=== PATIENT | female | born 1940 | race Caucasian/White ===

== ENCOUNTER 2020-01-24 12:26 | Outpatient (CLI) | payer MEDICARE, MEDICAID, SELFPAY ==
--- NOTE | 2020-01-24 12:45 | USCV_ITS ---
Janet Calvillo Age: 79 Gender: F : 1940 Exam Date: 01/24/2020 13:06 Ordering Phys: Ryann Boo MD ([email or web address]) Technologist: Harrison Castro Exam Location: [facility] [place] Indication: SOB BP: 112 / 65 HR: 71 Rhythm: Sinus Technical Quality: Fair MEASUREMENTS (Male / Female) Normal Values 2D ECHO LV Diastolic Diameter PLAX 4.6 cm 4.2 - 5.9 / 3.9 - 5.3 cm LV Systolic Diameter PLAX 3.4 cm IVS Diastolic Thickness 1.3 cm 0.6 - 1.0 / 0.6 - 0.9 cm IVS Systolic Thickness 1.0 cm LVPW Diastolic Thickness 1.1 cm 0.6 - 1.0 / 0.6 - 0.9 cm LVPW Systolic Thickness 1.2 cm LVOT Diameter 2.0 cm LV Ejection Fraction 2D Teich 51.1 % LV Ejection Fraction MOD 2C 68.7 % LV Ejection Fraction 2C AL 68.2 % LA Diameter 3.3 cm LA Width 2.7 cm LA Height 4.5 cm RA Width 3.5 cm RA Height 4.2 cm Aorta at Sinotubular Diameter 1.3 cm M-MODE LV Diastolic Diameter MM 5.7 cm 4.2 - 5.9 / 3.9 - 5.3 cm LV Systolic Diameter MM 4.0 cm LV Ejection Fraction MM Teich 55.7 % IVS Diastolic Thickness MM 1.0 cm 0.6 - 1.0 / 0.6 - 0.9 cm IVS Systolic Thickness MM 1.3 cm LVPW Diastolic Thickness MM 1.0 cm 0.6 - 1.0 / 0.6 - 0.9 cm LVPW Systolic Thickness MM 1.8 cm RV Diastolic Diameter MM 1.7 cm Aortic Annulus Diameter 3.4 cm LA Ao Ratio MM 1.1 MV E Point Septal Separation 1.1 cm DOPPLER AV Peak Velocity 314.0 cm/s LVOT Peak Velocity 115.0 cm/s AV Area Cont Eq vti 1.1 cm squared AV Area Cont Eq pk 1.2 cm squared MV Area PHT 3.1 cm squared Mitral E to A Ratio 0.8 MV E' Velocity 44.0 cm/s Mitral E to MV E' Ratio 9.5 Mitral E to LV E' Lateral Ratio 9.7 Mitral E to LV E' Septal Ratio 9.3 TR Peak Velocity 228.7 cm/s TR Peak Gradient 20.9 mmHg TV Peak E Velocity 69.0 cm/s Right Atrial Pressure 3.0 mmHg Pulmonary Artery Systolic Pressu 23.9 mmHg PV Peak Velocity 83.0 cm/s FINDINGS Left Ventricle Normal left ventricular size and systolic function, EF 64 %. Mild left ventricular hypertrophy. No regional wall motion abnormalities. Grade I/IV diastolic dysfunction (abnormal relaxation filling pattern), normal to mildly elevated filling pressures. Right Ventricle The right ventricle is normal in size and function. Right Atrium The right atrium is normal in size. Left Atrium The left atrium is normal in size. Mitral Valve No gross abnormalities noted Aortic Valve Thickened aortic valve. Trace to mild aortic valve regurgitation. Moderate aortic valve stenosis, mean gradient 18.5 mmHg, DORCAS 1.1 cm squared. Tricuspid Valve No gross abnormalities noted Pulmonic Valve Pulmonic valve not well visualized. Pericardium Normal pericardium without effusion. Aorta Normal ascending aorta dimension. CONCLUSIONS Normal left ventricular size and systolic function, EF 64 %. Mild left ventricular hypertrophy. No regional wall motion abnormalities. Grade I/IV diastolic dysfunction (abnormal relaxation filling pattern), normal to mildly elevated filling pressures. Moderate aortic valve stenosis, mean gradient 18.5 mmHg, DORCAS 1.1 cm squared. There is no pericardial effusion. There are no intracardiac masses. Compared to the study from 09/15/2018, there is no significant change in the gradient across the aortic valve Dr Ryann Boo MD [facility] (Electronically Signed) Final Date: 24 January 2020 17:28 S
== END 2020-01-24 12:27 | disposition home or self-care (01) ==
LOC: US 12:30
PROVIDERS: PCP Physician Assistant Medical; Visit Provider Internal Medicine Cardiovascular Disease
DX: I35.0 Nonrheumatic aortic (valve) stenosis (principal); R06.02 Shortness of breath
CPT/HCPCS: 93306

== ENCOUNTER 2020-10-06 15:25 | Outpatient (CLI) | payer MEDICARE, MEDICAID, SELFPAY ==
--- NOTE | 2020-10-06 | USCV_ITS ---
Janet Cavlillo Age: 80 Gender: F : 1940 Exam Date: 10/06/2020 15:53 Ordering Phys: Jorgito Meza PA-C XX Technologist: Harrison Castro Exam Location: [facility] [place] Indication: COUGH SOB BP: 110 / 70 HR: 82 Rhythm: Sinus Technical Quality: Poor because of body habitus MEASUREMENTS (Male / Female) Normal Values 2D ECHO LV Diastolic Diameter PLAX 5.2 cm 4.2 - 5.9 / 3.9 - 5.3 cm LV Systolic Diameter PLAX 3.9 cm IVS Diastolic Thickness 1.0 cm 0.6 - 1.0 / 0.6 - 0.9 cm IVS Systolic Thickness 1.6 cm LVPW Diastolic Thickness 1.0 cm 0.6 - 1.0 / 0.6 - 0.9 cm LVPW Systolic Thickness 1.9 cm LVOT Diameter 2.0 cm LV Ejection Fraction 2D Teich 49.7 % LV Ejection Fraction MOD 2C 67.1 % LV Ejection Fraction 2C AL 67.8 % LA Diameter 2.9 cm LA Width 2.4 cm LA Height 4.6 cm RA Width 2.6 cm RA Height 4.2 cm Aorta at Sinotubular Diameter 2.7 cm M-MODE Aortic Annulus Diameter 3.3 cm LA Ao Ratio MM 0.9 DOPPLER AV Peak Velocity 379.8 cm/s LVOT Peak Velocity 123.0 cm/s AV Area Cont Eq vti 1.1 cm squared AV Area Cont Eq pk 1.0 cm squared MV Area PHT 5.0 cm squared Mitral E to A Ratio 0.7 MV E' Velocity 41.0 cm/s Mitral E to MV E' Ratio 7.3 Mitral E to LV E' Lateral Ratio 8.6 Mitral E to LV E' Septal Ratio 6.4 TR Peak Velocity 325.3 cm/s TR Peak Gradient 42.3 mmHg TV Peak E Velocity 106.0 cm/s Right Atrial Pressure 3.0 mmHg Pulmonary Artery Systolic Pressu 45.3 mmHg PV Peak Velocity 77.0 cm/s FINDINGS Left Ventricle Normal left ventricular size and systolic function, EF 70 %. No regional wall motion abnormalities. Grade I/IV diastolic dysfunction (abnormal relaxation filling pattern), normal to mildly elevated filling pressures. Right Ventricle The right ventricle is normal in size and function. Right Atrium Normal right atrial size. Left Atrium Normal left atrial size. Mitral Valve Thickened mitral valve. Aortic Valve Trace aortic valve regurgitation. Moderate aortic valve stenosis, mean gradient 26.8 mmHg, DORCAS 1.1 cm squared. Tricuspid Valve No gross abnormalities noted Pulmonic Valve Pulmonic valve not well visualized. Pericardium No pericardial effusion. Aorta Normal ascending aorta dimension. CONCLUSIONS Normal left ventricular size and systolic function, EF 70 %. No regional wall motion abnormalities. Grade I/IV diastolic dysfunction (abnormal relaxation filling pattern), normal to mildly elevated filling pressures. Moderate aortic valve stenosis, mean gradient 26.8 mmHg, DORCAS 1.1 cm squared. Thickened mitral valve. There is no pericardial effusion. There are no intracardiac masses. Compared to the study from 01/24/2020, there may not be a significant change Dr Ryann Boo MD [facility] (Electronically Signed) Final Date: 06 October 2020 18:15 S
== END 2020-10-06 15:26 | disposition home or self-care (01) ==
LOC: RAD 15:27
PROVIDERS: PCP Physician Assistant Medical; Visit Provider Physician Assistant Medical
DX: R05 Cough (principal); I35.0 Nonrheumatic aortic (valve) stenosis; R06.02 Shortness of breath; I05.9 Rheumatic mitral valve disease, unspecified
CPT/HCPCS: 93306

== ENCOUNTER 2021-02-15 14:16 | Emergency (ER) | payer MEDICARE, MEDICAID, SELFPAY ==
--- NOTE | 2021-02-15 14:18 | XR_ITS ---
WS: [id number] Exam: XR ankle RT min 3V* [id number] Date/Time of Exam: 02/15/2021 2:20 PM Reason For Exam: injury/pain No acute fracture or dislocation. The ankle mortise is well-maintained. Soft tissues are unremarkable . XR/XR ankle RT min 3V* [id number] IMPRESSION: 1. No acute fracture or dislocation.
[2021-02-15 15:01] VITALS: BP 141/69; PULSE 84; RESP 18; TEMP 36.7; O2SAT 94; BMI 39.0
--- NOTE | 2021-02-15 15:03 | XR_ITS ---
WS: [id number] Exam: XR foot RT min 3V* [id number] Date/Time of Exam: 02/15/2021 3:05 PM Reason For Exam: injury/pain No acute fracture or dislocation. Osteopenia. Mild degenerative changes in the IP and midfoot joints . Plantar heel spur. 1 cm metallic fragment in the plantar soft tissues of the hindfoot may represent a wire fragment or needle fragment. XR/XR foot RT min 3V* 13855 IMPRESSION: 1. Metallic soft tissue foreign body about 1 cm in length resembling a needle f ragment or wire fragment within the plantar soft tissues of the hindfoot. 2. No bony injury. Osteopenia, minimal DJD.
--- NOTE | 2021-02-15 15:04 | ED_ITS ---
HPI - Extremity Injury (Lower) General: Chief Complaint: Extremity Injury, Lower Stated Complaint: FALL, R ANKLE INJURY Time Seen by Provider: 02/15/21 14:58 Source: patient Mode of arrival: ambulatory Limitations: no limitations History of Present Illness: HPI Narrative: Patient is a nice 80-year-old female who presents to ED today for evaluation of a right foot and ankle injury that she sustained after she slipped in dog poop and rolled it. She states she then fell onto her buttocks but has no pain here. No back or neck pain. Does not complain of hip/knee pain. Did not strike her head or lose consciousness. complaint: ankle injury and foot injury Onset (ago): hour(s) Place: home Severity: moderate Relieving factors: immobilization Exacerbating factors: weight bearing, movement and palpation Associated symptoms: Reports no associated symptoms Other symptoms: none Review of Systems Eyes: Denies: change in vision Card: Denies: chest pain, palpitations, syncope or pre-syncope Resp: Denies: dyspnea GI: Denies: abdominal pain, nausea or vomiting Musc: Reports: extremity pain (R foot), extremity swelling, joint pain (R ankle) and joint swelling; Denies: neck pain or back pain Neuro: Denies: numbness in extremities or sensory changes PFSH ED PFSH: Medical History Aortic stenosis Arthritis DVT (deep venous thrombosis) Hypertension Obesity Osteoporosis Pulmonary embolism Surgical History H/O: hysterectomy Hx of cataract surgery Hx of cholecystectomy S/P tonsillectomy Family History Other CAD (coronary artery disease) Cancer Diabetes Hyperlipidemia Hypertension Stroke Denies family history of Psychiatric illness Chronic kidney disease (CKD) Suicide Family history of premature coronary artery disease Lung disease Social History Smoking and tobacco status: never smoked Alcohol intake: current Physical Exam Const: COMMON NORMALS: no acute distress, patient oriented x3, no limitations and alert GENERAL APPEARANCE: cooperative NUTRITIONAL APPEARANCE: obese ORIENTATION/CONSCIOUSNESS: Yes awake, Yes oriented to person, Yes oriented to place and Yes oriented to time HENMT: COMMON NORMALS: normocephalic and atraumatic HEAD & SCALP: normocephalic and atraumatic Neck/C-Spine: COMMON NORMALS: full ROM CERVICAL SPINE: No pain with cervical ROM and No Cervical spine tenderness Back/Pelvis: COMMON NORMALS: thoracic and lumbar spine normal to inspection, no thoracic nor lumbar tenderness and thoraco-lumbar ROM normal Extremity: GENERAL: Yes normal exam except as noted RIGHT LOWER EXTREMITY: Yes foot & digits (TTP and swelling lateral ankle) Right ankle: Yes neurovascular exam (normal) and Yes foot & digits (TTP and mild swelling to dorsal R foot) Right foot and digits: Yes neurovascular exam (normal) Neuro: MARLENA COMA SCALE: document GCS findings Chrisman coma scale eye opening: Spontaneous Marlena coma scale verbal response: Orientated Chrisman coma scale motor response: Obey commands Marlena coma scale total score: 15 COMMON NORMALS: patient oriented x3, moves all extremities, no focal motor deficits and no sensory deficits noted SENSORIUM/ORIENTATION: Yes alert, Yes oriented to person, Yes oriented to place and Yes oriented to time Skin: COMMON NORMALS: no rashes or lesions noted GENERAL SKIN EXAM: no rashes or lesions noted TRAUMA: no lacerations or abrasions Course Vital Signs: Vital signs: Vital Signs Temperature 98.1 F 02/15/21 15:01 Pulse Rate 84 02/15/21 15:01 Respiratory Rate 18 02/15/21 15:01 Blood Pressure 141/69 02/15/21 15:01 Pulse Oximetry 94 02/15/21 15:01 MDM - Extremity Injury (Lower) MDM Narrative: Medical decision making narrative: Patient here for evaluation of a right ankle/foot injury. She has no acute fractures on XRs. On her foot XR she does have a foreign body to the plantar aspect. On clinical evaluation she has no recent puncture majano/injury or infection. This is most likely chronic/incidental. There is no need for intervention at this time. Imaging Data^: XR R ankle: Radiologist's impression: [address] [address] XRay Report Signed Patient: Janet Calvillo Unit #: [id number] : 1940 9 Age/Sex: 80 / F ADM Date: 02/15/21 Loc: ER Room/Bed: Attending Dr: Ordering Provider/Ordering MD: Imani Manzo Date of Service: 02/15/21 Procedure(s): XR ankle RT min 3V* 64443 Accession Number(s): [id number] Report Number: [id number] WS: [id number] Exam: XR ankle RT min 3V* [id number] Date/Time of Exam: 02/15/2021 2:20 PM Reason For Exam: injury/pain No acute fracture or dislocation. The ankle mortise is well-maintained. Soft tissues are unremarkable. XR/XR ankle RT min 3V* 12547 IMPRESSION: 1. No acute fracture or dislocation. Dictated By: Rajeev Whitten DO Signed By: Rajeev Whitten DO Signed Date/Time: 02/15/211431 DD/ 31 XR R foot: Radiologist's impression: [place] [address] [address]NMxt ReportSigned Patient: Floyd Calvillo #: [id number]: 1940cct#:[id number]/Sex: 80 / FADM Date: 02/15/21Loc: ERRoom/Bed:Attending Dr: Ordering Provider/Ordering MD: Imani Manzo Date of Service: 02/15/21 Procedure(s): XR foot RT min 3V* 03183 Accession Number(s): [id number] Report Number: [id number] WS: [id number] Exam: XR foot RT min 3V* [id number] Date/Time of Exam: 02/15/2021 3:05 PM Reason For Exam: injury/pain No acute fracture or dislocation. Osteopenia. Mild degenerative changes in the IP and midfoot joints. Plantar heel spur. 1 cm metallic fragment in the plantar soft tissues of the hindfoot may represent a wire fragment or needle fragment. XR/XR foot RT min 3V* 26452 IMPRESSION: 1. Metallic soft tissue foreign body about 1 cm in length resembling a needle fragment or wire fragment within the plantar soft tissues of the hindfoot. 2. No bony injury. Osteopenia, minimal DJD. Dictated By:Carlee Ordonez By:Carlee Ordonez Date/Time:02/15/21 1528DD/ 24 Discharge Plan Discharge Patient Disposition: Home Clinical Impression: Strain of ankle and foot Qualifiers: Encounter type: initial encounter Laterality: right Qualified Code(s): S96.911A - Strain of unspecified muscle and tendon at ankle and foot level, right foot, initial encounter Condition: Stable Prescriptions: No Action diphenhydramine HCl [Benadryl] 25 mg capsule 25 mg PO TID PRNRF: 0 vitamin B complex [B Complex-Vitamin B12] Tablet 1 tab PO DAILY RF: 0 calcium carb,lactat-vitamin D3 200 mg calcium -250 unit tablet 2 tab PO QAM RF: 0 meclizine 25 mg tablet 25 mg PO TID RF: 0 multivitamin Tablet 1 tab PO DAILY RF: 0 tolterodine 4 mg capsule,extended release 24hr 4 mg PO DAILY RF: 0 albuterol sulfate [Ventolin HFA] 90 mcg/actuation HFA aerosol inhaler 2 puff INHALATION Q6H PRNRF: 0 fluoxetine [Prozac] 20 mg capsule 20 mg PO DAILY RF: 0 levothyroxine 100 mcg capsule 100 mcg PO DAILY RF: 0 red yeast rice 600 mg capsule 600 mg PO BID RF: 0 furosemide [Lasix] 20 mg tablet 20 mg PO DAILY RF: 0 potassium chloride 10 mEq capsule, extended release 10 meq PO DAILY RF: 0 Prolia 60 mg/mL syringe 60 mg SUBCUT Q6M RF: 0 warfarin 5 mg tablet 5 mg PO DIRECTED RF: 0 Discharge Orders: Discharge ED (Routine); Ordered 02/15/21 Ordered By: Imani Manzo Referrals: Jorgito Meza [Primary Care Provider] - Patient Instructions: Ankle Sprain (ED) Coding Level of Care Code ED Agricultural Education Instructor for Chg Fwd Exam Detailed
== END 2021-02-15 16:17 | disposition home or self-care (01) ==
PROVIDERS: Emergency Provider Physician Assistant; PCP Physician Assistant Medical
DX: S96.911A Strain of unspecified muscle and tendon at ankle and foot level, right foot, initial encounter (principal); W18.31XA Fall on same level due to stepping on an object, initial encounter; Z79.01 Long term (current) use of anticoagulants
CPT/HCPCS: 73610; 73630; 99282

== ENCOUNTER → 2021-07-05 15:33 | Outpatient (BNVA) | payer MEDICARE, MEDICAID, SELFPAY | PROVIDERS: PCP Physician Assistant Medical; Visit Provider Internal Medicine Cardiovascular Disease | DX: I35.0 Nonrheumatic aortic (valve) stenosis (principal); R06.02 Shortness of breath; I11.0 Hypertensive heart disease with heart failure; I50.33 Acute on chronic diastolic (congestive) heart failure; I82.5Y3 Chronic embolism and thrombosis of unspecified deep veins of proximal lower extremity, bilateral; I27.82 Chronic pulmonary embolism; E66.01 Morbid (severe) obesity due to excess calories; Z68.41 Body mass index [BMI] 40.0-44.9, adult | CPT/HCPCS: 80048; 83880; 99215 ==

== ENCOUNTER → 2021-07-19 10:40 | Outpatient (BNVA) | payer MEDICARE, MEDICAID, SELFPAY | PROVIDERS: PCP Physician Assistant Medical; Visit Provider Internal Medicine Pulmonary Disease | DX: I27.82 Chronic pulmonary embolism (principal); J84.9 Interstitial pulmonary disease, unspecified; I26.99 Other pulmonary embolism without acute cor pulmonale; I35.0 Nonrheumatic aortic (valve) stenosis; R91.8 Other nonspecific abnormal finding of lung field; I82.5Y3 Chronic embolism and thrombosis of unspecified deep veins of proximal lower extremity, bilateral; I10 Essential (primary) hypertension; E66.9 Obesity, unspecified | CPT/HCPCS: 80053; 85025; 85651; 86140; 86160; 86162; 86200; 86225; 86235; 86255; 86376; 86431; 99204 ==

== ENCOUNTER → 2021-08-01 16:27 | Outpatient (BNVA) | payer MEDICARE, MEDICAID, SELFPAY | PROVIDERS: PCP Physician Assistant Medical; Visit Provider Nurse Practitioner Family | DX: N39.0 Urinary tract infection, site not specified (principal); R31.0 Gross hematuria | CPT/HCPCS: 81003; 87086; 88112 ==

== ENCOUNTER 2021-09-04 07:34 | Outpatient (CLI) | payer MEDICARE, MEDICAID, SELFPAY ==
--- NOTE | 2021-09-04 07:30 | CT_ITS ---
WS: [id number] CT ABDOMEN PELVIS TECHNIQUE: Noncontrast CT of the abdomen and contrast-enhanced CT of the abdomen and pelvis with gabe nal and sagittal reformatted images. CLINICAL INFORMATION: GROSS HEMATURIA COMPARISON: Outside examinations Ultrasound July 03, [address] June 04, 2021. DLP: 3628.[address] scans at [facility] use at least one of these dose optimization techniques: automated e xposure control; mA and/or kV adjustment per patient size (includes targeted exams where dose is matc hed to clinical indication); or iterative reconstruction. FINDINGS: Prior hysterectomy. Previously described RIGHT hydronephrosis has resolved. Mild bilateral renal remedios ical atrophy. Normal renal parenchymal enhancement. Normal adrenal glands. Prominent RIGHT extrarenal pelvis with layering contrast on the delayed images. Contrast not seen bey ond the RIGHT renal pelvis RIGHT kidney. Normal LEFT ureteral excretion without evidence of obstructi on. Contrast visualized in the bladder. The prior outside examination demonstrates masslike filling defect in the proximal ureter with strict uring. Persistent similar appearance of the proximal and mid ureter today. Recommend ureteroscopy. Fi ndings suspicious for TCC. Abnormal enhancement involving the mid and distal RIGHT ureter distal to t he area of stricture. Mild diffuse fatty infiltration of the liver. Prior cholecystectomy. Normal portal vein and splenic v ein. Normal pancreatic parenchymal enhancement. Small esophageal hiatal hernia. Adrenal glands are no rmal. Normal caliber abdominal aorta. Aortic calcification. No evidence of high-grade small or large bowel obstruction. Tiny fat-containing umbilical hernia. Lumbar curve. Disc space narrowing throughou t the lumbar spine. CT/CT abdomen pelvis wo/w [id number] IMPRESSION: 1. Previously described hydronephrosis RIGHT kidney on the outside examination has resolved. 2. Prominent RIGHT extrarenal pelvis with stricture near the UPJ with soft tis jacob filling defect better seen on the outside examination. This is similar in a ppearance today with abnormal enhancement in the RIGHT proximal and mid ureter suspicious for TCC. Contrast does not traverse distal to the stricture. Recomme nd ureteroscopy in further evaluation. 3. Normal renal parenchymal enhancement bilaterally. 4. Normal emptying of the LEFT ureter. 5. Prior hysterectomy. 6. Prior cholecystectomy.
[2021-09-04] MEDS: iohexol 300 mg/mL 100 mL Btl IV (08:47)
== END 2021-09-04 07:35 | disposition home or self-care (01) ==
LOC: RAD 07:36
PROVIDERS: PCP Physician Assistant Medical; Visit Provider Urology
DX: R31.0 Gross hematuria (principal); Z90.49 Acquired absence of other specified parts of digestive tract; Z90.710 Acquired absence of both cervix and uterus; N13.30 Unspecified hydronephrosis; N28.9 Disorder of kidney and ureter, unspecified; Z87.440 Personal history of urinary (tract) infections
CPT/HCPCS: 74178; 81003; 99214

== ENCOUNTER 2021-09-19 06:37 | Day surgery (SDC) | payer MEDICARE, MEDICAID, SELFPAY ==
[2021-09-18 13:34] VITALS: BMI 37.4
[2021-09-19] VITALS (7 sets, daily range): BP systolic 111–143; BP diastolic 54–85; PULSE 18–70; RESP 18–20; TEMP 36.1–36.8; O2SAT 92–96
--- NOTE | 2021-09-19 | SCC_ITS ---
Procedure done: 1. Cystoscopy, left retrograde ureteropyelogram 2. Left flexible ureterorenoscopy 56.4 seconds of fluoroscopic guidance, for a cumulative dose of 22.98 mGy, was provided to Dr. Borjas by the radiology department. C-arm images of the abdomen were saved for the patient's permanent record. [facility]
--- NOTE | 2021-09-19 06:10 | P.HPUD_ITS ---
Surgery/Procedure H&P Update DATE OF PROCEDURE: September 19, 2021 DATE H&P PERFORMED: 09/04/21 H&P UPDATE INFORMATION: I have reviewed H&P completed within last 30 days, I have examined patient prior to procedure, No changes to prior documentation and H&P is in [facility] [place] EMR on date indicated CHANGES TO PREVIOUS DOCUMENTATION: Confirmed prior information. Films reviewed preoperatively. Questions answered. Proceed as scheduled. Reviewed with daughter as well PLANNED PROCEDURE: Operation Date: 09/19/21 08:05 Proposed Procedures p CYSTOSCOPY RIGHT RETROGRADE URETEROSCOPY POSSIBLE BIOPSY STENT [address] [id number]/N13.30/N28.9(Not Applicable) - Hesham Borjas MD s Retrograde Pyelogram(Right) - Hesham Borjas MD s URETEROSCOPY POSSIBLE BIOPSY(Right) - Hesham Borjas MD s Ureteral Stent Placement(Right) - Hesham Borjas MD
--- NOTE | 2021-09-19 06:50 | SC_ITS ---
WS: [id number] C-arm fluoroscopy for right ureteral stent placement, 09/19/2021 Clinical Data: Preop right ureteroscopy, filling defect on CT scan Comparison: None. Findings: Dr. Borjas placed a right ureteral stent ending in the right renal pelvis. SC/C-arm [place] for Urology Impression: Right ureteral stent placement
[2021-09-19] MEDS: sodium chloride 0.9% 1,000 ML 30 ML IV (07:24)
[2021-09-19 07:37] LABS: Basophils # 0.1 10^3/uL (0.0-0.1); Basophils % 1.8 %; Eosinophils # 0.4 10^3/uL (0.0-0.8); Eosinophils % 7.3 %; Hematocrit 41.9 % (37.0-47.0); Hemoglobin 13.1 g/dL (11.5-15.3); Lymphocytes % 17.4 %; Mean Corpuscular HGB Conc 31.3 g/dL (30.0-36.0); Mean Corpuscular Volume 92.9 fl (81-99); Mean Platelet Volume 10.8 fL (7.4-10.4); Monocytes # 0.5 10^3/uL (0.2-0.9); Monocytes % 8.7 %; Neutrophils # 3.65 10^3/uL (1.8-7.7); Neutrophils % 64.6 %; Nucleated Red Blood Cells % 0 %; Platelet Count 267 10^3/cmm (130-400); Red Blood Count 4.51 10^6/uL (4.1-5.3); Red Cell Distribution Width 13.7 % (12.1-15.1); White Blood Count 5.6 10^3/uL (4.0-10.0)
--- NOTE | 2021-09-19 08:01 | PM.OP ---
Operative Report Date of procedure: September 19, 2021 Pre-op diagnosis: Filling defect right kidney Post-op diagnosis: Normal retrograde ureteropyelogram and flexible ureterorenoscopy. No evidence of mass Procedure done: 1. Cystoscopy, left retrograde ureteropyelogram 2. Left flexible ureterorenoscopy Pathology: None Surgeon: [place] Anesthesia: General Urine output: Not measured Complications: None Findings: Normal retrograde ureteropyelogram and flexible ureterorenoscopy. Area of filling defect on CT scan with contrast probably represented layering of the contrast rather than an actual mass Brief History: Ms. Calvillo is a very pleasant 81-year-old white female originally evaluated for gross hematuria, moderate right hydronephrosis, renal colic, and right hydroureter of unclear etiology. Previous work-up was performed at [facility] in [place] where a cystoscopy and right retrograde ureteropyelogram showed an extrarenal pelvis with no obvious filling defects. 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 It was recommended to perform a follow-up CT scan with contrast to reevaluate after her symptoms had resolved. That CT scan was performed on 09/04/2021 and demonstrated a filling defect in the right proximal ureter/UPJ area on the anterior aspect. There was no clear soft tissue density though on the noncontrasted portion of the CT scan. Based on the uncertainty it was recommended to perform a cystoscopy retrograde right flexible ureteral renoscopy for further evaluation possible biopsy possible stent. Procedure: After routine preoperative evaluation examination and obtaining of informed consent, confirmation of being off of warfarin for 4 to 5 days, she was taken to the operating suite on 09/19/2021 where general anesthesia was administered without difficulty after appropriate timeout was performed, SCDs confirmed to be functioning, preoperative antibiotics administered, beta-polina protocol confirmed. Prepped and draped in usual sterile fashion in dorsolithotomy position paying careful attention to avoiding pressure points. 21 Nigerian cystoscope with 30 degree lens was introduced into the urethra meatus and advanced into the bladder to videoscopy. Bladder was systematically examined and found to be within normal limits. An 8 Nigerian cone-tip catheter was intubated into the right ureteral orifice for RIGHT RETROGRADE URETEROPYELOGRAM: The ureter appeared normal throughout its course. There was evidence of extrarenal pelvis but no evidence of hydronephrosis or calyceal dilation and no clear evidence of a filling defect. A flexible tip guidewire was then advanced up the right ureter without difficulty and a 7 Nigerian flexible ureteroscope was then advanced over the guidewire up the right ureter easily. The area of the proximal ureter and UPJ portion of the renal pelvis was carefully inspected and no filling defect was seen. The entire renal pelvis and calyceal system were visually inspected and no abnormality was identified. This was a normal ureterorenoscopy The scope was then removed under direct vision and the ureter was confirmed on removal to be normal. There is no significant dilation or evidence of inflammatory changes. The bladder was drained and the procedure was completed. She tolerated procedure well without complications and was awakened in the operating room and returned to the recovery room in stable condition. PLANS: 1. Anticipate discharge from outpatient surgery 2. We will follow-up on a as needed basis. Reviewed symptoms of concern for which we should hear back from her. This was discussed with the patient's daughter who is attentive in the patient's care.
--- NOTE | 2021-09-19 08:07 | ANES.PREANE2 ---
Pre-Anesthetic Assessment Height/Weight: Height 1.68 m Weight 105.233 kg Temp Pulse Resp BP Pulse Ox 97.0 F L 18 L 18 127/70 96 09/19/21 07:09 09/19/21 07:09 09/19/21 07:09 09/19/21 07:09 09/19/21 07:09 Preop Diagnosis: Filling defect right kidney Operation Date: 09/19/21 08:05 Proposed Procedures p CYSTOSCOPY RIGHT RETROGRADE URETEROSCOPY POSSIBLE BIOPSY STENT [id number] [facility] 26 [id number]/N13.30/N28.9(Not Applicable) - Hesham Borjas MD s Retrograde Pyelogram(Right) - Hesham Borjas MD s URETEROSCOPY POSSIBLE BIOPSY(Right) - Hesham Borjas MD s Ureteral Stent Placement(Right) - Hesham Borjas MD Familial anesthetic complications: none Was Beta Sixto taken within 24 hours: N/A Was Clonidine taken within 24 hours: N/A Last intake: Intake Last Liquid Date 09/18/21 Last Liquid Time 18:00 Last Solid Date 09/18/21 Last Solid Time 18:00 Social No alcohol and No tobacco Exam alert, oriented x 3, clear to auscultation bilaterally and regular rate & rhythm Airway Submandibular: within normal limits Cervical ROM: within normal limits Mallampati: Class II Dentition: chipped Pulmonary Exertional Dyspnea and Shortness of Breath Hx of PE CV/HEM Deep Vein Thrombosis and Murmur TTE 10/06/2020 CONCLUSIONS ?Normal left ventricular size and systolic function, EF 70 %. No ?regional wall motion abnormalities. Grade I/IV diastolic ?dysfunction (abnormal relaxation filling pattern), normal to ?mildly elevated filling pressures. ?Moderate aortic valve stenosis, mean gradient 26.8 mmHg, DORCAS 1.1 ?cm squared. ?Thickened mitral valve. ?There is no pericardial effusion. ?There are no intracardiac masses. ?Compared to the study from 01/24/2020, there may not be a ?significant change ?Dr Ryann Boo MD [facility] ?(Electronically Signed) ?Final Date:? ? ? 06 October 2020 Hematuria Hydronephrosis Hepatic None reported GI Gastroesophageal Reflux Disease Metabolic None reported Musc/skel Osteoarthritis/DJD Neuropsych Anxiety Anesthetic Plan ASA status: 3 (81 year old female with hydronephrosis, hematuria, moderate , HTN, GERD, SOB) Anesthesia: Anesthesia Evaluation and General Other: We discussed risk and benefits of general anesthesia including PONV, sore throat (sometimes severe), corneal abrasion, positioning and peripheral nerve injuries, life threatening allergic reaction, post operative ICU admission requiring prolonged intubation, stroke, heart attack, , and rare incidences of recall. Patient consents to proceed with general anesthesia. Risk of > 500 ml blood loss (7ml/kg in children): No Medications/Allergies Home Medications Medication Instructions Recorded Confirmed Last Taken Type calcium carb and lactate 200 1 tab PO QAM 12/28/19 09/19/21 09/18/21 History mg-vitamin D3 6.25 mcg (250 unit) tablet diphenhydramine HCl 25 mg capsule 25 mg PO TID PRN 12/28/19 09/19/21 Unknown History (Benadryl) fluoxetine 20 mg capsule (Prozac) 20 mg PO DAILY 12/28/19 09/19/21 09/18/21 History furosemide 20 mg tablet (Lasix) 20 mg PO DAILY 12/28/19 09/19/21 09/18/21 History levothyroxine 100 mcg capsule 100 mcg PO DAILY 12/28/19 09/19/21 09/19/21 History meclizine 25 mg tablet 25 mg PO TID 12/28/19 09/19/21 09/18/21 History multivitamin 1 tab PO DAILY 12/28/19 09/19/21 09/18/21 History potassium chloride 10 mEq 10 meq PO DAILY 12/28/19 09/19/21 09/18/21 History capsule,extended release red yeast rice 600 mg capsule 600 mg PO BID 12/28/19 09/19/21 09/18/21 History tolterodine 4 mg capsule,extended 4 mg PO DAILY 12/28/19 09/19/21 09/18/21 History release 24 hr vitamin B complex (B 1 tab PO DAILY 12/28/19 09/19/21 09/18/21 History Complex-Vitamin B12) denosumab 60 mg/mL subcutaneous 60 mg SUBCUT Q6M ml 06/26/20 09/19/21 Unknown History syringe (Prolia) warfarin 5 mg tablet 5 mg PO DIRECTED tab 06/26/20 09/19/21 09/15/21 History cyanocobalamin (vitamin B-12) 2,500 mcg PO DAILY 07/19/21 09/19/21 09/18/21 History 2,500 mcg tablet vitamin E mixed 1,000 unit capsule 4,000 unit PO DAILY cap 07/19/21 09/19/21 09/18/21 History Allergies Allergy/AdvReac Type Severity Reaction Status Date / Time adhesive Allergy Unknown unknown Verified 09/19/21 07:03 ciprofloxacin [From Cipro] Allergy Unknown unknown Verified 09/19/21 07:03 erythromycin base Allergy Unknown unknown Verified 09/19/21 07:03 gabapentin [From Neurontin] Allergy Unknown unknown Verified 09/19/21 07:03 hydrocodone [From Vicodin] Allergy Unknown unknown Verified 09/19/21 07:03 Influenza Virus Vaccines Allergy Unknown unknown Verified 09/19/21 07:03 tetanus toxoid, adsorbed Allergy Unknown unknown Verified 09/19/21 07:03 tramadol [From Ultram] Allergy Unknown unknown Verified 09/19/21 07:03 aspirin Allergy stomach Verified 09/19/21 07:03 pain, unbearable egg Allergy unknown Verified 09/19/21 07:03 NSAIDS (Non-Steroidal Allergy heartburn, Verified 09/19/21 07:03 Anti-Inflamma stomach pain Tetanus Vaccines and Toxoid Allergy unknown Verified 09/19/21 07:03 Current Medications Generic Name Dose Route Start Last Admin Trade Name Freq PRN Reason Stop Dose Admin Sodium Chloride 1,000 mls @ 30 mls/hr 09/19/21 07:00 09/19/21 07:24 Sodium Chloride 0.9% IV 09/20/21 06:59 30 mls/hr .Q24H GREGORIO Administration PFSH Anesthesia Medical History Aortic stenosis Arthritis DVT (deep venous thrombosis) Gross hematuria Hydronephrosis of right kidney Hypertension Obesity Osteoporosis Pulmonary embolism Surgical History H/O: hysterectomy Hx of cataract surgery Hx of cholecystectomy S/P tonsillectomy Family History Father , AT 92 CHF (congestive heart failure) Mother , AT 100 of unknown cause Other CAD (coronary artery disease) Cancer Diabetes Hyperlipidemia Hypertension Stroke Denies family history of Psychiatric illness Chronic kidney disease (CKD) Suicide Family history of premature coronary artery disease Lung disease Social History Smoking and tobacco status: never smoked Alcohol intake: never Marital status: / Current occupational status: retired and disabled History of recent travel: No Data Anesthesia : 09/19/21 07:20 09/19/21 07:20 Short CBC 09/19/21 Range/Units 07:20 WBC 5.6 (4.0-10.0) 10^3/uL Hgb 13.1 (11.5-15.3) g/dL Hct 41.9 (37.0-47.0) % MCV 92.9 (81-99) fl Plt Count 267 (130-400) 10^3/cmm Neut % (Auto) 64.6 % Neut # (Auto) 3.65 (1.8-7.7) 10^3/uL Cardiac Studies: Echocardiogram Ultrasound 10/06/20
[2021-09-19 08:10] LABS: Alanine Aminotransferase 11 U/L (0-33); Albumin Level 4.1 g/dL (3.5-5.2); Alkaline Phosphatase 100 IU/L (35-105); Anion Gap 12.4 (5-19); Aspartate Amino Transferase 17 U/L (0-32); Blood Urea Nitrogen 18 mg/dL (8-23); Calcium 9.7 mg/dL (8.5-10.5); Carbon Dioxide 26 mmol/L (22-29); Chloride 107 mmol/L (98-107); Globulin 2.8 g/dL (1.3-4.6); Glucose 99 mg/dL (65-115); Osmolality Calculated 294 mOsm/kg (285-295); Potassium 4.4 mmol/L (3.5-5.1); Sodium 141 mmol/L (136-145); Total Bilirubin 0.2 mg/dL (0.15-1.2); Total Protein 6.9 g/dL (6.6-8.7)
--- NOTE | 2021-09-19 10:35 | ANE.PACU2 ---
Inpatient post-anesthesia follow up: Airway intact: Yes Vital signs: Temperature 98.3 F Pulse Rate 69 Respiratory Rate 18 Blood Pressure 120/64 Pulse Oximetry 94 Oxygen Delivery Me thod Room Air Oxygen Flow Rate Fraction of Inspir ed Oxygen Hydration adequate: Yes Nausea and vomiting: No Pain level: 1 Mental status: Baseline
== END 2021-09-19 09:37 | disposition home or self-care (01) ==
PROVIDERS: PCP Family Medicine; Visit Provider Urology
PROC: 0TJB8ZZ Inspection of Bladder, Via Natural or Artificial Opening Endoscopic (ICD-10-PCS; CPT 52000; principal; 2021-09-19 07:55)
PROC: (CPT 74420; 2021-09-19 07:55)
PROC: 0TJ98ZZ Inspection of Ureter, Via Natural or Artificial Opening Endoscopic (ICD-10-PCS; CPT 52351; 2021-09-19 07:55)
DX: R93.41 Abnormal radiologic findings on diagnostic imaging of renal pelvis, ureter, or bladder (principal); Z79.01 Long term (current) use of anticoagulants; M19.90 Unspecified osteoarthritis, unspecified site; Z86.718 Personal history of other venous thrombosis and embolism; E66.9 Obesity, unspecified; Z68.37 Body mass index [BMI] 37.0-37.9, adult; M81.0 Age-related osteoporosis without current pathological fracture; F41.9 Anxiety disorder, unspecified
CPT/HCPCS: 52351; 36415; 76000; 80053; 85025; J1100; J2405; J2704; J3010; J7030

== ENCOUNTER → 2021-10-12 11:30 | Outpatient (BNVA) | payer MEDICARE, MEDICAID, SELFPAY | PROVIDERS: PCP Family Medicine; Visit Provider Nurse Practitioner Family | DX: I35.0 Nonrheumatic aortic (valve) stenosis (principal) | CPT/HCPCS: 99213 ==

== ENCOUNTER 2021-10-18 11:31 | Outpatient (CLI) | payer MEDICARE, MEDICAID, SELFPAY ==
--- NOTE | 2021-10-18 12:00 | CT_ITS ---
WS: [id number] CT CHEST CT-HIGH RESOLUTION, NONCONTRAST. HISTORY: 06/13/2021 Technique: High-resolution chest CT is performed in inspiration, expiration, supine and prone positio caridad. All CT scans at [facility] use at least one of these dose optimization techniques: automated exposure control; mA and/or kV adjustment per patient size (includes targeted exams where dose is mat ched to clinical indication); or iterative reconstruction. DLP: 2113.80 mGy.cm COMPARISON: 05/31/2016 and 06/13/2021 Findings: Lungs are well-aerated. No lobar collapse or atelectasis. Stable 3 mm noncalcified nodule L EFT upper lobe adjacent to the heart. Additional stable 7 mm nodule RIGHT lower lobe. Both of these n odules were present on the examination from 05/31/2016. No new nodule. No air trapping. No honeycombin g or bronchiectasis. No endobronchial lesions. No pericardial or pleural effusions. No mediastinal or hilar lymph nodes. Mild atherosclerosis aorta. Normal size pulmonary artery. Small hiatal hernia. Prior cholecystectomy. CT/CT chest wo con [id number] Impression: 1. No pneumonia. 2. No honeycombing or bronchiectasis. 3. Long-term stability 7 mm RIGHT lower lobe and 3 mm LEFT upper lobe nodules.
== END 2021-10-18 11:32 | disposition home or self-care (01) ==
LOC: RAD 11:38
PROVIDERS: PCP Family Medicine; Visit Provider Internal Medicine Pulmonary Disease
DX: R91.8 Other nonspecific abnormal finding of lung field (principal); I26.99 Other pulmonary embolism without acute cor pulmonale
CPT/HCPCS: 71250

== ENCOUNTER 2021-11-29 08:52 | Outpatient (CLI) | payer MEDICARE, MEDICAID, SELFPAY ==
--- NOTE | 2021-11-29 09:02 | USCV_ITS ---
Janet Calvillo Age: 81 Gender: F : 1940 Exam Date: 11/29/2021 09:37 Ordering Phys: Ryann Boo MD ([email or web address]) Technologist: DEMETRIA Exam Location: [facility] [place] Indication: AORTIC VALVE STENOSIS BP: 126 / 68 HR: 70 Rhythm: Sinus Technical Quality: Adequate MEASUREMENTS (Male / Female) Normal Values 2D ECHO LVOT Diameter 2.0 cm LV Ejection Fraction MOD 2C 59.2 % LV Ejection Fraction 2C AL 61.4 % LA Diameter 3.5 cm LA Width 2.6 cm LA Height 4.0 cm RA Width 3.0 cm RA Height 3.9 cm Aorta at Sinotubular Diameter 2.7 cm IVC Diameter 1.4 cm M-MODE Aortic Annulus Diameter 2.1 cm LA Ao Ratio MM 1.6 MV E Point Septal Separation 0.7 cm DOPPLER AV Peak Velocity 339.3 cm/s LVOT Peak Velocity 121.0 cm/s AV Area Cont Eq vti 1.2 cm squared AV Area Cont Eq pk 1.1 cm squared MV Peak Velocity 116.0 cm/s MV Area PHT 2.3 cm squared Mitral E to A Ratio 0.9 MV E' Velocity 48.5 cm/s Mitral E to MV E' Ratio 8.9 Mitral E to LV E' Lateral Ratio 10.4 Mitral E to LV E' Septal Ratio 7.9 TR Peak Velocity 313.3 cm/s TR Peak Gradient 39.3 mmHg TR Mean Velocity 206.4 cm/s TR Mean Gradient 20.8 mmHg TR Velocity Time Integral 71.4 cm TV Peak E Velocity 62.0 cm/s Right Atrial Pressure 3.0 mmHg Pulmonary Artery Systolic Pressu 42.3 mmHg PV Peak Velocity 142.0 cm/s RV Acceleration Time 0.1 s RV Ejection Time 0.3 s RV AcT/ET 0.3 FINDINGS Left Ventricle Normal left ventricular size and systolic function, EF 60 %. . No regional wall motion abnormalities. Right Ventricle The right ventricle is normal in size and function. Right Atrium The right atrium is normal in size. Left Atrium The left atrium is normal in size. Mitral Valve Thickened mitral valve. Mild mitral annular calcification. Mild mitral valve regurgitation. Aortic Valve Moderate aortic valve regurgitation. Moderate aortic valve calcification. Moderate aortic valve stenosis, mean gradient 25.9 mmHg, DORCAS 1.2 cm squared. Tricuspid Valve Mild tricuspid valve regurgitation. Pulmonic Valve Pulmonic valve not well visualized. Pericardium Normal pericardium without effusion. Aorta Normal ascending aorta dimension. IVC Normal inferior vena cava. CONCLUSIONS Normal left ventricular size and systolic function, EF 60 %. . No regional wall motion abnormalities. Thickened mitral valve. Mild mitral annular calcification. Mild mitral valve regurgitation. Moderate aortic valve regurgitation. Moderate aortic valve calcification. Moderate aortic valve stenosis, mean gradient 25.9 mmHg, DORCAS 1.2 cm squared. Mild mitral annular calcification. Mild mitral valve regurgitation. Mild tricuspid valve regurgitation. There is no pericardial effusion. There are no intracardiac masses. Dr Ryann Boo MD [facility] (Electronically Signed) Final Date: 29 November 2021 13:58 S
--- NOTE | 2021-11-29 14:16 | PFTS_ITS ---
Date of Study:11/29/21 Date of Dictation: 12/03/2021 MECHANICS: Postbronchodilator forced vital capacity (FVC) is normal. Postbronchodilator forced expiratory volume in one second (FEV1) is normal. FEV1/FVC is normal. There is significant response to bronchodilator.. FLOW VOLUME LOOP: Sloping of end expiratory limb suggestive of airflow obstruction LUNG VOLUMES: Not measured DIFFUSING CAPACITY FOR CARBON MONOXIDE: Mildly reduced . INTERPRETATION: The postbronchodilator spirometry is normal.? There is significant postbronchodilator response.? Lung volumes are not measured.? There is mild gas transfer defect.? Constellation of findings suggestive of reversible airway obstructive ventilatory diseases like asthma or early COPD. Clinical correlation recommended. MTDD
== END 2021-11-29 08:53 | disposition home or self-care (01) ==
LOC: RAD 08:52
PROVIDERS: PCP Family Medicine; Visit Provider Internal Medicine Pulmonary Disease
DX: I35.0 Nonrheumatic aortic (valve) stenosis (principal); I05.9 Rheumatic mitral valve disease, unspecified; I07.1 Rheumatic tricuspid insufficiency
CPT/HCPCS: 93306; 94060; 94618; 94729; J7611

== ENCOUNTER → 2021-12-04 10:50 | Outpatient (BNVA) | payer MEDICARE, MEDICAID, SELFPAY | PROVIDERS: PCP Family Medicine; Visit Provider Internal Medicine Cardiovascular Disease | DX: R06.02 Shortness of breath (principal); I10 Essential (primary) hypertension; E78.5 Hyperlipidemia, unspecified; I82.409 Acute embolism and thrombosis of unspecified deep veins of unspecified lower extremity; I26.99 Other pulmonary embolism without acute cor pulmonale | CPT/HCPCS: 36415; 80048; 83880; 99214 ==

== ENCOUNTER → 2022-06-04 10:02 | Outpatient (BNVA) | payer MEDICARE, MEDICAID, SELFPAY | PROVIDERS: PCP Family Medicine; Visit Provider Internal Medicine Cardiovascular Disease | DX: I35.0 Nonrheumatic aortic (valve) stenosis (principal); J98.8 Other specified respiratory disorders; I27.82 Chronic pulmonary embolism; I82.5Y3 Chronic embolism and thrombosis of unspecified deep veins of proximal lower extremity, bilateral; I10 Essential (primary) hypertension; E78.5 Hyperlipidemia, unspecified; Z79.01 Long term (current) use of anticoagulants | CPT/HCPCS: 99214 ==

== ENCOUNTER 2022-10-28 12:09 | Outpatient (CLI) | payer MEDICARE, MEDICAID, SELFPAY ==
--- NOTE | 2022-10-28 12:13 | MM_ITS ---
WS: [id number] BILATERAL 3D TOMOSYNTHESIS DIGITAL DIAGNOSTIC MAMMOGRAPHY WITH CAD CLINICAL INFORMATION: LT BREAST LUMP HISTORY: LEFT breast lump COMPARISON: January 13, 2020 TECHNIQUE: Bilateral CC, MLO, and ML views. FINDINGS: The breasts are composed of heterogeneous fibroglandular density, which can limit the detection of sm all underlying mass lesions. Palpable marker upper outer LEFT breast. Deep to the palpable marker is a lobulated suspicious parenchymal mass measuring 2.5 x 3.5 CM. Adjacent surrounding architectural di stortion extends deep to the palpable marker. Lobulated mass in combination with surrounding architec tural distortion measures 5.9 CM suspicious for surrounding parenchymal invasion. Associated trabecul ar thickening extending into the anterior breast. Ultrasound described below. No suspicious lesions RIGHT breast. Vascular calcification. Punctate and secretory calcifications. ULTRASOUND BREAST LEFT TECHNIQUE: Ultrasound left breast focused area of concern. CLINICAL INFORMATION: LT BREAST LUMP COMPARISON: January 13, 2020 FINDINGS: Ultrasound LEFT breast in the area of concern 3:00 position 5 cm from the nipple. Hypoechoic solid lo bulated mass compatible with neoplasm measuring 5.1 x 2.4 x 2.8 cm. Recommend further evaluation with ultrasound-guided biopsy. Ultrasound LEFT axilla demonstrates no lymphadenopathy. MM/[place] [id number] IMPRESSION: BI-RADS: 5-Highly Suggestive of Malignancy FOLLOW UP: US Guided Biopsy Recommended RECOMMEND ULTRASOUND-GUIDED BIOPSY OF THE SUSPICIOUS LEFT BREAST MASS.
== END 2022-10-28 12:10 | disposition home or self-care (01) ==
PROVIDERS: PCP Family Medicine; Visit Provider Family Medicine
DX: N63.25 Unspecified lump in the left breast, overlapping quadrants (principal)
CPT/HCPCS: 76642; 77062; G0279

== ENCOUNTER 2022-11-13 12:09 | Outpatient (CLI) | payer MEDICARE, MEDICAID, SELFPAY ==
--- NOTE | 2022-11-13 12:21 | US_ITS ---
WS: [id number] ULTRASOUND-GUIDED LEFT BREAST BIOPSY HISTORY: MASS OF LEFT BREAST/ABNORMAL MAMMO OF L BREAST COMPARISON: 10/28/2022 Procedure, risks and complications are explained to the patient. Medications are reviewed. Consent is obtained. The mass in the LEFT breast is localized with ultrasound. Mass localizes to 3:00. Skin is cleansed wi th ChloraPrep and anesthetized with 1% buffered lidocaine. Small dermatome is made. Under sterile con ditions mass is biopsied with a 14-gauge Achieve needle. Multiple core biopsies are performed. Materi al placed in formalin and sent to pathology for review. No complications encountered. Breast tissue marker (Bard ultrasound enhanced ribbon): Single. Patient left the radiology suite with no complications. Patient is instructed to return to [facility] or [facility] with any concerns. US/[place] [id number] IMPRESSION: 1. Uncomplicated core needle biopsy LEFT breast mass at 3:00. PATHOLOGY: Invasive ductal carcinoma. Breast prognostic profile will be reporte d separately. RECOMMENDATION: Follow-up with oncology and breast surgeon.
[2022-11-19 08:14] LABS: Breast Profile ER,PR,HER2,Ki-6 See Report
== END 2022-11-13 12:10 | disposition home or self-care (01) ==
PROVIDERS: PCP Family Medicine; Visit Provider Nurse Practitioner Family
DX: C50.412 Malignant neoplasm of upper-outer quadrant of left female breast (principal); R92.8 Other abnormal and inconclusive findings on diagnostic imaging of breast
CPT/HCPCS: 19083; 88305; 88361; 88374

== ENCOUNTER → 2022-11-22 13:30 | Outpatient (BNVA) | payer MEDICARE, MEDICAID, SELFPAY | PROVIDERS: PCP Family Medicine; Visit Provider Surgery | DX: N64.59 Other signs and symptoms in breast (principal); Z85.3 Personal history of malignant neoplasm of breast; C50.919 Malignant neoplasm of unspecified site of unspecified female breast | CPT/HCPCS: 99205 ==

== ENCOUNTER → 2022-12-10 12:35 | Outpatient (BNVA) | payer MEDICARE, MEDICAID, SELFPAY | PROVIDERS: PCP Family Medicine; Visit Provider Internal Medicine Cardiovascular Disease | DX: R06.02 Shortness of breath (principal); I10 Essential (primary) hypertension | CPT/HCPCS: 36415; 80048; 83880; 99214 ==

== ENCOUNTER → 2022-12-13 14:58 | Outpatient (BNVA) | payer MEDICARE, MEDICAID, SELFPAY | PROVIDERS: PCP Family Medicine; Visit Provider Surgery | DX: Z09 Encounter for follow-up examination after completed treatment for conditions other than malignant neoplasm (principal) | CPT/HCPCS: 99213 ==

== ENCOUNTER 2022-12-18 10:51 | Oncology outpatient (recurring) (ONCR) | payer MEDICARE, MEDICAID, SELFPAY | END 2022-12-19 23:59 | disposition home or self-care (01) | PROVIDERS: PCP Family Medicine; Visit Provider Internal Medicine Medical Oncology | DX: C50.812 Malignant neoplasm of overlapping sites of left female breast (principal); Z80.3 Family history of malignant neoplasm of breast; Z79.899 Other long term (current) drug therapy | CPT/HCPCS: 99204; 99214 ==

== ENCOUNTER 2022-12-25 11:59 | Outpatient (CLI) | payer MEDICARE, MEDICAID, SELFPAY ==
--- NOTE | 2022-12-25 12:30 | USCV_ITS ---
Janet Calvillo Age: 82 Gender: F : 1940 Exam Date: 12/25/2022 12:34 Ordering Phys: Ryann Boo MD ([email or web address]) Technologist: DEMETRIA Exam Location: [facility] [place] Indication: AORTIC STENOSIS AND SHORTNESS OF BREATH BP: 124 / 62 HR: 72 Rhythm: Sinus Technical Quality: Adequate MEASUREMENTS (Male / Female) Normal Values 2D ECHO LVOT Diameter 2.0 cm LV Ejection Fraction MOD 2C 63.7 % LV Ejection Fraction 2C AL 67.6 % LA Diameter 3.0 cm LA Width 2.6 cm LA Height 4.4 cm RA Width 2.7 cm RA Height 3.6 cm Aorta at Sinotubular Diameter 2.8 cm IVC Diameter 1.3 cm M-MODE Aortic Annulus Diameter 2.7 cm LA Ao Ratio MM 1.0 MV E Point Septal Separation 0.5 cm DOPPLER AV Peak Velocity 386.5 cm/s LVOT Peak Velocity 122.0 cm/s AV Area Cont Eq vti 1.0 cm squared AV Area Cont Eq pk 1.0 cm squared MV Peak Velocity 123.0 cm/s MV Area PHT 2.2 cm squared Mitral E to A Ratio 0.8 MV E' Velocity 49.5 cm/s Mitral E to MV E' Ratio 9.6 Mitral E to LV E' Lateral Ratio 9.7 Mitral E to LV E' Septal Ratio 9.5 TR Peak Velocity 168.1 cm/s TR Peak Gradient 11.3 mmHg TR Mean Velocity 233.2 cm/s TR Mean Gradient 22.6 mmHg TR Velocity Time Integral 90.4 cm Right Atrial Pressure 3.0 mmHg Pulmonary Artery Systolic Pressu 14.3 mmHg PV Peak Velocity 113.0 cm/s RV Acceleration Time 0.1 s RV Ejection Time 0.3 s RV AcT/ET 0.3 FINDINGS Left Ventricle Normal left ventricular size and systolic function, EF 66 %. No regional wall motion abnormalities. Grade I/IV diastolic dysfunction (abnormal relaxation filling pattern), normal to mildly elevated filling pressures. Mild left ventricular hypertrophy. Right Ventricle The right ventricle is normal in size and function. Right Atrium The right atrium is normal in size. Left Atrium The left atrium is normal in size. Mitral Valve Trace mitral valve regurgitation. Aortic Valve Moderate aortic valve calcification. Mild aortic valve regurgitation. Moderately severe aortic valve stenosis with a peak velocity of 3.86 m/s, peak gradient of 61 mmHg and a mean gradient of 35 mmHg. Calculated aortic valve area 1.02 cm squared. Tricuspid Valve Trace tricuspid valve regurgitation. Pulmonic Valve Structurally normal pulmonic valve without significant stenosis. There is no pulmonic regurgitation. Pericardium Normal pericardium without effusion. Aorta Mild to moderate diffuse plaque in descending aorta IVC The inferior vena cava appears normal. CONCLUSIONS Moderately severe aortic valve stenosis with a peak velocity of 3.86 m/s, peak gradient of 61 mmHg and a mean gradient of 35 mmHg. Calculated aortic valve area 1.02 cm squared. Normal left ventricular size and systolic function, EF 66 %. No regional wall motion abnormalities. Grade I/IV diastolic dysfunction (abnormal relaxation filling pattern), normal to mildly elevated filling pressures. Mild left ventricular hypertrophy. Trace mitral valve regurgitation. Moderate aortic valve calcification. Trace tricuspid valve regurgitation. Estimated pulmonary artery peak systolic pressure within normal limits There is no pericardial effusion. Compared to the study from 11/29/2021, there is some worsening of the aortic valve stenosis Dr Ryann Boo MD [facility] (Electronically Signed) Final Date: 26 December 2022 09:41 S
== END 2022-12-25 12:00 | disposition home or self-care (01) ==
PROVIDERS: PCP Family Medicine; Visit Provider Internal Medicine Cardiovascular Disease
DX: I35.0 Nonrheumatic aortic (valve) stenosis (principal); R06.09 Other forms of dyspnea
CPT/HCPCS: 93306

== ENCOUNTER → 2022-12-27 10:54 | Outpatient (BNVA) | payer MEDICARE, MEDICAID, SELFPAY | PROVIDERS: PCP Family Medicine; Visit Provider Surgery | DX: Z95.828 Presence of other vascular implants and grafts (principal) | CPT/HCPCS: 99213 ==

== ENCOUNTER 2023-01-01 09:58 | Day surgery (SDC) | payer MEDICARE, MEDICAID, SELFPAY ==
[2022-12-31 13:33] VITALS: BMI 40.3
[2023-01-01] VITALS (7 sets, daily range): BP systolic 129–161; BP diastolic 63–83; PULSE 73–80; RESP 16–20; TEMP 36.1–36.7; O2SAT 94–98
--- NOTE | 2023-01-01 09:34 | W.PM.OPSUD ---
Surgery/Procedure H&P Update DATE OF PROCEDURE: January 01, 2023 DATE H&P PERFORMED: 12/27/22 H&P UPDATE INFORMATION: I have reviewed H&P completed within last 30 days, I have examined patient prior to procedure, No changes to prior documentation and H&P is in [facility] EMR on date indicated PLANNED PROCEDURE: Operation Date: 01/01/23 12:35 Proposed Procedures p [id number] port placement C50.919(Not Applicable) - Michi Mayes MD
--- NOTE | 2023-01-01 11:44 | SC_ITS ---
WS: [id number] C-ARM RADIOGRAPHS CHEST; 3 IMAGES HISTORY: Port-A-Cath placement COMPARISON: None available. Intraoperative imaging during Port-A-Cath placement. Port-A-Cath overlies the RIGHT upper chest. IMPRESSION: Intraoperative imaging during Port-A-Cath placement.
[2023-01-01] MEDS: sodium chloride 0.9% 1,000 ML 30 ML IV (12:35)
--- NOTE | 2023-01-01 13:38 | ANES.PREANE2 ---
Pre-Anesthetic Assessment Height/Weight: Height 1.68 m Weight 113.398 kg Temp Pulse Resp BP Pulse Ox O2 Del Method 97.1 F L 75 16 161/83 95 Room Air 01/01/23 11:59 01/01/23 11:59 01/01/23 11:59 01/01/23 11:59 01/01/23 11:59 01/01/23 12:09 Operation Date: 01/01/23 12:35 Proposed Procedures p [id number] port placement C50.919(Not Applicable) - Michi Mayes MD Familial anesthetic complications: none Was Beta Sixto taken within 24 hours: N/A Was Clonidine taken within 24 hours: N/A Last intake: Intake Last Liquid Date 12/31/22 Last Liquid Time 18:00 Last Solid Date 12/31/22 Last Solid Time 18:00 Social No alcohol and No tobacco Exam alert, oriented x 3, clear to auscultation bilaterally and regular rate & rhythm Airway Submandibular: within normal limits Cervical ROM: within normal limits Mallampati: Class II Dentition: chipped CV/HEM Deep Vein Thrombosis (PE), Hypertension and Murmur ( mod/sev) CONCLUSIONS ?Moderately severe aortic valve stenosis with a peak velocity of ?3.86 m/s, peak gradient of 61 mmHg and a mean gradient of 35 ?mmHg.? Calculated aortic valve area 1.02 cm squared. ?Normal left ventricular size and systolic function, EF 66 %. No ?regional wall motion abnormalities. Grade I/IV diastolic ?dysfunction (abnormal relaxation filling pattern), normal to ?mildly elevated filling pressures. Mild left ventricular ?hypertrophy. ?Trace mitral valve regurgitation. ?Moderate aortic valve calcification. ?Trace tricuspid valve regurgitation. ?Estimated pulmonary artery peak systolic pressure within normal ?limits ?There is no pericardial effusion. ?Compared to the study from 11/29/2021, there is some worsening of ?the aortic valve stenosis ?Dr Ryann Boo MD [facility] ?(Electronically Signed) ?Final Date:? ? ? 26 December 2022 Metabolic Morbid Obesity and Thyroid Disease Anesthetic Plan ASA status: 3 Anesthesia: MAC Medications/Allergies Home Medications Medication Instructions Recorded Confirmed Last Taken Type calcium carb and lactate 200 1 tab PO QAM 12/28/19 12/31/22 12/31/22 History mg-vitamin D3 6.25 mcg (250 unit) tablet diphenhydramine HCl 25 mg capsule 25 mg PO TID PRN Itching 12/28/19 12/31/22 12/24/22 History (Benadryl) fluoxetine 20 mg capsule (Prozac) 20 mg PO DAILY 12/28/19 12/31/22 12/31/22 History furosemide 20 mg tablet (Lasix) 20 mg PO DAILY 12/28/19 12/31/22 12/31/22 History levothyroxine 100 mcg capsule 100 mcg PO DAILY 12/28/19 12/31/22 12/31/22 History meclizine 25 mg tablet 25 mg PO TID 12/28/19 12/31/22 12/31/22 History multivitamin 1 tab PO DAILY 12/28/19 12/31/22 12/31/22 History potassium chloride 10 mEq 10 meq PO DAILY 12/28/19 12/31/22 12/31/22 History capsule,extended release red yeast rice 600 mg capsule 600 mg PO BID 12/28/19 12/31/22 12/31/22 History tolterodine 4 mg capsule,extended 4 mg PO DAILY 12/28/19 12/31/22 12/31/22 History release 24 hr vitamin B complex (B 1 tab PO DAILY 12/28/19 12/31/22 12/31/22 History Complex-Vitamin B12 tablet) denosumab 60 mg/mL subcutaneous 60 mg SUBCUT Q6M 06/26/20 12/31/22 12/04/22 History syringe (Prolia) cyanocobalamin (vitamin B-12) 2,500 mcg PO DAILY 07/19/21 12/31/22 12/31/22 History 2,500 mcg tablet vitamin E mixed 1,000 unit capsule 4,000 unit PO DAILY 07/19/21 12/31/22 12/31/22 History albuterol sulfate 90 mcg/actuation 1 inh inhalation QID PRN shortness 12/05/21 12/31/22 12/31/22 Rx aerosol inhaler (Ventolin HFA) of breath or wheezing #8.5 grams budesonide-formoterol HFA 80 2 puff inhalation BID #10.2 grams 08/07/22 12/31/22 12/31/22 Rx mcg-4.5 mcg/actuation aerosol inhaler (Symbicort) warfarin 5 mg tablet 10 mg PO DAILY 11/20/22 12/31/22 12/24/22 History lorazepam 1 mg tablet 0.5 - 1 mg PO Q6H PRN Severe 12/31/22 Unknown Rx Nausea #30 tabs lorazepam 1 mg tablet 0.5 - 1 mg PO Q6H PRN Severe 12/31/22 12/31/22 12/31/22 Rx Nausea #30 tabs ondansetron HCl 4 mg tablet 4 mg PO QID PRN Nausea/vomiting 12/31/22 12/31/22 Unknown Rx #30 tabs prochlorperazine maleate 10 mg 10 mg PO Q4H PRN Mild Nausea #30 12/31/22 Unknown Rx tablet (Compazine) tabs Allergies Allergy/AdvReac Type Severity Reaction Status Date / Time adhesive Allergy Unknown unknown Verified 12/30/22 10:08 ciprofloxacin [From Cipro] Allergy Unknown unknown Verified 12/30/22 10:08 erythromycin base Allergy Unknown unknown Verified 12/30/22 10:08 gabapentin [From Neurontin] Allergy Unknown unknown Verified 12/30/22 10:08 hydrocodone [From Vicodin] Allergy Unknown unknown Verified 12/30/22 10:08 Influenza Virus Vaccines Allergy Unknown unknown Verified 12/30/22 10:08 tetanus toxoid, adsorbed Allergy Unknown unknown Verified 12/30/22 10:08 tramadol [From Ultram] Allergy Unknown unknown Verified 12/30/22 10:08 aspirin Allergy stomach Verified 12/30/22 10:08 pain, unbearable egg Allergy unknown Verified 12/30/22 10:08 NSAIDS (Non-Steroidal Allergy heartburn, Verified 12/30/22 10:08 Anti-Inflamma stomach pain Tetanus Vaccines and Toxoid Allergy unknown Verified 12/30/22 10:08 Current Medications Generic Name Dose Route Start Last Admin Trade Name Freq PRN Reason Stop Dose Admin Sodium Chloride 1,000 mls @ 30 mls/hr 01/01/23 11:45 01/01/23 12:35 Sodium Chloride 0.9% IV 01/02/23 11:44 30 mls/hr .Q24H GREGORIO Administration PFSH Anesthesia Medical History (Updated 12/30/22 @ 16:28 by Piotr Oro MD) Aortic stenosis Arthritis Asthma Breast cancer DVT (deep venous thrombosis) Gross hematuria Hydronephrosis of right kidney Hypertension Obesity Osteoporosis Pulmonary embolism Surgical History (Updated 12/30/22 @ 16:23 by Piotr Oro MD) H/O: hysterectomy Hx of cataract surgery Hx of cholecystectomy Hx of colonoscopy Age 65 Hx of cystoscopy Hx of tubal ligation S/P tonsillectomy Family History Father , AT 92 CHF (congestive heart failure) Mother , AT 100 of unknown cause Other CAD (coronary artery disease) Cancer Diabetes Hyperlipidemia Hypertension Stroke Denies family history of Psychiatric illness Chronic kidney disease (CKD) Suicide Family history of premature coronary artery disease Lung disease Social History Smoking and tobacco status: never smoked Alcohol intake: never Substance/Drug Use: never Marital status: / Current occupational status: retired and disabled Data Anesthesia Cardiac Studies: Echocardiogram 12/25/22 Echocardiogram Ultrasound 10/06/20
[2023-01-01] MEDS: ceFAZolin 2,000 MG in sodium chloride 0.9% (plus) 50 ML 100 MG IV (14:35)
[2023-01-01] MEDS: heparin, porcine 1,000 unit/mL INJ 10 mL 10000 UNIT INJECTION (15:20)
[2023-01-01] MEDS: lidocaine-epi 1% 20 mL INJ INJECTION (15:20)
[2023-01-01] MEDS: BUPivacaine 0.25% INJ 10 mL 20 ML INJECTION (15:22)
--- NOTE | 2023-01-01 15:38 | P.OP_ITS ---
Operative Report Date of procedure: January 01, 2023 Pre-op diagnosis: Breast cancer Post-op diagnosis: same Procedure done: Inserion of Port-a-cath Implants: Bard Port a cath Surgeon: Michi Mayes MD Estimated blood loss: 5cc Complications: none Findings: normal vascular anatomy Brief History: 82-year-old female with breast cancer who presented for placement of Port-A-Cath to initiate chemotherapy. All the risk and benefits were discussed and accepted by the patient as documented in my clinic note Procedure: Patient was brought into the OR. The patient was placed in the supine position, moderate analgesia and sedation was given. The right neck was prepped and draped in the usual sterile fashion as well as the right upper chest. A timeout was conducted. The right IJ was identified with ultrasound lidocaine was admini stered around the area of catheter insertion. I then cannulated the right IJ under direct ultrasound guidance, visualizing the needle tip entering the vein wall. I wire was advanced over the needle, needle was removed and position of the wire was confirmed with ultrasound and with fluoroscopy. Additional local anesthesia was placed in the right upper chest and in the area where the toenail will be created. A 2.5 cm incision was made in the right upper chest to accommodate the Port-A-Cath, 0.5 cm incision was made in the neck at the area of the wire insertion. The chest wound was deepened to subcutaneous tissue and a pocket was created, hemostasis was achieved. Hemostat was used to create a tunnel from the area of the Port-A-Cath placement to the neck. I then placed a Port-A-Cath in the pocket fixated with #3-0 Vicryl and tunneled the catheter to the neck using the tunneler kit. The catheter was measure under fluoroscopy guidance and then cut. Introducer with a pillow sheath was advanced over the wire under direct fluoroscopic guidance, after insertion the wire and the inner introducer was removed. The catheter was then advanced through the peel-off sheath. The peel-off sheath was then removed leaving the catheter in place. Fluoroscopy showed good position of the catheter and adequate place of the catheter tip. The port was then verified for flushing and aspirating blood. The port was then hep-locked. The wounds were closed in layers using 3-0 Vicryl for the subcutaneous and 4-0 Monocryl for the skin. Dermabond was applied. At the end of the procedure all counts were correct, patient tolerated well the procedure and was transferred to the PACU in stable condition.
--- NOTE | 2023-01-01 16:42 | ANE.PACU2 ---
Inpatient post-anesthesia follow up: Airway intact: Yes Vital signs: Temperature 97.8 F Pulse Rate 75 Respiratory Rate 16 Blood Pressure 137/64 Pulse Oximetry 94 Oxygen Delivery Me thod Room Air Oxygen Flow Rate Fraction of Inspir ed Oxygen Hydration adequate: Yes Nausea and vomiting: No Pain level: 1 Mental status: Baseline
== END 2023-01-01 17:10 | disposition home or self-care (01) ==
PROVIDERS: PCP Family Medicine; Visit Provider Surgery
PROC: (CPT 36561; principal; 2023-01-01 12:25)
DX: C50.919 Malignant neoplasm of unspecified site of unspecified female breast (principal); Z86.718 Personal history of other venous thrombosis and embolism; I10 Essential (primary) hypertension; Z79.01 Long term (current) use of anticoagulants
CPT/HCPCS: 36561; 76000; 77001; C1788; J0690; J1644; J2250; J2704; J3490; J7030

== ENCOUNTER 2023-01-04 05:44 | Outpatient (CLI) | payer MEDICARE, MEDICAID, SELFPAY ==
--- NOTE | 2023-01-04 12:30 | PETR_ITS ---
PROCEDURE INFORMATION: Exam: PET/CT Skull Base to Mid-thigh Exam date and time: 01/04/2023 12:57 PM Age: 82 years old Clinical indication: Condition or disease; Primary cancer: Breast cancer, lung cancer; Follow-up oncological assessment; Additional info: Staging. History of ultrasound guided left breast biopsy 11/13/2022. LABS AND CLINICAL REPORTS: Glucose: 100 mg/dl Treatment strategy for malignancy (PET staging): Restaging (PS) TECHNIQUE: Imaging protocol: Following at least four-hour fasting and following the injection of radiopharmaceutical, low dose CT images were obtained. Then, PET images were obtained. Attenuation corrected images were constructed using the CT scan. Fused images of PET and CT were reviewed. The standardized uptake values (SUV) reported below are maximum values within a region of interest, expressed in gm/ml. Exam includes orbital meatal line to mid-thigh. Radiopharmaceutical: 12.91 mCi F-18 FDG (Fluorodeoxyglucose), IV. Time of imaging post radiopharmaceutical administration: 1 hour Injection site: Left antecubital COMPARISON: CT chest con [id number] 10/18/2021 12:03 PM, CT abdomen and pelvis 09/04/2021 FINDINGS: Tubes, catheters and devices: A right internal jugular central venous port catheter terminates in the right atrium. Brain: Visualized brain has normal physiologic uptake. Pharynx: No abnormal uptake. Larynx: No abnormal uptake. Lungs, pleura and trachea: No abnormal uptake. Heart: Normal physiologic uptake. Mediastinal space: No abnormal uptake. Diaphragm: No abnormal uptake. Small hiatal hernia. Liver: No abnormal uptake. Gallbladder and bile ducts: No abnormal uptake. Cholecystectomy clips are present. Pancreas: No abnormal uptake. Spleen: No abnormal uptake. Adrenal glands: No abnormal uptake. Kidneys and ureters: Physiologic appearing uptake. There is similar mild prominence of the right renal pelvis. No discrete mass in the region of the right pelvis appears to be present although assessment is limited without intravenous contrast. Stomach and bowel: No abnormal uptake. Vasculature: No abnormal uptake. There are atherosclerotic calcifications throughout the abdomen and pelvis with no evidence of aneurysm. Lymph nodes: No abnormal uptake. No lymphadenopathy in the head, neck, chest, abdomen, pelvis, and extremities. Bones/joints: No abnormal uptake in the visualized axial and appendicular skeleton. [id number] diffuse degenerative vertebral body spondylosis is present. Mild curvature of the lumbar spine convex to the right is present. Soft tissues: In the superolateral left breast a spiculated soft tissue density mass measures 3.7 x [address] series 3, image 68 and contains a biopsy clip. Uptake within this lesion demonstrates an SUV max 11.2 on PET series 4, image 68. METRICS: Mediastinal blood pool: SUV max 2.5 PET[facility] INITIAL [id number] IMPRESSION: 1. A left breast mass is radiotracer avid (SUV max 11.2) compatible with known malignancy. 2. Similar mild prominence of the right renal pelvis. A previously described possible filling defect in the right renal pelvis/right ureteral pelvic junction is not well delineated on this noncontrast study. No definite neoplastic involvement in this location. 3. Additional nonurgent findings as detailed above.
== END 2023-01-04 05:45 | disposition home or self-care (01) ==
LOC: RAD 01-06 05:44
PROVIDERS: PCP Family Medicine; Visit Provider Internal Medicine Medical Oncology
DX: C50.412 Malignant neoplasm of upper-outer quadrant of left female breast (principal); R91.8 Other nonspecific abnormal finding of lung field
CPT/HCPCS: 78815; A9552

== ENCOUNTER 2023-01-08 10:00 | Oncology outpatient (recurring) (ONCR) | payer MEDICARE, MEDICAID, SELFPAY ==
[2023-01-08 10:11] VITALS: BP 125/77; PULSE 76; RESP 16; TEMP 36.4; O2SAT 95
[2023-01-08 10:37] LABS: Basophils # 0.1 10^3/uL (0.0-0.1); Basophils % 1.4 %; Eosinophils # 0.4 10^3/uL (0.0-0.8); Eosinophils % 6.5 %; Hematocrit 40.5 % (36-47); Lymphocytes # 0.9 10^3/uL (0.8-4.8); Mean Corpuscular HGB Conc 32.3 g/dL (30-55); Mean Corpuscular Hemoglobin 30.3 pg (27-33); Mean Corpuscular Volume 93.8 fl (85-98); Mean Platelet Volume 11.2 fL (7.4-10.4); Monocytes # 0.5 10^3/uL (0.2-0.9); Monocytes % 8.7 %; Neutrophils # 3.66 10^3/uL (1.8-7.7); Nucleated Red Blood Cells % 0 %; Platelet Count 195 10^3/cmm (157-399); Red Blood Count 4.32 10^6/uL (3.85-5.65); Red Cell Distribution Width 13.7 % (12.1-15.1); White Blood Count 5.54 10^3/uL (3.29-11.43)
[2023-01-08 11:09] LABS: Alanine Aminotransferase 11 U/L (0-33); Albumin Level 3.6 g/dL (3.5-5.2); Alkaline Phosphatase 74 U/L (35-105); Anion Gap 12.4 (5-19); Aspartate Amino Transferase 18 U/L (0-32); Blood Urea Nitrogen 18 mg/dL (8-23); CA 15-3 30.8 U/mL (0-25); Calcium 9.2 mg/dL (8.5-10.5); Carbon Dioxide 25 mmol/L (22-29); Chloride 106 mmol/L (98-107); Globulin 2.9 g/dL (1.3-4.6); Glucose 111 mg/dL (65-115); Osmolality Calculated 291 mOsm/kg (285-295); Potassium 4.4 mmol/L (3.5-5.1); Sodium 139 mmol/L (136-145); Thyroid Stimulating Hormone 5.01 uIU/mL (0.27-4.20); Total Bilirubin 0.3 mg/dL (0.15-1.2); Total Protein 6.5 g/dL (6.6-8.7)
[2023-01-08 11:29] LABS: Hepatitis A Antibody IgM Non-Reactive (Nonreactive); Hepatitis B Core AB, Total Non-Reactive (Nonreactive); Hepatitis B Surface Antigen Non-Reactive (Nonreactive); Hepatitis C Virus Antibody Non-Reactive (Nonreactive)
[2023-01-08 11:30] LABS: Hepatitis B Surface AB < 3.5 (11.5-1000)
[2023-01-08 11:31] LABS: Cortisol Random 8.36 ug/dL (2.47-19.5); Immunoglobulin IGG 893 mg/dL (700-1600)
[2023-01-08 11:53] LABS: Miscellaneous Test See Scanned Lab Rpt
[2023-01-08] MEDS: acetaminophen 325 mg Tablet 650 MG PO (13:02)
[2023-01-08] MEDS: sodium chloride 0.9% 250 ML 75 ML IV (13:02)
[2023-01-08] MEDS: diphenhydrAMINE 50 mg/mL SDV 1mL 25 MG IVP (13:03)
[2023-01-08] MEDS: famotidine 20 mg/2 mL INJ IVP (13:05)
[2023-01-08] MEDS: dexamethasone 20 MG in sodium chloride 0.9% 50 ML 188 MG IV (13:07)
[2023-01-08] MEDS: palonosetron 0.25 mg/5 mL SDV IVP (13:07)
[2023-01-08] MEDS: pembrolizumab 200 MG in sodium chloride 0.9% 250 ML 516 MG IV (13:38)
[2023-01-08] MEDS: CARBOplatin 170 MG in sodium chloride 0.9% 500 ML 517 MG IV (15:35)
[2023-01-08 17:04] VITALS: BP 120/59; PULSE 75; RESP 17; TEMP 36.8; O2SAT 93
== END 2023-01-08 23:59 | disposition home or self-care (01) ==
PROVIDERS: Internal Medicine Medical Oncology; PCP Family Medicine; Visit Provider Internal Medicine Medical Oncology
DX: Z51.11 Encounter for antineoplastic chemotherapy (principal); C50.412 Malignant neoplasm of upper-outer quadrant of left female breast; Z17.1 Estrogen receptor negative status [ER-]; R53.0 Neoplastic (malignant) related fatigue; R60.0 Localized edema
CPT/HCPCS: 80053; 82533; 82784; 84443; 85025; 86300; 86705; 86706; 86709; 86803; 87340; 96367; 96375; 96413; 96417; 99215; J1100; J1200; J1642; J2469; J3490; J7040; J7050; J9045; J9267; J9271

== ENCOUNTER → 2023-01-13 14:27 | Outpatient (BNVA) | payer MEDICARE, MEDICAID, SELFPAY | PROVIDERS: PCP Family Medicine; Visit Provider Surgery | DX: C50.412 Malignant neoplasm of upper-outer quadrant of left female breast (principal); Z71.89 Other specified counseling | CPT/HCPCS: 99213 ==

== ENCOUNTER 2023-01-15 08:30 | Oncology outpatient (recurring) (ONCR) | payer MEDICARE, MEDICAID, SELFPAY ==
[2023-01-15 09:14] VITALS: BP 107/66; PULSE 81; RESP 19; TEMP 37; O2SAT 98; BMI 40.2
[2023-01-15 09:36] LABS: Basophils # 0.1 10^3/uL (0.0-0.1); Basophils % 2.4 %; Eosinophils # 0.2 10^3/uL (0.0-0.8); Eosinophils % 6.2 %; Hematocrit 37.6 % (36-47); Lymphocytes # 0.7 10^3/uL (0.8-4.8); Lymphocytes % 19.6 %; Mean Corpuscular HGB Conc 32.4 g/dL (30-55); Mean Corpuscular Volume 92.6 fl (85-98); Mean Platelet Volume 11.2 fL (7.4-10.4); Monocytes # 0.2 10^3/uL (0.2-0.9); Monocytes % 4.8 %; Neutrophils # 2.47 10^3/uL (1.8-7.7); Neutrophils % 66.5 %; Nucleated Red Blood Cells % 0 %; Platelet Count 204 10^3/cmm (157-399); Red Blood Count 4.06 10^6/uL (3.85-5.65); Red Cell Distribution Width 13.5 % (12.1-15.1); White Blood Count 3.72 10^3/uL (3.29-11.43)
[2023-01-15 09:57] LABS: Alanine Aminotransferase 16 U/L (0-33); Albumin Level 3.7 g/dL (3.5-5.2); Alkaline Phosphatase 73 U/L (35-105); Anion Gap 12.5 (5-19); Aspartate Amino Transferase 17 U/L (0-32); Blood Urea Nitrogen 22 mg/dL (8-23); Calcium 9.7 mg/dL (8.5-10.5); Carbon Dioxide 27 mmol/L (22-29); Chloride 104 mmol/L (98-107); Globulin 2.6 g/dL (1.3-4.6); Glucose 112 mg/dL (65-115); Osmolality Calculated 292 mOsm/kg (285-295); Potassium 4.5 mmol/L (3.5-5.1); Sodium 139 mmol/L (136-145); Total Bilirubin 0.3 mg/dL (0.15-1.2); Total Protein 6.3 g/dL (6.6-8.7)
[2023-01-15] MEDS: sodium chloride 0.9% 250 ML 75 ML IV (10:44)
[2023-01-15] MEDS: palonosetron 0.25 mg/5 mL SDV IVP (10:47)
[2023-01-15] MEDS: diphenhydrAMINE 50 mg/mL SDV 1mL 25 MG IVP (10:49)
[2023-01-15] MEDS: acetaminophen 325 mg Tablet 650 MG PO (10:50)
[2023-01-15] MEDS: famotidine 20 mg/2 mL INJ IVP (10:53)
[2023-01-15] MEDS: dexamethasone 20 MG in sodium chloride 0.9% 50 ML 188 MG IV (10:57)
[2023-01-15] MEDS: levalbuterol 0.63 mg/3 mL Neb INHALATION (11:32)
[2023-01-15] MEDS: CARBOplatin 170 MG in sodium chloride 0.9% 500 ML 517 MG IV (13:24)
[2023-01-15 16:22] VITALS: BP 110/75; PULSE 74; RESP 18; TEMP 36.9; O2SAT 94
== END 2023-01-18 23:59 | disposition home or self-care (01) ==
PROVIDERS: PCP Family Medicine; Visit Provider Internal Medicine Medical Oncology
DX: C50.812 Malignant neoplasm of overlapping sites of left female breast (principal); Z17.0 Estrogen receptor positive status [ER+]; Z79.899 Other long term (current) drug therapy; Z51.11 Encounter for antineoplastic chemotherapy
CPT/HCPCS: 80053; 85025; 96367; 96375; 96413; 96417; 99214; J1100; J1200; J1642; J2469; J3490; J7040; J7050; J7614; J9045; J9267

== ENCOUNTER 2023-01-29 09:14 | Oncology outpatient (recurring) (ONCR) | payer MEDICARE, MEDICAID, SELFPAY ==
[2023-01-22 07:36] VITALS: BP 120/78; PULSE 75; RESP 16; TEMP 35.9; O2SAT 97
[2023-01-22 07:55] LABS: Basophils # 0.1 10^3/uL (0.0-0.1); Basophils % 2.7 %; Eosinophils # 0.1 10^3/uL (0.0-0.8); Eosinophils % 3.2 %; Hematocrit 36.3 % (36-47); Lymphocytes # 0.6 10^3/uL (0.8-4.8); Lymphocytes % 28.4 %; Mean Corpuscular Hemoglobin 30.2 pg (27-33); Mean Corpuscular Volume 94.5 fl (85-98); Mean Platelet Volume 10.9 fL (7.4-10.4); Monocytes # 0.2 10^3/uL (0.2-0.9); Monocytes % 6.8 %; Neutrophils % 58.4 %; Nucleated Red Blood Cells % 0 %; Platelet Count 230 10^3/cmm (157-399); Red Blood Count 3.84 10^6/uL (3.85-5.65); Red Cell Distribution Width 13.5 % (12.1-15.1); White Blood Count 2.22 10^3/uL (3.29-11.43)
[2023-01-22 08:15] LABS: Alanine Aminotransferase 23 U/L (0-33); Albumin Level 3.5 g/dL (3.5-5.2); Alkaline Phosphatase 62 U/L (35-105); Anion Gap 11.5 (5-19); Aspartate Amino Transferase 23 U/L (0-32); Blood Urea Nitrogen 19 mg/dL (8-23); Calcium 8.9 mg/dL (8.5-10.5); Carbon Dioxide 25 mmol/L (22-29); Chloride 110 mmol/L (98-107); Globulin 2.5 g/dL (1.3-4.6); Glucose 96 mg/dL (65-115); Osmolality Calculated 296 mOsm/kg (285-295); Potassium 4.5 mmol/L (3.5-5.1); Sodium 142 mmol/L (136-145); Total Bilirubin 0.2 mg/dL (0.15-1.2)
[2023-01-29 09:34] VITALS: BP 121/72; PULSE 77; RESP 16; TEMP 36.2; O2SAT 97
[2023-01-29 10:04] LABS: Basophils # 0.1 10^3/uL (0.0-0.1); Basophils % 2.2 %; Hematocrit 38.7 % (36-47); Lymphocytes # 0.8 10^3/uL (0.8-4.8); Lymphocytes % 18.5 %; Mean Corpuscular HGB Conc 32.3 g/dL (30-55); Mean Corpuscular Hemoglobin 30.7 pg (27-33); Mean Corpuscular Volume 95.1 fl (85-98); Mean Platelet Volume 10.3 fL (7.4-10.4); Monocytes # 0.5 10^3/uL (0.2-0.9); Monocytes % 12.3 %; Neutrophils # 2.66 10^3/uL (1.8-7.7); Neutrophils % 65.5 %; Nucleated Red Blood Cells % 0 %; Platelet Count 247 10^3/cmm (157-399); Red Blood Count 4.07 10^6/uL (3.85-5.65); White Blood Count 4.06 10^3/uL (3.29-11.43)
[2023-01-29 10:37] LABS: Alanine Aminotransferase 14 U/L (0-33); Albumin Level 3.8 g/dL (3.5-5.2); Alkaline Phosphatase 75 U/L (35-105); Anion Gap 12.5 (5-19); Aspartate Amino Transferase 16 U/L (0-32); Blood Urea Nitrogen 18 mg/dL (8-23); Calcium 9.3 mg/dL (8.5-10.5); Carbon Dioxide 25 mmol/L (22-29); Chloride 107 mmol/L (98-107); Globulin 2.7 g/dL (1.3-4.6); Glucose 111 mg/dL (65-115); Osmolality Calculated 293 mOsm/kg (285-295); Potassium 4.5 mmol/L (3.5-5.1); Sodium 140 mmol/L (136-145); Thyroid Stimulating Hormone 2.88 uIU/mL (0.27-4.20); Total Bilirubin 0.2 mg/dL (0.15-1.2); Total Protein 6.5 g/dL (6.6-8.7)
[2023-01-29] MEDS: sodium chloride 0.9% 250 ML 75 ML IV (11:10)
[2023-01-29] MEDS: acetaminophen 325 mg Tablet 650 MG PO (11:10)
[2023-01-29] MEDS: palonosetron 0.25 mg/5 mL SDV IVP (11:16)
[2023-01-29] MEDS: famotidine 20 mg/2 mL INJ IVP (11:20)
[2023-01-29] MEDS: diphenhydrAMINE 50 mg/mL SDV 1mL 25 MG IVP (11:22)
[2023-01-29] MEDS: dexamethasone 20 MG in sodium chloride 0.9% 50 ML 188 MG IV (11:27)
[2023-01-29 11:45] LABS: INR 2.52 (0.8-1.2)
[2023-01-29] MEDS: pembrolizumab 200 MG in sodium chloride 0.9% 250 ML 516 MG IV (11:52)
[2023-01-29] MEDS: CARBOplatin 170 MG in sodium chloride 0.9% 500 ML 517 MG IV (13:50)
[2023-01-29 15:30] VITALS: BP 122/73; PULSE 79; RESP 17; TEMP 35.6; O2SAT 96
== END 2023-01-29 23:59 | disposition home or self-care (01) ==
PROVIDERS: PCP Family Medicine; Visit Provider Internal Medicine Medical Oncology
DX: C50.812 Malignant neoplasm of overlapping sites of left female breast (principal); Z51.11 Encounter for antineoplastic chemotherapy; R06.02 Shortness of breath; Z17.1 Estrogen receptor negative status [ER-]
CPT/HCPCS: 80053; 84443; 85025; 85610; 96367; 96374; 96375; 96413; 96417; 99214; 99215; J1100; J1200; J1642; J2469; J3490; J7040; J7050; J9045; J9267; J9271

== ENCOUNTER 2023-02-12 08:00 | Oncology outpatient (recurring) (ONCR) | payer MEDICARE, MEDICAID, SELFPAY ==
[2023-02-05 09:30] VITALS: BP 113/67; PULSE 81; RESP 17; TEMP 36.4; O2SAT 97; BMI 40.8
[2023-02-05 09:53] LABS: Basophils # 0.1 10^3/uL (0.0-0.1); Basophils % 1.7 %; Eosinophils % 0.5 %; Hematocrit 37.9 % (36-47); Lymphocytes # 0.6 10^3/uL (0.8-4.8); Mean Corpuscular HGB Conc 32.2 g/dL (30-55); Mean Corpuscular Hemoglobin 30.7 pg (27-33); Mean Corpuscular Volume 95.5 fl (85-98); Mean Platelet Volume 10.3 fL (7.4-10.4); Monocytes # 0.2 10^3/uL (0.2-0.9); Monocytes % 3.3 %; Neutrophils # 5.39 10^3/uL (1.8-7.7); Neutrophils % 83.9 %; Nucleated Red Blood Cells % 0 %; Platelet Count 157 10^3/cmm (157-399); Red Blood Count 3.97 10^6/uL (3.85-5.65); Red Cell Distribution Width 13.9 % (12.1-15.1); White Blood Count 6.42 10^3/uL (3.29-11.43)
[2023-02-05 10:06] LABS: Alanine Aminotransferase 17 U/L (0-33); Albumin Level 3.9 g/dL (3.5-5.2); Alkaline Phosphatase 66 U/L (35-105); Anion Gap 11.7 (5-19); Aspartate Amino Transferase 19 U/L (0-32); Blood Urea Nitrogen 29 mg/dL (8-23); Calcium 9.4 mg/dL (8.5-10.5); Carbon Dioxide 25 mmol/L (22-29); Chloride 106 mmol/L (98-107); Globulin 2.8 g/dL (1.3-4.6); Glucose 119 mg/dL (65-115); Osmolality Calculated 293 mOsm/kg (285-295); Potassium 4.7 mmol/L (3.5-5.1); Sodium 138 mmol/L (136-145); Total Bilirubin 0.3 mg/dL (0.15-1.2); Total Protein 6.7 g/dL (6.6-8.7)
[2023-02-05 10:10] LABS: INR 1.88 (0.8-1.2)
[2023-02-05] MEDS: sodium chloride 0.9% 250 ML 75 ML IV (10:58)
[2023-02-05] MEDS: diphenhydrAMINE 50 mg/mL SDV 1mL 25 MG IVP (11:00)
[2023-02-05] MEDS: famotidine 20 mg/2 mL INJ IVP (11:04)
[2023-02-05] MEDS: palonosetron 0.25 mg/5 mL SDV IVP (11:06)
[2023-02-05] MEDS: dexamethasone 20 MG in sodium chloride 0.9% 50 ML 188 MG IV (11:09)
[2023-02-05] MEDS: acetaminophen 325 mg Tablet 650 MG PO (11:10)
[2023-02-05] MEDS: CARBOplatin 170 MG in sodium chloride 0.9% 500 ML 517 MG IV (12:47)
[2023-02-05 13:59] VITALS: BP 126/81; PULSE 87; TEMP 36.7; O2SAT 94
[2023-02-12 07:59] VITALS: BP 118/60; PULSE 78; RESP 16; TEMP 37.1; O2SAT 99
[2023-02-12 08:12] LABS: Basophils % 1.5 %; Eosinophils % 1.5 %; Hematocrit 32.7 % (36-47); Lymphocytes # 0.8 10^3/uL (0.8-4.8); Lymphocytes % 28.6 %; Mean Corpuscular HGB Conc 32.4 g/dL (30-55); Mean Corpuscular Hemoglobin 30.8 pg (27-33); Mean Corpuscular Volume 95.1 fl (85-98); Mean Platelet Volume 9.8 fL (7.4-10.4); Monocytes # 0.2 10^3/uL (0.2-0.9); Monocytes % 5.9 %; Neutrophils # 1.71 10^3/uL (1.8-7.7); Neutrophils % 62.5 %; Nucleated Red Blood Cells % 0 %; Platelet Count 133 10^3/cmm (157-399); Red Blood Count 3.44 10^6/uL (3.85-5.65); White Blood Count 2.73 10^3/uL (3.29-11.43)
[2023-02-12 08:30] LABS: INR 1.83 (0.8-1.2)
[2023-02-12 08:37] LABS: Alanine Aminotransferase 16 U/L (0-33); Albumin Level 3.6 g/dL (3.5-5.2); Alkaline Phosphatase 55 U/L (35-105); Anion Gap 10.5 (5-19); Aspartate Amino Transferase 16 U/L (0-32); Blood Urea Nitrogen 25 mg/dL (8-23); Calcium 9.2 mg/dL (8.5-10.5); Carbon Dioxide 27 mmol/L (22-29); Chloride 106 mmol/L (98-107); Globulin 2.6 g/dL (1.3-4.6); Glucose 98 mg/dL (65-115); Osmolality Calculated 292 mOsm/kg (285-295); Potassium 4.5 mmol/L (3.5-5.1); Sodium 139 mmol/L (136-145); Total Bilirubin 0.3 mg/dL (0.15-1.2); Total Protein 6.2 g/dL (6.6-8.7)
[2023-02-12] MEDS: acetaminophen 325 mg Tablet 650 MG PO (10:11)
[2023-02-12] MEDS: famotidine 20 mg/2 mL INJ IVP (10:11)
[2023-02-12] MEDS: sodium chloride 0.9% 250 ML 75 ML IV (10:11)
[2023-02-12] MEDS: palonosetron 0.25 mg/5 mL SDV IVP (10:16)
[2023-02-12] MEDS: diphenhydrAMINE 50 mg/mL SDV 1mL 25 MG IVP (10:18)
[2023-02-12] MEDS: dexamethasone 20 MG in sodium chloride 0.9% 50 ML 188 MG IV (10:20)
[2023-02-12] MEDS: CARBOplatin 170 MG in sodium chloride 0.9% 500 ML 517 MG IV (12:03)
[2023-02-12 13:21] VITALS: BP 108/63; PULSE 86; RESP 17; TEMP 37.5; O2SAT 95
== END 2023-02-18 23:59 | disposition home or self-care (01) ==
PROVIDERS: PCP Family Medicine; Visit Provider Internal Medicine Medical Oncology
DX: C50.812 Malignant neoplasm of overlapping sites of left female breast (principal); Z79.899 Other long term (current) drug therapy; Z17.1 Estrogen receptor negative status [ER-]; R06.02 Shortness of breath; Z51.11 Encounter for antineoplastic chemotherapy
CPT/HCPCS: 80053; 85025; 85610; 96367; 96375; 96413; 96417; 99214; J1100; J1200; J1642; J2469; J3490; J7040; J7050; J9045; J9267

== ENCOUNTER 2023-02-19 09:16 | Oncology outpatient (recurring) (ONCR) | payer MEDICARE, MEDICAID, SELFPAY ==
[2023-02-19 09:30] VITALS: BP 134/65; PULSE 75; RESP 16; TEMP 36.1; O2SAT 95
[2023-02-19 09:54] LABS: Red Blood Count 3.38 10^6/uL (3.85-5.65); White Blood Count 1.89 10^3/uL (3.29-11.43)
[2023-02-19 09:55] LABS: Basophils % 1.6 %; Eosinophils % 1.1 %; Hematocrit 32.6 % (36-47); Lymphocytes # 0.6 10^3/uL (0.8-4.8); Lymphocytes % 33.9 %; Mean Corpuscular HGB Conc 31.9 g/dL (30-55); Mean Corpuscular Hemoglobin 30.8 pg (27-33); Mean Corpuscular Volume 96.4 fl (85-98); Mean Platelet Volume 9.5 fL (7.4-10.4); Monocytes # 0.1 10^3/uL (0.2-0.9); Monocytes % 5.3 %; Neutrophils # 1.09 10^3/uL (1.8-7.7); Neutrophils % 57.6 %; Nucleated Red Blood Cells % 0 %; Platelet Count 212 10^3/cmm (157-399)
[2023-02-19 10:07] LABS: INR 2.38 (0.8-1.2)
[2023-02-19 10:30] LABS: Alanine Aminotransferase 17 U/L (0-33); Albumin Level 3.7 g/dL (3.5-5.2); Alkaline Phosphatase 60 U/L (35-105); Anion Gap 13.1 (5-19); Aspartate Amino Transferase 17 U/L (0-32); Blood Urea Nitrogen 17 mg/dL (8-23); Calcium 9.1 mg/dL (8.5-10.5); Carbon Dioxide 24 mmol/L (22-29); Chloride 108 mmol/L (98-107); Globulin 2.5 g/dL (1.3-4.6); Glucose 98 mg/dL (65-115); Osmolality Calculated 294 mOsm/kg (285-295); Potassium 4.1 mmol/L (3.5-5.1); Sodium 141 mmol/L (136-145); Thyroid Stimulating Hormone 5.37 uIU/mL (0.27-4.20); Total Bilirubin 0.3 mg/dL (0.15-1.2); Total Protein 6.2 g/dL (6.6-8.7)
[2023-02-19] MEDS: sodium chloride 0.9% 250 ML 75 ML IV (12:03)
[2023-02-19] MEDS: acetaminophen 325 mg Tablet 650 MG PO (12:05)
[2023-02-19] MEDS: diphenhydrAMINE 50 mg/mL SDV 1mL 25 MG IVP (12:06)
[2023-02-19] MEDS: famotidine 20 mg/2 mL INJ IVP (12:09)
[2023-02-19] MEDS: palonosetron 0.25 mg/5 mL SDV IVP (12:11)
[2023-02-19] MEDS: dexamethasone 20 MG in sodium chloride 0.9% 50 ML 188 MG IV (12:14)
[2023-02-19] MEDS: pembrolizumab 200 MG in sodium chloride 0.9% 250 ML 516 MG IV (12:40)
[2023-02-19 12:47] LABS: Folate Level > 20.0 ng/mL (4.8-37.3)
[2023-02-19] MEDS: CARBOplatin 180 MG in sodium chloride 0.9% 500 ML 518 MG IV (14:55)
[2023-02-19 16:02] VITALS: BP 132/73; PULSE 84; TEMP 35.9; O2SAT 96
--- NOTE | 2023-02-19 16:19 | XRR_ITS ---
PROCEDURE INFORMATION: Exam: XR Left Knee Exam date and time: 02/19/2023 4:27 PM Age: 82 years old Clinical indication: Pain; Knee; Left; Additional info: Left knee pain TECHNIQUE: Imaging protocol: Radiologic exam of the left knee. Views: 3 views. COMPARISON: US soft tissue/extremity [id number] 06/06/2021 3:25 PM FINDINGS: Bones/joints: Normal. Soft tissues: Normal. XR/XR knee LT 3V* [id number] IMPRESSION: No acute findings.
[2023-02-21 09:47] LABS: C Reactive Protein 3.7 mg/L (0.0-4.9); Ferritin 216 ng/mL (15-150)
[2023-02-21 10:14] LABS: Free T4 Free Thyroxine 1.84 ng/dL (0.82-1.77)
[2023-02-21 10:24] LABS: Vitamin B12 > 2000 pg/mL (232-1245)
[2023-02-24 15:28] LABS: Cyclic Citrullinated Peptide <16 UNITS
== END 2023-02-19 23:59 | disposition home or self-care (01) ==
PROVIDERS: Internal Medicine; PCP Family Medicine; Visit Provider Internal Medicine Medical Oncology
DX: C50.812 Malignant neoplasm of overlapping sites of left female breast (principal); Z79.899 Other long term (current) drug therapy; Z51.11 Encounter for antineoplastic chemotherapy; Z17.1 Estrogen receptor negative status [ER-]; R06.02 Shortness of breath; Z53.9 Procedure and treatment not carried out, unspecified reason
CPT/HCPCS: 73562; 80053; 82607; 82728; 82746; 84439; 84443; 85025; 85610; 86140; 86200; 86431; 96367; 96375; 96413; 96417; 99215; J1100; J1200; J1642; J2469; J3490; J7040; J7050; J9045; J9267; J9271

== ENCOUNTER → 2023-03-11 12:53 | Outpatient (BNVA) | payer MEDICARE, MEDICAID, SELFPAY | PROVIDERS: PCP Family Medicine; Visit Provider Internal Medicine Pulmonary Disease | DX: R91.8 Other nonspecific abnormal finding of lung field (principal); I35.0 Nonrheumatic aortic (valve) stenosis; I82.5Y3 Chronic embolism and thrombosis of unspecified deep veins of proximal lower extremity, bilateral; I27.82 Chronic pulmonary embolism; J98.8 Other specified respiratory disorders; I27.20 Pulmonary hypertension, unspecified; Z86.16 Personal history of COVID-19; J30.9 Allergic rhinitis, unspecified | CPT/HCPCS: 99214 ==

== ENCOUNTER 2023-03-19 09:45 | Oncology outpatient (recurring) (ONCR) | payer MEDICARE, MEDICAID, SELFPAY ==
[2023-02-26 09:14] VITALS: BP 124/70; PULSE 81; RESP 16; TEMP 35.6; O2SAT 97
[2023-02-26 09:36] LABS: Eosinophils % 0.7 %; Hematocrit 32.6 % (36-47); Lymphocytes # 0.6 10^3/uL (0.8-4.8); Lymphocytes % 40.8 %; Mean Corpuscular HGB Conc 31.9 g/dL (30-55); Mean Corpuscular Hemoglobin 30.7 pg (27-33); Mean Corpuscular Volume 96.2 fl (85-98); Mean Platelet Volume 9.6 fL (7.4-10.4); Monocytes # 0.1 10^3/uL (0.2-0.9); Monocytes % 8.8 %; Neutrophils % 46.3 %; Nucleated Red Blood Cells % 1.4 %; Platelet Count 240 10^3/cmm (157-399); Red Blood Count 3.39 10^6/uL (3.85-5.65); Red Cell Distribution Width 14.8 % (12.1-15.1); White Blood Count 1.47 10^3/uL (3.29-11.43)
[2023-02-26 09:53] LABS: INR 1.93 (0.8-1.2)
[2023-02-26 10:02] LABS: Alanine Aminotransferase 21 U/L (0-33); Albumin Level 3.7 g/dL (3.5-5.2); Alkaline Phosphatase 56 U/L (35-105); Anion Gap 14.5 (5-19); Aspartate Amino Transferase 19 U/L (0-32); Blood Urea Nitrogen 26 mg/dL (8-23); Calcium 9.2 mg/dL (8.5-10.5); Carbon Dioxide 24 mmol/L (22-29); Chloride 103 mmol/L (98-107); Globulin 2.6 g/dL (1.3-4.6); Glucose 114 mg/dL (65-115); Osmolality Calculated 290 mOsm/kg (285-295); Potassium 4.5 mmol/L (3.5-5.1); Sodium 137 mmol/L (136-145); Total Bilirubin 0.3 mg/dL (0.15-1.2); Total Protein 6.3 g/dL (6.6-8.7)
[2023-02-26 10:08] LABS: Free T4 Free Thyroxine 1.88 ng/dL (0.82-1.77)
[2023-02-26 10:13] LABS: Neutrophils # 0.68 10^3/uL (1.8-7.7)
[2023-03-05 09:30] VITALS: BP 148/70; PULSE 93; RESP 16; TEMP 36.3; O2SAT 95
[2023-03-05 09:39] LABS: Basophils # 0.1 10^3/uL (0.0-0.1); Basophils % 2.2 %; Eosinophils % 0.8 %; Hematocrit 34.2 % (36-47); Lymphocytes # 1.3 10^3/uL (0.8-4.8); Lymphocytes % 36.8 %; Mean Corpuscular HGB Conc 31.9 g/dL (30-55); Mean Corpuscular Hemoglobin 31.4 pg (27-33); Mean Corpuscular Volume 98.6 fl (85-98); Mean Platelet Volume 9.5 fL (7.4-10.4); Monocytes # 0.7 10^3/uL (0.2-0.9); Monocytes % 19.8 %; Nucleated Red Blood Cells % 0 %; Platelet Count 261 10^3/cmm (157-399); Red Blood Count 3.47 10^6/uL (3.85-5.65); Red Cell Distribution Width 16.4 % (12.1-15.1); White Blood Count 3.59 10^3/uL (3.29-11.43)
[2023-03-05 10:02] LABS: Alanine Aminotransferase 16 U/L (0-33); Albumin Level 3.6 g/dL (3.5-5.2); Alkaline Phosphatase 64 U/L (35-105); Anion Gap 12.2 (5-19); Aspartate Amino Transferase 20 U/L (0-32); Blood Urea Nitrogen 25 mg/dL (8-23); Calcium 9.3 mg/dL (8.5-10.5); Carbon Dioxide 25 mmol/L (22-29); Chloride 105 mmol/L (98-107); Globulin 2.7 g/dL (1.3-4.6); Glucose 112 mg/dL (65-115); Osmolality Calculated 291 mOsm/kg (285-295); Potassium 4.2 mmol/L (3.5-5.1); Sodium 138 mmol/L (136-145); Total Bilirubin 0.2 mg/dL (0.15-1.2); Total Protein 6.3 g/dL (6.6-8.7)
[2023-03-05] MEDS: sodium chloride 0.9% 250 ML 75 ML IV (11:22)
[2023-03-05] MEDS: acetaminophen 325 mg Tablet 650 MG PO (11:26)
[2023-03-05] MEDS: diphenhydrAMINE 50 mg/mL SDV 1mL 25 MG IVP (11:27)
[2023-03-05] MEDS: famotidine 20 mg/2 mL INJ IVP (11:30)
[2023-03-05] MEDS: palonosetron 0.25 mg/5 mL SDV IVP (11:32)
[2023-03-05] MEDS: dexamethasone 20 MG in sodium chloride 0.9% 50 ML 188 MG IV (11:36)
[2023-03-05] MEDS: CARBOplatin 180 MG in sodium chloride 0.9% 500 ML 518 MG IV (13:09)
[2023-03-05 14:20] VITALS: BP 110/65; PULSE 87; RESP 16; TEMP 36.5; O2SAT 95
[2023-03-19 09:50] VITALS: BP 115/64; PULSE 81; RESP 16; TEMP 36.4; O2SAT 95
[2023-03-19 10:13] LABS: Basophils # 0.1 10^3/uL (0.0-0.1); Basophils % 1.4 %; Eosinophils # 0.1 10^3/uL (0.0-0.8); Eosinophils % 2.5 %; Hematocrit 32.9 % (36-47); Lymphocytes # 1.1 10^3/uL (0.8-4.8); Lymphocytes % 25.6 %; Mean Corpuscular HGB Conc 31.6 g/dL (30-55); Mean Corpuscular Hemoglobin 31.2 pg (27-33); Mean Corpuscular Volume 98.8 fl (85-98); Mean Platelet Volume 9.6 fL (7.4-10.4); Monocytes # 0.7 10^3/uL (0.2-0.9); Monocytes % 15.8 %; Neutrophils # 2.35 10^3/uL (1.8-7.7); Neutrophils % 53.8 %; Nucleated Red Blood Cells % 0 %; Platelet Count 203 10^3/cmm (157-399); Red Blood Count 3.33 10^6/uL (3.85-5.65); Red Cell Distribution Width 16.9 % (12.1-15.1); White Blood Count 4.37 10^3/uL (3.29-11.43)
[2023-03-19 10:49] LABS: Alanine Aminotransferase 11 U/L (0-33); Albumin Level 3.6 g/dL (3.5-5.2); Alkaline Phosphatase 72 U/L (35-105); Anion Gap 14.3 (5-19); Aspartate Amino Transferase 18 U/L (0-32); Blood Urea Nitrogen 19 mg/dL (8-23); Calcium 9.6 mg/dL (8.5-10.5); Carbon Dioxide 24 mmol/L (22-29); Chloride 102 mmol/L (98-107); Free T4 Free Thyroxine 1.75 ng/dL (0.82-1.77); Globulin 2.9 g/dL (1.3-4.6); Glucose 172 mg/dL (65-115); Osmolality Calculated 288 mOsm/kg (285-295); Potassium 4.3 mmol/L (3.5-5.1); Sodium 136 mmol/L (136-145); Thyroid Stimulating Hormone 4.33 uIU/mL (0.27-4.20); Total Bilirubin 0.3 mg/dL (0.15-1.2); Total Protein 6.5 g/dL (6.6-8.7)
[2023-03-19] MEDS: sodium chloride 0.9% 250 ML 75 ML IV (11:34)
[2023-03-19] MEDS: palonosetron 0.25 mg/5 mL SDV IVP (11:41)
[2023-03-19] MEDS: diphenhydrAMINE 50 mg/mL SDV 1mL 25 MG IVP (11:42)
[2023-03-19] MEDS: famotidine 20 mg/2 mL INJ IVP (11:46)
[2023-03-19] MEDS: acetaminophen 325 mg Tablet 650 MG PO (11:46)
[2023-03-19] MEDS: dexamethasone 20 MG in sodium chloride 0.9% 50 ML 188 MG IV (11:52)
[2023-03-19] MEDS: pembrolizumab 200 MG in sodium chloride 0.9% 250 ML 516 MG IV (12:17)
[2023-03-19] MEDS: CARBOplatin 140 MG in sodium chloride 0.9% 500 ML 514 MG IV (14:03)
[2023-03-19 15:30] VITALS: BP 113/71; PULSE 86; RESP 16; TEMP 36.4; O2SAT 96
== END 2023-03-19 23:59 | disposition home or self-care (01) ==
PROVIDERS: Internal Medicine; PCP Family Medicine; Visit Provider Internal Medicine Medical Oncology
DX: Z51.11 Encounter for antineoplastic chemotherapy (principal); C50.412 Malignant neoplasm of upper-outer quadrant of left female breast; Z79.899 Other long term (current) drug therapy
CPT/HCPCS: 80053; 84439; 84443; 85025; 85610; 96367; 96375; 96413; 96417; 99214; J1100; J1200; J1642; J2469; J3490; J7040; J7050; J9045; J9267; J9271

== ENCOUNTER 2023-04-09 09:00 | Oncology outpatient (recurring) (ONCR) | payer MEDICARE, MEDICAID, SELFPAY ==
[2023-03-26 09:49] LABS: Basophils # 0.1 10^3/uL (0.0-0.1); Basophils % 1.2 %; Eosinophils # 0.2 10^3/uL (0.0-0.8); Hematocrit 31.7 % (36-47); Lymphocytes # 1.1 10^3/uL (0.8-4.8); Lymphocytes % 21.7 %; Mean Corpuscular HGB Conc 32.2 g/dL (30-55); Mean Corpuscular Hemoglobin 31.8 pg (27-33); Mean Corpuscular Volume 98.8 fl (85-98); Mean Platelet Volume 9.3 fL (7.4-10.4); Monocytes # 0.3 10^3/uL (0.2-0.9); Monocytes % 6.9 %; Neutrophils # 3.23 10^3/uL (1.8-7.7); Neutrophils % 65.4 %; Nucleated Red Blood Cells % 0 %; Platelet Count 194 10^3/cmm (157-399); Red Blood Count 3.21 10^6/uL (3.85-5.65); Red Cell Distribution Width 16.2 % (12.1-15.1); White Blood Count 4.94 10^3/uL (3.29-11.43)
[2023-03-26 10:06] LABS: Alanine Aminotransferase 15 U/L (0-33); Albumin Level 3.6 g/dL (3.5-5.2); Alkaline Phosphatase 72 U/L (35-105); Anion Gap 13.5 (5-19); Aspartate Amino Transferase 19 U/L (0-32); Blood Urea Nitrogen 25 mg/dL (8-23); Calcium 9.5 mg/dL (8.5-10.5); Carbon Dioxide 24 mmol/L (22-29); Chloride 104 mmol/L (98-107); Globulin 2.9 g/dL (1.3-4.6); Glucose 132 mg/dL (65-115); Osmolality Calculated 290 mOsm/kg (285-295); Potassium 4.5 mmol/L (3.5-5.1); Sodium 137 mmol/L (136-145); Total Bilirubin 0.3 mg/dL (0.15-1.2); Total Protein 6.5 g/dL (6.6-8.7)
[2023-03-26] MEDS: dexamethasone 20 MG in sodium chloride 0.9% 50 ML 188 MG IV (12:58)
[2023-03-26] MEDS: sodium chloride 0.9% 1,000 ML 999 ML IV (12:58)
[2023-03-26] MEDS: acetaminophen 325 mg Tablet 650 MG PO (13:00)
[2023-03-26] MEDS: palonosetron 0.25 mg/5 mL SDV IVP (13:00)
[2023-03-26] MEDS: diphenhydrAMINE 50 mg/mL SDV 1mL 25 MG IVP (13:02)
[2023-03-26] MEDS: famotidine 20 mg/2 mL INJ IVP (13:04)
[2023-03-26] MEDS: CARBOplatin 140 MG in sodium chloride 0.9% 500 ML 514 MG IV (14:43)
[2023-03-26 16:05] VITALS: BP 130/74; PULSE 85; RESP 16; TEMP 36.7; O2SAT 97
[2023-04-02 08:58] VITALS: BP 128/70; PULSE 85; RESP 16; TEMP 37.1; O2SAT 96
[2023-04-02 09:32] LABS: Basophils # 0.1 10^3/uL (0.0-0.1); Basophils % 1.3 %; Eosinophils # 0.2 10^3/uL (0.0-0.8); Hematocrit 30.8 % (36-47); Lymphocytes # 0.7 10^3/uL (0.8-4.8); Lymphocytes % 19.4 %; Mean Corpuscular HGB Conc 31.8 g/dL (30-55); Mean Corpuscular Hemoglobin 31.7 pg (27-33); Mean Corpuscular Volume 99.7 fl (85-98); Mean Platelet Volume 10.5 fL (7.4-10.4); Monocytes # 0.4 10^3/uL (0.2-0.9); Monocytes % 10.8 %; Neutrophils # 2.38 10^3/uL (1.8-7.7); Nucleated Red Blood Cells % 0 %; Platelet Count 178 10^3/cmm (157-399); Red Blood Count 3.09 10^6/uL (3.85-5.65); Red Cell Distribution Width 17.2 % (12.1-15.1); White Blood Count 3.72 10^3/uL (3.29-11.43)
[2023-04-02 09:52] LABS: Alanine Aminotransferase 15 U/L (0-33); Albumin Level 3.8 g/dL (3.5-5.2); Alkaline Phosphatase 75 U/L (35-105); Anion Gap 14.3 (5-19); Aspartate Amino Transferase 18 U/L (0-32); Blood Urea Nitrogen 18 mg/dL (8-23); Calcium 9.6 mg/dL (8.5-10.5); Carbon Dioxide 24 mmol/L (22-29); Chloride 103 mmol/L (98-107); Glucose 110 mg/dL (65-115); Osmolality Calculated 287 mOsm/kg (285-295); Potassium 4.3 mmol/L (3.5-5.1); Sodium 137 mmol/L (136-145); Total Bilirubin 0.3 mg/dL (0.15-1.2); Total Protein 6.8 g/dL (6.6-8.7)
[2023-04-02] MEDS: sodium chloride 0.9% 250 ML 75 ML IV (11:33)
[2023-04-02] MEDS: diphenhydrAMINE 50 mg/mL SDV 1mL 25 MG IVP (11:34)
[2023-04-02] MEDS: acetaminophen 325 mg Tablet 650 MG PO (11:34)
[2023-04-02] MEDS: famotidine 20 mg/2 mL INJ IVP (11:35)
[2023-04-02] MEDS: dexamethasone 20 MG in sodium chloride 0.9% 50 ML 188 MG IV (11:36)
[2023-04-02] MEDS: palonosetron 0.25 mg/5 mL SDV IVP (11:37)
[2023-04-02] MEDS: CARBOplatin 140 MG in sodium chloride 0.9% 500 ML 514 MG IV (13:16)
[2023-04-02 14:25] VITALS: BP 108/61; PULSE 95; RESP 16; TEMP 36.3; O2SAT 93
[2023-04-09 09:27] VITALS: BP 137/71; PULSE 82; RESP 16; TEMP 36.3; O2SAT 97
[2023-04-09 09:48] LABS: Basophils % 1.1 %; Eosinophils # 0.1 10^3/uL (0.0-0.8); Eosinophils % 2.1 %; Hematocrit 28.9 % (36-47); Lymphocytes # 0.8 10^3/uL (0.8-4.8); Lymphocytes % 27.5 %; Mean Corpuscular HGB Conc 32.5 g/dL (30-55); Mean Corpuscular Hemoglobin 32.6 pg (27-33); Mean Corpuscular Volume 100.3 fl (85-98); Mean Platelet Volume 9.9 fL (7.4-10.4); Monocytes # 0.3 10^3/uL (0.2-0.9); Monocytes % 10.4 %; Neutrophils # 1.62 10^3/uL (1.8-7.7); Neutrophils % 57.8 %; Nucleated Red Blood Cells % 0.7 %; Platelet Count 161 10^3/cmm (157-399); Red Blood Count 2.88 10^6/uL (3.85-5.65); Red Cell Distribution Width 17.6 % (12.1-15.1)
[2023-04-09 10:12] LABS: Alanine Aminotransferase 15 U/L (0-33); Albumin Level 3.6 g/dL (3.5-5.2); Alkaline Phosphatase 67 U/L (35-105); Anion Gap 12.4 (5-19); Aspartate Amino Transferase 16 U/L (0-32); Blood Urea Nitrogen 20 mg/dL (8-23); Calcium 8.9 mg/dL (8.5-10.5); Carbon Dioxide 22 mmol/L (22-29); Chloride 104 mmol/L (98-107); Globulin 2.8 g/dL (1.3-4.6); Glucose 110 mg/dL (65-115); Osmolality Calculated 281 mOsm/kg (285-295); Potassium 4.4 mmol/L (3.5-5.1); Sodium 134 mmol/L (136-145); Thyroid Stimulating Hormone 4.78 uIU/mL (0.27-4.20); Total Bilirubin 0.4 mg/dL (0.15-1.2); Total Protein 6.4 g/dL (6.6-8.7)
[2023-04-09] MEDS: pembrolizumab 200 MG in sodium chloride 0.9% 250 ML 516 MG IV (11:21)
[2023-04-09] MEDS: sodium chloride 0.9% 250 ML 75 ML IV (11:21)
[2023-04-09 12:05] VITALS: BP 132/73; PULSE 89; RESP 16; TEMP 36.3; O2SAT 98
== END 2023-04-09 23:59 | disposition home or self-care (01) ==
PROVIDERS: PCP Family Medicine; Visit Provider Internal Medicine Medical Oncology
DX: Z51.11 Encounter for antineoplastic chemotherapy (principal); C50.412 Malignant neoplasm of upper-outer quadrant of left female breast; Z79.01 Long term (current) use of anticoagulants; Z53.9 Procedure and treatment not carried out, unspecified reason
CPT/HCPCS: 80053; 84443; 85025; 96367; 96375; 96413; 96417; 99214; 99215; A4222; J1100; J1200; J1642; J2469; J3490; J7030; J7040; J7050; J9045; J9267; J9271

== ENCOUNTER → 2023-04-28 10:17 | Outpatient (BNVA) | payer MEDICARE, MEDICAID, SELFPAY | PROVIDERS: PCP Family Medicine; Visit Provider Specialist | DX: M17.12 Unilateral primary osteoarthritis, left knee; M70.52 Other bursitis of knee, left knee | CPT/HCPCS: 73560; 73565; 99204 ==

== ENCOUNTER 2023-04-30 07:57 | Oncology outpatient (recurring) (ONCR) | payer MEDICARE, MEDICAID, SELFPAY ==
[2023-04-30 08:08] VITALS: BP 119/72; PULSE 80; RESP 16; TEMP 36.6; O2SAT 96
[2023-04-30 08:24] LABS: Basophils # 0.1 10^3/uL (0.0-0.1); Basophils % 0.8 %; Eosinophils # 0.2 10^3/uL (0.0-0.8); Eosinophils % 2.6 %; Lymphocytes # 1.1 10^3/uL (0.8-4.8); Lymphocytes % 17.6 %; Mean Corpuscular HGB Conc 31.8 g/dL (30-55); Mean Corpuscular Hemoglobin 33.7 pg (27-33); Mean Corpuscular Volume 105.8 fl (85-98); Mean Platelet Volume 9.2 fL (7.4-10.4); Monocytes # 0.7 10^3/uL (0.2-0.9); Neutrophils # 4.06 10^3/uL (1.8-7.7); Neutrophils % 66.7 %; Nucleated Red Blood Cells % 0 %; Platelet Count 144 10^3/cmm (157-399); Red Blood Count 3.12 10^6/uL (3.85-5.65); Red Cell Distribution Width 17.3 % (12.1-15.1); White Blood Count 6.09 10^3/uL (3.29-11.43)
[2023-04-30 08:44] LABS: INR 1.59 (0.8-1.2)
[2023-04-30 08:45] LABS: Partial Thromboplastin Time 39.1 SECONDS (23.9-36.7)
[2023-04-30 08:52] LABS: Alanine Aminotransferase 10 U/L (0-33); Albumin Level 3.4 g/dL (3.5-5.2); Alkaline Phosphatase 79 U/L (35-105); Anion Gap 14.2 (5-19); Aspartate Amino Transferase 17 U/L (0-32); Blood Urea Nitrogen 20 mg/dL (8-23); Calcium 9.5 mg/dL (8.5-10.5); Carbon Dioxide 23 mmol/L (22-29); Chloride 106 mmol/L (98-107); Globulin 3.3 g/dL (1.3-4.6); Glucose 116 mg/dL (65-115); Osmolality Calculated 292 mOsm/kg (285-295); Potassium 4.2 mmol/L (3.5-5.1); Sodium 139 mmol/L (136-145); Thyroid Stimulating Hormone 3.63 uIU/mL (0.27-4.20); Total Bilirubin 0.3 mg/dL (0.15-1.2); Total Protein 6.7 g/dL (6.6-8.7)
[2023-04-30] MEDS: pembrolizumab 200 MG in sodium chloride 0.9% 250 ML 516 MG IV (11:02)
[2023-04-30 11:45] VITALS: BP 131/76; PULSE 85; RESP 16; TEMP 36.7; O2SAT 96
== END 2023-04-30 23:59 | disposition home or self-care (01) ==
PROVIDERS: PCP Family Medicine; Visit Provider Internal Medicine Medical Oncology
DX: Z51.11 Encounter for antineoplastic chemotherapy (principal); C50.412 Malignant neoplasm of upper-outer quadrant of left female breast; Z79.01 Long term (current) use of anticoagulants; Z53.9 Procedure and treatment not carried out, unspecified reason; Z79.899 Other long term (current) drug therapy
CPT/HCPCS: 80053; 84443; 85025; 85610; 85730; 96413; 99214; A4222; J1642; J7050; J9271

== ENCOUNTER 2023-05-21 08:39 | Oncology outpatient (recurring) (ONCR) | payer MEDICARE, MEDICAID, SELFPAY ==
[2023-05-21 09:13] LABS: Basophils # 0.1 10^3/uL (0.0-0.1); Basophils % 1.1 %; Eosinophils # 0.4 10^3/uL (0.0-0.8); Eosinophils % 8.9 %; Lymphocytes % 21.3 %; Mean Corpuscular HGB Conc 32.6 g/dL (30-55); Mean Corpuscular Hemoglobin 34.1 pg (27-33); Mean Corpuscular Volume 104.8 fl (85-98); Mean Platelet Volume 9.5 fL (7.4-10.4); Monocytes # 0.6 10^3/uL (0.2-0.9); Monocytes % 12.2 %; Neutrophils # 2.52 10^3/uL (1.8-7.7); Neutrophils % 56.1 %; Nucleated Red Blood Cells % 0 %; Platelet Count 199 10^3/cmm (157-399); Red Blood Count 3.34 10^6/uL (3.85-5.65); Red Cell Distribution Width 15.6 % (12.1-15.1)
[2023-05-21 09:40] LABS: Alanine Aminotransferase 11 U/L (0-33); Albumin Level 3.6 g/dL (3.5-5.2); Alkaline Phosphatase 74 U/L (35-105); Anion Gap 12.3 (5-19); Aspartate Amino Transferase 19 U/L (0-32); Blood Urea Nitrogen 24 mg/dL (8-23); Calcium 9.8 mg/dL (8.5-10.5); Carbon Dioxide 26 mmol/L (22-29); Chloride 105 mmol/L (98-107); Globulin 3.1 g/dL (1.3-4.6); Glucose 115 mg/dL (65-115); Osmolality Calculated 293 mOsm/kg (285-295); Potassium 4.3 mmol/L (3.5-5.1); Sodium 139 mmol/L (136-145); Thyroid Stimulating Hormone 1.78 uIU/mL (0.27-4.20); Total Bilirubin 0.2 mg/dL (0.15-1.2); Total Protein 6.7 g/dL (6.6-8.7)
[2023-05-21 09:48] LABS: INR 2.27 (0.8-1.2)
[2023-05-21] MEDS: sodium chloride 0.9% 250 ML 50 ML IV (11:26)
[2023-05-21] MEDS: acetaminophen 325 mg Tablet 650 MG PO (11:30)
[2023-05-21] MEDS: diphenhydrAMINE 50 mg/mL SDV 1mL 25 MG IVP (11:32)
[2023-05-21] MEDS: palonosetron 0.25 mg/5 mL SDV IVP (11:33)
[2023-05-21] MEDS: OLANZapine 5 mg TABLET PO (11:33)
[2023-05-21] MEDS: famotidine 20 mg/2 mL INJ IVP (11:35)
[2023-05-21] MEDS: fosaprepitant 150 MG in sodium chloride 0.9% 150 ML 300 MG IV (11:42)
[2023-05-21 11:46] VITALS: BP 133/76; PULSE 81; RESP 18; TEMP 37.1; O2SAT 96
[2023-05-21] MEDS: pembrolizumab 200 MG in sodium chloride 0.9% 250 ML 516 MG IV (13:06)
[2023-05-21] MEDS: DOXOrubicin 2 mg/ml MDV 100 MG IVP (13:59)
[2023-05-21] MEDS: cyclophosphamide 1,000 MG in sodium chloride 0.9% 500 ML 500 MG IV (14:20)
[2023-05-21 15:30] VITALS: BP 102/51; PULSE 75; TEMP 36.4; O2SAT 92
== END 2023-05-21 23:59 | disposition home or self-care (01) ==
PROVIDERS: PCP Family Medicine; Visit Provider Internal Medicine Medical Oncology
DX: Z51.11 Encounter for antineoplastic chemotherapy (principal); C50.412 Malignant neoplasm of upper-outer quadrant of left female breast; Z79.01 Long term (current) use of anticoagulants; Z79.899 Other long term (current) drug therapy; Z51.12 Encounter for antineoplastic immunotherapy; Z17.1 Estrogen receptor negative status [ER-]; R53.83 Other fatigue
CPT/HCPCS: 80053; 84443; 85025; 85610; 96367; 96375; 96411; 96413; 96417; 99214; J1100; J1200; J1453; J1642; J2469; J3490; J7040; J7050; J9000; J9070; J9271

== ENCOUNTER → 2023-05-28 11:06 | Outpatient (BNVA) | payer MEDICARE, MEDICAID, SELFPAY | PROVIDERS: PCP Family Medicine; Visit Provider Internal Medicine Medical Oncology | DX: C50.412 Malignant neoplasm of upper-outer quadrant of left female breast (principal); R53.83 Other fatigue; Z79.899 Other long term (current) drug therapy | CPT/HCPCS: 85025 ==

== ENCOUNTER → 2023-06-04 11:21 | Outpatient (BNVA) | payer MEDICARE, MEDICAID, SELFPAY | PROVIDERS: PCP Family Medicine; Visit Provider Internal Medicine Medical Oncology | DX: C50.412 Malignant neoplasm of upper-outer quadrant of left female breast (principal); Z79.899 Other long term (current) drug therapy | CPT/HCPCS: 85025 ==

== ENCOUNTER 2023-06-11 09:27 | Oncology outpatient (recurring) (ONCR) | payer MEDICARE, MEDICAID, SELFPAY ==
[2023-06-11 09:53] LABS: Basophils # 0.1 10^3/uL (0.0-0.1); Basophils % 1.2 %; Eosinophils % 0.6 %; Hematocrit 33.9 % (36-47); Lymphocytes # 0.7 10^3/uL (0.8-4.8); Lymphocytes % 14.8 %; Mean Corpuscular HGB Conc 32.4 g/dL (30-55); Mean Corpuscular Hemoglobin 33.5 pg (27-33); Mean Corpuscular Volume 103.4 fl (85-98); Mean Platelet Volume 9.5 fL (7.4-10.4); Monocytes # 0.8 10^3/uL (0.2-0.9); Monocytes % 15.9 %; Neutrophils # 3.23 10^3/uL (1.8-7.7); Neutrophils % 66.7 %; Nucleated Red Blood Cells % 0 %; Platelet Count 232 10^3/cmm (157-399); Red Blood Count 3.28 10^6/uL (3.85-5.65); Red Cell Distribution Width 14.6 % (12.1-15.1); White Blood Count 4.85 10^3/uL (3.29-11.43)
[2023-06-11 10:24] LABS: Alanine Aminotransferase 10 U/L (0-33); Albumin Level 3.5 g/dL (3.5-5.2); Alkaline Phosphatase 76 U/L (35-105); Anion Gap 13.3 (5-19); Aspartate Amino Transferase 15 U/L (0-32); Blood Urea Nitrogen 20 mg/dL (8-23); Calcium 9.4 mg/dL (8.5-10.5); Carbon Dioxide 25 mmol/L (22-29); Chloride 104 mmol/L (98-107); Glucose 106 mg/dL (65-115); Osmolality Calculated 289 mOsm/kg (285-295); Potassium 4.3 mmol/L (3.5-5.1); Sodium 138 mmol/L (136-145); Thyroid Stimulating Hormone 1.43 uIU/mL (0.27-4.20); Total Bilirubin 0.2 mg/dL (0.15-1.2); Total Protein 6.5 g/dL (6.6-8.7)
[2023-06-11] MEDS: sodium chloride 0.9% 250 ML 75 ML IV (12:12)
[2023-06-11] MEDS: diphenhydrAMINE 50 mg/mL SDV 1mL 25 MG IVP (12:14)
[2023-06-11] MEDS: famotidine 20 mg/2 mL INJ IVP (12:18)
[2023-06-11] MEDS: palonosetron 0.25 mg/5 mL SDV IVP (12:20)
[2023-06-11] MEDS: OLANZapine 5 mg TABLET PO (12:21)
[2023-06-11] MEDS: acetaminophen 325 mg Tablet 650 MG PO (12:21)
[2023-06-11] MEDS: fosaprepitant 150 MG in sodium chloride 0.9% 150 ML 300 MG IV (12:56)
[2023-06-11] MEDS: pembrolizumab 200 MG in sodium chloride 0.9% 250 ML 516 MG IV (13:31)
[2023-06-11] MEDS: DOXOrubicin 2 mg/ml MDV 100 MG IVP (14:11)
[2023-06-11] MEDS: cyclophosphamide 1,000 MG in sodium chloride 0.9% 500 ML 500 MG IV (14:23)
[2023-06-11 16:28] VITALS: BP 113/77; PULSE 86; RESP 16; TEMP 36.5; O2SAT 97
== END 2023-06-11 23:59 | disposition home or self-care (01) ==
PROVIDERS: PCP Family Medicine; Visit Provider Internal Medicine Medical Oncology
DX: Z51.11 Encounter for antineoplastic chemotherapy (principal); C50.412 Malignant neoplasm of upper-outer quadrant of left female breast; R53.83 Other fatigue; Z51.12 Encounter for antineoplastic immunotherapy; D64.9 Anemia, unspecified; Z79.899 Other long term (current) drug therapy
CPT/HCPCS: 80053; 84443; 85025; 96367; 96375; 96413; 96415; 99213; A4222; J1100; J1200; J1453; J1642; J2469; J3490; J7040; J7050; J9000; J9070; J9271

== ENCOUNTER 2023-06-18 10:06 | Oncology outpatient (recurring) (ONCR) | payer MEDICARE, MEDICAID, SELFPAY ==
[2023-06-18 10:32] LABS: Basophils % 2.6 %; Eosinophils # 0.1 10^3/uL (0.0-0.8); Eosinophils % 3.3 %; Hematocrit 31.3 % (36-47); Lymphocytes # 0.4 10^3/uL (0.8-4.8); Lymphocytes % 23.7 %; Mean Corpuscular HGB Conc 32.3 g/dL (30-55); Mean Corpuscular Hemoglobin 33.8 pg (27-33); Mean Corpuscular Volume 104.7 fl (85-98); Mean Platelet Volume 9.6 fL (7.4-10.4); Monocytes % 0.7 %; Neutrophils # 1.03 10^3/uL (1.8-7.7); Neutrophils % 67.7 %; Nucleated Red Blood Cells % 0 %; Platelet Count 108 10^3/cmm (157-399); Red Blood Count 2.99 10^6/uL (3.85-5.65); Red Cell Distribution Width 14.1 % (12.1-15.1); White Blood Count 1.52 10^3/uL (3.29-11.43)
[2023-06-18 11:03] LABS: Slide Review Slide Review Perform
[2023-06-18 11:17] LABS: Alanine Aminotransferase 9 U/L (0-33); Albumin Level 3.5 g/dL (3.5-5.2); Alkaline Phosphatase 65 U/L (35-105); Anion Gap 13.3 (5-19); Aspartate Amino Transferase 14 U/L (0-32); Blood Urea Nitrogen 19 mg/dL (8-23); CA 15-3 29.6 U/mL (0-25); Calcium 9.3 mg/dL (8.5-10.5); Carbon Dioxide 24 mmol/L (22-29); Chloride 107 mmol/L (98-107); Globulin 2.5 g/dL (1.3-4.6); Glucose 111 mg/dL (65-115); Osmolality Calculated 293 mOsm/kg (285-295); Potassium 4.3 mmol/L (3.5-5.1); Sodium 140 mmol/L (136-145); Thyroid Stimulating Hormone 2.09 uIU/mL (0.27-4.20); Total Bilirubin 0.2 mg/dL (0.15-1.2)
== END 2023-06-19 23:59 | disposition home or self-care (01) ==
LOC: ONCMED 10:07
PROVIDERS: Nurse Practitioner Family; PCP Family Medicine; Visit Provider Internal Medicine Medical Oncology
DX: C50.412 Malignant neoplasm of upper-outer quadrant of left female breast (principal); Z79.01 Long term (current) use of anticoagulants; Z79.899 Other long term (current) drug therapy; I27.82 Chronic pulmonary embolism; I35.0 Nonrheumatic aortic (valve) stenosis; I82.5Y3 Chronic embolism and thrombosis of unspecified deep veins of proximal lower extremity, bilateral; I10 Essential (primary) hypertension; E78.5 Hyperlipidemia, unspecified
CPT/HCPCS: 80053; 84443; 85025; 86300; 99214

== ENCOUNTER 2023-06-20 11:46 | Outpatient (CLI) | payer MEDICARE, MEDICAID, SELFPAY ==
--- NOTE | 2023-06-20 12:45 | USCV_ITS ---
Janet Calvillo Age: 82 Gender: F : 1940 Exam Date: 06/20/2023 11:26 Ordering Phys: Ryann Boo MD ([email or web address]) Technologist: DEMETRIA Exam Location: [place] Indication: AORTIC STENOSIS BP: 102 / 64 HR: 0 Rhythm: Sinus Technical Quality: Adequate MEASUREMENTS (Male / Female) Normal Values 2D ECHO LV Diastolic Diameter PLAX 4.8 cm 4.2 - 5.9 / 3.9 - 5.3 cm IVS Diastolic Thickness 1.4 cm 0.6 - 1.0 / 0.6 - 0.9 cm IVS Systolic Thickness 1.7 cm LVPW Diastolic Thickness 2.5 cm 0.6 - 1.0 / 0.6 - 0.9 cm LVPW Systolic Thickness 3.1 cm LVOT Diameter 2.0 cm LV Ejection Fraction 2D Teich 81.8 % LV Ejection Fraction MOD 2C 57.1 % LV Ejection Fraction 2C AL 0.0 % LA Diameter 3.4 cm RA Systolic Volume 4C AL 25.4 ml RA Systolic Volume 4C MOD 23.9 ml Aorta at Sinotubular Diameter 2.3 cm IVC Diameter 1.1 cm M-MODE LA Ao Ratio MM 0.8 AV Cusp Separation MM 1.3 cm DOPPLER AV Peak Velocity 418.5 cm/s LVOT Peak Velocity 139.0 cm/s AV Area Cont Eq vti 1.0 cm squared AV Area Cont Eq pk 1.0 cm squared MV Peak Velocity 126.0 cm/s MV Area PHT 3.0 cm squared Mitral E to A Ratio 0.8 TR Peak Velocity 256.0 cm/s TR Peak Gradient 26.2 mmHg TR Mean Velocity 186.0 cm/s TR Mean Gradient 15.5 mmHg TR Velocity Time Integral 62.5 cm TV Peak E Velocity 59.0 cm/s Right Atrial Pressure 3.0 mmHg Pulmonary Artery Systolic Pressu 29.2 mmHg PV Peak Velocity 150.0 cm/s RV Ejection Time 0.4 s FINDINGS Left Ventricle Normal left ventricular size and systolic function, EF 60%.no regional wall motion abnormalities. Grade I/IV diastolic dysfunction (abnormal relaxation filling pattern), normal to mildly elevated filling pressures. Moderate left ventricular hypertrophy. Right Ventricle Normal right ventricular size and systolic function. Right Atrium Normal right atrial size. Left Atrium The left atrium is normal in size. Mitral Valve Mild mitral annular calcification. Aortic Valve [id number]-[id number] aortic valve regurgitation. Severe aortic valve stenosis, mean gradient 40.2 mmHg, DORCAS 0.99 cm squared. Peak velocity of 4.19 m/s. The valve index was 0.454 cm squared/m squared Tricuspid Valve Trace tricuspid valve regurgitation. Estimated pulmonary artery peak systolic pressure 29 mmHg Pulmonic Valve No gross abnormalities noted Pericardium Normal pericardium without effusion. Aorta Normal ascending aorta dimension. IVC The inferior vena cava appears normal. CONCLUSIONS Normal left ventricular size and systolic function, EF 60%.no regional wall motion abnormalities. Grade I/IV diastolic dysfunction (abnormal relaxation filling pattern), normal to mildly elevated filling pressures. Moderate left ventricular hypertrophy. Severe aortic valve stenosis, mean gradient 40.2 mmHg, DORCAS 0.99 cm squared. Peak velocity of 4.19m/s. The valve index was 0.454 cm squared/m squared. Cruv-bk-[id number] aortic valve regurgitation. Mild mitral annular calcification. There is no pericardial effusion. There are no intracardiac masses. Compared to the study from 12/25/2022, there is some worsening of the aortic valve stenosis Corrected copy of the study from 06/20/2023 Dr Ryann Boo MD [facility] (Electronically Signed) Final Date: 22 June 2023 19:03 Amended: 08 August 2023 08:59 C
== END 2023-06-20 11:47 | disposition home or self-care (01) ==
LOC: RAD 11:47
PROVIDERS: PCP Family Medicine; Visit Provider Internal Medicine Cardiovascular Disease
DX: R06.02 Shortness of breath (principal); I35.0 Nonrheumatic aortic (valve) stenosis; I35.1 Nonrheumatic aortic (valve) insufficiency
CPT/HCPCS: 93306

== ENCOUNTER → 2023-06-30 16:00 | Outpatient (BNVA) | payer MEDICARE, MEDICAID, SELFPAY | PROVIDERS: PCP Family Medicine; Visit Provider Internal Medicine Cardiovascular Disease | DX: I35.0 Nonrheumatic aortic (valve) stenosis (principal); I27.82 Chronic pulmonary embolism; I82.5Y3 Chronic embolism and thrombosis of unspecified deep veins of proximal lower extremity, bilateral; I10 Essential (primary) hypertension; E78.5 Hyperlipidemia, unspecified; Z79.01 Long term (current) use of anticoagulants | CPT/HCPCS: 99214 ==

== ENCOUNTER 2023-07-02 09:45 | Oncology outpatient (recurring) (ONCR) | payer MEDICARE, MEDICAID, SELFPAY ==
[2023-06-25] MEDS: filgrastim-sndz 480 mcg/0.8 mL Syringe SUBCUT (17:26)
[2023-06-25 17:28] VITALS: BP 123/72; PULSE 81; TEMP 36.3; O2SAT 99
[2023-06-26] MEDS: filgrastim-sndz 480 mcg/0.8 mL Syringe SUBCUT (15:18)
[2023-06-26 15:23] VITALS: BP 129/75; PULSE 93; O2SAT 97
[2023-06-27 10:25] LABS: Mean Corpuscular HGB Conc 31.9 g/dL (30-55); Mean Corpuscular Hemoglobin 33.3 pg (27-33); Mean Corpuscular Volume 104.4 fl (85-98); Mean Platelet Volume 9.7 fL (7.4-10.4); Platelet Count 165 10^3/cmm (157-399); Red Blood Count 2.97 10^6/uL (3.85-5.65); Red Cell Distribution Width 14.6 % (12.1-15.1); White Blood Count 11.32 10^3/uL (3.29-11.43)
[2023-06-27 11:09] LABS: Slide Review Slide Review Perform; Total Cells Counted 100 (0-100)
[2023-06-27 11:10] LABS: Absolute Eosinophils 0.2 10^3/cmm (0.0-0.7); Absolute Segmented Neutrophil 4.2 10/cmm (1.6-7.1); Eosinophils 2 %; Lymphocytes 10 %; Lymphocytes Absolute 1.1 10^3/cmm (1.2-3.4); Monocytes Absolute 0.5 10^3/cmm (0.1-0.6); Segmented Neutrophils 37 %
[2023-06-27 11:11] LABS: Absolute Neutrophil 9.2 10^3/cmm (1.4-6.5); Anisocytosis Trace; Macrocytosis 1+; Platelet Estimate Normal (Normal)
[2023-07-02 10:06] LABS: Basophils # 0.1 10^3/uL (0.0-0.1); Eosinophils % 0.4 %; Hematocrit 31.8 % (36-47); Lymphocytes # 0.8 10^3/uL (0.8-4.8); Mean Corpuscular HGB Conc 32.7 g/dL (30-55); Mean Corpuscular Hemoglobin 33.8 pg (27-33); Mean Corpuscular Volume 103.2 fl (85-98); Mean Platelet Volume 10.3 fL (7.4-10.4); Monocytes # 1.2 10^3/uL (0.2-0.9); Monocytes % 23.6 %; Neutrophils # 2.88 10^3/uL (1.8-7.7); Neutrophils % 56.1 %; Nucleated Red Blood Cells % 0.4 %; Platelet Count 178 10^3/cmm (157-399); Red Blood Count 3.08 10^6/uL (3.85-5.65); Red Cell Distribution Width 15.2 % (12.1-15.1); White Blood Count 5.13 10^3/uL (3.29-11.43)
[2023-07-02 10:16] LABS: INR 1.64 (0.8-1.2)
[2023-07-02 10:35] LABS: Alanine Aminotransferase 12 U/L (0-33); Albumin Level 3.6 g/dL (3.5-5.2); Alkaline Phosphatase 84 U/L (35-105); Anion Gap 12.5 (5-19); Aspartate Amino Transferase 17 U/L (0-32); Blood Urea Nitrogen 22 mg/dL (8-23); Calcium 9.5 mg/dL (8.5-10.5); Carbon Dioxide 25 mmol/L (22-29); Chloride 103 mmol/L (98-107); Globulin 2.5 g/dL (1.3-4.6); Glucose 96 mg/dL (65-115); Osmolality Calculated 285 mOsm/kg (285-295); Potassium 4.5 mmol/L (3.5-5.1); Sodium 136 mmol/L (136-145); Total Bilirubin 0.2 mg/dL (0.15-1.2); Total Protein 6.1 g/dL (6.6-8.7)
[2023-07-02] MEDS: OLANZapine 5 mg TABLET PO (12:11)
[2023-07-02] MEDS: sodium chloride 0.9% 250 ML 75 ML IV (12:11)
[2023-07-02] MEDS: diphenhydrAMINE 50 mg/mL SDV 1mL 25 MG IVP (12:14)
[2023-07-02] MEDS: famotidine 20 mg/2 mL INJ IVP (12:16)
[2023-07-02] MEDS: palonosetron 0.25 mg/5 mL SDV IVP (12:17)
[2023-07-02] MEDS: fosaprepitant 150 MG in sodium chloride 0.9% 150 ML 300 MG IV (12:38)
[2023-07-02] MEDS: pembrolizumab 200 MG in sodium chloride 0.9% 250 ML 516 MG IV (13:13)
[2023-07-02] MEDS: DOXOrubicin 2 mg/ml MDV 98 MG IVP (14:02)
[2023-07-02] MEDS: cyclophosphamide 1,000 MG in sodium chloride 0.9% 500 ML 500 MG IV (14:20)
[2023-07-02] MEDS: pegfilgrastim 6 mg/0.6 mL Kit (onpro) SUBCUT (15:36)
== END 2023-07-02 23:59 | disposition home or self-care (01) ==
PROVIDERS: PCP Family Medicine; Visit Provider Internal Medicine Medical Oncology
DX: Z51.11 Encounter for antineoplastic chemotherapy (principal); C50.412 Malignant neoplasm of upper-outer quadrant of left female breast; Z79.01 Long term (current) use of anticoagulants; Z79.899 Other long term (current) drug therapy; Z53.9 Procedure and treatment not carried out, unspecified reason; Z51.12 Encounter for antineoplastic immunotherapy; Z79.52 Long term (current) use of systemic steroids; Z17.0 Estrogen receptor positive status [ER+]
CPT/HCPCS: 36415; 80053; 84443; 85007; 85025; 85610; 96367; 96372; 96375; 96377; 96411; 96413; 96417; 99214; A4222; J1100; J1200; J1453; J1642; J2469; J2506; J3490; J7040; J7050; J9000; J9070; J9271; Q5101

== ENCOUNTER → 2023-07-09 10:58 | Outpatient (BNVA) | payer MEDICARE, MEDICAID, SELFPAY | PROVIDERS: PCP Family Medicine; Visit Provider Internal Medicine Medical Oncology | DX: C50.412 Malignant neoplasm of upper-outer quadrant of left female breast (principal) | CPT/HCPCS: 80053; 85025 ==

== ENCOUNTER → 2023-07-14 10:45 | Outpatient (BNVA) | payer MEDICARE, MEDICAID, SELFPAY | PROVIDERS: PCP Family Medicine; Visit Provider Internal Medicine Medical Oncology | DX: C50.412 Malignant neoplasm of upper-outer quadrant of left female breast (principal) | CPT/HCPCS: 80053; 85007; 85025 ==

== ENCOUNTER 2023-07-23 09:57 | Oncology outpatient (recurring) (ONCR) | payer MEDICARE, MEDICAID, SELFPAY ==
[2023-07-23 10:19] LABS: Basophils # 0.1 10^3/uL (0.0-0.1); Basophils % 1.5 %; Eosinophils # 0.1 10^3/uL (0.0-0.8); Eosinophils % 1.1 %; Hematocrit 33.8 % (36-47); Lymphocytes # 0.7 10^3/uL (0.8-4.8); Lymphocytes % 11.3 %; Mean Corpuscular HGB Conc 31.7 g/dL (30-55); Mean Corpuscular Hemoglobin 33.5 pg (27-33); Mean Platelet Volume 9.5 fL (7.4-10.4); Monocytes # 1.1 10^3/uL (0.2-0.9); Monocytes % 18.3 %; Neutrophils # 4.15 10^3/uL (1.8-7.7); Nucleated Red Blood Cells % 0 %; Platelet Count 292 10^3/cmm (157-399); Red Blood Count 3.19 10^6/uL (3.85-5.65); Red Cell Distribution Width 17.2 % (12.1-15.1); White Blood Count 6.19 10^3/uL (3.29-11.43)
[2023-07-23 10:51] LABS: Alanine Aminotransferase 13 U/L (0-33); Albumin Level 3.8 g/dL (3.5-5.2); Alkaline Phosphatase 73 U/L (35-105); Anion Gap 14.5 (5-19); Aspartate Amino Transferase 14 U/L (0-32); Blood Urea Nitrogen 27 mg/dL (8-23); Calcium 9.8 mg/dL (8.5-10.5); Carbon Dioxide 25 mmol/L (22-29); Chloride 104 mmol/L (98-107); Globulin 2.7 g/dL (1.3-4.6); Glucose 101 mg/dL (65-115); Osmolality Calculated 293 mOsm/kg (285-295); Potassium 4.5 mmol/L (3.5-5.1); Sodium 139 mmol/L (136-145); Thyroid Stimulating Hormone 0.28 uIU/mL (0.27-4.20); Total Bilirubin 0.2 mg/dL (0.15-1.2); Total Protein 6.5 g/dL (6.6-8.7)
[2023-07-23 11:23] LABS: CA 15-3 50.6 U/mL (0-25)
[2023-07-23] MEDS: OLANZapine 5 mg TABLET PO (12:52)
[2023-07-23] MEDS: sodium chloride 0.9% 250 ML 75 ML IV (12:52)
[2023-07-23] MEDS: diphenhydrAMINE 50 mg/mL SDV 1mL 25 MG IVP (12:53)
[2023-07-23] MEDS: famotidine 20 mg/2 mL INJ IVP (12:56)
[2023-07-23] MEDS: palonosetron 0.25 mg/5 mL SDV IVP (12:59)
[2023-07-23] MEDS: fosaprepitant 150 MG in sodium chloride 0.9% 150 ML 300 MG IV (13:15)
[2023-07-23] MEDS: pembrolizumab 200 MG in sodium chloride 0.9% 250 ML 516 MG IV (14:32)
[2023-07-23] MEDS: DOXOrubicin 2 mg/ml MDV 100 MG IVP (15:08)
[2023-07-23] MEDS: cyclophosphamide 1,000 MG in sodium chloride 0.9% 500 ML 500 MG IV (15:21)
[2023-07-23 16:31] VITALS: BP 104/57; PULSE 73; O2SAT 95
[2023-07-23] MEDS: pegfilgrastim 6 mg/0.6 mL Kit (onpro) SUBCUT (16:34)
== END 2023-07-23 23:59 | disposition home or self-care (01) ==
PROVIDERS: Nurse Practitioner Family; PCP Family Medicine; Visit Provider Internal Medicine Medical Oncology
DX: Z51.11 Encounter for antineoplastic chemotherapy (principal); C50.412 Malignant neoplasm of upper-outer quadrant of left female breast; Z79.01 Long term (current) use of anticoagulants; Z79.899 Other long term (current) drug therapy
CPT/HCPCS: 80053; 84443; 85025; 86300; 96367; 96375; 96377; 96409; 96413; 96417; A4222; J1100; J1200; J1453; J2469; J2506; J3490; J7040; J7050; J9000; J9075; J9271

== ENCOUNTER → 2023-08-05 11:01 | Outpatient (BNVA) | payer MEDICARE, MEDICAID, SELFPAY | PROVIDERS: PCP Family Medicine; Visit Provider Internal Medicine Cardiovascular Disease | DX: I35.0 Nonrheumatic aortic (valve) stenosis (principal); R06.02 Shortness of breath; Z79.899 Other long term (current) drug therapy | CPT/HCPCS: 80048; 85025; 85610 ==

== ENCOUNTER 2023-08-06 16:52 | Emergency (ER) | payer MEDICARE, MEDICAID, SELFPAY ==
[2023-08-06 16:56] VITALS: BP 131/83; PULSE 98; TEMP 36.7; O2SAT 99; BMI 40.3
--- NOTE | 2023-08-06 16:57 | XRR_ITS ---
PROCEDURE INFORMATION: Exam: XR Chest Exam date and time: 08/06/2023 5:06 PM Age: 83 years old Clinical indication: Shortness of breath; Prior surgery; Surgery date: 6+ months; Surgery type: Port; Additional info: SOB TECHNIQUE: Imaging protocol: Radiologic exam of the chest. Views: 1 view. COMPARISON: CT chest con [id number] 10/18/2021 12:03 PM FINDINGS: Tubes, catheters and devices: Right internal jugular Port-A-Cath with the tip at the cavoatrial junction. Lungs: Lungs are clear bilaterally. Pleural spaces: No pleural effusion. No pneumothorax. Heart/Mediastinum: Stable moderate enlargement of the cardiac silhouette. Mediastinal contours are unremarkable. Vasculature: Stable vascular calcifications in the aorta. Bones/joints: Unremarkable for age. XR/XR chest 1V portable [id number] IMPRESSION: 1. No acute cardiopulmonary process. 2. Incidental/nonacute findings are listed in the report.
--- NOTE | 2023-08-06 16:58 | ECG_ITS ---
[facility] [place] Date: 2023-08-06 Pat Name: Janet Calvillo Department: Room: Gender: Female Emt B: : 1940 Requested By: Everette Renee Order Number: [id number] Lexa MD: Shabbir Momin M.D. Measurements Intervals [place] Rate: 90 P: 58 OK: 148 QRS: 5 QRSD: 90 T: 42 QT: 369 QTc: 454 Interpretive Statements SINUS RHYTHM Compared to ECG 05/31/2016 16:20:18 No significant changes Electronically Signed On 08-07-2023 6:36:22 CDT by Shabbir Momin M.D. [email or web address]
--- NOTE | 2023-08-06 17:00 | ED_ITS ---
HPI - SOB/Dyspnea 2 General: Chief Complaint: Shortness of Breath/Dyspnea Stated Complaint: SOB Time Seen by Provider: 08/06/23 16:53 Source: patient and EMS Mode of arrival: EMS Limitations: no limitations History of Present Illness: HPI Narrative: 83-year-old female states that she has b reast cancer seen on chemo since January she states she has been having fatigue and dyspnea since she started her chemo. States its worsened over the last few weeks. States that she has had heart issues and history of aortic stenosis she has an angiogram scheduled tomorrow she denies any cough or fever she able to speak in full senses here no distress Associated symptoms: Deny abdominal pain, chest pain, fever(s), nausea or vomiting Review of Systems 2 Const: Denies: fever(s), chills, body aches or change in appetite ENMT: Denies: throat pain or dental pain Card: Denies: chest pain Resp: Reports: dyspnea GI: Denies: abdominal pain, nausea, vomiting or diarrhea : Denies: dysuria Musc: Denies: neck pain or back pain Skin/Breast: Denies: rash Neuro: Denies: headache(s) PFSH ED 2 PFSH: Medical History Asthma Breast cancer Hydronephrosis of right kidney Gross hematuria Osteoporosis Arthritis Aortic stenosis Hypertension DVT (deep venous thrombosis) Pulmonary embolism Obesity Surgical History Hx of tubal ligation Hx of cystoscopy Hx of colonoscopy Age 65 Hx of cholecystectomy H/O: hysterectomy Hx of cataract surgery S/P tonsillectomy Family History Father , AT 92 Congestive heart failure (CHF) Mother , AT 100 of unknown cause Other CAD (coronary artery disease) Cancer Diabetes Hyperlipidemia Hypertension Stroke Denies family history of Psychiatric illness Chronic kidney disease (CKD) Suicide Family history of premature coronary artery disease Lung disease Social History Smoking and tobacco/nicotine status: never used tobacco/nicotine Alcohol intake: never Substance/Drug Use: never Marital status: / Current occupational status: retired and disabled Physical Exam 2 Const: COMMON NORMALS: no acute distress, patient oriented x3 and healthy appearing HENMT: COMMON NORMALS: normocephalic and atraumatic HEAD & SCALP: n ormocephalic and atraumatic Neck/C-Spine: COMMON NORMALS: full ROM and supple Chest: COMMONS NORMALS: normal inspection of the chest and normal palpation of entire chest wall Resp: COMMON NORMALS: normal respiratory effort, No retractions, No use of accessory muscles and clear to auscultation bilaterally AUSCULTATION: clear to auscultation bilaterally Cardio: COMMON NORMALS: regular rate, regular rhythm and No murmurs present (Cardio) RATE: regular rate RHYTHM: regular rhythm GI: COMMON NORMALS: Normal to inspection, nondistended, normoactive bowel sounds present, Soft to palpation, non-tender and no masses PALPATION: Yes Soft to palpation Extremity: COMMON NORMALS: normal to inspection and full ROM Neuro: COMMON NORMALS: patient oriented x3, moves all extremities and no focal motor deficits Psych: COMMON NORMALS: mental status grossly normal, Normal thought process present and cooperative THOUGHT PROCESS: Normal thought process present Skin: COMMON NORMALS: no rashes or lesions noted and no wounds GENERAL SKIN EXAM: no rashes or lesions noted Course 2 Vital Signs: Vital signs: Vital Signs Temperature 98.1 F 08/06/23 16:56 Pulse Rate 91 08/06/23 19:40 Respiratory Rate 18 08/06/23 19:40 Blood Pressure 106/60 08/06/23 19:40 Pulse Oximetry 98 08/06/23 19:40 Oxygen Delivery Me thod Room Air 08/06/23 19:00 MDM - SOB/Dyspnea Medical Decision Making Patient presents here with dyspnea's been chronic in nature imaging blood work here is all normal she is stable for discharge she is return tomorrow for her angiogram she understands agrees to plan Medical Records I reviewed the patient's medical records. Lab Data I reviewed the patient's lab results. 08/06/23 17:20 08/06/23 17:20 Labs/Radiology: Radiology Impressions Chest X-Ray 08/06/23 16:57 IMPRESSION: 1. No acute cardiopulmonary process. 2. Incidental/nonacute findings are listed in the report. Chest CTA 08/06/23 17:08 IMPRESSION: 1. No evidence of PE or acute aortic abnormality. 2. 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 3. Right IJ MediPort in place. Laboratory Results WBC 7.05 10^3/uL (3.29-11.43) 08/06/23 17:20 RBC 2.65 10^6/uL (3.85-5.65) L 08/06/23 17:20 Hgb 9.00 g/dL (11.27-16.99) L 08/06/23 17:20 Hct 28.2 % (36-47) L 08/06/23 17:20 MCV 106.4 fl (85-98) H 08/06/23 17:20 MCH 34.0 pg (27-33) H 08/06/23 17:20 MCHC 31.9 g/dL (30-55) 08/06/23 17:20 RDW 17.0 % (12.1-15.1) H 08/06/23 17:20 Plt Count 182 10^3/cmm (157-399) 08/06/23 17:20 MPV 11.0 fL (7.4-10.4) H 08/06/23 17:20 Neut % (Auto) 62.2 % 08/06/23 17:20 Lymph % (Auto) 12.2 % 08/06/23 17:20 [place] % (Auto) 18.2 % 08/06/23 17:20 Eos % (Auto) 4.1 % 08/06/23 17:20 Baso % (Auto) 0.7 % 08/06/23 17:20 Neut # (Auto) 4.39 10^3/uL (1.8-7.7) 08/06/23 17:20 Lymph # (Auto) 0.9 10^3/uL (0.8-4.8) 08/06/23 17:20 [place] # (Auto) 1.3 10^3/uL (0.2-0.9) H 08/06/23 17:20 Eos # (Auto) 0.3 10^3/uL (0.0-0.8) 08/06/23 17:20 Baso # (Auto) 0.1 10^3/uL (0.0-0.1) 08/06/23 17:20 Nucleated RBC % (auto) 0.3 % 08/06/23 17:20 Nucleated RBCs # 0.0 /100WBC 08/06/23 17:20 Sodium 136 mmol/L (136-145) 08/06/23 17:20 Potassium 3.7 mmol/L (3.5-5.1) 08/06/23 17:20 Chloride 103 mmol/L (98-107) 08/06/23 17:20 Carbon Dioxide 22 mmol/L (22-29) 08/06/23 17:20 Anion Gap 14.7 (5-19) 08/06/23 17:20 BUN 15 mg/dL (8-23) 08/06/23 17:20 Creatinine 0.8 mg/dL (0.5-0.9) 08/06/23 17:20 GFR Calculation Not Reportable 08/06/23 17:20 Glucose 119 mg/dL (65-115) H 08/06/23 17:20 Calculated Osmolality 284 mOsm/kg (285-295) L 08/06/23 17:20 Calcium 9.3 mg/dL (8.5-10.5) 08/06/23 17:20 Total Bilirubin 0.3 mg/dL (0.15-1.2) 08/06/23 17:20 AST 24 U/L (0-32) 08/06/23 17:20 ALT 21 U/L (0-33) 08/06/23 17:20 Alkaline Phosphatase 91 U/L (35-105) 08/06/23 17:20 NT-Pro-B Natriuret Pep 224 pg/mL (0-450) 08/06/23 17:20 Total Protein 6.2 g/dL (6.6-8.7) L 08/06/23 17:20 Albumin 3.5 g/dL (3.5-5.2) 08/06/23 17:20 Globulin 2.7 g/dL (1.3-4.6) 08/06/23 17:20 All radiology interpretation(s) finalized by discharge EKG Data EKG 1: I personally reviewed and interpreted this EKG as follows: EKG Interpretation Date: 08/06/23 EKG interpretation time: 17:04 Interpretation: nsr hr [address] or t wave abnormalities qrs 90 qtc 417 Discharge Plan Discharge Patient Disposition: Home Clinical Impression: Shortness of breath Condition: Stable Prescriptions: No Action diphenhydramine HCl [Benadryl] 25 mg capsule 25 mg PO TID PRN (Reason: Itching) vitamin B complex [B Complex-Vitamin B12] Tablet 1 tab PO DAILY calcium carb,lactat-vitamin D3 200 mg calcium -250 unit tablet 1 tab PO QAM meclizine 25 mg tablet 25 mg PO TID multivitamin Tablet 1 tab PO DAILY tolterodine 4 mg capsule,extended release 24hr 4 mg PO DAILY fluoxetine [Prozac] 20 mg capsule 20 mg PO DAILY levothyroxine 100 mcg capsule 100 mcg PO DAILY red yeast rice 600 mg capsule 600 mg PO BID Rx Instructions: give with meal/snack furosemide [Lasix] 20 mg tablet 20 mg PO DAILY potassium chloride 10 mEq capsule, extended release 10 meq PO DAILY Prolia 60 mg/mL syringe 60 mg SUBCUT Q6M warfarin 5 mg tablet 10 mg PO DAILY Rx Instructions: per INR results cyanocobalamin (vitamin B-12) 2,500 mcg tablet 2,500 mcg PO DAILY vitamin E mixed 1,000 unit capsule 4,000 unit PO DAILY albuterol sulfate [Ventolin HFA] 90 mcg/actuation HFA aerosol inhaler 1 inh inhalation QID PRN (Reason: shortness of breath or wheezing) Qty: 8.5 3RF selenium 50 mcg tablet 50 mcg PO DAILY (DME) Nebulizer and accessory kit See Rx Instructions .Route .MEDSUPPLY Qty: 1 0RF Rx Instructions: As directed fluconazole 100 mg tablet 100 mg PO DAILY 5 Days Qty: 5 0RF (DME) custom inserts See Rx Instructions .Route .MEDSUPPLY Qty: 1 0RF Rx Instructions: As directed lidocaine-prilocaine 2.5-2.5 % cream 1 applic topical ONCE levalbuterol HCl 0.63 mg/3 mL solution for nebulization 0.63 mg inhalation TID PRN (Reason: shortness of breath or wheezing) Qty: 75 2RF Rx Instructions: DNExceed 3 doses/24h levofloxacin 500 mg tablet 500 mg PO DAILY 7 Days Qty: 7 0RF enoxaparin [Lovenox] 100 mg/mL syringe 100 mg SUBCUT DAILY Qty: 10 0RF Rx Instructions: 100 mg today acetaminophen [Tylenol] 325 mg capsule 325 mg PO Q6H Qty: 14 0RF lorazepam 1 mg tablet 0.5 - 1 mg PO Q6H PRN (Reason: Severe Nausea) Qty: 30 3RF lorazepam 1 mg tablet 0.5 - 1 mg PO Q6H PRN (Reason: Severe Nausea) Qty: 30 3RF Discharge Orders: Discharge ED (Routine); Ordered 08/06/23 Ordered By: Everette Renee Referrals: Sánchez Macario [Primary Care Provider] - 1-3 days Discharge Diet: Advance as tolerated Discharge Activity: Resume usual activity Patient Instructions: Shortness of Breath (ED) Coding Level of Care Code ED [employer] Associate Justice for Malu Cooper
--- NOTE | 2023-08-06 17:08 | CTR_ITS ---
PROCEDURE INFORMATION: Exam: CTA Chest With Contrast Exam date and time: 08/06/2023 6:22 PM Age: 83 years old Clinical indication: Shortness of breath; Prior surgery; Surgery date: 6+ months; Surgery type: Port; Additional info: SOB TECHNIQUE: Imaging protocol: Computed tomographic angiography of the chest with contrast. Exam focused on the arteries. 3D rendering (Not supervised by radiologist): MIP and/or 3D reconstructed images were created by the technologist. Radiation optimization: All CT scans at this facility use at least one of these dose optimization techniques: automated exposure control; mA and/or kV adjustment per patient size (includes targeted exams where dose is matched to clinical indication); or iterative reconstruction. Contrast material: OMNI 350; Contrast volume: 35 ml; Contrast route: INTRAVENOUS (IV); COMPARISON: CT chest [facility] [id number] 10/18/2021 12:03 PM RADIATION DOSE METRICS: Total DLP (mGy-cm): 416.51 FINDINGS: Pulmonary arteries: No evidence of pulmonary thromboembolism. Aorta: No evidence of dissection of the thoracic aorta. 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 Thyroid: Grossly unremarkable. Lungs: No focal consolidation. No evidence of pneumonia. 7 mm right lower lobe pulmonary nodule, unchanged since September 2021. There is subsegmental atelectasis and mosaic attenuation in both lungs secondary to the expiratory phase of respiration. Pleural spaces: No evidence of pleural effusion. No pneumothorax. Heart: No cardiomegaly. No pericardial effusion. Mediastinal space: Right IJ MediPort with tip terminating in the right atrium. Lymph nodes: No mediastinal or hilar adenopathy. Bones/joints: No evidence of acute fracture or aggressive osseous lesion. Soft tissues: No evidence of fluid collection or hematoma in the superficial soft tissues. Other findings: No evidence of acute abnormality in the upper abdomen. CT/CT angio chest PE protcl [id number] IMPRESSION: 1. No evidence of PE or acute aortic abnormality. 2. 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 3. Right IJ MediPort in place.
[2023-08-06 17:40] LABS: Basophils # 0.1 10^3/uL (0.0-0.1); Basophils % 0.7 %; Eosinophils # 0.3 10^3/uL (0.0-0.8); Eosinophils % 4.1 %; Hematocrit 28.2 % (36-47); Lymphocytes # 0.9 10^3/uL (0.8-4.8); Lymphocytes % 12.2 %; Mean Corpuscular HGB Conc 31.9 g/dL (30-55); Mean Corpuscular Volume 106.4 fl (85-98); Monocytes # 1.3 10^3/uL (0.2-0.9); Monocytes % 18.2 %; Neutrophils # 4.39 10^3/uL (1.8-7.7); Neutrophils % 62.2 %; Nucleated Red Blood Cells % 0.3 %; Platelet Count 182 10^3/cmm (157-399); Red Blood Count 2.65 10^6/uL (3.85-5.65); White Blood Count 7.05 10^3/uL (3.29-11.43)
[2023-08-06 18:14] LABS: Alanine Aminotransferase 21 U/L (0-33); Albumin Level 3.5 g/dL (3.5-5.2); Alkaline Phosphatase 91 U/L (35-105); Anion Gap 14.7 (5-19); Aspartate Amino Transferase 24 U/L (0-32); Blood Urea Nitrogen 15 mg/dL (8-23); Calcium 9.3 mg/dL (8.5-10.5); Carbon Dioxide 22 mmol/L (22-29); Chloride 103 mmol/L (98-107); Creatinine Clr Calc Pharmacy 68.0817; Globulin 2.7 g/dL (1.3-4.6); Glucose 119 mg/dL (65-115); NT Pro B Type Natriuretic Pept 224 pg/mL (0-450); Osmolality Calculated 284 mOsm/kg (285-295); Potassium 3.7 mmol/L (3.5-5.1); Sodium 136 mmol/L (136-145); Total Bilirubin 0.3 mg/dL (0.15-1.2); Total Protein 6.2 g/dL (6.6-8.7)
[2023-08-06] MEDS: iohexol 350 mg/mL 500 mL Btl (per mL) IV (18:30)
[2023-08-06 18:33] VITALS: BP 131/83; PULSE 97; RESP 18; O2SAT 96
[2023-08-06 19:00] VITALS: BP 94/59; PULSE 92; RESP 15; O2SAT 98
[2023-08-06 19:40] VITALS: BP 106/60; PULSE 91; RESP 18; O2SAT 98
== END 2023-08-06 19:51 | disposition home or self-care (01) ==
PROVIDERS: Emergency Provider Emergency Medicine; PCP Family Medicine
DX: M76.821 Posterior tibial tendinitis, right leg (principal); M76.822 Posterior tibial tendinitis, left leg; R06.02 Shortness of breath; Z79.01 Long term (current) use of anticoagulants; Z85.3 Personal history of malignant neoplasm of breast; I10 Essential (primary) hypertension
CPT/HCPCS: 71045; 71275; 80053; 83880; 85025; 93005; 96374; 99203; 99285; J1642; Q9967

== ENCOUNTER 2023-08-07 07:29 | Outpatient (CLI) | payer MEDICARE, MEDICAID, SELFPAY ==
[2023-08-07] VITALS (81 sets, daily range): BP systolic 77–117; BP diastolic 43–83; PULSE 89–107; RESP 6–31; TEMP 36.7–36.9; O2SAT 92–100; BMI 39.0
--- NOTE | 2023-08-07 05:31 | XACV_ITS ---
Exam Room: 2 Ht: 168 cm Wt: 110 kg BSA: 2.31 m2 Gender: Female : 1940 Any Known Allergies: Other Exam Priority: Routine Procedure(s): Procedure Description: Diagnostic procedure Procedure Description: Right Heart Catheterization Procedure Description: O2 saturation Procedure Description: Miscellaneous Procedure Description: ACT Procedure Description: Coronary Angiography Rajeev JESUS; Diagnostic Cath Status: Elective Diagnostic Findings * Left main is a medium caliber vessel with no significant stenotic lesions. * Left anterior descending artery is a medium caliber vessel which appears to wraparound the LV apex. Minimal intimal irregularities are noted in the midsegment. Minimal calcification was noted in the proximal segment. The first diagonal branch also was found to have minimal intimal irregularities proximally.. * The circumflex artery is a medium caliber nondominant vessel with no significant stenotic lesions. * The right coronary artery was found to have a high and posterior take off. It is a dominant vessel with no significant obstructive lesions. Conclusions 1. 83-year-old female with history of severe aortic valve stenosis presenting with shortness of breath, anemia and generalized weakness. Cardiac catheterization revealed the following. 2. 1. No significant obstructive coronary artery disease. 2. PA pressure of 34/13 with a mean of 20 mmHg. Pulmonary capillary wedge pressure of 9. Cardiac output of 5 with an index of 2 L/m2. Diagnostic RX Recommendation: other cardiac therapy w/o CABG/PCI Pressures Phase:Rest AO : 119 / 54 ( 82 ) @ 10:21:00 AM 102 / 68 ( 85 ) @ 10:29:00 AM RV : 33 / 0 / 6 @ 10:17:00 AM PA : 34 / 11 ( 19 ) @ 10:14:00 AM 34 / 13 ( 20 ) @ 10:14:00 AM RA : a wave = 10 v wave = 8 mean = 6 @ 10:17:00 AM PCW : a wave = 12 v wave = 10 mean = 9 @ 10:16:00 AM Hemodynamic Findings The right atrial pressure was 6 mm Hg. RV presure 33/6 mm Hg. PA pressure 34/13 mmHg. Cardic Output 5 L/min CI of 2L/m2. O2 Content Phase:Rest PA : O2 Content O2: 56.7 @ 10:14:00 AM Saturations Phase:Rest AO : 94 @ 10:14:00 AM RA : 61 @ 10:29:00 AM RV : 63 @ 10:21:00 AM PA : 57 @ 10:14:00 AM Cardiac Output Phase:Rest Shanda : 5 @ 9:59:16 AM Shanda Cardiac Index: 2 @ 9:59:16 AM Flow Phase:Rest Qp : 5 @ 9:59:16 AM Qs : 5 @ 9:59:16 AM Clinical Evaluation EBL: 5mL-10mL Procedural Details Procedure Consent Obtained. Pre-Procedure Time Out. Identified patient by full name and date of as verbalized by the patient/guarantor. Does the consent match the physician's order: Yes. Accurate & Complete Informed Consent: Yes. Inpatient/Outpatient History & Physical on Chart: Yes. If H&P is completed, is and addenduem needed: No; If yes, is the addendum complete: N/A. Visualize and Verify Site with Patient/Guarantor: N/A. Relevant Radiology Images available: Yes. Pre-op teaching completed and patient verbalized understanding. The risks, benefits, and alternatives of sedation and/or procedure were discussed by physician. The patient agrees to continue. Procedure started. [facility] Clinical Fraility Score: 6: Moderately Frail. Switch Engineer Indications: Other. Chest Pain Symptom Assessment: Atypical Angina. Physician arrived. Correct patient, site and procedure confirmed by cath team. PERRLA. Strong, equal hand mangle tender cloth bilaterally. Lungs clear x 5 lobes. IV Site on Arrival: 20 gauge in the right anticubital and right upper chest portacath. IV Fluids: 0.9% NaCl at KVO. 0 mL infused prior to receiver/laborer. bilateral groins was prepped with chloroprep then draped in the usual sterile fashion. Baseline sample Acquired. HR: 102 BPM. Physician scrubbed in. Correct Patient: Yes; Correct Procedure: Yes; Correct Site: Yes; Correct Patient Position: Yes; Correct Supplies: Yes; Dried Flammable Prep: Yes; Blood Products Available: N/A;. Lidocaine 1% infiltrated to the right groin. Arterial access obtained with micropuncture set. Lidocaine 1% infiltrated to the right groin. Venous access obtained with a micropuncture set. [place] MON catheter inserted. Oximetry samples were obtained. Normal venous range: 60-85%. Normal arterial range: 95-100%. Pressure measurements obtained. [place] out. A 5 khmer JL4 catheter in over wire. Catheter removed over the standard wire. A 5 khmer JL5 catheter in over wire. Multiple views taken of left coronary artery. Catheter removed over the standard wire. A 5 khmer JR4 catheter in over wire. Catheter removed over the standard wire. A 5 khmer 3DRC catheter in over wire. Multiple views taken of right coronary artery. Catheter removed over the exchange wire. ACT drawn. Results 205 seconds. Therapeutic limits - pre-heparin administration 90-150 seconds and monitoring heparin during a vascular procedure >250 seconds. A Suture was successful obtaining hemostatsis at the Right Femoral vein insertion site. A Suture was successful obtaining hemostatsis at the Right Femoral artery insertion site. Arterial sheath flushed and connected to tranducer and pressure bag with heparinized saline. Post Procedure: Pulses reassessed and unchanged. PERRLA. Strong, equal hand mangle tender cloth bilaterally. No VTE prophylaxis required. Medication's Wasted: Lidocaine 1% = 20 mL. Medication's Wasted: Other = Fentanyl 50 mcg. Total IV fluids: 285 mL. Post-op diagnosis: Normal Coronaries. Complications: None. Estimated blood loss: 5mL-10mL. Responsiveness - Normal response to verbal stimuli; alert and oriented, PERRLA. Airway - Unaffected, no intervention required; spontaneous ventilation. Circulation: W/N/L, pulses unchanged. Nausea/Vomiting: No. Procedure completed. Vital chart was stopped. Access Site Site: Right Femoral artery Sheath Size: 6 Fr Hemostasis Method: Suture Hemostasis Success: Successful Site: Right Femoral vein Sheath Size: 6 Fr Hemostasis Method: Suture Hemostasis Success: Successful Procedure Medications Start: 8:53 AM Stop: 8:53 AM Medication: Versed Amount: 1 mg Route: I.V. Start: 9:02 AM Stop: 9:02 AM Medication: Fentanyl Amount: 25 mcg Route: I.V. Start: 9:06 AM Stop: 9:06 AM Medication: Versed Amount: 0.5 mg Route: I.V. Start: 9:16 AM Stop: 9:16 AM Medication: 0.9% Saline Amount: ml Route: I.V. bolus Start: 9:26 AM Stop: 9:26 AM Medication: Heparin Amount: 1500 units Route: I.V. Start: 9:34 AM Stop: 9:34 AM Medication: Fentanyl Amount: 25 mcg Route: I.V. I, the attending physician, have reviewed and verified all procedure medications. Yes, all medications given per verbal order History/Risk Factors Hypertension: Yes Dyslipidemia: Yes Peripheral Arterial Disease (PAD): No Myocardial Infarction ([place]): No Obesity: Yes Renal Disease: No Tobacco Use: Never Prior Interventions PCI: No CABG: No Valve Surgery: No Report Signatures Finalized by Dr Ryann Boo MD [facility] on 08/07/2023 09:49 PM
[2023-08-07] MEDS: diphenhydrAMINE 50 mg Capsule PO (08:35)
--- NOTE | 2023-08-07 08:51 | PM.HP ---
Providers/Chief Complaint Admitting Physician: Dr OSITO Boo Primary Care Provider: Sánchez Macario Chief Complaint: I35.0 History of Present Illness Janet Calvillo is a 83 year old female with a history of severe aortic valve stenosis, high blood pressure, anemia, recurrent DVT and pulmonary embolism, is presenting with increasing shortness of breath. She also has features of intravascular hemolysis. She requires aortic valve replacement. A right and left heart catheterization with coronary angiogram was recommended to further evaluate her coronary status and decide on further management. Patient denies any fever or chills. No cough. She has a baseline shortness of breath with activities. No orthopnea PND. Review of Systems Narrative: CONSTITUTIONAL: No fever or chills. EYES: No blurring of vision or other visual disturbances lately. ENT: No hoarseness of voice, auditory disturbances or sore throat. CARDIOVASCULAR: As mentioned above. RESPIRATORY: Shortness of breath with exertion. Recurrent PE, on long-term oral anticoagulation GASTROINTESTINAL: No hematemesis or melena. GENITOURINARY: No dysuria or hematuria. INTEGUMENTARY: No skin rashes or history of skin cancer. NEURO: No transient ischemic attacks or amaurosis. PSYCHIATRIC: No history of psychosis or major depression. HEMATOLOGIC: No bleeding disorders or significant anemia. ENDOCRINE: No history of polyuria or polydipsia. MUSCULOSKELETAL: No recent joint pain or swelling. ALLERGY/IMMUNOLOGY: As mentioned above. Medications/Allergies Home Medications Medication Instructions Recorded Confirmed Last Taken Type calcium carb and lactate 200 1 tab PO QAM 12/28/19 08/06/23 08/06/23 06:00 History mg-vitamin D3 6.25 mcg (250 unit) tablet diphenhydramine HCl 25 mg capsule 25 mg PO TID PRN Itching 12/28/19 08/06/23 12/24/22 History (Benadryl) fluoxetine 20 mg capsule (Prozac) 20 mg PO DAILY 12/28/19 08/06/23 08/06/23 06:00 History furosemide 20 mg tablet (Lasix) 20 mg PO DAILY 12/28/19 08/06/23 08/06/23 06:00 History levothyroxine 100 mcg capsule 100 mcg PO DAILY 12/28/19 08/06/23 08/06/23 06:00 History meclizine 25 mg tablet 25 mg PO TID 0908/06/23 12/31/22 History multivitamin 1 tab PO DAILY 12/28/19 08/06/23 08/06/23 06:00 History potassium chloride 10 mEq 10 meq PO DAILY 12/28/19 08/06/23 08/06/23 06:00 History capsule,extended release red yeast rice 600 mg capsule 600 mg PO BID 12/28/19 08/06/23 12/31/22 History tolterodine 4 mg capsule,extended 4 mg PO DAILY 12/28/19 08/06/23 08/06/23 06:00 History release 24 hr vitamin B complex (B 1 tab PO DAILY 12/28/19 08/06/23 08/06/23 06:00 History Complex-Vitamin B12 tablet) denosumab 60 mg/mL subcutaneous 60 mg SUBCUT Q6M 06/26/20 08/06/23 08/06/23 06:00 History syringe (Prolia) cyanocobalamin (vitamin B-12) 2,500 mcg PO DAILY 07/19/21 08/06/23 08/06/23 06:00 History 2,500 mcg tablet vitamin E mixed 1,000 unit capsule 4,000 unit PO DAILY 07/19/21 08/06/23 08/06/23 06:00 History albuterol sulfate 90 mcg/actuation 1 inh inhalation QID PRN shortness 12/05/21 08/06/23 08/06/23 06:00 Rx aerosol inhaler (Ventolin HFA) of breath or wheezing #8.5 grams warfarin 5 mg tablet 10 mg PO DAILY 11/20/22 08/06/23 08/03/23 History lorazepam 1 mg tablet 0.5 - 1 mg (0.5 - 1 x 1 mg) PO Q6H 12/31/22 08/06/23 Unknown Rx PRN Severe Nausea #30 tabs lorazepam 1 mg tablet 0.5 - 1 mg (0.5 - 1 x 1 mg) PO Q6H 12/31/22 08/06/23 08/06/23 06:00 Rx PRN Severe Nausea #30 tabs acetaminophen 325 mg capsule 325 mg PO Q6H #14 caps 01/01/23 08/06/23 08/07/23 01:30 Rx (Tylenol) levalbuterol HCl 0.63 mg/3 mL 0.63 mg (3 mL) inhalation TID PRN 01/16/23 08/06/23 08/06/23 06:00 Rx solution for nebulization shortness of breath or wheezing #75 mL Nebulizer and accessory kit #1 ea 02/05/23 08/06/23 Unknown Rx selenium 50 mcg tablet 50 mcg PO DAILY 02/05/23 08/06/23 08/06/23 06:00 History fluconazole 100 mg tablet 100 mg PO DAILY 5 days #5 tabs 04/09/23 08/06/23 08/06/23 06:00 Rx levofloxacin 500 mg tablet 500 mg PO DAILY 7 days #7 tabs 07/10/23 08/06/23 08/06/23 06:00 Rx lidocaine-prilocaine 2.5 %-2.5 % 1 applic topical ONCE 07/23/23 08/06/23 Unknown History topical cream custom inserts #1 ea 08/06/23 08/06/23 Unknown Rx enoxaparin 100 mg/mL subcutaneous 100 mg SUBCUT DAILY #10 mL 08/06/23 08/06/23 08/06/23 10:30 Rx syringe (Lovenox) Allergies Allergy/AdvReac Type Severity Reaction Status Date / Time adhesive Allergy Unknown unknown Verified 08/06/23 17:04 ciprofloxacin [From Cipro] Allergy Unknown unknown Verified 08/06/23 17:04 erythromycin base Allergy Unknown unknown Verified 08/06/23 17:04 gabapentin [From Neurontin] Allergy Unknown unknown Verified 08/06/23 17:04 hydrocodone [From Vicodin] Allergy Unknown unknown Verified 08/06/23 17:04 Influenza Virus Vaccines Allergy Unknown unknown Verified 08/06/23 17:04 tetanus toxoid, adsorbed Allergy Unknown unknown Verified 08/06/23 17:04 tramadol [From Ultram] Allergy Unknown unknown Verified 08/06/23 17:04 aspirin Allergy stomach Verified 08/06/23 17:04 pain, unbearable egg Allergy unknown Verified 08/06/23 17:04 NSAIDS (Non-Steroidal Allergy heartburn, Verified 08/06/23 17:04 Anti-Inflamma stomach pain Tetanus Vaccines and Toxoid Allergy unknown Verified 08/06/23 17:04 PFSH Acute PFSH: Medical History Asthma Breast cancer Hydronephrosis of right kidney Gross hematuria Osteoporosis Arthritis Aortic stenosis Hypertension DVT (deep venous thrombosis) Pulmonary embolism Obesity Surgical History Hx of tubal ligation Hx of cystoscopy Hx of colonoscopy Age 65 Hx of cholecystectomy H/O: hysterectomy Hx of cataract surgery S/P tonsillectomy Family History Father , AT 92 Congestive heart failure (CHF) Mother , AT 100 of unknown cause Other CAD (coronary artery disease) Cancer Diabetes Hyperlipidemia Hypertension Stroke Denies family history of Psychiatric illness Chronic kidney disease (CKD) Suicide Family history of premature coronary artery disease Lung disease Social History Smoking and tobacco/nicotine status: never used tobacco/nicotine Alcohol intake: never Substance/Drug Use: never Marital status: / Current occupational status: retired and disabled Physical Exam Narrative: GENERAL: The patient is alert and oriented times three. Not in any acute distress. Obese HEENT: No significant pallor, icterus or lymphadenopathy.Oral cavity: There are no mucous membrane lesions. NECK: Trachea appears to be central. No masses noted. No JVD or thyromegaly appreciated. RESPIRATORY: Chest is symmetrical. No intercostals muscle retraction or any accessory muscle activation. There is no chest wall tenderness. Breath sounds are heard bilaterally. No rales or rhonchi heard. No evidence of any consolidation. BREASTS: Deferred. HEART: The heart sounds are normal. No S3 or S4. Ejection stock murmur grade 4 or 6 in the aortic area. No diastolic murmurs. No pericardial rub ABDOMEN: No vessel pulsations or distention. No tenderness. No organomegaly appreciated. Bowel sounds are normally heard. : Deferred. RECTAL: Deferred. LYMPHATIC: No lymphadenopathy noted in the neck. EXTREMITIES: No edema or cyanosis. No clubbing. MUSCULOSKELETAL: No acute joint deformities or swelling SKIN: There are no significant rashes or ecchymosis NEUROPSYCHIATRIC: The patient is alert and oriented x3. Appears to be in a good mood. No tremors or rigidity noted. A&P Assessment and plan (1) Severe aortic valve stenosis: This patient requires aortic valve replacement. To evaluate her coronaries and the right heart pressure, we will go ahead and do a right and left heart catheterization and the coronary angiogram. The intravascular hemolysis could be partly because of the aortic valve stenosis as well. (2) Pulmonary embolism: Patient is on long-term oral anticoagulation. She was bridged with Lovenox. Qualifiers: Acute cor pulmonale presence: without acute cor pulmonale Chronicity: chronic Pulmonary embolism type: unspecified Qualified Code(s): I27.82 - Chronic pulmonary embolism (3) DVT (deep venous thrombosis): As mentioned above Qualifiers: Affected thrombotic vein of extremity: unspecified lower extremity proximal vein Chronicity: chronic DVT location: lower extremity Laterality: bilateral Qualified Code(s): I82.5Y3 - Chronic embolism and thrombosis of unspecified deep veins of proximal lower extremity, bilateral (4) Hypertension: Currently normotensive. Qualifiers: Hypertension type: essential hypertension Qualified Code(s): I10 - Essential (primary) hypertension (5) Dyslipidemia: Continue on the current medications. 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 She is on chemo and immunotherapy. Being followed by the oncology. Qualifiers: Breast location: nipple Estrogen receptor status: negative Patient sex: female Laterality: left Qualified Code(s): C50.012 - Malignant neoplasm of nipple and areola, left female breast; Z17.1 - Estrogen receptor negative status [ER-] (7) Iron deficiency anemia: Part of it could be due to intravascular hemolysis. Etiology, possible aortic valve stenosis Qualifiers: Iron deficiency anemia type: other iron deficiency Qualified Code(s): D50.8 - Other iron deficiency anemias Plan For further evaluation of the patient's her cardiovascular status, she requires a right and left heart catheterization with a coronary angiogram. The risk of bleeding, hematoma, vascular injury, myocardial infarction, myocardial perforation, malignant cardiac arrhythmias ,CVA, renal failure and other concomitant complications were explained in detail. Patient understood this well and consented to proceed. Based on the angiogram findings, further recommendations will be made. Attestations Medical Necessity Statement*: Patient may require overnight stay. Coding Level of Care Code 31356 Diagnoses Severe aortic valve stenosis I35.0 Chronic pulmonary embolism without acute cor pulmonale, unspecified pulmonary embolism type I27.82 Acute cor pulmonale presence: without acute cor pulmonale Chronicity: chronic Pulmonary embolism type: unspecified Chronic deep vein thrombosis (DVT) of proximal vein of both lower extremities I82.5Y3 Affected thrombotic vein of extremity: unspecified lower extremity proximal vein Chronicity: chronic DVT location: lower extremity Laterality: bilateral Essential hypertension I10 Hypertension type: essential hypertension Dyslipidemia E78.5 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
--- NOTE | 2023-08-07 08:56 | W.PM.OPSUD ---
Surgery/Procedure H&P Update DATE OF PROCEDURE: August 07, 2023 DATE H&P PERFORMED: 08/07/23 H&P UPDATE INFORMATION: I have reviewed H&P completed within last 30 days, I have examined patient prior to procedure and No changes to prior documentation PREOP DIAGNOSIS: Severe aortic valve stenosis/anemia PRIMARY INDICATION FOR PROCEDURE: Severe aortic valve stenosis/recurrent PE/DVT PLANNED PROCEDURE: Operation Date: 08/07/23 07:50 Proposed Procedures p Cardiac Catheterization(Bilateral) - Ryann Boo MD PATIENT REASSESSED PRIOR TO SEDATION, WITH NO CHANGE NOTED: Yes PHYSICAL EXAM: alert, oriented x 3, clear to auscultation bilaterally and regular rate & rhythm AIRWAY EVAL/ANESTHESIA PLAN: normal airway, see other exam findings, ASA III, Monitored Anesthesia, Local Anesthesia, Risks, benefits & alternatives of sedation and/or procedure discussed and Patient agrees to continue as planned
[2023-08-07 10:06] LABS: Blood Gas Operator Identificat BROMA
[2023-08-07 10:07] LABS: Arterial Blood Gas Hematocrit 11.2 % (37-47); Blood Gas Sample Site RV; Carboxyhemoglobin 1.7 %THgb (0.4-20.1); Total Hemoglobin 3.6 g/dL (12-16)
[2023-08-07 10:08] LABS: Methemoglobin 1.8 % (0.4-1.5)
[2023-08-07 12:59] LABS: Partial Thromboplastin Time 41.2 SECONDS (23.9-36.7)
[2023-08-07 14:35] LABS: Arterial Blood Gas Hematocrit 17.7 % (37-47); Blood Gas Sample Site RA; Total Hemoglobin 5.8 g/dL (12-16)
[2023-08-07 14:36] LABS: Blood Gas Operator Identificat BROMA; Carboxyhemoglobin 1.5 %THgb (0.4-20.1); HGB O2 Sat 59.2 % (95-100); Methemoglobin 1.4 % (0.4-1.5)
[2023-08-07 14:37] LABS: Blood Gas Sample Site AO; Carboxyhemoglobin 0.7 %THgb (0.4-20.1); HGB O2 Sat 92.6 % (95-100); Methemoglobin 0.6 % (0.4-1.5); Total Hemoglobin 13.4 g/dL (12-16)
[2023-08-07 14:38] LABS: Arterial Blood Gas Hematocrit 42.2 % (37-47); Blood Gas Operator Identificat BROMA; Blood Gas Sample Site PA
[2023-08-07 14:39] LABS: Carboxyhemoglobin 1.3 %THgb (0.4-20.1); HGB O2 Sat 55.6 % (95-100); Methemoglobin 0.7 % (0.4-1.5); Total Hemoglobin 13.8 g/dL (12-16)
[2023-08-07] MEDS: acetaminophen 325 mg Tablet 650 MG PO (15:42)
[2023-08-07] MEDS: meclizine 25 mg tablet PO ×2 (15:42→21:32)
[2023-08-07] MEDS: acetaminophen 325 mg Tablet PO (15:43)
--- NOTE | 2023-08-07 18:05 | PC.NURSE ---
Notified Dr. Boo about pt's pressures being soft throughout the afternoon. Informed him that the pt and her sister acknowledge her BP being soft often and they didn't seem too concerned with most of the pressures that we have been getting. Dr. Boo determined that we would keep the pt overnight and increase her IVF's to 125ml/hr. Also, notified Dr. Boo that the pt had a diarrhea stool during this shift and was concerned it may be C-Diff and that the pt stated that she has been having watery stools since Friday of this week.
[2023-08-07 19:09] LABS: C.Diff PCR (Lab) NEGATIVE (Negative)
--- NOTE | 2023-08-07 19:20 | PC.NURSE ---
Report given to Maegan Duarte RN
--- NOTE | 2023-08-07 22:00 | PC.NURSE ---
Bedrest completed at 8pm. Patient was assisted OOB to the commode, is still complaining of having watery loose stools. After bedchange assisted patient back into bed. The patient did have some weakness while standing being cleaned after using the commode but after sitting back down for a minute was able to stand to pivot to get back in bed. Right groin site dressing is dry and intact, no hematoma present. Pedal pulses are palpable bilaterally. The patient denies any pain.
[2023-08-07] MEDS: sodium chloride 0.9% 1,000 ML 125 ML IV (22:59)
[2023-08-08] MEDS: acetaminophen 325 mg Tablet 650 MG PO (03:44)
[2023-08-08 04:00] VITALS: BP 110/63; PULSE 96; RESP 22; TEMP 36.6; O2SAT 97
[2023-08-08 04:50] VITALS: PULSE 95
[2023-08-08] MEDS: sodium chloride 0.9% 1,000 ML 125 ML IV (06:32)
[2023-08-08] MEDS: calcium carb-vit d 600mg/400unit 1 Tablet 1 EACH PO (06:38)
[2023-08-08 07:43] LABS: Alveolar-Arterial Oxygen Gradi 4.7 mmHg (5-10); Alveolar-Arterial Oxygen Gradi 8.8 mmHg (5-10); Alveolar-Arterial Oxygen Gradi 9.2 mmHg (5-10); Alveolar-Arterial Oxygen Gradi 9.3 mmHg (5-10); Blood Gas Operator Identificat BROMA; Blood Gas Sample Type Arterial; HGB O2 Sat 60.9 % (95-100)
[2023-08-08 07:49] LABS: Blood Gas Drawn By GEOAC
[2023-08-08 07:50] LABS: Blood Gas Drawn By GEOAC
[2023-08-08 08:00] VITALS: BP 103/56; PULSE 92; RESP 27; TEMP 36.6; O2SAT 94
--- NOTE | 2023-08-08 08:55 | P.PN_ITS ---
Subjective Subjective: Final progress note Patient had the cardiac catheterization yesterday. She was found to have no significant obstructive coronary artery disease. Her PA pressures were within normal limits. She remained stable throughout the hospital course. Her blood pressure was soft immediately after the procedure. Then it slightly improved. She did not have any chest pain or any specific symptoms. No hematoma bleeding from the arterial puncture site. Medications: Medication Review Details: Current Medications Acetaminophen (Acetaminophen 325 Mg Tablet) 325 mg PO Q6H [facility] Last Admin: 08/08/23 03:50 Dose: Not Given Acetaminophen (Acetaminophen 325 Mg Tablet) 650 mg PO Q6H PRN PRN Reason: MILD PAIN Last Admin: 08/08/23 03:44 Dose: 650 mg Al Hydrox/Mg Hydrox/Simethicone (Nynw-Fid-Ucanrvcje-Jacob 30 Ml Udc) 30 ml PO Q15M PRN PRN Reason: INDIGESTION Atropine Sulfate (Atropine 1 Mg/Ml Sdv 1 Ml) 0.5 mg IVP PRN PRN PRN Reason: Symptomatic bradycardia Calcium Carbonate (Calcium Carb-Vit D 600mg/400unit 1 Tablet) 1 each PO QAM [facility] Last Admin: 08/08/23 06:38 Dose: 1 each Cyanocobalamin (Cyanocobalamin 1,000 Mcg Tablet) 2,500 mcg PO DAILY [facility] Diphenhydramine HCl (Diphenhydramine 25 Mg Capsule) 25 mg PO TID PRN PRN Reason: Itching Fluoxetine HCl (Fluoxetine 20 Mg Capsule) 20 mg PO DAILY [facility] Sodium Chloride (Sodium Chloride 0.9%) 1,000 mls @ 125 mls/hr IV .Q8H [facility] Last Admin: 08/08/23 06:32 Dose: 125 mls/hr Levalbuterol HCl (Levalbuterol 0.63 Mg/3 Ml Neb) 0.63 mg INHALATION TID PRN PRN Reason: shortness of breath or wheezing Levothyroxine Sodium (Levothyroxine 112 Mcg Tablet) 112 mcg PO DAILY [facility] Lorazepam (Lorazepam 1 Mg Tablet) 0.5 - 1 mg PO Q6H PRN PRN Reason: Severe Nausea Magnesium Hydroxide (Magnesium Hydroxide 30 Ml Udc) 30 ml PO DAILY PRN PRN Reason: CONSTIPATION Meclizine HCl (Meclizine 25 Mg Tablet) 25 mg PO TID [facility] Last Admin: 08/07/23 21:32 Dose: 25 mg Multivitamins Therapeutic (Multivitamin Therapeutic Tablet) 1 tab PO DAILY [facility] Naloxone HCl (Naloxone 0.4 Mg/Ml Sdv) 0.1 mg IVP Q2M PRN PRN Reason: RESPIRATORY RATE < 8/MIN Nitroglycerin (Nitroglycerin 0.4 Mg Sublingual Tablet) 0.4 mg SUBLINGUAL Q5M PRN PRN Reason: CHEST PAIN Non-Formulary Medication (Red Yeast Rice) 600 mg PO BID [facility] Non-Formulary Medication (Selenium) 50 mcg PO DAILY [facility] Non-Formulary Medication (Tolterodine) 4 mg PO DAILY [facility] Non-Formulary Medication (Vitamin B Complex [B Complex-Vitamin B12]) 1 tab PO DAILY [facility] Non-Formulary Medication (Vitamin E Mixed) 4,000 unit PO DAILY [facility] Potassium Chloride (Potassium Chloride Er 10 Meq Tablet) 10 meq PO DAILY [facility] Temazepam (Temazepam 15 Mg Capsule) 15 mg PO BEDTIME PRN PRN Reason: INSOMNIA Vitals/I&O/Wt Last Vital Signs Temp 97.8 F 08/08/23 08:00 Pulse 92 08/08/23 08:00 Resp 27 H 08/08/23 08:00 BP 103/56 08/08/23 08:00 Pulse Ox 94 08/08/23 08:00 O2 Del Method Nasal Cannula 08/08/23 04:00 O2 Flow Rate 2 08/08/23 04:00 08/07/23 08/08/23 08/08/23 22:59 06:59 14:59 Intake Total 240 / 240 943.75 / 1183.75 Output Total 150 / 150 Balance 240 / 240 943.75 / 1183.75 -150 / -150 Weight last 48 hrs Weight 242 lb Physical Exam Narrative: GENERAL: The patient is alert and oriented times three. Not in any acute distress. Obese HEENT: No significant pallor, icterus or lymphadenopathy.Oral cavity: There are no mucous membrane lesions. NECK: Trachea appears to be central. No masses noted. No JVD or thyromegaly appreciated. RESPIRATORY: Chest is symmetrical. No intercostals muscle retraction or any accessory muscle activation. There is no chest wall tenderness. Breath sounds are heard bilaterally. No rales or rhonchi heard. No evidence of any consolidation. BREASTS: Deferred. HEART: The heart sounds are normal. No S3 or S4. Ejection stock murmur grade 4 or 6 in the aortic area. No diastolic murmurs. No pericardial rub ABDOMEN: No vessel pulsations or distention. No tenderness. No organomegaly appreciated. Bowel sounds are normally heard. : Deferred. RECTAL: Deferred. LYMPHATIC: No lymphadenopathy noted in the neck. EXTREMITIES: No hematoma bleeding from the arterial/venous puncture sites. MUSCULOSKELETAL: No acute joint deformities or swelling SKIN: There are no significant rashes or ecchymosis NEUROPSYCHIATRIC: The patient is alert and oriented x3. Appears to be in a good mood. No tremors or rigidity noted. A&P Assessment and plan (1) Severe aortic valve stenosis: This patient requires aortic valve replacement. To evaluate her coronaries and the right heart pressure, we will go ahead and do a right and left heart catheterization and the coronary angiogram. The intravascular hemolysis could be partly because of the aortic valve stenosis as well. Cardiac catheterization was performed yesterday. No significant obstructive coronary artery disease. Normal PA pressures. Patient requires aortic valve replacement (2) Pulmonary embolism: Patient is on long-term oral anticoagulation. She may go back on the Coumadin. Continue the bridging anticoagulation this evening Qualifiers: Pulmonary embolism type: unspecified Chronicity: chronic Acute cor pulmonale presence: without acute cor pulmonale Qualified Code(s): I27.82 - Chronic pulmonary embolism (3) DVT (deep venous thrombosis): As mentioned above Qualifiers: DVT location: lower extremity Affected thrombotic vein of extremity: unspecified lower extremity proximal vein Chronicity: chronic Laterality: bilateral Qualified Code(s): I82.5Y3 - Chronic embolism and thrombosis of unspecified deep veins of proximal lower extremity, bilateral (4) Hypertension: Currently normotensive. Qualifiers: Hypertension type: essential hypertension Qualified Code(s): I10 - Essential (primary) hypertension (5) Dyslipidemia: Continue on the current medications. 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 She is on chemo and immunotherapy. Being followed by the oncology. Follow-up management as per oncology Qualifiers: Breast location: nipple Estrogen receptor status: negative Patient sex: female Laterality: left Qualified Code(s): C50.012 - Malignant neoplasm of nipple and areola, left female breast; Z17.1 - Estrogen receptor negative status [ER-] (7) Iron deficiency anemia: Part of it could be due to intravascular hemolysis. Etiology, possible aortic valve stenosis Qualifiers: Iron deficiency anemia type: other iron deficiency Qualified Code(s): D50.8 - Other iron deficiency anemias Plan Discharge home today. Discussed with Dr. [facility] at the [facility] to [facility] TAVR Patient will be seen by Dr. Lance next Friday to discuss about the valve intervention. Restart the warfarin today May start on Lovenox injection tonight-100 mg every 12 hours till Friday Management of the diarrhea as per the oncology service Attestations Medical Necessity Statement*: Discharge home today Coding Level of Care Code 17766 Diagnoses Severe aortic valve stenosis I35.0 Chronic pulmonary embolism without acute cor pulmonale, unspecified pulmonary embolism type I27.82 Pulmonary embolism type: unspecified Chronicity: chronic Acute cor pulmonale presence: without acute cor pulmonale Chronic deep vein thrombosis (DVT) of proximal vein of both lower extremities I82.5Y3 DVT location: lower extremity Affected thrombotic vein of extremity: unspecified lower extremity proximal vein Chronicity: chronic Laterality: bilateral Essential hypertension I10 Hypertension type: essential hypertension Dyslipidemia E78.5 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
[2023-08-08 11:06] VITALS: PULSE 95; RESP 18; O2SAT 92
[2023-08-08] MEDS: acetaminophen 325 mg Tablet PO (11:11)
[2023-08-08] MEDS: levothyroxine 112 mcg Tablet PO (11:11)
[2023-08-08] MEDS: potassium chloride ER 10 mEq Tablet PO (11:12)
[2023-08-08] MEDS: meclizine 25 mg tablet PO ×2 (11:12→14:22)
[2023-08-08] MEDS: cyanocobalamin 1,000 mcg Tablet 2500 MCG PO (11:13)
[2023-08-08] MEDS: fluoxetine 20 mg Capsule PO (11:13)
[2023-08-08] MEDS: multivitamin therapeutic Tablet 1 TAB PO (11:13)
[2023-08-08 12:00] VITALS: BP 92/46; PULSE 94; TEMP 36.7; O2SAT 96
--- NOTE | 2023-08-08 15:01 | PC.NURSE ---
Discharge Note Patient discharged to [home] via [w/c to POV] accompanied by [friend]. Discharge instructions reviewed with patient and/or patient care representative. Mobile pharmacy medications and/or prescriptions provided. Belongings/home medications returned.
== END 2023-08-08 15:02 | disposition home or self-care (01) ==
LOC: CCL 07:33 → CSU 11:21
PROVIDERS: PCP Family Medicine; Visit Provider Internal Medicine Cardiovascular Disease
DX: I35.0 Nonrheumatic aortic (valve) stenosis (principal); I27.82 Chronic pulmonary embolism; I10 Essential (primary) hypertension; E78.5 Hyperlipidemia, unspecified; C50.012 Malignant neoplasm of nipple and areola, left female breast; Z17.1 Estrogen receptor negative status [ER-]; D50.8 Other iron deficiency anemias; Z79.01 Long term (current) use of anticoagulants; Z86.718 Personal history of other venous thrombosis and embolism; E66.9 Obesity, unspecified; Z68.39 Body mass index [BMI] 39.0-39.9, adult
CPT/HCPCS: 36415; 82810; 85347; 85730; 87493; 93456; 96374; 96375; 99152; 99153; C1751; C1769; C1887; C1894; J1642; J1644; J2250; J3010; J7030; J8597; Q9967

== ENCOUNTER 2023-08-11 15:35 | Oncology outpatient (recurring) (ONCR) | payer MEDICARE, MEDICAID, SELFPAY | END 2023-08-19 23:59 | disposition home or self-care (01) | PROVIDERS: PCP Family Medicine; Visit Provider Internal Medicine Medical Oncology | DX: Z51.11 Encounter for antineoplastic chemotherapy (principal); C50.412 Malignant neoplasm of upper-outer quadrant of left female breast; Z79.01 Long term (current) use of anticoagulants; Z53.9 Procedure and treatment not carried out, unspecified reason; Z79.899 Other long term (current) drug therapy | CPT/HCPCS: 99213 ==

== ENCOUNTER → 2023-08-13 15:04 | Outpatient (BNVA) | payer MEDICARE, MEDICAID, SELFPAY | PROVIDERS: PCP Family Medicine; Visit Provider Internal Medicine Cardiovascular Disease | DX: R06.02 Shortness of breath (principal); I48.91 Unspecified atrial fibrillation | CPT/HCPCS: 36415; 80048; 83880; 85610; 99214 ==

== ENCOUNTER 2023-08-30 19:09 | Emergency (ER) | payer MEDICARE, MEDICAID, SELFPAY ==
[2023-08-30 19:13] VITALS: BP 100/71; PULSE 100; RESP 18; TEMP 37.1; O2SAT 97; BMI 40.8
[2023-08-30 19:25] VITALS: BP 100/71; PULSE 100; RESP 18; O2SAT 93
--- NOTE | 2023-08-30 19:26 | W.ED.NAVMDI ---
HPI - Nausea/Vomiting/Diarrhea General: Chief complaint: Nausea/Vomiting/Diarrhea Stated complaint: N/V Time Seen by Provider: 08/30/23 19:26 Source: patient and EMS Limitations: no limitations History of Present Illness: 83-year-old female comes in for nausea vomiting diarrhea going on for 3 to 4 days and trying to treat at home without success. She last had chemotherapy about 2 to 3 weeks ago. Currently on a pulse to hold for heart valve replacement for her aortic stenosis. Patient reports no known fever but just getting weak from the inability to keep things down. She reports if she eats or drinks that either comes right back up or she instantly has diarrhea. No new medication changes. Review of Systems General: Reports: 10 or more systems reviewed and unremarkable except in HPI and below PFSH ED PFSH: Medical History Asthma Breast cancer Hydronephrosis of right kidney Gross hematuria Osteoporosis Arthritis Aortic stenosis Hypertension DVT (deep venous thrombosis) Pulmonary embolism Obesity Surgical History Hx of tubal ligation Hx of cystoscopy Hx of colonoscopy Age 65 Hx of cholecystectomy H/O: hysterectomy Hx of cataract surgery S/P tonsillectomy Family History Father , AT 92 Congestive heart failure (CHF) Mother , AT 100 of unknown cause Other CAD (coronary artery disease) Cancer Diabetes Hyperlipidemia Hypertension Stroke Denies family history of Psychiatric illness Chronic kidney disease (CKD) Suicide Family history of premature coronary artery disease Lung disease Social History Smoking and tobacco/nicotine status: never used tobacco/nicotine Alcohol intake: never Substance/Drug Use: never Marital status: / Current occupational status: retired and disabled Physical Exam Const: COMMON NORMALS: no acute distress, average body habitus, patient oriented x3, healthy appearing, alert and well nourished GENERAL APPEARANCE: well kempt and well developed HENMT: COMMON NORMALS: normocephalic, atraumatic, external ears normal and moist oral mucous membranes HEAD & SCALP: normocephalic and atraumatic EXTERNAL EAR: Yes external ears normal Eye: COMMON NORMALS: Equal, round and reactive pupils present, EOMs intact bilaterally and conjunctivae normal CONJUNCTIVA: Yes conjunctivae normal PUPIL: Yes Equal, round and reactive pupils present Neck/C-Spine: COMMON NORMALS: full ROM, no lymphadenopathy and supple Chest: CHEST: Yes Symmetrical chest wall rise and No Surgical scars present (Chest) Resp: COMMON NORMALS: normal respiratory effort, No retractions, No use of accessory muscles and clear to auscultation bilaterally AUSCULTATION: clear to auscultation bilaterally Cardio: COMMON NORMALS: regular rhythm, S1 normal heart sound present, S2 normal heart sound present, No gallops present (Cardio), No clicks present (Cardio), No murmurs present (Cardio) and No rub (Cardio) RATE: tachycardic RHYTHM: regular rhythm HEART SOUNDS: S1 normal heart sound present and S2 normal heart sound present PERIPHERAL PULSES: other (Radial pulses 2+ and symmetric) GI: COMMON NORMALS: Soft to palpation and no masses INSPECTION: No abdominal distension PALPATION: Yes Soft to palpation, Yes Tenderness to palpation present (GI) Details: LLQ, No Guarding due to palpation present (GI), No Rigid due to palpation and No Rebound tenderness present : COMMON NORMALS: Yes no CVA tenderness BLADDER/KIDNEY EXAM: Yes no CVA tenderness Back/Pelvis: COMMON NORMALS: no CVA tenderness Extremity: COMMON NORMALS: normal to inspection, full ROM, capillary refill normal and no clubbing, cyanosis or edema Neuro: COMMON NORMALS: patient oriented x3 SENSORIUM/ORIENTATION: Yes alert Psych: APPEARANCE: Yes well kempt Skin: COMMON NORMALS: no rashes or lesions noted, no wounds, turgor normal and no jaundice GENERAL SKIN EXAM: no rashes or lesions noted and turgor normal Course Vital Signs: Vital signs: Vital Signs Temperature 98.7 F 08/30/23 19:13 Pulse Rate 101 H 08/30/23 22:19 Respiratory Rate 18 08/30/23 22:19 Blood Pressure 100/71 08/30/23 19:25 Pulse Oximetry 89 L 08/30/23 22:19 Oxygen Delivery Me thod Room Air 08/30/23 22:19 MDM - Nausea/Vomiting/Diarrhea Medical Decision Making Patient seen for nausea vomiting diarrhea, immunocompromise. Patient takes warfarin so INR was checked as well INR was found to be elevated at 5. Lactic thankfully was negative. White count normal at 8.3. H&H stable. Electrolytes had some mild abnormalities but no signs of PADMINI thankfully at this time. Patient was having bouts of hypoxia probably related to some sleep apnea but out of precaution with her risk factors a ABG was done thankfully pO2 was appropriate for patient's baseline status and safe for discharge. Patient expresses understanding of the care plan. Will prescribe Zofran ODT and Lomotil. On a personal review of the CT scan I had no acute abnormality, radiology read reports the same. Chest x-ray is also personally reviewed and I saw nothing acute other than left hyperinflation. See radiology read for further details. Urine has some sediment and consistency with dehydration but otherwise unremarkable no infection. Lab Data 08/30/23 19:32 08/30/23 19:32 Radiology Impressions Abdomen/Pelvis CT 08/30/23 19:37 IMPRESSION: 1. Negative for acute inflammatory process in the abdomen or pelvis. 2. Small hiatal hernia. 3. Hepatic steatosis. 4. Cholecystectomy. Chest X-Ray 08/30/23 22:52 IMPRESSION: 1. Negative for infiltrate 2. Emphysematous changes. 3. Cardiomegaly. Laboratory Results WBC 8.31 10^3/uL (3.29-11.43) 08/30/23 19:32 RBC 3.04 10^6/uL (3.85-5.65) L 08/30/23 19:32 Hgb 10.50 g/dL (11.27-16.99) L 08/30/23 19:32 Hct 33.5 % (36-47) L 08/30/23 19:32 MCV 110.2 fl (85-98) H 08/30/23 19:32 MCH 34.5 pg (27-33) H 08/30/23 19:32 MCHC 31.3 g/dL (30-55) 08/30/23 19:32 RDW 15.6 % (12.1-15.1) H 08/30/23 19:32 Plt Count 210 10^3/cmm (157-399) 08/30/23 19:32 MPV 9.6 fL (7.4-10.4) 08/30/23 19:32 Neut % (Auto) 70.0 % 08/30/23 19:32 Lymph % (Auto) 7.5 % 08/30/23 19:32 [place] % (Auto) 12.9 % 08/30/23 19:32 Eos % (Auto) 8.9 % 08/30/23 19:32 Baso % (Auto) 0.6 % 08/30/23 19:32 Neut # (Auto) 5.82 10^3/uL (1.8-7.7) 08/30/23 19:32 Lymph # (Auto) 0.6 10^3/uL (0.8-4.8) L 08/30/23 19:32 [place] # (Auto) 1.1 10^3/uL (0.2-0.9) H 08/30/23 19:32 Eos # (Auto) 0.7 10^3/uL (0.0-0.8) 08/30/23 19: Baso # (Auto) 0.1 10^3/uL (0.0-0.1) 08/30/23 19: Nucleated RBC % (auto) 0 % 08/30/23: Nucleated RBCs # 0.0 /100WBC 08/30/23 19:32 PT 50.20 SECONDS (12.1-14.9) H 08/30/23 19:32 INR 5.24 (0.8-1.2) H* 08/30/23 19:32 APTT 92.2 SECONDS (23.9-36.7) H 08/30/23 19:32 Specimen Type Arterial 08/30/23 23:08 Sample Site Radial, right 08/30/23 23:08 ABG pH 7.43 (7.35-7.45) 08/30/23 23:08 ABG pCO2 32.2 mmHg (35-45) L 08/30/23 23:08 ABG pO2 72.6 mmHg (80.0-100.0) L 08/30/23 23:08 ABG PO2/FiO2 Ratio 0 08/30/23 23:08 ABG HCO3 21.5 mmol/L (22-26) L 08/30/23 23:08 ABG Base Excess -2.2 mmol/L (-2.0-2.0) L 08/30/23 23:08 Maurice Test Pos 08/30/23 23:08 Hematocrit 30.0 % (37-47) L 08/30/23 23:08 O2 Delivery Device None 08/30/23 23:08 FiO2 21.0 % 08/30/23 23:08 Inventory Specialist Manager ID Earnestinewe 08/30/23 23:08 Sodium 134 mmol/L (136-145) L 08/30/23 19:32 Potassium 3.3 mmol/L (3.5-5.1) L 08/30/23 19:32 Chloride 101 mmol/L (98-107) 08/30/23 19:32 Carbon Dioxide 24 mmol/L (22-29) 08/30/23 19:32 Anion Gap 12.3 (5-19) 08/30/23 19:32 BUN 7 mg/dL (8-23) L 08/30/23 19:32 Creatinine 0.8 mg/dL (0.5-0.9) 08/30/23 19:32 GFR Calculation Not Reportable 08/30/23 19:32 Glucose 123 mg/dL (65-115) H 08/30/23 19:32 Calculated Osmolality 277 mOsm/kg (285-295) L 08/30/23 19:32 Lactic Acid 1.1 mmol/L (0.5-2.2) 08/30/23 19:32 Calcium 7.9 mg/dL (8.5-10.5) L 08/30/23 19:32 Total Bilirubin 0.3 mg/dL (0.15-1.2) 08/30/23 19:32 AST 61 U/L (0-32) H 08/30/23 19:32 ALT 62 U/L (0-33) H 08/30/23 19:32 Alkaline Phosphatase 72 U/L (35-105) 08/30/23 19:32 Total Protein 6.1 g/dL (6.6-8.7) L 08/30/23 19:32 Albumin 3.2 g/dL (3.5-5.2) L 08/30/23 19:32 Globulin 2.9 g/dL (1.3-4.6) 08/30/23 19:32 Urine Color Yellow (Yellow) 08/30/23 22:18 Urine Appearance Hazy (CLEAR) A 08/30/23 22:18 Urine pH 5 (5-7) 08/30/23 22:18 Ur Specific [place] 1.005 (1.005-1.030) 08/30/23 22:18 Urine Protein 1+ (Negative) H 08/30/23 22:18 Urine Glucose (UA) Norm (Normal) 08/30/23 22:18 Urine Ketones 1+ (Negative) H 08/30/23 22:18 Urine Blood Neg (Negative) 08/30/23 22:18 Urine Nitrate Negative (Negative) 08/30/23 22:18 Urine Bilirubin 1+ (Negative) H 08/30/23 22:18 Urine Urobilinogen Neg mg/dL (Negative) 08/30/23 22:18 Ur Leukocyte Esterase Negative (Negative) 08/30/23 22:18 Urine RBC 0-4 /hpf (0-2) H 08/30/23 22:18 Urine WBC 5-10 /hpf (0-5) H 08/30/23 22:18 Ur Squamous Epith Cells 5-10 /hpf (0-5) H 08/30/23 22:18 Amorphous Sediment Not Reportable 08/30/23 22:18 Urine Bacteria Trace /hpf (NONE) 08/30/23 22:18 All radiology interpretation(s) finalized by discharge Discharge Plan Discharge Patient Disposition: Home Clinical Impression: Gastroenteritis and colitis, viral, Dehydration Condition: Stable Prescriptions: New ondansetron 4 mg tablet,disintegrating 4 mg PO Q6H PRN (Reason: nausea and vomiting) Qty: 20 0RF Lomotil 2.5-0.025 mg tablet 1 tab PO BID PRN (Reason: diarrhea) Qty: 10 0RF No Action diphenhydramine HCl [Benadryl] 25 mg capsule 25 mg PO TID PRN (Reason: Itching) vitamin B complex [B Complex-Vitamin B12] Tablet 1 tab PO DAILY calcium carb,lactat-vitamin D3 200 mg calcium -250 unit tablet 1 tab PO QAM meclizine 25 mg tablet 25 mg PO TID multivitamin Tablet 1 tab PO DAILY tolterodine 4 mg capsule,extended release 24hr 4 mg PO DAILY fluoxetine [Prozac] 20 mg capsule 20 mg PO DAILY levothyroxine 100 mcg capsule 100 mcg PO DAILY red yeast rice 600 mg capsule 600 mg PO BID Rx Instructions: give with meal/snack furosemide [Lasix] 20 mg tablet 20 mg PO DAILY potassium chloride 10 mEq capsule, extended release 10 meq PO DAILY Prolia 60 mg/mL syringe 60 mg SUBCUT Q6M warfarin 5 mg tablet 10 mg PO DAILY Rx Instructions: per INR results cyanocobalamin (vitamin B-12) 2,500 mcg tablet 2,500 mcg PO DAILY vitamin E mixed 1,000 unit capsule 4,000 unit PO DAILY albuterol sulfate [Ventolin HFA] 90 mcg/actuation HFA aerosol inhaler 1 inh inhalation QID PRN (Reason: shortness of breath or wheezing) Qty: 8.5 3RF selenium 50 mcg tablet 50 mcg PO DAILY (DME) Nebulizer and accessory kit See Rx Instructions .Route .MEDSUPPLY Qty: 1 0RF Rx Instructions: As directed fluconazole 100 mg tablet 100 mg PO DAILY 5 Days Qty: 5 0RF (DME) custom inserts See Rx Instructions .Route .MEDSUPPLY Qty: 1 0RF Rx Instructions: As directed lidocaine-prilocaine 2.5-2.5 % cream 1 applic topical ONCE levalbuterol HCl 0.63 mg/3 mL solution for nebulization 0.63 mg inhalation TID PRN (Reason: shortness of breath or wheezing) Qty: 75 2RF Rx Instructions: DNExceed 3 doses/24h levofloxacin 500 mg tablet 500 mg PO DAILY 7 Days Qty: 7 0RF enoxaparin [Lovenox] 100 mg/mL syringe 100 mg SUBCUT DAILY Qty: 10 0RF Rx Instructions: 100 mg today prednisone 10 mg tablet 20 mg PO BID Qty: 30 0RF acetaminophen [Tylenol] 325 mg capsule 325 mg PO Q6H Qty: 14 0RF lorazepam 1 mg tablet 0.5 - 1 mg PO Q6H PRN (Reason: Severe Nausea) Qty: 30 3RF lorazepam 1 mg tablet 0.5 - 1 mg PO Q6H PRN (Reason: Severe Nausea) Qty: 30 3RF Discharge Orders: Discharge ED (Routine); Ordered 08/30/23 Ordered By: Elbert Khan Referrals: Sánchez Macario [Primary Care Provider] - Discharge Diet: Advance as tolerated and Full LIquid Discharge Activity: Resume usual activity Activity Restrictions/Additional Instructions: Do not resume your warfarin until Friday. Have your INR checked Friday or Friday. Preferably have it checked before restarting the warfarin. The INR level was 5.24 today. Continue follow-up with your primary care and other members of your care team. Return to the ER if not improving. Coding Level of Care Code ED Shop Clerk for Malu Cooper
--- NOTE | 2023-08-30 19:37 | CTR_ITS ---
PROCEDURE INFORMATION: Exam: CT Abdomen And Pelvis With Contrast Exam date and time: 08/30/2023 7:50 PM Age: 83 years old Clinical indication: Nausea and vomiting; Abdominal pain; Localized; Left lower quadrant (llq); Prior surgery; Surgery date: 6+ months; Surgery type: Chest port. Gb. Hysterectomy. Tubal. Patient HX: C/O n/v with llq pain. History of breast cancer. ; Additional info: Tachycardia, llq tenderness TECHNIQUE: Imaging protocol: Computed tomography of the abdomen and pelvis with contrast. Radiation optimization: All CT scans at this facility use at least one of these dose optimization techniques: automated exposure control; mA and/or kV adjustment per patient size (includes targeted exams where dose is matched to clinical indication); or iterative reconstruction. Contrast material: OMNI 350; Contrast volume: 100 ml; Contrast route: INTRAVENOUS (IV); COMPARISON: CT abdomen pelvis wo/w [id number] 09/04/2021 8:26 AM RADIATION DOSE METRICS: Total DLP (mGy-cm): 1063.62 FINDINGS: Diaphragm: Small hiatal hernia. Liver: Hepatic steatosis. Gallbladder and bile ducts: Cholecystectomy. Pancreas: Normal. No ductal dilation. Spleen: Normal. No splenomegaly. Adrenal glands: Normal. No mass. Kidneys and ureters: Normal. No hydronephrosis. Stomach and bowel: Unremarkable. No obstruction. No mucosal thickening. Appendix: No evidence of appendicitis. Intraperitoneal space: Unremarkable. No free air. No significant fluid collection. Vasculature: Unremarkable. No abdominal aortic aneurysm. Lymph nodes: Unremarkable. No enlarged lymph nodes. Urinary bladder: Unremarkable as visualized. Reproductive: Unremarkable as visualized. Bones/joints: Unremarkable. No acute fracture. Soft tissues: Unremarkable. CT/CT abdomen pelvis w con* [id number] IMPRESSION: 1. Negative for acute inflammatory process in the abdomen or pelvis. 2. Small hiatal hernia. 3. Hepatic steatosis. 4. Cholecystectomy.
[2023-08-30 19:46] LABS: Basophils # 0.1 10^3/uL (0.0-0.1); Basophils % 0.6 %; Eosinophils # 0.7 10^3/uL (0.0-0.8); Eosinophils % 8.9 %; Hematocrit 33.5 % (36-47); Lymphocytes # 0.6 10^3/uL (0.8-4.8); Lymphocytes % 7.5 %; Mean Corpuscular HGB Conc 31.3 g/dL (30-55); Mean Corpuscular Hemoglobin 34.5 pg (27-33); Mean Corpuscular Volume 110.2 fl (85-98); Mean Platelet Volume 9.6 fL (7.4-10.4); Monocytes # 1.1 10^3/uL (0.2-0.9); Monocytes % 12.9 %; Neutrophils # 5.82 10^3/uL (1.8-7.7); Nucleated Red Blood Cells % 0 %; Platelet Count 210 10^3/cmm (157-399); Red Blood Count 3.04 10^6/uL (3.85-5.65); Red Cell Distribution Width 15.6 % (12.1-15.1); White Blood Count 8.31 10^3/uL (3.29-11.43)
[2023-08-30] MEDS: iohexol 350 mg/mL 500 mL Btl (per mL) IV (19:51)
[2023-08-30 19:58] LABS: Alanine Aminotransferase 62 U/L (0-33); Albumin Level 3.2 g/dL (3.5-5.2); Alkaline Phosphatase 72 U/L (35-105); Anion Gap 12.3 (5-19); Aspartate Amino Transferase 61 U/L (0-32); Blood Urea Nitrogen 7 mg/dL (8-23); Calcium 7.9 mg/dL (8.5-10.5); Carbon Dioxide 24 mmol/L (22-29); Chloride 101 mmol/L (98-107); Creatinine Clr Calc Pharmacy 68.5396; Globulin 2.9 g/dL (1.3-4.6); Glucose 123 mg/dL (65-115); Osmolality Calculated 277 mOsm/kg (285-295); Potassium 3.3 mmol/L (3.5-5.1); Sodium 134 mmol/L (136-145); Total Bilirubin 0.3 mg/dL (0.15-1.2); Total Protein 6.1 g/dL (6.6-8.7)
[2023-08-30 20:04] LABS: Partial Thromboplastin Time 92.2 SECONDS (23.9-36.7)
[2023-08-30 20:06] LABS: INR 5.24 (0.8-1.2)
[2023-08-30] MEDS: ondansetron 2 mg/ML SDV 2 mL 4 MG IVP (20:08)
[2023-08-30] MEDS: sodium chloride 0.9% 1,000 ML 500 ML IV (20:08)
[2023-08-30 20:09] VITALS: PULSE 96; RESP 16; O2SAT 92
[2023-08-30 22:19] VITALS: PULSE 101; RESP 18; O2SAT 89
[2023-08-30 22:40] LABS: Add Urine Microscopic? YES; Bacteria Urine TRACE /hpf; Bilirubin Urine 1+ (Negative); Blood Urine Neg (Negative); Glucose Urine UA Norm (Normal); Ketones Urine 1+ (Negative); Leukocyte Esterase Urine Negative (Negative); Nitrate Urine Negative (Negative); Protein Urine 1+ (Negative); RBC Urine 0-4 /hpf (0-2); Specific Gravity, Urine 1.005 (1.005-1.030); Urine Appearance Hazy (CLEAR); Urine Color Yellow (Yellow); Urobilinogen Urine Neg (Negative); pH Urine 5 (5-7)
--- NOTE | 2023-08-30 22:52 | XRR_ITS ---
PROCEDURE INFORMATION: Exam: XR Chest Exam date and time: 08/30/2023 11:01 PM Age: 83 years old Clinical indication: Other: N/v; Additional info: Hypoxia TECHNIQUE: Imaging protocol: Radiologic exam of the chest. Views: 1 view. COMPARISON: CT angio chest PE protcl [id number] 08/06/2023 6:22 PM FINDINGS: Tubes, catheters and devices: Right-sided Port-A-Cath. Lungs: Emphysematous changes. Pleural spaces: Unremarkable. No pleural effusion. No pneumothorax. Heart/Mediastinum: Cardiomegaly. Bones/joints: Unremarkable. XR/XR chest 1V portable [id number] IMPRESSION: 1. Negative for infiltrate 2. Emphysematous changes. 3. Cardiomegaly.
[2023-08-30 23:20] LABS: ABG PCO2 32.2 mmHg (35-45); ABG PH Result 7.43 (7.35-7.45); Base Excess ABG -2.2 mmol/L (-2.0-2.0); Blood Gas Allen Test Pos; Blood Gas Sample Site Radial, right; Blood Gas Sample Type Arterial; HCO3 ABG 21.5 mmol/L (22-26); PO2 ABG 72.6 mmHg (80.0-100.0); PO2 FiO2 Ratio Arterial Blood 0
[2023-08-31 00:23] VITALS: BP 100/52; PULSE 101; RESP 18; O2SAT 92
== END 2023-08-31 01:20 | disposition home or self-care (01) ==
PROVIDERS: Emergency Provider Emergency Medicine; PCP Family Medicine
DX: A08.4 Viral intestinal infection, unspecified (principal); E86.0 Dehydration; Z79.01 Long term (current) use of anticoagulants; Z85.3 Personal history of malignant neoplasm of breast; I10 Essential (primary) hypertension
CPT/HCPCS: 36600; 71045; 74177; 80053; 81001; 82803; 85025; 85610; 85730; 96361; 96374; 99285; J2405; J7030; Q9967

== ENCOUNTER 2023-09-05 02:02 | Inpatient (IN) | payer MEDICARE, MEDICAID, SELFPAY ==
[2023-09-05] VITALS (47 sets, daily range): BP systolic 75–120; BP diastolic 44–73; PULSE 83–99; RESP 13–36; TEMP 37.1–37.3; O2SAT 85–96; BMI 39.9
--- NOTE | 2023-09-05 03:02 | P.HP_ITS ---
Providers/Chief Complaint Admitting Physician: Warren Coyle MD Primary Care Provider: Sánchez Macario Chief Complaint: N/V/D Hypotension Shock History of Present Illness Janet Calvillo is a 83 year old female history of breast cancer, currently on chemotherapy last dose roughly 3 weeks ago, history of aortic valve stenosis, hypertension, history of DVT/PE on Coumadin however currently on hold due to supratherapeutic INR, who presents to [facility] from a transfer from [facility] due to diarrhea, shock, currently she is alert oriented x 3, following all commands on 4 of Levophed, her major complaint is her mouth being dry, continues to have diarrhea, feeling nauseous, and having abdominal pain. Patient tells me that since getting chemotherapy roughly 3 weeks ago she has had profuse diarrhea, she tells me that she has been on prednisone without improvement of her diarrhea, no recent antibiotic use, does report subjective fevers, chills, fatigue, malaise, she was here in our emergency room a few days ago was discharged home with Zheng, she presented to [facility] due to persistent diarrhea feeling unwell, fatigue, malaise, poor appetite, diffuse abdominal pain, no sick contacts, recent travel, she drinks well water workup at [facility] white blood cell count 7.5, hemoglobin 10.5, sodium 130, potassium 3.1, creatinine 1.03, glucose 112, bicarb 21, AST 41, CRP 69.5, INR 4.5, UA relatively within normal limits, C. difficile toxin was not detected, lactic acid 10.3, CT scan abdomen pelvis no acute findings she was given fluid 2 L, given 20 mill equivalents of potassium started on Levophed, was also given doses of vancomycin, Zosyn due to concerns for immunocompromise state, blood pressures were as low as 82/50, heart rates as high as 106, Review of Systems Const: Reports: fever(s), chills, fatigue and malaise Card: Denies: chest pain GI: Reports: abdominal pain, nausea, diarrhea and bloating : Denies: flank pain Neuro: Denies: headache(s) Medications/Allergies Home Medications Medication Instructions Recorded Confirmed Last Taken Type calcium carb and lactate 200 1 tab PO QAM 12/28/19 08/11/23 08/06/23 06:00 History mg-vitamin D3 6.25 mcg (250 unit) tablet diphenhydramine HCl 25 mg capsule 25 mg PO TID PRN Itching 12/28/19 08/11/23 12/24/22 History (Benadryl) fluoxetine 20 mg capsule (Prozac) 20 mg PO DAILY 12/28/19 08/11/23 08/06/23 06:00 History furosemide 20 mg tablet (Lasix) 20 mg PO DAILY 12/28/19 08/11/23 08/06/23 06:00 History levothyroxine 100 mcg capsule 100 mcg PO DAILY 12/28/19 08/11/23 08/06/23 06:00 History meclizine 25 mg tablet 25 mg PO TID 12/28/19 08/11/23 12/31/22 History multivitamin 1 tab PO DAILY 12/28/19 08/11/23 08/06/23 06:00 History potassium chloride 10 mEq 10 meq PO DAILY 12/28/19 08/11/23 08/06/23 06:00 History capsule,extended release red yeast rice 600 mg capsule 600 mg PO BID 12/28/19 08/11/23 12/31/22 History tolterodine 4 mg capsule,extended 4 mg PO DAILY 12/28/19 08/11/23 08/06/23 06:00 History release 24 hr vitamin B complex (B 1 tab PO DAILY 12/28/19 08/11/23 08/06/23 06:00 History Complex-Vitamin B12 tablet) denosumab 60 mg/mL subcutaneous 60 mg SUBCUT Q6M 06/26/20 08/11/23 08/06/23 06:00 History syringe (Prolia) cyanocobalamin (vitamin B-12) 2,500 mcg PO DAILY 07/19/21 08/11/23 08/06/23 06:00 History 2,500 mcg tablet vitamin E mixed 1,000 unit capsule 4,000 unit PO DAILY 07/19/21 08/11/23 08/06/23 06:00 History albuterol sulfate 90 mcg/actuation 1 inh inhalation QID PRN shortness 12/05/21 08/11/23 08/06/23 06:00 Rx aerosol inhaler (Ventolin HFA) of breath or wheezing #8.5 grams warfarin 5 mg tablet 10 mg PO DAILY 11/20/22 08/11/23 08/03/23 History lorazepam 1 mg tablet 0.5 - 1 mg (0.5 - 1 x 1 mg) PO Q6H 12/31/22 08/11/23 Unknown Rx PRN Severe Nausea #30 tabs lorazepam 1 mg tablet 0.5 - 1 mg (0.5 - 1 x 1 mg) PO Q6H 12/31/22 08/11/23 08/06/23 06:00 Rx PRN Severe Nausea #30 tabs acetaminophen 325 mg capsule 325 mg PO Q6H #14 caps 01/01/23 08/11/23 08/07/23 01:30 Rx (Tylenol) levalbuterol HCl 0.63 mg/3 mL 0.63 mg (3 mL) inhalation TID PRN 01/16/23 08/11/23 08/06/23 06:00 Rx solution for nebulization shortness of breath or wheezing #75 mL Nebulizer and accessory kit #1 ea 02/05/23 08/11/23 Unknown Rx selenium 50 mcg tablet 50 mcg PO DAILY 02/05/23 08/11/23 08/06/23 06:00 History fluconazole 100 mg tablet 100 mg PO DAILY 5 days #5 tabs 04/09/23 08/11/23 08/06/23 06:00 Rx levofloxacin 500 mg tablet 500 mg PO DAILY 7 days #7 tabs 07/10/23 08/11/23 08/06/23 06:00 Rx lidocaine-prilocaine 2.5 %-2.5 % 1 applic topical ONCE 07/23/23 08/11/23 Unknown History topical cream custom inserts #1 ea 08/06/23 08/11/23 Unknown Rx enoxaparin 100 mg/mL subcutaneous 100 mg SUBCUT DAILY #10 mL 08/06/23 08/11/23 08/06/23 10:30 Rx syringe (Lovenox) prednisone 10 mg tablet 20 mg (2 x 10 mg) PO BID #30 tabs 08/08/23 08/11/23 Unknown Rx diphenoxylate-atropine 2.5 1 tab PO BID PRN diarrhea #10 tabs 08/30/23 Unknown Rx mg-0.025 mg tablet (Lomotil) ondansetron 4 mg disintegrating 4 mg PO Q6H PRN nausea and 08/30/23 Unknown Rx tablet vomiting #20 tabs Allergies Allergy/AdvReac Type Severity Reaction Status Date / Time adhesive Allergy Unknown unknown Verified 08/13/23 14:24 ciprofloxacin [From Cipro] Allergy Unknown unknown Verified 08/13/23 14:24 erythromycin base Allergy Unknown unknown Verified 08/13/23 14:24 gabapentin [From Neurontin] Allergy Unknown unknown Verified 08/13/23 14:24 hydrocodone [From Vicodin] Allergy Unknown unknown Verified 08/13/23 14:24 Influenza Virus Vaccines Allergy Unknown unknown Verified 08/13/23 14:24 tetanus toxoid, adsorbed Allergy Unknown unknown Verified 08/13/23 14:24 tramadol [From Ultram] Allergy Unknown unknown Verified 08/13/23 14:24 aspirin Allergy stomach Verified 08/13/23 14:24 pain, unbearable egg Allergy unknown Verified 08/13/23 14:24 NSAIDS (Non-Steroidal Allergy heartburn, Verified 08/13/23 14:24 Anti-Inflamma stomach pain Tetanus Vaccines and Toxoid Allergy unknown Verified 08/13/23 14:24 PFSH Acute PFSH: Medical History Asthma Breast cancer Hydronephrosis of right kidney Gross hematuria Osteoporosis Arthritis Aortic stenosis Hypertension DVT (deep venous thrombosis) Pulmonary embolism Obesity Surgical History Hx of tubal ligation Hx of cystoscopy Hx of colonoscopy Age 65 Hx of cholecystectomy H/O: hysterectomy Hx of cataract surgery S/P tonsillectomy Family History Father , AT 92 Congestive heart failure (CHF) Mother , AT 100 of unknown cause Other CAD (coronary artery disease) Cancer Diabetes Hyperlipidemia Hypertension Stroke Denies family history of Psychiatric illness Chronic kidney disease (CKD) Suicide Family history of premature coronary artery disease Lung disease Social History Smoking and tobacco/nicotine status: never used tobacco/nicotine Alcohol intake: never Substance/Drug Use: never Marital status: / Current occupational status: retired and disabled Vitals/I&O/Wt Weight last 48 hrs Weight 112.037 kg Physical Exam Const: COMMON NORMALS: no acute distress and patient oriented x3 HENMT: COMMON NORMALS: normocephalic HEAD & SCALP: normocephalic Eye: COMMON NORMALS: Equal, round and reactive pupils present and EOMs intact bilaterally Lymph: LYMPHATIC: no lymphadenopathy noted Resp: COMMON NORMALS: normal respiratory effort, No retractions, No use of accessory muscles and clear to auscultation bilaterally AUSCULTATION: clear to auscultation bilaterally Cardio: COMMON NORMALS: regular rate, regular rhythm, S1 normal heart sound present and S2 normal heart sound present RATE: regular rate RHYTHM: regular rhythm HEART SOUNDS: S1 normal heart sound present and S2 normal heart sound present GI: COMMON NORMALS: Normal to inspection, nondistended, normoactive bowel sounds present, Soft to palpation and non-tender Extremity: COMMON NORMALS: no pedal edema Neuro: COMMON NORMALS: patient oriented x3, CN's II-XII intact bilaterally and moves all extremities Psych: COMMON NORMALS: mental status grossly normal Sepsis: Is patient septic: No Focused sepsis exam performed: Yes Focused sepsis exam: DP PT pulses palpable, cap refill less than 2 seconds, no mottling, Date exam was performed: 09/05/23 Time exam was performed: 03:10 A&P Assessment and plan (1) Shock: (2) Diarrhea: (3) Severe aortic valve stenosis: (4) Hypertension: Qualifiers: Hypertension type: essential hypertension Qualified Code(s): I10 - Essential (primary) hypertension (5) DVT (deep venous thrombosis): Qualifiers: DVT location: lower extremity Affected thrombotic vein of extremity: unspecified lower extremity proximal vein Chronicity: chronic Laterality: bilateral Qualified Code(s): I82.5Y3 - Chronic embolism and thrombosis of unspecified deep veins of proximal lower extremity, bilateral (6) Pulmonary embolism: Qualifiers: Pulmonary embolism type: unspecified Chronicity: chronic Acute cor pulmonale presence: without acute cor pulmonale Qualified Code(s): I27.82 - Chronic pulmonary embolism (7) Immunocompromised state: (8) Supratherapeutic INR: Plan Shock -Lactic acid within normal limits -Currently on 4 Levophed -Could be secondary to dehydration, severe diarrhea -Continue IV fluids at 75 cc an hour ? Wean off Levophed -Monitor vitals closely -She has received antibiotics at outside facility, will hold off on further antibiotic dosing Diarrhea, nausea, vomiting, abdominal pain ? Stool studies ? CRP, Pro-Ugido, sed rate ? CMV studies ? Blood cultures ? Isolation precautions History of breast cancer, currently on chemotherapy Severe aortic stenosis Supratherapeutic INR, hold Coumadin History of DVT and PE, currently anticoagulated due to supratherapeutic INR, recheck INR today Full code ? SCDs for DVT prophylaxis, supratherapeutic INR Attestations Medical Necessity Statement*: Patient requires hospitalization, inpatient, greater than 2 midnights, due to shock, diarrhea, nausea, vomiting, abdominal pain, currently on Levophed, requiring ICU admission Coding Level of Care Code Critical Care >/= 30 minutes Critical care time (in minutes): 50 The high probability of a clinically significant, sudden or life threatening deterioration, as referenced in this documentation, required my full and direct attention, intervention and personal management. The critical care time shown is in addition to time spent performing any reported separately billable procedures and includes the following: [x] Data and vital sign review and interpretation [x ] Patient assessment, examination and intervention [x] Medication orders and management [x] Patient/Family updates as able [x] Care Coordination and Documentation. 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
--- NOTE | 2023-09-05 03:29 | ECG_ITS ---
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 Measurements Intervals [place] Rate: 92 P: 54 NV: 162 QRS: -9 QRSD: 98 T: 4 QT: 375 QTc: 465 Interpretive Statements SINUS RHYTHM LOW QRS VOLTAGE IN PRECORDIAL LEADS [QRS DEFLECTION < 1.0 mV IN CHEST LEADS] Poor R wave progression in the anterior leads Nonspecific ST changes Abnormal EKG Electronically Signed On 09-05-2023 8:15:25 CDT by Albert Torres M.D. [email or web address] ([id number]
[2023-09-05] MEDS: norepinephrine 4 MG/250 ML BAG 7.5 MG IV (03:45)
[2023-09-05] MEDS: pantoprazole 40 mg SDV IVP ×2 (03:47→13:06)
[2023-09-05] MEDS: sodium chloride 0.9% 1,000 ML 75 ML IV ×2 (03:48→17:45)
[2023-09-05 04:06] LABS: Erythrocyte Sedimentation Rate 41 mm/hr (0-15)
[2023-09-05 04:08] LABS: Basophils % 0.7 %; Eosinophils # 1.1 10^3/uL (0.0-0.8); Eosinophils % 17.9 %; Hematocrit 30.9 % (36-47); Lymphocytes # 0.7 10^3/uL (0.8-4.8); Mean Corpuscular HGB Conc 31.4 g/dL (30-55); Mean Corpuscular Hemoglobin 34.2 pg (27-33); Mean Corpuscular Volume 108.8 fl (85-98); Mean Platelet Volume 10.2 fL (7.4-10.4); Monocytes % 16.5 %; Neutrophils # 3.12 10^3/uL (1.8-7.7); Neutrophils % 52.6 %; Nucleated Red Blood Cells % 0 %; Platelet Count 203 10^3/cmm (157-399); Red Blood Count 2.84 10^6/uL (3.85-5.65); Red Cell Distribution Width 15.4 % (12.1-15.1); White Blood Count 5.93 10^3/uL (3.29-11.43)
[2023-09-05 04:21] LABS: INR 4.39 (0.8-1.2)
[2023-09-05 04:23] LABS: Estmated Average Glucose 85; Hemoglobin A1C 4.6 % (4.0-6.0)
[2023-09-05 04:25] LABS: Lactic Sepsis W/Reflex 0.8 mmol/L (0.5-2.2)
[2023-09-05 04:26] LABS: Troponin(5th) Baseline 47 ng/L (0-10)
[2023-09-05 04:38] LABS: Creatine Phosphokinase 224 U/L (26-192); Free T4 Free Thyroxine 1.16 ng/dL (0.82-1.77); T3 Free 1.7 PG/ML (2.0-4.4)
[2023-09-05 04:43] LABS: Procalcitonin 0.47 ng/mL (0-0.5); Thyroid Stimulating Hormone 5.96 uIU/mL (0.27-4.20)
[2023-09-05 04:54] LABS: Ferritin 564 ng/mL (15-150)
[2023-09-05 04:55] LABS: Alanine Aminotransferase 21 U/L (0-33); Albumin Level 2.6 g/dL (3.5-5.2); Alkaline Phosphatase 72 U/L (35-105); Anion Gap 17.7 (5-19); Aspartate Amino Transferase 34 U/L (0-32); Blood Urea Nitrogen 9 mg/dL (8-23); C Reactive Protein 65.4 mg/L (0.0-4.9); Carbon Dioxide 18 mmol/L (22-29); Chloride 98 mmol/L (98-107); Chol HDL Ratio 12.14 mg/dL (0.0-4.40); Cholesterol 170 mg/dL (0-200); Globulin 2.3 g/dL (1.3-4.6); Glucose 113 mg/dL (65-115); HDL Cholesterol 14 mg/dL (60-100); LDL Cholesterol Calculated 99 mg/dL (50-129); LDL HDL Ratio 7.07 RATIO (0.00-3.22); Magnesium 1.5 mg/dL (1.7-2.3); Osmolality Calculated 269 mOsm/kg (285-295); Potassium 3.7 mmol/L (3.5-5.1); Sodium 130 mmol/L (136-145); Total Bilirubin 0.5 mg/dL (0.15-1.2); Total Protein 4.9 g/dL (6.6-8.7); Triglycerides 284 mg/dL (0-150)
--- NOTE | 2023-09-05 05:04 | ECG_ITS ---
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 Measurements Intervals [place] Rate: 93 P: 37 WA: 140 QRS: -5 QRSD: 96 T: 9 QT: 394 QTc: 492 Interpretive Statements SINUS RHYTHM LOW QRS VOLTAGE IN PRECORDIAL LEADS [QRS DEFLECTION < 1.0 mV IN CHEST LEADS] NONSPECIFIC T-WAVE ABNORMALITY Compared to ECG 09/05/2023 03:29:58 No significant change Electronically Signed On 09-05-2023 8:16:21 CDT by Albert Torres M.D. [id number]
[2023-09-05 06:09] LABS: Troponin 5 2HR 45.23 ng/L (0-10)
[2023-09-05 06:10] LABS: Troponin 5 2HR Delta -1.77 ABS# (0-10)
--- NOTE | 2023-09-05 09:01 | ECG_ITS ---
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 Measurements Intervals [place] Rate: 88 P: 25 OR: 140 QRS: -4 QRSD: 98 T: -6 QT: 386 QTc: 467 Interpretive Statements SINUS RHYTHM LOW QRS VOLTAGE IN PRECORDIAL LEADS [QRS DEFLECTION < 1.0 mV IN CHEST LEADS] NONSPECIFIC T-WAVE ABNORMALITY Compared to ECG 09/05/2023 05:04:17 No significant changes Electronically Signed On 09-05-2023 10:09:08 CDT by Albert Torres M.D. [id number]
[2023-09-05] MEDS: cyanocobalamin 1,000 mcg Tablet 2500 MCG PO (10:13)
[2023-09-05] MEDS: multivitamin therapeutic Tablet 1 TAB PO (10:13)
[2023-09-05] MEDS: levothyroxine 100 mcg Tablet PO (10:14)
[2023-09-05] MEDS: fluoxetine 20 mg Capsule PO (10:14)
[2023-09-05 10:55] LABS: Troponin 5 6HR 40.88 ng/L (0-10)
[2023-09-05 10:57] LABS: Troponin 5 6HR Delta -6.12 ng/L (0-12)
--- NOTE | 2023-09-05 11:57 | CTR_ITS ---
PROCEDURE INFORMATION: Exam: CT Chest With Contrast; Diagnostic Exam date and time: 09/05/2023 4:16 PM Age: 83 years old Clinical indication: Other: Diarrhea TECHNIQUE: Imaging protocol: Diagnostic computed tomography of the chest with contrast. COMPARISON: CT angio chest PE protcl [id number] 08/06/2023 6:22 PM FINDINGS: Tubes, catheters and devices: Right IJ port infusion catheter is present with tip in SVC. Thyroid: No significant thyroid pathology. Lungs: Unchanged 7 mm right lower lobe nodule in the anterior basilar segment on series 6, image 35 also unchanged compared with 06/13/2021 consistent with benign pathology. A 6 x 5 mm right lower lobe nodule on series 6 image 39 is also unchanged. 5 mm left upper lobe paramediastinal nodule on series 6, image 33 is also unchanged. Other tiny nodules also noted without change. No new or enlarging nodule. Mild areas of scar versus atelectasis noted in the lungs. Pleural spaces: No pleural effusion. Heart: Unremarkable. No cardiomegaly. No pericardial effusion. Coronary arteries: Coronary artery calcifications. Lymph nodes: No evidence of lymphadenopathy. Vasculature: Mild dilatation ascending thoracic aorta measuring 4 cm without change. Diaphragm: Small hiatal hernia. Bones/joints: Mild degenerative change present in the spine. Soft tissues: Unremarkable. Other findings: Evaluation limited by respiratory degradation. PROCEDURE INFORMATION: Exam: CT Abdomen And Pelvis With Contrast Exam date and time: 09/05/2023 4:16 PM Age: 83 years old Clinical indication: Other: Diarrhea TECHNIQUE: Imaging protocol: Computed tomography of the abdomen and pelvis with contrast. Radiation optimization: All CT scans at this facility use at least one of these dose optimization techniques: automated exposure control; mA and/or kV adjustment per patient size (includes targeted exams where dose is matched to clinical indication); or iterative reconstruction. Contrast material: OMNI 350; Contrast volume: 100 ml; Contrast route: INTRAVENOUS (IV); COMPARISON: CT abdomen pelvis w con* [id number] 08/30/2023 7:50 PM RADIATION DOSE METRICS: Total DLP (mGy-cm): 1546.78 FINDINGS: Lungs: Visualized lung bases are free of significant pathology. Liver: No significant liver pathology. Gallbladder and bile ducts: Prior cholecystectomy. No biliary dilatation. Pancreas: No significant pancreatic pathology. Spleen: No significant splenic pathology. Adrenal glands: No significant adrenal pathology. Kidneys and ureters: No significant renal pathology. Stomach and bowel: Limited assessment of colonic wall secondary to nondistention. Submucosal fat deposition seen in portions of the colon, a finding which has been reported in both chronic inflammatory bowel disease and normal variants. Appearance of the colon is unchanged compared with the prior study. Appendix: No appendiceal pathology evident. Intraperitoneal space: No ascites. Vasculature: No abdominal aortic aneurysm. Lymph nodes: No evidence of lymphadenopathy. Urinary bladder: See Soft tissues finding. Reproductive: Prior hysterectomy. No significant adnexal pathology. Bones/joints: Dextrocurvature of the lumbar spine with degenerative change. Soft tissues: Small fat containing periumbilical hernia. Urinary bladder is decompressed by Jones catheter limiting assessment of the wall. CT/CT abdomen pelvis w con* [id number] IMPRESSION: 1. No acute chest disease. 2. Stable pulmonary nodules dating back to 2021 consistent with benign pathology; no further follow-up required per Fleischner criteria. 3. Minor findings described above. IMPRESSION: No acute pathology. Multiple minor findings as noted above unchanged compared with the prior study.
[2023-09-05 12:30] LABS: Iron 34 ug/dL (37-145); Percent Saturation 26.1 % (20-50); Total Iron Binding Capacity 130 mcg/dl; Unsaturated Iron Binding 96 ug/dL (112-347)
[2023-09-05] MEDS: hydrocortisone 100 mg/2 mL SDV IVP (13:06)
[2023-09-05] MEDS: calcium chloride 10% Syr 10 mL 1 GM IVP (13:07)
[2023-09-05] MEDS: lactated ringers 1,000 ML 999 ML IV (13:07)
[2023-09-05] MEDS: piperacillin-tazobactam 3.375 GM in sodium chloride 0.9% (plus) 50 ML IV ×2 (13:07→19:55)
[2023-09-05] MEDS: magnesium sulfate premix 2 GM/50 ML PIGGYBACK IV (13:07)
[2023-09-05 13:35] LABS: Vitamin B12 > 2000 pg/mL (232-1245)
--- NOTE | 2023-09-05 13:50 | P.PN_ITS ---
Subjective 2 Subjective: Admitted overnight. On examination patient laying comfortably in bed, saturating in high 80s on room air. Currently on 4 of Levophed. No urine output documented. Patient is awake and alert but looks tired and dehydrated. Denies any abdominal pain or diarrhea since admission. Vitals/I&O/Wt Last Vital Signs Temp 98.7 F 09/05/23 10:00 Pulse 90 09/05/23 12:00 Resp 14 09/05/23 12:00 BP 96/56 09/05/23 12:00 Pulse Ox 88 L 09/05/23 12:00 O2 Del Method Room Air 09/05/23 10:04 09/04/23 09/05/23 09/05/23 22:59 06:59 14:59 Intake Total 23.875 / 23.875 Balance 23.875 / 23.875 Weight last 48 hrs Weight 112.037 kg Weight 112.037 kg Physical Exam 2 Narrative: General: No acute distress, AO x3, sick appearing, dehydrated HEENT: PERRLA, pupils bilaterally equal and reactive Chest: Bilateral bronchial breath sounds all over lung lay with occasional rhonchi CVS: S1-S2 regular, ejection systolic murmur at aortic region radiating to carotids 2/6, no tachycardia, no gallops, no rubs Abdomen: Soft, nontender, no organomegaly, bowel sounds present Neuro: No focal deficits, no facial deformity, AO x3, power 5/5 in all limbs Const: GENERAL APPEARANCE: not diaphoretic Cardio: COMMON NORMALS: regular rate, S1 normal heart sound present and S2 normal heart sound present RATE: regular rate HEART SOUNDS: S1 normal heart sound present, S2 normal heart sound present and Murmur heart sound present (Ejection systolic murmur at aortic region radiating to carotids 2/6) Skin: COMMON NORMALS: no rashes or lesions noted; negative for turgor normal GENERAL SKIN EXAM: no rashes or lesions noted and decreased turgor Quick SOFA Score: Respiratory Rate: 14 Blood Pressure: 96/56 Marlena Coma Scale: 15 qSOFA Score: 1 If qSOFA score 2 or greater, continue: Blood Pressure Mean: 69 N orepinephrine Current Rate (?g/kg/min): 4 Bilirubin (mg/dl): 0.5 Platelets (x10?/ml): 203 Creatinine (mg/dl): 1.0 Evaluation: Current stage of sepsis: septic shock Sepsis stage criteria used: [facility] Sep-1 and Sepsis-3 Focused Exam: Vital signs: Temp Pulse Resp BP Pulse Ox O2 Del Method O2 Del Method 09/05/23 12:00 90 14 96/56 88 L 09/05/23 11:30 88 17 99/52 90 09/05/23 11:00 88 26 H 97/50 09/05/23 10:30 90 25 H 97/45 93 09/05/23 10:04 89 92 Room Air 09/05/23 10:00 98.7 F 88 23 H 117/65 93 09/05/23 09:30 91 20 H 120/50 92 09/05/23 09:00 89 33 H 106/59 93 09/05/23 08:30 90 21 H 97/54 92 09/05/23 08:00 88 29 H 97/54 95 09/05/23 07:30 88 31 H 98/56 92 09/05/23 07:00 91 36 H 117/62 90 09/05/23 06:30 96 20 H 107/48 94 09/05/23 06:00 91 28 H 90/48 89 L 09/05/23 05:50 93 09/05/23 05:30 93 22 H 111/56 85 L 09/05/23 05:00 94 36 H 94/50 85 L 09/05/23 04:30 94 34 H 89/45 89 L 09/05/23 04:00 99 25 H 103/58 93 Room Air 09/05/23 03:40 96 20 H 109/63 95 09/05/23 03:37 94 Room Air 09/05/23 03:20 93 32 H 98/58 95 09/05/23 03:00 94 24 H 89/60 87 L 09/05/23 02:55 99 09/05/23 02:40 96 21 H 93/67 94 09/05/23 02:21 99.2 F 95 30 H 97/53 96 Room Air 09/05/23 02:19 Room Air Cardiovascular exam: Yes regular rate, Yes S1 normal heart sound present, Yes S2 normal heart sound present and Yes Murmur heart sound present (Ejection systolic murmur at aortic region radiating to carotids 2/6) Capillary refill: > 3 Seconds Peripheral pulse strength: 2+ Slightly Diminished Peripheral pulse location: Radial Skin exam: No turgor normal, Yes no rashes or lesions noted and No diaphoretic Date exam was performed: 09/05/23 Time exam was performed: 14:10 Bedside Monitoring: Bedside ultrasound performed: No Fluid responsiveness: Fluid Responsive Date bedside monitoring was performed: 09/05/23 Time bedside monitoring was performed: 14:10 2 Sepsis Screen No Definite Risk 09/05/23 02:19 Respiratory Rate 14 breaths/min (12 - 18) 09/05/23 12:00 Blood Pressure 96/56 mmHg 09/05/23 12:00 [place] Coma Scale Score 15 09/05/23 12:00 SOFA Score: 2 Marlena Coma Scale Score 15 09/05/23 12:00 Blood Pressure Mean 69 mmHg 09/05/23 12:00 Total Bilirubin 0.5 mg/dL (0.15-1.2) 09/05/23 03:52 Platelet Count 203 10^3/cmm (157-399) 09/05/23 03:52 Creatinine 1.0 mg/dL (0.5-0.9) H 09/05/23 03:52 Data 09/05/23 03:52 09/05/23 03:52 Micro: Microbiology 09/05/23 03:55 Blood Culture - Preliminary Blood SPECIMEN COLLECTED 09/05/23 03:52 Blood Culture - Preliminary Blood SPECIMEN COLLECTED A&P Assessment and plan (1) Shock: Most likely septic versus hypovolemic shock. Plan for Cheetah examination. Ringer lactate 1 L fluid bolus followed by normal saline at 75 cc/h. Keep mean artery pressure 65, saturation over 90%. Start on empiric Zosyn for now. Stool studies awaited. Jones catheterization for strict input output charting. (2) Diarrhea: Check stool studies. CT abdomen pelvis with contrast. Patient has history of hematuria with renal stones. Monitor for colitis. Check stool studies. Empirically start on Zosyn for now as patient is in septic shock. IV fluid as above. Given immunocompromise status CMV panel was sent overnight. Will continue to follow. (3) Adrenal insufficiency: Appreciate random cortisol level. Start on hydrocortisone 100 mg IV one-time followed by 50 mg every 6 hourly. Will plan to rapidly wean down. (4) Supratherapeutic INR: On 10 mg of Coumadin as an outpatient 7 days a week. Target INR around 2.5. Currently more than 4. No active bleeding. Hemoglobin stable. Continue to hold off on Coumadin. Monitor INR daily. (5) Interstitial lung disease: Maintain saturation over 90%. Pulmicort twice daily, DuoNeb every 6 hours. On exacerbation for now. (6) Severe aortic valve stenosis: Last echocardiogram from June 2023 showed a normal EF with grade 1 diastolic dysfunction, moderate LVH, severe with mean gradient of 40, aortic valve area of 0.99, mild to moderate aortic regurgitation. Continue to monitor for fluid overload. (7) Hypertension: Qualifiers: Hypertension type: essential hypertension Qualified Code(s): I10 - Essential (primary) hypertension (8) DVT (deep venous thrombosis): Qualifiers: DVT location: lower extremity Affected thrombotic vein of extremity: u nspecified lower extremity proximal vein Chronicity: chronic Laterality: b ilateral Qualified Code(s): I82.5Y3 - Chronic embolism and thrombosis of unspecified deep veins of proximal lower extremity, bilateral (9) Pulmonary embolism: Qualifiers: Pulmonary embolism type: unspecified Chronicity: chronic Acute cor pulmonale presence: without acute cor pulmonale Qualified Code(s): I27.82 - Chronic pulmonary embolism (10) Immunocompromised state: (11) 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 Received second chemotherapy cycle 3 weeks ago. (12) Iron deficiency anemia: Recheck iron panel. Monitor hemoglobin daily. Can plan to start on IV iron supplementation. Qualifiers: Iron deficiency anemia type: other iron deficiency Qualified Code(s): D 50.8 - Other iron deficiency anemias (13) Hypomagnesemia: (14) Hypophosphatemia: Plan Replete electrolytes including magnesium and phosphorus. Monitor daily. Potassium: Stable. Jones catheterization as above for monitor urine output. Full code Clear liquid diet Daughter is the DPOA. Protonix for PUD prophylaxis Supratherapeutic INR will be sufficient for medical prophylaxis. SCDs. Attestations 2 Medical Necessity Statement*: Requires further hospitalization for management of septic shock in setting of diarrhea in a patient who is immunocompromise secondary to chemotherapy for breast cancer, multiple electrolyte abnormalities, supratherapeutic INR, and renal insufficiency Critical Care Time: The high probability of a clinically significant, sudden or life threatening deterioration of the patient's [cardiac, renal, GI] system(s) required my full and direct attention, intervention and personal management. The critical care time is as shown. This time is in addition to time spent performing any reported procedures but includes the following: [x] Data and vital sign review and interpretation [x] Patient assessment, examination and intervention [x] Documentation [x] Medication orders and management Critical Care Time (min): 80 Coding Level of Care Code Critical Care >/= 30 minutes Critical care time (in minutes): 80 The high probability of a clinically significant, sudden or life threatening deterioration, as referenced in this documentation, required my full and direct attention, intervention and personal management. The critical care time shown is in addition to time spent performing any reported separately billable procedures and includes the following: [x] Data and vital sign review and interpretation [x ] Patient assessment, examination and intervention [x] Medication orders and management [x] Patient/Family updates as able [x] Care Coordination and Documentation. 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 I82.5Y3 DVT location: lower extremity Affected thrombotic vein of extremity: unspecified lower extremity proximal vein Chronicity: chronic Laterality: bilateral Chronic pulmonary embolism without acute cor pulmonale, unspecified pulmonary embolism type I27.82 Pulmonary embolism type: unspecified Chronicity: chronic Acute cor pulmonale presence: without acute cor pulmonale Immunocompromised state D84.9 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
--- NOTE | 2023-09-05 15:16 | PC.SOCIAL ---
IMM Update pg 2 of IMM updated and reviewed w/ patient. Copy provided and copy dated, initialed and placed in chart.
[2023-09-05 15:19] LABS: Potassium, Radom Urine 33 mmol/L; Urine Random Chloride 49 mmol/L
[2023-09-05 15:23] LABS: Urine Random Sodium 19 mmol/L
[2023-09-05 16:12] LABS: Adenovirus Not Detected (NOT DETECT); Chlamydia Pneumoniae Not Detected (NOT DETECT); Coronavirus 229E,HKU1,NL63,OC4 Not Detected (NOT DETECT); Human Metapneumovirus Not Detected (NOT DETECT); Human Rhinovirus/Enterovirus Not Detected (NOT DETECT); Influenza A Not Detected (NOT DETECT); Influenza A H1 Not Detected (NOT DETECT); Influenza A H1-2009 Not Detected (NOT DETECT); Influenza A H3 Not Detected (NOT DETECT); Influenza B Not Detected (NOT DETECT); Mycoplasma Pneumoniae Not Detected (NOT DETECT); Parainfluenza Virus Type 1 Not Detected (NOT DETECT); Parainfluenza Virus Type 2 Not Detected (NOT DETECT); Parainfluenza Virus Type 3 Not Detected (NOT DETECT); Parainfluenza Virus Type 4 Not Detected (NOT DETECT); Respiratory Syncytial Virus A Not Detected (NOT DETECT); Respiratory Syncytial Virus B Not Detected (NOT DETECT); SARS-COV-2 Not Detected (NOT DETECT)
[2023-09-05] MEDS: iohexol 350 mg/mL 500 mL Btl (per mL) IV (16:17)
[2023-09-05] MEDS: phosphorus 250 mg Tablet PO (17:46)
[2023-09-05] MEDS: hydrocortisone 100 mg/2 mL SDV 50 MG IVP (17:46)
[2023-09-05] MEDS: magnesium oxide 400 mg tablet PO (17:46)
[2023-09-05 21:57] LABS: Anion Gap 16.8 (5-19); Blood Urea Nitrogen 6 mg/dL (8-23); Carbon Dioxide 17 mmol/L (22-29); Chloride 100 mmol/L (98-107); Creatinine Clr Calc Pharmacy 67.6238; Glucose 135 mg/dL (65-115); Osmolality Calculated 270 mOsm/kg (285-295); Potassium 3.8 mmol/L (3.5-5.1); Sodium 130 mmol/L (136-145)
[2023-09-06] VITALS (28 sets, daily range): BP systolic 87–126; BP diastolic 48–71; PULSE 88–117; RESP 13–39; TEMP 36.4–37.3; O2SAT 90–96; BMI 41.8
[2023-09-06] MEDS: pantoprazole 40 mg SDV IVP ×2 (00:59→13:04)
[2023-09-06] MEDS: hydrocortisone 100 mg/2 mL SDV 50 MG IVP ×4 (01:00→21:15)
[2023-09-06] MEDS: piperacillin-tazobactam 3.375 GM in sodium chloride 0.9% (plus) 50 ML IV ×3 (05:29→21:14)
[2023-09-06 06:40] LABS: Hematocrit 28.7 % (36-47); Lymphocytes # 0.2 10^3/uL (0.8-4.8); Lymphocytes % 6.8 %; Mean Corpuscular HGB Conc 31.4 g/dL (30-55); Mean Corpuscular Volume 108.3 fl (85-98); Mean Platelet Volume 10.8 fL (7.4-10.4); Monocytes # 0.1 10^3/uL (0.2-0.9); Monocytes % 3.7 %; Neutrophils # 2.61 10^3/uL (1.8-7.7); Neutrophils % 88.8 %; Nucleated Red Blood Cells % 0 %; Platelet Count 175 10^3/cmm (157-399); Red Blood Count 2.65 10^6/uL (3.85-5.65); Red Cell Distribution Width 15.3 % (12.1-15.1); White Blood Count 2.94 10^3/uL (3.29-11.43)
[2023-09-06 06:53] LABS: INR 4.58 (0.8-1.2)
[2023-09-06 07:07] LABS: Alanine Aminotransferase 17 U/L (0-33); Albumin Level 2.5 g/dL (3.5-5.2); Alkaline Phosphatase 69 U/L (35-105); Anion Gap 16.7 (5-19); Aspartate Amino Transferase 27 U/L (0-32); Blood Urea Nitrogen 6 mg/dL (8-23); Calcium 7.3 mg/dL (8.5-10.5); Carbon Dioxide 17 mmol/L (22-29); Chloride 103 mmol/L (98-107); Creatinine Clr Calc Pharmacy 69.5126; Globulin 2.7 g/dL (1.3-4.6); Glucose 121 mg/dL (65-115); Osmolality Calculated 275 mOsm/kg (285-295); Potassium 3.7 mmol/L (3.5-5.1); Sodium 133 mmol/L (136-145); Total Bilirubin 0.2 mg/dL (0.15-1.2); Total Protein 5.2 g/dL (6.6-8.7)
[2023-09-06 07:20] LABS: C.Diff PCR (Lab) NEGATIVE (Negative)
[2023-09-06 07:21] LABS: Folate Level 14.9 ng/mL (4.8-37.3)
[2023-09-06] MEDS: sodium chloride 0.9% 1,000 ML 75 ML IV ×2 (08:58→21:14)
[2023-09-06] MEDS: cyanocobalamin 1,000 mcg Tablet 2500 MCG PO (09:05)
[2023-09-06] MEDS: phosphorus 250 mg Tablet PO ×2 (09:05→17:55)
[2023-09-06] MEDS: fluoxetine 20 mg Capsule PO (09:05)
[2023-09-06] MEDS: multivitamin therapeutic Tablet 1 TAB PO (09:05)
[2023-09-06] MEDS: magnesium oxide 400 mg tablet PO ×2 (09:05→17:55)
[2023-09-06] MEDS: levothyroxine 100 mcg Tablet PO (11:09)
--- NOTE | 2023-09-06 13:28 | PC.NURSE ---
Pt has been sitting up in chair. PT assisted, orthostatic VS completed. She has been in chair for 30 minutes and has requested to go back to bed at least 3 times thus far.
--- NOTE | 2023-09-06 13:34 | P.PN_ITS ---
Subjective 2 Subjective: No acute events overnight. Patient is a lot more awake and alert today morning. Able to have complete conversation. States he is feeling better. Has remained hemodynamically stable. Off Levophed. Has remained afebrile. 2 episodes of soft bowel movements overnight. Vitals/I&O/Wt Last Vital Signs Temp 98.4 F 09/06/23 07:00 Pulse 100 09/06/23 12:17 Resp 22 H 09/06/23 11:00 BP 98/60 09/06/23 12:17 Pulse Ox 93 09/06/23 11:00 O2 Del Method Room Air 09/06/23 05:30 09/05/23 09/06/23 09/06/23 22:59 06:59 14:59 Intake Total 2140 / 3257.75 290 / 3547.75 1800 / 1800 Output Total 1800 / 1800 250 / 2050 Balance 340 / 1457.75 40 / 1497.75 1800 / 1800 Weight last 48 hrs Weight 117.651 kg Weight 112.037 kg Weight 112.037 kg Physical Exam 2 Narrative: General: No acute distress, AO x3, sick appearing, dehydrated HEENT: PERRLA, pupils bilaterally equal and reactive Chest: Bilateral bronchial breath sounds all over lung lay with occasional rhonchi CVS: S1-S2 regular, ejection systolic murmur at aortic region radiating to carotids 2/6, no tachycardia, no gallops, no rubs Abdomen: Soft, nontender, no organomegaly, bowel sounds present Neuro: No focal deficits, no facial deformity, AO x3, power 5/5 in all limbs Urinary Catheter Management: Jones: Cath Placed During This Visit: yes Reason for Continuing Indwelling Catheter: Accurate Measurement of Urinary Output in Critically Ill Patients Urinary Catheter Date of Insertion: 09/05/23 Urinary Catheter Time of Insertion: 15:00 Data 09/06/23 05:24 09/06/23 05:24 Micro: Microbiology 09/05/23 05:17 Stool Lactoferrin - Final Stool Occult Blood (FIT) - Final 09/05/23 03:55 Blood Culture - Preliminary Blood NEGATIVE TO DATE 09/05/23 03:52 Blood Culture - Preliminary Blood NEGATIVE TO DATE 09/05/23 15:00 Bacterial Antigens - Final Urine Kidney A&P Assessment and plan (1) Shock: Most likely septic versus hypovolemic shock. Plan for Cheetah examination. Ringer lactate 1 L fluid bolus followed by normal saline at 75 cc/h. Keep mean artery pressure 65, saturation over 90%. Start on empiric Zosyn for now. Stool studies awaited. Jones catheterization for strict input output charting. (2) Diarrhea: Check stool studies. CT abdomen pelvis with contrast. Patient has history of hematuria with renal stones. Monitor for colitis. Check stool studies. Empirically start on Zosyn for now as patient is in septic shock. IV fluid as above. Given immunocompromise status CMV panel was sent overnight. Will continue to follow. (3) Adrenal insufficiency: Appreciate random cortisol level. Start on hydrocortisone 100 mg IV one-time followed by 50 mg every 6 hourly. Will plan to rapidly wean down. (4) Supratherapeutic INR: On 10 mg of Coumadin as an outpatient 7 days a week. Target INR around 2.5. Currently more than 4. No active bleeding. Hemoglobin stable. Continue to hold off on Coumadin. Monitor INR daily. (5) Interstitial lung disease: Maintain saturation over 90%. Pulmicort twice daily, DuoNeb every 6 hours. On exacerbation for now. (6) Severe aortic valve stenosis: Last echocardiogram from June 2023 showed a normal EF with grade 1 diastolic dysfunction, moderate LVH, severe with mean gradient of 40, aortic valve area of 0.99, mild to moderate aortic regurgitation. Continue to monitor for fluid overload. (7) Hypertension: Qualifiers: Hypertension type: essential hypertension Qualified Code(s): I10 - Essential (primary) hypertension (8) DVT (deep venous thrombosis): Qualifiers: DVT location: lower extremity Affected thrombotic vein of extremity: u nspecified lower extremity proximal vein Chronicity: chronic Laterality: b ilateral Qualified Code(s): I82.5Y3 - Chronic embolism and thrombosis of unspecified deep veins of proximal lower extremity, bilateral (9) Pulmonary embolism: Qualifiers: Pulmonary embolism type: unspecified Chronicity: chronic Acute cor pulmonale presence: without acute cor pulmonale Qualified Code(s): I27.82 - Chronic pulmonary embolism (10) Immunocompromised state: (11) 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 Received second chemotherapy cycle 3 weeks ago. (12) Iron deficiency anemia: Appreciate iron panel. Monitor hemoglobin daily. Start on oral iron supplementation. Qualifiers: Iron deficiency anemia type: other iron deficiency Qualified Code(s): D 50.8 - Other iron deficiency anemias (13) Hypomagnesemia: (14) Hypophosphatemia: (15) Orthostatic hypotension: Plan Replete electrolytes including magnesium and phosphorus. Monitor daily. Potassium: Stable. Jones catheterization as above for monitor urine output. Plan for the day: Advance diet to mechanical soft. C. difficile negative. Salmonella, Shigella study awaited. Blood culture negative so far, bacterial antigen negative. Patient complaining of cough. Check sputum culture. Continue with IV Zosyn. Patient developing leukopenia today. No neutropenia. Monitor CBC daily. Respiratory viral panel negative. INR still elevated. Continue to monitor daily. Patient off Levophed. Concerns for adrenal insufficiency. Wean down hydrocortisone to 50 mg 3 times daily. Will plan to wean down gradually within next 48 hours and most likely discharge patient on oral steroids as patient seems to be with adrenal insufficiency. Complaining of frequent falls at home. Check orthostatics. PT and OT evaluation. Continue with normal saline at 75 cc/h. If [facility]ost[facility] Full code Clear liquid diet Daughter is the DPOA. Protonix for PUD prophylaxis Supratherapeutic INR will be sufficient for medical prophylaxis. SCDs. Attestations 2 Medical Necessity Statement*: Requires further hospitalization for management of resolving severe sepsis in setting of gastroenteritis, adrenal insufficiency, orthostatic hypotension, supratherapeutic INR while safe discharge planning is sought. Diagnoses Shock R57.9 Diarrhea R19.7 Adrenal insufficiency E27.40 Supratherapeutic INR R79.1 Interstitial lung disease J84.9 Severe aortic valve stenosis I35.0 Essential hypertension I10 Hypertension type: essential hypertension Chronic deep vein thrombosis (DVT) of proximal vein of both lower extremities I82.5Y3 DVT location: lower extremity Affected thrombotic vein of extremity: unspecified lower extremity proximal vein Chronicity: chronic Laterality: bilateral Chronic pulmonary embolism without acute cor pulmonale, unspecified pulmonary embolism type I27.82 Pulmonary embolism type: unspecified Chronicity: chronic Acute cor pulmonale presence: without acute cor pulmonale Immunocompromised state D84.9 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
[2023-09-06 13:46] LABS: Add Urine Microscopic? NO; Charge for UA Resulting for Rev
[2023-09-06 13:49] LABS: Bilirubin Urine 1+ (Negative); Blood Urine Neg (Negative); Glucose Urine UA Norm (Normal); Ketones Urine 1+ (Negative); Leukocyte Esterase Urine Negative (Negative); Nitrate Urine Negative (Negative); Protein Urine Neg (Negative); Urine Appearance Clear (CLEAR); Urine Color Yellow (Yellow); Urobilinogen Urine Norm (Negative); pH Urine 5 (5-7)
--- NOTE | 2023-09-06 14:00 | PC.NURSE ---
Pt demanded to go back to bed within 10 minutes of last request. Discussed with pt the plan of care today per included sitting up in chair . She stated she did not care, I am 83 years old and I will do what I want. Pt assisted back to bed after linen change
--- NOTE | 2023-09-06 18:30 | PC.NURSE ---
Shift summary: Pt has been afebrile. VS WNL with Sinus rhythm on monitor this shift. Pt preferred to rest in the bed. During attempts to get out of bed, to chair and/or W/C she does start huffing and puffing. It is also difficult for her due to her habitus to get to side of bed from supine position. Upon her transfer to [facility] she did wheeze shortly after exertion. She complains about her left knee giving away on her during transfers and moving. She enjoyed the clear liquid diet this am but has picked at the last two meals of mechanical soft foods. Her right chest port is patent, no s/s of infection at site. No Bm. Her urine output was 375 this shift. 2+ edema remains on her lower legs.
--- NOTE | 2023-09-06 18:37 | PC.NURSE ---
[facility] called, Report given to TAYLER Evans, for bed 251-1.
--- NOTE | 2023-09-06 19:00 | PC.NURSE ---
Pt transferred to room [facility]1 via W/C. Further updates given to Leticia Riley.
[2023-09-07] VITALS (9 sets, daily range): BP systolic 95–136; BP diastolic 55–78; PULSE 87–106; RESP 16–20; TEMP 36.3–36.6; O2SAT 94–96
[2023-09-07] MEDS: pantoprazole 40 mg SDV IVP ×3 (00:04→23:47)
[2023-09-07] MEDS: piperacillin-tazobactam 3.375 GM in sodium chloride 0.9% (plus) 50 ML IV ×3 (04:39→20:02)
[2023-09-07 05:50] LABS: Basophils % 0.2 %; Hematocrit 26.6 % (36-47); Lymphocytes # 0.2 10^3/uL (0.8-4.8); Lymphocytes % 4.8 %; Mean Corpuscular HGB Conc 31.6 g/dL (30-55); Mean Corpuscular Hemoglobin 34.4 pg (27-33); Mean Platelet Volume 10.7 fL (7.4-10.4); Monocytes # 0.2 10^3/uL (0.2-0.9); Monocytes % 3.4 %; Neutrophils # 4.55 10^3/uL (1.8-7.7); Nucleated Red Blood Cells % 0 %; Platelet Count 182 10^3/cmm (157-399); Red Blood Count 2.44 10^6/uL (3.85-5.65); Red Cell Distribution Width 15.7 % (12.1-15.1)
[2023-09-07 06:01] LABS: INR 4.58 (0.8-1.2)
[2023-09-07 07:00] LABS: Alanine Aminotransferase 16 U/L (0-33); Albumin Level 2.7 g/dL (3.5-5.2); Alkaline Phosphatase 61 U/L (35-105); Anion Gap 14.5 (5-19); Aspartate Amino Transferase 23 U/L (0-32); Blood Urea Nitrogen 5 mg/dL (8-23); Calcium 7.4 mg/dL (8.5-10.5); Carbon Dioxide 20 mmol/L (22-29); Chloride 109 mmol/L (98-107); Creatinine Clr Calc Pharmacy 68.1294; Glucose 128 mg/dL (65-115); Osmolality Calculated 289 mOsm/kg (285-295); Potassium 3.5 mmol/L (3.5-5.1); Sodium 140 mmol/L (136-145); Total Bilirubin 0.3 mg/dL (0.15-1.2); Total Protein 4.7 g/dL (6.6-8.7)
[2023-09-07] MEDS: fluoxetine 20 mg Capsule PO (08:00)
[2023-09-07] MEDS: phosphorus 250 mg Tablet PO ×2 (08:00→16:52)
[2023-09-07] MEDS: multivitamin therapeutic Tablet 1 TAB PO (08:00)
[2023-09-07] MEDS: cyanocobalamin 1,000 mcg Tablet 2500 MCG PO (08:00)
[2023-09-07] MEDS: levothyroxine 100 mcg Tablet PO (08:00)
[2023-09-07] MEDS: magnesium oxide 400 mg tablet PO ×2 (08:00→16:52)
[2023-09-07] MEDS: hydrocortisone 100 mg/2 mL SDV 50 MG IVP ×2 (08:04→16:51)
--- NOTE | 2023-09-07 11:21 | XRR_ITS ---
PROCEDURE INFORMATION: Exam: XR Chest Exam date and time: 09/07/2023 12:21 PM Age: 83 years old Clinical indication: Cough; Prior surgery; Surgery date: 1-6 months; Surgery type: Port TECHNIQUE: Imaging protocol: Radiologic exam of the chest. Views: 1 view. COMPARISON: CT abdomen pelvis w con* [id number] 09/05/2023 4:16 PM FINDINGS: Tubes, catheters and devices: There is a right side central line in place extending into the right atrium. Lungs: Unremarkable. No consolidation. Pleural spaces: Unremarkable. No pleural effusion. No pneumothorax. Heart/Mediastinum: Unremarkable. No cardiomegaly. Bones/joints: Unremarkable. XR/XR chest 1V portable [id number] IMPRESSION: 1. No acute findings. 2. Right side central line in good position
[2023-09-07] MEDS: ipratropium-albuterol 3 mL Neb INHALATION ×2 (13:55→20:24)
[2023-09-07] MEDS: benzonatate 100 mg Capsule PO ×2 (14:28→20:01)
--- NOTE | 2023-09-07 15:37 | P.PN_ITS ---
Subjective 2 Subjective: No acute events overnight. Today morning patient seen with physical therapy. Sitting up in chair. States feeling a lot better. Denies any nausea, vomiting, headache. Complaining of cough. States she usually has cough whenever she eats. She thinks she is aspirating as she tends to inhale air during eating. Vitals/I&O/Wt Last Vital Signs Temp 97.4 F L 09/07/23 11:48 Pulse 87 09/07/23 13:56 Resp 18 09/07/23 13:56 BP 121/73 09/07/23 11:48 Pulse Ox 96 09/07/23 13:56 O2 Del Method Room Air 09/07/23 13:56 09/07/23 09/07/23 09/07/23 06:59 14:59 22:59 Intake Total 330 / 3566.25 2060. / 2060. Output Total 500 / 875 Balance -170 / 2691.25 / Weight last 48 hrs Weight 113.54 kg Weight 117.651 kg Physical Exam 2 Narrative: General: No acute distress, AO x3, sick appearing, HEENT: PERRLA, pupils bilaterally equal and reactive Chest: Bilateral bronchial breath sounds all over lung lay with occasional rhonchi CVS: S1-S2 regular, ejection systolic murmur at aortic region radiating to carotids 2/6, no tachycardia, no gallops, no rubs Abdomen: Soft, nontender, no organomegaly, bowel sounds present Neuro: No focal deficits, no facial deformity, AO x3, power 5/5 in all limbs Urinary Catheter Management: Jones: Cath Placed During This Visit: yes Reason for Continuing Indwelling Catheter: Other Urinary Catheter Date of Insertion: 09/05/23 Urinary Catheter Time of Insertion: 15:00 Data 09/07/23 04:53 09/07/23 04:53 A&P Assessment and plan (1) Shock: Most likely septic versus hypovolemic shock. Plan for Cheetah examination. Ringer lactate 1 L fluid bolus followed by normal saline at 75 cc/h. Keep mean artery pressure 65, saturation over 90%. Start on empiric Zosyn for now. Stool studies awaited. Jones catheterization for strict input output charting. (2) Diarrhea: Check stool studies. CT abdomen pelvis with contrast. Patient has history of hematuria with renal stones. Monitor for colitis. Check stool studies. Empirically start on Zosyn for now as patient is in septic shock. IV fluid as above. Given immunocompromise status CMV panel was sent overnight. Will continue to follow. (3) Adrenal insufficiency: Appreciate random cortisol level. Start on hydrocortisone 100 mg IV one-time followed by 50 mg every 6 hourly. Will plan to rapidly wean down. (4) Supratherapeutic INR: On 10 mg of Coumadin as an outpatient 7 days a week. Target INR around 2.5. Currently more than 4. No active bleeding. Hemoglobin stable. Continue to hold off on Coumadin. Monitor INR daily. (5) Interstitial lung disease: Maintain saturation over 90%. Pulmicort twice daily, DuoNeb every 6 hours. On exacerbation for now. (6) Severe aortic valve stenosis: Last echocardiogram from June 2023 showed a normal EF with grade 1 diastolic dysfunction, moderate LVH, severe with mean gradient of 40, aortic valve area of 0.99, mild to moderate aortic regurgitation. Continue to monitor for fluid overload. (7) Hypertension: Qualifiers: Hypertension type: essential hypertension Qualified Code(s): I10 - Essential (primary) hypertension (8) DVT (deep venous thrombosis): Qualifiers: DVT location: lower extremity Affected thrombotic vein of extremity: u nspecified lower extremity proximal vein Chronicity: chronic Laterality: b ilateral Qualified Code(s): I82.5Y3 - Chronic embolism and thrombosis of unspecified deep veins of proximal lower extremity, bilateral (9) Pulmonary embolism: Qualifiers: Pulmonary embolism type: unspecified Chronicity: chronic Acute cor pulmonale presence: without acute cor pulmonale Qualified Code(s): I27.82 - Chronic pulmonary embolism (10) Immunocompromised state: (11) 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 Received second chemotherapy cycle 3 weeks ago. (12) Iron deficiency anemia: Appreciate iron panel. Monitor hemoglobin daily. Start on oral iron supplementation. Qualifiers: Iron deficiency anemia type: other iron deficiency Qualified Code(s): D 50.8 - Other iron deficiency anemias (13) Hypomagnesemia: (14) Hypophosphatemia: (15) Orthostatic hypotension: Plan Replete electrolytes including magnesium and phosphorus. Monitor daily. Potassium: Stable. Jones catheterization as above for monitor urine output. Plan for the day: Continue with mechanical soft diet. Patient complaining of aspiration. Speech therapy and modified barium swallow study in AM. Continue with IV Zosyn. Follow-up stool studies. Repeat magnesium and phosphorus level in AM. For now continue with oral supplementation. Repeat orthostatic. If negative will discontinue IV fluids. Patient does have history of aortic stenosis. No concerns for CHF for now. Cough most likely in setting of aspiration versus COPD. X-ray on admission consistent with emphysema. Start on Tessalon Perles. Pulmicort twice daily, DuoNeb every 6 hours. Repeat chest x-ray. INR still elevated. Continue to hold off on Coumadin. Wean Solu-Medrol to 50 mg twice daily. Will plan to wean further and then discharged on oral steroid taper as an outpatient. Patient would benefit with low-dose steroid continuously as an outpatient. Discharge plan: Plan to discharge in next 24 to 48 hours if patient remains hemodynamically stable. Patient would benefit with home health as an outpatient. Full code Clear liquid diet Daughter is the DPOA. Protonix for PUD prophylaxis Supratherapeutic INR will be sufficient for medical prophylaxis. SCDs. Attestations 2 Medical Necessity Statement*: Requires further hospitalization for management of resolving sepsis in a patient who was admitted with diarrhea, adrenal insufficiency on IV steroids, supratherapeutic INR, cough in setting of COPD while aspiration is ruled out in a patient with baseline history of breast cancer on chemotherapy Diagnoses Shock R57.9 Diarrhea R19.7 Adrenal insufficiency E27.40 Supratherapeutic INR R79.1 Interstitial lung disease J84.9 Severe aortic valve stenosis I35.0 Essential hypertension I10 Hypertension type: essential hypertension Chronic deep vein thrombosis (DVT) of proximal vein of both lower extremities I82.5Y3 DVT location: lower extremity Affected thrombotic vein of extremity: unspecified lower extremity proximal vein Chronicity: chronic Laterality: bilateral Chronic pulmonary embolism without acute cor pulmonale, unspecified pulmonary embolism type I27.82 Pulmonary embolism type: unspecified Chronicity: chronic Acute cor pulmonale presence: without acute cor pulmonale Immunocompromised state D84.9 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
[2023-09-07] MEDS: budesonide 0.5 mg/2 mL Neb INHALATION (20:24)
[2023-09-08] VITALS (11 sets, daily range): BP systolic 91–109; BP diastolic 52–69; PULSE 84–97; RESP 15–18; TEMP 36.4–36.6; O2SAT 94–97
[2023-09-08] MEDS: hydrocortisone 100 mg/2 mL SDV 50 MG IVP (04:40)
[2023-09-08] MEDS: piperacillin-tazobactam 3.375 GM in sodium chloride 0.9% (plus) 50 ML IV ×3 (04:42→20:33)
[2023-09-08 06:58] LABS: Basophils % 0.2 %; Eosinophils % 0.2 %; Hematocrit 25.8 % (36-47); Lymphocytes # 0.3 10^3/uL (0.8-4.8); Lymphocytes % 7.1 %; Mean Corpuscular HGB Conc 31.4 g/dL (30-55); Mean Corpuscular Hemoglobin 34.2 pg (27-33); Mean Corpuscular Volume 108.9 fl (85-98); Mean Platelet Volume 10.5 fL (7.4-10.4); Monocytes # 0.3 10^3/uL (0.2-0.9); Monocytes % 7.1 %; Neutrophils # 3.99 10^3/uL (1.8-7.7); Neutrophils % 83.7 %; Nucleated Red Blood Cells % 0 %; Platelet Count 189 10^3/cmm (157-399); Red Blood Count 2.37 10^6/uL (3.85-5.65); Red Cell Distribution Width 16.2 % (12.1-15.1); White Blood Count 4.77 10^3/uL (3.29-11.43)
[2023-09-08 07:16] LABS: INR 4.26 (0.8-1.2)
[2023-09-08 07:18] LABS: Magnesium 2.1 mg/dL (1.7-2.3)
[2023-09-08 07:20] LABS: Alanine Aminotransferase 16 U/L (0-33); Albumin Level 2.7 g/dL (3.5-5.2); Alkaline Phosphatase 57 U/L (35-105); Aspartate Amino Transferase 27 U/L (0-32); Blood Urea Nitrogen 5 mg/dL (8-23); Calcium 7.2 mg/dL (8.5-10.5); Carbon Dioxide 23 mmol/L (22-29); Chloride 114 mmol/L (98-107); Creatinine Clr Calc Pharmacy 70.3804; Globulin 2.5 g/dL (1.3-4.6); Glucose 108 mg/dL (65-115); Osmolality Calculated 300 mOsm/kg (285-295); Sodium 146 mmol/L (136-145); Total Bilirubin 0.3 mg/dL (0.15-1.2); Total Protein 5.2 g/dL (6.6-8.7)
[2023-09-08] MEDS: cyanocobalamin 1,000 mcg Tablet 2500 MCG PO (08:36)
[2023-09-08] MEDS: fluoxetine 20 mg Capsule PO (08:36)
[2023-09-08] MEDS: multivitamin therapeutic Tablet 1 TAB PO (08:36)
[2023-09-08] MEDS: benzonatate 100 mg Capsule PO ×3 (08:36→20:33)
[2023-09-08] MEDS: magnesium oxide 400 mg tablet PO ×2 (08:36→17:02)
[2023-09-08] MEDS: phosphorus 250 mg Tablet PO ×2 (08:37→17:02)
[2023-09-08] MEDS: levothyroxine 100 mcg Tablet PO (08:37)
[2023-09-08] MEDS: ipratropium-albuterol 3 mL Neb INHALATION ×3 (08:49→19:57)
[2023-09-08] MEDS: budesonide 0.5 mg/2 mL Neb INHALATION ×2 (08:49→19:57)
[2023-09-08 12:09] LABS: Cytomegalovirus Antibody (IGG) <0.60 U/mL; Cytomegalovirus Antibody (IGM) <30.00 AU/mL
[2023-09-08] MEDS: pantoprazole 40 mg SDV IVP ×2 (12:33→20:33)
--- NOTE | 2023-09-08 17:07 | P.PN_ITS ---
Subjective 2 Subjective: Noted to have bilateral lower extremity swelling today which patient attributes to sitting for a long time with dependent legs. Diarrhea is improving. States that she has is more semisolid now. Medications: Reviewed: Yes Vitals/I&O/Wt Last Vital Signs Temp 97.7 F 09/08/23 16:09 Pulse 97 09/08/23 16:09 Resp 17 09/08/23 16:09 BP 91/57 09/08/23 16:09 Pulse Ox 95 09/08/23 16:09 O2 Del Method Room Air 09/08/23 16:09 09/08/23 09/08/23 09/08/23 06:59 14:59 22:59 Intake Total 47.083 / 2958.333 1030 / 1030 50 / 1080 Output Total 300 / 1400 400 / 400 Balance -252.917 / 1558.333 630 / 630 50 / 680 Weight last 48 hrs Weight 120.23 kg Weight 113.54 kg Physical Exam 2 Narrative: General: No acute distress, AO x3 HEENT: PERRLA, pupils bilaterally equal and reactive, pallors not present Chest: Normal vesicular breath sounds, no added sounds, equal good air entry bilaterally CVS: S1-S2 regular, no murmurs, no tachycardia, no gallops, no rubs Abdomen: Soft, nontender, no organomegaly, bowel sounds present Neuro: No focal deficits, no facial deformity, AO x3, power 5/5 in all limbs Urinary Catheter Management: Jones: Cath Placed During This Visit: yes Reason for Continuing Indwelling Catheter: Acute Urinary Retention or Obstruction Urinary Catheter Date of Insertion: 09/05/23 Urinary Catheter Time of Insertion: 15:00 Data 09/08/23 06:10 09/08/23 06:10 Micro: Microbiology 09/07/23 04:45 Gram Stain - Final Sputum - Expectorated Sputum Sputum Culture - Preliminary A&P Assessment and plan (1) Shock: Most likely septic versus hypovolemic shock. Plan for Cheetah examination. Ringer lactate 1 L fluid bolus followed by normal saline at 75 cc/h. Keep mean artery pressure 65, saturation over 90%. Start on empiric Zosyn for now. Stool studies awaited. Jones catheterization for strict input output charting. (2) Diarrhea: Check stool studies. CT abdomen pelvis with contrast. Patient has history of hematuria with renal stones. Monitor for colitis. Check stool studies. Empirically start on Zosyn for now as patient is in septic shock. IV fluid as above. Given immunocompromise status CMV panel was sent overnight. Will continue to follow. (3) Adrenal insufficiency: Appreciate random cortisol level. Start on hydrocortisone 100 mg IV one-time followed by 50 mg every 6 hourly. Will plan to rapidly wean down. (4) Supratherapeutic INR: On 10 mg of Coumadin as an outpatient 7 days a week. Target INR around 2.5. Currently more than 4. No active bleeding. Hemoglobin stable. Continue to hold off on Coumadin. Monitor INR daily. (5) Interstitial lung disease: Maintain saturation over 90%. Pulmicort twice daily, DuoNeb every 6 hours. On exacerbation for now. (6) Severe aortic valve stenosis: Last echocardiogram from June 2023 showed a normal EF with grade 1 diastolic dysfunction, moderate LVH, severe with mean gradient of 40, aortic valve area of 0.99, mild to moderate aortic regurgitation. Continue to monitor for fluid overload. (7) Hypertension: Qualifiers: Hypertension type: essential hypertension Qualified Code(s): I10 - Essential (primary) hypertension (8) DVT (deep venous thrombosis): Qualifiers: DVT location: lower extremity Affected thrombotic vein of extremity: u nspecified lower extremity proximal vein Chronicity: chronic Laterality: b ilateral Qualified Code(s): I82.5Y3 - Chronic embolism and thrombosis of unspecified deep veins of proximal lower extremity, bilateral (9) Pulmonary embolism: Qualifiers: Pulmonary embolism type: unspecified Chronicity: chronic Acute cor pulmonale presence: without acute cor pulmonale Qualified Code(s): I27.82 - Chronic pulmonary embolism (10) Immunocompromised state: (11) 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 Received second chemotherapy cycle 3 weeks ago. (12) Iron deficiency anemia: Appreciate iron panel. Monitor hemoglobin daily. Start on oral iron supplementation. Qualifiers: Iron deficiency anemia type: other iron deficiency Qualified Code(s): D 50.8 - Other iron deficiency anemias (13) Hypomagnesemia: (14) Hypophosphatemia: (15) Orthostatic hypotension: Plan Replete electrolytes including magnesium and phosphorus. Monitor daily. Potassium: Stable. Jones catheterization as above for monitor urine output. Plan for the day: Continue with mechanical soft diet. Patient complaining of aspiration. Speech therapy and modified barium swallow study in AM. Continue with IV Zosyn. Follow-up stool studies. Repeat magnesium and phosphorus level in AM. For now continue with oral supplementation. Repeat orthostatic. If negative will discontinue IV fluids. Patient does have history of aortic stenosis. No concerns for CHF for now. Cough most likely in setting of aspiration versus COPD. X-ray on admission consistent with emphysema. Start on Tessalon Perles. Pulmicort twice daily, DuoNeb every 6 hours. Repeat chest x-ray. INR still elevated. Continue to hold off on Coumadin. Wean Solu-Medrol to 50 mg twice daily. Will plan to wean further and then discharged on oral steroid taper as an outpatient. Patient would benefit with low-dose steroid continuously as an outpatient. Discharge plan: Plan to discharge in next 24 to 48 hours if patient remains hemodynamically stable. Patient would benefit with home health as an outpatient. Full code Clear liquid diet Daughter is the DPOA. Protonix for PUD prophylaxis Supratherapeutic INR will be sufficient for medical prophylaxis. SCDs. Plan for today September 08, 2023. Discontinue IV hydrocortisone today. Transition instead to oral hydrocortisone 20 mg in a.m. and 10 mg in the evening for adrenal insufficiency. 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 This could additionally of explain patient's diarrhea, possibility of immune colitis. Called patient's primary oncologist Dr. Oro to discuss, however he is not available over the next week. There is no available on-call oncologist over the next week either. For now recommend patient to hold off on resuming pembrolizumab until she has followed up with Dr. Oro as outpatient. Continue levothyroxine. Noted to have mildly elevated TSH with low free T4. Will provide referral to endocrinology at the time of discharge for new adrenal insufficiency and known hypothyroidism. Awaiting modified barium swallow. Electrolytes trending towards hypernatremia and hypokalemia today. Supplemented hypokalemia with IV KCl 40 mEq. Lasix 20 mg IV today patient noted to have increased lower extremity swelling, appears to be hypervolemic overall. Monitor for any blood pressure changes which changed from IV to oral steroids. Blood cultures negative to date C. difficile PCR negative. Recheck INR with a.m. labs. Resume warfarin once INR is closer to 2. Attestations 2 Medical Necessity Statement*: Continued admission, transition from IV to oral steroids, assess for clinical response with this change. 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 IV diuretics today. Pending modified barium swallow. Coding Level of Care Code Acute Code for Chg Fwd High MDM includes number and complexity of problems actively addressed during encounter, amount and/or complexity of data reviewed/ordered and described risk of complication, morbidity or mortality of management as documented Diagnoses Shock R57.9 Diarrhea R19.7 Adrenal insufficiency E27.40 Supratherapeutic INR R79.1 Interstitial lung disease J84.9 Severe aortic valve stenosis I35.0 Essential hypertension I10 Hypertension type: essential hypertension Chronic deep vein thrombosis (DVT) of proximal vein of both lower extremities I82.5Y3 DVT location: lower extremity Affected thrombotic vein of extremity: unspecified lower extremity proximal vein Chronicity: chronic Laterality: bilateral Chronic pulmonary embolism without acute cor pulmonale, unspecified pulmonary embolism type I27.82 Pulmonary embolism type: unspecified Chronicity: chronic Acute cor pulmonale presence: without acute cor pulmonale Immunocompromised state D84.9 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
[2023-09-08] MEDS: FUROsemide 10 mg/mL SDV 2mL 20 MG IVP (17:29)
[2023-09-08] MEDS: lidocaine 1% 5 ML in potassium chloride premix 100 ML 26.25 ML IV (17:29)
[2023-09-08] MEDS: hydrocortisone 10 mg Tablet PO (17:42)
[2023-09-08] MEDS: acetaminophen 325 mg Tablet 650 MG PO (20:33)
[2023-09-09] VITALS (12 sets, daily range): BP systolic 91–103; BP diastolic 48–69; PULSE 90–99; RESP 16–20; TEMP 36.3–36.9; O2SAT 94–98; BMI 43.4
[2023-09-09] MEDS: guaiFENesin-dextromethorphan UDC 10 mL 5 ML PO ×2 (02:24→06:21)
[2023-09-09] MEDS: ipratropium-albuterol 3 mL Neb INHALATION ×2 (02:26→08:08)
[2023-09-09] MEDS: hydrocortisone 10 mg Tablet 20 MG PO (05:40)
[2023-09-09] MEDS: piperacillin-tazobactam 3.375 GM in sodium chloride 0.9% (plus) 50 ML IV ×2 (05:41→13:35)
[2023-09-09 05:56] LABS: Basophils % 0.2 %; Eosinophils # 0.1 10^3/uL (0.0-0.8); Eosinophils % 2.5 %; Hematocrit 25.7 % (36-47); Lymphocytes # 0.6 10^3/uL (0.8-4.8); Lymphocytes % 15.8 %; Mean Corpuscular HGB Conc 30.7 g/dL (30-55); Mean Corpuscular Hemoglobin 34.2 pg (27-33); Mean Corpuscular Volume 111.3 fl (85-98); Mean Platelet Volume 10.1 fL (7.4-10.4); Monocytes # 0.5 10^3/uL (0.2-0.9); Monocytes % 11.8 %; Neutrophils # 2.71 10^3/uL (1.8-7.7); Neutrophils % 66.7 %; Nucleated Red Blood Cells % 0.7 %; Platelet Count 179 10^3/cmm (157-399); Red Blood Count 2.31 10^6/uL (3.85-5.65); Red Cell Distribution Width 16.6 % (12.1-15.1); White Blood Count 4.06 10^3/uL (3.29-11.43)
[2023-09-09 06:20] LABS: Alanine Aminotransferase 17 U/L (0-33); Albumin Level 2.7 g/dL (3.5-5.2); Alkaline Phosphatase 50 U/L (35-105); Anion Gap 12.3 (5-19); Aspartate Amino Transferase 26 U/L (0-32); Blood Urea Nitrogen 6 mg/dL (8-23); Calcium 7.6 mg/dL (8.5-10.5); Carbon Dioxide 24 mmol/L (22-29); Chloride 111 mmol/L (98-107); Creatinine Clr Calc Pharmacy 71.0099; Globulin 2.2 g/dL (1.3-4.6); Glucose 83 mg/dL (65-115); Osmolality Calculated 295 mOsm/kg (285-295); Potassium 3.3 mmol/L (3.5-5.1); Sodium 144 mmol/L (136-145); Total Bilirubin 0.3 mg/dL (0.15-1.2); Total Protein 4.9 g/dL (6.6-8.7)
--- NOTE | 2023-09-09 08:00 | FL_ITS ---
WS: [id number] MODIFIED BARIUM SWALLOW TECHNIQUE: Modified barium swallow with speech therapy using multiple consistencies. FLUOROSCOPY TIME: 3min [id number] # of spot films: 0 CLINICAL INFORMATION: Oropharyngeal dysphagia FINDINGS: Multiple consistencies utilized. Penetration with thin liquids. Using the chin tuck maneuver penetrat ion resolved. No rhianna aspiration. Mild pooling in the vallecula with residual. This cleared with add itional swallows. No difficulties with the barium tablet. Slight anterolisthesis C4 on C5 in the cerv ical spine. FL/FL barium swallow modifd [id number] IMPRESSION: 1. Penetration with thin liquids which resolved with chin tuck maneuver 2. No rhianna aspiration. 3. Mild pooling in the vallecula with residual.
[2023-09-09] MEDS: budesonide 0.5 mg/2 mL Neb INHALATION ×2 (08:08→20:00)
[2023-09-09] MEDS: fluoxetine 20 mg Capsule PO (10:55)
[2023-09-09] MEDS: benzonatate 100 mg Capsule PO ×2 (10:55→19:46)
[2023-09-09] MEDS: phosphorus 250 mg Tablet PO ×2 (10:55→17:25)
[2023-09-09] MEDS: multivitamin therapeutic Tablet 1 TAB PO (10:56)
[2023-09-09] MEDS: cyanocobalamin 1,000 mcg Tablet 2500 MCG PO (10:56)
[2023-09-09] MEDS: magnesium oxide 400 mg tablet PO ×2 (10:56→17:26)
[2023-09-09] MEDS: levothyroxine 100 mcg Tablet PO (10:56)
--- NOTE | 2023-09-09 11:26 | PC.NURSE ---
Meds were late due to patient's NPO status and off unit for IVP
[2023-09-09] MEDS: pantoprazole 40 mg SDV IVP ×2 (11:31→19:45)
--- NOTE | 2023-09-09 15:28 | P.PN_ITS ---
Subjective 2 Subjective: Patient states she feels fatigued. Transition from IV to oral steroids yesterday. Today blood pressure is ranging soft between 91-1 03 systolic. INR continues to be at 5. Medications: Reviewed: Yes Vitals/I&O/Wt Last Vital Signs Temp 97.8 F 09/09/23 11:22 Pulse 94 09/09/23 11:22 Resp 18 09/09/23 11:22 BP 100/69 09/09/23 11:22 Pulse Ox 95 09/09/23 11:22 O2 Del Method Room Air 09/09/23 11:22 09/09/23 09/09/23 09/09/23 06:59 14:59 22:59 Intake Total 50 / 2215 530 / 530 Output Total 1100 / 2300 Balance -1050 / -85 530 / 530 Weight last 48 hrs Weight 122.101 kg Weight 120.23 kg Physical Exam 2 Narrative: General: No acute distress, AO x3 HEENT: PERRLA, pupils bilaterally equal and reactive, pallors not present Chest: Normal vesicular breath sounds, no added sounds, equal good air entry bilaterally CVS: S1-S2 regular, no murmurs, no tachycardia, no gallops, no rubs Abdomen: Soft, nontender, no organomegaly, bowel sounds present Neuro: No focal deficits, no facial deformity, AO x3, power 5/5 in all limbs Urinary Catheter Management: Jones: Cath Placed During This Visit: yes Reason for Continuing Indwelling Catheter: Acute Urinary Retention or Obstruction Urinary Catheter Date of Insertion: 09/05/23 Urinary Catheter Time of Insertion: 15:00 Data 09/09/23 05:35 09/09/23 05:35 Micro: Microbiology 09/07/23 04:45 Gram Stain - Final Sputum - Expectorated Sputum Sputum Culture - Final A&P Assessment and plan (1) Shock: Most likely septic versus hypovolemic shock. Plan for Cheetah examination. Ringer lactate 1 L fluid bolus followed by normal saline at 75 cc/h. Keep mean artery pressure 65, saturation over 90%. Start on empiric Zosyn for now. Stool studies awaited. Jones catheterization for strict input output charting. (2) Diarrhea: Check stool studies. CT abdomen pelvis with contrast. Patient has history of hematuria with renal stones. Monitor for colitis. Check stool studies. Empirically start on Zosyn for now as patient is in septic shock. IV fluid as above. Given immunocompromise status CMV panel was sent overnight. Will continue to follow. (3) Adrenal insufficiency: Appreciate random cortisol level. Start on hydrocortisone 100 mg IV one-time followed by 50 mg every 6 hourly. Will plan to rapidly wean down. (4) Supratherapeutic INR: On 10 mg of Coumadin as an outpatient 7 days a week. Target INR around 2.5. Currently more than 4. No active bleeding. Hemoglobin stable. Continue to hold off on Coumadin. Monitor INR daily. (5) Interstitial lung disease: Maintain saturation over 90%. Pulmicort twice daily, DuoNeb every 6 hours. On exacerbation for now. (6) Severe aortic valve stenosis: Last echocardiogram from June 2023 showed a normal EF with grade 1 diastolic dysfunction, moderate LVH, severe with mean gradient of 40, aortic valve area of 0.99, mild to moderate aortic regurgitation. Continue to monitor for fluid overload. (7) Hypertension: Qualifiers: Hypertension type: essential hypertension Qualified Code(s): I10 - Essential (primary) hypertension (8) DVT (deep venous thrombosis): Qualifiers: DVT location: lower extremity Affected thrombotic vein of extremity: u nspecified lower extremity proximal vein Chronicity: chronic Laterality: b ilateral Qualified Code(s): I82.5Y3 - Chronic embolism and thrombosis of unspecified deep veins of proximal lower extremity, bilateral (9) Pulmonary embolism: Qualifiers: Pulmonary embolism type: unspecified Chronicity: chronic Acute cor pulmonale presence: without acute cor pulmonale Qualified Code(s): I27.82 - Chronic pulmonary embolism (10) Immunocompromised state: (11) 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 Received second chemotherapy cycle 3 weeks ago. (12) Iron deficiency anemia: Appreciate iron panel. Monitor hemoglobin daily. Start on oral iron supplementation. Qualifiers: Iron deficiency anemia type: other iron deficiency Qualified Code(s): D 50.8 - Other iron deficiency anemias (13) Hypomagnesemia: (14) Hypophosphatemia: (15) Orthostatic hypotension: Plan Replete electrolytes including magnesium and phosphorus. Monitor daily. Potassium: Stable. Jones catheterization as above for monitor urine output. Plan for the day: Continue with mechanical soft diet. Patient complaining of aspiration. Speech therapy and modified barium swallow study in AM. Continue with IV Zosyn. Follow-up stool studies. Repeat magnesium and phosphorus level in AM. For now continue with oral supplementation. Repeat orthostatic. If negative will discontinue IV fluids. Patient does have history of aortic stenosis. No concerns for CHF for now. Cough most likely in setting of aspiration versus COPD. X-ray on admission consistent with emphysema. Start on Tessalon Perles. Pulmicort twice daily, DuoNeb every 6 hours. Repeat chest x-ray. INR still elevated. Continue to hold off on Coumadin. Wean Solu-Medrol to 50 mg twice daily. Will plan to wean further and then discharged on oral steroid taper as an outpatient. Patient would benefit with low-dose steroid continuously as an outpatient. Discharge plan: Plan to discharge in next 24 to 48 hours if patient remains hemodynamically stable. Patient would benefit with home health as an outpatient. Full code Clear liquid diet Daughter is the DPOA. Protonix for PUD prophylaxis Supratherapeutic INR will be sufficient for medical prophylaxis. SCDs. Plan for today September 08, 2023. Discontinue IV hydrocortisone today. Transition instead to oral hydrocortisone 20 mg in a.m. and 10 mg in the evening for adrenal insufficiency. 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 This could additionally of explain patient's diarrhea, possibility of immune colitis. Called patient's primary oncologist Dr. Oro to discuss, however he is not available over the next week. There is no available on-call oncologist over the next week either. For now recommend patient to hold off on resuming pembrolizumab until she has followed up with Dr. Oro as outpatient. Continue levothyroxine. Noted to have mildly elevated TSH with low free T4. Will provide referral to endocrinology at the time of discharge for new adrenal insufficiency and known hypothyroidism. Awaiting modified barium swallow. Electrolytes trending towards hypernatremia and hypokalemia today. Supplemented hypokalemia with IV KCl 40 mEq. Lasix 20 mg IV today patient noted to have increased lower extremity swelling, appears to be hypervolemic overall. Monitor for any blood pressure changes which changed from IV to oral steroids. Blood cultures negative to date C. difficile PCR negative. Recheck INR with a.m. labs. Resume warfarin once INR is closer to 2. Plan for today September 09, 2023. Continuing with hydrocortisone 20 mg in a.m. and 10 mg in the evening for adrenal insufficiency. Blood pressure soft ranging between 91-1 03 systolic, however patient currently denies any symptoms of dizziness nausea. Diarrhea continues to improve. Modified barium swallow was able to be completed, this showed penetration with thin liquids which resolved with a chin tuck maneuver. No rhianna aspiration. Sputum culture with respiratory palma. Blood culture remains negative to date . UA without signs of UTI. Chest x-ray from September [address] of the abdomen and pelvis from September 04 without significant abdominal pathology. Negative C. difficile PCR and viral respiratory panel. Discontinue IV piperacillin/tazobactam today and monitor closely. Patient has completed a presumptive 5-day course. Discontinuing today in the absence of any other localizing signs or symptoms of infection. INR continues to be high at 5, trending up in spite of holding Coumadin since admission. Trend with a.m. labs. Discussed with patient possibility of switching to alternate anticoagulant going forward once INR is closer to 2. Patient states she was placed on warfarin several years ago because of 2 episodes of DVT and was recommended lifelong anticoagulation. Attestations 2 Medical Necessity Statement*: continue oral steroids for adrenal insufficiency, monitor blood pressure over the next 24 hours, anticipate discharge if remains stable with discontinuing antibiotics and continuing oral steroids. Coding Level of Care Code Acute Code for Chg Fwd Moderate MDM includes number and complexity of problems actively addressed during encounter, amount and/or complexity of data reviewed/ordered and described risk of complication, morbidity or mortality of management as documented Diagnoses Shock R57.9 Diarrhea R19.7 Adrenal insufficiency E27.40 Supratherapeutic INR R79.1 Interstitial lung disease J84.9 Severe aortic valve stenosis I35.0 Essential hypertension I10 Hypertension type: essential hypertension Chronic deep vein thrombosis (DVT) of proximal vein of both lower extremities I82.5Y3 DVT location: lower extremity Affected thrombotic vein of extremity: unspecified lower extremity proximal vein Chronicity: chronic Laterality: bilateral Chronic pulmonary embolism without acute cor pulmonale, unspecified pulmonary embolism type I27.82 Pulmonary embolism type: unspecified Chronicity: chronic Acute cor pulmonale presence: without acute cor pulmonale Immunocompromised state D84.9 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
[2023-09-09] MEDS: hydrocortisone 10 mg Tablet PO (17:26)
[2023-09-10] VITALS (17 sets, daily range): BP systolic 90–127; BP diastolic 50–70; PULSE 84–102; RESP 16–20; TEMP 36.4–36.8; O2SAT 93–96
[2023-09-10] MEDS: ipratropium-albuterol 3 mL Neb INHALATION ×4 (03:31→19:57)
[2023-09-10] MEDS: hydrocortisone 10 mg Tablet 20 MG PO (05:14)
[2023-09-10 05:31] LABS: Basophils % 0.5 %; Eosinophils # 0.5 10^3/uL (0.0-0.8); Eosinophils % 12.2 %; Hematocrit 26.9 % (36-47); Lymphocytes # 0.7 10^3/uL (0.8-4.8); Lymphocytes % 16.5 %; Mean Corpuscular HGB Conc 30.5 g/dL (30-55); Mean Corpuscular Hemoglobin 34.6 pg (27-33); Mean Corpuscular Volume 113.5 fl (85-98); Monocytes # 0.5 10^3/uL (0.2-0.9); Neutrophils # 2.54 10^3/uL (1.8-7.7); Neutrophils % 58.2 %; Nucleated Red Blood Cells % 0 %; Platelet Count 201 10^3/cmm (157-399); Red Blood Count 2.37 10^6/uL (3.85-5.65); Red Cell Distribution Width 16.8 % (12.1-15.1); White Blood Count 4.36 10^3/uL (3.29-11.43)
[2023-09-10 05:48] LABS: Alanine Aminotransferase 16 U/L (0-33); Albumin Level 2.6 g/dL (3.5-5.2); Alkaline Phosphatase 49 U/L (35-105); Anion Gap 11.4 (5-19); Aspartate Amino Transferase 25 U/L (0-32); Blood Urea Nitrogen 7 mg/dL (8-23); Calcium 7.8 mg/dL (8.5-10.5); Carbon Dioxide 24 mmol/L (22-29); Chloride 111 mmol/L (98-107); Creatinine Clr Calc Pharmacy 70.8134; Globulin 2.2 g/dL (1.3-4.6); Glucose 91 mg/dL (65-115); Osmolality Calculated 294 mOsm/kg (285-295); Potassium 3.4 mmol/L (3.5-5.1); Sodium 143 mmol/L (136-145); Total Bilirubin 0.2 mg/dL (0.15-1.2); Total Protein 4.8 g/dL (6.6-8.7)
[2023-09-10] MEDS: budesonide 0.5 mg/2 mL Neb INHALATION ×2 (08:27→19:57)
[2023-09-10] MEDS: cyanocobalamin 1,000 mcg Tablet 2500 MCG PO (09:32)
[2023-09-10] MEDS: phosphorus 250 mg Tablet PO ×2 (09:32→18:16)
[2023-09-10] MEDS: magnesium oxide 400 mg tablet PO ×2 (09:32→18:16)
[2023-09-10] MEDS: multivitamin therapeutic Tablet 1 TAB PO (09:32)
[2023-09-10] MEDS: benzonatate 100 mg Capsule PO ×3 (09:33→21:47)
[2023-09-10] MEDS: levothyroxine 100 mcg Tablet PO (09:33)
[2023-09-10] MEDS: fluoxetine 20 mg Capsule PO (09:33)
[2023-09-10] MEDS: pantoprazole 40 mg SDV IVP ×2 (09:34→21:47)
[2023-09-10] MEDS: lidocaine 1% 5 ML in potassium chloride premix 100 ML 52.5 ML IV (11:17)
[2023-09-10 12:22] LABS: INR 3.07 (0.8-1.2)
--- NOTE | 2023-09-10 13:53 | P.PN_ITS ---
Subjective 2 Subjective: Blood pressure trend has remained stable since transition to oral steroids. Patient was planned to be discharged today, however patient now states that she is unable to carry on her ADLs by herself. Her daughter additionally reports that she will be unable to care for patient at home. There are several sick family members at home who are not in a position to take care of the patient. She would like to explore transition to SNF today. Medications: Reviewed: Yes Vitals/I&O/Wt Last Vital Signs Temp 98.2 F 09/10/23 12:00 Pulse 101 H 09/10/23 12:00 Resp 18 09/10/23 12:00 BP 127/70 09/10/23 12:00 Pulse Ox 93 09/10/23 11:05 O2 Del Method Room Air 09/10/23 11:05 09/09/23 09/10/23 09/10/23 22:59 06:59 14:59 Intake Total 630 / 1160 360 / 1520 360 / 360 Output Total 525 / 525 450 / 975 Balance 105 / 635 -90 / 545 360 / 360 Weight last 48 hrs Weight 121.517 kg Weight 122.101 kg Physical Exam 2 Narrative: General: No acute distress, AO x3 HEENT: PERRLA, pupils bilaterally equal and reactive, pallors not present Chest: Normal vesicular breath sounds, no added sounds, equal good air entry bilaterally CVS: S1-S2 regular, no murmurs, no tachycardia, no gallops, no rubs Abdomen: Soft, nontender, no organomegaly, bowel sounds present Neuro: No focal deficits, no facial deformity, AO x3, power 5/5 in all limbs Extremities: 1+ LE edema Urinary Catheter Management: Jones: Cath Placed During This Visit: yes Reason for Continuing Indwelling Catheter: Other Urinary Catheter Date of Insertion: 09/05/23 Urinary Catheter Time of Insertion: 15:00 Data 09/10/23 05:15 09/10/23 05:15 Micro: Microbiology 09/05/23 03:55 Blood Culture - Final Blood NO GROWTH AFTER 5 DAYS 09/05/23 03:52 Blood Culture - Final Blood NO GROWTH AFTER 5 DAYS 09/05/23 05:17 E. coli Shiga-like Toxin (PCR) - Final Stool Campylobacter (PCR) - Final 09/07/23 04:45 Gram Stain - Final Sputum - Expectorated Sputum Sputum Culture - Final A&P Assessment and plan (1) Shock: Most likely septic versus hypovolemic shock. Plan for Cheetah examination. Ringer lactate 1 L fluid bolus followed by normal saline at 75 cc/h. Keep mean artery pressure 65, saturation over 90%. Start on empiric Zosyn for now. Stool studies awaited. Jones catheterization for strict input output charting. (2) Diarrhea: Check stool studies. CT abdomen pelvis with contrast. Patient has history of hematuria with renal stones. Monitor for colitis. Check stool studies. Empirically start on Zosyn for now as patient is in septic shock. IV fluid as above. Given immunocompromise status CMV panel was sent overnight. Will continue to follow. (3) Adrenal insufficiency: Appreciate random cortisol level. Start on hydrocortisone 100 mg IV one-time followed by 50 mg every 6 hourly. Will plan to rapidly wean down. (4) Supratherapeutic INR: On 10 mg of Coumadin as an outpatient 7 days a week. Target INR around 2.5. Currently more than 4. No active bleeding. Hemoglobin stable. Continue to hold off on Coumadin. Monitor INR daily. (5) Interstitial lung disease: Maintain saturation over 90%. Pulmicort twice daily, DuoNeb every 6 hours. On exacerbation for now. (6) Severe aortic valve stenosis: Last echocardiogram from June 2023 showed a normal EF with grade 1 diastolic dysfunction, moderate LVH, severe with mean gradient of 40, aortic valve area of 0.99, mild to moderate aortic regurgitation. Continue to monitor for fluid overload. (7) Hypertension: Qualifiers: Hypertension type: essential hypertension Qualified Code(s): I10 - Essential (primary) hypertension (8) DVT (deep venous thrombosis): Qualifiers: DVT location: lower extremity Affected thrombotic vein of extremity: u nspecified lower extremity proximal vein Chronicity: chronic Laterality: b ilateral Qualified Code(s): I82.5Y3 - Chronic embolism and thrombosis of unspecified deep veins of proximal lower extremity, bilateral (9) Pulmonary embolism: Qualifiers: Pulmonary embolism type: unspecified Chronicity: chronic Acute cor pulmonale presence: without acute cor pulmonale Qualified Code(s): I27.82 - Chronic pulmonary embolism (10) Immunocompromised state: (11) 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 Received second chemotherapy cycle 3 weeks ago. (12) Iron deficiency anemia: Appreciate iron panel. Monitor hemoglobin daily. Start on oral iron supplementation. Qualifiers: Iron deficiency anemia type: other iron deficiency Qualified Code(s): D 50.8 - Other iron deficiency anemias (13) Hypomagnesemia: (14) Hypophosphatemia: (15) Orthostatic hypotension: Plan Replete electrolytes including magnesium and phosphorus. Monitor daily. Potassium: Stable. Jones catheterization as above for monitor urine output. Plan for the day: Continue with mechanical soft diet. Patient complaining of aspiration. Speech therapy and modified barium swallow study in AM. Continue with IV Zosyn. Follow-up stool studies. Repeat magnesium and phosphorus level in AM. For now continue with oral supplementation. Repeat orthostatic. If negative will discontinue IV fluids. Patient does have history of aortic stenosis. No concerns for CHF for now. Cough most likely in setting of aspiration versus COPD. X-ray on admission consistent with emphysema. Start on Tessalon Perles. Pulmicort twice daily, DuoNeb every 6 hours. Repeat chest x-ray. INR still elevated. Continue to hold off on Coumadin. Wean Solu-Medrol to 50 mg twice daily. Will plan to wean further and then discharged on oral steroid taper as an outpatient. Patient would benefit with low-dose steroid continuously as an outpatient. Discharge plan: Plan to discharge in next 24 to 48 hours if patient remains hemodynamically stable. Patient would benefit with home health as an outpatient. Full code Clear liquid diet Daughter is the DPOA. Protonix for PUD prophylaxis Supratherapeutic INR will be sufficient for medical prophylaxis. SCDs. Plan for today September 08, 2023. Discontinue IV hydrocortisone today. Transition instead to oral hydrocortisone 20 mg in a.m. and 10 mg in the evening for adrenal insufficiency. 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 This could additionally of explain patient's diarrhea, possibility of immune colitis. Called patient's primary oncologist Dr. Oro to discuss, however he is not available over the next week. There is no available on-call oncologist over the next week either. For now recommend patient to hold off on resuming pembrolizumab until she has followed up with Dr. Oro as outpatient. Continue levothyroxine. Noted to have mildly elevated TSH with low free T4. Will provide referral to endocrinology at the time of discharge for new adrenal insufficiency and known hypothyroidism. Awaiting modified barium swallow. Electrolytes trending towards hypernatremia and hypokalemia today. Supplemented hypokalemia with IV KCl 40 mEq. Lasix 20 mg IV today patient noted to have increased lower extremity swelling, appears to be hypervolemic overall. Monitor for any blood pressure changes which changed from IV to oral steroids. Blood cultures negative to date C. difficile PCR negative. Recheck INR with a.m. labs. Resume warfarin once INR is closer to 2. Plan for today September 09, 2023. Continuing with hydrocortisone 20 mg in a.m. and 10 mg in the evening for adrenal insufficiency. Blood pressure soft ranging between 91-1 03 systolic, however patient currently denies any symptoms of dizziness nausea. Diarrhea continues to improve. Modified barium swallow was able to be completed, this showed penetration with thin liquids which resolved with a chin tuck maneuver. No rhianna aspiration. Sputum culture with respiratory palma. Blood culture remains negative to date . UA without signs of UTI. Chest x-ray from September [address] of the abdomen and pelvis from September 04 without significant abdominal pathology. Negative C. difficile PCR and viral respiratory panel. Discontinue IV piperacillin/tazobactam today and monitor closely. Patient has completed a presumptive 5-day course. Discontinuing today in the absence of any other localizing signs or symptoms of infection. INR continues to be high at 5, trending up in spite of holding Coumadin since admission. Trend with a.m. labs. Discussed with patient possibility of switching to alternate anticoagulant going forward once INR is closer to 2. Patient states she was placed on warfarin several years ago because of 2 episodes of DVT and was recommended lifelong anticoagulation. Plan for today September 10, 2023. Blood pressure is better controlled today. Patient denies any symptoms with change in position. Continue hydrocortisone 20 mg in a.m. and 10 mg in evening for adrenal insufficiency. Suspect this to be immune mediated. Outpatient follow-up to be arranged with endocrinology for further assessment and future titration of steroids. She has remained stable after discontinuation of antibiotics yesterday. Overall infectious workup has remained nonrevealing. INR today at 3.0. Patient is interested in transitioning to DOAC from warfarin. This may be attempted closer to when INR is at 2. Ideally would have preferred to discuss this transition with patient's heme-onc, however Dr. Oro is not available until next week. As such I do not see any contraindication to make this transition. Patient has severe aortic stenosis. Clinically euvolemic today. Will hold Lasix for today and reassess next 24 hours. Patient is overall stable for discharge, however indicates that she does not feel strong enough to perform her ADLs. Currently her family members also reports that there are several sick family members at home and as such unable to take care of patient's needs. Reviewed physical therapy notes, exhibiting some decreased strength, decreased endurance. She is likely to benefit from continued skilled therapy. She was initially planned to be discharged home with home health, however now needs further safe disposition planning, perhaps transition to rehab. Hemoglobin stable today at 8.2. Threshold for transfusion at 8.0. Attestations 2 Medical Necessity Statement*: Continue oral steroids, continued admission for appropriate disposition planning is now ongoing. Coding Level of Care Code Acute Code for Chg Fwd Moderate MDM includes number and complexity of problems actively addressed during encounter, amount and/or complexity of data reviewed/ordered and described risk of complication, morbidity or mortality of management as documented Diagnoses Shock R57.9 Diarrhea R19.7 Adrenal insufficiency E27.40 Supratherapeutic INR R79.1 Interstitial lung disease J84.9 Severe aortic valve stenosis I35.0 Essential hypertension I10 Hypertension type: essential hypertension Chronic deep vein thrombosis (DVT) of proximal vein of both lower extremities I82.5Y3 DVT location: lower extremity Affected thrombotic vein of extremity: unspecified lower extremity proximal vein Chronicity: chronic Laterality: bilateral Chronic pulmonary embolism without acute cor pulmonale, unspecified pulmonary embolism type I27.82 Pulmonary embolism type: unspecified Chronicity: chronic Acute cor pulmonale presence: without acute cor pulmonale Immunocompromised state D84.9 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
[2023-09-10] MEDS: hydrocortisone 10 mg Tablet PO (18:16)
--- NOTE | 2023-09-10 22:36 | PC.NURSE ---
pt bladder scanned, 176 mL noted
[2023-09-10] MEDS: acetaminophen 500 mg Tablet 1000 MG PO (23:01)
[2023-09-11] VITALS (8 sets, daily range): BP systolic 101–103; BP diastolic 57–65; PULSE 90–104; RESP 17–20; TEMP 36.5–37.1; O2SAT 93–95
[2023-09-11] MEDS: hydrocortisone 10 mg Tablet 20 MG PO (05:23)
[2023-09-11 06:14] LABS: Basophils % 0.6 %; Eosinophils # 0.5 10^3/uL (0.0-0.8); Eosinophils % 9.4 %; Hematocrit 28.2 % (36-47); Lymphocytes # 0.9 10^3/uL (0.8-4.8); Lymphocytes % 17.2 %; Mean Corpuscular HGB Conc 30.5 g/dL (30-55); Mean Corpuscular Hemoglobin 34.5 pg (27-33); Mean Corpuscular Volume 113.3 fl (85-98); Mean Platelet Volume 10.2 fL (7.4-10.4); Monocytes # 0.6 10^3/uL (0.2-0.9); Monocytes % 11.4 %; Neutrophils # 3.09 10^3/uL (1.8-7.7); Neutrophils % 60.4 %; Nucleated Red Blood Cells % 0 %; Platelet Count 211 10^3/cmm (157-399); Red Blood Count 2.49 10^6/uL (3.85-5.65); Red Cell Distribution Width 17.2 % (12.1-15.1); White Blood Count 5.11 10^3/uL (3.29-11.43)
[2023-09-11 06:40] LABS: Alanine Aminotransferase 16 U/L (0-33); Albumin Level 2.8 g/dL (3.5-5.2); Alkaline Phosphatase 54 U/L (35-105); Anion Gap 11.9 (5-19); Aspartate Amino Transferase 25 U/L (0-32); Blood Urea Nitrogen 6 mg/dL (8-23); Calcium 7.8 mg/dL (8.5-10.5); Carbon Dioxide 25 mmol/L (22-29); Chloride 110 mmol/L (98-107); Creatinine Clr Calc Pharmacy 71.2562; Globulin 2.3 g/dL (1.3-4.6); Glucose 83 mg/dL (65-115); Osmolality Calculated 293 mOsm/kg (285-295); Potassium 3.9 mmol/L (3.5-5.1); Sodium 143 mmol/L (136-145); Total Bilirubin 0.3 mg/dL (0.15-1.2); Total Protein 5.1 g/dL (6.6-8.7)
[2023-09-11 07:22] LABS: INR 2.21 (0.8-1.2)
[2023-09-11] MEDS: budesonide 0.5 mg/2 mL Neb INHALATION (09:04)
[2023-09-11] MEDS: ipratropium-albuterol 3 mL Neb INHALATION (09:04)
[2023-09-11] MEDS: cyanocobalamin 1,000 mcg Tablet 2500 MCG PO (09:43)
[2023-09-11] MEDS: benzonatate 100 mg Capsule PO (09:44)
[2023-09-11] MEDS: fluoxetine 20 mg Capsule PO (09:44)
[2023-09-11] MEDS: multivitamin therapeutic Tablet 1 TAB PO (09:44)
[2023-09-11] MEDS: magnesium oxide 400 mg tablet PO (09:44)
[2023-09-11] MEDS: phosphorus 250 mg Tablet PO (09:44)
[2023-09-11] MEDS: levothyroxine 100 mcg Tablet PO (09:44)
[2023-09-11] MEDS: pantoprazole 40 mg SDV IVP (10:46)
--- NOTE | 2023-09-11 11:08 | PM.DCS ---
Discharge Providers Date of Admission: 09/05/23 02:02 Date of Discharge: September 11, 2023 Attending Provider at Admission: Warren Coyle MD Attending Provider at Discharge: Omaira Donnelly MD Primary Care Provider: Sánchez Macario Diagnoses at Discharge Discharge Diagnosis (1) Shock: Details from hospital stay: Resolved Status: Acute (2) Diarrhea: Status: Acute (3) Adrenal insufficiency: Status: Acute (4) Supratherapeutic INR: Details from hospital stay: Resolved Status: Acute (5) Interstitial lung disease: Status: Acute (6) Severe aortic valve stenosis: Status: Acute (7) Hypertension: Status: Acute Qualifiers: Hypertension type: essential hypertension Qualified Code(s): I10 - Essential (primary) hypertension (8) DVT (deep venous thrombosis): Status: Acute Qualifiers: Affected thrombotic vein of extremity: unspecified lower extremity proximal vein Chronicity: chronic DVT location: lower extremity Laterality: bilateral Qualified Code(s): I82.5Y3 - Chronic embolism and thrombosis of unspecified deep veins of proximal lower extremity, bilateral (9) Pulmonary embolism: Status: Acute Qualifiers: Acute cor pulmonale presence: without acute cor pulmonale Chronicity: chronic Pulmonary embolism type: unspecified Qualified Code(s): I27.82 - Chronic pulmonary embolism (10) Immunocompromised state: Status: Acute (11) 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 She is admitted to the ICU and started on IV pressors. She was found to have adrenal insufficiency. She also had supratherapeutic INR. She was on warfarin for history of pulmonary embolism and DVT. Hospital Course Hospital Course Her shock was thought to be from hypovolemia versus sepsis. She was started on empiric IV antibiotics with Zosyn. No definitive source of infection was found. She has been stable off of IV antibiotics. She was noted to have adrenal insufficiency and will be discharged on hydrocortisone 20 mg daily and 10 mg nightly. She also had a supratherapeutic INR. She was on warfarin for DVT and PE. However INR is improved and patient was okay with switching to DOAC. She was discharged home on apixaban. She has severe aortic valve stenosis. Her last echo was in June 2023 which showed normal EF with grade 1 diastolic dysfunction. Mean gradient was 40 and DORCAS was 0.99. She has been evaluated for TAVR. She also has interstitial lung disease which is stable. She developed restless legs during this admission. She denies previous history of this. Consider starting her on ropinirole if this continues. She has generalized weakness and did not feel like she was strong enough to perform her ADLs. She will be transferred to SNF in stable condition. Physical Exam Const: COMMON NORMALS: no acute distress and patient oriented x3 HENMT: COMMON NORMALS: normocephalic and atraumatic HEAD & SCALP: normocephalic and atraumatic Eye: COMMON NORMALS: Equal, round and reactive pupils present and EOMs intact bilaterally PUPIL: Yes Equal, round and reactive pupils present Neck/C-Spine: COMMON NORMALS: supple and no JVD Chest: COMMONS NORMALS: normal inspection of the chest Resp: COMMON NORMALS: normal respiratory effort and clear to auscultation bilaterally AUSCULTATION: clear to auscultation bilaterally Cardio: COMMON NORMALS: no JVD, regular rate, regular rhythm, S1 normal heart sound present, S2 normal heart sound present, No gallops present (Cardio), No murmurs present (Cardio) and No rub (Cardio) RATE: regular rate RHYTHM: regular rhythm HEART SOUNDS: S1 normal heart sound present and S2 normal heart sound present GI: COMMON NORMALS: Normal to inspection, nondistended, normoactive bowel sounds present Extremity: COMMON NORMALS: normal to inspection and no pedal edema Neuro: COMMON NORMALS: patient oriented x3 Psych: COMMON NORMALS: Normal thought process present and cooperative THOUGHT PROCESS: Normal thought process present Skin: COMMON NORMALS: no rashes or lesions noted GENERAL SKIN EXAM: no rashes or lesions noted Urinary Catheter Management: Jones: Cath Placed During This Visit: yes, but has since been removed by the nurse Reason for Continuing Indwelling Catheter: Other Urinary Catheter Date of Insertion: 09/05/23 Urinary Catheter Time of Insertion: 15:00 Date Urinary Catheter Removed: 09/10/23 Time Urinary Catheter Discontinued: 18:12 Discharge Data Studies Completed and Pending Completed Studies During Hospitalization Category Date Time Status CT abdomen pelvis w con* [id number] Routine Cat Scan 09/05/23 11:57 Completed FL barium swallow modifd [id number] Routine Exams 09/09/23 08:00 Completed XR chest 1V portable [id number] Routine Exams 09/07/23 11:21 Completed Pending at discharge Category Date Time Status OVA and Parasites, Conc and PE Routine Lab 09/05/23 05:17 Results Salmonella / Shigella / Campy Routine Lab 09/05/23 05:17 Results Radiology Impressions Abdomen/Pelvis CT 09/05/23 11:57 IMPRESSION: 1. No acute chest disease. 2. Stable pulmonary nodules dating back to 2021 consistent with benign pathology; no further follow-up required per Fleischner criteria. 3. Minor findings described above. IMPRESSION: No acute pathology. Multiple minor findings as noted above unchanged compared with the prior study. Chest X-Ray 09/07/23 11:21 IMPRESSION: 1. No acute findings. 2. Right side central line in good position Modified Barium Swallow 09/09/23 08:00 IMPRESSION: 1. Penetration with thin liquids which resolved with chin tuck maneuver 2. No rhianna aspiration. 3. Mild pooling in the vallecula with residual. Laboratory Results WBC 5.11 10^3/uL (3.29-11.43) 09/11/23 05:26 Corrected WBC Cancelled 09/06/23 04:11 RBC 2.49 10^6/uL (3.85-5.65) L 09/11/23 05:26 Hgb 8.60 g/dL (11.27-16.99) L 09/11/23 05:26 Hct 28.2 % (36-47) L 09/11/23 05:26 MCV 113.3 fl (85-98) H 09/11/23 05:26 MCH 34.5 pg (27-33) H 09/11/23 05:26 MCHC 30.5 g/dL (30-55) 09/11/23 05:26 RDW 17.2 % (12.1-15.1) H 09/11/23 05:26 Plt Count 211 10^3/cmm (157-399) 09/11/23 05:26 MPV 10.2 fL (7.4-10.4) 09/11/23 05:26 Gran % Cancelled 09/06/23 04:11 Neut % (Auto) 60.4 % 09/11/23 05:26 Lymph % (Auto) 17.2 % 09/11/23 05:26 [place] % (Auto) 11.4 % 09/11/23 05:26 Eos % (Auto) 9.4 % 09/11/23 05:26 Baso % (Auto) 0.6 % 09/11/23 05:26 Neut # (Auto) 3.09 10^3/uL (1.8-7.7) 09/11/23 05:26 Lymph # (Auto) 0.9 10^3/uL (0.8-4.8) 09/11/23 05:26 [place] # (Auto) 0.6 10^3/uL (0.2-0.9) 09/11/23 05:26 Eos # (Auto) 0.5 10^3/uL (0.0-0.8) 09/11/23 05:26 Baso # (Auto) 0.0 10^3/uL (0.0-0.1) 09/11/23 05:26 Absolute Gran (auto) Cancelled 09/06/23 04:11 Nucleated RBC % (auto) 0 % 09/11/23 05:26 Nucleated RBCs # 0.0 /100WBC 09/11/23 05:26 ESR 41 mm/hr (0-15) H 09/05/23 03:52 PT 25.40 SECONDS (12.1-14.9) H 09/11/23 05:26 INR 2.21 (0.8-1.2) H 09/11/23 05:26 Sodium 143 mmol/L (136-145) 09/11/23 05:26 Potassium 3.9 mmol/L (3.5-5.1) 09/11/23 05:26 Chloride 110 mmol/L (98-107) H 09/11/23 05:26 Carbon Dioxide 25 mmol/L (22-29) 09/11/23 05:26 Anion Gap 11.9 (5-19) 09/11/23 05:26 BUN 6 mg/dL (8-23) L 09/11/23 05:26 Creatinine 0.6 mg/dL (0.5-0.9) 09/11/23 05:26 GFR Calculation Not Reportable 09/11/23 05:26 Glucose 83 mg/dL (65-115) 09/11/23 05:26 Estimat Average Glucose 85 09/05/23 03:52 Hemoglobin A1c 4.6 % (4.0-6.0) 09/05/23 03:52 Calculated Osmolality 293 mOsm/kg (285-295) 09/11/23 05:26 Lactic Acid 0.8 mmol/L (0.5-2.2) 09/05/23 03:52 Calcium 7.8 mg/dL (8.5-10.5) L 09/11/23 05:26 Phosphorus 1.0 mg/dL (2.5-4.5) L 09/05/23 03:52 Magnesium 2.1 mg/dL (1.7-2.3) 09/08/23 06:10 Iron 34 ug/dL (37-145) L 09/05/23 03:52 TIBC 130 mcg/dl 09/05/23 03:52 % Saturation 26.1 % (20-50) 09/05/23 03:52 Unsat Iron Binding 96 ug/dL (112-347) L 09/05/23 03:52 Ferritin 564 ng/mL (15-150) H 09/05/23 03:52 Total Bilirubin 0.3 mg/dL (0.15-1.2) 09/11/23 05:26 AST 25 U/L (0-32) 09/11/23 05:26 ALT 16 U/L (0-33) 09/11/23 05:26 Alkaline Phosphatase 54 U/L (35-105) 09/11/23 05:26 Creatine Kinase 224 U/L (26-192) H 09/05/23 03:52 Troponin T Baseline 47 ng/L (0-10) H 09/05/23 03:52 Troponin T 120 Minute 45.23 ng/L (0-10) H 09/05/23 05:39 Delta Troponin T -1.77 ABS# (0-10) L 09/05/23 05:39 Troponin T Hi Sens 6Hr 40.88 ng/L (0-10) H 09/05/23 09:53 Troponin T Hi Sens 6Hr Delta -6.12 ng/L (0-12) L 09/05/23 09:53 C-Reactive Protein 65.4 mg/L (0.0-4.9) H 09/05/23 03:52 Total Protein 5.1 g/dL (6.6-8.7) L 09/11/23 05:26 Albumin 2.8 g/dL (3.5-5.2) L 09/11/23 05:26 Globulin 2.3 g/dL (1.3-4.6) 09/11/23 05:26 Triglycerides 284 mg/dL (0-150) H 09/05/23 03:52 Cholesterol 170 mg/dL (0-200) 09/05/23 03:52 LDL Cholesterol, Calc 99 mg/dL (50-129) 09/05/23 03:52 HDL Cholesterol 14 mg/dL (60-100) L 09/05/23 03:52 LDL/HDL Ratio 7.07 RATIO (0.00-3.22) H 09/05/23 03:52 Cholesterol/HDL Ratio 12.14 mg/dL (0.0-4.40) H 09/05/23 03:52 Vitamin B12 > 2000 pg/mL (232-1245) H 09/05/23 03:52 Folate 14.9 ng/mL (4.8-37.3) 09/06/23 05:24 Procalcitonin 0.47 ng/mL (0-0.5) 09/05/23 03:52 TSH 5.96 uIU/mL (0.27-4.20) H 09/05/23 03:52 Free T4 1.16 ng/dL (0.82-1.77) 09/05/23 03:52 Free T3 1.7 PG/ML (2.0-4.4) L 09/05/23 03:52 Random Cortisol 2.20 ug/dL (2.47-19.5) L 09/05/23 03:52 Urine Color Yellow (Yellow) 09/05/23 15:00 Urine Appearance Clear (CLEAR) 09/05/23 15:00 Urine pH 5 (5-7) 09/05/23 15:00 Ur Specific [place] 1.010 (1.005-1.030) 09/05/23 15:00 Urine Protein Neg (Negative) 09/05/23 15:00 Urine Glucose (UA) Norm (Normal) 09/05/23 15:00 Urine Ketones 1+ (Negative) H 09/05/23 15:00 Urine Blood Neg (Negative) 09/05/23 15:00 Urine Nitrate Negative (Negative) 09/05/23 15:00 Urine Bilirubin 1+ (Negative) H 09/05/23 15:00 Urine Urobilinogen Norm mg/dL (Negative) 09/05/23 15:00 Ur Leukocyte Esterase Negative (Negative) 09/05/23 15:00 Ur Random Sodium 19 mmol/L 09/05/23 15:00 Ur Random Potassium 33 mmol/L 09/05/23 15:00 Ur Random Chloride 49 mmol/L 09/05/23 15:00 Adenovirus (PCR) Not detected (NOT DETECT) 09/05/23 13:35 C. pneumoniae DNA (PCR) Not detected (NOT DETECT) 09/05/23 13:35 C. difficile (PCR) Negative (Negative) 09/05/23 05: Coronavirus 229E (PCR) Not detected (NOT DETECT) 09/05/23 13:35 CMV IgG Ab <0.60 U/mL 09/05/23 03:52 CMV IgM Ab <30.00 AU/mL 09/05/23 03:52 Human Metapneumovir PCR Not detected (NOT DETECT) 09/05/23 13:35 Influenza A (H1) PCR Not detected (NOT DETECT) 09/05/23 13:35 Influ A (H1/09) PCR Not detected (NOT DETECT) 09/05/23 13:35 Influenza A (H3) PCR Not detected (NOT DETECT) 09/05/23 13:35 Influenza Type A (PCR) Not detected (NOT DETECT) 09/05/23 13:35 Influenza Type B (PCR) Not detected (NOT DETECT) 09/05/23 13:35 M. pneumoniae (PCR) Not detected (NOT DETECT) 09/05/23 13:35 Parainfluenza 1 (PCR) Not detected (NOT DETECT) 09/05/23 13:35 Parainfluenza 2 (PCR) Not detected (NOT DETECT) 09/05/23 13:35 Parainfluenza 3 (PCR) Not detected (NOT DETECT) 09/05/23 13:35 Parainfluenza 4 (PCR) Not detected (NOT DETECT) 09/05/23 13:35 RSV Type A (PCR) Not detected (NOT DETECT) 09/05/23 13:35 RSV Type B (PCR) Not detected (NOT DETECT) 09/05/23 13:35 Entero/Rhino (PCR) Not detected (NOT DETECT) 09/05/23 13:35 SARS-CoV-2 (PCR) Not detected (NOT DETECT) 09/05/23 13:35 Vitals Last Vital Signs Temp 98.3 F 09/11/23 07:44 Pulse 95 09/11/23 09:16 Resp 20 H 09/11/23 09:00 BP 103/64 09/11/23 07:44 Pulse Ox 94 09/11/23 09:09 O2 Del Method Room Air 09/11/23 09:09 Discharge Plan Discharge Patient Disposition: Xfer SNF Condition: Stable Prescriptions: New hydrocortisone 10 mg Tablet 10 mg PO QPM 30 Days Qty: 30 0RF hydrocortisone 10 mg Tablet 20 mg PO QAM 30 Days Qty: 60 0RF Eliquis 5 mg tablet 5 mg PO BID Qty: 60 0RF Continued diphenhydramine HCl [Benadryl] 25 mg capsule 25 mg PO TID PRN (Reason: Itching) vitamin B complex [B Complex-Vitamin B12] Tablet 1 tab PO DAILY calcium carb,lactat-vitamin D3 200 mg calcium -250 unit tablet 1 tab PO QAM meclizine 25 mg tablet 25 mg PO TID multivitamin Tablet 1 tab PO DAILY tolterodine 4 mg capsule,extended release 24hr 4 mg PO DAILY fluoxetine [Prozac] 20 mg capsule 20 mg PO DAILY levothyroxine 100 mcg capsule 100 mcg PO DAILY red yeast rice 600 mg capsule 600 mg PO BID Rx Instructions: give with meal/snack potassium chloride 10 mEq capsule, extended release 10 meq PO DAILY Prolia 60 mg/mL syringe 60 mg SUBCUT Q6M cyanocobalamin (vitamin B-12) 2,500 mcg tablet 2,500 mcg PO DAILY vitamin E mixed 1,000 unit capsule 4,000 unit PO DAILY albuterol sulfate [Ventolin HFA] 90 mcg/actuation HFA aerosol inhaler 1 inh inhalation QID PRN (Reason: shortness of breath or wheezing) Qty: 8.5 3RF selenium 50 mcg tablet 50 mcg PO DAILY (DME) Nebulizer and accessory kit See Rx Instructions .Route .MEDSUPPLY Qty: 1 0RF Patient Comments: Patient states that they do not have the machine. Rx Instructions: As directed fluconazole 100 mg tablet 100 mg PO DAILY 5 Days Qty: 5 0RF (DME) custom inserts See Rx Instructions .Route .MEDSUPPLY Qty: 1 0RF Rx Instructions: As directed lidocaine-prilocaine 2.5-2.5 % cream 1 applic topical ONCE levalbuterol HCl 0.63 mg/3 mL solution for nebulization 0.63 mg inhalation TID PRN (Reason: shortness of breath or wheezing) Qty: 75 2RF Patient Comments: Unable to take since they do not have a machine for it at home. Rx Instructions: DNExceed 3 doses/24h enoxaparin [Lovenox] 100 mg/mL syringe 100 mg SUBCUT DAILY Qty: 10 0RF Patient Comments: Patient states that they are not taking that anymore. Rx Instructions: 100 mg today acetaminophen [Tylenol] 325 mg capsule 325 mg PO Q6H Qty: 14 0RF ondansetron 4 mg tablet,disintegrating 4 mg PO Q6H PRN (Reason: nausea and vomiting) Qty: 20 0RF diphenoxylate-atropine [Lomotil] 2.5-0.025 mg tablet 1 tab PO BID PRN (Reason: diarrhea) Qty: 10 0RF lorazepam 1 mg tablet 0.5 - 1 mg PO Q6H PRN (Reason: Severe Nausea) Qty: 30 3RF lorazepam 1 mg tablet 0.5 - 1 mg PO Q6H PRN (Reason: Severe Nausea) Qty: 30 3RF Changed Lasix 20 mg tablet 20 mg PO DAILY PRN (Reason: edema) Qty: 30 0RF Discontinued warfarin 5 mg tablet 10 mg PO DAILY Patient Comments: Patient states that their provider has stopped this medication. Rx Instructions: per INR results levofloxacin 500 mg tablet 500 mg PO DAILY 7 Days Qty: 7 0RF prednisone 10 mg tablet 20 mg PO BID Qty: 30 0RF Patient Comments: Patient states that they are tapering away from it. Discharge Orders: Discharge Order (Routine); Ordered 09/11/23 Ordered By: Omaira Donnelly Other Ambulatory Orders: Complete Blood Count w/Auto (Routine) Timeframe: 1 Week Location: Determined by Patient Ordered By: Omaira Donnelly Referrals: [facility] [Outside] Maverick Wilson MD [Physician] - 09/16/23 8:00 am (adrenal insufficiency ? related to immunotherapy ) Discharge Diet: As Directed Discharge Activity: Resume usual activity Patient Instructions: Opioid Safety Discharge Attestations Time Spent in Discharge Care*: greater than 30 min Specific Discharge Activities: educating patient, discussing with case finisher/social workers/dc planners, documenting/other paperwork and evaluating patient/reviewing data Quality Metrics Clinical Quality Measures [ No reported AMI, CVA or VTE this stay] Coding Level of Care Code Acute Code for Chg Fwd Diagnoses Shock R57.9 Diarrhea R19.7 Adrenal insufficiency E27.40 Supratherapeutic INR R79.1 Interstitial lung disease J84.9 Severe aortic valve stenosis I35.0 Essential hypertension I10 Hypertension type: essential hypertension Chronic deep vein thrombosis (DVT) of proximal vein of both lower extremities I82.5Y3 Affected thrombotic vein of extremity: unspecified lower extremity proximal vein Chronicity: chronic DVT location: lower extremity Laterality: bilateral Chronic pulmonary embolism without acute cor pulmonale, unspecified pulmonary embolism type I27.82 Acute cor pulmonale presence: without acute cor pulmonale Chronicity: chronic Pulmonary embolism type: unspecified Immunocompromised state D84.9 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
--- NOTE | 2023-09-11 12:28 | PC.NURSE ---
1214- This nurse called report to Mere at [facility]. All questions addressed at this time.
== END 2023-09-11 13:41 | disposition skilled nursing facility (03) | DRG 643 ==
LOC: ICU 08:01 → MEDSURG 09-06 18:33
PROVIDERS: Student in an Organized Health Care Education/Training Program; Admitting Provider Family Medicine; PCP Family Medicine; Visit Provider Student in an Organized Health Care Education/Training Program
DX: E27.40 Unspecified adrenocortical insufficiency (principal); R57.1 Hypovolemic shock; J84.9 Interstitial pulmonary disease, unspecified; D84.821 Immunodeficiency due to drugs; R19.7 Diarrhea, unspecified; I35.0 Nonrheumatic aortic (valve) stenosis; I10 Essential (primary) hypertension; Z86.718 Personal history of other venous thrombosis and embolism; Z79.01 Long term (current) use of anticoagulants; Z86.711 Personal history of pulmonary embolism; T45.1X5A Adverse effect of antineoplastic and immunosuppressive drugs, initial encounter; Y99.9 Unspecified external cause status; E03.9 Hypothyroidism, unspecified; E86.0 Dehydration; D50.9 Iron deficiency anemia, unspecified; E83.42 Hypomagnesemia; E83.39 Other disorders of phosphorus metabolism; I95.1 Orthostatic hypotension; G25.81 Restless legs syndrome; C50.412 Malignant neoplasm of upper-outer quadrant of left female breast; R79.1 Abnormal coagulation profile
CPT/HCPCS: 36415; 36591; 51702; 71045; 74177; 74230; 80048; 80053; 80061; 81003; 82274; 82436; 82533; 82550; 82607; 82728; 82746; 83036; 83540; 83550; 83605; 83630; 83735; 84100; 84133; 84145; 84300; 84439; 84443; 84481; 84484; 85025; 85610; 85651; 86140; 86403; 87040; 87045; 87070; 87177; 87205; 87209; 87427; 87449; 87486; 87493; 87581; 87633; 92523; 92526; 92610; 92611; 93005; 94640; 94664; 96376; 97110; 97116; 97163; 97530; C9113; J1720; J1940; J2543; J3475; J3480; J3490; J7030; J7120; J7626; J8499; Q9967

== ENCOUNTER 2023-09-22 11:14 | Outpatient (CLI) | payer MEDICARE, MEDICAID, SELFPAY | END 2023-09-22 11:15 | disposition home or self-care (01) | LOC: SPT 11:14 | PROVIDERS: PCP Family Medicine; Visit Provider Podiatrist Foot & Ankle Surgery | DX: Z46.89 Encounter for fitting and adjustment of other specified devices (principal); M21.40 Flat foot [pes planus] (acquired), unspecified foot | CPT/HCPCS: 97760; L3030 ==

== ENCOUNTER 2023-10-21 08:58 | Oncology outpatient (recurring) (ONCR) | payer MEDICARE, MEDICAID, SELFPAY ==
[2023-10-21 09:24] LABS: Basophils % 0.1 %; Eosinophils # 0.2 10^3/uL (0.0-0.8); Eosinophils % 2.7 %; Hematocrit 33.9 % (36-47); Lymphocytes # 0.8 10^3/uL (0.8-4.8); Lymphocytes % 10.9 %; Mean Corpuscular HGB Conc 31.3 g/dL (30-55); Mean Corpuscular Hemoglobin 33.7 pg (27-33); Mean Corpuscular Volume 107.6 fl (85-98); Mean Platelet Volume 9.8 fL (7.4-10.4); Monocytes # 0.6 10^3/uL (0.2-0.9); Monocytes % 8.3 %; Neutrophils # 5.39 10^3/uL (1.8-7.7); Neutrophils % 77.1 %; Nucleated Red Blood Cells % 0 %; Platelet Count 192 10^3/cmm (157-399); Red Blood Count 3.15 10^6/uL (3.85-5.65); Red Cell Distribution Width 14.6 % (12.1-15.1); White Blood Count 6.99 10^3/uL (3.29-11.43)
[2023-10-21 09:47] LABS: Alanine Aminotransferase 20 U/L (0-33); Albumin Level 3.4 g/dL (3.5-5.2); Alkaline Phosphatase 50 U/L (35-105); Anion Gap 12.7 (5-19); Aspartate Amino Transferase 21 U/L (0-32); Blood Urea Nitrogen 31 mg/dL (8-23); Calcium 9.3 mg/dL (8.5-10.5); Carbon Dioxide 25 mmol/L (22-29); Chloride 105 mmol/L (98-107); Globulin 2.5 g/dL (1.3-4.6); Glucose 94 mg/dL (65-115); Osmolality Calculated 292 mOsm/kg (285-295); Potassium 4.7 mmol/L (3.5-5.1); Sodium 138 mmol/L (136-145); Thyroid Stimulating Hormone 6.79 uIU/mL (0.27-4.20); Total Bilirubin 0.2 mg/dL (0.15-1.2); Total Protein 5.9 g/dL (6.6-8.7)
== END 2023-11-19 23:59 | disposition home or self-care (01) ==
LOC: ONCMED 08:59
PROVIDERS: PCP Family Medicine; Visit Provider Internal Medicine Medical Oncology
DX: C50.412 Malignant neoplasm of upper-outer quadrant of left female breast (principal); E78.5 Hyperlipidemia, unspecified; Z79.899 Other long term (current) drug therapy
CPT/HCPCS: 80053; 84443; 85025; 99214

== ENCOUNTER 2023-10-31 11:34 | Emergency (ER) | payer MEDICARE, MEDICAID, SELFPAY ==
[2023-10-31 11:44] VITALS: BP 105/49; PULSE 84; TEMP 36.4; O2SAT 96; BMI 38.0
--- NOTE | 2023-10-31 11:58 | W.ED.LOWEXIN ---
HPI - Extremity Injury (Lower) General: Chief Complaint: Extremity Injury, Lower Stated Complaint: fall, right foot pain Time Seen by Provider: 10/31/23 11:55 Source: patient Mode of arrival: EMS Limitations: no limitations History of Present Illness: Patient is a nice 83-year-old female presents to ED today with complaint of right ankle pain that she sustained just earlier today following a fall. Patient states she was going up her front steps when she fell onto her buttocks. She states the right ankle somehow got caught in the door jam . She states she cannot bear weight on the ankle secondary to pain. She denies any other injury sustained during the fall. She denies striking her head or LOC. No neck or back pain. She is not having any hip or knee pain. MD complaint: ankle injury and fall Onset (ago): hour(s) Injury: Right: ankle Place: home Severity: moderate Relieving factors: immobilization Exacerbating factors: weight bearing, movement and palpation Context: fall and direct blow Associated symptoms: Reports inability to bear weight Other symptoms: none Review of Systems Musc: Reports: joint pain (R ankle); Denies: neck pain, back pain or joint swelling Neuro: Denies: headache(s) PFSH ED PFSH: Medical History Adrenal insufficiency Reversible airway obstruction Lesion of right [place] ureter History of recurrent UTI (urinary tract infection) Pulmonary nodules Interstitial lung disease Asthma Breast cancer Hydronephrosis of right kidney Gross hematuria Osteoporosis Arthritis Aortic stenosis Hypertension DVT (deep venous thrombosis) Pulmonary embolism Obesity Surgical History Hx of tubal ligation Hx of cystoscopy Hx of colonoscopy Age 65 Hx of cholecystectomy H/O: hysterectomy Hx of cataract surgery S/P tonsillectomy Family History Father , AT 92 Congestive heart failure (CHF) Mother , AT 100 of unknown cause Other CAD (coronary artery disease) Cancer Diabetes Hyperlipidemia Hypertension Stroke Denies family history of Psychiatric illness Chronic kidney disease (CKD) Suicide Family history of premature coronary artery disease Lung disease Social History Smoking and tobacco/nicotine status: never used tobacco/nicotine Alcohol intake: never Substance/Drug Use: never Marital status: / Current occupational status: retired and disabled Physical Exam Const: COMMON NORMALS: no acute distress, patient oriented x3, no limitations, healthy appearing, alert and well nourished GENERAL APPEARANCE: cooperative ORIENTATION/CONSCIOUSNESS: Yes awake, Yes oriented to person, Yes oriented to place and Yes oriented to time HENMT: COMMON NORMALS: normocephalic and atraumatic HEAD & SCALP: normal to inspection, normocephalic and atraumatic Neck/C-Spine: COMMON NORMALS: full ROM CERVICAL SPINE: No pain with cervical ROM and No Cervical spine tenderness Back/Pelvis: COMMON NORMALS: thoracic and lumbar spine normal to inspection Extremity: COMMON NORMALS: capillary refill normal and no calf tenderness GENERAL: Yes normal exam except as noted RIGHT LOWER EXTREMITY: Yes foot & digits (no obvious bony deformities) Right ankle: Yes palpation (TTP) and Yes neurovascular exam (normal) and Yes foot & digits Right foot and digits: Yes palpation (TTP dorsal) and Yes neurovascular exam (normal) Neuro: COMMON NORMALS: patient oriented x3, moves all extremities, no focal motor deficits and no sensory deficits noted SENSORIUM/ORIENTATION: Yes alert, Yes oriented to person, Yes oriented to place and Yes oriented to time Skin: TRAUMA: no lacerations or abrasions Course Vital Signs: Vital signs: Vital Signs Temperature 97.6 F 10/31/23 11:44 Pulse Rate 85 10/31/23 12:11 Blood Pressure 106/57 10/31/23 12:11 Pulse Oximetry 97 10/31/23 12:11 Oxygen Delivery Me thod Room Air 10/31/23 12:11 MDM - Extremity Injury (Lower) Medical Decision Making XRs unremarkable. States she has a walker that she feels comfortable using for ambulation. RICE therapy discussed. Will GUILLERMO wrap. Follow up with PCP in 1-2 weeks for continued pain. Return precautions discussed. Medical Records I reviewed the patient's medical records. Lab Data Radiology Impressions Ankle X-Ray 10/31/23 12:01 IMPRESSION: No acute abnormality. Foot X-Ray 10/31/23 12:01 IMPRESSION: No acute findings. All radiology interpretation(s) finalized by discharge Discharge Plan Discharge Patient Disposition: Home Clinical Impression: Sprain of ankle, right Qualifiers: Encounter type: initial encounter Involved ligament of ankle: unspecified ligament Qualified Code(s): S93.401A - Sprain of unspecified ligament of right ankle, initial encounter Condition: Stable Prescriptions: No Action diphenhydramine HCl [Benadryl] 25 mg capsule 25 mg PO TID PRN (Reason: Itching) vitamin B complex [B Complex-Vitamin B12] Tablet 1 tab PO DAILY calcium carb,lactat-vitamin D3 200 mg calcium -250 unit tablet 1 tab PO QAM meclizine 25 mg tablet 25 mg PO TID multivitamin Tablet 1 tab PO DAILY tolterodine 4 mg capsule,extended release 24hr 4 mg PO DAILY fluoxetine [Prozac] 20 mg capsule 20 mg PO DAILY levothyroxine 100 mcg capsule 100 mcg PO DAILY red yeast rice 600 mg capsule 600 mg PO BID Rx Instructions: give with meal/snack potassium chloride 10 mEq capsule, extended release 10 meq PO DAILY Prolia 60 mg/mL syringe 60 mg SUBCUT Q6M cyanocobalamin (vitamin B-12) 2,500 mcg tablet 2,500 mcg PO DAILY vitamin E mixed 1,000 unit capsule 4,000 unit PO DAILY albuterol sulfate [Ventolin HFA] 90 mcg/actuation HFA aerosol inhaler 1 inh inhalation QID PRN (Reason: shortness of breath or wheezing) Qty: 8.5 3RF selenium 50 mcg tablet 50 mcg PO DAILY (DME) Nebulizer and accessory kit See Rx Instructions .Route .MEDSUPPLY Qty: 1 0RF Patient Comments: Patient states that they do not have the machine. Rx Instructions: As directed fluconazole 100 mg tablet 100 mg PO DAILY 5 Days Qty: 5 0RF (DME) custom inserts See Rx Instructions .Route .MEDSUPPLY Qty: 1 0RF Rx Instructions: As directed lidocaine-prilocaine 2.5-2.5 % cream 1 applic topical ONCE levalbuterol HCl 0.63 mg/3 mL solution for nebulization 0.63 mg inhalation TID PRN (Reason: shortness of breath or wheezing) Qty: 75 2RF Patient Comments: Unable to take since they do not have a machine for it at home. Rx Instructions: DNExceed 3 doses/24h enoxaparin [Lovenox] 100 mg/mL syringe 100 mg SUBCUT DAILY Qty: 10 0RF Patient Comments: Patient states that they are not taking that anymore. Rx Instructions: 100 mg today prednisone 10 mg tablet 10 mg PO DIRECTED Qty: 30 0RF Rx Instructions: take one tablet x 1 week then decrease to 1/2 tablet daily acetaminophen [Tylenol] 325 mg capsule 325 mg PO Q6H Qty: 14 0RF ondansetron 4 mg tablet,disintegrating 4 mg PO Q6H PRN (Reason: nausea and vomiting) Qty: 20 0RF diphenoxylate-atropine [Lomotil] 2.5-0.025 mg tablet 1 tab PO BID PRN (Reason: diarrhea) Qty: 10 0RF Eliquis 5 mg tablet 5 mg PO BID Qty: 60 0RF lorazepam 1 mg tablet 0.5 - 1 mg PO Q6H PRN (Reason: Severe Nausea) Qty: 30 3RF lorazepam 1 mg tablet 0.5 - 1 mg PO Q6H PRN (Reason: Severe Nausea) Qty: 30 3RF Discharge Orders: Discharge ED (Routine); Ordered 10/31/23 Ordered By: Imani Manzo Referrals: Sánchez Macario [Primary Care Provider] - Patient Instructions: Ankle Sprain (DC), RICE Therapy Coding Level of Care Code ED Sample Cutter for Malu Cooper
--- NOTE | 2023-10-31 12:01 | XRR_ITS ---
PROCEDURE INFORMATION: Exam: XR Right Foot Exam date and time: 10/31/2023 12:04 PM Age: 83 years old Clinical indication: Injury or trauma; Blunt trauma; Injury details: Fall/trauma to right ankle and foot. Swelling and pain. TECHNIQUE: Imaging protocol: Radiologic exam of the right foot. Views: 3 or more views. COMPARISON: CR XR foot RT min 3V* [id number] 02/15/2021 3:09 PM FINDINGS: Bones/joints: Normal. No acute osseous or joint abnormality. Soft tissues: Normal. XR/XR foot RT min 3V* [id number] IMPRESSION: No acute findings.
--- NOTE | 2023-10-31 12:01 | XRR_ITS ---
PROCEDURE INFORMATION: Exam: XR Right Ankle Exam date and time: 10/31/2023 12:04 PM Age: 83 years old Clinical indication: Injury or trauma; Blunt trauma; Injury details: Fall/trauma to right ankle and foot. Swelling and pain. TECHNIQUE: Imaging protocol: Radiologic exam of the right ankle. Views: 3 or more views. COMPARISON: CR XR ankle RT min 3V* [id number] 02/15/2021 2:26 PM FINDINGS: Bones/joints: Calcaneal spurring. Triangular bone density between the talus and upper navicular probably related to old navicular trauma. Soft tissues: Normal. XR/XR ankle RT min 3V* [id number] IMPRESSION: No acute abnormality.
[2023-10-31 12:11] VITALS: BP 106/57; PULSE 85; O2SAT 97
[2023-10-31 13:14] VITALS: BP 121/55; PULSE 84; O2SAT 96
== END 2023-10-31 13:16 | disposition home or self-care (01) ==
PROVIDERS: Emergency Provider Physician Assistant; PCP Family Medicine
DX: S93.401A Sprain of unspecified ligament of right ankle, initial encounter (principal); Z79.01 Long term (current) use of anticoagulants; Z85.3 Personal history of malignant neoplasm of breast; I10 Essential (primary) hypertension; W10.8XXA Fall (on) (from) other stairs and steps, initial encounter
CPT/HCPCS: 73610; 73630; 99283

== ENCOUNTER 2023-11-11 15:37 | Inpatient (IN) | payer MEDICARE, MEDICAID, SELFPAY ==
[2023-11-11] VITALS (45 sets, daily range): BP systolic 76–112; BP diastolic 54–79; PULSE 92–110; RESP 19–49; TEMP 37–38.3; O2SAT 90–98
--- OUTSIDE RECORDS SUMMARY | 2023-11-11 15:44 | XMS_ITS ---
Author Name Unknown Organization [facility] ALLERGIES AND ADVERSE REACTIONS No information ASSESSMENT No information CHIEF COMPLAINT No information Medications Date Medication Dosage Startdate Active Dispense Refills Ndccode Dr cali Pharmacy[facility] Isprescription Srcstatus 2023 12:00 :00 AM fluoxetine 20 mg capsule 90.0000 00 08/19/2023 12:00:00 AM 1 90.549898 3 [id number] [facility] 2023 12:00 :00 AM ondansetron hcl 4 mg tablet 30.0000 00 04/26/2023 12:00:00 AM 1 30.944385 2 [id number] [facility] 2023 12:00 :00 AM diphenoxyla te-atropine 2.5 mg-0.025 mg tablet 10.0000 00 09/01/2023 12:00:00 AM 1 10.886887 0 [id number] [facility] 2023 12:00 :00 AM lagevrio 200 mg capsule (eua) 40.0000 00 04/18/2023 12:00:00 AM 1 40.258005 0 [id number] 432 [id number] [facility] 2023 12:00 :00 AM warfarin 5 mg tablet 265.000 000 08/15/2023 12:00:00 AM 1 265.39554 0 [id number] 101 [id number] [facility] 2023 12:00 :00 AM levothyroxi ne 112 mcg tablet 90.0000 00 07/13/2023 12:00:00 AM 1 90.381971 0 [id number] 110 [id number] [facility] 2023 12:00 :00 AM levofloxaci n 500 mg tablet 7.43326 0 06/26/2023 12:00:00 AM 1 7.172515 0 [id number] 301 [id number] [facility] 2023 12:00 :00 AM symbicort 80 mcg-4.5 mcg/actuati on hfa aerosol inhaler 02/14/2023 12:00:00 AM 1 0 [id number] 783 [id number] [facility] 2023 12:00 :00 AM lidocaine-p rilocaine 2.5 %-2.5 % topical cream 07/21/2023 12:00:00 AM 1 30.800845 1 [id number] 705 [id number] [facility] 2023 12:00 :00 AM furosemide 40 mg tablet .08/17/2023 12:00:00 AM 1 90.931637 3 [id number] 925 [id number] [facility] 2023 12:00 :00 AM fluticasone 250 mcg-salmete rol 50 mcg/dose blistr powdr for inhalation 6003/12/2023 12:00:00 AM 1 60.209620 6 [id number] 130 [id number] [facility] 2023 12:00 :00 AM sulfamethox azole 800 mg-trimetho prim 160 mg tablet 04/10/2023 12:00:00 AM 1 10.046240 0 [id number] 601 [id number] [facility] 2023 12:00 :00 AM prochlorper azine maleate 10 mg tablet 30.04/26/2023 12:00:00 AM 1 30.609618 2 [id number] 801 [id number] [facility] 2023 12:00 :00 AM levalbutero l 0.63 mg/3 ml solution for nebulizatio n 75.02/06/2023 12:00:00 AM 1 75.044914 1 [id number] 645 [id number] [facility] 2023 12:00 :00 AM prednisone 10 mg tablet 30.08/08/2023 12:00:00 AM 1 30.889452 0 [id number] 729 [id number] [facility] 2023 12:00 :00 AM fluconazole 100 mg tablet 5.98965 0 04/10/2023 12:00:00 AM 1 5.094484 0 [id number] 693 [id number] [facility] 2023 12:00 :00 AM enoxaparin 100 mg/ml subcutaneou s syringe 9.39734 0 08/06/2023 12:00:00 AM 1 9.559691 0 [id number] 500 [id number] [facility] 2023 12:00 :00 AM potassium chloride er 10 meq tablet,exte nded release 90.0000 00 08/16/2023 12:00:00 AM 1 90.286105 3 [id number] 105 [id number] [facility] 024 12:00 :00 AM meclizine 25 mg tablet 90.0000 00 09/17/2023 12:00:00 AM 1 90.462381 2 [id number] 101 [id number] [facility] 2023 12:00 :00 AM oxycodone 5 mg tablet 120.000 000 02/06/2023 12:00:00 AM 1 120.39362 0 0 [id number] 394 [id number] [facility] 2023 12:00 :00 AM tolterodine er 4 mg capsule,ext ended release 24 hr 90.0000 00 08/20/2023 12:00:00 AM 1 90.349473 1 [id number] 405 [id number] [facility] 2023 12:00 :00 AM ondansetron 4 mg disintegrat ing tablet 20.0000 00 09/01/2023 12:00:00 AM 1 20.453349 0 [id number] 730 [id number] [facility] OBJECTIVE DATA No information PHYSICAL EXAMINATION No information TREATMENT PLAN No information PROBLEMS No information RESULTS No information REVIEW OF SYSTEMS No information SUBJECTIVE DATA No information VITAL SIGNS No information
--- OUTSIDE RECORDS SUMMARY | 2023-11-11 15:44 | XMS_ITS ---
Author Name Unknown Organization Unknown ALLERGIES AND ADVERSE REACTIONS No information ASSESSMENT No information CHIEF COMPLAINT No information MEDICATIONS No information OBJECTIVE DATA No information PHYSICAL EXAMINATION No information TREATMENT PLAN Planned [facility] Start Date Provider Encounter for Check-up [phone] [facility] PROBLEMS No information RESULTS No information REVIEW OF SYSTEMS No information SUBJECTIVE DATA No information VITAL SIGNS No information
--- NOTE | 2023-11-11 16:24 | P.HP_ITS ---
Providers/Chief Complaint 2 Admitting Physician: Meg Francis MD Primary Care Provider: Sánchez Macario History of Present Illness Janet Calvillo is a 83 year old female who presented to [facility] with chief complaint of difficulty breathing. She has had progressively worsening symptoms over the last few days. These have included increasing shortness of breath, cough that was originally productive of some sputum but no longer productive now, sore throat, runny nose, headache and reported fevers. Additionally she has had some nausea and vomiting, loose stools and dysuria. Her daughter has had respiratory illness. Today her breathing became acutely worse leading to the emergency room visit. Of note Mrs. Calvillo has known severe aortic valve stenosis. She has been under evaluation for possible TAVR by Dr. Lance in [place] and is simply awaiting date for surgical intervention. She had cardiac catheterization in July of this year that did not reveal any obstructive coronary artery disease. She follows with Dr. Boo from a cardiac standpoint. She follows with Dr. Oro from oncology standpoint for breast cancer. No chemotherapy received since July of this year. EMS was called today because of acute worsening of difficulty breathing. She received oxygen therapy and some IV fluids and route to the emergency room. On arrival there she was tachycardic with heart rate in the 120s. On 4 L of oxygen by nasal cannula saturations were in the low 90s. She was afebrile. Workup revealed elevated BNP and significant elevation in baseline troponin. Chest x- ray showed no radiographic evidence of acute cardiopulmonary process. A CTA chest abdomen and pelvis was done on October 29 as part of her TAVR workup and at the time revealed no evidence of PE. Vasculature was noted to be without stenosis, aneurysm or dissection beyond mildly dilated ascending aorta up to 4.1 cm and known aortic valve changes. Left breast mass again noted but decreased in size compared to prior and right lower lobe solitary pulmonary nodule was not significantly changed. Mrs. Calvillo received Lasix and request was made for transfer here for further care. At the present time patient's breathing is better but still not back to recent baseline. Wet sounding cough that is nonproductive. Vital signs on arrival show blood pressure 95/54, pulse 109, respirations 38, oxygen saturation 91% on 4 L by nasal cannula. She is not normally on oxygen therapy. I did ask for 50 mg of hydrocortisone to be given prior to transfer as she has been on steroids recently and noted to have adrenal insufficiency last hospital stay when discharged in August 2023. I will note that she had an abnormal urinalysis at outside facility and was given a dose of Rocephin. COVID antigen was negative at outside facility. Influenza A&B antigen testing were also negative. Two hour troponin delta not elevated. L Review of Systems 2 General: Reports: Other (ROS as per HPI or as otherwise noted here) Const: Reports: fever(s) and fatigue; Denies: change in weight ENMT: Reports: throat pain and nasal congestion Card: Reports: palpitations, dyspnea on exertion and orthopnea; Denies: chest pain or edema Resp: Reports: dyspnea, productive cough (Not in a day or 2), non-productive cough and chest congestion; Denies: pain on inspiration or hemoptysis GI: Reports: nausea, vomiting and diarrhea; Denies: hematemesis or hematochezia : Reports: difficulty voiding, dysuria and urinary frequency; Denies: hematuria Skin/Breast: Reports: sores (right arm, healing) Neuro: Reports: headache(s) and weakness in extremities (general) Medications/Allergies Home Medications Medication Instructions Recorded Confirmed Last Taken Type calcium carb and lactate 200 1 tab PO QAM 12/28/19 11/11/23 09/02/23 History mg-vitamin D3 6.25 mcg (250 unit) tablet diphenhydramine HCl 25 mg capsule 25 mg PO TID PRN Itching 12/28/19 11/11/23 12/24/22 History (Benadryl) fluoxetine 20 mg capsule (Prozac) 20 mg PO DAILY 12/28/19 11/11/23 09/02/23 History levothyroxine 100 mcg capsule 100 mcg PO DAILY 12/28/19 11/11/23 09/02/23 History meclizine 25 mg tablet 25 mg PO TID PRN Dizziness 12/28/19 11/11/23 09/04/23 History multivitamin 1 tab PO DAILY 12/28/19 11/11/23 09/02/23 History potassium chloride 10 mEq 10 meq PO DAILY 12/28/19 11/11/23 09/02/23 History capsule,extended release red yeast rice 600 mg capsule 600 mg PO BID 12/28/19 11/11/23 09/02/23 History tolterodine 4 mg capsule,extended 4 mg PO DAILY 12/28/19 11/11/23 09/02/23 History release 24 hr vitamin B complex (B 1 tab PO DAILY 12/28/19 11/11/23 09/02/23 History Complex-Vitamin B12 tablet) denosumab 60 mg/mL subcutaneous 60 mg SUBCUT Q6M 06/26/20 11/11/23 08/06/23 06:00 History syringe (Prolia) cyanocobalamin (vitamin B-12) 2,500 mcg PO DAILY 07/19/21 11/11/23 09/02/23 History 2,500 mcg tablet vitamin E mixed 1,000 unit capsule 4,000 unit PO DAILY 07/19/21 11/11/23 09/02/23 History albuterol sulfate 90 mcg/actuation 1 inh inhalation QID PRN shortness 12/05/21 11/11/23 08/06/23 06:00 Rx aerosol inhaler (Ventolin HFA) of breath or wheezing #8.5 grams lorazepam 1 mg tablet 0.5 - 1 mg (0.5 - 1 x 1 mg) PO Q6H 12/31/22 11/11/23 08/06/23 06:00 Rx PRN Severe Nausea #30 tabs acetaminophen 325 mg capsule 325 mg PO Q6H #14 caps 01/01/23 11/11/23 09/03/23 Rx (Tylenol) Nebulizer and accessory kit #1 ea 02/05/23 10/21/23 Unknown Rx selenium 50 mcg tablet 50 mcg PO DAILY 02/05/23 11/11/23 09/02/23 History fluconazole 100 mg tablet 100 mg PO DAILY 5 days #5 tabs 04/09/23 11/11/23 09/02/23 Rx lidocaine-prilocaine 2.5 %-2.5 % 1 applic topical ONCE 07/23/23 11/11/23 09/04/23 History topical cream custom inserts #1 ea 08/06/23 10/21/23 Unknown Rx diphenoxylate-atropine 2.5 1 tab PO BID PRN diarrhea #10 tabs 08/30/23 11/11/23 09/02/23 Rx mg-0.025 mg tablet (Lomotil) ondansetron 4 mg disintegrating 4 mg PO Q6H PRN nausea and 08/30/23 11/11/23 09/04/23 Rx tablet vomiting #20 tabs apixaban 5 mg tablet (Eliquis) 5 mg PO BID #60 tabs 09/11/23 11/11/23 Unknown Rx prednisone 10 mg tablet 10 mg PO DIRECTED #30 tabs 10/27/23 11/11/23 Unknown Rx Allergies Allergy/AdvReac Type Severity Reaction Status Date / Time tetanus toxoid, adsorbed Allergy Severe unknown Verified 10/31/23 11:54 ciprofloxacin [From Cipro] Allergy Unknown ADR-Vomitin Verified 10/31/23 11:54 g erythromycin base Allergy Unknown ADR-Vomitin Verified 10/31/23 11:54 g gabapentin [From Neurontin] Allergy Unknown unknown Verified 10/31/23 11:54 hydrocodone [From Vicodin] Allergy Unknown unknown Verified 10/31/23 11:54 Influenza Virus Vaccines Allergy Unknown unknown Verified 10/31/23 11:54 tramadol [From Ultram] Allergy Unknown unknown Verified 10/31/23 11:54 aspirin Allergy stomach Verified 10/31/23 11:54 pain, unbearable egg Allergy unknown Verified 10/31/23 11:54 NSAIDS (Non-Steroidal Allergy heartburn, Verified 10/31/23 11:54 Anti-Inflamma stomach pain Tetanus Vaccines and Toxoid Allergy unknown Verified 10/31/23 11:54 adhesive AdvReac Unknown unknown Verified 10/31/23 11:54 PFSH Acute 2 PFSH: Medical History (Updated 11/11/23 @ 17:22 by Meg Francis MD) Hypothyroidism COVID-19 2021 History of echocardiogram 06/2023 EF 60%, Grade I/IV diastolic dysfunction, severe AV stenosis 0.99, mean gradient 40.2 mmHg, peak velocity 4.19 ms 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 Primary osteoarthritis of left knee Iron deficiency anemia Dyslipidemia Port-A-Cath in place placed 12/2022 Adrenal insufficiency hospital stay 08/2023 Reversible airway obstruction Lesion of right [place] ureter History of recurrent UTI (urinary tract infection) Pulmonary nodules Interstitial lung disease Asthma Breast cancer Hydronephrosis of right kidney Osteoporosis Arthritis Aortic stenosis Hypertension DVT (deep venous thrombosis) Pulmonary embolism Obesity Surgical History (Updated 11/11/23 @ 16:41 by Meg Francis MD) History of cardiac catheterization 07/2023 no obstructive disease Hx of tubal ligation Hx of cystoscopy Hx of colonoscopy Age 65 Hx of cholecystectomy H/O: hysterectomy Hx of cataract surgery S/P tonsillectomy Family History Father , AT 92 Congestive heart failure (CHF) Mother , AT 100 of unknown cause Other CAD (coronary artery disease) Cancer Diabetes Hyperlipidemia Hypertension Stroke Denies family history of Psychiatric illness Chronic kidney disease (CKD) Suicide Family history of premature coronary artery disease Lung disease Social History Smoking and tobacco/nicotine status: never used tobacco/nicotine Alcohol intake: never Substance/Drug Use: never Marital status: / Current occupational status: retired and disabled Physical Exam 2 Narrative: Patient is awake and alert, acutely and chronically ill-appearing. Able to provide history but has to pause while talking. Wearing oxygen at 4 L by nasal cannula currently with saturations in the low 90s. Heart rate in the low 100s, systolic pressure mid 90s, respirations upper 20s/low 30s. Normocephalic, moist mucous membranes, neck supple, bilateral crackles, no wheezing noted, no rhonchi. Cardiovascular exam reveals a tachycardic but regular rhythm. Abdomen is soft, no flank tenderness. Jones catheter is noted in place with yellow urine though cloudy. Extremities trace pitting edema bilaterally, both legs are puffy. Speech is clear, face symmetric, moving all extremities. Has a healing scab to right forearm with dried blood noted Data 11/11/23 17:02 11/11/23 17:02 Other data: Labs from outside facility today: White count 6000, hemoglobin 11, hematocrit 35, platelet count 178, absolute neutrophil count low at 0.97 absolute monocyte count up at 1.02 Chest x-ray no radiographic evidence of an acute cardiopulmonary process Sodium 135, potassium 3.8, chloride 101, CO2 22, calcium 9.7, BUN 18, creatinine 1.04, glucose 101, total protein 6.4, albumin 3.5, total bilirubin 0.4, alkaline phosphatase 82, AST 28, ALT 16, GFR 53, anion gap 12, magnesium 2.0, baseline troponin fifth generation 414 with 2-hour troponin at 464 a delta of less than 10 proBNP 3757 Urinalysis slightly cloudy yellow urine with a specific gravity 1.020, pH 7.5, 1+ leukocyte esterase, negative nitrates, 2+ protein, negative glucose, trace ketones, 1+ blood with 51-100 white blood cells and 3-5 red blood cells per high-powered field with 2+ bacteria and 0-5 epithelial cells COVID antigen negative Influenza AMB antigen negative Twelve-lead EKG with sinus tachycardia A&P Assessment and plan (1) Shortness of breath: Multifactorial, developing over a several day period of time, likely result of a viral upper respiratory illness given symptoms described and known family member with similar symptoms. Acutely worsened today probably in relation to known severe aortic stenosis. Has a history of PE and DVT but has been compliant with Eliquis until dose this morning. Both viral and bacterial infection could also be contributing as COVID acute adrenal insufficiency from steroid use. With unremarkable cardiac catheterization showing nonobstructive disease earlier this year acute ischemia from obstructive process not likely. Has associated hypoxemia, currently requiring oxygen therapy. (2) Viral respiratory illness: Based on headache, runny nose, sore throat, cough and fevers plus sick contacts. COVID antigen and influenza antigen testing negative at other facility. (3) Severe aortic valve stenosis: Known diagnosis. Currently under evaluation for TAVR placement and has met requirements per her understanding but awaits a date for surgical intervention. Was seen by Dr. Lance in [place]. (4) Urinary tract infection: Present on admission, in a patient with a history of recurrent urinary tract infections. At least acute cystitis, acute pyelonephritis within differential secondary to reported fevers and vomiting. No microbiological specimens indicating resistant organisms in the past. Has a history of right-sided nephrosis and hydroureter presumably secondary to a clot though not definitive. (5) Adrenal insufficiency: Noted during last hospital stay in August of this year. Has continued to be on steroid since then, with most recent change on October 27 being decreasing to 10 mg daily for 1 week and then cutting down to 5 mg daily of prednisone. Received 50 mg of hydrocortisone at outside facility at my direction due to borderline blood pressures. (6) Chronic anticoagulation: Chronically on Eliquis due to history of DVT and PE. Had recent CTA of the chest done at another facility on October 29 that did not demonstrate any evidence of pulmonary embolism or other vascular thrombosis. Vascular abnormalities were limited to ascending aortic dilatation at 4.1 cm. She did miss a dose of Eliquis this morning. (7) Hypothyroidism: Chronically on levothyroxine (8) Hypertension: Historically has had primary hypertension though no longer requiring management. Has lower blood pressures and history of adrenal insufficiency currently. 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 Oro. Most recent note from October 21, 2023 indicates she will not be receiving any further immunotherapy, has completed course of neoadjuvant therapy and that she has a residual nodule in the left breast for which she will need to undergo lumpectomy and sentinel axillary lymph node biopsy when feasible after addressing cardiovascular needs prior to other surgical intervention. Qualifiers: Breast location: nipple Estrogen receptor status: negative Laterality: left Patient sex: female Qualified Code(s): C50.012 - Malignant neoplasm of nipple and areola, left female breast; Z17.1 - Estrogen receptor negative status [ER-] (11) Interstitial lung disease: Secondary to effects from COVID-19 in 2021. Also has known pulmonary nodule that has been stable over time. (12) Port-A-Cath in place: Right upper chest Plan Inpatient admission Status post 1 dose of IV Lasix at outside facility Has a Jones catheter in place Monitor output from above and clinical response before administering additional diuretics or fluids Oxygen therapy, weaning as able May need bipap Breathing treatments as needed Telemetry monitoring ABG, repeat troponin and recheck electrolytes along with lactic acid Check COVID PCR Cardiology consultation secondary to the severity of aortic stenosis and potential need to consider transfer; was hypotensive earlier though I believe that was in part due to adrenal insufficiency as has responded to hydrocortisone. Cannot rule out decompensation secondary to severity of . Will need to follow-up pending blood and urine cultures from outside facility Continue Rocephin which was started prior to admission here Continue Eliquis at usual dosing Continue home levothyroxine dosing May use Port-A-Cath VTE prophylaxis: eliquis GI Prophylaxis: PPI Antibiotics: norocephin due to uti present prior to admission Pending studies: labs as ordered Telemetry: ordered due to cardia issues Jones: for close monitoring of urine output Line(s): peripheral IVs and port-a-cath Disposition plan: depends on clinical course Code Status: Full Code Supportive care otherwise Findings, concerns and plans were discussed with patient and they were given an opportunity to ask questions Attestations 2 Medical Necessity Statement*: Anticipated stay greater than two midnights in this patient with severe aortic stenosis presenting with respiratory complaints that appear to be multifactorial in nature possibly from a viral respiratory illness but exacerbated in the setting of severe aortic stenosis. Also with UTI present on admission. Receiving IV fluids, monitoring after administration of IV diuretics and close monitoring in the ICU secondary to very high risk of rapid clinical decline. 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
--- NOTE | 2023-11-11 17:15 | PM.CONSULT ---
Providers/Reason For Consult Consulting Physician/Specialty*: Shabbir Momin MD/ Cardiology Reason for Consult*: Aortic stenosis/ Respiratory distress Requesting Physician: Dr Francis Attending Physician: Meg Francis MD Primary Care Provider: Sánchez Macario History of Present Illness History of Present Illness Janet Calvillo is a 83 year old female with past medical history of aortic stenosis currently undergoing workup for aortic valve replacement, DVT, PE, breast cancer has been transferred from outside hospital secondary to worsening shortness of breath for the last 4 days. According to patient she has low appetite, nausea and diarrhea as well. She was found to have UTI as well. Initial troponin was 414 that has trended down since. Her coronary angiogram earlier this year showed no significant CAD. EKG shows sinus tachycardia with no significant ST T wave changes Review of Systems General: Reports: Other (ROS as per HPI or as otherwise noted here) Const: Reports: fever(s) and fatigue; Denies: change in weight ENMT: Reports: throat pain and nasal congestion Card: Reports: palpitations, dyspnea on exertion and orthopnea; Denies: chest pain or edema Resp: Reports: dyspnea and non-productive cough GI: Reports: nausea, vomiting and diarrhea; Denies: hematemesis or hematochezia : Reports: difficulty voiding, dysuria and urinary frequency; Denies: hematuria Skin/Breast: Reports: sores (right arm, healing) Neuro: Reports: headache(s) and weakness in extremities (general) Medications/Allergies Home Medications Medication Instructions Recorded Confirmed Last Taken Type calcium carb and lactate 200 1 tab PO QAM 12/28/19 11/11/23 09/02/23 History mg-vitamin D3 6.25 mcg (250 unit) tablet diphenhydramine HCl 25 mg capsule 25 mg PO TID PRN Itching 12/28/19 11/11/23 12/24/22 History (Benadryl) fluoxetine 20 mg capsule (Prozac) 20 mg PO DAILY 12/28/19 11/11/23 09/02/23 History levothyroxine 100 mcg capsule 100 mcg PO DAILY 12/28/19 11/11/23 09/02/23 History meclizine 25 mg tablet 25 mg PO TID PRN Dizziness 12/28/19 11/11/23 09/04/23 History multivitamin 1 tab PO DAILY 09/12/0811/11/23 09/02/23 History potassium chloride 10 mEq 10 meq PO DAILY 12/28/19 11/11/23 09/02/23 History capsule,extended release red yeast rice 600 mg capsule 600 mg PO BID 12/28/19 11/11/23 09/02/23 History tolterodine 4 mg capsule,extended 4 mg PO DAILY 12/28/19 11/11/23 09/02/23 History release 24 hr vitamin B complex (B 1 tab PO DAILY 12/28/19 11/11/23 09/02/23 History Complex-Vitamin B12 tablet) denosumab 60 mg/mL subcutaneous 60 mg SUBCUT Q6M 06/26/20 11/11/23 08/06/23 06:00 History syringe (Prolia) cyanocobalamin (vitamin B-12) 2,500 mcg PO DAILY 07/19/21 11/11/23 09/02/23 History 2,500 mcg tablet vitamin E mixed 1,000 unit capsule 4,000 unit PO DAILY 07/19/21 11/11/23 09/02/23 History albuterol sulfate 90 mcg/actuation 1 inh inhalation QID PRN shortness 12/05/21 11/11/23 08/06/23 06:00 Rx aerosol inhaler (Ventolin HFA) of breath or wheezing #8.5 grams lorazepam 1 mg tablet 0.5 - 1 mg (0.5 - 1 x 1 mg) PO Q6H 12/31/22 11/11/23 08/06/23 06:00 Rx PRN Severe Nausea #30 tabs acetaminophen 325 mg capsule 325 mg PO Q6H #14 caps 01/01/23 11/11/23 09/03/23 Rx (Tylenol) Nebulizer and accessory kit #1 ea 02/05/23 10/21/23 Unknown Rx selenium 50 mcg tablet 50 mcg PO DAILY 02/05/23 11/11/23 09/02/23 History fluconazole 100 mg tablet 100 mg PO DAILY 5 days #5 tabs 04/09/23 11/11/23 09/02/23 Rx lidocaine-prilocaine 2.5 %-2.5 % 1 applic topical ONCE 07/23/23 11/11/23 09/04/23 History topical cream custom inserts #1 ea 08/06/23 10/21/23 Unknown Rx diphenoxylate-atropine 2.5 1 tab PO BID PRN diarrhea #10 tabs 08/30/23 11/11/23 09/02/23 Rx mg-0.025 mg tablet (Lomotil) ondansetron 4 mg disintegrating 4 mg PO Q6H PRN nausea and 08/30/23 11/11/23 09/04/23 Rx tablet vomiting #20 tabs apixaban 5 mg tablet (Eliquis) 5 mg PO BID #60 tabs 09/11/23 11/11/23 Unknown Rx prednisone 10 mg tablet 10 mg PO DIRECTED #30 tabs 10/27/23 11/11/23 Unknown Rx Allergies Allergy/AdvReac Type Severity Reaction Status Date / Time tetanus toxoid, adsorbed Allergy Severe unknown Verified 10/31/23 11:54 ciprofloxacin [From Cipro] Allergy Unknown ADR-Vomitin Verified 10/31/23 11:54 g erythromycin base Allergy Unknown ADR-Vomitin Verified 10/31/23 11:54 g gabapentin [From Neurontin] Allergy Unknown unknown Verified 10/31/23 11:54 hydrocodone [From Vicodin] Allergy Unknown unknown Verified 10/31/23 11:54 Influenza Virus Vaccines Allergy Unknown unknown Verified 10/31/23 11:54 tramadol [From Ultram] Allergy Unknown unknown Verified 10/31/23 11:54 aspirin Allergy stomach Verified 10/31/23 11:54 pain, unbearable egg Allergy unknown Verified 10/31/23 11:54 NSAIDS (Non-Steroidal Allergy heartburn, Verified 10/31/23 11:54 Anti-Inflamma stomach pain Tetanus Vaccines and Toxoid Allergy unknown Verified 10/31/23 11:54 adhesive AdvReac Unknown unknown Verified 10/31/23 11:54 PFSH Acute PFSH: Medical History Hypothyroidism COVID-19 2021 History of echocardiogram 06/2023 EF 60%, Grade I/IV diastolic dysfunction, severe AV stenosis 0.99, mean gradient 40.2 mmHg, peak velocity 4.19 ms 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 Primary osteoarthritis of left knee Iron deficiency anemia Dyslipidemia Port-A-Cath in place placed 12/2022 Adrenal insufficiency hospital stay 08/2023 Reversible airway obstruction Lesion of right [place] ureter History of recurrent UTI (urinary tract infection) Pulmonary nodules Interstitial lung disease Asthma Breast cancer Hydronephrosis of right kidney Osteoporosis Arthritis Aortic stenosis Hypertension DVT (deep venous thrombosis) Pulmonary embolism Obesity Surgical History History of cardiac catheterization 07/2023 no obstructive disease Hx of tubal ligation Hx of cystoscopy Hx of colonoscopy Age 65 Hx of cholecystectomy H/O: hysterectomy Hx of cataract surgery S/P tonsillectomy Family History Father , AT 92 Congestive heart failure (CHF) Mother , AT 100 of unknown cause Other CAD (coronary artery disease) Cancer Diabetes Hyperlipidemia Hypertension Stroke Denies family history of Psychiatric illness Chronic kidney disease (CKD) Suicide Family history of premature coronary artery disease Lung disease Social History Smoking and tobacco/nicotine status: never used tobacco/nicotine Alcohol intake: never Substance/Drug Use: never Marital status: / Current occupational status: retired and disabled Vitals/I&O/Wt Last Vital Signs Pulse 109 H 11/11/23 16:30 Resp 38 H 11/11/23 16:30 BP 95/54 11/11/23 16:30 Pulse Ox 91 11/11/23 16:30 O2 Del Method Nasal Cannula 11/11/23 15:52 Weight last 48 hrs Weight 225 lb 9 oz Physical Exam Narrative: GENERAL: Patient is alert, awake and oriented x3. [] NECK: No jugular vein distension. [] HEENT: No cyanosis. No icterus. No pallor. [] HEART: Regular S1 and S2. No murmur, rub or gallop. [] LUNGS: Diminished air entry bilaterally CENTRAL NERVOUS SYSTEM: Grossly nonfocal. [] EXTREMITIES: Lower extremities with 1+ edema bilaterally. Pulses palpable in the lower extremities, both dorsalis pedis and posterior tibial. [] Data 11/12/23 03:45 11/12/23 03:45 A&P Assessment and plan (1) Severe aortic valve stenosis: (2) Hypertension: (3) Dyslipidemia: (4) Pulmonary embolism: Qualifiers: Pulmonary embolism type: unspecified Chronicity: chronic Acute cor pulmonale presence: without acute cor pulmonale Qualified Code(s): I27.82 - Chronic pulmonary embolism (5) DVT (deep venous thrombosis): Qualifiers: DVT location: lower extremity Affected thrombotic vein of extremity: unspecified lower extremity proximal vein Chronicity: chronic Laterality: bilateral Qualified Code(s): I82.5Y3 - Chronic embolism and thrombosis of unspecified deep veins of proximal lower extremity, bilateral (6) Elevated troponin: (7) Shortness of breath: Plan Patient's presentation is multifactorial with respiratory distress, UTI, nausea and aortic stenosis, adrenal insufficiency and possible viral respiratory illness are contributing. At this time she does not appear significantly volume overloaded. Obtain chest x-ray. Hold off on diuretic therapy at this time. Viral panel has already been ordered. Monitor in ICU. Blood pressure monitoring If does not improve over the next 24 hours to 48 hours, may need to transfer to tertiary center Antibiotic therapy per primary team Thank you for involving us with care of this patient. We will continue to follow. Please call with questions. Consult Attestations Medical Necessity Statement: Care expected to cross 2 midnights. Coding Level of Care Code Acute Code for [facility] Fwd Diagnoses Severe aortic valve stenosis I35.0 Hypertension I10 Dyslipidemia E78.5 Chronic pulmonary embolism without acute cor pulmonale, unspecified pulmonary embolism type I27.82 Pulmonary embolism type: unspecified Chronicity: chronic Acute cor pulmonale presence: without acute cor pulmonale Chronic deep vein thrombosis (DVT) of proximal vein of both lower extremities I82.5Y3 DVT location: lower extremity Affected thrombotic vein of extremity: unspecified lower extremity proximal vein Chronicity: chronic Laterality: bilateral Elevated troponin R79.89 Shortness of breath R06.02
--- NOTE | 2023-11-11 17:19 | ECG_ITS ---
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 Measurements Intervals [place] Rate: 105 P: 42 ME: 151 QRS: -9 QRSD: 82 T: 16 QT: 356 QTc: 471 Interpretive Statements SINUS TACHYCARDIA LOW QRS VOLTAGE IN PRECORDIAL LEADS [QRS DEFLECTION < 1.0 mV IN CHEST LEADS] Compared to ECG 09/05/2023 09:37:46 Sinus rhythm no longer present T-wave abnormality no longer present Electronically Signed On 11-12-2023 10:32:44 CDT by Shabbir Momin M.D. [id number]
[2023-11-11 17:23] LABS: Basophils % 0.5 %; Eosinophils # 0.1 10^3/uL (0.0-0.8); Hematocrit 34.7 % (36-47); Lymphocytes # 0.4 10^3/uL (0.8-4.8); Lymphocytes % 5.9 %; Mean Corpuscular HGB Conc 31.4 g/dL (30-55); Mean Corpuscular Hemoglobin 32.8 pg (27-33); Mean Corpuscular Volume 104.5 fl (85-98); Monocytes # 0.7 10^3/uL (0.2-0.9); Monocytes % 11.8 %; Neutrophils # 5.07 10^3/uL (1.8-7.7); Neutrophils % 80.5 %; Nucleated Red Blood Cells % 0 %; Platelet Count 157 10^3/cmm (157-399); Red Blood Count 3.32 10^6/uL (3.85-5.65); Red Cell Distribution Width 14.6 % (12.1-15.1); White Blood Count 6.29 10^3/uL (3.29-11.43)
[2023-11-11 17:27] LABS: ABG PCO2 35.4 mmHg (35-45); ABG PH Result 7.46 (7.35-7.45); Arterial Blood Gas Hematocrit 34.9 % (37-47); Base Excess ABG 1.1 mmol/L (-2.0-2.0); Blood Gas Allen Test Pos; Blood Gas Operator Identificat CAK; Blood Gas Sample Site Radial, left; Blood Gas Sample Type Arterial; HCO3 ABG 24.8 mmol/L (22-26); Oxygen Device NC; PO2 ABG 64.4 mmHg (80.0-100.0); PO2 FiO2 Ratio Arterial Blood 201
--- NOTE | 2023-11-11 17:29 | XRR_ITS ---
PROCEDURE INFORMATION: Exam: XR Chest Exam date and time: 11/11/2023 5:43 PM Age: 83 years old Clinical indication: Other: Chf; Prior surgery; Surgery date: 6+ months; Surgery type: Port; Additional info: Congestive heart failure TECHNIQUE: Imaging protocol: Radiologic exam of the chest. Views: 1 view. COMPARISON: CR XR chest 1V portable [id number] 09/07/2023 12:21 PM FINDINGS: Tubes, catheters and devices: Right-sided chest port tip overlies the right atrium. Lungs: Hyperexpanded. No consolidation. Pleural spaces: Unremarkable. No pleural effusion. No pneumothorax. Heart/Mediastinum: Unremarkable. No cardiomegaly. Bones/joints: Unremarkable. XR/XR chest 1V portable [id number] IMPRESSION: Hypoexpanded lungs without pleural effusion or edema.
[2023-11-11] MEDS: acetaminophen 325 mg Tablet 650 MG PO (17:35)
[2023-11-11 17:41] LABS: INR 1.28 (0.8-1.2)
[2023-11-11 17:42] LABS: Partial Thromboplastin Time 43.1 SECONDS (23.9-36.7)
[2023-11-11 17:53] LABS: Lactic Sepsis W/Reflex 0.9 mmol/L (0.5-2.2)
[2023-11-11 17:58] LABS: Troponin(5th) Baseline 353 ng/L (0-10)
--- NOTE | 2023-11-11 18:00 | PC.NURSE ---
Critical Lab Called by Ana. Troponin 353. This was documented in the chart.
[2023-11-11] MEDS: tolterodine 2 mg Tablet PO (18:42)
[2023-11-11 19:09] LABS: Alanine Aminotransferase 16 U/L (0-33); Albumin Level 3.4 g/dL (3.5-5.2); Alkaline Phosphatase 71 U/L (35-105); Anion Gap 19.7 (5-19); Aspartate Amino Transferase 25 U/L (0-32); Blood Urea Nitrogen 17 mg/dL (8-23); Calcium 9.1 mg/dL (8.5-10.5); Carbon Dioxide 23 mmol/L (22-29); Chloride 98 mmol/L (98-107); Glucose 123 mg/dL (65-115); Osmolality Calculated 287 mOsm/kg (285-295); Phosphorus 2.8 mg/dL (2.5-4.5); Potassium 3.7 mmol/L (3.5-5.1); Sodium 137 mmol/L (136-145); Total Bilirubin 0.4 mg/dL (0.15-1.2); Total Protein 6.4 g/dL (6.6-8.7)
[2023-11-11 19:12] LABS: Adenovirus Not Detected (NOT DETECT); Chlamydia Pneumoniae Not Detected (NOT DETECT); Coronavirus 229E,HKU1,NL63,OC4 Not Detected (NOT DETECT); Human Metapneumovirus Not Detected (NOT DETECT); Human Rhinovirus/Enterovirus Not Detected (NOT DETECT); Influenza A Not Detected (NOT DETECT); Influenza A H1 Not Detected (NOT DETECT); Influenza A H1-2009 Not Detected (NOT DETECT); Influenza A H3 Not Detected (NOT DETECT); Influenza B Not Detected (NOT DETECT); Mycoplasma Pneumoniae Not Detected (NOT DETECT); Parainfluenza Virus Type 1 Not Detected (NOT DETECT); Parainfluenza Virus Type 2 Not Detected (NOT DETECT); Parainfluenza Virus Type 3 Detected (NOT DETECT); Parainfluenza Virus Type 4 Not Detected (NOT DETECT); Respiratory Syncytial Virus A Not Detected (NOT DETECT); Respiratory Syncytial Virus B Not Detected (NOT DETECT); SARS-COV-2 Not Detected (NOT DETECT)
[2023-11-11 19:13] LABS: Creatinine Clr Calc Pharmacy 51.4816
[2023-11-11 19:36] LABS: Parainfluenza Virus Type 1 Not Detected (NOT DETECT); Parainfluenza Virus Type 2 Not Detected (NOT DETECT); Parainfluenza Virus Type 3 Detected (NOT DETECT); Parainfluenza Virus Type 4 Not Detected (NOT DETECT); Results from GEN
[2023-11-11] MEDS: ipratropium-albuterol 3 mL Neb INHALATION (19:49)
[2023-11-11] MEDS: hydrocortisone 100 mg/2 mL SDV 50 MG IVP (20:46)
[2023-11-11] MEDS: apixaban 5 mg Tablet PO (20:46)
[2023-11-12] VITALS (48 sets, daily range): BP systolic 86–129; BP diastolic 53–93; PULSE 90–104; RESP 16–34; TEMP 36.4–37.2; O2SAT 91–98; BMI 36.3
[2023-11-12] MEDS: ipratropium-albuterol 3 mL Neb INHALATION ×2 (01:53→07:40)
[2023-11-12] MEDS: acetaminophen 325 mg Tablet 650 MG PO (03:49)
[2023-11-12 04:01] LABS: Basophils % 0.4 %; Hematocrit 35.9 % (36-47); Lymphocytes # 0.3 10^3/uL (0.8-4.8); Lymphocytes % 5.1 %; Mean Corpuscular HGB Conc 31.5 g/dL (30-55); Mean Corpuscular Hemoglobin 32.8 pg (27-33); Mean Corpuscular Volume 104.4 fl (85-98); Mean Platelet Volume 9.7 fL (7.4-10.4); Monocytes # 0.3 10^3/uL (0.2-0.9); Monocytes % 5.6 %; Neutrophils # 4.72 10^3/uL (1.8-7.7); Neutrophils % 88.5 %; Nucleated Red Blood Cells % 0 %; Platelet Count 154 10^3/cmm (157-399); Red Blood Count 3.44 10^6/uL (3.85-5.65); Red Cell Distribution Width 14.6 % (12.1-15.1); White Blood Count 5.33 10^3/uL (3.29-11.43)
[2023-11-12 04:21] LABS: Anion Gap 17.2 (5-19); Blood Urea Nitrogen 20 mg/dL (8-23); Calcium 9.1 mg/dL (8.5-10.5); Carbon Dioxide 24 mmol/L (22-29); Chloride 102 mmol/L (98-107); Creatinine Clr Calc Pharmacy 57.2018; Glucose 182 mg/dL (65-115); Magnesium 2.4 mg/dL (1.7-2.3); Osmolality Calculated 295 mOsm/kg (285-295); Phosphorus 3.7 mg/dL (2.5-4.5); Potassium 4.2 mmol/L (3.5-5.1); Sodium 139 mmol/L (136-145)
[2023-11-12 04:40] LABS: ABG PCO2 36.6 mmHg (35-45); ABG PH Result 7.43 (7.35-7.45); Arterial Blood Gas Hematocrit 44.7 % (37-47); Base Excess ABG 0.4 mmol/L (-2.0-2.0); Blood Gas Operator Identificat JDB; Blood Gas Sample Site Brachial, right; Blood Gas Sample Type Arterial; HCO3 ABG 24.4 mmol/L (22-26); Oxygen Device NC
[2023-11-12] MEDS: levothyroxine 100 mcg Tablet PO (05:21)
[2023-11-12] MEDS: hydrocortisone 100 mg/2 mL SDV 50 MG IVP ×3 (05:21→20:07)
[2023-11-12] MEDS: budesonide 0.5 mg/2 mL Neb 0.25 MG INHALATION (07:40)
--- NOTE | 2023-11-12 09:21 | P.PN_ITS ---
Subjective 2 Subjective: Patient is doing well. no chest pain. Vitals/I&O/Wt Last Vital Signs Temp 98.9 F 11/12/23 07:45 Pulse 90 11/12/23 07:50 Resp 18 11/12/23 07:45 BP 120/75 11/12/23 07:00 Pulse Ox 96 11/12/23 07:45 O2 Del Method Nasal Cannula 11/12/23 07:45 O2 Flow Rate 3 11/12/23 07:45 FiO2 40 11/12/23 01:53 11/11/23 11/12/23 11/12/23 22:59 06:59 14:59 Intake Total 480 / 480 Output Total 350 / 350 300 / 650 Balance -350 / -350 180 / -170 Weight last 48 hrs Weight 225 lb 9 oz Weight 225 lb 9 oz Weight 225 lb 9 oz Physical Exam 2 Narrative: GENERAL: Patient is alert, awake and oriented x3. [] NECK: No jugular vein distension. [] HEENT: No cyanosis. No icterus. No pallor. [] HEART: Regular S1 and S2. No murmur, rub or gallop. [] LUNGS: Diminished air entry bilaterally CENTRAL NERVOUS SYSTEM: Grossly nonfocal. [] EXTREMITIES: Lower extremities with 1+ edema bilaterally Urinary Catheter Management: Jones: Cath Placed During This Visit: no Reason for Continuing Indwelling Catheter: Accurate Measurement of Urinary Output in Critically Ill Patients Data 11/13/23 04:58 11/13/23 04:58 Micro: Microbiology 11/11/23 17:02 Blood Culture - Preliminary Blood SPECIMEN COLLECTED 11/11/23 16:50 Blood Culture - Preliminary Blood SPECIMEN COLLECTED A&P Assessment and plan (1) Severe aortic valve stenosis: (2) Hypertension: (3) Dyslipidemia: (4) Pulmonary embolism: Qualifiers: Pulmonary embolism type: unspecified Chronicity: chronic Acute cor pulmonale presence: without acute cor pulmonale Qualified Code(s): I27.82 - Chronic pulmonary embolism (5) DVT (deep venous thrombosis): Qualifiers: DVT location: lower extremity Affected thrombotic vein of extremity: u nspecified lower extremity proximal vein Chronicity: chronic Laterality: b ilateral Qualified Code(s): I82.5Y3 - Chronic embolism and thrombosis of unspecified deep veins of proximal lower extremity, bilateral (6) Elevated troponin: (7) Shortness of breath: Plan Patient is feeling better. Found parainfluenza viral infection. On stress dose hydrocortisone. Blood pressure has improved. Can monitor for now in ICU Thank you for involving us with care of this patient. We will continue to follow. Please call with questions. Attestations 2 Medical Necessity Statement*: Care expected to cross 2 midnights. 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
[2023-11-12] MEDS: tolterodine 2 mg Tablet PO ×2 (09:56→18:25)
[2023-11-12] MEDS: fluticasone nasal spray 16gm Btl 1 SPRAY NASAL (09:56)
[2023-11-12] MEDS: potassium chloride ER 10 mEq Tablet PO (09:56)
[2023-11-12] MEDS: loratadine 10 mg Tablet PO (09:56)
[2023-11-12] MEDS: apixaban 5 mg Tablet PO ×2 (09:56→20:07)
[2023-11-12] MEDS: fluconazole 100 mg Tablet PO (09:56)
[2023-11-12] MEDS: fluoxetine 20 mg Capsule PO (09:56)
[2023-11-12] MEDS: water for injection-sterile 10 ML 100 ML (09:57)
[2023-11-12] MEDS: pantoprazole 40 mg SDV IVP (09:57)
[2023-11-12] MEDS: cefTRIAXone 1,000 mg SDV 1000 MG IVP (09:57)
--- NOTE | 2023-11-12 10:32 | PC.SOCIAL ---
IMM Update Pg. 2 of IMM updated and reviewed with patient's daughter over the phone, who verbalized understanding.
[2023-11-12 12:50] LABS: Procalcitonin 0.88 ng/mL (0-0.5)
--- NOTE | 2023-11-12 13:28 | P.PN_ITS ---
Subjective 2 Subjective: H&P and labs appreciated. Today morning patient seen in ICU. Laying comfortably in bed. States she is feeling a lot better, breathing status. She is on 4 L of oxygen supplementation. Still complaining of tremors. Denies any nausea vomiting, headache. Complained of mild chest pain yesterday. Vitals/I&O/Wt Last Vital Signs Temp 98.9 F 11/12/23 07:45 Pulse 91 11/12/23 12:30 Resp 22 H 11/12/23 12:30 BP 124/60 11/12/23 12:30 Pulse Ox 94 11/12/23 12:30 O2 Del Method Nasal Cannula 11/12/23 12:30 O2 Flow Rate 4 11/12/23 12:30 FiO2 40 11/12/23 01:53 11/11/23 11/12/23 11/12/23 22:59 06:59 14:59 Intake Total 480 / 480 250 / 250 Output Total 350 / 350 300 / 650 Balance -350 / -350 180 / -170 250 / 250 Weight last 48 hrs Weight 102.313 kg Weight 102.313 kg Weight 102.313 kg Physical Exam 2 Narrative: General: No acute distress, AO x3, elderly, chronically sick appearing HEENT: PERRLA, pupils bilaterally equal and reactive Chest: Bilateral bronchial breath sounds all over lung field with occasional rhonchi and crackles mostly in the right lower zone CVS: S1-S2 regular, ejection systolic murmur at aortic region 2/6 with minimal radiation to carotids, no tachycardia, no gallops, no rubs Abdomen: Soft, nontender, no organomegaly, bowel sounds present Neuro: No focal deficits, no facial deformity, AO x3, power 5/5 in all limbs Urinary Catheter Management: Jones: Cath Placed During This Visit: no Reason for Continuing Indwelling Catheter: Accurate Measurement of Urinary Output in Critically Ill Patients Data 11/12/23 03:45 11/12/23 03:45 Micro: Microbiology 11/11/23 17:02 Blood Culture - Preliminary Blood SPECIMEN COLLECTED 11/11/23 16:50 Blood Culture - Preliminary Blood SPECIMEN COLLECTED A&P Assessment and plan (1) Shortness of breath: Most likely is a combination of COPD exacerbation in setting of parainfluenza infection, mild congestive heart failure in setting of severe aortic stenosis. Oxygen supplementation keeping saturation over 90%. For now continue with hydrocortisone 50 mg 3 times daily. Will wean within next 24 hours. Start on ipratropium, Xopenex every 6 hours. Change Pulmicort to 0.5 twice daily. Incentive spirometry. Out of bed to chair. Tessalon Perles 200 mg 3 times daily. Less concerns for congestive heart failure for now. Hold off on diuretics. Fluid restriction up to 1500 cc. Strict input output charting, daily weights. Check sputum culture, urine Legionella, bacterial antigen. Low concerns for bacterial pneumonia for now. Continue with IV ceftriaxone started for possible UTI. For now start on azithromycin 500 mg daily to cover for atypical till Legionella and bacterial antigen are resulted. (2) Viral respiratory illness: (3) Severe aortic valve stenosis: Known diagnosis. Currently under evaluation for TAVR placement and has met requirements per her understanding but awaits a date for surgical intervention. Was seen by Dr. Lnace in [place]. (4) Urinary tract infection: Follow-up blood culture. Check urine culture. Already on ceftriaxone as above. (5) Adrenal insufficiency: Noted during last hospital stay in August of this year. Has continued to be on steroid since then, with most recent change on October 27 being decreasing to 10 mg daily for 1 week and then cutting down to 5 mg daily of prednisone. Continue with IV hydrocortisone as above. Wean accordingly. (6) Chronic anticoagulation: Chronically on Eliquis due to history of DVT and PE. Had recent CTA of the chest done at another facility on October 29 that did not demonstrate any evidence of pulmonary embolism or other vascular thrombosis. Vascular abnormalities were limited to ascending aortic dilatation at 4.1 cm. Continue with home dose of Eliquis. Recent cardiac angiogram within the last 3 months negative for obstructive CAD. (7) Hypothyroidism: Chronically on levothyroxine (8) Hypertension: Goal blood pressure less than 140/90 mmHg. History of adrenal insufficiency. Monitor blood pressures and restart antihypertensive accordingly as needed. 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 Oro. Most recent note from October 21, 2023 indicates she will not be receiving any further immunotherapy, has completed course of neoadjuvant therapy and that she has a residual nodule in the left breast for which she will need to undergo lumpectomy and sentinel axillary lymph node biopsy when feasible after addressing cardiovascular needs prior to other surgical intervention. Qualifiers: Breast location: nipple Estrogen receptor status: negative Patient sex: female Laterality: left Qualified Code(s): C50.012 - Malignant neoplasm of nipple and areola, left female breast; Z17.1 - Estrogen receptor negative status [ER-] (11) Interstitial lung disease: Secondary to effects from COVID-19 in 202. Also has known pulmonary nodule that has been stable over time. (12) Port-A-Cath in place: Right upper chest Plan VTE prophylaxis: eliquis GI Prophylaxis: Protonix daily Cardiac diet Code Status: Full Code. Daughter will be the DPOA. 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
[2023-11-12] MEDS: ipratropium 0.5 mg/2.5 mL Neb INHALATION ×2 (13:36→19:39)
[2023-11-12] MEDS: levalbuterol 0.63 mg/3 mL Neb INHALATION ×2 (13:37→19:39)
[2023-11-12] MEDS: azithromycin 250 mg Tablet 500 MG PO (14:33)
[2023-11-12] MEDS: benzonatate 100 mg Capsule 200 MG PO ×2 (14:33→20:07)
[2023-11-12] MEDS: budesonide 0.5 mg/2 mL Neb INHALATION (19:39)
[2023-11-13] VITALS (43 sets, daily range): BP systolic 103–130; BP diastolic 59–87; PULSE 88–107; RESP 16–49; TEMP 36.4–36.6; O2SAT 90–98; BMI 38.7
[2023-11-13] MEDS: levalbuterol 0.63 mg/3 mL Neb INHALATION ×4 (01:36→20:02)
[2023-11-13] MEDS: ipratropium 0.5 mg/2.5 mL Neb INHALATION ×4 (01:36→20:02)
[2023-11-13] MEDS: hydrocortisone 100 mg/2 mL SDV 50 MG IVP ×2 (05:15→16:24)
[2023-11-13] MEDS: levothyroxine 100 mcg Tablet PO (05:15)
[2023-11-13 05:37] LABS: Hematocrit 45.9 % (36-47); Mean Corpuscular HGB Conc 31.8 g/dL (30-55); Mean Corpuscular Hemoglobin 32.8 pg (27-33); Mean Corpuscular Volume 103.1 fl (85-98); Red Blood Count 4.45 10^6/uL (3.85-5.65); Red Cell Distribution Width 14.6 % (12.1-15.1); White Blood Count 3.36 10^3/uL (3.29-11.43)
[2023-11-13 05:38] LABS: Lymphocytes # 0.3 10^3/uL (0.8-4.8); Lymphocytes % 8.3 %; Mean Platelet Volume 9.8 fL (7.4-10.4); Monocytes # 0.2 10^3/uL (0.2-0.9); Monocytes % 6.8 %; Neutrophils # 2.83 10^3/uL (1.8-7.7); Neutrophils % 84.3 %; Nucleated Red Blood Cells % 0 %; Platelet Count 105 10^3/cmm (157-399)
[2023-11-13 06:09] LABS: Alanine Aminotransferase 15 U/L (0-33); Albumin Level 3.1 g/dL (3.5-5.2); Alkaline Phosphatase 64 U/L (35-105); Anion Gap 13.9 (5-19); Aspartate Amino Transferase 20 U/L (0-32); Blood Urea Nitrogen 18 mg/dL (8-23); Calcium 8.6 mg/dL (8.5-10.5); Carbon Dioxide 26 mmol/L (22-29); Chloride 100 mmol/L (98-107); Globulin 2.7 g/dL (1.3-4.6); Glucose 123 mg/dL (65-115); Osmolality Calculated 285 mOsm/kg (285-295); Potassium 3.9 mmol/L (3.5-5.1); Sodium 136 mmol/L (136-145); Total Bilirubin 0.3 mg/dL (0.15-1.2); Total Protein 5.8 g/dL (6.6-8.7)
--- NOTE | 2023-11-13 07:05 | P.PN_ITS ---
Subjective 2 Subjective: Patient is feeling well. no chest pain. Breathing at rest is improved. Vitals/I&O/Wt Last Vital Signs Temp 97.5 F L 11/13/23 06:00 Pulse 89 11/13/23 06:00 Resp 16 11/13/23 06:00 BP 118/73 11/13/23 06:00 Pulse Ox 94 11/13/23 06:00 O2 Del Method Nasal Cannula 11/13/23 06:00 O2 Flow Rate 4 11/13/23 06:00 FiO2 40 11/12/23 01:53 11/12/23 11/13/23 11/13/23 22:59 06:59 14:59 Output Total 50 / 50 607 / 657 Balance -50 / 320 -607 / -287 Weight last 48 hrs Weight 240 lb 4.8 oz Weight 225 lb 9 oz Weight 225 lb 9 oz Weight 225 lb 9 oz Physical Exam 2 Narrative: GENERAL: Patient is alert, awake and oriented x3. [] NECK: No jugular vein distension. [] HEENT: No cyanosis. No icterus. No pallor. [] HEART: Regular S1 and S2. Grade 3/6 systolic murmur LUNGS: Diminished air entry bilaterally CENTRAL NERVOUS SYSTEM: Grossly nonfocal. [] EXTREMITIES: Lower extremities with 1+ edema bilaterally Urinary Catheter Management: Jones: Cath Placed During This Visit: no Reason for Continuing Indwelling Catheter: Other Data 11/14/23 05:01 11/14/23 05:01 Micro: Microbiology 11/12/23 20:15 Legionella Urinary Antigen - Final Unknown Source 11/11/23 17:02 Blood Culture - Preliminary Blood NEGATIVE TO DATE 11/11/23 16:50 Blood Culture - Preliminary Blood NEGATIVE TO DATE A&P Assessment and plan (1) Severe aortic valve stenosis: (2) Hypertension: (3) Dyslipidemia: (4) Pulmonary embolism: Qualifiers: Pulmonary embolism type: unspecified Chronicity: chronic Acute cor pulmonale presence: without acute cor pulmonale Qualified Code(s): I27.82 - Chronic pulmonary embolism (5) DVT (deep venous thrombosis): Qualifiers: DVT location: lower extremity Affected thrombotic vein of extremity: u nspecified lower extremity proximal vein Chronicity: chronic Laterality: b ilateral Qualified Code(s): I82.5Y3 - Chronic embolism and thrombosis of unspecified deep veins of proximal lower extremity, bilateral (6) Elevated troponin: (7) Shortness of breath: Plan Patient feeling well. Has parainfluenza viral infection. Blood pressure is stable. Gentle diuresis. Thank you for involving us with care of this patient. We will continue to follow. Please call with questions. Attestations 2 Medical Necessity Statement*: Care expected to cross 2 midnights. Coding Level of Care Code Acute Code for [facility] Fwd Diagnoses Severe aortic valve stenosis I35.0 Hypertension I10 Dyslipidemia E78.5 Chronic pulmonary embolism without acute cor pulmonale, unspecified pulmonary embolism type I27.82 Pulmonary embolism type: unspecified Chronicity: chronic Acute cor pulmonale presence: without acute cor pulmonale Chronic deep vein thrombosis (DVT) of proximal vein of both lower extremities I82.5Y3 DVT location: lower extremity Affected thrombotic vein of extremity: unspecified lower extremity proximal vein Chronicity: chronic Laterality: bilateral Elevated troponin R79.89 Shortness of breath R06.02
[2023-11-13] MEDS: budesonide 0.5 mg/2 mL Neb INHALATION ×2 (07:53→20:02)
--- NOTE | 2023-11-13 09:50 | PC.NURSE ---
Fluid restriction: Unable to ascertain when the 24hr starts for the 1500ml. So restarted at 0700. Dr Zazueta notified of issue, okay'd.
[2023-11-13] MEDS: benzonatate 100 mg Capsule 200 MG PO ×3 (10:10→20:41)
[2023-11-13] MEDS: pantoprazole 40 mg SDV IVP (10:10)
[2023-11-13] MEDS: azithromycin 250 mg Tablet 500 MG PO (10:11)
[2023-11-13] MEDS: fluconazole 100 mg Tablet PO (10:11)
[2023-11-13] MEDS: tolterodine 2 mg Tablet PO ×2 (10:11→18:15)
[2023-11-13] MEDS: fluoxetine 20 mg Capsule PO (10:11)
[2023-11-13] MEDS: potassium chloride ER 10 mEq Tablet PO (10:11)
[2023-11-13] MEDS: loratadine 10 mg Tablet PO (10:11)
[2023-11-13] MEDS: cefTRIAXone 1,000 mg SDV 1000 MG IVP (10:12)
[2023-11-13] MEDS: apixaban 5 mg Tablet PO ×2 (10:13→20:41)
[2023-11-13] MEDS: fluticasone nasal spray 16gm Btl 1 SPRAY NASAL ×2 (10:18→18:16)
[2023-11-13] MEDS: FUROsemide 20 mg Tablet PO (12:32)
--- NOTE | 2023-11-13 14:51 | P.PN_ITS ---
Subjective 2 Subjective: Events overnight. Patient remains on T-piece liters of oxygen supplementation. Saturating well. Hemodynamically stable. Continues to feel weak. States cough seems to be getting worse. Working well with incentive spirometry. Vitals/I&O/Wt Last Vital Signs Temp 97.5 F L 11/13/23 08:00 Pulse 90 11/13/23 13:44 Resp 16 11/13/23 13:30 BP 117/69 11/13/23 12:00 Pulse Ox 95 11/13/23 13:30 O2 Del Method Nasal Cannula 11/13/23 13:30 O2 Flow Rate 3 11/13/23 13:30 FiO2 40 11/12/23 01:53 11/12/23 11/13/23 11/13/23 22:59 06:59 14:59 Intake Total 558 / 558 Output Total 50 / 50 607 / 657 500 / 500 Balance -50 / 320 -607 / -287 58 / 58 Weight last 48 hrs Weight 108.998 kg Weight 102.313 kg Weight 102.313 kg Weight 102.313 kg Physical Exam 2 Narrative: General: No acute distress, AO x3, elderly, chronically sick appearing HEENT: PERRLA, pupils bilaterally equal and reactive Chest: Bilateral bronchial breath sounds all over lung field with occasional rhonchi and crackles mostly in the right lower zone CVS: S1-S2 regular, ejection systolic murmur at aortic region 2/6 with minimal radiation to carotids, no tachycardia, no gallops, no rubs Abdomen: Soft, nontender, no organomegaly, bowel sounds present Neuro: No focal deficits, no facial deformity, AO x3, power 5/5 in all limbs Urinary Catheter Management: Jones: Cath Placed During This Visit: no Reason for Continuing Indwelling Catheter: Other Data 11/13/23 04:58 11/13/23 04:58 Micro: Microbiology 11/12/23 18:30 Gram Stain - Final Sputum - Expectorated Sputum Sputum Culture - Preliminary 11/12/23 20:15 Bacterial Antigens - Final Urine Kidney 11/12/23 20:15 Legionella Urinary Antigen - Final Unknown Source 11/11/23 17:02 Blood Culture - Preliminary Blood NEGATIVE TO DATE 11/11/23 16:50 Blood Culture - Preliminary Blood NEGATIVE TO DATE A&P Assessment and plan (1) Shortness of breath: Most likely is a combination of COPD exacerbation in setting of parainfluenza infection, mild congestive heart failure in setting of severe aortic stenosis. Oxygen supplementation keeping saturation over 90%. Wean hydrocortisone to 50 mg every 12 hourly. Continue with ipratropium, Xopenex every 6 hours, Pulmicort to 0.5 twice daily. Incentive spirometry. Out of bed to chair. Tessalon Perles 200 mg 3 times daily. Flonase twice daily. Less concerns for congestive heart failure for now. Start on low-dose diuretic with Lasix 20 mg oral daily. Fluid restriction up to 1500 cc. Strict input output charting, daily weights. Check sputum culture, urine Legionella, bacterial antigen. Low concerns for bacterial pneumonia for now. Continue with IV ceftriaxone started for possible UTI. Continue with azithromycin 5 mg oral daily for 3 days overall. Last dose on 11/13. (2) Viral respiratory illness: (3) Severe aortic valve stenosis: Known diagnosis. Currently under evaluation for TAVR placement and has met requirements per her understanding but awaits a date for surgical intervention. Was seen by Dr. Lance in [place]. (4) Urinary tract infection: Follow-up blood culture. Check urine culture. Already on ceftriaxone as above. (5) Adrenal insufficiency: Noted during last hospital stay in August of this year. Has continued to be on steroid since then, with most recent change on October 27 being decreasing to 10 mg daily for 1 week and then cutting down to 5 mg daily of prednisone. Continue with IV hydrocortisone as above. Wean accordingly. (6) Chronic anticoagulation: Chronically on Eliquis due to history of DVT and PE. Had recent CTA of the chest done at another facility on October 29 that did not demonstrate any evidence of pulmonary embolism or other vascular thrombosis. Vascular abnormalities were limited to ascending aortic dilatation at 4.1 cm. Continue with home dose of Eliquis. Recent cardiac angiogram within the last 3 months negative for obstructive CAD. (7) Hypothyroidism: Chronically on levothyroxine (8) Hypertension: Goal blood pressure less than 140/90 mmHg. History of adrenal insufficiency. Monitor blood pressures and restart antihypertensive accordingly as needed. 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 Oro. Most recent note from October 21, 2023 indicates she will not be receiving any further immunotherapy, has completed course of neoadjuvant therapy and that she has a residual nodule in the left breast for which she will need to undergo lumpectomy and sentinel axillary lymph node biopsy when feasible after addressing cardiovascular needs prior to other surgical intervention. Qualifiers: Breast location: nipple Estrogen receptor status: negative Patient sex: female Laterality: left Qualified Code(s): C50.012 - Malignant neoplasm of nipple and areola, left female breast; Z17.1 - Estrogen receptor negative status [ER-] (11) Interstitial lung disease: Secondary to effects from COVID-19 in 2021. Also has known pulmonary nodule that has been stable over time. (12) Port-A-Cath in place: Right upper chest Plan VTE prophylaxis: eliquis GI Prophylaxis: Protonix daily Cardiac diet Code Status: Full Code. Daughter will be the DPOA. Transfer to [facility]. Out of bed to chair. 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
--- NOTE | 2023-11-13 18:46 | PC.NURSE ---
Shift summary: Pt has denied pain throughout shift. She has been coughing frequently. She remains on 4lpm/NC. Her port a cath flushed and draws blood with ease. She resting in bed until lunchtime , she has sat up in chair since. She is tolerating well. She stated she felt better after her 2 hour nap this afternoon. She remains in sinus rhythm. She has ate majority of every meal. She has nearly went through her alotted 1500ml of fluid already today. Urine out put of 1000ml this shift. NO BM noted.
[2023-11-14] VITALS (33 sets, daily range): BP systolic 86–124; BP diastolic 51–79; PULSE 84–97; RESP 18–36; TEMP 36.6–36.8; O2SAT 88–97; BMI 36.6
[2023-11-14] MEDS: ipratropium 0.5 mg/2.5 mL Neb INHALATION ×4 (02:11→20:13)
[2023-11-14] MEDS: levalbuterol 0.63 mg/3 mL Neb INHALATION ×4 (02:11→20:13)
[2023-11-14] MEDS: hydrocortisone 100 mg/2 mL SDV 50 MG IVP (04:44)
[2023-11-14 06:15] LABS: Basophils % 0.2 %; Hematocrit 30.9 % (36-47); Lymphocytes # 0.8 10^3/uL (0.8-4.8); Lymphocytes % 15.7 %; Mean Corpuscular HGB Conc 31.4 g/dL (30-55); Mean Corpuscular Hemoglobin 33.6 pg (27-33); Mean Corpuscular Volume 106.9 fl (85-98); Mean Platelet Volume 10.2 fL (7.4-10.4); Monocytes # 0.5 10^3/uL (0.2-0.9); Monocytes % 9.5 %; Neutrophils # 3.73 10^3/uL (1.8-7.7); Nucleated Red Blood Cells % 0 %; Platelet Count 153 10^3/cmm (157-399); Red Blood Count 2.89 10^6/uL (3.85-5.65); Red Cell Distribution Width 14.7 % (12.1-15.1); White Blood Count 5.04 10^3/uL (3.29-11.43)
[2023-11-14] MEDS: levothyroxine 100 mcg Tablet PO (06:25)
[2023-11-14 06:35] LABS: Alanine Aminotransferase 14 U/L (0-33); Albumin Level 2.9 g/dL (3.5-5.2); Alkaline Phosphatase 72 U/L (35-105); Anion Gap 12.8 (5-19); Aspartate Amino Transferase 19 U/L (0-32); Blood Urea Nitrogen 14 mg/dL (8-23); Calcium 8.8 mg/dL (8.5-10.5); Carbon Dioxide 28 mmol/L (22-29); Chloride 103 mmol/L (98-107); Creatinine Clr Calc Pharmacy 64.5714; Globulin 2.8 g/dL (1.3-4.6); Glucose 96 mg/dL (65-115); Osmolality Calculated 290 mOsm/kg (285-295); Potassium 3.8 mmol/L (3.5-5.1); Sodium 140 mmol/L (136-145); Total Bilirubin 0.2 mg/dL (0.15-1.2); Total Protein 5.7 g/dL (6.6-8.7)
[2023-11-14] MEDS: budesonide 0.5 mg/2 mL Neb INHALATION ×2 (08:21→20:13)
--- NOTE | 2023-11-14 08:28 | PC.SOCIAL ---
IMM Update pg 2 of IMM Updated and reviewed w/ patient. Copy provided and copy dated, initialed and placed in chart.
[2023-11-14] MEDS: fluconazole 100 mg Tablet PO (09:22)
[2023-11-14] MEDS: benzonatate 100 mg Capsule 200 MG PO ×3 (09:22→21:54)
[2023-11-14] MEDS: apixaban 5 mg Tablet PO ×2 (09:22→21:54)
[2023-11-14] MEDS: tolterodine 2 mg Tablet PO ×2 (09:22→17:08)
[2023-11-14] MEDS: fluoxetine 20 mg Capsule PO (09:23)
[2023-11-14] MEDS: cefTRIAXone 1,000 mg SDV 1000 MG IVP (09:23)
[2023-11-14] MEDS: loratadine 10 mg Tablet PO (09:23)
[2023-11-14] MEDS: FUROsemide 20 mg Tablet PO (09:23)
[2023-11-14] MEDS: potassium chloride ER 10 mEq Tablet PO (09:23)
[2023-11-14] MEDS: pantoprazole 40 mg SDV IVP (09:23)
[2023-11-14] MEDS: azithromycin 250 mg Tablet 500 MG PO (09:23)
[2023-11-14] MEDS: fluticasone nasal spray 16gm Btl 1 SPRAY NASAL ×2 (09:46→17:11)
--- NOTE | 2023-11-14 11:30 | P.PN_ITS ---
Subjective 2 Subjective: Breathing is improving. No chest pain Vitals/I&O/Wt Last Vital Signs Temp 98.1 F 11/14/23 09:30 Pulse 96 11/14/23 10:00 Resp 28 H 11/14/23 10:00 BP 109/75 11/14/23 10:00 Pulse Ox 96 11/14/23 10:00 O2 Del Method Nasal Cannula 11/14/23 08:23 O2 Flow Rate 2 11/14/23 09:30 FiO2 40 11/12/23 01:53 11/13/23 11/14/23 11/14/23 22:59 06:59 14:59 Intake Total 615 / 1173 120 / 120 Output Total 500 / 1000 1000 / 2000 Balance 115 / 173 -1000 / -827 120 / 120 Weight last 48 hrs Weight 227 lb Weight 227 lb Weight 240 lb 4.8 oz Physical Exam 2 Narrative: GENERAL: Patient is alert, awake and oriented x3. [] NECK: No jugular vein distension. [] HEENT: No cyanosis. No icterus. No pallor. [] HEART: Regular S1 and S2. Grade 3/6 systolic murmur LUNGS: Diminished air entry bilaterally CENTRAL NERVOUS SYSTEM: Grossly nonfocal. [] EXTREMITIES: Lower extremities with 1+ edema bilaterally Urinary Catheter Management: Jones: Cath Placed During This Visit: no Reason for Continuing Indwelling Catheter: Accurate Measurement of Urinary Output in Critically Ill Patients Data 11/15/23 04:20 11/15/23 04:20 Micro: Microbiology 11/12/23 18:30 Gram Stain - Final Sputum - Expectorated Sputum Sputum Culture - Preliminary 11/12/23 20:15 Bacterial Antigens - Final Urine Kidney A&P Assessment and plan (1) Severe aortic valve stenosis: (2) Hypertension: (3) Dyslipidemia: (4) Pulmonary embolism: Qualifiers: Pulmonary embolism type: unspecified Chronicity: chronic Acute cor pulmonale presence: without acute cor pulmonale Qualified Code(s): I27.82 - Chronic pulmonary embolism (5) DVT (deep venous thrombosis): Qualifiers: DVT location: lower extremity Affected thrombotic vein of extremity: u nspecified lower extremity proximal vein Chronicity: chronic Laterality: b ilateral Qualified Code(s): I82.5Y3 - Chronic embolism and thrombosis of unspecified deep veins of proximal lower extremity, bilateral (6) Elevated troponin: (7) Shortness of breath: Plan Patient is stable from cardiac standpoint. Continue gentle diuresis. Awaiting outpatient TAVR procedure. Thank you for involving us with care of this patient. We will continue to follow. Please call with questions. Attestations 2 Medical Necessity Statement*: Care expected to cross 2 midnights. Coding Level of Care Code Acute Code for g Fwd Diagnoses Severe aortic valve stenosis I35.0 Hypertension I10 Dyslipidemia E78.5 Chronic pulmonary embolism without acute cor pulmonale, unspecified pulmonary embolism type I27.82 Pulmonary embolism type: unspecified Chronicity: chronic Acute cor pulmonale presence: without acute cor pulmonale Chronic deep vein thrombosis (DVT) of proximal vein of both lower extremities I82.5Y3 DVT location: lower extremity Affected thrombotic vein of extremity: unspecified lower extremity proximal vein Chronicity: chronic Laterality: bilateral Elevated troponin R79.89 Shortness of breath R06.02
--- NOTE | 2023-11-14 12:11 | PC.NURSE ---
Transfer Note Patient transferred to C[facility] room 103 from ICU via wheelchair. Handoff report given to TAYLER Bullock. Patient oriented to environment and equipment. Covering service notified. Orders reviewed and will continue to monitor. Upon transfer patient is alert/oriented x4 on 3LNC, no wounds or skin issues noted at this time. All patient belongings taken with patient and placed at bedside.
--- NOTE | 2023-11-14 12:18 | P.PN_ITS ---
Subjective 2 Subjective: No complaints overnight. Today morning patient seen after working with physical therapy. She is sitting in recliner today. She walked farther than yesterday. States she is feeling stronger. Cough seems to be improving today. Currently down to 2 L saturating more than 92%. Did require up to 4 L during exertion with physical therapy. Hemodynamically stable. Appreciate urine output. Vitals/I&O/Wt Last Vital Signs Temp 98.1 F 11/14/23 09:30 Pulse 96 11/14/23 10:00 Resp 28 H 11/14/23 10:00 BP 109/75 11/14/23 10:00 Pulse Ox 96 11/14/23 10:00 O2 Del Method Nasal Cannula 11/14/23 08:23 O2 Flow Rate 2 11/14/23 09:30 FiO2 40 11/12/23 01:53 11/13/23 11/14/23 11/14/23 22:59 06:59 14:59 Intake Total 615 / 1173 120 / 120 Output Total 500 / 1000 1000 / 2000 Balance 115 / 173 -1000 / -827 120 / 120 Weight last 48 hrs Weight 102.965 kg Weight 102.965 kg Weight 108.998 kg Physical Exam 2 Narrative: General: No acute distress, AO x3, elderly, chronically sick appearing HEENT: PERRLA, pupils bilaterally equal and reactive Chest: Bilateral bronchial breath sounds all over lung field with occasional rhonchi and crackles mostly in the right lower zone CVS: S1-S2 regular, ejection systolic murmur at aortic region 2/6 with minimal radiation to carotids, no tachycardia, no gallops, no rubs Abdomen: Soft, nontender, no organomegaly, bowel sounds present Neuro: No focal deficits, no facial deformity, AO x3, power 5/5 in all limbs Urinary Catheter Management: Jones: Cath Placed During This Visit: no Reason for Continuing Indwelling Catheter: Accurate Measurement of Urinary Output in Critically Ill Patients Data 11/14/23 05:01 11/14/23 05:01 Micro: Microbiology 11/12/23 18:30 Gram Stain - Final Sputum - Expectorated Sputum Sputum Culture - Preliminary 11/12/23 20:15 Bacterial Antigens - Final Urine Kidney A&P Assessment and plan (1) Shortness of breath: Most likely is a combination of COPD exacerbation in setting of parainfluenza infection, mild congestive heart failure in setting of severe aortic stenosis. Oxygen supplementation keeping saturation over 90%. Wean hydrocortisone to 50 mg every 12 hourly. Continue with ipratropium, Xopenex every 6 hours, Pulmicort to 0.5 twice daily. Incentive spirometry. Out of bed to chair. Tessalon Perles 200 mg 3 times daily. Flonase twice daily. Less concerns for congestive heart failure for now. Start on low-dose diuretic with Lasix 20 mg oral daily. Fluid restriction up to 1500 cc. Strict input output charting, daily weights. Check sputum culture, urine Legionella, bacterial antigen. Low concerns for bacterial pneumonia for now. Continue with IV ceftriaxone started for possible UTI. Continue with azithromycin 5 mg oral daily for 3 days overall. Last dose on 11/13. (2) Viral respiratory illness: (3) Severe aortic valve stenosis: Known diagnosis. Currently under evaluation for TAVR placement and has met requirements per her understanding but awaits a date for surgical intervention. Was seen by Dr. Lance in [place]. (4) Urinary tract infection: Follow-up blood culture. Check urine culture. Already on ceftriaxone as above. (5) Adrenal insufficiency: Noted during last hospital stay in August of this year. Has continued to be on steroid since then, with most recent change on October 27 being decreasing to 10 mg daily for 1 week and then cutting down to 5 mg daily of prednisone. Continue with IV hydrocortisone as above. Wean accordingly. (6) Chronic anticoagulation: Chronically on Eliquis due to history of DVT and PE. Had recent CTA of the chest done at another facility on October 29 that did not demonstrate any evidence of pulmonary embolism or other vascular thrombosis. Vascular abnormalities were limited to ascending aortic dilatation at 4.1 cm. Continue with home dose of Eliquis. Recent cardiac angiogram within the last 3 months negative for obstructive CAD. (7) Hypothyroidism: Chronically on levothyroxine (8) Hypertension: Goal blood pressure less than 140/90 mmHg. History of adrenal insufficiency. Monitor blood pressures and restart antihypertensive accordingly as needed. 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 Oro. Most recent note from October 21, 2023 indicates she will not be receiving any further immunotherapy, has completed course of neoadjuvant therapy and that she has a residual nodule in the left breast for which she will need to undergo lumpectomy and sentinel axillary lymph node biopsy when feasible after addressing cardiovascular needs prior to other surgical intervention. Qualifiers: Breast location: nipple Estrogen receptor status: negative Patient sex: female Laterality: left Qualified Code(s): C50.012 - Malignant neoplasm of nipple and areola, left female breast; Z17.1 - Estrogen receptor negative status [ER-] (11) Interstitial lung disease: Secondary to effects from COVID-19 in 2021. Also has known pulmonary nodule that has been stable over time. (12) Port-A-Cath in place: Right upper chest Plan VTE prophylaxis: eliquis GI Prophylaxis: Protonix daily Cardiac diet Code Status: Full Code. Daughter will be the DPOA. Plan for the day: Continue with azithromycin to finish a 3-day course. Continue with IV ceftriaxone. Continue with aggressive pulmonary toilet with incentive spirometry. Wean hydrocortisone to 25 mg every 12 hourly. Will plan to continue weaning till 10 mg oral prednisone within next 24 to 48 hours. Patient does have history of adrenal insufficiency at baseline so we will plan to continue with at least 5 mg of prednisone on discharge. Wean oxygen supplementation keeping saturation over 90%. Continue with oral 20 mg Lasix. Fluid restriction. Discharge plan: Discussed in detail with the patient. Patient is frail with concerns for severe aortic stenosis requiring TAVR, recurrent episode of respiratory failure recently secondary to COVID-19 and now with parainfluenza. Patient would benefit with rehabitation and physical therapy. She is agreeable to transfer to SNF. Case management alerted. Transfer to [facility] once bed is available. Attestations 2 Medical Necessity Statement*: Requires further hospitalization for management of hypoxic respiratory failure in setting of COPD exacerbation secondary to parainfluenza infection, right lower lobe pneumonia in a patient with history of severe aortic stenosis being worked up for TAVR as an outpatient while safe discharge planning. 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
--- NOTE | 2023-11-14 15:10 | PC.NURSE ---
Assisted patient to bed x2 assist. Patient tolerated fair. Patient c/o cold. Turned up the temperature. Patient expressed thanks.
[2023-11-14] MEDS: hydrocortisone 100 mg/2 mL SDV 25 MG IVP (15:18)
[2023-11-15] VITALS (15 sets, daily range): BP systolic 107–137; BP diastolic 58–77; PULSE 88–99; RESP 16–29; TEMP 36.6–36.9; O2SAT 91–98
[2023-11-15] MEDS: ipratropium 0.5 mg/2.5 mL Neb INHALATION ×4 (02:07→20:51)
[2023-11-15] MEDS: levalbuterol 0.63 mg/3 mL Neb INHALATION ×4 (02:07→20:51)
[2023-11-15] MEDS: hydrocortisone 100 mg/2 mL SDV 25 MG IVP (04:28)
[2023-11-15 05:23] LABS: Basophils % 0.2 %; Eosinophils % 0.2 %; Hematocrit 31.9 % (36-47); Lymphocytes # 1.1 10^3/uL (0.8-4.8); Lymphocytes % 20.6 %; Mean Corpuscular Hemoglobin 32.6 pg (27-33); Mean Corpuscular Volume 104.9 fl (85-98); Mean Platelet Volume 10.2 fL (7.4-10.4); Monocytes # 0.6 10^3/uL (0.2-0.9); Monocytes % 10.9 %; Neutrophils # 3.64 10^3/uL (1.8-7.7); Nucleated Red Blood Cells % 0 %; Platelet Count 163 10^3/cmm (157-399); Red Blood Count 3.04 10^6/uL (3.85-5.65); Red Cell Distribution Width 14.7 % (12.1-15.1); White Blood Count 5.43 10^3/uL (3.29-11.43)
[2023-11-15] MEDS: levothyroxine 100 mcg Tablet PO (05:27)
[2023-11-15 05:50] LABS: Alanine Aminotransferase 15 U/L (0-33); Albumin Level 3.1 g/dL (3.5-5.2); Alkaline Phosphatase 63 U/L (35-105); Anion Gap 12.8 (5-19); Aspartate Amino Transferase 18 U/L (0-32); Blood Urea Nitrogen 15 mg/dL (8-23); Calcium 9.3 mg/dL (8.5-10.5); Carbon Dioxide 26 mmol/L (22-29); Chloride 101 mmol/L (98-107); Creatinine Clr Calc Pharmacy 65.7924; Globulin 2.9 g/dL (1.3-4.6); Glucose 96 mg/dL (65-115); Osmolality Calculated 283 mOsm/kg (285-295); Potassium 3.8 mmol/L (3.5-5.1); Sodium 136 mmol/L (136-145); Total Bilirubin 0.2 mg/dL (0.15-1.2)
[2023-11-15] MEDS: benzonatate 100 mg Capsule 200 MG PO ×3 (09:05→20:11)
[2023-11-15] MEDS: potassium chloride ER 10 mEq Tablet PO (09:06)
[2023-11-15] MEDS: loratadine 10 mg Tablet PO (09:06)
[2023-11-15] MEDS: FUROsemide 20 mg Tablet PO (09:06)
[2023-11-15] MEDS: azithromycin 250 mg Tablet 500 MG PO (09:07)
[2023-11-15] MEDS: fluconazole 100 mg Tablet PO (09:07)
[2023-11-15] MEDS: pantoprazole 40 mg SDV IVP (09:07)
[2023-11-15] MEDS: fluoxetine 20 mg Capsule PO (09:07)
[2023-11-15] MEDS: cefTRIAXone 1,000 mg SDV 1000 MG IVP (09:08)
[2023-11-15] MEDS: fluticasone nasal spray 16gm Btl 1 SPRAY NASAL ×2 (09:09→17:37)
[2023-11-15] MEDS: budesonide 0.5 mg/2 mL Neb INHALATION ×2 (09:13→20:51)
[2023-11-15] MEDS: predniSONE 10 mg Tablet PO (10:57)
[2023-11-15] MEDS: apixaban 5 mg Tablet PO ×2 (10:57→20:12)
[2023-11-15] MEDS: tolterodine 2 mg Tablet PO ×2 (10:57→17:37)
--- NOTE | 2023-11-15 11:33 | PC.NURSE ---
Patient up to chair at 1133. Tolerated fair. Became slightly short of breath but recovered. Heart rate was 107 and oxygen was at 91%.
--- NOTE | 2023-11-15 12:57 | PC.NURSE ---
Patient showed nurse a tissue with bloody mucus from nose. Approx 3 ml of blood on tissue. Nurse informed patient it might be from wearing the oxygen and to report any additional bloody mucus to nurse. Patient verbalized understanding.
--- NOTE | 2023-11-15 13:35 | P.PN_ITS ---
Subjective 2 Subjective: No acute events overnight. Laying comfortably in bed. Worked with physical therapy though getting extremely short of breath on minimal exertion. Breathing better at rest otherwise. Vitals/I&O/Wt Last Vital Signs Temp 98.0 F 11/15/23 12:00 Pulse 95 11/15/23 12:00 Resp 21 H 11/15/23 12:00 BP 137/77 11/15/23 12:00 Pulse Ox 92 11/15/23 12:00 O2 Del Method Nasal Cannula 11/15/23 12:00 O2 Flow Rate 2 11/15/23 09:14 FiO2 40 11/12/23 01:53 11/14/23 11/15/23 11/15/23 22:59 06:59 14:59 Intake Total 700 / 940 200 / 1140 480 / 480 Output Total 350 / 350 100 / 450 Balance 350 / 590 100 / 690 480 / 480 Weight last 48 hrs Weight 106.594 kg Weight 102.965 kg Weight 102.965 kg Physical Exam 2 Narrative: General: No acute distress, AO x3, elderly, chronically sick appearing HEENT: PERRLA, pupils bilaterally equal and reactive Chest: Bilateral bronchial breath sounds all over lung field with occasional rhonchi and crackles mostly in the right lower zone CVS: S1-S2 regular, ejection systolic murmur at aortic region 2/6 with minimal radiation to carotids, no tachycardia, no gallops, no rubs Abdomen: Soft, nontender, no organomegaly, bowel sounds present Neuro: No focal deficits, no facial deformity, AO x3, power 5/5 in all limbs Urinary Catheter Management: Jones: Cath Placed During This Visit: no Reason for Continuing Indwelling Catheter: Other Data 11/15/23 04:20 11/15/23 04:20 Micro: Microbiology 11/12/23 18:30 Gram Stain - Final Sputum - Expectorated Sputum Sputum Culture - Final A&P Assessment and plan (1) Shortness of breath: Most likely is a combination of COPD exacerbation in setting of parainfluenza infection, mild congestive heart failure in setting of severe aortic stenosis. Oxygen supplementation keeping saturation over 90%. Wean hydrocortisone to 50 mg every 12 hourly. Continue with ipratropium, Xopenex every 6 hours, Pulmicort to 0.5 twice daily. Incentive spirometry. Out of bed to chair. Tessalon Perles 200 mg 3 times daily. Flonase twice daily. Less concerns for congestive heart failure for now. Start on low-dose diuretic with Lasix 20 mg oral daily. Fluid restriction up to 1500 cc. Strict input output charting, daily weights. Check sputum culture, urine Legionella, bacterial antigen. Low concerns for bacterial pneumonia for now. Continue with IV ceftriaxone started for possible UTI. Continue with azithromycin 5 mg oral daily for 3 days overall. Last dose on 11/13. (2) Viral respiratory illness: (3) Severe aortic valve stenosis: Known diagnosis. Currently under evaluation for TAVR placement and has met requirements per her understanding but awaits a date for surgical intervention. Was seen by Dr. Lance in [place]. (4) Urinary tract infection: Follow-up blood culture. Check urine culture. Already on ceftriaxone as above. (5) Adrenal insufficiency: Noted during last hospital stay in August of this year. Has continued to be on steroid since then, with most recent change on October 27 being decreasing to 10 mg daily for 1 week and then cutting down to 5 mg daily of prednisone. Continue with IV hydrocortisone as above. Wean accordingly. (6) Chronic anticoagulation: Chronically on Eliquis due to history of DVT and PE. Had recent CTA of the chest done at another facility on October 29 that did not demonstrate any evidence of pulmonary embolism or other vascular thrombosis. Vascular abnormalities were limited to ascending aortic dilatation at 4.1 cm. Continue with home dose of Eliquis. Recent cardiac angiogram within the last 3 months negative for obstructive CAD. (7) Hypothyroidism: Chronically on levothyroxine (8) Hypertension: Goal blood pressure less than 140/90 mmHg. History of adrenal insufficiency. Monitor blood pressures and restart antihypertensive accordingly as needed. 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 Oro. Most recent note from October 21, 2023 indicates she will not be receiving any further immunotherapy, has completed course of neoadjuvant therapy and that she has a residual nodule in the left breast for which she will need to undergo lumpectomy and sentinel axillary lymph node biopsy when feasible after addressing cardiovascular needs prior to other surgical intervention. Qualifiers: Breast location: nipple Estrogen receptor status: negative Patient sex: female Laterality: left Qualified Code(s): C50.012 - Malignant neoplasm of nipple and areola, left female breast; Z17.1 - Estrogen receptor negative status [ER-] (11) Interstitial lung disease: Secondary to effects from COVID-19 in 202. Also has known pulmonary nodule that has been stable over time. (12) Port-A-Cath in place: Right upper chest Plan VTE prophylaxis: eliquis GI Prophylaxis: Protonix daily Cardiac diet Code Status: Full Code. Daughter will be the DPOA. Plan for the day: Finished 3-day course of azithromycin. Continue with IV ceftriaxone to finish a 5-day course. Out of bed to chair. Continue with aggressive pulmonary toilet with incentive spirometry. Change from hydrocortisone to prednisone 10 mg oral daily. Monitor vitals. Will hold off on any further weaning for now. Patient was on prednisone 5 mg oral daily prior to admission. Wean oxygen supplementation keeping saturation over 90%. Continue with oral 20 mg Lasix. Fluid restriction. Discharge plan: Discussed in detail with the patient. Patient is frail with concerns for severe aortic stenosis requiring TAVR, recurrent episode of respiratory failure recently secondary to COVID-19 and now with parainfluenza. Patient would benefit with rehabitation and physical therapy. She is agreeable to transfer to SNF. Case management alerted. Transfer to [facility] once bed is available. 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
[2023-11-16] VITALS (12 sets, daily range): BP systolic 96–118; BP diastolic 60–69; PULSE 78–96; RESP 16–22; TEMP 36.5–36.8; O2SAT 94–98
[2023-11-16] MEDS: levothyroxine 100 mcg Tablet PO (06:15)
[2023-11-16] MEDS: levalbuterol 0.63 mg/3 mL Neb INHALATION ×3 (08:52→20:11)
[2023-11-16] MEDS: budesonide 0.5 mg/2 mL Neb INHALATION ×2 (08:52→20:11)
[2023-11-16] MEDS: ipratropium 0.5 mg/2.5 mL Neb INHALATION ×3 (08:52→20:11)
[2023-11-16] MEDS: potassium chloride ER 10 mEq Tablet PO (09:57)
[2023-11-16] MEDS: cefTRIAXone 1,000 mg SDV 1000 MG IVP (09:57)
[2023-11-16] MEDS: tolterodine 2 mg Tablet PO ×2 (09:57→17:12)
[2023-11-16] MEDS: fluconazole 100 mg Tablet PO (09:58)
[2023-11-16] MEDS: FUROsemide 20 mg Tablet PO (09:58)
[2023-11-16] MEDS: benzonatate 100 mg Capsule 200 MG PO ×3 (09:58→20:19)
[2023-11-16] MEDS: predniSONE 10 mg Tablet PO (09:58)
[2023-11-16] MEDS: loratadine 10 mg Tablet PO (09:58)
[2023-11-16] MEDS: fluoxetine 20 mg Capsule PO (09:58)
[2023-11-16] MEDS: pantoprazole DR 40 mg Tablet PO (09:58)
[2023-11-16] MEDS: fluticasone nasal spray 16gm Btl 1 SPRAY NASAL ×2 (09:59→17:12)
[2023-11-16] MEDS: apixaban 5 mg Tablet PO ×2 (10:16→20:19)
--- NOTE | 2023-11-16 13:02 | P.PN_ITS ---
Subjective 2 Subjective: No acute events overnight. Laying comfortably in bed. Worked with physical therapy though getting extremely short of breath on minimal exertion. Breathing better at rest otherwise. Vitals/I&O/Wt Last Vital Signs Temp 97.7 F 11/16/23 11:45 Pulse 93 11/16/23 11:45 Resp 17 11/16/23 11:45 BP 96/60 11/16/23 11:45 Pulse Ox 98 11/16/23 11:45 O2 Del Method Nasal Cannula 11/16/23 11:45 O2 Flow Rate 2 11/16/23 08:52 FiO2 40 11/12/23 01:53 11/15/23 11/16/23 11/16/23 22:59 06:59 14:59 Intake Total 120 / 600 240 / 240 Output Total 450 / 450 200 / 650 Balance -330 / 150 -200 / -50 240 / 240 Weight last 48 hrs Weight 107.229 kg Weight 107.229 kg Weight 106.594 kg Physical Exam 2 Narrative: General: No acute distress, AO x3, elderly, chronically sick appearing HEENT: PERRLA, pupils bilaterally equal and reactive Chest: Bilateral bronchial breath sounds all over lung field with occasional rhonchi and crackles mostly in the right lower zone CVS: S1-S2 regular, ejection systolic murmur at aortic region 2/6 with minimal radiation to carotids, no tachycardia, no gallops, no rubs Abdomen: Soft, nontender, no organomegaly, bowel sounds present Neuro: No focal deficits, no facial deformity, AO x3, power 5/5 in all limbs Urinary Catheter Management: Jones: Cath Placed During This Visit: no Reason for Continuing Indwelling Catheter: Accurate Measurement of Urinary Output in Critically Ill Patients Data 11/15/23 04:20 11/15/23 04:20 Micro: Microbiology 11/12/23 18:30 Gram Stain - Final Sputum - Expectorated Sputum Sputum Culture - Final A&P Assessment and plan (1) Shortness of breath: Most likely is a combination of COPD exacerbation in setting of parainfluenza infection, mild congestive heart failure in setting of severe aortic stenosis. Oxygen supplementation keeping saturation over 90%. Continue with prednisone 10 mg oral daily. Monitor hemodynamics. Blood pressure soft but stable today. Continue with ipratropium, Xopenex every 6 hours, Pulmicort to 0.5 twice daily. Aggressive pulmonary toilet with incentive spirometry. Out of bed to chair. Tessalon Perles 200 mg 3 times daily. Flonase twice daily. Less concerns for congestive heart failure for now. Continue with Lasix 20 mg oral daily. Fluid restriction up to 1500 cc. Strict input output charting, daily weights. Appreciate sputum culture, urine Legionella, bacterial antigen. Low concerns for bacterial pneumonia for now. Continue with IV ceftriaxone to finish a 5-day course. Last dose on 11/16. Finished dose of azithromycin for atypical coverage. (2) Viral respiratory illness: (3) Severe aortic valve stenosis: Known diagnosis. Currently under evaluation for TAVR placement and has met requirements per her understanding but awaits a date for surgical intervention. Was seen by Dr. Lance in [place]. (4) Urinary tract infection: Follow-up blood culture. Check urine culture. Already on ceftriaxone as above. (5) Adrenal insufficiency: Noted during last hospital stay in August of this year. Has continued to be on steroid since then, with most recent change on October 27 being decreasing to 10 mg daily for 1 week and then cutting down to 5 mg daily of prednisone. Continue with IV hydrocortisone as above. Wean accordingly. (6) Chronic anticoagulation: Chronically on Eliquis due to history of DVT and PE. Had recent CTA of the chest done at another facility on October 29 that did not demonstrate any evidence of pulmonary embolism or other vascular thrombosis. Vascular abnormalities were limited to ascending aortic dilatation at 4.1 cm. Continue with home dose of Eliquis. Recent cardiac angiogram within the last 3 months negative for obstructive CAD. (7) Hypothyroidism: Chronically on levothyroxine (8) Hypertension: Goal blood pressure less than 140/90 mmHg. History of adrenal insufficiency. Monitor blood pressures and restart antihypertensive accordingly as needed. 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 Oro. Most recent note from October 21, 2023 indicates she will not be receiving any further immunotherapy, has completed course of neoadjuvant therapy and that she has a residual nodule in the left breast for which she will need to undergo lumpectomy and sentinel axillary lymph node biopsy when feasible after addressing cardiovascular needs prior to other surgical intervention. Qualifiers: Breast location: nipple Estrogen receptor status: negative Patient sex: female Laterality: left Qualified Code(s): C50.012 - Malignant neoplasm of nipple and areola, left female breast; Z17.1 - Estrogen receptor negative status [ER-] (11) Interstitial lung disease: Secondary to effects from COVID-19 in 202. Also has known pulmonary nodule that has been stable over time. (12) Port-A-Cath in place: Right upper chest Plan VTE prophylaxis: eliquis GI Prophylaxis: Protonix daily Cardiac diet Code Status: Full Code. Daughter will be the DPOA. Discharge plan: Discussed in detail with the patient. Patient is frail with concerns for severe aortic stenosis requiring TAVR, recurrent episode of respiratory failure recently secondary to COVID-19 and now with parainfluenza. Patient would benefit with rehabitation and physical therapy. She is agreeable to transfer to SNF. Case management alerted. Attestations 2 Medical Necessity Statement*: Requires further hospitalization for management of hypoxic respiratory failure in setting of COPD exacerbation, parainfluenza infection in a patient with history of severe aortic stenosis being worked up for TAVR Diagnoses Shortness of breath R06.02 Viral respiratory illness J98.8; B97.89 Severe aortic valve stenosis I35.0 Urinary tract infection N39.0 Adrenal insufficiency E27.40 Chronic anticoagulation Z79.01 Hypothyroidism E03.9 Hypertension I10 Dyslipidemia E78.5 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, estrogen receptor negative C50.012; Z17.1 Breast location: nipple Estrogen receptor status: negative Patient sex: female Laterality: left Interstitial lung disease J84.9 Port-A-Cath in place Z95.828
--- NOTE | 2023-11-16 14:57 | PC.NURSE ---
Jones catheter removed at 1345. Patient tolerated procedure well.
[2023-11-17] VITALS (27 sets, daily range): BP systolic 99–119; BP diastolic 55–66; PULSE 85–96; RESP 12–36; TEMP 36.4–37; O2SAT 90–100
[2023-11-17] MEDS: ipratropium 0.5 mg/2.5 mL Neb INHALATION ×4 (02:55→19:36)
[2023-11-17] MEDS: levalbuterol 0.63 mg/3 mL Neb INHALATION ×4 (02:55→19:36)
[2023-11-17 04:32] LABS: Basophils % 0.2 %; Eosinophils # 0.1 10^3/uL (0.0-0.8); Eosinophils % 2.6 %; Hematocrit 29.5 % (36-47); Lymphocytes # 0.9 10^3/uL (0.8-4.8); Lymphocytes % 20.2 %; Mean Corpuscular HGB Conc 30.8 g/dL (30-55); Mean Corpuscular Hemoglobin 32.6 pg (27-33); Mean Corpuscular Volume 105.7 fl (85-98); Mean Platelet Volume 10.1 fL (7.4-10.4); Monocytes # 0.5 10^3/uL (0.2-0.9); Monocytes % 10.6 %; Neutrophils # 2.99 10^3/uL (1.8-7.7); Neutrophils % 64.9 %; Nucleated Red Blood Cells % 0 %; Platelet Count 155 10^3/cmm (157-399); Red Blood Count 2.79 10^6/uL (3.85-5.65); Red Cell Distribution Width 15.2 % (12.1-15.1); White Blood Count 4.61 10^3/uL (3.29-11.43)
[2023-11-17 04:52] LABS: Alanine Aminotransferase 13 U/L (0-33); Albumin Level 2.9 g/dL (3.5-5.2); Alkaline Phosphatase 56 U/L (35-105); Anion Gap 12.3 (5-19); Aspartate Amino Transferase 16 U/L (0-32); Blood Urea Nitrogen 13 mg/dL (8-23); Calcium 9.4 mg/dL (8.5-10.5); Carbon Dioxide 26 mmol/L (22-29); Chloride 106 mmol/L (98-107); Creatinine Clr Calc Pharmacy 66.0061; Globulin 2.5 g/dL (1.3-4.6); Glucose 90 mg/dL (65-115); Osmolality Calculated 290 mOsm/kg (285-295); Potassium 4.3 mmol/L (3.5-5.1); Sodium 140 mmol/L (136-145); Total Bilirubin 0.2 mg/dL (0.15-1.2); Total Protein 5.4 g/dL (6.6-8.7)
[2023-11-17] MEDS: levothyroxine 100 mcg Tablet PO (05:40)
[2023-11-17] MEDS: budesonide 0.5 mg/2 mL Neb INHALATION ×2 (07:16→19:36)
--- NOTE | 2023-11-17 07:59 | P.PN_ITS ---
Subjective 2 Subjective: Patient is feeling much better now. Still gets short of breath with exertion. Vitals/I&O/Wt Last Vital Signs Temp 97.8 F 11/17/23 04:00 Pulse 86 11/17/23 07:33 Resp 26 H 11/17/23 07:30 BP 106/66 11/17/23 07:30 Pulse Ox 98 11/17/23 07:30 O2 Del Method Nasal Cannula 11/17/23 07:30 O2 Flow Rate 2 11/17/23 07:18 FiO2 40 11/12/23 01:53 11/16/23 11/17/23 11/17/23 22:59 06:59 14:59 Intake Total 840 / 1440 Output Total 200 / 200 350 / 550 Balance 640 / 1240 -350 / 890 Weight last 48 hrs Weight 232 lb Weight 236 lb 6.4 oz Weight 236 lb 6.4 oz Physical Exam 2 Narrative: GENERAL: Patient is alert, awake and oriented x3. [] NECK: No jugular vein distension. [] HEENT: No cyanosis. No icterus. No pallor. [] HEART: Regular S1 and S2. Grade 3/6 systolic murmur LUNGS: Diminished air entry bilaterally CENTRAL NERVOUS SYSTEM: Grossly nonfocal. [] EXTREMITIES: Lower extremities with 1+ edema bilaterally Urinary Catheter Management: Jones: Cath Placed During This Visit: no Reason for Continuing Indwelling Catheter: Accurate Measurement of Urinary Output in Critically Ill Patients Data 11/17/23 03:55 11/17/23 03:55 Micro: Microbiology 11/11/23 17:02 Blood Culture - Final Blood NO GROWTH AFTER 5 DAYS 11/11/23 16:50 Blood Culture - Final Blood NO GROWTH AFTER 5 DAYS A&P Assessment and plan (1) Severe aortic valve stenosis: (2) Hypertension: (3) Dyslipidemia: (4) Pulmonary embolism: Qualifiers: Pulmonary embolism type: unspecified Chronicity: chronic Acute cor pulmonale presence: without acute cor pulmonale Qualified Code(s): I27.82 - Chronic pulmonary embolism (5) DVT (deep venous thrombosis): Qualifiers: DVT location: lower extremity Affected thrombotic vein of extremity: u nspecified lower extremity proximal vein Chronicity: chronic Laterality: b ilateral Qualified Code(s): I82.5Y3 - Chronic embolism and thrombosis of unspecified deep veins of proximal lower extremity, bilateral (6) Elevated troponin: (7) Shortness of breath: Plan Patient is doing well. Awaiting TAVR. Continue low dose lasix and eliquis Thank you for involving us with care of this patient. Please call with questions. Attestations 2 Medical Necessity Statement*: Care expected to cross 2 midnights. Coding Level of Care Code Acute Code for g Fwd Diagnoses Severe aortic valve stenosis I35.0 Hypertension I10 Dyslipidemia E78.5 Chronic pulmonary embolism without acute cor pulmonale, unspecified pulmonary embolism type I27.82 Pulmonary embolism type: unspecified Chronicity: chronic Acute cor pulmonale presence: without acute cor pulmonale Chronic deep vein thrombosis (DVT) of proximal vein of both lower extremities I82.5Y3 DVT location: lower extremity Affected thrombotic vein of extremity: unspecified lower extremity proximal vein Chronicity: chronic Laterality: bilateral Elevated troponin R79.89 Shortness of breath R06.02
[2023-11-17] MEDS: fluoxetine 20 mg Capsule PO (08:39)
[2023-11-17] MEDS: tolterodine 2 mg Tablet PO ×2 (08:39→17:44)
[2023-11-17] MEDS: apixaban 5 mg Tablet PO ×2 (08:39→20:07)
[2023-11-17] MEDS: pantoprazole DR 40 mg Tablet PO (08:39)
[2023-11-17] MEDS: benzonatate 100 mg Capsule 200 MG PO ×3 (08:39→20:06)
[2023-11-17] MEDS: FUROsemide 20 mg Tablet PO (08:39)
[2023-11-17] MEDS: fluconazole 100 mg Tablet PO (08:39)
[2023-11-17] MEDS: potassium chloride ER 10 mEq Tablet PO (08:39)
[2023-11-17] MEDS: loratadine 10 mg Tablet PO (08:40)
[2023-11-17] MEDS: fluticasone nasal spray 16gm Btl 1 SPRAY NASAL (08:40)
[2023-11-17] MEDS: predniSONE 10 mg Tablet PO (08:40)
--- NOTE | 2023-11-17 09:38 | PC.SOCIAL ---
IMM Update Pg. 2 of IMM updated. Initialed, dated, and timed. Copy provided at bedside.
[2023-11-17 18:48] LABS: SARS Covid-2 Antigen Negative (Negative)
--- NOTE | 2023-11-17 21:06 | P.PN_ITS ---
Vitals/I&O/Wt Last Vital Signs Temp 97.8 F 11/17/23 20:00 Pulse 91 11/17/23 20:00 Resp 25 H 11/17/23 20:00 BP 104/57 11/17/23 20:00 Pulse Ox 90 11/17/23 20:00 O2 Del Method Room Air 11/17/23 20:00 O2 Flow Rate 1 11/17/23 13:19 FiO2 40 11/12/23 01:53 11/17/23 11/17/23 11/17/23 06:59 14:59 22:59 Intake Total 720 / 720 120 / 840 Output Total 350 / 550 Balance -350 / 890 720 / 720 120 / 840 Weight last 48 hrs Weight 105.233 kg Weight 107.229 kg Weight 107.229 kg Physical Exam 2 Urinary Catheter Management: Jones: Cath Placed During This Visit: no Reason for Continuing Indwelling Catheter: Accurate Measurement of Urinary Output in Critically Ill Patients Data 11/17/23 03:55 11/17/23 03:55 Micro: Microbiology 11/11/23 17:02 Blood Culture - Final Blood NO GROWTH AFTER 5 DAYS 11/11/23 16:50 Blood Culture - Final Blood NO GROWTH AFTER 5 DAYS A&P Assessment and plan (1) Shortness of breath: Reviewed vitals, CBC, CMP, rapid COVID-19 antigen. She reports she is overall doing better but still having a cough and producing phlegm. She has been using flutter valve which helps her expectorate. Continue prednisone, budesonide, DuoNeb for COPD exacerbation. Ceftriaxone stopped. Discussed with case management, pending prior authorization to transition to rehabilitation at [facility]. Should be able to DC in the morning. Most likely is a combination of COPD exacerbation in setting of parainfluenza infection, mild congestive heart failure in setting of severe aortic stenosis. Oxygen supplementation keeping saturation over 90%. (2) Viral respiratory illness: (3) Severe aortic valve stenosis: Known diagnosis. Currently under evaluation for TAVR placement and has met requirements per her understanding but awaits a date for surgical intervention. Was seen by Dr. Lance in [place]. (4) Urinary tract infection: Reviewed urine culture, collected, completed antibiotic course. Reviewed blood culture, negative. Already on ceftriaxone as above. (5) Adrenal insufficiency: Noted during last hospital stay in August of this year. Has continued to be on steroid since then, with most recent change on October 27 being decreasing to 10 mg daily for 1 week and then cutting down to 5 mg daily of prednisone. (6) Chronic anticoagulation: Chronically on Eliquis due to history of DVT and PE. Had recent CTA of the chest done at another facility on October 29 that did not demonstrate any evidence of pulmonary embolism or other vascular thrombosis. Vascular abnormalities were limited to ascending aortic dilatation at 4.1 cm. Continue with home dose of Eliquis. Recent cardiac angiogram within the last 3 months negative for obstructive CAD. (7) Hypothyroidism: Chronically on levothyroxine (8) Hypertension: Goal blood pressure less than 140/90 mmHg. History of adrenal insufficiency. Monitor blood pressures and restart antihypertensive accordingly as needed. 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 Oro. Most recent note from October 21, 2023 indicates she will not be receiving any further immunotherapy, has completed course of neoadjuvant therapy and that she has a residual nodule in the left breast for which she will need to undergo lumpectomy and sentinel axillary lymph node biopsy when feasible after addressing cardiovascular needs prior to other surgical intervention. Qualifiers: Breast location: nipple Estrogen receptor status: negative Patient sex: female Laterality: left Qualified Code(s): C50.012 - Malignant neoplasm of nipple and areola, left female breast; Z17.1 - Estrogen receptor negative status [ER-] (11) Interstitial lung disease: Secondary to effects from COVID-19 in 2021. Also has known pulmonary nodule that has been stable over time. (12) Port-A-Cath in place: Right upper chest Plan VTE prophylaxis: eliquis GI Prophylaxis: Protonix daily Cardiac diet Code Status: Full Code. Daughter will be the DPOA. Attestations 2 Medical Necessity Statement*: Continue admission for treatment of COPD after adenovirus infection, post discharge planning and arrangements pending acceptance to SNF. and High MDM includes amount and/or complexity of data reviewed/ordered [ resulted lab(s)/test(s), ordered lab(s)/test(s) and other healthcare professional discussion] as documented Diagnoses Shortness of breath R06.02 Viral respiratory illness J98.8; B97.89 Severe aortic valve stenosis I35.0 Urinary tract infection N39.0 Adrenal insufficiency E27.40 Chronic anticoagulation Z79.01 Hypothyroidism E03.9 Hypertension I10 Dyslipidemia E78.5 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, estrogen receptor negative C50.012; Z17.1 Breast location: nipple Estrogen receptor status: negative Patient sex: female Laterality: left Interstitial lung disease J84.9 Port-A-Cath in place Z95.828
[2023-11-18] VITALS (34 sets, daily range): BP systolic 99–140; BP diastolic 55–87; PULSE 89–100; RESP 14–56; TEMP 36.6–36.7; O2SAT 84–98
[2023-11-18] MEDS: ipratropium 0.5 mg/2.5 mL Neb INHALATION ×3 (02:10→13:58)
[2023-11-18] MEDS: levalbuterol 0.63 mg/3 mL Neb INHALATION ×3 (02:10→13:58)
[2023-11-18] MEDS: levothyroxine 100 mcg Tablet PO (05:12)
[2023-11-18] MEDS: budesonide 0.5 mg/2 mL Neb INHALATION (07:33)
--- NOTE | 2023-11-18 07:57 | P.PN_ITS ---
Subjective 2 Subjective: Patient is doing well. no chest pain Vitals/I&O/Wt Last Vital Signs Temp 98.1 F 11/18/23 04:00 Pulse 93 11/18/23 07:35 Resp 20 H 11/18/23 07:35 BP 111/64 11/18/23 04:00 Pulse Ox 94 11/18/23 07:35 O2 Del Method Nasal Cannula 11/18/23 07:35 O2 Flow Rate 1 11/18/23 07:35 FiO2 40 11/12/23 01:53 11/17/23 11/18/23 11/18/23 22:59 06:59 14:59 Intake Total 320 / 1040 100 / 1140 Balance 320 / 1040 100 / 1140 Weight last 48 hrs Weight 232 lb Weight 232 lb Physical Exam 2 Narrative: GENERAL: Patient is alert, awake and oriented x3. [] NECK: No jugular vein distension. [] HEENT: No cyanosis. No icterus. No pallor. [] HEART: Regular S1 and S2. Grade 3/6 systolic murmur LUNGS: Diminished air entry bilaterally CENTRAL NERVOUS SYSTEM: Grossly nonfocal. [] EXTREMITIES: Lower extremities with 1+ edema bilaterally Urinary Catheter Management: Jones: Cath Placed During This Visit: no Reason for Continuing Indwelling Catheter: Accurate Measurement of Urinary Output in Critically Ill Patients Data 11/17/23 03:55 11/17/23 03:55 A&P Assessment and plan (1) Severe aortic valve stenosis: (2) Hypertension: (3) Dyslipidemia: (4) Pulmonary embolism: Qualifiers: Pulmonary embolism type: unspecified Chronicity: chronic Acute cor pulmonale presence: without acute cor pulmonale Qualified Code(s): I27.82 - Chronic pulmonary embolism (5) DVT (deep venous thrombosis): Qualifiers: DVT location: lower extremity Affected thrombotic vein of extremity: u nspecified lower extremity proximal vein Chronicity: chronic Laterality: b ilateral Qualified Code(s): I82.5Y3 - Chronic embolism and thrombosis of unspecified deep veins of proximal lower extremity, bilateral (6) Elevated troponin: (7) Shortness of breath: Plan Patient is stable. Continue anticoagulation. Thank you for involving us with care of this patient. Please call with questions. Attestations 2 Medical Necessity Statement*: Care expected to cross 2 midnights. 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
[2023-11-18] MEDS: FUROsemide 20 mg Tablet PO (08:53)
[2023-11-18] MEDS: predniSONE 10 mg Tablet PO (08:53)
[2023-11-18] MEDS: tolterodine 2 mg Tablet PO (08:53)
[2023-11-18] MEDS: fluoxetine 20 mg Capsule PO (08:53)
[2023-11-18] MEDS: benzonatate 100 mg Capsule 200 MG PO ×2 (08:53→15:23)
[2023-11-18] MEDS: apixaban 5 mg Tablet PO (08:53)
[2023-11-18] MEDS: fluconazole 100 mg Tablet PO (08:53)
[2023-11-18] MEDS: loratadine 10 mg Tablet PO (08:53)
[2023-11-18] MEDS: potassium chloride ER 10 mEq Tablet PO (08:54)
[2023-11-18] MEDS: pantoprazole DR 40 mg Tablet PO (08:54)
[2023-11-18] MEDS: fluticasone nasal spray 16gm Btl 1 SPRAY NASAL (08:54)
--- NOTE | 2023-11-18 09:02 | P.DS_ITS ---
Discharge Providers Date of Admission: 11/11/23 15:37 Date of Discharge: November 18, 2023 Attending Provider at Admission: Meg Francis MD Attending Provider at Discharge: Jamari Lazar Primary Care Provider: Sánchez Macario Diagnoses at Discharge Discharge Diagnosis (1) Severe aortic valve stenosis: Status: Chronic (2) Hypertension: Status: Chronic (3) Dyslipidemia: Status: Chronic (4) Pulmonary embolism: Status: Chronic Qualifiers: Pulmonary embolism type: unspecified Chronicity: chronic Acute cor pulmonale presence: without acute cor pulmonale Qualified Code(s): I27.82 - Chronic pulmonary embolism (5) DVT (deep venous thrombosis): Status: Chronic Qualifiers: DVT location: lower extremity Affected thrombotic vein of extremity: unspecified lower extremity proximal vein Chronicity: chronic Laterality: bilateral Qualified Code(s): I82.5Y3 - Chronic embolism and thrombosis of unspecified deep veins of proximal lower extremity, bilateral (6) Elevated troponin: Status: Acute (7) Shortness of breath: Status: Resolved Hospital Course Hospital Course Pleasant 83-year-old lady with severe arctic stenosis, undergoing evaluation for TAVR, diastolic heart failure, PE, DVT, adrenal insufficiency, was admitted in respiratory failure, found to be in the setting of parainfluenza infection with COPD exacerbation. On presentation in shock with adrenal insufficiency, was treated with IV hydrocortisone, received antibiotics in the setting of COPD exacerbation, required oxygen supplementation. Shock resolved with treatment and she was resumed on prednisone. Oxygenation gradually improved. She is down to intermittently room air and 1 L nasal cannula. Continue to wean down, target oxygen saturation 92%. Follow-up for resolution of COPD exacerbation after parainfluenza infection. With chronic prednisone she is also started on PPI. During hospitalization completed a course of antibiotics for urinary tract infection. Continue arrangements with regards to aortic valve. Follow-up ascending aortic dilation, last noted 4.1 cm on CTA in July. Continue follow-up regarding other chronic medical problems. Due to deconditioning she is going on to rehabilitation at SNF. Physical Exam Narrative: She is deconditioned, sitting up at the edge of the bed, working with physical therapy. She feels better overall and feels ready and eager to proceed to rehabilitation. Const: COMMON NORMALS: patient oriented x3 and alert GENERAL APPEARANCE: cooperative ORIENTATION/CONSCIOUSNESS: Yes awake HENMT: COMMON NORMALS: oropharynx normal Neck/C-Spine: COMMON NORMALS: no JVD Resp: COMMON NORMALS: normal respiratory effort and clear to auscultation bilaterally AUSCULTATION: clear to auscultation bilaterally Cardio: COMMON NORMALS: no JVD, regular rhythm, S1 normal heart sound present, S2 normal heart sound present and No murmurs present (Cardio) RHYTHM: regular rhythm HEART SOUNDS: S1 normal heart sound present and S2 normal heart sound present GI: COMMON NORMALS: Normal to inspection, nondistended, normoactive bowel sounds present, Soft to palpation and non-tender PALPATION: Yes Soft to palpation Extremity: COMMON NORMALS: no joint enlargement and no pedal edema Neuro: COMMON NORMALS: patient oriented x3 and moves all extremities SENSORIUM/ORIENTATION: Yes alert Skin: COMMON NORMALS: no rashes or lesions noted GENERAL SKIN EXAM: no rashes or lesions noted Urinary Catheter Management: Jones: Cath Placed During This Visit: no Reason for Continuing Indwelling Catheter: Accurate Measurement of Urinary Output in Critically Ill Patients Discharge Data Studies Completed and Pending Completed Studies During Hospitalization Category Date Time Status XR chest 1V portable [id number] Routine Exams 11/11/23 17:29 Completed Radiology Impressions Chest X-Ray 11/11/23 17:29 IMPRESSION: Hypoexpanded lungs without pleural effusion or edema. Laboratory Results WBC 4.61 10^3/uL (3.29-11.43) 11/17/23 03:55 RBC 2.79 10^6/uL (3.85-5.65) L 11/17/23 03:55 Hgb 9.10 g/dL (11.27-16.99) L 11/17/23 03:55 Hct 29.5 % (36-47) L 11/17/23 03:55 MCV 105.7 fl (85-98) H 11/17/23 03:55 MCH 32.6 pg (27-33) 11/17/23 03:55 MCHC 30.8 g/dL (30-55) 11/17/23 03:55 RDW 15.2 % (12.1-15.1) H 11/17/23 03:55 Plt Count 155 10^3/cmm (157-399) L 11/17/23 03:55 MPV 10.1 fL (7.4-10.4) 11/17/23 03:55 Neut % (Auto) 64.9 % 11/17/23 03:55 Lymph % (Auto) 20.2 % 11/17/23 03:55 [place] % (Auto) 10.6 % 11/17/23 03:55 Eos % (Auto) 2.6 % 11/17/23 03:55 Baso % (Auto) 0.2 % 11/17/23 03:55 Neut # (Auto) 2.99 10^3/uL (1.8-7.7) 11/17/23 03:55 Lymph # (Auto) 0.9 10^3/uL (0.8-4.8) 11/17/23 03:55 [place] # (Auto) 0.5 10^3/uL (0.2-0.9) 11/17/23 03:55 Eos # (Auto) 0.1 10^3/uL (0.0-0.8) 11/17/23 03:55 Baso # (Auto) 0.0 10^3/uL (0.0-0.1) 11/17/23 03:55 Nucleated RBC % (auto) 0 % 11/17/23 03:55 Nucleated RBCs # 0.0 /100WBC 11/17/23 03:55 PT 16.40 SECONDS (12.1-14.9) H 11/11/23 17:02 INR 1.28 (0.8-1.2) H 11/11/23 17:02 APTT 43.1 SECONDS (23.9-36.7) H 11/11/23 17:02 Specimen Type Arterial 11/12/23 04:20 Sample Site Brachial, right 11/12/23 04:20 ABG pH 7.43 (7.35-7.45) 11/12/23 04:20 ABG pCO2 36.6 mmHg (35-45) 11/12/23 04:20 ABG pO2 70.0 mmHg (80.0-100.0) L 11/12/23 04:20 ABG PO2/FiO2 Ratio 201 11/11/23 17:16 ABG HCO3 24.4 mmol/L (22-26) 11/12/23 04:20 ABG Base Excess 0.4 mmol/L (-2.0-2.0) 11/12/23 04:20 Maurice Test N/a 11/12/23 04:20 Hematocrit 44.7 % (37-47) 11/12/23 04:20 O2 Delivery Device Nc 11/12/23 04:20 O2 Liters/Min 5.0 % 11/12/23 04:20 FiO2 32.0 % 11/11/23 17:16 Engineering Production Worker ID [email or web address] 11/12/23 04:20 Sodium 140 mmol/L (136-145) 11/17/23 03:55 Potassium 4.3 mmol/L (3.5-5.1) 11/17/23 03:55 Chloride 106 mmol/L (98-107) 11/17/23 03:55 Carbon Dioxide 26 mmol/L (22-29) 11/17/23 03:55 Anion Gap 12.3 (5-19) 11/17/23 03:55 BUN 13 mg/dL (8-23) 11/17/23 03:55 Creatinine 0.7 mg/dL (0.5-0.9) 11/17/23 03:55 GFR Calculation Not Reportable 11/17/23 03:55 Glucose 90 mg/dL (65-115) 11/17/23 03:55 Calculated Osmolality 290 mOsm/kg (285-295) 11/17/23 03:55 Lactic Acid 0.9 mmol/L (0.5-2.2) 11/11/23 17:02 Calcium 9.4 mg/dL (8.5-10.5) 11/17/23 03:55 Phosphorus 3.7 mg/dL (2.5-4.5) 11/12/23 03:45 Magnesium 2.4 mg/dL (1.7-2.3) H 11/12/23 03:45 Total Bilirubin 0.2 mg/dL (0.15-1.2) 11/17/23 03:55 AST 16 U/L (0-32) 11/17/23 03:55 ALT 13 U/L (0-33) 11/17/23 03:55 Alkaline Phosphatase 56 U/L (35-105) 11/17/23 03:55 Troponin T Baseline 353 ng/L (0-10) H* 11/11/23 17:02 Total Protein 5.4 g/dL (6.6-8.7) L 11/17/23 03:55 Albumin 2.9 g/dL (3.5-5.2) L 11/17/23 03:55 Globulin 2.5 g/dL (1.3-4.6) 11/17/23 03:55 Procalcitonin 0.88 ng/mL (0-0.5) H 11/12/23 03:45 Coronavirus 229E (PCR) Not detected (NOT DETECT) 11/11/23 16:40 Parainfluenza 1 (PCR) Not detected (NOT DETECT) 11/11/23 19:36 Parainfluenza 2 (PCR) Not detected (NOT DETECT) 11/11/23 19:36 Parainfluenza 3 (PCR) Detected (NOT DETECT) A 11/11/23 19:36 Parainfluenza 4 (PCR) Not detected (NOT DETECT) 11/11/23 19:36 SARS-CoV-2 (PCR) Not detected (NOT DETECT) 11/11/23 16:40 SARS-CoV-2 Ag (Rapid) Negative (Negative) 11/17/23 16:00 Vitals Last Vital Signs Temp 97.8 F 11/18/23 08:00 Pulse 94 11/18/23 08:00 Resp 20 H 11/18/23 08:00 BP 126/68 11/18/23 08:00 Pulse Ox 94 11/18/23 08:00 O2 Del Method Nasal Cannula 11/18/23 08:00 O2 Flow Rate 1 11/18/23 07:35 FiO2 40 11/12/23 01:53 Discharge Plan Discharge Patient Disposition: Home Condition: Stable Prescriptions: New pantoprazole 40 mg Tablet,Delayed Release (Dr/Ec) 40 mg PO DAILY Qty: 30 0RF benzonatate 100 mg Capsule 200 mg PO TID Qty: 30 0RF Continued diphenhydramine HCl [Benadryl] 25 mg capsule 25 mg PO TID PRN (Reason: Itching) vitamin B complex [B Complex-Vitamin B12] Tablet 1 tab PO DAILY calcium carb,lactat-vitamin D3 200 mg calcium -250 unit tablet 1 tab PO QAM meclizine 25 mg tablet 25 mg PO TID PRN (Reason: Dizziness) multivitamin Tablet 1 tab PO DAILY tolterodine 4 mg capsule,extended release 24hr 4 mg PO DAILY fluoxetine [Prozac] 20 mg capsule 20 mg PO DAILY levothyroxine 100 mcg capsule 100 mcg PO DAILY red yeast rice 600 mg capsule 600 mg PO BID Rx Instructions: give with meal/snack potassium chloride 10 mEq capsule, extended release 10 meq PO DAILY Prolia 60 mg/mL syringe 60 mg SUBCUT Q6M cyanocobalamin (vitamin B-12) 2,500 mcg tablet 2,500 mcg PO DAILY vitamin E mixed 1,000 unit capsule 4,000 unit PO DAILY albuterol sulfate [Ventolin HFA] 90 mcg/actuation HFA aerosol inhaler 1 inh inhalation QID PRN (Reason: shortness of breath or wheezing) Qty: 8.5 3RF selenium 50 mcg tablet 50 mcg PO DAILY (DME) Nebulizer and accessory kit See Rx Instructions .Route .MEDSUPPLY Qty: 1 0RF Patient Comments: Patient states that they do not have the machine. Rx Instructions: As directed fluconazole 100 mg tablet 100 mg PO DAILY 5 Days Qty: 5 0RF (DME) custom inserts See Rx Instructions .Route .MEDSUPPLY Qty: 1 0RF Rx Instructions: As directed lidocaine-prilocaine 2.5-2.5 % cream 1 applic topical ONCE prednisone 10 mg tablet 10 mg PO DIRECTED Qty: 30 0RF Rx Instructions: take one tablet x 1 week then decrease to 1/2 tablet daily acetaminophen [Tylenol] 325 mg capsule 325 mg PO Q6H Qty: 14 0RF ondansetron 4 mg tablet,disintegrating 4 mg PO Q6H PRN (Reason: nausea and vomiting) Qty: 20 0RF diphenoxylate-atropine [Lomotil] 2.5-0.025 mg tablet 1 tab PO BID PRN (Reason: diarrhea) Qty: 10 0RF Eliquis 5 mg tablet 5 mg PO BID Qty: 60 0RF Colace 100 mg Capsule 100 mg PO BID lorazepam 1 mg tablet 0.5 - 1 mg PO Q6H PRN (Reason: Severe Nausea) Qty: 30 3RF Discharge Orders: Discharge Order (Routine); Ordered 11/18/23 Ordered By: Jamari Lazar Referrals: Sánchez Macario [Primary Care Provider] - 4-7 days Discharge Diet: Cardiac Activity Restrictions/Additional Instructions: No fish due to allergy. Continue albuterol as needed for shortness of breath or wheezing. Continue oxygen support 1 L by nasal cannula, wean off as tolerating. Target oxygen saturation 92%. Follow-up with your primary provider for reassessment of COPD exacerbation, parainfluenza virus. Continue prednisone for adrenal insufficiency as previously. You are also started on acid polina medication with Protonix. Avoid any NSAIDs. Continue follow-up for evaluation for aortic valve replacement. During the hospital stay also completed antibiotic course for urinary tract infection. Follow-up with your primary provider for reassessment of ascending aortic dilation at 4.1 cm. Follow-up with your primary doctor for continued optimization of other chronic medical problems. Discharge Attestations Time Spent in Discharge Care*: greater than 30 min Quality Metrics Clinical Quality Measures [ No reported AMI, CVA or VTE this stay] Coding Level of Care Code 42689 Total time (in minutes) for Discharge: 45 Diagnoses Severe aortic valve stenosis I35.0 Hypertension I10 Dyslipidemia E78.5 Chronic pulmonary embolism without acute cor pulmonale, unspecified pulmonary embolism type I27.82 Pulmonary embolism type: unspecified Chronicity: chronic Acute cor pulmonale presence: without acute cor pulmonale Chronic deep vein thrombosis (DVT) of proximal vein of both lower extremities I82.5Y3 DVT location: lower extremity Affected thrombotic vein of extremity: unspecified lower extremity proximal vein Chronicity: chronic Laterality: bilateral Elevated troponin R79.89 Shortness of breath R06.02
--- NOTE | 2023-11-18 16:32 | PC.NURSE ---
Discharge Note Patient discharged to [[facility] [place] via [w/c to [facility]] accompanied by [[facility] courier delivery driver]. Discharge instructions reviewed with patient and/or sales representative publications. Mobile pharmacy medications and/or prescriptions provided. Belongings/home medications returned.
== END 2023-11-18 16:35 | disposition skilled nursing facility (03) | DRG 190 ==
LOC: ICU 11-13 00:56 → CSU 11-14 11:40
PROVIDERS: Student in an Organized Health Care Education/Training Program; Admitting Provider Hospitalist; PCP Family Medicine; Visit Provider Internal Medicine
DX: J44.1 Chronic obstructive pulmonary disease with (acute) exacerbation (principal); R57.8 Other shock; N39.0 Urinary tract infection, site not specified; J84.9 Interstitial pulmonary disease, unspecified; E27.40 Unspecified adrenocortical insufficiency; B34.8 Other viral infections of unspecified site; I35.0 Nonrheumatic aortic (valve) stenosis; C50.912 Malignant neoplasm of unspecified site of left female breast; R00.0 Tachycardia, unspecified; R91.1 Solitary pulmonary nodule; E03.9 Hypothyroidism, unspecified; M17.12 Unilateral primary osteoarthritis, left knee; E78.5 Hyperlipidemia, unspecified; R79.89 Other specified abnormal findings of blood chemistry; E66.9 Obesity, unspecified; I10 Essential (primary) hypertension; M81.0 Age-related osteoporosis without current pathological fracture; Z17.0 Estrogen receptor positive status [ER+]; Z79.899 Other long term (current) drug therapy; Z79.01 Long term (current) use of anticoagulants; Z79.52 Long term (current) use of systemic steroids; Z68.37 Body mass index [BMI] 37.0-37.9, adult; Z11.52 Encounter for screening for COVID-19; Z92.21 Personal history of antineoplastic chemotherapy; Z86.16 Personal history of COVID-19; Z95.828 Presence of other vascular implants and grafts; Z87.440 Personal history of urinary (tract) infections; Z86.711 Personal history of pulmonary embolism; Z86.718 Personal history of other venous thrombosis and embolism
CPT/HCPCS: 36415; 36591; 36600; 71045; 80048; 80053; 82803; 83605; 83735; 84100; 84145; 84484; 85025; 85610; 85730; 86403; 87040; 87070; 87205; 87426; 87449; 87631; 87635; 93005; 94640; 94660; 94664; 96376; 97110; 97116; 97161; 97530; J0696; J1642; J1720; J2470; J7512; J7614; J7626; J7644; Q0144

== ENCOUNTER 2023-12-08 10:56 | Inpatient (IN) | payer MEDICARE, MEDICAID, SELFPAY ==
[2023-12-08] VITALS (11 sets, daily range): BP systolic 97–133; BP diastolic 62–83; PULSE 96–103; RESP 16–24; TEMP 36.6–36.8; O2SAT 91–98; BMI 38.2; BMI 36.0
--- NOTE | 2023-12-08 11:10 | ED_ITS ---
HPI - SOB/Dyspnea 2 General: Chief Complaint: Shortness of Breath/Dyspnea Stated Complaint: sob Time Seen by Provider: 12/08/23 10:58 Source: patient and EMS Mode of arrival: EMS Limitations: no limitations History of Present Illness: HPI Narrative: This patient was transported to our emergency department via EMS. She states she has had a cough and felt like she could breathe normally that began yesterday. She states it is very similar to prior prior symptoms she has had in the past that required short period of inpatient treatment. She states that her grandson and her daughter are sick with upper respiratory symptoms. She states that she has not had any known fevers. She denies any chest pain. She denies any leg swelling etc. She states again the symptoms are very reminiscent of prior similar symptoms. She has albuterol at home but does not have a nebulizer. She had COVID earlier this past spring. No recent travel. She there was some question by EMS about whether she was having some occultly enunciating her words and when asked about that she states that the only issue regarding that potential symptom is that she has a dry mouth and she cannot seem to talk when she takes a drink of water her speech is totally normal according to her. She denies any other focal symptoms. She has taken all her medications including her Eliquis faithfully. Prior history of DVT but denies any leg swelling recent injury etc. She is being followed by oncology for breast cancer. MD elicited complaint: shortness of breath and cough Pertinent past history: COPD Associated symptoms: Deny abdominal pain, chest pain, extremity pain, fever(s), nausea, palpitations or vomiting Related Data Home Medications Medication Instructions Recorded Confirmed calcium carb and lactate 200 1 tab PO QAM 12/28/19 12/08/23 mg-vitamin D3 6.25 mcg (250 unit) tablet diphenhydramine HCl 25 mg capsule 25 mg PO TID PRN Itching 12/28/19 12/08/23 (Benadryl) meclizine 25 mg tablet 25 mg PO TID PRN Dizziness 12/28/19 12/08/23 multivitamin 1 tab PO DAILY 12/28/19 12/08/23 potassium chloride 10 mEq 10 meq PO DAILY 12/28/19 12/08/23 capsule,extended release red yeast rice 600 mg capsule 600 mg PO BID 12/28/19 12/08/23 tolterodine 4 mg capsule,extended 4 mg PO DAILY 12/28/19 12/08/23 release 24 hr vitamin B complex (B 1 tab PO DAILY 12/28/19 12/08/23 Complex-Vitamin B12 tablet) denosumab 60 mg/mL subcutaneous 60 mg SUBCUT Q6M 06/26/20 12/08/23 syringe (Prolia) cyanocobalamin (vitamin B-12) 2,500 mcg PO DAILY 07/19/21 12/08/23 2,500 mcg tablet vitamin E mixed 1,000 unit capsule 4,000 unit PO DAILY 07/19/21 12/08/23 selenium 50 mcg tablet 50 mcg PO DAILY 02/05/23 12/08/23 lidocaine-prilocaine 2.5 %-2.5 % 1 applic topical DAILY PRN 07/23/23 12/08/23 topical cream inflammation and pain docusate sodium 100 mg capsule 100 mg PO BID 11/12/23 12/08/23 (Colace) acetaminophen 325 mg capsule 325 mg PO Q6H PRN Pain 12/08/23 12/08/23 (Tylenol) benzonatate 100 mg capsule 200 mg PO TID PRN Cough 12/08/23 12/08/23 fluoxetine 40 mg capsule 40 mg PO DAILY 12/08/23 12/08/23 levothyroxine 112 mcg tablet 112 mcg PO DAILY 12/08/23 12/08/23 lorazepam 0.5 mg tablet 0.5 mg PO DAILY 12/08/23 12/08/23 Previous Rx's Medication Instructions Recorded Nebulizer and accessory kit #1 ea 02/05/23 custom inserts #1 ea 08/06/23 diphenoxylate-atropine 2.5 1 tab PO BID PRN diarrhea #10 tabs 08/30/23 mg-0.025 mg tablet (Lomotil) ondansetron 4 mg disintegrating 4 mg PO Q6H PRN nausea and 08/30/23 tablet vomiting #20 tabs apixaban 5 mg tablet (Eliquis) 5 mg PO BID #60 tabs 09/11/23 prednisone 10 mg tablet 10 mg PO DIRECTED #30 tabs 10/27/23 pantoprazole 40 mg tablet,delayed 40 mg PO DAILY #30 tabs 11/18/23 release Allergies Allergy/AdvReac Type Severity Reaction Status Date / Time tetanus toxoid, adsorbed Allergy Severe unknown Verified 10/31/23 11:54 ciprofloxacin [From Cipro] Allergy Unknown ADR-Vomitin Verified 10/31/23 11:54 g erythromycin base Allergy Unknown ADR-Vomitin Verified 10/31/23 11:54 g gabapentin [From Neurontin] Allergy Unknown unknown Verified 10/31/23 11:54 hydrocodone [From Vicodin] Allergy Unknown unknown Verified 10/31/23 11:54 Influenza Virus Vaccines Allergy Unknown unknown Verified 10/31/23 11:54 tramadol [From Ultram] Allergy Unknown unknown Verified 10/31/23 11:54 aspirin Allergy stomach Verified 10/31/23 11:54 pain, unbearable egg Allergy unknown Verified 10/31/23 11:54 Fish Containing Products Allergy ALGY-Rash Verified 11/14/23 17:26 NSAIDS (Non-Steroidal Allergy heartburn, Verified 10/31/23 11:54 Anti-Inflamma stomach pain Tetanus Vaccines and Toxoid Allergy unknown Verified 10/31/23 11:54 adhesive AdvReac Unknown unknown Verified 10/31/23 11:54 Review of Systems 2 Const: Denies: fever(s) or chills Eyes: Denies: change in vision ENMT: Denies: throat pain, odynophagia, nasal discharge or nasal congestion Card: Denies: chest pain or palpitations Resp: Reports: dyspnea, non-productive cough and wheezing GI: Denies: abdominal pain, nausea, vomiting or diarrhea : Denies: flank pain, difficulty voiding, dysuria or urinary frequency Musc: Denies: neck pain, back pain, extremity pain or extremity swelling Skin/Breast: Denies: rash Neuro: Denies: headache(s), numbness in extremities or weakness in extremities Psych: Denies: anxiety or depression PFSH ED 2 PFSH: Medical History Hypothyroidism COVID-2021 History of echocardiogram 06/2023 EF 60%, Grade I/IV diastolic dysfunction, severe AV stenosis 0.99, mean gradient 40.2 mmHg, peak velocity 4.19 ms 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 Primary osteoarthritis of left knee Iron deficiency anemia Dyslipidemia Port-A-Cath in place placed 12/2022 Adrenal insufficiency hospital stay 08/2023 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 History of recurrent UTI (urinary tract infection) Pulmonary nodules Interstitial lung disease Asthma Breast cancer Hydronephrosis of right kidney Osteoporosis Arthritis Aortic stenosis Hypertension DVT (deep venous thrombosis) Pulmonary embolism Obesity Surgical History History of cardiac catheterization 07/2023 no obstructive disease Hx of tubal ligation Hx of cystoscopy Hx of colonoscopy Age 65 Hx of cholecystectomy H/O: hysterectomy Hx of cataract surgery S/P tonsillectomy Family History Father , AT 92 Congestive heart failure (CHF) Mother , AT 100 of unknown cause Other CAD (coronary artery disease) Cancer Diabetes Hyperlipidemia Hypertension Stroke Denies family history of Psychiatric illness Chronic kidney disease (CKD) Suicide Family history of premature coronary artery disease Lung disease Social History Smoking and tobacco/nicotine status: never used tobacco/nicotine Alcohol intake: never Substance/Drug Use: never Marital status: / Current occupational status: retired and disabled Physical Exam 2 Narrative: EXAM NARRATIVE: The patient is alert makes good eye contact. Her speech is fluent and intelligible. Has episodes of coughing during our conversation Const: COMMON NORMALS: no acute distress and alert GENERAL APPEARANCE: c ooperative and comfortable NUTRITIONAL APPEARANCE: overweight HENMT: COMMON NORMALS: atraumatic, Normal nasal mucous membranes and turbinates present and oropharynx normal (Thickened mucus which is clear) H EAD & SCALP: atraumatic NOSE: Normal nasal mucous membranes and turbinates present Eye: COMMON NORMALS: Equal, round and reactive pupils present, EOMs intact bilaterally and conjunctivae normal CONJUNCTIVA: Yes conjunctivae normal P UPIL: Yes Equal, round and reactive pupils present Neck/C-Spine: COMMON NORMALS: full ROM, no lymphadenopathy and supple Chest: COMMONS NORMALS: normal inspection of the chest Resp: COMMON NORMALS: normal respiratory effort AUSCULTATION: crackles, rhonchi and diminished lung sounds (At bases) Cardio: COMMON NORMALS: regular rate and regular rhythm RATE: regular rate RHYTHM: regular rhythm HEART SOUNDS: Murmur heart sound present systolic GI: COMMON NORMALS: Normal to inspection, nondistended, normoactive bowel sounds present and Soft to palpation PALPATION: Yes Soft to palpation : COMMON NORMALS: Yes no CVA tenderness BLADDER/KIDNEY EXAM: Yes no CVA tenderness Back/Pelvis: COMMON NORMALS: no CVA tenderness, thoracic and lumbar spine normal to inspection, no thoracic nor lumbar tenderness and thoraco-lumbar ROM normal Extremity: COMMON NORMALS: normal to inspection, full ROM, capillary refill normal, no calf tenderness and no pedal edema Neuro: GLORIA COMA SCALE: document GCS findings COMMON NORMALS: moves all extremities, no focal motor deficits and no sensory deficits noted S ENSORIUM/ORIENTATION: Yes alert Psych: COMMON NORMALS: mental status grossly normal Skin: COMMON NORMALS: no rashes or lesions noted, no wounds and turgor normal GENERAL SKIN EXAM: no rashes or lesions noted and turgor normal Course 2 Reevaluation(s): Reevaluation #1: Patient states nebulizer improved her breathing. Reauscultation reveals residual bilateral crackles particularly in the lower lung lay. No audible wheezes at this time. Pulse oximetry at 0.5 L is dipping down no high 80s therefore turned back up to 1 L/min and she stays in the 95% range with a good waveform. CTPA is reassuring and that there is no evidence of PE of acute nature or other acute changes although she does have some groundglass appearance which may be residual from her most recent infection or may be from post infiltrative process.Plan will be to give an additional DuoNeb treatment and reassess her stability for disposition Time: 14:04 Reevaluation #2: Continue to be oxygen requiring after 2 albuterol treatments. Chest x-ray is suggestive of what appears to be infiltrative process combined with her current clinical picture suggest COPD exacerbation perhaps with superimposed pneumonia although she is afebrile and does not have a significant leukocytosis. Time: 14:54 Consultations: Consultation #1: Discussed with Dr. Mcqueen who agreed to admit Time: 15:37 Vital Signs: Vital signs: Vital Signs Temperature 98.2 F 12/08/23 10:58 Pulse Rate 99 12/08/23 14:23 Respiratory Rate 16 12/08/23 14:16 Blood Pressure 120/75 12/08/23 12:06 Pulse Oximetry 97 12/08/23 14:16 Oxygen Delivery Me thod Nasal Cannula 12/08/23 14:16 Oxygen Flow Rate 1.5 12/08/23 14:16 MDM - SOB/Dyspnea Medical Decision Making This patient presented to the Emergency Department as noted in HPI. She has a history of a recent admission for similar symptoms. 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 She also apparently has a history of mild COPD that is not usually oxygen requiring. On presentation she was noted to be in the mid 90s on 2 L of nasal cannula oxygen. Her chest examination is remarkable for adventitious sounds bilaterally. Workup ensued to ensure no evidence of ACS, CHF, pneumonia, thromboembolic event or other potential etiologies of her presentation. Her D-dimer on DOAC's with a normal renal function was elevated so therefore CT PA was obtained which did not reveal any evidence of PE but did have some mild groundglass appearance notable. She had no evidence of leukocytosis, troponin elevation, BNP elevation dynamic EKG changes etc. Despite beta agonist she still remained oxygen dependent so therefore will be placed in admission for further beta agonist treatment, steroid treatment, discharge planning etc. Medical Records I reviewed the patient's medical records. Recent hospitalization in October for similar symptoms Lab Data I reviewed the patient's lab results. 12/08/23 11:48 12/08/23 11:48 Labs/Radiology: Radiology Impressions Chest X-Ray 12/08/23 11:19 IMPRESSION: No acute cardiopulmonary process. Chest CTA 12/08/23 12:46 IMPRESSION: 1. Thin intraluminal septation noted in the proximal right lower lobe pulmonary artery may represent minimal residual evidence of chronic pulmonary embolus. No acute pulmonary embolus detected. 2. Peribronchial thickening noted in the right infrahilar area with mild adjacent ground-glass opacity and nodularity may represent pneumonia and small areas mucous plugging. 3. 6 mm and smaller pulmonary nodules most of which appear unchanged from prior exam and have been stable. However, 4 mm pleural-based nodule right upper lobe was not seen on most recent prior exam but most likely represents an intrapulmonary lymph node. For patients at low risk (minimal or absent history of smoking and of other known risk factors), no routine follow-up is indicated. For patients at high risk (history of smoking or of other known risk factors), consider optional CT Chest at 12 months. (Reference: Ainsley) 4. Trace bibasilar atelectasis or scar. 5. Mild coronary arterial calcification, indicating the presence of coronary artery disease. If the patient has associated symptoms recommend management as per chest pain guidelines. If the patient is asymptomatic consider reviewing modifiable cardiovascular risk factors and managing as per guidelines for primary prevention. REFERENCES: Ainsley Anne et al. Guidelines for Management of Incidental Pulmonary Nodules Detected on CT Images: From the Fleischner Society 2017. Radiology. 2017;284(1):228-243. Laboratory Results WBC 7.19 10^3/uL (3.29-11.43) 12/08/23 11:48 RBC 3.28 10^6/uL (3.85-5.65) L 12/08/23 11:48 Hgb 10.80 g/dL (11.27-16.99) L 12/08/23 11:48 Hct 33.9 % (36-47) L 12/08/23 11:48 MCV 103.4 fl (85-98) H 12/08/23 11:48 MCH 32.9 pg (27-33) 12/08/23 11:48 MCHC 31.9 g/dL (30-55) 12/08/23 11:48 RDW 14.7 % (12.1-15.1) 12/08/23 11:48 Plt Count 185 10^3/cmm (157-399) 12/08/23 11:48 MPV 9.7 fL (7.4-10.4) 12/08/23 11:48 Neut % (Auto) 72.2 % 12/08/23 11:48 Lymph % (Auto) 12.5 % 12/08/23 11:48 Mccracken % (Auto) 10.2 % 12/08/23 11:48 Eos % (Auto) 4.2 % 12/08/23 11:48 Baso % (Auto) 0.6 % 12/08/23 11:48 Neut # (Auto) 5.20 10^3/uL (1.8-7.7) 12/08/23 11:48 Lymph # (Auto) 0.9 10^3/uL (0.8-4.8) 12/08/23 11:48 Mccracken # (Auto) 0.7 10^3/uL (0.2-0.9) 12/08/23 11:48 Eos # (Auto) 0.3 10^3/uL (0.0-0.8) 12/08/23 11:48 Baso # (Auto) 0.0 10^3/uL (0.0-0.1) 12/08/23 11:48 Nucleated RBC % (auto) 0 % 12/08/23 11:48 Nucleated RBCs # 0.0 /100WBC 12/08/23 11:48 D-Dimer 1.91 ug/mLFEU (0-0.59) H 12/08/23 11:48 Sodium 136 mmol/L (136-145) 12/08/23 11:48 Potassium 4.1 mmol/L (3.5-5.1) 12/08/23 11:48 Chloride 99 mmol/L (98-107) 12/08/23 11:48 Carbon Dioxide 23 mmol/L (22-29) 12/08/23 11:48 Anion Gap 18.1 (5-19) 12/08/23 11:48 BUN 17 mg/dL (8-23) 12/08/23 11:48 Creatinine 0.7 mg/dL (0.5-0.9) 12/08/23 11:48 GFR Calculation Not Reportable 12/08/23 11:48 Glucose 109 mg/dL (65-115) 12/08/23 11:48 Calculated Osmolality 284 mOsm/kg (285-295) L 12/08/23 11:48 Calcium 9.5 mg/dL (8.5-10.5) 12/08/23 11:48 Total Bilirubin 0.4 mg/dL (0.15-1.2) 12/08/23 11:48 AST 26 U/L (0-32) 12/08/23 11:48 ALT 24 U/L (0-33) 12/08/23 11:48 Alkaline Phosphatase 72 U/L (35-105) 12/08/23 11:48 Troponin T Baseline 32 ng/L (0-10) H 12/08/23 11:48 Troponin T 120 Minute 29.64 ng/L (0-10) H 12/08/23 13:42 Delta Troponin T -2.36 ABS# (0-10) L 12/08/23 13:42 NT-Pro-B Natriuret Pep 436 pg/mL (0-450) 12/08/23 11:48 Total Protein 5.6 g/dL (6.6-8.7) L 12/08/23 11:48 Albumin 3.4 g/dL (3.5-5.2) L 12/08/23 11:48 Globulin 2.2 g/dL (1.3-4.6) 12/08/23 11:48 SARS-CoV-2 Ag (Rapid) negative (Negative) 12/08/23 12:00 All radiology interpretation(s) finalized by discharge EKG Data EKG 1: I personally reviewed and interpreted this EKG as follows: Interpretation: Contemporaneous review of resting EKG reveals ventricular rate of 95 bpm with normal AL interval, normal QRS duration, normal corrected QT interval. Normal axis. No acute ST-T wave changes suggestive of ischemia noted at this time. EKG 2: I personally reviewed and interpreted this EKG as follows: Interpretation: Review of repeat EKG this visit reveals ventricular rate of 96 bpm. Normal AL interval, QRS duration, corrected QT interval. Normal axis. Nonspecific ST-T wave changes noted in V2 unchanged from prior tracing. No other acute or dynamic changes Discharge Plan Discharge Patient Disposition: Placed in Observation Clinical Impression: COPD exacerbation, Breast CA Condition: Stable Prescriptions: No Action diphenhydramine HCl [Benadryl] 25 mg capsule 25 mg PO TID PRN (Reason: Itching) vitamin B complex [B Complex-Vitamin B12] Tablet 1 tab PO DAILY calcium carb,lactat-vitamin D3 200 mg calcium -250 unit tablet 1 tab PO QAM meclizine 25 mg tablet 25 mg PO TID PRN (Reason: Dizziness) multivitamin Tablet 1 tab PO DAILY tolterodine 4 mg capsule,extended release 24hr 4 mg PO DAILY red yeast rice 600 mg capsule 600 mg PO BID Rx Instructions: give with meal/snack potassium chloride 10 mEq capsule, extended release 10 meq PO DAILY Prolia 60 mg/mL syringe 60 mg SUBCUT Q6M cyanocobalamin (vitamin B-12) 2,500 mcg tablet 2,500 mcg PO DAILY vitamin E mixed 1,000 unit capsule 4,000 unit PO DAILY selenium 50 mcg tablet 50 mcg PO DAILY (DME) Nebulizer and accessory kit See Rx Instructions .Route .MEDSUPPLY Qty: 1 0RF Patient Comments: Patient states that they do not have the machine. Rx Instructions: As directed (DME) custom inserts See Rx Instructions .Route .MEDSUPPLY Qty: 1 0RF Rx Instructions: As directed lidocaine-prilocaine 2.5-2.5 % cream 1 applic topical DAILY PRN (Reason: inflammation and pain) prednisone 10 mg tablet 10 mg PO DIRECTED Qty: 30 0RF Rx Instructions: take one tablet x 1 week then decrease to 1/2 tablet daily ondansetron 4 mg tablet,disintegrating 4 mg PO Q6H PRN (Reason: nausea and vomiting) Qty: 20 0RF diphenoxylate-atropine [Lomotil] 2.5-0.025 mg tablet 1 tab PO BID PRN (Reason: diarrhea) Qty: 10 0RF Eliquis 5 mg tablet 5 mg PO BID Qty: 60 0RF docusate sodium [Colace] 100 mg Capsule 100 mg PO BID pantoprazole 40 mg Tablet,Delayed Release (Dr/Ec) 40 mg PO DAILY Qty: 30 0RF fluoxetine 40 mg capsule 40 mg PO DAILY lorazepam 0.5 mg tablet 0.5 mg PO DAILY levothyroxine 112 mcg tablet 112 mcg PO DAILY benzonatate 100 mg capsule 200 mg PO TID PRN (Reason: Cough) Tylenol 325 mg capsule 325 mg PO Q6H PRN (Reason: Pain) Referrals: Sánchez Macario [Primary Care Provider] - Coding Level of Care Code ED Rivet Sorter for Malu Cooper
--- NOTE | 2023-12-08 11:19 | XRR_ITS ---
PROCEDURE INFORMATION: Exam: XR Chest Exam date and time: 12/08/2023 11:29 AM Age: 83 years old Clinical indication: Cough and shortness of breath TECHNIQUE: Imaging protocol: Radiologic exam of the chest. Views: 1 view. Total images: 1256 COMPARISON: CR (CHEST, ) 11/11/2023 5:43 PM FINDINGS: Tubes, catheters and devices: A right infusion port is present. Lungs: Unremarkable. No consolidation. Pleural spaces: Unremarkable. No pleural effusion. No pneumothorax. Heart/Mediastinum: Heart size is stable when compared to the prior exam. Vasculature: Moderate atherosclerotic disease burden is evident. Bones/joints: Diffuse osteopenia noted. XR/XR chest 1V portable [id number] IMPRESSION: No acute cardiopulmonary process.
[2023-12-08] MEDS: ipratropium-albuterol 3 mL Neb INHALATION ×3 (11:35→20:33)
[2023-12-08] MEDS: sodium chloride 0.9% 500 ML IV (11:53)
--- NOTE | 2023-12-08 12:00 | ECG_ITS ---
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 Measurements Intervals [place] Rate: 95 P: 39 IL: 150 QRS: -2 QRSD: 88 T: 55 QT: 370 QTc: 467 Interpretive Statements SINUS RHYTHM LOW QRS VOLTAGE IN PRECORDIAL LEADS [QRS DEFLECTION < 1.0 mV IN CHEST LEADS] MINIMAL VOLTAGE CRITERIA FOR LVH, CONSIDER NORMAL VARIANT [MEETS CRITERIA IN ONE OF: R(aVL), S(V1), R(V5), R(V5/V6)+S(V1)] Compared to ECG 11/11/2023 17:19:57 Sinus tachycardia no longer present Electronically Signed On 12-08-2023 12:03:06 CDT by Shabbir Momin M.D. [id number]
[2023-12-08 12:12] LABS: Basophils % 0.6 %; Eosinophils # 0.3 10^3/uL (0.0-0.8); Eosinophils % 4.2 %; Hematocrit 33.9 % (36-47); Lymphocytes # 0.9 10^3/uL (0.8-4.8); Lymphocytes % 12.5 %; Mean Corpuscular HGB Conc 31.9 g/dL (30-55); Mean Corpuscular Hemoglobin 32.9 pg (27-33); Mean Corpuscular Volume 103.4 fl (85-98); Mean Platelet Volume 9.7 fL (7.4-10.4); Monocytes # 0.7 10^3/uL (0.2-0.9); Monocytes % 10.2 %; Neutrophils % 72.2 %; Nucleated Red Blood Cells % 0 %; Platelet Count 185 10^3/cmm (157-399); Red Blood Count 3.28 10^6/uL (3.85-5.65); Red Cell Distribution Width 14.7 % (12.1-15.1); White Blood Count 7.19 10^3/uL (3.29-11.43)
[2023-12-08 12:23] LABS: SARS Covid-2 Antigen negative (Negative)
[2023-12-08 12:30] LABS: D Dimer 1.91 ug/mLFEU (0-0.59)
[2023-12-08 12:31] LABS: Troponin(5th) Baseline 32 ng/L (0-10)
[2023-12-08 12:42] LABS: Alanine Aminotransferase 24 U/L (0-33); Albumin Level 3.4 g/dL (3.5-5.2); Alkaline Phosphatase 72 U/L (35-105); Anion Gap 18.1 (5-19); Aspartate Amino Transferase 26 U/L (0-32); Blood Urea Nitrogen 17 mg/dL (8-23); Calcium 9.5 mg/dL (8.5-10.5); Carbon Dioxide 23 mmol/L (22-29); Chloride 99 mmol/L (98-107); Creatinine Clr Calc Pharmacy 66.0976; Globulin 2.2 g/dL (1.3-4.6); Glucose 109 mg/dL (65-115); NT Pro B Type Natriuretic Pept 436 pg/mL (0-450); Osmolality Calculated 284 mOsm/kg (285-295); Potassium 4.1 mmol/L (3.5-5.1); Sodium 136 mmol/L (136-145); Total Bilirubin 0.4 mg/dL (0.15-1.2); Total Protein 5.6 g/dL (6.6-8.7)
--- NOTE | 2023-12-08 12:46 | CTR_ITS ---
PROCEDURE INFORMATION: Exam: CTA Chest With Contrast Exam date and time: 12/08/2023 12:59 PM Age: 83 years old Clinical indication: Shortness of breath; Additional info: History of pe and elevated dimer with SOB TECHNIQUE: Imaging protocol: Computed tomographic angiography of the chest with contrast. Exam focused on the arteries. 3D rendering (Not supervised by radiologist): MIP and/or 3D reconstructed images were created by the technologist. Total images: 912 Contrast material: [id number]; Contrast volume: 55 ml; Contrast route: INTRAVENOUS (IV); COMPARISON: CT angio chest PE protcl [id number] 08/06/2023 6:22 PM RADIATION DOSE METRICS: Total DLP (mGy-cm): 416 FINDINGS: Tubes, catheters and devices: A right infusion port is present. Pulmonary arteries: Thin intraluminal septation noted in the proximal right lower lobe pulmonary artery may represent minimal residual evidence of chronic pulmonary embolus. No acute pulmonary embolus detected. Atherosclerotic burden: Mild atherosclerotic disease burden is evident. Aorta: Unremarkable. No aortic aneurysm. No aortic dissection. Lungs: Peribronchial thickening noted in the right infrahilar area with mild adjacent ground-glass opacity and nodularity may represent pneumonia and small areas mucous plugging. 6 mm and 3 mm pulmonary nodules laterally within the right lower lobe series 6, image 301 unchanged. 4 mm pleural-based nodule anteriorly in the right upper lobe series 6, image 208 most likely represents an intrapulmonary lymph node but was not seen on prior exam. 6 mm pleural-based nodule medially within the lingula series 6, image 259 unchanged. Trace bibasilar atelectasis or scar. Pleural spaces: Unremarkable. No pneumothorax. No pleural effusion. Heart: Aortic valve replacement. Coronary arteries: Mild coronary arterial calcification, indicating the presence of coronary artery disease. Lymph nodes: See Lungs finding. Gallbladder and biliary ducts: Prior cholecystectomy noted. Bones/joints: Unremarkable. No acute fracture. Soft tissues: Unremarkable. CT/CT angio chest PE protcl [id number] IMPRESSION: 1. Thin intraluminal septation noted in the proximal right lower lobe pulmonary artery may represent minimal residual evidence of chronic pulmonary embolus. No acute pulmonary embolus detected. 2. Peribronchial thickening noted in the right infrahilar area with mild adjacent ground-glass opacity and nodularity may represent pneumonia and small areas mucous plugging. 3. 6 mm and smaller pulmonary nodules most of which appear unchanged from prior exam and have been stable. However, 4 mm pleural-based nodule right upper lobe was not seen on most recent prior exam but most likely represents an intrapulmonary lymph node. For patients at low risk (minimal or absent history of smoking and of other known risk factors), no routine follow-up is indicated. For patients at high risk (history of smoking or of other known risk factors), consider optional CT Chest at 12 months. (Reference: Ainsley) 4. Trace bibasilar atelectasis or scar. 5. Mild coronary arterial calcification, indicating the presence of coronary artery disease. If the patient has associated symptoms recommend management as per chest pain guidelines. If the patient is asymptomatic consider reviewing modifiable cardiovascular risk factors and managing as per guidelines for primary prevention. REFERENCES: Ainsley Anne, et al. Guidelines for Management of Incidental Pulmonary Nodules Detected on CT Images: From the Fleischner Society 2017. Radiology. 2017;284(1):228-243.
[2023-12-08] MEDS: iohexol 350 mg/mL 500 mL Btl (per mL) IV (13:02)
--- NOTE | 2023-12-08 13:20 | ECG_ITS ---
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 Measurements Intervals [place] Rate: 96 P: 35 ND: 152 QRS: -7 QRSD: 94 T: 32 QT: 382 QTc: 483 Interpretive Statements SINUS RHYTHM LOW QRS VOLTAGE IN PRECORDIAL LEADS [QRS DEFLECTION < 1.0 mV IN CHEST LEADS] MINIMAL VOLTAGE CRITERIA FOR LVH, CONSIDER NORMAL VARIANT [MEETS CRITERIA IN ONE OF: R(aVL), S(V1), R(V5), R(V5/V6)+S(V1)] Compared to ECG 12/08/2023 12:00:10 No significant changes Electronically Signed On 12-08-2023 14:09:51 CDT by Shabbir Momin M.D. [id number]
[2023-12-08 14:02] LABS: Troponin 5 2HR 29.64 ng/L (0-10)
[2023-12-08 14:10] LABS: Troponin 5 2HR Delta -2.36 ABS# (0-10)
[2023-12-08] MEDS: methylPREDNISolone sod succ 125 mg/2 mL INJ IVP (16:09)
--- NOTE | 2023-12-08 17:09 | PM.HP ---
Providers/Chief Complaint Admitting Physician: Weston Nagel MD Primary Care Provider: Sánchez Macario Chief Complaint: sob History of Present Illness Janet Calvillo is a 83 year old female with past medical history of severe aortic stenosis, undergoing evaluation for TAVR in [place], invasive ductal carcinoma of left breast, diastolic heart failure, adrenal insufficiency on chronic steroids, recent admission for COVID-19 and parainfluenza infection with last discharge on 11/17 to [facility] when she was treated for hypoxic respiratory failure and septic shock secondary to parainfluenza. As per the patient she was discharged from the [place] [facility] after 2 weeks and 3 days after reaching back home which was possibly 2 days ago she started feeling weak again. As per patient she is not able to stand up, having nausea and episodes of vomiting with worsening difficulty in breathing for last 24 to 48 hours. She states her cough has gotten worse with occasional expectoration. She denies any diarrhea, subjective feeling of fever, abdominal pain. Her daughter and grandson have been sick with symptoms consistent of URI. She is not aware of any changes in her medications. She last took her steroids today morning but not sure of the dose. In the ER patient was found to be hypoxic requiring 2 L of oxygen supplementation to maintain saturation over 90% Review of Systems General: Reports: 10 or more systems reviewed and unremarkable except in HPI and below Const: Denies: fever(s), chills, body aches, change in appetite, change in weight, malaise, night sweats, diaphoresis, change in sleep pattern, daytime sleepiness or snoring Eyes: Denies: change in vision, blurry vision, photophobia, eye discomfort or eye discharge ENMT: Denies: throat pain, enlarged tonsils, hoarseness, mouth pain, oral sores, dry mouth, tinnitus, nasal congestion or post nasal drip Card: Denies: chest pain, palpitations, irregular heart rhythm, edema, swelling of feet/ankles, lightheadedness, syncope, pre-syncope, dyspnea on exertion, orthopnea, leg pain with exertion or acrocyanosis Resp: Denies: dyspnea, productive cough, non-productive cough, wheezing, stridor, pain on inspiration, change in phlegm color, hemoptysis or chest congestion GI: Denies: abdominal pain, nausea, vomiting, hematemesis, coffee ground emesis, dysphagia, heartburn, diarrhea, constipation, bloating, GI cramping, change in bowel habits, pain on defecation, hematochezia or melena : Denies: flank pain, dysuria, urinary frequency, urinary urgency, urinary hesitancy, nocturia or hematuria Musc: Denies: neck pain, back pain, extremity pain, joint pain, joint swelling, joint redness, joint stiffness or limited range of motion Neuro: Denies: headache(s), numbness in extremities, weakness in extremities, sensory changes, lack of coordination, difficulty walking, frequent falls, dizziness, vertigo, confusion, Slurred speech present, difficulty communicating thoughts or seizure-like activity Psych: Denies: anxiety, depression, mood swings, panic attacks, hopelessness or irritability Endo: Denies: polyuria, polydipsia, tired all the time, cold intolerance, excessive sweating, flushing or heat intolerance John/Lymph: Denies: easy bruising or easy bleeding All/Imm: Denies: tongue swelling, facial swelling or acute wheezing Medications/Allergies Home Medications Medication Instructions Recorded Confirmed Last Taken Type calcium carb and lactate 200 1 tab PO QAM 12/28/19 12/08/23 12/07/23 History mg-vitamin D3 6.25 mcg (250 unit) tablet diphenhydramine HCl 25 mg capsule 25 mg PO TID PRN Itching 12/28/19 12/08/23 12/24/22 History (Benadryl) meclizine 25 mg tablet 25 mg PO TID PRN Dizziness 12/28/19 12/08/23 09/04/23 History multivitamin 1 tab PO DAILY 12/28/19 12/08/23 12/07/23 History potassium chloride 10 mEq 10 meq PO DAILY 12/28/19 12/08/23 12/07/23 History capsule,extended release red yeast rice 600 mg capsule 600 mg PO BID 12/28/19 12/08/23 12/07/23 History tolterodine 4 mg capsule,extended 4 mg PO DAILY 12/28/19 12/08/23 12/07/23 History release 24 hr vitamin B complex (B 1 tab PO DAILY 12/28/19 12/08/23 12/07/23 History Complex-Vitamin B12 tablet) denosumab 60 mg/mL subcutaneous 60 mg SUBCUT Q6M 0312/08/23 08/06/23 06:00 History syringe (Prolia) cyanocobalamin (vitamin B-12) 2,500 mcg PO DAILY 07/19/21 12/08/23 12/07/23 History 2,500 mcg tablet vitamin E mixed 1,000 unit capsule 4,000 unit PO DAILY 07/19/21 12/08/23 12/07/23 History Nebulizer and accessory kit #1 ea 02/05/23 12/08/23 Unknown Rx selenium 50 mcg tablet 50 mcg PO DAILY 02/05/23 12/08/23 12/07/23 History lidocaine-prilocaine 2.5 %-2.5 % 1 applic topical DAILY PRN 07/23/23 12/08/23 09/04/23 History topical cream inflammation and pain custom inserts #1 ea 08/06/23 12/08/23 Unknown Rx diphenoxylate-atropine 2.5 1 tab PO BID PRN diarrhea #10 tabs 08/30/23 12/08/23 09/02/23 Rx mg-0.025 mg tablet (Lomotil) ondansetron 4 mg disintegrating 4 mg PO Q6H PRN nausea and 08/30/23 12/08/23 09/04/23 Rx tablet vomiting #20 tabs apixaban 5 mg tablet (Eliquis) 5 mg PO BID #60 tabs 09/11/23 12/08/23 12/07/23 Rx prednisone 10 mg tablet 10 mg PO DIRECTED #30 tabs 10/27/23 12/08/23 12/07/23 Rx docusate sodium 100 mg capsule 100 mg PO BID 11/12/23 12/08/23 12/07/23 History (Colace) pantoprazole 40 mg tablet,delayed 40 mg PO DAILY #30 tabs 11/18/23 12/08/23 12/07/23 Rx release acetaminophen 325 mg capsule 325 mg PO Q6H PRN Pain 12/08/23 12/08/23 Unknown History (Tylenol) benzonatate 100 mg capsule 200 mg PO TID PRN Cough 12/08/23 12/08/23 Unknown History fluoxetine 40 mg capsule 40 mg PO DAILY 12/08/23 12/08/23 12/07/23 History levothyroxine 112 mcg tablet 112 mcg PO DAILY 12/08/23 12/08/23 12/07/23 History lorazepam 0.5 mg tablet 0.5 mg PO DAILY 12/08/23 12/08/23 12/07/23 History Allergies Allergy/AdvReac Type Severity Reaction Status Date / Time tetanus toxoid, adsorbed Allergy Severe unknown Verified 10/31/23 11:54 ciprofloxacin [From Cipro] Allergy Unknown ADR-Vomitin Verified 10/31/23 11:54 g erythromycin base Allergy Unknown ADR-Vomitin Verified 10/31/23 11:54 g gabapentin [From Neurontin] Allergy Unknown unknown Verified 10/31/23 11:54 hydrocodone [From Vicodin] Allergy Unknown unknown Verified 10/31/23 11:54 Influenza Virus Vaccines Allergy Unknown unknown Verified 10/31/23 11:54 tramadol [From Ultram] Allergy Unknown unknown Verified 10/31/23 11:54 aspirin Allergy stomach Verified 10/31/23 11:54 pain, unbearable egg Allergy unknown Verified 10/31/23 11:54 Fish Containing Products Allergy ALGY-Rash Verified 11/14/23 17:26 NSAIDS (Non-Steroidal Allergy heartburn, Verified 10/31/23 11:54 Anti-Inflamma stomach pain Tetanus Vaccines and Toxoid Allergy unknown Verified 10/31/23 11:54 adhesive AdvReac Unknown unknown Verified 10/31/23 11:54 PFSH Acute PFSH: Medical History Hypothyroidism COVID-2021 History of echocardiogram 06/2023 EF 60%, Grade I/IV diastolic dysfunction, severe AV stenosis 0.99, mean gradient 40.2 mmHg, peak velocity 4.19 ms 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 Primary osteoarthritis of left knee Iron deficiency anemia Dyslipidemia Port-A-Cath in place placed 12/2022 Adrenal insufficiency hospital stay 08/2023 Reversible airway obstruction Lesion of right [place] ureter History of recurrent UTI (urinary tract infection) Pulmonary nodules Interstitial lung disease Asthma Breast cancer Hydronephrosis of right kidney Osteoporosis Arthritis Aortic stenosis Hypertension DVT (deep venous thrombosis) Pulmonary embolism Obesity Surgical History History of cardiac catheterization 07/2023 no obstructive disease Hx of tubal ligation Hx of cystoscopy Hx of colonoscopy Age 65 Hx of cholecystectomy H/O: hysterectomy Hx of cataract surgery S/P tonsillectomy Family History Father , AT 92 Congestive heart failure (CHF) Mother , AT 100 of unknown cause Other CAD (coronary artery disease) Cancer Diabetes Hyperlipidemia Hypertension Stroke Denies family history of Psychiatric illness Chronic kidney disease (CKD) Suicide Family history of premature coronary artery disease Lung disease Social History Smoking and tobacco/nicotine status: never used tobacco/nicotine Alcohol intake: never Substance/Drug Use: never Marital status: / Current occupational status: retired and disabled Vitals/I&O/Wt Last Vital Signs Temp 98.2 F 12/08/23 10:58 Pulse 101 H 12/08/23 16:18 Resp 20 H 12/08/23 16:18 BP 97/65 12/08/23 16:18 Pulse Ox 91 12/08/23 16:18 O2 Del Method Room Air 12/08/23 16:18 O2 Flow Rate 1.5 12/08/23 14:16 Weight last 48 hrs Weight 107.501 kg Physical Exam Narrative: General: No acute distress, AO x3, chronically sick appearing, weak appearing, frail HEENT: PERRLA, pupils bilaterally equal and reactive Chest: Bilateral bronchial breath sounds with occasional rhonchi all over lung lay and coarse crackles CVS: S1-S2 regular, no murmurs, tachycardia, no gallops, no rubs Abdomen: Soft, nontender, no organomegaly, bowel sounds present Neuro: No focal deficits, no facial deformity, AO x3, power 5/5 in all limbs Data 12/08/23 11:48 12/08/23 11:48 A&P Assessment and plan (1) Hypoxic respiratory failure: Patient getting short of breath on minimal conversation. Requiring 2 L of oxygen supplementation. At baseline on room air. Has had recent COVID-19 and parainfluenza infection. CTA chest done in the ER negative for acute pulmonary embolism but does show concerns for minimal mucous plugging. No consolidation seen in the CTA. Patient has no leukocytosis. Check respiratory viral panel, sputum culture, procalcitonin. Patient is immunocompromised chronically in setting of steroids. Check fungitel, LDH. No concerning consolidation on the CTA for now. Hold off on antibiotics for now. Concerns for pneumonia low for now. Oxygen supplementation keeping saturation over 90%. Patient received Solu-Medrol 125 mg one-time in the ER. Will continue with prednisone 40 mg daily for now. DuoNebs every 6 hour, Pulmicort twice daily. Aggressive pulmonary toilet with I-S and flutter valve. Out of bed to chair. (2) Interstitial lung disease: (3) COPD exacerbation: (4) Severe aortic valve stenosis: Being worked up as an outpatient at [place] for TAVR. (5) Port-A-Cath in place: (6) Chronic anticoagulation: Continue with home dose of Eliquis 5 mg twice daily. (7) Adrenal insufficiency: Chronically on steroids. Most recently discharged on 10 mg daily for 1 week followed by 5 mg daily. Not sure of the dose she is currently taking. For now continue with prednisone 40 mg oral daily. Given recurrent admissions with weakness it is possible that patient will need acute 10 mg of prednisone daily on discharge. (8) 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: (9) Immunocompromised state: (10) Physical deconditioning: (11) Weakness: Most likely in setting of recurrent admissions from [id number] COVID-19 parainfluenza infection in an elderly female who is being worked up as an outpatient for severe for TAVR along with adrenal insufficiency. Cannot rule out weakness in setting of adrenal insufficiency. Patient possibly requires a higher dose of steroids going forward. Check cortisol level. Depending on the level we will plan for ACTH stimulation test. Plan CODE STATUS: Full code Cardiac diet Prednisone for PUD prophylaxis Eliquis will be sufficient for DVT prophylaxis Physical therapy evaluation. Discharge plan: Given recurrent admissions, physical deconditioning, weakness it is possible that patient will need discharge to SNF. Will consult case management. Attestations Medical Necessity Statement*: Admission for more than 2 midnights for management of hypoxic respiratory failure in setting of COPD exacerbation, diastolic heart failure in setting of aortic stenosis requiring TAVR, generalized weakness in setting of recurrent admissions, adrenal insufficiency Diagnoses Hypoxic respiratory failure J96.91 Interstitial lung disease J84.9 COPD exacerbation J44.1 Severe aortic valve stenosis I35.0 Port-A-Cath in place Z95.828 Chronic anticoagulation Z79.01 Adrenal insufficiency E27.40 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
[2023-12-08 17:44] LABS: Lactic Sepsis W/Reflex 1.5 mmol/L (0.5-2.2)
[2023-12-08 17:52] LABS: Procalcitonin 0.11 ng/mL (0-0.5)
--- NOTE | 2023-12-08 17:54 | ECG_ITS ---
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 Measurements Intervals [place] Rate: 96 P: 45 NV: 155 QRS: 2 QRSD: 88 T: 39 QT: 363 QTc: 461 Interpretive Statements SINUS RHYTHM LOW QRS VOLTAGE IN PRECORDIAL LEADS [QRS DEFLECTION < 1.0 mV IN CHEST LEADS] Compared to ECG 12/08/2023 13:27:45 No significant changes Electronically Signed On 12-08-2023 18:19:19 CDT by Shabbir Momin M.D. [id number]
[2023-12-08] MEDS: apixaban 5 mg Tablet PO (18:06)
[2023-12-08 18:32] LABS: Troponin 5 6HR 33.16 ng/L (0-10); Troponin 5 6HR Delta 1.16 ng/L (0-12)
[2023-12-08 19:15] LABS: Adenovirus Not Detected (NOT DETECT); Chlamydia Pneumoniae Not Detected (NOT DETECT); Coronavirus 229E,HKU1,NL63,OC4 Not Detected (NOT DETECT); Human Metapneumovirus Not Detected (NOT DETECT); Human Rhinovirus/Enterovirus Not Detected (NOT DETECT); Influenza A Not Detected (NOT DETECT); Influenza A H1 Not Detected (NOT DETECT); Influenza A H1-2009 Not Detected (NOT DETECT); Influenza A H3 Not Detected (NOT DETECT); Influenza B Not Detected (NOT DETECT); Mycoplasma Pneumoniae Not Detected (NOT DETECT); Parainfluenza Virus Type 1 Not Detected (NOT DETECT); Parainfluenza Virus Type 2 Not Detected (NOT DETECT); Parainfluenza Virus Type 3 Not Detected (NOT DETECT); Parainfluenza Virus Type 4 Not Detected (NOT DETECT); Respiratory Syncytial Virus A Not Detected (NOT DETECT); Respiratory Syncytial Virus B Not Detected (NOT DETECT); SARS-COV-2 Not Detected (NOT DETECT)
[2023-12-08] MEDS: benzonatate 100 mg Capsule 200 MG PO (20:26)
[2023-12-08] MEDS: acetylcysteine 200 mg/mL SDV 4 mL 100 MG INHALATION (20:33)
[2023-12-08] MEDS: budesonide 0.5 mg/2 mL Neb INHALATION (20:34)
[2023-12-08 22:00] LABS: Charge for UA Resulting for Rev
[2023-12-08 22:16] LABS: Bacteria Urine TRACE /hpf; Bilirubin Urine Neg (Negative); Blood Urine Neg (Negative); Glucose Urine UA Norm (Normal); Ketones Urine 1+ (Negative); Leukocyte Esterase Urine 2+ (Negative); Nitrate Urine Negative (Negative); Protein Urine Trace (Negative); RBC Urine 0-4 /hpf (0-2); Squamous Epithelial Cell Urine 0-4 /hpf (0-5); Urine Appearance Slightly Cloudy (CLEAR); Urine Color Yellow (Yellow); Urobilinogen Urine Norm (Negative); pH Urine 5 (5-7)
[2023-12-08 22:17] LABS: Add Urine Culture? No
[2023-12-09] VITALS (9 sets, daily range): BP systolic 108–146; BP diastolic 67–74; PULSE 76–109; RESP 16–23; TEMP 36.6–36.7; O2SAT 91–98; BMI 35.4
[2023-12-09] MEDS: acetylcysteine 200 mg/mL SDV 4 mL 100 MG INHALATION ×2 (02:37→07:42)
[2023-12-09] MEDS: ipratropium-albuterol 3 mL Neb INHALATION ×2 (02:37→07:42)
[2023-12-09 05:06] LABS: Basophils % 0.3 %; Hematocrit 31.1 % (36-47); Lymphocytes # 0.2 10^3/uL (0.8-4.8); Lymphocytes % 4.7 %; Mean Corpuscular HGB Conc 32.2 g/dL (30-55); Mean Corpuscular Hemoglobin 33.4 pg (27-33); Mean Platelet Volume 9.7 fL (7.4-10.4); Neutrophils # 3.61 10^3/uL (1.8-7.7); Neutrophils % 93.5 %; Nucleated Red Blood Cells % 0 %; Platelet Count 165 10^3/cmm (157-399); Red Blood Count 2.99 10^6/uL (3.85-5.65); Red Cell Distribution Width 14.4 % (12.1-15.1); White Blood Count 3.86 10^3/uL (3.29-11.43)
[2023-12-09 05:33] LABS: Alanine Aminotransferase 25 U/L (0-33); Albumin Level 3.3 g/dL (3.5-5.2); Alkaline Phosphatase 72 U/L (35-105); Anion Gap 19.6 (5-19); Aspartate Amino Transferase 24 U/L (0-32); Blood Urea Nitrogen 15 mg/dL (8-23); Calcium 9.4 mg/dL (8.5-10.5); Carbon Dioxide 21 mmol/L (22-29); Chloride 101 mmol/L (98-107); Creatinine Clr Calc Pharmacy 63.4173; Globulin 2.2 g/dL (1.3-4.6); Glucose 150 mg/dL (65-115); Magnesium 1.9 mg/dL (1.7-2.3); Osmolality Calculated 288 mOsm/kg (285-295); Phosphorus 3.3 mg/dL (2.5-4.5); Potassium 4.6 mmol/L (3.5-5.1); Sodium 137 mmol/L (136-145); Total Bilirubin 0.3 mg/dL (0.15-1.2); Total Protein 5.5 g/dL (6.6-8.7)
[2023-12-09 05:35] LABS: Cortisol Random 5.48 ug/dL (2.47-19.5); Procalcitonin 0.11 ng/mL (0-0.5)
[2023-12-09] MEDS: budesonide 0.5 mg/2 mL Neb INHALATION (07:49)
[2023-12-09] MEDS: predniSONE 10 mg Tablet 40 MG PO (08:37)
[2023-12-09] MEDS: pantoprazole DR 40 mg Tablet PO (08:37)
[2023-12-09] MEDS: tolterodine 2 mg Tablet 4 MG PO (08:37)
[2023-12-09] MEDS: benzonatate 100 mg Capsule 200 MG PO (08:37)
[2023-12-09] MEDS: LORazepam 0.5 mg Tablet PO (08:38)
[2023-12-09] MEDS: levothyroxine 112 mcg Tablet PO (08:38)
[2023-12-09] MEDS: apixaban 5 mg Tablet PO (08:38)
[2023-12-09] MEDS: fluoxetine 20 mg Capsule 40 MG PO (08:38)
[2023-12-09 08:54] LABS: Lactate Dehydrogenase 213 U/L (135-214)
--- NOTE | 2023-12-09 09:17 | PC.CHAP ---
Pastoral Care Encounter/Spiritual Assessment Type of Contact [] Declined business supervisor visit [] Patient/Family/Request visit [] Outpatient visit [] Follow-up visit [] Physician referral [] Code/Alert [x] Routine visit [] Staff referral [] Actively dying [] Patient sleeping [] Family support [] [] Out of room [] Palliative care [] [] Receiving care in room [] Pre-surgical visit [] Trauma [] Long length of stay [] ICU visit [] Other: Relational/Emotional Strength [x] Patient feels connected with others/family/visitors/staff [] Distress [] Loneliness/isolation [] Abandonment Spirituality of Patient [x] Person of Petty [] Attends Mosque of their Petty [x] Believes in Prayer [] Reads Bible or Episcopal materials [] There are Spiritual issues to be addressed Secured Entrance Monitor Interventions [x] Prayer [x] Active listening [] Non-anxious presence [x] Spiritual/emotional support [] Crisis/trauma care [] Spiritual counseling [] Bereavement support [] Provided bereavement packet [] Provided Bible/devotional materials [] Provided toy/stuffed animal, coloring book to patient or family member [] Provided Communion [] Anointing/[place] [] Salvation [x] Completed spiritual assessment [] Other: Impact on Illness or Injury [] Angry [] Fearful [] Anxious [] Often cries [] Exhaustion [] Unable to work [] Unable to attend evangelical [] Unable to walk/stand [] Unable to read [] Unable to drive [] Unable to eat/drink [] Unable to sleep [] Unable to be with family [] Patient intubated [] Other: Summary Time spent with patient 5 min
--- NOTE | 2023-12-09 11:04 | P.DS_ITS ---
Discharge Providers Date of Admission: 12/08/23 17:09 Date of Discharge: December 09, 2023 Attending Provider at Admission: Weston Nagel MD Attending Provider at Discharge: Weston Nagel MD Primary Care Provider: Sánchez Macario Diagnoses at Discharge Discharge Diagnosis (1) Hypoxic respiratory failure: Status: Acute (2) Interstitial lung disease: Status: Chronic (3) COPD exacerbation: Status: Acute (4) Severe aortic valve stenosis: Status: Chronic (5) Port-A-Cath in place: Status: Chronic Permanent problem details: placed 12/2022 (6) Chronic anticoagulation: Status: Chronic Permanent problem details: 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 (7) Adrenal insufficiency: Status: Acute Permanent problem details: hospital stay 08/2023 (8) 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: Status: Acute (9) Immunocompromised state: Status: Acute (10) Physical deconditioning: Status: Acute (11) Weakness: Status: Acute Reason for Visit Reason for Visit: sob Hospital Course Hospital Course Janet Calvillo is a 83 year old female with past medical history of severe aortic stenosis, undergoing evaluation for TAVR in [place], invasive ductal carcinoma of left breast, diastolic heart failure, adrenal insufficiency on chronic steroids, recent admission for COVID-19 and parainfluenza infection with last discharge on 11/17 to [facility] when she was treated for hypoxic respiratory failure and septic shock secondary to parainfluenza. As per the patient she was discharged from the intermediate after 2 weeks and 3 days after reaching back home which was possibly 2 days ago she started feeling weak again. As per patient she is not able to stand up, having nausea and episodes of vomiting with worsening difficulty in breathing for last 24 to 48 hours. She states her cough has gotten worse with occasional expectoration. She denies any diarrhea, subjective feeling of fever, abdominal pain. Her daughter and grandson have been sick with symptoms consistent of URI. She is not aware of any changes in her medications. She last took her steroids today morning but not sure of the dose. In the ER patient was found to be hypoxic requiring 2 L of oxygen supplementation to maintain saturation over 90%. Patient responded well to the treatment and improved quicker than expected. It is believed her symptoms on admission are most likely in setting of adrenal insufficiency requiring higher dose of steroids than what she is on. Patient was on room air and walked 15 feet with physical therapist. She is able to tolerate oral diet. She has been discharged in hemodynamically stable condition on steroid taper with 40 mg daily for next 1 week and weaning by 10 mg weekly with maintenance dose of 10 mg daily. She will also be on Bactrim DS 3 times a week prophylaxis. Discharge instructions and plan were discussed in detail with patient and patient's daughter/caregiver over the phone. All the questions were answered. Physical Exam Narrative: General: No acute distress, AO x3, chronically sick appearing, weak appearing, frail HEENT: PERRLA, pupils bilaterally equal and reactive Chest: Bilateral bronchial breath sounds with occasional rhonchi all over lung lay and coarse crackles CVS: S1-S2 regular, no murmurs, tachycardia, no gallops, no rubs Abdomen: Soft, nontender, no organomegaly, bowel sounds present Neuro: No focal deficits, no facial deformity, AO x3, power 5/5 in all limbs Discharge Data Studies Completed and Pending Completed Studies During Hospitalization Category Date Time Status CT angio chest PE protcl [id number] Stat Cat Scan 12/08/23 12:46 Completed XR chest 1V portable [id number] Stat Exams 12/08/23 11:19 Completed Pending at discharge Category Date Time Status Blood Culture Stat Lab 12/08/23 17:15 Results Complete Blood Count w/Auto AM LABS Lab 12/10/23 04:00 Ordered Comprehensive Metabolic Panel AM LABS Lab 12/10/23 04:00 Ordered Fungitell Glucan Assay (Blood) Routine Lab 12/09/23 04:41 Received Sputum Culture and Gram Stain Stat Lab 12/08/23 17:19 Uncollected Radiology Impressions Chest X-Ray 12/08/23 11:19 IMPRESSION: No acute cardiopulmonary process. Chest CTA 12/08/23 12:46 IMPRESSION: 1. Thin intraluminal septation noted in the proximal right lower lobe pulmonary artery may represent minimal residual evidence of chronic pulmonary embolus. No acute pulmonary embolus detected. 2. Peribronchial thickening noted in the right infrahilar area with mild adjacent ground-glass opacity and nodularity may represent pneumonia and small areas mucous plugging. 3. 6 mm and smaller pulmonary nodules most of which appear unchanged from prior exam and have been stable. However, 4 mm pleural-based nodule right upper lobe was not seen on most recent prior exam but most likely represents an intrapulmonary lymph node. For patients at low risk (minimal or absent history of smoking and of other known risk factors), no routine follow-up is indicated. For patients at high risk (history of smoking or of other known risk factors), consider optional CT Chest at 12 months. (Reference: Ainsley) 4. Trace bibasilar atelectasis or scar. 5. Mild coronary arterial calcification, indicating the presence of coronary artery disease. If the patient has associated symptoms recommend management as per chest pain guidelines. If the patient is asymptomatic consider reviewing modifiable cardiovascular risk factors and managing as per guidelines for primary prevention. REFERENCES: Ainsley Anne et al. Guidelines for Management of Incidental Pulmonary Nodules Detected on CT Images: From the Fleischner Society 2017. Radiology. 2017;284(1):228-243. Microbiology 12/08/23 21:57 Urine Kidney Bacterial Antigens - Final 12/08/23 17:15 Blood Blood Culture - Preliminary SPECIMEN COLLECTED 12/08/23 17:11 Blood Blood Culture - Preliminary SPECIMEN COLLECTED Laboratory Results WBC 3.86 10^3/uL (3.29-11.43) 12/09/23 04:41 RBC 2.99 10^6/uL (3.85-5.65) L 12/09/23 04:41 Hgb 10.00 g/dL (11.27-16.99) L 12/09/23 04:41 Hct 31.1 % (36-47) L 12/09/23 04:41 MCV 104.0 fl (85-98) H 12/09/23 04:41 MCH 33.4 pg (27-33) H 12/09/23 04:41 MCHC 32.2 g/dL (30-55) 12/09/23 04:41 RDW 14.4 % (12.1-15.1) 12/09/23 04:41 Plt Count 165 10^3/cmm (157-399) 12/09/23 04:41 MPV 9.7 fL (7.4-10.4) 12/09/23 04:41 Neut % (Auto) 93.5 % 12/09/23 04:41 Lymph % (Auto) 4.7 % 12/09/23 04:41 Vermilion % (Auto) 1.0 % 12/09/23 04:41 Eos % (Auto) 0.0 % 12/09/23 04:41 Baso % (Auto) 0.3 % 12/09/23 04:41 Neut # (Auto) 3.61 10^3/uL (1.8-7.7) 12/09/23 04:41 Lymph # (Auto) 0.2 10^3/uL (0.8-4.8) L 12/09/23 04:41 Vermilion # (Auto) 0.0 10^3/uL (0.2-0.9) L 12/09/23 04:41 Eos # (Auto) 0.0 10^3/uL (0.0-0.8) 12/09/23 04:41 Baso # (Auto) 0.0 10^3/uL (0.0-0.1) 12/09/23 04:41 Nucleated RBC % (auto) 0 % 12/09/23 04:41 Nucleated RBCs # 0.0 /100WBC 12/09/23 04:41 D-Dimer 1.91 ug/mLFEU (0-0.59) H 12/08/23 11:48 Sodium 137 mmol/L (136-145) 12/09/23 04:41 Potassium 4.6 mmol/L (3.5-5.1) 12/09/23 04:41 Chloride 101 mmol/L (98-107) 12/09/23 04:41 Carbon Dioxide 21 mmol/L (22-29) L 12/09/23 04:41 Anion Gap 19.6 (5-19) H 12/09/23 04:41 BUN 15 mg/dL (8-23) 12/09/23 04:41 Creatinine 0.6 mg/dL (0.5-0.9) 12/09/23 04:41 GFR Calculation Not Reportable 12/09/23 04:41 Glucose 150 mg/dL (65-115) H 12/09/23 04:41 Calculated Osmolality 288 mOsm/kg (285-295) 12/09/23 04:41 Lactic Acid 1.5 mmol/L (0.5-2.2) 12/08/23 17:11 Calcium 9.4 mg/dL (8.5-10.5) 12/09/23 04:41 Phosphorus 3.3 mg/dL (2.5-4.5) 12/09/23 04:41 Magnesium 1.9 mg/dL (1.7-2.3) 12/09/23 04:41 Total Bilirubin 0.3 mg/dL (0.15-1.2) 12/09/23 04:41 AST 24 U/L (0-32) 12/09/23 04:41 ALT 25 U/L (0-33) 12/09/23 04:41 Alkaline Phosphatase 72 U/L (35-105) 12/09/23 04:41 Lactate Dehydrogenase 213 U/L (135-214) 12/09/23 04:41 Troponin T Baseline 32 ng/L (0-10) H 12/08/23 11:48 Troponin T 120 Minute 29.64 ng/L (0-10) H 12/08/23 13:42 Delta Troponin T -2.36 ABS# (0-10) L 12/08/23 13:42 Troponin T Hi Sens 6Hr 33.16 ng/L (0-10) H 12/08/23 18:00 Troponin T Hi Sens 6Hr Delta 1.16 ng/L (0-12) 12/08/23 18:00 NT-Pro-B Natriuret Pep 436 pg/mL (0-450) 12/08/23 11:48 Total Protein 5.5 g/dL (6.6-8.7) L 12/09/23 04:41 Albumin 3.3 g/dL (3.5-5.2) L 12/09/23 04:41 Globulin 2.2 g/dL (1.3-4.6) 12/09/23 04:41 Procalcitonin 0.11 ng/mL (0-0.5) 12/09/23 04:41 Random Cortisol 5.48 ug/dL (2.47-19.5) 12/09/23 04:41 Urine Color Yellow (Yellow) 12/08/23 21:57 Urine Appearance Slightly cloudy (CLEAR) 12/08/23 21:57 Urine pH 5 (5-7) 12/08/23 21:57 Ur Specific Mckenzie 1.020 (1.005-1.030) 12/08/23 21:57 Urine Protein Trace (Negative) 12/08/23 21:57 Urine Glucose (UA) Norm (Normal) 12/08/23 21:57 Urine Ketones 1+ (Negative) H 12/08/23 21:57 Urine Blood Neg (Negative) 12/08/23 21:57 Urine Nitrate Negative (Negative) 12/08/23 21:57 Urine Bilirubin Neg (Negative) 12/08/23 21:57 Urine Urobilinogen Norm mg/dL (Negative) 12/08/23 21:57 Ur Leukocyte Esterase 2+ (Negative) H 12/08/23 21:57 Urine RBC 0-4 /hpf (0-2) H 12/08/23 21:57 Urine WBC 5-10 /hpf (0-5) H 12/08/23 21:57 Ur Squamous Epith Cells 0-4 /hpf (0-5) H 12/08/23 21:57 Amorphous Sediment Not Reportable 12/08/23 21:57 Urine Bacteria Trace /hpf (NONE) 12/08/23 21:57 Adenovirus (PCR) Not detected (NOT DETECT) 12/08/23 17:04 C. pneumoniae DNA (PCR) Not detected (NOT DETECT) 12/08/23 17:04 Coronavirus 229E (PCR) Not detected (NOT DETECT) 12/08/23 17:04 Human Metapneumovir PCR Not detected (NOT DETECT) 12/08/23 17:04 Influenza A (H1) PCR Not detected (NOT DETECT) 12/08/23 17:04 Influ A (H1/09) PCR Not detected (NOT DETECT) 12/08/23 17:04 Influenza A (H3) PCR Not detected (NOT DETECT) 12/08/23 17:04 Influenza Type A (PCR) Not detected (NOT DETECT) 12/08/23 17:04 Influenza Type B (PCR) Not detected (NOT DETECT) 12/08/23 17:04 M. pneumoniae (PCR) Not detected (NOT DETECT) 12/08/23 17:04 Parainfluenza 1 (PCR) Not detected (NOT DETECT) 12/08/23 17:04 Parainfluenza 2 (PCR) Not detected (NOT DETECT) 12/08/23 17:04 Parainfluenza 3 (PCR) Not detected (NOT DETECT) 12/08/23 17:04 Parainfluenza 4 (PCR) Not detected (NOT DETECT) 12/08/23 17:04 RSV Type A (PCR) Not detected (NOT DETECT) 12/08/23 17:04 RSV Type B (PCR) Not detected (NOT DETECT) 12/08/23 17:04 Entero/Rhino (PCR) Not detected (NOT DETECT) 12/08/23 17:04 SARS-CoV-2 (PCR) Not detected (NOT DETECT) 12/08/23 17:04 SARS-CoV-2 Ag (Rapid) negative (Negative) 12/08/23 12:00 Vitals Last Vital Signs Temp 97.9 F 12/09/23 07:38 Pulse 92 12/09/23 07:49 Resp 16 12/09/23 07:49 BP 131/74 12/09/23 07:38 Pulse Ox 98 12/09/23 07:49 O2 Del Method Room Air 12/09/23 07:49 O2 Flow Rate 1.5 12/08/23 14:16 Discharge Plan Discharge Patient Disposition: Home Health Service Condition: Stable Prescriptions: New ipratropium-albuterol 0.5 mg-3 mg(2.5 mg base)/3 mL Solution For Nebulization 3 ml inhalation Q6H.RESP Qty: 180 2RF budesonide 0.5 mg/2 mL Suspension For Nebulization 0.5 mg inhalation BID.RESPIRATORY Qty: 60 0RF sulfamethoxazole-trimethoprim [Bactrim DS] 800-160 mg tablet 1 tab PO .Three times a week Qty: 60 0RF Rx Instructions: Prophylaxis as on high dose steroids Continued diphenhydramine HCl [Benadryl] 25 mg capsule 25 mg PO TID PRN (Reason: Itching) vitamin B complex [B Complex-Vitamin B12] Tablet 1 tab PO DAILY calcium carb,lactat-vitamin D3 200 mg calcium -250 unit tablet 1 tab PO QAM meclizine 25 mg tablet 25 mg PO TID PRN (Reason: Dizziness) multivitamin Tablet 1 tab PO DAILY tolterodine 4 mg capsule,extended release 24hr 4 mg PO DAILY red yeast rice 600 mg capsule 600 mg PO BID Rx Instructions: give with meal/snack potassium chloride 10 mEq capsule, extended release 10 meq PO DAILY Prolia 60 mg/mL syringe 60 mg SUBCUT Q6M cyanocobalamin (vitamin B-12) 2,500 mcg tablet 2,500 mcg PO DAILY vitamin E mixed 1,000 unit capsule 4,000 unit PO DAILY selenium 50 mcg tablet 50 mcg PO DAILY (DME) Nebulizer and accessory kit See Rx Instructions .Route .MEDSUPPLY Qty: 1 0RF Patient Comments: Patient states that they do not have the machine. Rx Instructions: As directed (DME) custom inserts See Rx Instructions .Route .MEDSUPPLY Qty: 1 0RF Rx Instructions: As directed lidocaine-prilocaine 2.5-2.5 % cream 1 applic topical DAILY PRN (Reason: inflammation and pain) ondansetron 4 mg tablet,disintegrating 4 mg PO Q6H PRN (Reason: nausea and vomiting) Qty: 20 0RF diphenoxylate-atropine [Lomotil] 2.5-0.025 mg tablet 1 tab PO BID PRN (Reason: diarrhea) Qty: 10 0RF Eliquis 5 mg tablet 5 mg PO BID Qty: 60 0RF docusate sodium [Colace] 100 mg Capsule 100 mg PO BID pantoprazole 40 mg Tablet,Delayed Release (Dr/Ec) 40 mg PO DAILY Qty: 30 0RF fluoxetine 40 mg capsule 40 mg PO DAILY lorazepam 0.5 mg tablet 0.5 mg PO DAILY levothyroxine 112 mcg tablet 112 mcg PO DAILY benzonatate 100 mg capsule 200 mg PO TID PRN (Reason: Cough) Tylenol 325 mg capsule 325 mg PO Q6H PRN (Reason: Pain) Changed prednisone 10 mg tablet See Taper PO DIRECTED Qty: 100 0RF Taper: predniSONE 60-10 40 mg Daily for 7 Days and 0 Hour 30 mg Daily for 7 Days and 0 Hour 20 mg Daily for 7 Days and 0 Hour 10 mg Daily for 30 Days and 0 Hour Discharge Orders: Discharge Order (Routine); Ordered 12/09/23 Ordered By: Weston Nagel Other Ambulatory Orders: DME: Nebulizer with Neb Kit (Order) Location: None Selected Ordered By: Weston Nagel Referrals: [facility] [Outside] Sánchez Macario [Primary Care Provider] - 12/12/23 2:00 pm Discharge Diet: Cardiac Discharge Activity: Resume usual activity and Increase activity as tolerated Patient Instructions: Opioid Safety Activity Restrictions/Additional Instructions: Take prednisone taper as prescribed. Take 40 mg for 1 week followed by 30 mg for 1 week followed by 20 mg for 1 week and then 10 mg going forward. Bactrim DS is a prophylaxis that you will be on 3 times a week given high-dose steroids. Discharge Attestations Time Spent in Discharge Care*: greater than 30 min Specific Discharge Activities: educating patient, educating and/or supporting family/caregiver, discussing with pcp/other providers, discussing with outsole caser/social workers/dc planners, documenting/other paperwork and evaluating patient/reviewing data Status at Discharge: Cognitive status at discharge: cognitively intact , Behavioral status at discharge: cooperative , Functional status at discharge: uses cane/walker , Overall status at discharge: patient is progressing back to baseline Quality Metrics Clinical Quality Measures [ No reported AMI, CVA or VTE this stay] Coding Level of Care Code 72776 Total time (in minutes) for Discharge: 60 Diagnoses Hypoxic respiratory failure J96.91 Interstitial lung disease J84.9 COPD exacerbation J44.1 Severe aortic valve stenosis I35.0 Port-A-Cath in place Z95.828 Chronic anticoagulation Z79.01 Adrenal insufficiency E27.40 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
--- NOTE | 2023-12-09 14:08 | PC.NURSE ---
Pt states that a blue [employer] shirt was sent to [facility]. This RN calls [facility] and it is not there. Notified pt and daughter. Sending pt home in hospital gown to wear as shirt.
--- NOTE | 2023-12-09 14:10 | PC.NURSE ---
Deaccessed port-a-cath to right upper chest per hospital policy. Tolerated well.
[2023-12-12 09:59] LABS: Fungitell 1-3-B Glucan Assay <31 pg/ml; Interpretation Negative (Negative)
== END 2023-12-09 14:13 | disposition home health service (06) | DRG 643 ==
LOC: ER 15:37 → MEDSURG 16:40
PROVIDERS: Admitting Provider Student in an Organized Health Care Education/Training Program; Emergency Provider Emergency Medicine; PCP Family Medicine; Visit Provider Student in an Organized Health Care Education/Training Program
DX: E27.40 Unspecified adrenocortical insufficiency (principal); J96.91 Respiratory failure, unspecified with hypoxia; I50.32 Chronic diastolic (congestive) heart failure; J44.1 Chronic obstructive pulmonary disease with (acute) exacerbation; D84.9 Immunodeficiency, unspecified; I35.0 Nonrheumatic aortic (valve) stenosis; C50.412 Malignant neoplasm of upper-outer quadrant of left female breast; E03.9 Hypothyroidism, unspecified; M81.0 Age-related osteoporosis without current pathological fracture; E66.9 Obesity, unspecified; Z68.35 Body mass index [BMI] 35.0-35.9, adult; Z95.828 Presence of other vascular implants and grafts; Z79.52 Long term (current) use of systemic steroids; Z79.01 Long term (current) use of anticoagulants; Z87.440 Personal history of urinary (tract) infections; Z86.16 Personal history of COVID-19; Z86.718 Personal history of other venous thrombosis and embolism; Z86.711 Personal history of pulmonary embolism; Z11.52 Encounter for screening for COVID-19
CPT/HCPCS: 36415; 36591; 71045; 71275; 80053; 81003; 81015; 82533; 83605; 83615; 83735; 83880; 84100; 84145; 84484; 85025; 85378; 86403; 87040; 87426; 87449; 87486; 87581; 87633; 93005; 94640; 96361; 96374; 97116; 97161; 99285; G0378; J2919; J7040; J7512; J7608; J7626; Q9967

== ENCOUNTER 2023-12-13 10:14 | Observation (INO) | payer MEDICARE, MEDICAID, SELFPAY ==
[2023-12-13] VITALS (11 sets, daily range): BP systolic 103–147; BP diastolic 51–95; PULSE 62–93; RESP 14–24; TEMP 36.4–36.9; O2SAT 93–98; BMI 35.3
--- NOTE | 2023-12-13 10:23 | XRR_ITS ---
PROCEDURE INFORMATION: Exam: XR Chest Exam date and time: 12/13/2023 10:42 AM Age: 83 years old Clinical indication: Cough and dyspnea; Additional info: Dyspnea/cough TECHNIQUE: Imaging protocol: Radiologic exam of the chest. Views: 1 view. COMPARISON: CT angio chest PE protcl [id number] 12/08/2023 12:59 PM FINDINGS: Tubes, catheters and devices: Tip of the right chest wall port projects over the right atrium. Lungs: Lungs are clear. Pleural spaces: Unremarkable. No pleural effusion. No pneumothorax. Heart/Mediastinum: Mildly widened cardiomediastinal silhouette, a component of which may be due to mild rightward rotation. Bones/joints: Unremarkable. XR/XR chest 1V portable [id number] IMPRESSION: No acute cardiopulmonary abnormality.
[2023-12-13 10:41] LABS: Basophils # 0.1 10^3/uL (0.0-0.1); Eosinophils # 0.3 10^3/uL (0.0-0.8); Eosinophils % 5.4 %; Hematocrit 31.4 % (36-47); Lymphocytes # 0.9 10^3/uL (0.8-4.8); Lymphocytes % 17.3 %; Mean Corpuscular HGB Conc 31.8 g/dL (30-55); Mean Corpuscular Hemoglobin 33.6 pg (27-33); Mean Corpuscular Volume 105.4 fl (85-98); Mean Platelet Volume 9.5 fL (7.4-10.4); Monocytes # 0.5 10^3/uL (0.2-0.9); Monocytes % 9.9 %; Neutrophils # 3.39 10^3/uL (1.8-7.7); Nucleated Red Blood Cells % 0 %; Platelet Count 184 10^3/cmm (157-399); Red Blood Count 2.98 10^6/uL (3.85-5.65); Red Cell Distribution Width 15.2 % (12.1-15.1); White Blood Count 5.14 10^3/uL (3.29-11.43)
[2023-12-13] MEDS: sodium chloride 0.9% 1,000 ML 999 ML IV (10:47)
--- NOTE | 2023-12-13 10:47 | ED_ITS ---
HPI - Nausea/Vomiting/Diarrhea 2 General: Chief complaint: Nausea/Vomiting/Diarrhea Stated complaint: N/V Time Seen by Provider: 12/13/23 10:22 History of Present Illness: 83-year-old female presents emergency ro om via EMS from home complaining of brown-tinged vomitus at home generalized felt weak. Patient has a history of breast cancer has been off of any chemo or radiation since July. Her chemotherapy is on hold due to aortic valve stenosis. Patient is on Eliquis for history of DVT PE. She denies any shortness of breath at this time. She is concerned about the vomiting. She did not see any bright red blood has not had any hematochezia or melena. Denies abdominal or chest pain. Associated nausea: Yes Associated symtoms: Reports nausea; Denies chest pain or dysuria Related Data Home Medications Medication Instructions Recorded Confirmed calcium carb and lactate 200 1 tab PO QAM 12/28/19 12/08/23 mg-vitamin D3 6.25 mcg (250 unit) tablet diphenhydramine HCl 25 mg capsule 25 mg PO TID PRN Itching 12/28/19 12/08/23 (Benadryl) meclizine 25 mg tablet 25 mg PO TID PRN Dizziness 12/28/19 12/08/23 multivitamin 1 tab PO DAILY 12/28/19 12/08/23 potassium chloride 10 mEq 10 meq PO DAILY 12/28/19 12/08/23 capsule,extended release red yeast rice 600 mg capsule 600 mg PO BID 12/28/19 12/08/23 tolterodine 4 mg capsule,extended 4 mg PO DAILY 12/28/19 12/08/23 release 24 hr vitamin B complex (B 1 tab PO DAILY 12/28/19 12/08/23 Complex-Vitamin B12 tablet) denosumab 60 mg/mL subcutaneous 60 mg SUBCUT Q6M 06/26/20 12/08/23 syringe (Prolia) cyanocobalamin (vitamin B-12) 2,500 mcg PO DAILY 07/19/21 12/08/23 2,500 mcg tablet vitamin E mixed 1,000 unit capsule 4,000 unit PO DAILY 07/19/21 12/08/23 selenium 50 mcg tablet 50 mcg PO DAILY 02/05/23 12/08/23 lidocaine-prilocaine 2.5 %-2.5 % 1 applic topical DAILY PRN 04/03/24 08/19/24 topical cream inflammation and pain docusate sodium 100 mg capsule 100 mg PO BID 11/12/23 12/08/23 (Colace) acetaminophen 325 mg capsule 325 mg PO Q6H PRN Pain 12/08/23 12/08/23 (Tylenol) benzonatate 100 mg capsule 200 mg PO TID PRN Cough 12/08/23 12/08/23 fluoxetine 40 mg capsule 40 mg PO DAILY 12/08/23 12/08/23 levothyroxine 112 mcg tablet 112 mcg PO DAILY 12/08/23 12/08/23 lorazepam 0.5 mg tablet 0.5 mg PO DAILY 12/08/23 12/08/23 Previous Rx's Medication Instructions Recorded Nebulizer and accessory kit #1 ea 02/05/23 custom inserts #1 ea 08/06/23 diphenoxylate-atropine 2.5 1 tab PO BID PRN diarrhea #10 tabs 08/30/23 mg-0.025 mg tablet (Lomotil) ondansetron 4 mg disintegrating 4 mg PO Q6H PRN nausea and 08/30/23 tablet vomiting #20 tabs apixaban 5 mg tablet (Eliquis) 5 mg PO BID #60 tabs 09/11/23 pantoprazole 40 mg tablet,delayed 40 mg PO DAILY #30 tabs 11/18/23 release budesonide 0.5 mg/2 mL suspension 0.5 mg (2 mL) inhalation 12/09/23 for nebulization BID.RESPIRATORY #60 mL ipratropium 0.5 mg-albuterol 3 mg 3 ml inhalation Q6H.RESP #180 mL 12/09/23 (2.5 mg base)/3 mL nebulization soln prednisone 10 mg tablet See Taper PO DIRECTED #100 tabs 12/09/23 sulfamethoxazole 800 1 tab PO .Three times a week #60 12/09/23 mg-trimethoprim 160 mg tablet tabs (Bactrim DS) Allergies Allergy/AdvReac Type Severity Reaction Status Date / Time tetanus toxoid, adsorbed Allergy Severe unknown Verified 10/31/23 11:54 ciprofloxacin [From Cipro] Allergy Unknown ADR-Vomitin Verified 10/31/23 11:54 g erythromycin base Allergy Unknown ADR-Vomitin Verified 10/31/23 11:54 g gabapentin [From Neurontin] Allergy Unknown unknown Verified 10/31/23 11:54 hydrocodone [From Vicodin] Allergy Unknown unknown Verified 10/31/23 11:54 Influenza Virus Vaccines Allergy Unknown unknown Verified 10/31/23 11:54 tramadol [From Ultram] Allergy Unknown unknown Verified 10/31/23 11:54 aspirin Allergy stomach Verified 10/31/23 11:54 pain, unbearable egg Allergy unknown Verified 10/31/23 11:54 Fish Containing Products Allergy ALGY-Rash Verified 11/14/23 17:26 NSAIDS (Non-Steroidal Allergy heartburn, Verified 10/31/23 11:54 Anti-Inflamma stomach pain Tetanus Vaccines and Toxoid Allergy unknown Verified 10/31/23 11:54 adhesive AdvReac Unknown unknown Verified 10/31/23 11:54 Review of Systems 2 Const: Denies: fever(s) or chills Card: Denies: chest pain Resp: Denies: dyspnea GI: Reports: abdominal pain, nausea, vomiting and coffee ground emesis : Denies: dysuria, urinary frequency or urinary urgency Musc: Denies: neck pain or back pain Skin/Breast: Denies: rash 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 Primary osteoarthritis of left knee Iron deficiency anemia Dyslipidemia Port-A-Cath in place placed 12/2022 Adrenal insufficiency hospital stay 08/2023 Reversible airway obstruction Lesion of right [place] ureter History of recurrent UTI (urinary tract infection) Pulmonary nodules Interstitial lung disease Asthma Breast cancer Hydronephrosis of right kidney Osteoporosis Arthritis Aortic stenosis Hypertension DVT (deep venous thrombosis) Pulmonary embolism Obesity Surgical History History of cardiac catheterization 07/2023 no obstructive disease Hx of tubal ligation Hx of cystoscopy Hx of colonoscopy Age 65 Hx of cholecystectomy H/O: hysterectomy Hx of cataract surgery S/P tonsillectomy Family History Father , AT 92 Congestive heart failure (CHF) Mother , AT 100 of unknown cause Other CAD (coronary artery disease) Cancer Diabetes Hyperlipidemia Hypertension Stroke Denies family history of Psychiatric illness Chronic kidney disease (CKD) Suicide Family history of premature coronary artery disease Lung disease Social History Smoking and tobacco/nicotine status: never used tobacco/nicotine Alcohol intake: never Substance/Drug Use: never Marital status: / Current occupational status: retired and disabled Physical Exam 2 Const: GENERAL APPEARANCE: cooperative ORIENTATION/CONSCIOUSNESS: Yes awake, Yes oriented to person, Yes oriented to place and Yes oriented to time HENMT: COMMON NORMALS: normocephalic, atraumatic and hearing grossly normal bilaterally HEAD & SCALP: normocephalic and atraumatic Resp: COMMON NORMALS: normal respiratory effort, No retractions, No use of accessory muscles and clear to auscultation bilaterally AUSCULTATION: clear to auscultation bilaterally Cardio: COMMON NORMALS: regular rate, regular rhythm and No murmurs present (Cardio) RATE: regular rate RHYTHM: regular rhythm GI: COMMON NORMALS: Soft to palpation and No hepatosplenomegaly present A USCULTATION: Yes normoactive bowel sounds PALPATION: Yes Soft to palpation, No Tenderness to palpation present (GI), No Guarding due to palpation present (GI) and Yes No hepatosplenomegaly present Extremity: COMMON NORMALS: normal to inspection, capillary refill normal, no clubbing, cyanosis or edema, no calf tenderness and no pedal edema Neuro: SENSORIUM/ORIENTATION: Yes oriented to person, Yes oriented to place and Yes oriented to time Skin: COMMON NORMALS: no rashes or lesions noted GENERAL SKIN EXAM: no rashes or lesions noted Course 2 Vital Signs: Vital signs: Vital Signs Temperature 97.8 F 12/13/23 10:16 Pulse Rate 90 12/13/23 13:00 Respiratory Rate 19 H 12/13/23 13:00 Blood Pressure 141/91 12/13/23 13:00 Pulse Oximetry 96 12/13/23 13:00 Oxygen Delivery Me thod Room Air 12/13/23 10:16 MDM - Nausea/Vomiting/Diarrhea Medical Decision Making Patient has single episode of coffee-ground emesis hemoglobin is low but stable. No tachycardia. She needs to stay on her Eliquis due to DVT PE. Discussed with hospitalist will place on observation start Protonix keep n.p.o. consult general surgery Lab Data 12/13/23 10:30 12/13/23 10:30 Radiology Impressions Chest X-Ray 12/13/23 10:23 IMPRESSION: No acute cardiopulmonary abnormality. Abdomen/Pelvis CT 12/13/23 11:05 IMPRESSION: 1. No bowel obstruction or acute inflammation. 2. Mild bladder wall thickening is nonspecific. Recommend clinical correlation if there is concern for cystitis. Laboratory Results WBC 5.14 10^3/uL (3.29-11.43) 12/13/23 10:30 RBC 2.98 10^6/uL (3.85-5.65) L 12/13/23 10:30 Hgb 10.00 g/dL (11.27-16.99) L 12/13/23 10:30 Hct 31.4 % (36-47) L 12/13/23 10:30 MCV 105.4 fl (85-98) H 12/13/23 10:30 MCH 33.6 pg (27-33) H 12/13/23 10:30 MCHC 31.8 g/dL (30-55) 12/13/23 10:30 RDW 15.2 % (12.1-15.1) H 12/13/23 10:30 Plt Count 184 10^3/cmm (157-399) 12/13/23 10:30 MPV 9.5 fL (7.4-10.4) 12/13/23 10:30 Neut % (Auto) 66.0 % 12/13/23 10:30 Lymph % (Auto) 17.3 % 12/13/23 10:30 [place] % (Auto) 9.9 % 12/13/23 10:30 Eos % (Auto) 5.4 % 12/13/23 10:30 Baso % (Auto) 1.0 % 12/13/23 10:30 Neut # (Auto) 3.39 10^3/uL (1.8-7.7) 12/13/23 10:30 Lymph # (Auto) 0.9 10^3/uL (0.8-4.8) 12/13/23 10:30 [place] # (Auto) 0.5 10^3/uL (0.2-0.9) 12/13/23 10:30 Eos # (Auto) 0.3 10^3/uL (0.0-0.8) 12/13/23 10:30 Baso # (Auto) 0.1 10^3/uL (0.0-0.1) 12/13/23 10:30 Nucleated RBC % (auto) 0 % 12/13/23 10:30 Nucleated RBCs # 0.0 /100WBC 12/13/23 10:30 Sodium 133 mmol/L (136-145) L 12/13/23 10:30 Potassium 3.7 mmol/L (3.5-5.1) 12/13/23 10:30 Chloride 101 mmol/L (98-107) 12/13/23 10:30 Carbon Dioxide 21 mmol/L (22-29) L 12/13/23 10:30 Anion Gap 14.7 (5-19) 12/13/23 10:30 BUN 13 mg/dL (8-23) 12/13/23 10:30 Creatinine 0.9 mg/dL (0.5-0.9) 12/13/23 10:30 GFR Calculation Not Reportable 12/13/23 10:30 Glucose 94 mg/dL (65-115) 12/13/23 10:30 Calculated Osmolality 276 mOsm/kg (285-295) L 12/13/23 10:30 Calcium 9.8 mg/dL (8.5-10.5) 12/13/23 10:30 Total Bilirubin 0.5 mg/dL (0.15-1.2) 12/13/23 10:30 AST 21 U/L (0-32) 12/13/23 10:30 ALT 21 U/L (0-33) 12/13/23 10:30 Alkaline Phosphatase 77 U/L (35-105) 12/13/23 10:30 Total Protein 5.5 g/dL (6.6-8.7) L 12/13/23 10:30 Albumin 2.9 g/dL (3.5-5.2) L 12/13/23 10:30 Globulin 2.6 g/dL (1.3-4.6) 12/13/23 10:30 Lipase 9 U/L (13-60) L 12/13/23 10:30 Urine Color Dark yellow (Yellow) A 12/13/23 11:06 Urine Appearance Clear (CLEAR) 12/13/23 11:06 Urine pH 8.0 (5-7) A 12/13/23 11:06 Ur Specific [place] 1.019 (1.005-1.030) 12/13/23 11:06 Urine Protein Trace (Negative) A 12/13/23 11:06 Urine Glucose (UA) Negative (Normal) 12/13/23 11:06 Urine Ketones Trace (Negative) 12/13/23 11:06 Urine Blood Negative (Negative) 12/13/23 11:06 Urine Nitrate Negative (Negative) 12/13/23 11:06 Urine Bilirubin Negative (Negative) 12/13/23 11:06 Urine Urobilinogen 1.0 mg/dL (Negative) 12/13/23 11:06 Ur Leukocyte Esterase Trace (Negative) A 12/13/23 11:06 Urine RBC 0-2 /hpf (0-2) 12/13/23 11:06 Urine WBC 0-5 /hpf (0-5) 12/13/23 11:06 Ur Squamous Epith Cells 6-10 /hpf (0-5) 12/13/23 11:06 Uric Acid Crystals 10-15 /hpf H 12/13/23 11:06 Amorphous Sediment Not Reportable 12/13/23 11:06 Urine Bacteria None seen /hpf (NONE) 12/13/23 11:06 Hyaline Casts 0-4 /lpf H 12/13/23 11:06 All radiology interpretation(s) finalized by discharge Discharge Plan Discharge Patient Disposition: Placed in Observation Clinical Impression: Acute upper GI bleed Condition: Stable Prescriptions: No Action diphenhydramine HCl [Benadryl] 25 mg capsule 25 mg PO TID PRN (Reason: Itching) vitamin B complex [B Complex-Vitamin B12] Tablet 1 tab PO DAILY calcium carb,lactat-vitamin D3 200 mg calcium -250 unit tablet 1 tab PO QAM meclizine 25 mg tablet 25 mg PO TID PRN (Reason: Dizziness) multivitamin Tablet 1 tab PO DAILY tolterodine 4 mg capsule,extended release 24hr 4 mg PO DAILY red yeast rice 600 mg capsule 600 mg PO BID Rx Instructions: give with meal/snack potassium chloride 10 mEq capsule, extended release 10 meq PO DAILY Prolia 60 mg/mL syringe 60 mg SUBCUT Q6M cyanocobalamin (vitamin B-12) 2,500 mcg tablet 2,500 mcg PO DAILY vitamin E mixed 1,000 unit capsule 4,000 unit PO DAILY selenium 50 mcg tablet 50 mcg PO DAILY (DME) Nebulizer and accessory kit See Rx Instructions .Route .MEDSUPPLY Qty: 1 0RF Patient Comments: Patient states that they do not have the machine. Rx Instructions: As directed (DME) custom inserts See Rx Instructions .Route .MEDSUPPLY Qty: 1 0RF Rx Instructions: As directed lidocaine-prilocaine 2.5-2.5 % cream 1 applic topical DAILY PRN (Reason: inflammation and pain) ondansetron 4 mg tablet,disintegrating 4 mg PO Q6H PRN (Reason: nausea and vomiting) Qty: 20 0RF diphenoxylate-atropine [Lomotil] 2.5-0.025 mg tablet 1 tab PO BID PRN (Reason: diarrhea) Qty: 10 0RF Eliquis 5 mg tablet 5 mg PO BID Qty: 60 0RF docusate sodium [Colace] 100 mg Capsule 100 mg PO BID pantoprazole 40 mg Tablet,Delayed Release (Dr/Ec) 40 mg PO DAILY Qty: 30 0RF fluoxetine 40 mg capsule 40 mg PO DAILY lorazepam 0.5 mg tablet 0.5 mg PO DAILY levothyroxine 112 mcg tablet 112 mcg PO DAILY benzonatate 100 mg capsule 200 mg PO TID PRN (Reason: Cough) Tylenol 325 mg capsule 325 mg PO Q6H PRN (Reason: Pain) ipratropium-albuterol 0.5 mg-3 mg(2.5 mg base)/3 mL Solution For Nebulization 3 ml inhalation Q6H.RESP Qty: 180 2RF budesonide 0.5 mg/2 mL Suspension For Nebulization 0.5 mg inhalation BID.RESPIRATORY Qty: 60 0RF prednisone 10 mg tablet See Taper PO DIRECTED Qty: 100 0RF Taper: predniSONE 60-10 40 mg Daily for 7 Days and 0 Hour 30 mg Daily for 7 Days and 0 Hour 20 mg Daily for 7 Days and 0 Hour 10 mg Daily for 30 Days and 0 Hour Bactrim DS 800-160 mg tablet 1 tab PO .Three times a week Qty: 60 0RF Rx Instructions: Prophylaxis as on high dose steroids Referrals: Sácnhez Macario [Primary Care Provider] - Coding Level of Care Code ED Ticket Agent for Malu Cooper
--- NOTE | 2023-12-13 10:50 | ECG_ITS ---
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 Measurements Intervals [place] Rate: 84 P: 42 MO: 153 QRS: 3 QRSD: 90 T: 37 QT: 384 QTc: 455 Interpretive Statements SINUS RHYTHM Compared to ECG 12/08/2023 17:54:14 No significant changes Electronically Signed On 12-13-2023 18:47:35 CDT by Ryann Boo M.D. [id number]
[2023-12-13 10:55] LABS: Alanine Aminotransferase 21 U/L (0-33); Albumin Level 2.9 g/dL (3.5-5.2); Alkaline Phosphatase 77 U/L (35-105); Anion Gap 14.7 (5-19); Aspartate Amino Transferase 21 U/L (0-32); Blood Urea Nitrogen 13 mg/dL (8-23); Calcium 9.8 mg/dL (8.5-10.5); Carbon Dioxide 21 mmol/L (22-29); Chloride 101 mmol/L (98-107); Creatinine Clr Calc Pharmacy 56.3118; Globulin 2.6 g/dL (1.3-4.6); Glucose 94 mg/dL (65-115); Lipase 9 U/L (13-60); Osmolality Calculated 276 mOsm/kg (285-295); Potassium 3.7 mmol/L (3.5-5.1); Sodium 133 mmol/L (136-145); Total Bilirubin 0.5 mg/dL (0.15-1.2); Total Protein 5.5 g/dL (6.6-8.7)
--- NOTE | 2023-12-13 11:05 | CTR_ITS ---
PROCEDURE INFORMATION: Exam: CT Abdomen And Pelvis With Contrast Exam date and time: 12/13/2023 11:23 AM Age: 83 years old Clinical indication: Abdominal pain; Generalized; Additional info: Abd pain TECHNIQUE: Imaging protocol: Computed tomography of the abdomen and pelvis with contrast. Radiation optimization: All CT scans at this facility use at least one of these dose optimization techniques: automated exposure control; mA and/or kV adjustment per patient size (includes targeted exams where dose is matched to clinical indication); or iterative reconstruction. Contrast material: OMNIPAQUE 350; Contrast volume: 100 ml; Contrast route: INTRAVENOUS (IV); COMPARISON: CT abdomen pelvis w con* [id number] 09/05/2023 4:16 PM RADIATION DOSE METRICS: Total DLP (mGy-cm): 957.16 FINDINGS: Lungs: Few 2-6 mm nodules in the right lower lobe. Characterized as benign on prior study with recommendation of no further follow-up needed. Heart size upper limits of normal. Liver: Normal. No mass. Gallbladder and biliary ducts: Prior cholecystectomy. Pancreas: Normal. No ductal dilation. Spleen: Normal. No splenomegaly. Adrenal glands: Normal. No mass. Kidneys and ureters: Normal. No hydronephrosis. Stomach and bowel: No bowel obstruction or acute inflammation. Mild fibrofatty appearance of the ascending colon suggestive of prior colitis. Appendix: No evidence of appendicitis. Intraperitoneal space: Unremarkable. No free air. No significant fluid collection. Vasculature: Unremarkable. No abdominal aortic aneurysm. Lymph nodes: Unremarkable. No enlarged lymph nodes. Urinary bladder: Mild circumferential bladder wall thickening. No distinct perivesicular stranding.. Reproductive: Unremarkable as visualized. Bones/joints: Unremarkable. No acute fracture. Soft tissues: Unremarkable. CT/CT abdomen pelvis w con* [id number] IMPRESSION: 1. No bowel obstruction or acute inflammation. 2. Mild bladder wall thickening is nonspecific. Recommend clinical correlation if there is concern for cystitis.
[2023-12-13 11:14] LABS: Charge for UA Resulting for Rev
[2023-12-13 11:19] LABS: Bilirubin Urine Negative (Negative); Blood Urine Negative (Negative); Glucose Urine UA Negative (Normal); Ketones Urine Trace (Negative); Leukocyte Esterase Urine Trace (Negative); Nitrate Urine Negative (Negative); Protein Urine Trace (Negative); Specific Gravity, Urine 1.019 (1.005-1.030); Urine Appearance Clear (CLEAR); Urine Color Dark Yellow (Yellow)
[2023-12-13 11:25] LABS: Bacteria Urine None Seen /hpf; Hyaline Casts Urine 0-4 /lpf; RBC Urine 0-2 /hpf (0-2); WBC Urine 0-5 /hpf (0-5)
[2023-12-13] MEDS: iohexol 350 mg/mL 500 mL Btl (per mL) IV (11:27)
[2023-12-13 11:36] LABS: UA Slide Review UA Slide Review Perf
[2023-12-13 11:38] LABS: Add Urine Culture? No
--- NOTE | 2023-12-13 12:42 | P.HP_ITS ---
Providers/Chief Complaint 2 Primary Care Provider: Sánchez Macario Chief Complaint: N/V History of Present Illness Janet Calvillo is a 83 year old female with a past medical history significant for severe aortic stenosis, invasive ductal carcinoma of left breast, heart failure with preserved ejection fraction, adrenal insufficiency on chronic steroids, and multiple other comorbidities who presented with nausea and vomiting. Patient reports onset this morning. She describes her vomit as coffee-ground emesis. She reports that she is on apixaban for history of DVT/PE. She was endorses associated decreased appetite since yesterday. Denies any chest pain, abdominal pain, fevers or chills. Denies alleviating or aggravating factors. She denies any NSAID use or alcohol abuse. Denies prior EGD. Review of Systems 2 Narrative: A complete review of systems was obtained and is negative except as stated in HPI. Medications/Allergies Home Medications Medication Instructions Recorded Confirmed Last Taken Type calcium carb and lactate 200 1 tab PO QAM 12/28/19 12/08/23 12/07/23 History mg-vitamin D3 6.25 mcg (250 unit) tablet diphenhydramine HCl 25 mg capsule 25 mg PO TID PRN Itching 12/28/19 12/08/23 12/24/22 History (Benadryl) meclizine 25 mg tablet 25 mg PO TID PRN Dizziness 12/28/19 12/08/23 09/04/23 History multivitamin 1 tab PO DAILY 12/28/19 12/08/23 12/07/23 History potassium chloride 10 mEq 10 meq PO DAILY 12/28/19 12/08/23 12/07/23 History capsule,extended release red yeast rice 600 mg capsule 600 mg PO BID 12/28/19 12/08/23 12/07/23 History tolterodine 4 mg capsule,extended 4 mg PO DAILY 12/28/19 12/08/23 12/07/23 History release 24 hr vitamin B complex (B 1 tab PO DAILY 12/28/19 12/08/23 12/07/23 History Complex-Vitamin B12 tablet) denosumab 60 mg/mL subcutaneous 60 mg SUBCUT Q6M 06/26/20 12/08/23 08/06/23 06:00 History syringe (Prolia) cyanocobalamin (vitamin B-12) 2,500 mcg PO DAILY 03/12/08/23 12/07/23 History 2,500 mcg tablet vitamin E mixed 1,000 unit capsule 4,000 unit PO DAILY 07/19/21 12/08/23 12/07/23 History Nebulizer and accessory kit #1 ea 02/05/23 12/08/23 Unknown Rx selenium 50 mcg tablet 50 mcg PO DAILY 02/05/23 12/08/23 12/07/23 History lidocaine-prilocaine 2.5 %-2.5 % 1 applic topical DAILY PRN 07/23/23 12/08/23 09/04/23 History topical cream inflammation and pain custom inserts #1 ea 08/06/23 12/08/23 Unknown Rx diphenoxylate-atropine 2.5 1 tab PO BID PRN diarrhea #10 tabs 08/30/23 12/08/23 09/02/23 Rx mg-0.025 mg tablet (Lomotil) ondansetron 4 mg disintegrating 4 mg PO Q6H PRN nausea and 08/30/23 12/08/23 09/04/23 Rx tablet vomiting #20 tabs apixaban 5 mg tablet (Eliquis) 5 mg PO BID #60 tabs 09/11/23 12/08/23 12/07/23 Rx docusate sodium 100 mg capsule 100 mg PO BID 11/12/23 12/08/23 12/07/23 History (Colace) pantoprazole 40 mg tablet,delayed 40 mg PO DAILY #30 tabs 11/18/23 12/08/23 12/07/23 Rx release acetaminophen 325 mg capsule 325 mg PO Q6H PRN Pain 12/08/23 12/08/23 Unknown History (Tylenol) benzonatate 100 mg capsule 200 mg PO TID PRN Cough 12/08/23 12/08/23 Unknown History fluoxetine 40 mg capsule 40 mg PO DAILY 12/08/23 12/08/23 12/07/23 History levothyroxine 112 mcg tablet 112 mcg PO DAILY 12/08/23 12/08/23 12/07/23 History lorazepam 0.5 mg tablet 0.5 mg PO DAILY 12/08/23 12/08/23 12/07/23 History budesonide 0.5 mg/2 mL suspension 0.5 mg (2 mL) inhalation 12/09/23 Unknown Rx for nebulization BID.RESPIRATORY #60 mL ipratropium 0.5 mg-albuterol 3 mg 3 ml inhalation Q6H.RESP #180 mL 12/09/23 Unknown Rx (2.5 mg base)/3 mL nebulization soln prednisone 10 mg tablet See Taper PO DIRECTED #100 tabs 12/09/23 12/08/23 12/07/23 Rx sulfamethoxazole 800 1 tab PO .Three times a week #60 12/09/23 Unknown Rx mg-trimethoprim 160 mg tablet tabs (Bactrim DS) Allergies Allergy/AdvReac Type Severity Reaction Status Date / Time tetanus toxoid, adsorbed Allergy Severe unknown Verified 10/31/23 11:54 ciprofloxacin [From Cipro] Allergy Unknown ADR-Vomitin Verified 10/31/23 11:54 g erythromycin base Allergy Unknown ADR-Vomitin Verified 10/31/23 11:54 g gabapentin [From Neurontin] Allergy Unknown unknown Verified 10/31/23 11:54 hydrocodone [From Vicodin] Allergy Unknown unknown Verified 10/31/23 11:54 Influenza Virus Vaccines Allergy Unknown unknown Verified 10/31/23 11:54 tramadol [From Ultram] Allergy Unknown unknown Verified 10/31/23 11:54 aspirin Allergy stomach Verified 10/31/23 11:54 pain, unbearable egg Allergy unknown Verified 10/31/23 11:54 Fish Containing Products Allergy ALGY-Rash Verified 11/14/23 17:26 NSAIDS (Non-Steroidal Allergy heartburn, Verified 10/31/23 11:54 Anti-Inflamma stomach pain Tetanus Vaccines and Toxoid Allergy unknown Verified 10/31/23 11:54 adhesive AdvReac Unknown unknown Verified 10/31/23 11:54 PFSH Acute 2 PFSH: Medical History 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 Hypothyroidism COVID-2021 History of echocardiogram 06/2023 EF 60%, Grade I/IV diastolic dysfunction, severe AV stenosis 0.99, mean gradient 40.2 mmHg, peak velocity 4.19 ms 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 Primary osteoarthritis of left knee Iron deficiency anemia Dyslipidemia Port-A-Cath in place placed 12/2022 Adrenal insufficiency hospital stay 08/2023 Reversible airway obstruction Lesion of right [place] ureter History of recurrent UTI (urinary tract infection) Pulmonary nodules Interstitial lung disease Asthma Breast cancer Hydronephrosis of right kidney Osteoporosis Arthritis Aortic stenosis Hypertension DVT (deep venous thrombosis) Pulmonary embolism Obesity Surgical History History of cardiac catheterization 07/2023 no obstructive disease Hx of tubal ligation Hx of cystoscopy Hx of colonoscopy Age 65 Hx of cholecystectomy H/O: hysterectomy Hx of cataract surgery S/P tonsillectomy Family History Father , AT 92 Congestive heart failure (CHF) Mother , AT 100 of unknown cause Other CAD (coronary artery disease) Cancer Diabetes Hyperlipidemia Hypertension Stroke Denies family history of Psychiatric illness Chronic kidney disease (CKD) Suicide Family history of premature coronary artery disease Lung disease Social History Smoking and tobacco/nicotine status: never used tobacco/nicotine Alcohol intake: never Substance/Drug Use: never Marital status: / Current occupational status: retired and disabled Vitals/I&O/Wt Last Vital Signs Temp 97.8 F 12/13/23 10:16 Pulse 83 12/13/23 10:55 Resp 14 12/13/23 10:55 BP 103/74 12/13/23 10:55 Pulse Ox 96 12/13/23 10:55 O2 Del Method Room Air 12/13/23 10:16 Weight last 48 hrs Weight 99.337 kg Physical Exam 2 Narrative: General: Patient is awake and alert. Very pleasant. Head: Normocephalic. Atraumatic. EOM intact. Dry mucous membranes. Neck: No JVD. Cardiovascular: RRR. No gallops. 4+ systolic ejection murmur. Nonpitting bilateral lower extremity edema. Lungs: Clear to auscultation, no use of accessory muscles, no crackles or wheezes. Skin: No jaundice. No rashes. Abdomen: Normal bowel sounds, abdomen soft and nontender. Genito Urinary: Genital exam not performed since complaints not related. Rectal: Rectal exam not performed since no symptoms indicated blood loss. Extremities: No cyanosis or clubbing. Musculoskeletal: 5/5 strength, normal range of motion, no swollen or erythematous joints. Neurological: Moves all 4 extremities. No myoclonus. Data 12/13/23 10:30 12/13/23 10:30 A&P Assessment and plan (1) Acute upper GI bleed: Nausea and vomiting with coffee-ground emesis consistent with a acute upper GI bleed Hold apixaban Start IV PPI Continuous telemetry monitoring Antiemetics as needed Start clear liquid diet, advance as tolerated Trend labs (2) Urinary tract infection: Urinalysis consistent with UTI Start Rocephin (3) Severe aortic valve stenosis: Patient reports she is going to follow-up in [place] to schedule her TAVR (4) Hypertension: Monitor blood pressure (5) DVT (deep venous thrombosis): Hold apixaban due to hematemesis Qualifiers: DVT location: lower extremity Affected thrombotic vein of extremity: u nspecified lower extremity proximal vein Chronicity: chronic Laterality: b ilateral Qualified Code(s): I82.5Y3 - Chronic embolism and thrombosis of unspecified deep veins of proximal lower extremity, bilateral (6) Adrenal insufficiency: Continue home steroids (7) Breast CA: Continue outpatient follow-up Qualifiers: Breast location: nipple Estrogen receptor status: negative Patient sex: female Laterality: left Qualified Code(s): C50.012 - Malignant neoplasm of nipple and areola, left female breast; Z17.1 - Estrogen receptor negative status [ER-] Plan DVT prophylaxis: SCD Attestations 2 Medical Necessity Statement*: Patient presents with hematemesis in the setting of apixaban treatment with expected hospitalization not to cross 2 midnights for serial exams, serial labs, IV PPI treatment, telemetry, and supportive care. 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
[2023-12-13] MEDS: pantoprazole 40 mg SDV 80 MG IVP (13:10)
--- NOTE | 2023-12-13 14:41 | PC.NURSE ---
report called to TAYLER Collazo on Med-Surg, no further questions at end of report.
[2023-12-13] MEDS: pantoprazole 40 mg SDV IVP (15:50)
[2023-12-13] MEDS: sodium chloride 0.9% 1,000 ML 100 ML IV (15:51)
[2023-12-13] MEDS: water for injection-sterile 10 ML 240 ML (17:40)
[2023-12-13] MEDS: cefTRIAXone 1,000 mg SDV 1000 MG IVP (17:40)
[2023-12-14] VITALS (12 sets, daily range): BP systolic 102–120; BP diastolic 55–73; PULSE 88–102; RESP 16–20; TEMP 36.4–36.9; O2SAT 92–99
[2023-12-14] MEDS: pantoprazole 40 mg SDV IVP (03:30)
[2023-12-14 04:21] LABS: Basophils % 0.7 %; Eosinophils # 0.2 10^3/uL (0.0-0.8); Eosinophils % 5.6 %; Hematocrit 28.8 % (36-47); Lymphocytes # 0.7 10^3/uL (0.8-4.8); Lymphocytes % 17.4 %; Mean Corpuscular HGB Conc 31.6 g/dL (30-55); Mean Corpuscular Hemoglobin 33.2 pg (27-33); Mean Corpuscular Volume 105.1 fl (85-98); Mean Platelet Volume 9.8 fL (7.4-10.4); Monocytes # 0.5 10^3/uL (0.2-0.9); Monocytes % 11.4 %; Neutrophils # 2.67 10^3/uL (1.8-7.7); Neutrophils % 64.7 %; Nucleated Red Blood Cells % 0 %; Platelet Count 174 10^3/cmm (157-399); Red Blood Count 2.74 10^6/uL (3.85-5.65); White Blood Count 4.13 10^3/uL (3.29-11.43)
[2023-12-14 04:58] LABS: Anion Gap 13.8 (5-19); Blood Urea Nitrogen 8 mg/dL (8-23); Calcium 9.3 mg/dL (8.5-10.5); Carbon Dioxide 23 mmol/L (22-29); Chloride 104 mmol/L (98-107); Glucose 85 mg/dL (65-115); Magnesium 1.9 mg/dL (1.7-2.3); Osmolality Calculated 282 mOsm/kg (285-295); Potassium 3.8 mmol/L (3.5-5.1); Sodium 137 mmol/L (136-145)
[2023-12-14] MEDS: levothyroxine 112 mcg Tablet PO (06:25)
[2023-12-14] MEDS: ipratropium-albuterol 3 mL Neb INHALATION ×2 (07:21→13:37)
--- NOTE | 2023-12-14 08:03 | ANES.PREANE2 ---
Pre-Anesthetic Assessment Height/Weight: Height 1.68 m Weight 108.272 kg Temp Pulse Resp BP Pulse Ox O2 Del Method 97.8 F 90 17 102/56 94 Room Air 12/14/23 04:00 12/14/23 07:26 12/14/23 07:18 12/14/23 04:00 12/14/23 07:18 12/14/23 07:18 Operation Date: 12/14/23 08:20 Proposed Procedures p EGD(Not Applicable) - Anibal Hernandez, DO Was Beta Sixto taken within 24 hours: N/A Last intake: Intake Last Liquid Date 12/13/23 Last Liquid Time 19:00 Social No alcohol and No tobacco Exam alert, oriented x 3, clear to auscultation bilaterally and regular rate & rhythm (4/6 Systolic murmur ) Airway Submandibular: within normal limits Cervical ROM: Other (limited) Mallampati: Class II Pulmonary Exertional Dyspnea, Othopnea and Shortness of Breath CV/HEM Deep Vein Thrombosis, Hypertension and Murmur (known severe aortic stenosis ) Metabolic Hyperlipidemia, Morbid Obesity and Thyroid Disease (Hypothyroidism ) [place]renal [place] [facility] [place] Osteoarthritis/DJD Anesthetic Plan ASA status: 4E Anesthesia: General and MAC Other: Stress dose steroids (Solucortef 50mg IV) Medications/Allergies Home Medications Medication Instructions Recorded Confirmed Last Taken Type calcium carb and lactate 200 1 tab PO QAM 12/28/19 12/08/23 12/07/23 History mg-vitamin D3 6.25 mcg (250 unit) tablet diphenhydramine HCl 25 mg capsule 25 mg PO TID PRN Itching 12/28/19 12/08/23 12/24/22 History (Benadryl) meclizine 25 mg tablet 25 mg PO TID PRN Dizziness 12/28/19 12/08/23 09/04/23 History multivitamin 1 tab PO DAILY 12/28/19 12/08/23 12/07/23 History potassium chloride 10 mEq 10 meq PO DAILY 12/28/19 12/08/23 12/07/23 History capsule,extended release red yeast rice 600 mg capsule 600 mg PO BID 12/28/19 12/08/23 12/07/23 History tolterodine 4 mg capsule,extended 4 mg PO DAILY 12/28/19 12/08/23 12/07/23 History release 24 hr vitamin B complex (B 1 tab PO DAILY 12/28/19 12/08/23 12/07/23 History Complex-Vitamin B12 tablet) denosumab 60 mg/mL subcutaneous 60 mg SUBCUT Q6M 06/26/20 12/08/23 08/06/23 06:00 History syringe (Prolia) cyanocobalamin (vitamin B-12) 2,500 mcg PO DAILY 07/19/21 12/08/23 12/07/23 History 2,500 mcg tablet vitamin E mixed 1,000 unit capsule 4,000 unit PO DAILY 07/19/21 12/08/23 12/07/23 History Nebulizer and accessory kit #1 ea 02/05/23 12/08/23 Unknown Rx selenium 50 mcg tablet 50 mcg PO DAILY 02/05/23 12/08/23 12/07/23 History lidocaine-prilocaine 2.5 %-2.5 % 1 applic topical DAILY PRN 07/23/23 12/08/23 09/04/23 History topical cream inflammation and pain custom inserts #1 ea 08/06/23 12/08/23 Unknown Rx diphenoxylate-atropine 2.5 1 tab PO BID PRN diarrhea #10 tabs 08/30/23 12/08/23 09/02/23 Rx mg-0.025 mg tablet (Lomotil) ondansetron 4 mg disintegrating 4 mg PO Q6H PRN nausea and 08/30/23 12/08/23 09/04/23 Rx tablet vomiting #20 tabs apixaban 5 mg tablet (Eliquis) 5 mg PO BID #60 tabs 09/11/23 12/08/23 12/07/23 Rx docusate sodium 100 mg capsule 100 mg PO BID 11/12/23 12/08/23 12/07/23 History (Colace) pantoprazole 40 mg tablet,delayed 40 mg PO DAILY #30 tabs 11/18/23 12/08/23 12/07/23 Rx release acetaminophen 325 mg capsule 325 mg PO Q6H PRN Pain 12/08/23 12/08/23 Unknown History (Tylenol) benzonatate 100 mg capsule 200 mg PO TID PRN Cough 12/08/23 12/08/23 Unknown History fluoxetine 40 mg capsule 40 mg PO DAILY 12/08/23 12/08/23 12/07/23 History levothyroxine 112 mcg tablet 112 mcg PO DAILY 12/08/23 12/08/23 12/07/23 History lorazepam 0.5 mg tablet 0.5 mg PO DAILY 12/08/23 12/08/23 12/07/23 History budesonide 0.5 mg/2 mL suspension 0.5 mg (2 mL) inhalation 12/09/23 Unknown Rx for nebulization BID.RESPIRATORY #60 mL ipratropium 0.5 mg-albuterol 3 mg 3 ml inhalation Q6H.RESP #180 mL 12/09/23 Unknown Rx (2.5 mg base)/3 mL nebulization soln prednisone 10 mg tablet See Taper PO DIRECTED #100 tabs 12/09/23 12/08/23 12/07/23 Rx sulfamethoxazole 800 1 tab PO .Three times a week #60 12/09/23 Unknown Rx mg-trimethoprim 160 mg tablet tabs (Bactrim DS) Allergies Allergy/AdvReac Type Severity Reaction Status Date / Time tetanus toxoid, adsorbed Allergy Severe unknown Verified 10/31/23 11:54 ciprofloxacin [From Cipro] Allergy Unknown ADR-Vomitin Verified 10/31/23 11:54 g erythromycin base Allergy Unknown ADR-Vomitin Verified 10/31/23 11:54 g gabapentin [From Neurontin] Allergy Unknown unknown Verified 10/31/23 11:54 hydrocodone [From Vicodin] Allergy Unknown unknown Verified 10/31/23 11:54 Influenza Virus Vaccines Allergy Unknown unknown Verified 10/31/23 11:54 tramadol [From Ultram] Allergy Unknown unknown Verified 10/31/23 11:54 aspirin Allergy stomach Verified 10/31/23 11:54 pain, unbearable egg Allergy unknown Verified 10/31/23 11:54 Fish Containing Products Allergy ALGY-Rash Verified 11/14/23 17:26 NSAIDS (Non-Steroidal Allergy heartburn, Verified 10/31/23 11:54 Anti-Inflamma stomach pain Tetanus Vaccines and Toxoid Allergy unknown Verified 10/31/23 11:54 adhesive AdvReac Unknown unknown Verified 10/31/23 11:54 Current Medications Generic Name Dose Route Start Last Admin Trade Name Freq PRN Reason Stop Dose Admin Albuterol/Ipratropium 3 ml 12/13/23 16:25 12/14/23 07:21 Ipratropium-Albuterol 3 Ml Neb INHALATION 3 ml Q4H PRN Administration SHORTNESS OF BREATH Ceftriaxone Sodium 1,000 mg 12/13/23 16:30 12/13/23 17:40 Ceftriaxone 1,000 Mg Sdv IVP 1,000 mg Q24H GREGORIO Administration Protocol Levothyroxine Sodium 112 mcg 12/14/23 06:00 12/14/23 06:25 Levothyroxine 112 Mcg Tablet PO 112 mcg QAM GREGORIO Administration Pantoprazole Sodium 40 mg 12/13/23 15:03 12/14/23 03:30 Pantoprazole 40 Mg Sdv IVP 40 mg Q12H GREGORIO Administration PFSH Anesthesia Medical History 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 Hypothyroidism COVID-2021 History of echocardiogram 06/2023 EF 60%, Grade I/IV diastolic dysfunction, severe AV stenosis 0.99, mean gradient 40.2 mmHg, peak velocity 4.19 ms 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 Primary osteoarthritis of left knee Iron deficiency anemia Dyslipidemia Port-A-Cath in place placed 12/2022 Adrenal insufficiency hospital stay 08/2023 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 History of recurrent UTI (urinary tract infection) Pulmonary nodules Interstitial lung disease Asthma Breast cancer Hydronephrosis of right kidney Osteoporosis Arthritis Aortic stenosis Hypertension DVT (deep venous thrombosis) Pulmonary embolism Obesity Surgical History History of cardiac catheterization 07/2023 no obstructive disease Hx of tubal ligation Hx of cystoscopy Hx of colonoscopy Age 65 Hx of cholecystectomy H/O: hysterectomy Hx of cataract surgery S/P tonsillectomy Family History Father , AT 92 Congestive heart failure (CHF) Mother , AT 100 of unknown cause Other CAD (coronary artery disease) Cancer Diabetes Hyperlipidemia Hypertension Stroke Denies family history of Psychiatric illness Chronic kidney disease (CKD) Suicide Family history of premature coronary artery disease Lung disease Social History Smoking and tobacco/nicotine status: never used tobacco/nicotine Alcohol intake: never Substance/Drug Use: never Marital status: / Current occupational status: retired and disabled Data Anesthesia 12/14/23 03:28 12/14/23 03:28 Short CBC 12/13/23 12/14/23 Range/Units 10:30 03:28 WBC 5.14 4.13 (3.29-11.43) 10^3/uL Hgb 10.00 L 9.10 L (11.27-16.99) g/dL Hct 31.4 L 28.8 L (36-47) % MCV 105.4 H 105.1 H (85-98) fl Plt Count 184 174 (157-399) 10^3/cmm Neut % (Auto) 66.0 64.7 % Neut # (Auto) 3.39 2.67 (1.8-7.7) 10^3/uL BMP 12/13/23 12/14/23 10:30 03:28 Sodium 133 L 137 Potassium 3.7 3.8 Chloride 101 104 Carbon Dioxide 21 L 23 BUN 13 8 Creatinine 0.9 0.7 Glucose 94 85 Calcium 9.8 9.3 Liver Function 12/13/23 Range/Units 10:30 Total Bilirubin 0.5 (0.15-1.2) mg/dL AST 21 (0-32) U/L ALT 21 (0-33) U/L Alkaline Phosphatase 77 (35-105) U/L Albumin 2.9 L (3.5-5.2) g/dL Urine 12/13/23 Range/Units 11:06 Urine Color Dark yellow A (Yellow) Urine Appearance Clear (CLEAR) Urine pH 8.0 A (5-7) Ur Specific [place] 1.019 (1.005-1.030) Urine Protein Trace A (Negative) Urine Glucose (UA) Negative (Normal) Urine Ketones Trace (Negative) Urine Nitrate Negative (Negative) Urine Bilirubin Negative (Negative) Ur Leukocyte Esterase Trace A (Negative) Urine RBC 0-2 (0-2) /hpf Urine WBC 0-5 (0-5) /hpf Cardiac Studies: Echocardiogram 06/20/23 Echocardiogram Ultrasound 10/06/20
--- NOTE | 2023-12-14 08:19 | P.CONIM_ITS ---
Providers/Reason For Consult 2 Consulting Physician/Specialty*: Dr. Anibal Hernandez, DO/General Surgery Reason for Consult*: Hematemesis Attending Physician: Carlos Juarez MD Primary Care Provider: Sánchez Macario History of Present Illness History of Present Illness Janet Calvillo is a 83 year old female, with past medical history that includes severe aortic stenosis and DVT on apixaban, who presents to the hospital after having coffee-ground emesis. She has not taken her Eliquis for a week. She denies any abdominal pain, diarrhea, constipation, hematochezia and/or melena. Review of Systems 2 General: Reports: 10 or more systems reviewed and unremarkable except in HPI and below Medications/Allergies Home Medications Medication Instructions Recorded Confirmed Last Taken Type calcium carb and lactate 200 1 tab PO QAM 12/28/19 12/08/23 12/07/23 History mg-vitamin D3 6.25 mcg (250 unit) tablet diphenhydramine HCl 25 mg capsule 25 mg PO TID PRN Itching 12/28/19 12/08/23 12/24/22 History (Benadryl) meclizine 25 mg tablet 25 mg PO TID PRN Dizziness 12/28/19 12/08/23 09/04/23 History multivitamin 1 tab PO DAILY 12/28/19 12/08/23 12/07/23 History potassium chloride 10 mEq 10 meq PO DAILY 12/28/19 12/08/23 12/07/23 History capsule,extended release red yeast rice 600 mg capsule 600 mg PO BID 12/28/19 12/08/23 12/07/23 History tolterodine 4 mg capsule,extended 4 mg PO DAILY 12/28/19 12/08/23 12/07/23 History release 24 hr vitamin B complex (B 1 tab PO DAILY 12/28/19 12/08/23 12/07/23 History Complex-Vitamin B12 tablet) denosumab 60 mg/mL subcutaneous 60 mg SUBCUT Q6M 06/26/20 12/08/23 08/06/23 06:00 History syringe (Prolia) cyanocobalamin (vitamin B-12) 2,500 mcg PO DAILY 07/19/21 12/08/23 12/07/23 History 2,500 mcg tablet vitamin E mixed 1,000 unit capsule 4,000 unit PO DAILY 0312/08/23 12/07/23 History Nebulizer and accessory kit #1 ea 02/05/23 12/08/23 Unknown Rx selenium 50 mcg tablet 50 mcg PO DAILY 02/05/23 12/08/23 12/07/23 History lidocaine-prilocaine 2.5 %-2.5 % 1 applic topical DAILY PRN 07/23/23 12/08/23 09/04/23 History topical cream inflammation and pain custom inserts #1 ea 08/06/23 12/08/23 Unknown Rx diphenoxylate-atropine 2.5 1 tab PO BID PRN diarrhea #10 tabs 08/30/23 12/08/23 09/02/23 Rx mg-0.025 mg tablet (Lomotil) ondansetron 4 mg disintegrating 4 mg PO Q6H PRN nausea and 08/30/23 12/08/23 09/04/23 Rx tablet vomiting #20 tabs apixaban 5 mg tablet (Eliquis) 5 mg PO BID #60 tabs 09/11/23 12/08/23 12/07/23 Rx docusate sodium 100 mg capsule 100 mg PO BID 11/12/23 12/08/23 12/07/23 History (Colace) pantoprazole 40 mg tablet,delayed 40 mg PO DAILY #30 tabs 11/18/23 12/08/23 12/07/23 Rx release acetaminophen 325 mg capsule 325 mg PO Q6H PRN Pain 12/08/23 12/08/23 Unknown History (Tylenol) benzonatate 100 mg capsule 200 mg PO TID PRN Cough 12/08/23 12/08/23 Unknown History fluoxetine 40 mg capsule 40 mg PO DAILY 12/08/23 12/08/23 12/07/23 History levothyroxine 112 mcg tablet 112 mcg PO DAILY 12/08/23 12/08/23 12/07/23 History lorazepam 0.5 mg tablet 0.5 mg PO DAILY 12/08/23 12/08/23 12/07/23 History budesonide 0.5 mg/2 mL suspension 0.5 mg (2 mL) inhalation 12/09/23 Unknown Rx for nebulization BID.RESPIRATORY #60 mL ipratropium 0.5 mg-albuterol 3 mg 3 ml inhalation Q6H.RESP #180 mL 12/09/23 Unknown Rx (2.5 mg base)/3 mL nebulization soln prednisone 10 mg tablet See Taper PO DIRECTED #100 tabs 12/09/23 12/08/23 12/07/23 Rx sulfamethoxazole 800 1 tab PO .Three times a week #60 12/09/23 Unknown Rx mg-trimethoprim 160 mg tablet tabs (Bactrim DS) Allergies Allergy/AdvReac Type Severity Reaction Status Date / Time tetanus toxoid, adsorbed Allergy Severe unknown Verified 10/31/23 11:54 ciprofloxacin [From Cipro] Allergy Unknown ADR-Vomitin Verified 10/31/23 11:54 g erythromycin base Allergy Unknown ADR-Vomitin Verified 10/31/23 11:54 g gabapentin [From Neurontin] Allergy Unknown unknown Verified 10/31/23 11:54 hydrocodone [From Vicodin] Allergy Unknown unknown Verified 10/31/23 11:54 Influenza Virus Vaccines Allergy Unknown unknown Verified 10/31/23 11:54 tramadol [From Ultram] Allergy Unknown unknown Verified 10/31/23 11:54 aspirin Allergy stomach Verified 10/31/23 11:54 pain, unbearable egg Allergy unknown Verified 10/31/23 11:54 Fish Containing Products Allergy ALGY-Rash Verified 11/14/23 17:26 NSAIDS (Non-Steroidal Allergy heartburn, Verified 10/31/23 11:54 Anti-Inflamma stomach pain Tetanus Vaccines and Toxoid Allergy unknown Verified 10/31/23 11:54 adhesive AdvReac Unknown unknown Verified 10/31/23 11:54 Current Medications Generic Name Dose Route Start Last Admin Trade Name Freq PRN Reason Stop Dose Admin Albuterol/Ipratropium 3 ml 12/13/23 16:25 12/14/23 07:21 Ipratropium-Albuterol 3 Ml Neb INHALATION 3 ml Q4H PRN Administration SHORTNESS OF BREATH Ceftriaxone Sodium 1,000 mg 12/13/23 16:30 12/13/23 17:40 Ceftriaxone 1,000 Mg Sdv IVP 1,000 mg Q24H GREGORIO Administration Protocol Levothyroxine Sodium 112 mcg 12/14/23 06:00 12/14/23 06:25 Levothyroxine 112 Mcg Tablet PO 112 mcg QAM GREGORIO Administration Pantoprazole Sodium 40 mg 12/13/23 15:03 12/14/23 03:30 Pantoprazole 40 Mg Sdv IVP 40 mg Q12H GREGORIO Administration PFSH Acute 2 PFSH: Medical History 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 Hypothyroidism COVID-2021 History of echocardiogram 06/2023 EF 60%, Grade I/IV diastolic dysfunction, severe AV stenosis 0.99, mean gradient 40.2 mmHg, peak velocity 4.19 ms 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 Primary osteoarthritis of left knee Iron deficiency anemia Dyslipidemia Port-A-Cath in place placed 12/2022 Adrenal insufficiency hospital stay 08/2023 Reversible airway obstruction Lesion of right [place] ureter History of recurrent UTI (urinary tract infection) Pulmonary nodules Interstitial lung disease Asthma Breast cancer Hydronephrosis of right kidney Osteoporosis Arthritis Aortic stenosis Hypertension DVT (deep venous thrombosis) Pulmonary embolism Obesity Surgical History History of cardiac catheterization 07/2023 no obstructive disease Hx of tubal ligation Hx of cystoscopy Hx of colonoscopy Age 65 Hx of cholecystectomy H/O: hysterectomy Hx of cataract surgery S/P tonsillectomy Family History Father , AT 92 Congestive heart failure (CHF) Mother , AT 100 of unknown cause Other CAD (coronary artery disease) Cancer Diabetes Hyperlipidemia Hypertension Stroke Denies family history of Psychiatric illness Chronic kidney disease (CKD) Suicide Family history of premature coronary artery disease Lung disease Social History Smoking and tobacco/nicotine status: never used tobacco/nicotine Alcohol intake: never Substance/Drug Use: never Marital status: / Current occupational status: retired and disabled Vitals/I&O/Wt Last Vital Signs Temp 98.0 F 12/14/23 08:00 Pulse 92 12/14/23 08:00 Resp 17 12/14/23 07:18 BP 119/72 12/14/23 08:00 Pulse Ox 94 12/14/23 08:00 O2 Del Method Room Air 12/14/23 08:00 12/13/23 12/14/23 12/14/23 22:59 06:59 14:59 Intake Total 193.333 / 1193.333 Balance 193.333 / 1193.333 Weight last 48 hrs Weight 238 lb 11.2 oz Weight 230 lb Weight 219 lb Physical Exam 2 Narrative: General : Patient is well developed , no acute distress, oriented x3 Head : Normal cephalic, a-traumatic. Ears : Pinnae and external canal are normal. Hearing is normal. Eyes : PERRLA, Sclera and injection are normal. No conjunctival discharge. Nose : Mucous membranes are without erythema. Throat : buccal mucosa is normal, gums are without significant recession or hypertrophy. Lungs : Equal chest rise bilaterally, no use of accessory muscles, trachea is midline. Cor : Rate and rhythm are normal. Abdomen : Soft, ND, NT, no g/r/m Extremities : No edema, no cyanosis or clubbing, dorsalis pedis pulses are present bilaterally, non-tender to palpation of calves. Upper extremities are normal bilaterally. Back : non-tender to palpation, no CVA tenderness. Neuro : CN II - XII intact, Upper and lower extremities have equal and full strength Data 12/14/23 03:28 12/14/23 03:28 A&P Assessment and plan (1) Acute upper GI bleed: Plan EGD The risks and benefits of the procedure, including bleeding, infection, intestinal perforation requiring surgery, missed lesion were explained to the patient. The patient is understanding of the risks and wishes to proceed. Coding Level of Care Code 85696 Diagnoses Acute upper GI bleed K92.2
[2023-12-14] MEDS: sodium chloride 0.9% 1,000 ML 30 ML IV (08:40)
--- NOTE | 2023-12-14 08:53 | PM.OP ---
Operative Report Date of procedure: December 14, 2023 Pre-op diagnosis: Coffee-ground emesis/upper GI bleed Post-op diagnosis: Normal EGD Procedure done: EGD with cold forceps biopsy Specimens removed/disposition: Antral biopsy rule out H. pylori Surgeon: Anibal Hernandez DO Anesthesia: MAC Estimated blood loss (mL): 1 Complications: None apparent Brief History: This is a very pleasant 83-year-old female who presents to the hospital with coffee-ground emesis. EGD was indicated. The risks and benefits were explained and documented. Procedure: Patient was brought into the GI lab and put on the hospital bed in the left lateral decubitus position. A timeout was performed. All present were in agreement. Propofol sedation was performed by the department anesthesia. The endoscope was then advanced into the mouth down the esophagus into the stomach and then in to the first 2 parts of the duodenum. No abnormalities were seen throughout the procedure. A cold forceps biopsy was taken of the antrum for H. pylori studies. There was minimal blood loss. The scope was then withdrawn. Patient tolerated procedure well.
--- NOTE | 2023-12-14 09:48 | ANE.PACU2 ---
Inpatient post-anesthesia follow up: Airway intact: Yes Vital signs: Temperature 97.8 F Pulse Rate 91 Respiratory Rate 16 Blood Pressure 104/61 Pulse Oximetry 96 Oxygen Delivery Me thod Room Air Oxygen Flow Rate 6 Fraction of Inspir ed Oxygen Hydration adequate: Yes Nausea and vomiting: No Pain level: n/a Mental status: Baseline
--- NOTE | 2023-12-14 14:08 | P.PN_ITS ---
Subjective 2 Subjective: Patient underwent endoscopy this morning. She reports a slight cough this afternoon. Denies fevers, chills, nausea or emesis. She has not eaten much since endoscopy. She is get a try to eat some today and see if her nausea and vomiting returns. Denies other new complaints. Medications: Reviewed: Yes Vitals/I&O/Wt Last Vital Signs Temp 98.4 F 12/14/23 12:00 Pulse 98 12/14/23 13:38 Resp 18 12/14/23 13:38 BP 111/65 12/14/23 12:00 Pulse Ox 94 12/14/23 13:38 O2 Del Method Room Air 12/14/23 13:38 O2 Flow Rate 6 12/14/23 08:54 12/13/23 12/14/23 12/14/23 22:59 06:59 14:59 Intake Total 193.333 / 1193.333 100 / 100 Balance 193.333 / 1193.333 100 / 100 Weight last 48 hrs Weight 108.272 kg Weight 104.326 kg Weight 99.337 kg Physical Exam 2 Narrative: General: Patient is awake and alert. Appears fatigued but pleasant. Head: Normocephalic. Atraumatic. EOM intact. Neck: No JVD. Cardiovascular: RRR. No gallops. 4+ systolic ejection murmur. Nonpitting bilateral lower extremity edema. Lungs: Clear to auscultation, no use of accessory muscles, no crackles or wheezes. Skin: No jaundice. No rashes. Abdomen: Normal bowel sounds, abdomen soft and nontender. Genito Urinary: Genital exam not performed since complaints not related. Extremities: No cyanosis or clubbing. Musculoskeletal: No swollen or erythematous joints. Neurological: Moves all 4 extremities. No myoclonus. Data 12/14/23 03:28 12/14/23 03:28 A&P Assessment and plan (1) Acute upper GI bleed: Status post EGD this morning, no sign of bleeding Hold apixaban for 1 additional day Rotate back to oral PPI Continuous telemetry monitoring Antiemetics as needed Advance diet Hemoglobin dropped by approximately 1 g Repeat labs in a.m., if no further drop can likely DC Friday (2) Urinary tract infection: Continue Rocephin (3) Severe aortic valve stenosis: Patient reports she is going to follow-up in [place] to schedule her TAVR (4) Hypertension: Monitor blood pressure (5) DVT (deep venous thrombosis): Hold apixaban, plan to restart Friday Qualifiers: DVT location: lower extremity Affected thrombotic vein of extremity: u nspecified lower extremity proximal vein Chronicity: chronic Laterality: b ilateral Qualified Code(s): I82.5Y3 - Chronic embolism and thrombosis of unspecified deep veins of proximal lower extremity, bilateral (6) Adrenal insufficiency: Continue home steroids (7) Breast CA: Continue outpatient follow-up Qualifiers: Breast location: nipple Estrogen receptor status: negative Patient sex: female Laterality: left Qualified Code(s): 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
[2023-12-14] MEDS: cefTRIAXone 1,000 mg SDV 1000 MG IVP (16:32)
[2023-12-15] VITALS (7 sets, daily range): BP systolic 93–115; BP diastolic 58–72; PULSE 90–98; RESP 16–18; TEMP 36.2–36.9; O2SAT 92–98
[2023-12-15 05:09] LABS: Basophils % 0.4 %; Eosinophils # 0.2 10^3/uL (0.0-0.8); Eosinophils % 3.7 %; Hematocrit 28.6 % (36-47); Lymphocytes # 0.8 10^3/uL (0.8-4.8); Mean Corpuscular HGB Conc 31.8 g/dL (30-55); Mean Corpuscular Hemoglobin 33.1 pg (27-33); Mean Platelet Volume 9.6 fL (7.4-10.4); Monocytes # 0.5 10^3/uL (0.2-0.9); Monocytes % 11.7 %; Neutrophils # 3.04 10^3/uL (1.8-7.7); Nucleated Red Blood Cells % 0 %; Platelet Count 163 10^3/cmm (157-399); Red Blood Count 2.75 10^6/uL (3.85-5.65); White Blood Count 4.54 10^3/uL (3.29-11.43)
[2023-12-15 05:34] LABS: Albumin Level 2.9 g/dL (3.5-5.2); Anion Gap 11.5 (5-19); Blood Urea Nitrogen 8 mg/dL (8-23); Calcium 9.2 mg/dL (8.5-10.5); Carbon Dioxide 24 mmol/L (22-29); Chloride 105 mmol/L (98-107); Glucose 86 mg/dL (65-115); Phosphorus 3.5 mg/dL (2.5-4.5); Potassium 3.5 mmol/L (3.5-5.1); Sodium 137 mmol/L (136-145)
[2023-12-15] MEDS: levothyroxine 112 mcg Tablet PO (05:58)
[2023-12-15] MEDS: ipratropium-albuterol 3 mL Neb INHALATION (08:20)
[2023-12-15] MEDS: pantoprazole DR 40 mg Tablet PO (08:25)
[2023-12-15] MEDS: fluoxetine 20 mg Capsule 40 MG PO (08:26)
--- NOTE | 2023-12-15 09:26 | PC.CHAP ---
Pastoral Care Encounter/Spiritual Assessment Type of Contact [] Declined hospitality host visit [] Patient/Family/Request visit [] Outpatient visit [] Follow-up visit [] Physician referral [] Code/Alert [x] Routine visit [] Staff referral [] Actively dying [] Patient sleeping [] Family support [] [] Out of room [] Palliative care [] [] Receiving care in room [] Pre-surgical visit [] Trauma [] Long length of stay [] ICU visit [] Other: Relational/Emotional Strength [] Patient feels connected with others/family/visitors/staff [] Distress [] Loneliness/isolation [] Abandonment Spirituality of Patient [x] Person of Petty [] Attends Restorationist of their Petty [x] Believes in Prayer [] Reads Bible or Oriental Orthodox materials [] There are Spiritual issues to be addressed Clinical Data Associate Interventions [x] Prayer [x] Active listening [] Non-anxious presence [] Spiritual/emotional support [] Crisis/trauma care [] Spiritual counseling [] Bereavement support [] Provided bereavement packet [x] Provided Bible/devotional materials [] Provided toy/stuffed animal, coloring book to patient or family member [] Provided Communion [] Anointing/[place] [] Salvation [x] Completed spiritual assessment [] Other: Impact on Illness or Injury [] Angry [] Fearful [] Anxious [] Often cries [] Exhaustion [] Unable to work [] Unable to attend uatsdin [] Unable to walk/stand [] Unable to read [] Unable to drive [] Unable to eat/drink [] Unable to sleep [] Unable to be with family [] Patient intubated [] Other: Summary Time spent with patient 5 min
--- NOTE | 2023-12-15 10:47 | PC.PHAR ---
[facility] HAS NOT SET UP PT MEDS FOR 2 MONTHS DUE TO HOSPITAL STAYS. MED LIST OBTAINED IS 2 MONTHS OLD.
--- NOTE | 2023-12-15 12:36 | P.DS_ITS ---
Discharge Providers Date of Admission: 12/13/23 13:19 Date of Discharge: December 15, 2023 Attending Provider at Admission: Carlos Juarez MD Attending Provider at Discharge: Jamari Lazar Primary Care Provider: Sánchez Macario Diagnoses at Discharge Discharge Diagnosis (1) Acute upper GI bleed: Status: Acute (2) Urinary tract infection: Status: Acute (3) Severe aortic valve stenosis: Status: Chronic (4) Hypertension: Status: Chronic (5) DVT (deep venous thrombosis): Status: Chronic Qualifiers: DVT location: lower extremity Affected thrombotic vein of extremity: unspecified lower extremity proximal vein Chronicity: chronic Laterality: bilateral Qualified Code(s): I82.5Y3 - Chronic embolism and thrombosis of unspecified deep veins of proximal lower extremity, bilateral (6) Adrenal insufficiency: Status: Acute Permanent problem details: hospital stay 08/2023 (7) Breast CA: Status: Acute Qualifiers: Breast location: nipple Estrogen receptor status: negative Patient sex: female Laterality: left Qualified Code(s): C50.012 - Malignant neoplasm of nipple and areola, left female breast; Z17.1 - Estrogen receptor negative status [ER-] Reason for Visit Reason for Visit: N/V Hospital Course Hospital Course Very pleasant 83-year-old lady with history of DVT, severe aortic stenosis, invasive ductal carcinoma of the left breast, HFpEF, adrenal insufficiency, on chronic steroid, multiple comorbidities, was admitted after presenting with nausea and vomiting, with described coffee-ground contents, suspected upper GI bleeding. Eliquis was held, she received IV PPI, antiemetics, blood counts were monitored. She did not require transfusion. She underwent EGD with biopsy. EGD was unrevealing. Blood counts were followed up and leveled off around 9. She is doing well. No nausea or vomiting. Tolerating oral intake. No discomfort of any kind, she feels ready to return home. As per plans she is resuming Eliquis, however, I am asking her to hold her fluoxetine for now as well as discontinue vitamin E which may contribute to increased risk of bleeding with anticoagulation. Please follow-up blood counts, revisit her medications. Please follow-up pending biopsy results. Physical Exam Const: COMMON NORMALS: patient oriented x3 and alert GENERAL APPEARANCE: cooperative ORIENTATION/CONSCIOUSNESS: Yes awake HENMT: COMMON NORMALS: oropharynx normal Neck/C-Spine: COMMON NORMALS: no JVD Resp: COMMON NORMALS: normal respiratory effort and clear to auscultation bilaterally AUSCULTATION: clear to auscultation bilaterally Cardio: COMMON NORMALS: no JVD, regular rhythm, S1 normal heart sound present, S2 normal heart sound present and No murmurs present (Cardio) RHYTHM: regular rhythm HEART SOUNDS: S1 normal heart sound present and S2 normal heart sound present GI: COMMON NORMALS: Normal to inspection, nondistended, normoactive bowel sounds present, Soft to palpation and non-tender PALPATION: Yes Soft to palpation Extremity: COMMON NORMALS: no joint enlargement and no pedal edema Neuro: COMMON NORMALS: patient oriented x3 and moves all extremities SE NSORIUM/ORIENTATION: Yes alert Skin: COMMON NORMALS: no rashes or lesions noted GENERAL SKIN EXAM: no rashes or lesions noted Discharge Data Studies Completed and Pending Completed Studies During Hospitalization Category Date Time Status CT abdomen pelvis w con* [id number] Stat Cat Scan 12/13/23 11:05 Completed XR chest 1V portable [id number] Stat Exams 12/13/23 10:23 Completed Pending at discharge Category Date Time Status Pathology: Surgical [PTH] Routine Pth 12/14/23 08:55 Received Radiology Impressions Chest X-Ray 12/13/23 10:23 IMPRESSION: No acute cardiopulmonary abnormality. Abdomen/Pelvis CT 12/13/23 11:05 IMPRESSION: 1. No bowel obstruction or acute inflammation. 2. Mild bladder wall thickening is nonspecific. Recommend clinical correlation if there is concern for cystitis. Laboratory Results WBC 4.54 10^3/uL (3.29-11.43) 12/15/23 04:25 RBC 2.75 10^6/uL (3.85-5.65) L 12/15/23 04:25 Hgb 9.10 g/dL (11.27-16.99) L 12/15/23 04:25 Hct 28.6 % (36-47) L 12/15/23 04:25 MCV 104.0 fl (85-98) H 12/15/23 04:25 MCH 33.1 pg (27-33) H 12/15/23 04:25 MCHC 31.8 g/dL (30-55) 12/15/23 04:25 RDW 15.0 % (12.1-15.1) 12/15/23 04:25 Plt Count 163 10^3/cmm (157-399) 12/15/23 04:25 MPV 9.6 fL (7.4-10.4) 12/15/23 04:25 Neut % (Auto) 67.0 % 12/15/23 04:25 Lymph % (Auto) 17.0 % 12/15/23 04:25 [place] % (Auto) 11.7 % 12/15/23 04:25 Eos % (Auto) 3.7 % 12/15/23 04:25 Baso % (Auto) 0.4 % 12/15/23 04:25 Neut # (Auto) 3.04 10^3/uL (1.8-7.7) 12/15/23 04:25 Lymph # (Auto) 0.8 10^3/uL (0.8-4.8) 12/15/23 04:25 [place] # (Auto) 0.5 10^3/uL (0.2-0.9) 12/15/23 04:25 Eos # (Auto) 0.2 10^3/uL (0.0-0.8) 12/15/23 04:25 Baso # (Auto) 0.0 10^3/uL (0.0-0.1) 12/15/23 04:25 Nucleated RBC % (auto) 0 % 12/15/23 04:25 Nucleated RBCs # 0.0 /100WBC 12/15/23 04:25 Sodium 137 mmol/L (136-145) 12/15/23 04:25 Potassium 3.5 mmol/L (3.5-5.1) 12/15/23 04:25 Chloride 105 mmol/L (98-107) 12/15/23 04:25 Carbon Dioxide 24 mmol/L (22-29) 12/15/23 04:25 Anion Gap 11.5 (5-19) 12/15/23 04:25 BUN 8 mg/dL (8-23) 12/15/23 04:25 Creatinine 0.7 mg/dL (0.5-0.9) 12/15/23 04:25 GFR Calculation Not Reportable 12/15/23 04:25 Glucose 86 mg/dL (65-115) 12/15/23 04:25 Calculated Osmolality 282 mOsm/kg (285-295) L 12/14/23 03:28 Calcium 9.2 mg/dL (8.5-10.5) 12/15/23 04:25 Phosphorus 3.5 mg/dL (2.5-4.5) 12/15/23 04:25 Magnesium 1.9 mg/dL (1.7-2.3) 12/14/23 03:28 Total Bilirubin 0.5 mg/dL (0.15-1.2) 12/13/23 10:30 AST 21 U/L (0-32) 12/13/23 10:30 ALT 21 U/L (0-33) 12/13/23 10:30 Alkaline Phosphatase 77 U/L (35-105) 12/13/23 10:30 Total Protein 5.5 g/dL (6.6-8.7) L 12/13/23 10:30 Albumin 2.9 g/dL (3.5-5.2) L 12/15/23 04:25 Globulin 2.6 g/dL (1.3-4.6) 12/13/23 10:30 Lipase 9 U/L (13-60) L 12/13/23 10:30 Urine Color Dark yellow (Yellow) A 12/13/23 11:06 Urine Appearance Clear (CLEAR) 12/13/23 11:06 Urine pH 8.0 (5-7) A 12/13/23 11:06 Ur Specific [place] 1.019 (1.005-1.030) 12/13/23 11:06 Urine Protein Trace (Negative) A 12/13/23 11:06 Urine Glucose (UA) Negative (Normal) 12/13/23 11:06 Urine Ketones Trace (Negative) 12/13/23 11:06 Urine Blood Negative (Negative) 12/13/23 11:06 Urine Nitrate Negative (Negative) 12/13/23 11:06 Urine Bilirubin Negative (Negative) 12/13/23 11:06 Urine Urobilinogen 1.0 mg/dL (Negative) 12/13/23 11:06 Ur Leukocyte Esterase Trace (Negative) A 12/13/23 11:06 Urine RBC 0-2 /hpf (0-2) 12/13/23 11:06 Urine WBC 0-5 /hpf (0-5) 12/13/23 11:06 Ur Squamous Epith Cells 6-10 /hpf (0-5) 12/13/23 11:06 Uric Acid Crystals 10-15 /hpf H 12/13/23 11:06 Amorphous Sediment Not Reportable 12/13/23 11:06 Urine Bacteria None seen /hpf (NONE) 12/13/23 11:06 Hyaline Casts 0-4 /lpf H 12/13/23 11:06 Vitals Last Vital Signs Temp 97.2 F L 12/15/23 11:49 Pulse 92 12/15/23 11:49 Resp 18 12/15/23 11:49 BP 100/64 12/15/23 11:49 Pulse Ox 93 12/15/23 11:49 O2 Del Method Room Air 12/15/23 11:49 O2 Flow Rate 6 12/14/23 08:54 Discharge Plan Discharge Patient Disposition: Home Health Service Condition: Stable Prescriptions: New cefdinir 300 mg capsule 300 mg PO BID 4 Days Qty: 8 0RF Continued diphenhydramine HCl [Benadryl] 25 mg capsule 25 mg PO TID PRN (Reason: Itching) meclizine 25 mg tablet 25 mg PO TID PRN (Reason: Dizziness) multivitamin Tablet 1 tab PO DAILY tolterodine 4 mg capsule,extended release 24hr 4 mg PO DAILY red yeast rice 600 mg capsule 600 mg PO BID Rx Instructions: give with meal/snack potassium chloride 10 mEq capsule, extended release 10 meq PO DAILY Prolia 60 mg/mL syringe 60 mg SUBCUT Q6M cyanocobalamin (vitamin B-12) 2,500 mcg tablet 2,500 mcg PO DAILY selenium 50 mcg tablet 50 mcg PO DAILY (DME) Nebulizer and accessory kit See Rx Instructions .Route .MEDSUPPLY Qty: 1 0RF Patient Comments: Patient states that they do not have the machine. Rx Instructions: As directed (DME) custom inserts See Rx Instructions .Route .MEDSUPPLY Qty: 1 0RF Rx Instructions: As directed lidocaine-prilocaine 2.5-2.5 % cream 1 applic topical DAILY PRN (Reason: inflammation and pain) ondansetron 4 mg tablet,disintegrating 4 mg PO Q6H PRN (Reason: nausea and vomiting) Qty: 20 0RF diphenoxylate-atropine [Lomotil] 2.5-0.025 mg tablet 1 tab PO BID PRN (Reason: diarrhea) Qty: 10 0RF Eliquis 5 mg tablet 5 mg PO BID Qty: 60 0RF docusate sodium [Colace] 100 mg Capsule 100 mg PO BID lorazepam 0.5 mg tablet 0.5 mg PO DAILY levothyroxine 112 mcg tablet 112 mcg PO DAILY benzonatate 100 mg capsule 200 mg PO TID PRN (Reason: Cough) acetaminophen [Tylenol] 325 mg capsule 325 mg PO Q6H PRN (Reason: Pain) sulfamethoxazole-trimethoprim [Bactrim DS] 800-160 mg tablet 1 tab PO .Three times a week Qty: 60 0RF Rx Instructions: Prophylaxis as on high dose steroids Changed pantoprazole 40 mg Tablet,Delayed Release (Dr/Ec) 40 mg PO BIDWM Qty: 90 0RF Held fluoxetine 40 mg capsule 40 mg PO DAILY Hold Instructions: Resume on 12/18/23. Discontinued vitamin E mixed 1,000 unit capsule 4,000 unit PO DAILY No Action calcium carb-D3-mag [id number] [phone]-td-mg Tablet 1 tab PO DAILY Rx Instructions: administer with a meal prednisone 10 mg tablet See Rx Instructions .ROUTE .COMPLEX Taper: predniSONE 60-10 40 mg Daily for 7 Days and 0 Hour 30 mg Daily for 7 Days and 0 Hour 20 mg Daily for 7 Days and 0 Hour 10 mg Daily for 30 Days and 0 Hour Rx Instructions: Take 40mg by mouth daily for 7 days, 30mg daily for 7 days, 20mg daily for 7 days, 1-mg daily for 30 days. ipratropium-albuterol 0.5 mg-3 mg(2.5 mg base)/3 mL solution for nebulization 3 ml inhalation Q6H PRN (Reason: Shortness Of Breath) budesonide 0.5 mg/2 mL suspension for nebulization 0.5 mg inhalation BID PRN (Reason: Shortness Of Breath) ropinirole 0.25 mg tablet 0.25 mg PO DAILY Discharge Orders: Discharge Order (Routine); Ordered 12/15/23 Ordered By: Jamari Lazar [facility]] Anibal Hernandez DO [Physician] - (We have notified your physician's clinic of the need for a follow-up appointment to be scheduled. If you have not heard from them within the next 2 business days, please call them directly. ) [facility] [Referring] - 12/17/23 11:05 am Discharge Diet: Cardiac Patient Instructions: Cefdinir (By mouth), GI Bleeding, Urinary Tract Infection in Women (GEN), GI Post Discharge Instructions w/ Anesthesia, Opioid Safety Activity Restrictions/Additional Instructions: Please follow-up with your primary provider for reassessment after upper gastrointestinal bleeding. Be cautious when resuming Eliquis, in case you notice any additional bleeding seek medical attention immediately. For now please hold fluoxetine and please discontinue vitamin D so as not to contribute to risk of bleeding. Follow-up with your primary doctor for reassessment of the above and UTI. Seek medical attention in case of any worsening or new concerning symptoms. Discharge Attestations Time Spent in Discharge Care*: greater than 30 min Status at Discharge: Cognitive status at discharge: cognitively intact , Behavioral status at discharge: cooperative , Quality Metrics Clinical Quality Measures [ No reported AMI, CVA or VTE this stay] Coding Level of Care Code 84433 Total time (in minutes) for Discharge: 45 Diagnoses Acute upper GI bleed K92.2 Urinary tract infection N39.0 Severe aortic valve stenosis I35.0 Hypertension I10 Chronic deep vein thrombosis (DVT) of proximal vein of both lower extremities I82.5Y3 DVT location: lower extremity Affected thrombotic vein of extremity: unspecified lower extremity proximal vein Chronicity: chronic Laterality: bilateral Adrenal insufficiency E27.40 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
== END 2023-12-15 13:29 | disposition home health service (06) ==
LOC: ER 13:48 → MEDSURG 14:38
PROVIDERS: Surgery; Admitting Provider Internal Medicine; Emergency Provider Family Medicine; PCP Family Medicine; Visit Provider Internal Medicine
PROC: 0DJ08ZZ Inspection of Upper Intestinal Tract, Via Natural or Artificial Opening Endoscopic (ICD-10-PCS; CPT 43235; principal; 2023-12-14 08:20)
DX: K92.2 Gastrointestinal hemorrhage, unspecified (principal); N39.0 Urinary tract infection, site not specified; I35.0 Nonrheumatic aortic (valve) stenosis; I10 Essential (primary) hypertension; I82.5Y3 Chronic embolism and thrombosis of unspecified deep veins of proximal lower extremity, bilateral; E27.40 Unspecified adrenocortical insufficiency; C50.012 Malignant neoplasm of nipple and areola, left female breast; Z17.1 Estrogen receptor negative status [ER-]; Z79.01 Long term (current) use of anticoagulants; E03.9 Hypothyroidism, unspecified; Z86.16 Personal history of COVID-19; E66.9 Obesity, unspecified; Z68.37 Body mass index [BMI] 37.0-37.9, adult
CPT/HCPCS: 43239; 36415; 36591; 71045; 74177; 80048; 80053; 80069; 81003; 81015; 83690; 83735; 85025; 88305; 93005; 94640; 96361; 96374; 96375; 96376; 99285; G0378; J0696; J1720; J2470; J2704; J7030; Q9967

== ENCOUNTER 2023-12-17 14:49 | Emergency (ER) | payer MEDICARE, MEDICAID, SELFPAY ==
[2023-12-17 14:53] VITALS: BP 139/83; PULSE 96; RESP 16; TEMP 36.3; O2SAT 94; BMI 34.7
[2023-12-17] MEDS: sodium chloride 0.9% 1,000 ML 999 ML IV (16:11)
[2023-12-17] MEDS: famotidine 20 mg/2 mL INJ 40 MG IVP (16:14)
[2023-12-17] MEDS: ondansetron 2 mg/ML SDV 2 mL 4 MG IVP (16:14)
[2023-12-17 16:17] LABS: Basophils # 0.1 10^3/uL (0.0-0.1); Basophils % 1.3 %; Eosinophils # 0.2 10^3/uL (0.0-0.8); Eosinophils % 4.6 %; Hematocrit 32.5 % (36-47); Lymphocytes # 0.8 10^3/uL (0.8-4.8); Lymphocytes % 16.7 %; Mean Corpuscular HGB Conc 32.6 g/dL (30-55); Mean Corpuscular Hemoglobin 33.9 pg (27-33); Mean Corpuscular Volume 103.8 fl (85-98); Mean Platelet Volume 9.5 fL (7.4-10.4); Monocytes # 0.7 10^3/uL (0.2-0.9); Neutrophils # 2.97 10^3/uL (1.8-7.7); Neutrophils % 61.8 %; Nucleated Red Blood Cells % 0 %; Platelet Count 204 10^3/cmm (157-399); Red Blood Count 3.13 10^6/uL (3.85-5.65); Red Cell Distribution Width 15.1 % (12.1-15.1)
[2023-12-17 16:23] VITALS: BP 113/66; PULSE 90; RESP 18; O2SAT 92
--- NOTE | 2023-12-17 16:26 | ED_ITS ---
HPI - Nausea/Vomiting/Diarrhea 2 General: Chief complaint: Nausea/Vomiting/Diarrhea Stated complaint: N/V Time Seen by Provider: 12/17/23 15:57 History of Present Illness: 83-year-old female with a history of DVT , A-fib, chronic anticoagulation, who has breast cancer and has been receiving chemotherapy up until about 3 months ago. She said that stopped because she is planning on having a valve replacement. She was admitted to the hospital recently with a UTI and an upper GI bleed. She states she started antibiotics but they nausea and vomiting symptoms have gotten worse at home. No black vomit but she says she has had some flecks of blood. No altered mental status. No focal motor deficits. No fevers. No focal abdominal pain. No diarrhea. Related Data Home Medications Medication Instructions Recorded Confirmed diphenhydramine HCl 25 mg capsule 25 mg PO TID PRN Itching 12/28/19 12/15/23 (Benadryl) meclizine 25 mg tablet 25 mg PO TID PRN Dizziness 12/28/19 12/15/23 multivitamin 1 tab PO DAILY 12/28/19 12/15/23 potassium chloride 10 mEq 10 meq PO DAILY 12/28/19 12/15/23 capsule,extended release red yeast rice 600 mg capsule 600 mg PO BID 12/28/19 12/15/23 tolterodine 4 mg capsule,extended 4 mg PO DAILY 12/28/19 12/15/23 release 24 hr denosumab 60 mg/mL subcutaneous 60 mg SUBCUT Q6M 06/26/20 12/15/23 syringe (Prolia) cyanocobalamin (vitamin B-12) 2,500 mcg PO DAILY 07/19/21 12/15/23 2,500 mcg tablet selenium 50 mcg tablet 50 mcg PO DAILY 02/05/23 12/15/23 lidocaine-prilocaine 2.5 %-2.5 % 1 applic topical DAILY PRN 07/23/23 12/15/23 topical cream inflammation and pain docusate sodium 100 mg capsule 100 mg PO BID 11/12/23 12/15/23 (Colace) acetaminophen 325 mg capsule 325 mg PO Q6H PRN Pain 12/08/23 12/15/23 (Tylenol) benzonatate 100 mg capsule 200 mg PO TID PRN Cough 12/08/23 12/15/23 fluoxetine 40 mg capsule 40 mg PO DAILY 12/08/23 12/15/23 levothyroxine 112 mcg tablet 112 mcg PO DAILY 12/08/23 12/15/23 lorazepam 0.5 mg tablet 0.5 mg PO DAILY 12/08/23 12/15/23 budesonide 0.5 mg/2 mL suspension 0.5 mg inhalation BID PRN 12/15/23 12/15/23 for nebulization Shortness Of Breath calcium carb-vit [id number] 1 tab PO DAILY 12/15/23 12/15/23 333 mg-200 unit-133 mg-5 mg tablet ipratropium 0.5 mg-albuterol 3 mg 3 ml inhalation Q6H PRN Shortness 12/15/23 12/15/23 (2.5 mg base)/3 mL nebulization Of Breath soln prednisone 10 mg tablet See Rx Instructions .Route .COMPLEX 12/15/23 12/15/23 ropinirole 0.25 mg tablet 0.25 mg PO DAILY 12/15/23 12/15/23 Previous Rx's Medication Instructions Recorded Nebulizer and accessory kit #1 ea 02/05/23 custom inserts #1 ea 08/06/23 diphenoxylate-atropine 2.5 1 tab PO BID PRN diarrhea #10 tabs 08/30/23 mg-0.025 mg tablet (Lomotil) ondansetron 4 mg disintegrating 4 mg PO Q6H PRN nausea and 08/30/23 tablet vomiting #20 tabs apixaban 5 mg tablet (Eliquis) 5 mg PO BID #60 tabs 09/11/23 sulfamethoxazole 800 1 tab PO .Three times a week #60 12/09/23 mg-trimethoprim 160 mg tablet tabs (Bactrim DS) cefdinir 300 mg capsule 300 mg PO BID 4 days #8 caps 12/15/23 pantoprazole 40 mg tablet,delayed 40 mg PO BIDWM #90 tabs 12/15/23 release ondansetron 8 mg disintegrating 8 mg PO Q6H #14 tabs 12/17/23 tablet Allergies Allergy/AdvReac Type Severity Reaction Status Date / Time tetanus toxoid, adsorbed Allergy Severe unknown Verified 12/17/23 16:19 ciprofloxacin [From Cipro] Allergy Unknown ADR-Vomitin Verified 12/17/23 16:19 g erythromycin base Allergy Unknown ADR-Vomitin Verified 12/17/23 16:19 g gabapentin [From Neurontin] Allergy Unknown unknown Verified 12/17/23 16:19 hydrocodone [From Vicodin] Allergy Unknown unknown Verified 12/17/23 16:19 Influenza Virus Vaccines Allergy Unknown unknown Verified 12/17/23 16:19 tramadol [From Ultram] Allergy Unknown unknown Verified 12/17/23 16:19 aspirin Allergy stomach Verified 12/17/23 16:19 pain, unbearable egg Allergy unknown Verified 12/17/23 16:19 Fish Containing Products Allergy ALGY-Rash Verified 12/17/23 16:19 NSAIDS (Non-Steroidal Allergy heartburn, Verified 12/17/23 16:19 Anti-Inflamma stomach pain Tetanus Vaccines and Toxoid Allergy unknown Verified 12/17/23 16:19 adhesive AdvReac Unknown unknown Verified 12/17/23 16:19 Review of Systems 2 Narrative: Constitutional symptoms: Negative except as documented in HPI. Skin symptoms: Negative except as documented in HPI. Eye symptoms: Negative except as documented in HPI. ENMT symptoms: Negative except as documented in HPI. Respiratory symptoms: Negative except as documented in HPI. Cardiovascular symptoms: Negative except as documented in HPI. Gastrointestinal symptoms: Negative except as documented in HPI. Genitourinary symptoms: Negative except as documented in HPI. Musculoskeletal symptoms: Negative except as documented in HPI. Neurologic symptoms: Negative except as documented in HPI. Psychiatric symptoms: Negative except as documented in HPI. Endocrine symptoms: Negative except as documented in HPI. 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 History of recurrent UTI (urinary tract infection) Pulmonary nodules Interstitial lung disease Asthma Breast cancer Hydronephrosis of right kidney Osteoporosis Arthritis Aortic stenosis Hypertension DVT (deep venous thrombosis) Pulmonary embolism Obesity Surgical History History of cardiac catheterization 07/2023 no obstructive disease Hx of tubal ligation Hx of cystoscopy Hx of colonoscopy Age 65 Hx of cholecystectomy H/O: hysterectomy Hx of cataract surgery S/P tonsillectomy Family History Father , AT 92 Congestive heart failure (CHF) Mother , AT 100 of unknown cause Other CAD (coronary artery disease) Cancer Diabetes Hyperlipidemia Hypertension Stroke Denies family history of Psychiatric illness Chronic kidney disease (CKD) Suicide Family history of premature coronary artery disease Lung disease Social History Smoking and tobacco/nicotine status: never used tobacco/nicotine Alcohol intake: never Substance/Drug Use: never Marital status: / Current occupational status: retired and disabled Physical Exam 2 Narrative: EXAM NARRATIVE: General: Alert, no acute distress. Skin: Warm, dry. Head: Normocephalic, atraumatic. Neck: Supple, trachea midline. Eye: Extraocular movements are intact. Ears, nose, mouth and throat: mucosa moist. Cardiovascular: Regular, Normal peripheral perfusion. Respiratory: Lungs are clear to auscultation, respirations are non-labored, breath sounds are equal, Symmetrical chest wall expansion. Gastrointestinal: Soft, Nontender, Non distended Musculoskeletal: Normal ROM, no deformity. Neurological: Alert and oriented, No focal neurological deficit observed. Psychiatric: Cooperative, appropriate mood & affect. Course 2 Vital Signs: Vital signs: Vital Signs Temperature 97.4 F L 12/17/23 14:53 Pulse Rate 98 12/17/23 18:01 Respiratory Rate 18 12/17/23 18:01 Blood Pressure 106/59 12/17/23 18:01 Pulse Oximetry 91 12/17/23 18:01 Oxygen Delivery Me thod Room Air 12/17/23 16:23 MDM - Nausea/Vomiting/Diarrhea Medical Decision Making Medical decision making: Differential diagnosis for this patient with nausea and vomiting including but not limited to and based on the above HPI, review of systems and physical exam: Urinary tract infection. Appendicitis. Cholecystis. colitis. small bowel obstruction. crohn's flare. pancreatitis. gastritis. peptic ulcer. cyclic vomiting. Viral illness. Influenza. COVID. - Workup - labwork and imaging ordered to evaluate, rule in and rule out above pathologies. Lab Review: Laboratory results were reviewed and interpreted by myself the emergency room physician. No leukocytosis. Hemoglobin is actually up a little bit from previous. No elevation in her BUN which would indicate no active upper GI bleeding or recent GI bleeding. Urinalysis still has some mild infection but is improving. She is still on Omnicef and should continue. I reviewed the patient's medical record. Reexamination: Patient remained stable. No increased work of breathing. No altered mental status. No focal motor deficits. Assessment and plan: Dehydration Vomiting Urinary tract infection -IV Pepcid, IV Zofran and a normal saline bolus. - Discharged home - Discussed findings and plan with patient. Answered any questions. - All laboratory values were reviewed and interpreted personally by myself, the ER physician - All imaging was reviewed and interpreted personally by myself, the ER physician. - Evaluation and treatment of this problem were appropriate in the emergency setting Lab Data 12/17/23 16:00 12/17/23 16:00 Laboratory Results WBC 4.80 10^3/uL (3.29-11.43) 12/17/23 16:00 RBC 3.13 10^6/uL (3.85-5.65) L 12/17/23 16:00 Hgb 10.60 g/dL (11.27-16.99) L 12/17/23 16:00 Hct 32.5 % (36-47) L 12/17/23 16:00 MCV 103.8 fl (85-98) H 12/17/23 16:00 MCH 33.9 pg (27-33) H 12/17/23 16:00 MCHC 32.6 g/dL (30-55) 12/17/23 16:00 RDW 15.1 % (12.1-15.1) 12/17/23 16:00 Plt Count 204 10^3/cmm (157-399) 12/17/23 16:00 MPV 9.5 fL (7.4-10.4) 12/17/23 16:00 Neut % (Auto) 61.8 % 12/17/23 16:00 Lymph % (Auto) 16.7 % 12/17/23 16:00 [place] % (Auto) 15.0 % 12/17/23 16:00 Eos % (Auto) 4.6 % 12/17/23 16:00 Baso % (Auto) 1.3 % 12/17/23 16:00 Neut # (Auto) 2.97 10^3/uL (1.8-7.7) 12/17/23 16:00 Lymph # (Auto) 0.8 10^3/uL (0.8-4.8) 12/17/23 16:00 [place] # (Auto) 0.7 10^3/uL (0.2-0.9) 12/17/23 16:00 Eos # (Auto) 0.2 10^3/uL (0.0-0.8) 12/17/23 16:00 Baso # (Auto) 0.1 10^3/uL (0.0-0.1) 12/17/23 16:00 Nucleated RBC % (auto) 0 % 12/17/23 16:00 Nucleated RBCs # 0.0 /100WBC 12/17/23 16:00 Sodium 131 mmol/L (136-145) L 12/17/23 16:00 Potassium 3.5 mmol/L (3.5-5.1) 12/17/23 16:00 Chloride 97 mmol/L (98-107) L 12/17/23 16:00 Carbon Dioxide 19 mmol/L (22-29) L 12/17/23 16:00 Anion Gap 18.5 (5-19) 12/17/23 16:00 BUN 7 mg/dL (8-23) L 12/17/23 16:00 Creatinine 0.7 mg/dL (0.5-0.9) 12/17/23 16:00 GFR Calculation Not Reportable 12/17/23 16:00 Glucose 103 mg/dL (65-115) 12/17/23 16:00 Calculated Osmolality 270 mOsm/kg (285-295) L 12/17/23 16:00 Lactic Acid 1.4 mmol/L (0.5-2.2) 12/17/23 16:00 Calcium 9.6 mg/dL (8.5-10.5) 12/17/23 16:00 Total Bilirubin 0.3 mg/dL (0.15-1.2) 12/17/23 16:00 AST 29 U/L (0-32) 12/17/23 16:00 ALT 25 U/L (0-33) 12/17/23 16:00 Alkaline Phosphatase 83 U/L (35-105) 12/17/23 16:00 C-Reactive Protein 25.9 mg/L (0.0-4.9) H 12/17/23 16:00 Total Protein 6.0 g/dL (6.6-8.7) L 12/17/23 16:00 Albumin 3.2 g/dL (3.5-5.2) L 12/17/23 16:00 Globulin 2.8 g/dL (1.3-4.6) 12/17/23 16:00 Lipase 9 U/L (13-60) L 12/17/23 16:00 Urine Color Dark yellow (Yellow) A 12/17/23 17:16 Urine Appearance Clear (CLEAR) 12/17/23 17:16 Urine pH 5.5 (5-7) 12/17/23 17:16 Ur Specific [place] 1.018 (1.005-1.030) 12/17/23 17:16 Urine Protein Negative (Negative) 12/17/23 17:16 Urine Glucose (UA) Negative (Normal) 12/17/23 17:16 Urine Ketones Trace (Negative) 12/17/23 17:16 Urine Blood Negative (Negative) 12/17/23 17:16 Urine Nitrate Negative (Negative) 12/17/23 17:16 Urine Bilirubin Negative (Negative) 12/17/23 17:16 Urine Urobilinogen 1.0 mg/dL (Negative) 12/17/23 17:16 Ur Leukocyte Esterase Trace (Negative) A 12/17/23 17:16 Urine RBC 0-4 /hpf (0-2) H 12/17/23 17:16 Urine WBC 5-10 /hpf (0-5) H 12/17/23 17:16 Ur Squamous Epith Cells 0-4 /hpf (0-5) H 12/17/23 17:16 Calcium Oxalate Crystal 15-25 /hpf H 12/17/23 17:16 Amorphous Sediment Not Reportable 12/17/23 17:16 Urine Bacteria Trace /hpf (NONE) 12/17/23 17:16 Hyaline Casts 0-4 /lpf H 12/17/23 17:16 Urine Mucus Trace /hpf 12/17/23 17:16 No radiology studies performed this visit Discharge Plan Discharge Patient Disposition: Home Clinical Impression: Vomiting, Urinary tract infection, Dehydration Condition: Stable Prescriptions: New ondansetron 8 mg tablet,disintegrating 8 mg PO Q6H Qty: 14 0RF Rx Instructions: Take 1/2-1 tab every 6 hours as needed for nausea and vomiting No Action diphenhydramine HCl [Benadryl] 25 mg capsule 25 mg PO TID PRN (Reason: Itching) meclizine 25 mg tablet 25 mg PO TID PRN (Reason: Dizziness) multivitamin Tablet 1 tab PO DAILY tolterodine 4 mg capsule,extended release 24hr 4 mg PO DAILY red yeast rice 600 mg capsule 600 mg PO BID Rx Instructions: give with meal/snack potassium chloride 10 mEq capsule, extended release 10 meq PO DAILY Prolia 60 mg/mL syringe 60 mg SUBCUT Q6M cyanocobalamin (vitamin B-12) 2,500 mcg tablet 2,500 mcg PO DAILY selenium 50 mcg tablet 50 mcg PO DAILY (DME) Nebulizer and accessory kit See Rx Instructions .Route .MEDSUPPLY Qty: 1 0RF Patient Comments: Patient states that they do not have the machine. Rx Instructions: As directed (DME) custom inserts See Rx Instructions .Route .MEDSUPPLY Qty: 1 0RF Rx Instructions: As directed lidocaine-prilocaine 2.5-2.5 % cream 1 applic topical DAILY PRN (Reason: inflammation and pain) ondansetron 4 mg tablet,disintegrating 4 mg PO Q6H PRN (Reason: nausea and vomiting) Qty: 20 0RF diphenoxylate-atropine [Lomotil] 2.5-0.025 mg tablet 1 tab PO BID PRN (Reason: diarrhea) Qty: 10 0RF Eliquis 5 mg tablet 5 mg PO BID Qty: 60 0RF docusate sodium [Colace] 100 mg Capsule 100 mg PO BID fluoxetine 40 mg capsule 40 mg PO DAILY Hold Instructions: Resume on 12/18/23. lorazepam 0.5 mg tablet 0.5 mg PO DAILY levothyroxine 112 mcg tablet 112 mcg PO DAILY benzonatate 100 mg capsule 200 mg PO TID PRN (Reason: Cough) acetaminophen [Tylenol] 325 mg capsule 325 mg PO Q6H PRN (Reason: Pain) sulfamethoxazole-trimethoprim [Bactrim DS] 800-160 mg tablet 1 tab PO .Three times a week Qty: 60 0RF Rx Instructions: Prophylaxis as on high dose steroids cefdinir 300 mg capsule 300 mg PO BID 4 Days Qty: 8 0RF pantoprazole 40 mg Tablet,Delayed Release (Dr/Ec) 40 mg PO BIDWM Qty: 90 0RF calcium carb-D3-mag [id number] [phone] wg-jret-bi-mg Tablet 1 tab PO DAILY Rx Instructions: administer with a meal prednisone 10 mg tablet See Rx Instructions .ROUTE .COMPLEX Taper: predniSONE 60-10 40 mg Daily for 7 Days and 0 Hour 30 mg Daily for 7 Days and 0 Hour 20 mg Daily for 7 Days and 0 Hour 10 mg Daily for 30 Days and 0 Hour Rx Instructions: Take 40mg by mouth daily for 7 days, 30mg daily for 7 days, 20mg daily for 7 days, 1-mg daily for 30 days. ipratropium-albuterol 0.5 mg-3 mg(2.5 mg base)/3 mL solution for nebulization 3 ml inhalation Q6H PRN (Reason: Shortness Of Breath) budesonide 0.5 mg/2 mL suspension for nebulization 0.5 mg inhalation BID PRN (Reason: Shortness Of Breath) ropinirole 0.25 mg tablet 0.25 mg PO DAILY Discharge Orders: Discharge ED (Routine); Ordered 12/17/23 Ordered By: Ese Mayes Referrals: Sánchez Macario [Primary Care Provider] - Discharge Diet: Usual diet Discharge Activity: Increase activity as tolerated Patient Instructions: Urinary Tract Infection in Men (ED) Activity Restrictions/Additional Instructions: Thank you for choosing [facility] for your healthcare needs today. Please realize this is an emergency room and that we are providing you with a medical screening exam and this may not be complete and all inclusive of all the testing and or work up that you may need to determine your ailment or severity of your illness. You have been screened and evaluated and felt safe for discharge. Health conditions do change or evolve sometimes and as such it is important that you follow up with your Primary Doctor to be re checked, 3-5 days is a general good time frame for follow up. 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
[2023-12-17 16:28] LABS: Alanine Aminotransferase 25 U/L (0-33); Albumin Level 3.2 g/dL (3.5-5.2); Alkaline Phosphatase 83 U/L (35-105); Anion Gap 18.5 (5-19); Aspartate Amino Transferase 29 U/L (0-32); Blood Urea Nitrogen 7 mg/dL (8-23); C Reactive Protein 25.9 mg/L (0.0-4.9); Calcium 9.6 mg/dL (8.5-10.5); Carbon Dioxide 19 mmol/L (22-29); Chloride 97 mmol/L (98-107); Creatinine Clr Calc Pharmacy 62.7401; Globulin 2.8 g/dL (1.3-4.6); Glucose 103 mg/dL (65-115); Lipase 9 U/L (13-60); Osmolality Calculated 270 mOsm/kg (285-295); Potassium 3.5 mmol/L (3.5-5.1); Sodium 131 mmol/L (136-145); Total Bilirubin 0.3 mg/dL (0.15-1.2)
[2023-12-17 16:29] LABS: Lactic Sepsis W/Reflex 1.4 mmol/L (0.5-2.2)
[2023-12-17 17:30] LABS: Bilirubin Urine Negative (Negative); Blood Urine Negative (Negative); Glucose Urine UA Negative (Normal); Ketones Urine Trace (Negative); Leukocyte Esterase Urine Trace (Negative); Nitrate Urine Negative (Negative); Protein Urine Negative (Negative); Specific Gravity, Urine 1.018 (1.005-1.030); Urine Appearance Clear (CLEAR); Urine Color Dark Yellow (Yellow); pH Urine 5.5 (5-7)
[2023-12-17 17:59] LABS: UA Manual Slide Review YES; UA Slide Review UA Slide Review Perf
[2023-12-17 18:00] LABS: Bacteria Urine TRACE /hpf; Calcium Oxalate Crystals Urine 15-25 /hpf; Mucus Urine TRACE /hpf; RBC Urine 0-4 /hpf (0-2); Squamous Epithelial Cell Urine 0-4 /hpf (0-5)
[2023-12-17 18:01] VITALS: BP 106/59; PULSE 98; RESP 18; O2SAT 91
[2023-12-17 18:01] LABS: Add Urine Culture? No; Hyaline Casts Urine 0-4 /lpf
[2023-12-17] MEDS: ondansetron 4 MG Tablet 8 MG PO (19:25)
[2023-12-17 19:51] VITALS: RESP 18; O2SAT 94
== END 2023-12-17 20:28 | disposition home or self-care (01) ==
PROVIDERS: Emergency Medicine; Emergency Provider Emergency Medicine; PCP Family Medicine
DX: N39.0 Urinary tract infection, site not specified (principal); R11.11 Vomiting without nausea; E86.0 Dehydration; Z79.01 Long term (current) use of anticoagulants; Z87.440 Personal history of urinary (tract) infections; E78.5 Hyperlipidemia, unspecified; Z85.3 Personal history of malignant neoplasm of breast; I10 Essential (primary) hypertension
CPT/HCPCS: 80053; 81001; 83605; 83690; 85025; 86140; 96361; 96374; 96375; 99284; J1642; J2405; J3490; J7030; Q0162

== ENCOUNTER → 2023-12-29 15:29 | Outpatient (BNVA) | payer MEDICARE, MEDICAID, SELFPAY | PROVIDERS: PCP Family Medicine; Visit Provider Internal Medicine Cardiovascular Disease | DX: I35.0 Nonrheumatic aortic (valve) stenosis (principal); I27.82 Chronic pulmonary embolism; I82.5Y3 Chronic embolism and thrombosis of unspecified deep veins of proximal lower extremity, bilateral; I10 Essential (primary) hypertension; E78.5 Hyperlipidemia, unspecified; E03.9 Hypothyroidism, unspecified | CPT/HCPCS: 99214 ==

== ENCOUNTER → 2024-01-12 11:04 | Outpatient (BNVA) | payer MEDICARE, MEDICAID, SELFPAY | PROVIDERS: PCP Family Medicine; Visit Provider Surgery | DX: Z09 Encounter for follow-up examination after completed treatment for conditions other than malignant neoplasm (principal); K92.2 Gastrointestinal hemorrhage, unspecified | CPT/HCPCS: 99204 ==

== ENCOUNTER 2024-03-15 12:57 | Oncology outpatient (recurring) (ONCR) | payer MEDICARE, MEDICAID, SELFPAY | END 2024-03-20 23:59 | disposition home or self-care (01) | PROVIDERS: PCP Family Medicine; Visit Provider Internal Medicine Medical Oncology | DX: C50.412 Malignant neoplasm of upper-outer quadrant of left female breast (principal); Z17.1 Estrogen receptor negative status [ER-]; Z79.899 Other long term (current) drug therapy; Z95.2 Presence of prosthetic heart valve; Z95.828 Presence of other vascular implants and grafts; Z53.9 Procedure and treatment not carried out, unspecified reason | CPT/HCPCS: 96523; 99214 ==

== ENCOUNTER 2024-04-02 14:30 | Oncology outpatient (recurring) (ONCR) | payer MEDICARE, MEDICAID, SELFPAY ==
--- NOTE | 2024-04-02 15:35 | PETR_ITS ---
PROCEDURE INFORMATION: Exam: PET/CT Skull Base to Mid-thigh Exam date and time: 04/02/2024 4:06 PM Age: 83 years old Clinical indication: Condition or disease; Primary cancer: Breast cancer left; Follow-up oncological assessment; Prior surgery; Surgery date: 6+ months; Surgery type: Gb, hysto LABS AND CLINICAL REPORTS: Glucose: 119 mg/dl Treatment strategy for malignancy (PET staging): Restaging (PS) TECHNIQUE: Imaging protocol: Following at least four-hour fasting and following the injection of radiopharmaceutical, low dose CT images were obtained. Then, PET images were obtained. Attenuation corrected images were constructed using the CT scan. Fused images of PET and CT were reviewed. The standardized uptake values (SUV) reported below are maximum values within a region of interest, expressed in gm/ml. Exam includes orbital meatal line to mid-thigh. SUV normalization method: BodyWeight Radiopharmaceutical: 11.72 mCi F-18 FDG (Fluorodeoxyglucose), IV. Time of imaging post radiopharmaceutical administration: 44 minutes Injection site: left ac COMPARISON: 1. PT PET skull to thigh INIT [id number] 01/04/2023 12:[address] abdomen pelvis w con* [id number] 12/13/2023 11:[address] angio chest PE protcl [id number] 12/08/2023 12:59 PM FINDINGS: Tubes, catheters and devices: Right chest port terminates at the right atrium. Brain: Visualized brain has normal physiologic uptake. Pharynx: No abnormal uptake. Larynx: No abnormal uptake. Lungs, pleura and trachea: No abnormal uptake. No consolidation or mass. 6 mm subpleural right upper lobe nodule on axial image 83 shows no FDG avidity, stable compared to November 2023. Mild bibasilar subsegmental atelectasis versus scarring. Heart: Normal physiologic uptake. Interval TAVR. Coronary arteries: Mild coronary artery calcification. Mediastinal space: No abnormal uptake. Liver: No abnormal uptake. Gallbladder and biliary ducts: No abnormal uptake. Prior cholecystectomy. Pancreas: No abnormal uptake. Spleen: No abnormal uptake. Adrenal glands: No abnormal uptake. Kidneys and ureters: Normal physiologic uptake. Right extrarenal pelvis. Stomach and bowel: No abnormal uptake. Reproductive: The uterus is surgically absent. Vasculature: No abnormal uptake. Mild systemic atherosclerotic calcification without aortic aneurysm. Lymph nodes: No abnormal uptake. No lymphadenopathy in the head, neck, chest, abdomen, pelvis, and extremities. Skeleton: Intervally fractured left L2 and L3 transverse processes with associated low-level FDG uptake. Mild osseous irregularity with heterogeneous sclerosis and low-level FDG uptake at the lower sacrum showing SUV max 3.2. Focal FDG uptake at the proximal subtrochanteric left femur without underlying CT abnormality shows SUV max 3.3 on axial image 260. Degenerative changes along the spine. Soft tissues: Irregular left outer breast mass measures 2.8 x 2.5 cm on axial image 88 and shows SUV max 11.2, previously 3.7 x 2.4 with SUV max 11.2. Note of differences in breast positioning in the setting of arms up on current exam and arms down on comparison PET-CT. Linear FDG uptake along czvfi-hgmuzln-uggx-left neck musculature, dtod-aelbvbb-rzwy-right muscles of mastication, along the right iliopsoas and right rectus femoris muscles without underlying CT abnormality is likely physiologic activation and/or strain. METRICS: Mediastinal blood pool: SUV mean 3.2, SUV max 3.7 Liver uptake: SUV mean 3.2, SUV max 3.9 PET/PET skull to thigh SUBS [id number] IMPRESSION: 1. FDG avid left breast mass. Although measurement appears decreased on today's exam compared to December 2022, suspect differences in positioning account for this, particularly given stable avid FDG uptake. 2. Indeterminate 6 mm subpleural right upper lobe nodule stable from November 2023 shows no FDG avidity but below size threshold for accurate FDG assessment, new from December 2022. 3. Focal low-level FDG uptake at the proximal left femur without underlying CT abnormality could be benign or possibly metastasis, consider further evaluation with MRI. 4. Fractured left L2 and L3 transverse processes. 5. Lower sacral findings may also represent interval posttraumatic change. In the absence of interval trauma, consideration for metastatic disease.
== END 2024-04-20 23:59 | disposition home or self-care (01) ==
LOC: RAD 04-03 → ONCMED 04-05 09:43
PROVIDERS: PCP Family Medicine; Visit Provider Internal Medicine Medical Oncology
DX: C50.011 Malignant neoplasm of nipple and areola, right female breast; R91.1 Solitary pulmonary nodule; M85.9 Disorder of bone density and structure, unspecified; M84.48XA Pathological fracture, other site, initial encounter for fracture; X58.XXXA Exposure to other specified factors, initial encounter
CPT/HCPCS: 78815; A9552

== ENCOUNTER 2024-04-21 06:30 | Outpatient (RCR) | payer MEDICARE, MEDICAID, SELFPAY | END 2024-05-21 23:59 | disposition home or self-care (01) | LOC: WPT 06:30 | PROVIDERS: Visit Provider Internal Medicine | DX: R42 Dizziness and giddiness (principal) | CPT/HCPCS: 97163 ==

== ENCOUNTER 2024-04-22 15:34 | Observation (INO) | payer MEDICARE, MEDICAID, SELFPAY ==
[2024-04-22] VITALS (8 sets, daily range): BP systolic 85–120; BP diastolic 53–70; PULSE 86–97; RESP 16–18; TEMP 36.4–37.4; O2SAT 93–98; BMI 33.9
--- NOTE | 2024-04-22 15:38 | XRR_ITS ---
PROCEDURE INFORMATION: Exam: XR Chest Exam date and time: 04/22/2024 4:07 PM Age: 83 years old Clinical indication: Other: Weakness TECHNIQUE: Imaging protocol: Radiologic exam of the chest. Views: 1 view. COMPARISON: CR XR chest 1V portable [id number] 12/13/2023 10:42 AM FINDINGS: Tubes, catheters and devices: Right chest port catheter is demonstrated. Catheter tip overlies the right heart region. Transcatheter aortic valve replacement device overlies the mediastinum. Lungs: Linear density identified within bilateral lower lungs. The bilateral upper lungs appear clear. Pleural spaces: No pleural effusion. No pneumothorax. Heart/Mediastinum: The cardiac silhouette appears borderline prominent. Vasculature: Moderate atherosclerotic calcification demonstrated within the aorta. Tortuous and ectatic aorta is demonstrated. Bones/joints: Diffusely decreased bone density. Generalized bony degenerative changes. Soft tissues: This study is limited by patient's body habitus. XR/XR chest 1V portable [id number] IMPRESSION: 1. Linear bilateral lower chest pulmonary atelectasis, or scarring. 2. Borderline prominence of the cardiac silhouette. 3. Degenerative and postsurgical changes are demonstrated, as described above.
--- NOTE | 2024-04-22 15:39 | ECG_ITS ---
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 Measurements Intervals [place] Rate: 87 P: 75 ID: [id number] QRS: -40 QRSD: 153 T: 84 QT: 410 QTc: 495 Interpretive Statements SINUS RHYTHM INTRAVENTRICULAR CONDUCTION DELAY [130+ ms QRS DURATION] LATERAL MYOCARDIAL INFARCTION , PROBABLY RECENT [40+ ms Q WAVE AND/OR ST/T ABNORMALITY IN I/aVL/V5/V6] INFERIOR MYOCARDIAL INFARCTION , OF INDETERMINATE AGE [40+ ms Q WAVE AND/OR ST/T ABNORMALITY IN II/aVF] Compared to ECG 12/13/2023 10:50:52 Intraventricular conduction delay now present Myocardial infarct finding now present Electronically Signed On 04-22-2024 16:07:39 PROFESSOR [employer] by Shabbir Momin M.D. [email or web address]
--- NOTE | 2024-04-22 15:40 | W.ED.WEAKNES ---
HPI - Weakness General: Chief complaint: Weakness Stated complaint: weakness Time Seen by Provider: 04/22/24 15:35 History of Present Illness: 83-year-old female with a history of aortic valve replacement on chronic anticoagulation, DVT PE, hyperlipidemia, breast cancer, hypertension, who presents emergency room with generalized weakness. She says she was being treated for UTI with Macrobid. She says her urinary symptoms are somewhat improved. She just felt lightheaded and dizzy. She is felt generalized weakness. No altered mental status. No focal motor deficits. No chest pain. No shortness of breath. No abdominal pain. No nausea or vomiting. Review of Systems Narrative: Constitutional symptoms: Negative except as documented in HPI. Skin symptoms: Negative except as documented in HPI. Eye symptoms: Negative except as documented in HPI. ENMT symptoms: Negative except as documented in HPI. Respiratory symptoms: Negative except as documented in HPI. Cardiovascular symptoms: Negative except as documented in HPI. Gastrointestinal symptoms: Negative except as documented in HPI. Genitourinary symptoms: Negative except as documented in HPI. Musculoskeletal symptoms: Negative except as documented in HPI. Neurologic symptoms: Negative except as documented in HPI. Psychiatric symptoms: Negative except as documented in HPI. Endocrine symptoms: Negative except as documented in HPI. PFSH ED PFSH: Medical History 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 Hypothyroidism COVID-2021 History of echocardiogram 06/2023 EF 60%, Grade I/IV diastolic dysfunction, severe AV stenosis 0.99, mean gradient 40.2 mmHg, peak velocity 4.19 ms 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 Primary osteoarthritis of left knee Iron deficiency anemia Dyslipidemia Port-A-Cath in place placed 12/2022 Adrenal insufficiency hospital stay 08/2023 Reversible airway obstruction Lesion of right [place] ureter History of recurrent UTI (urinary tract infection) Pulmonary nodules Interstitial lung disease Asthma Breast cancer Hydronephrosis of right kidney Osteoporosis Arthritis Aortic stenosis Hypertension DVT (deep venous thrombosis) Pulmonary embolism Obesity Surgical History History of cardiac catheterization 07/2023 no obstructive disease Hx of tubal ligation Hx of cystoscopy Hx of colonoscopy Age 65 Hx of cholecystectomy H/O: hysterectomy Hx of cataract surgery S/P tonsillectomy Family History Father , AT 92 Congestive heart failure (CHF) Mother , AT 100 of unknown cause Other CAD (coronary artery disease) Cancer Diabetes Hyperlipidemia Hypertension Stroke Denies family history of Psychiatric illness Chronic kidney disease (CKD) Suicide Family history of premature coronary artery disease Lung disease Social History Smoking and tobacco/nicotine status: never used tobacco/nicotine Alcohol intake: never Substance/Drug Use: never Marital status: / Current occupational status: retired and disabled Physical Exam Narrative: EXAM NARRATIVE: General: Alert, no acute distress. Skin: Warm, dry. Head: Normocephalic, atraumatic. Neck: Supple, trachea midline. Eye: Extraocular movements are intact. Ears, nose, mouth and throat: mucosa moist. Cardiovascular: Regular, Normal peripheral perfusion. Respiratory: Lungs are clear to auscultation, respirations are non-labored, breath sounds are equal, Symmetrical chest wall expansion. Gastrointestinal: Soft, Nontender, Non distended Musculoskeletal: Normal ROM, no deformity. Neurological: Alert and oriented, No focal neurological deficit observed. Psychiatric: Cooperative, appropriate mood & affect. Course Vital Signs: Vital signs: Vital Signs Temperature 97.6 F 04/22/24 15:38 Pulse Rate 89 04/22/24 17:35 Respiratory Rate 18 04/22/24 17:35 Blood Pressure 99/54 04/22/24 17:35 Pulse Oximetry 98 04/22/24 17:35 Oxygen Delivery Me thod Room Air 04/22/24 17:35 MDM - Weakness Medical Decision Making Medical decision making: Differential diagnosis for patient presenting with generalized weakness including but not limited to and based on the above HPI, review of systems and physical exam: Sepsis. Dehydration. Renal failure. Electrolyte abnormalities. Anemia. Congestive heart failure. Hypotension. Coronary syndrome. Hepatitis. Cirrhosis. Infections such as pneumonia, urinary tract infection, [place] illness, Cellulitis, Viral infections including influenza and Covid-19. Workup: labwork and lab/exam driven imaging ordered to evaluate, rule in and rule out above pathologies. EKG: Time 1539. Rate 87. Normal sinus rhythm, No ST-T changes, no ectopy, left bundle branch block, This was reviewed and interpreted by myself the ER physician at 1542. This is change from November EKG, however she has had aortic valve replacement in the interim. She is having no chest pain. We are running serial markers and EKGs. Chest x-ray: Right-sided port is in place. No acute process. No infiltrate. No pneumothorax. This was reviewed and interpreted by myself the emergency room physician. I also reviewed the radiology report. Lab Review: Laboratory results were reviewed and interpreted by myself the emergency room physician. No leukocytosis but lactate is slightly elevated at 2.7. No renal failure. Stable anemia. Urine is significantly infected with nitrite positive. Greater than 100 whites. 4+ bacteria. Patient is borderline for sepsis. I reviewed the patient's medical record. Reexamination: Patient remained stable. No increased work of breathing. No altered mental status. No focal motor deficits. Although she has been slightly hypotensive. This is not usual for her. Consultation: I spoke with Dr. oCyle who is on-call for the hospitalist service who agrees to admission. Assessment and plan: Urinary tract infection Weakness Hypotension ?Possible early sepsis. She has a mildly elevated lactate but white count is not elevated. Blood pressure is soft. Source is urine. ?1.5 L normal saline bolus. Cautious fluid administration given her history of congestive heart failure and valve replacement. -Cefepime. -Sepsis quality measures. -Lactic acid with a reflex was ordered. -Blood cultures were ordered. -I discussed the patient with the hospitalist on-call who is admitting the patient. - Discussed findings and plan with patient. Answered any questions. - All laboratory values were reviewed and interpreted personally by myself, the ER physician - All imaging was reviewed and interpreted personally by myself, the ER physician. - Evaluation and treatment of this problem were appropriate in the emergency setting Critical care -I spent a total of >35 minutes of critical care time managing the patient, independent of any other practitioner. -The time involved in the performance of separately reportable procedures was not counted towards critical care time. Lab Data 04/22/24 15:54 04/22/24 15:54 Radiology Impressions Chest X-Ray 04/22/24 15:38 IMPRESSION: 1. Linear bilateral lower chest pulmonary atelectasis, or scarring. 2. Borderline prominence of the cardiac silhouette. 3. Degenerative and postsurgical changes are demonstrated, as described above. Laboratory Results WBC 4.55 10^3/uL (3.29-11.43) 04/22/24 15:54 RBC 3.48 10^6/uL (3.85-5.65) L 04/22/24 15:54 Hgb 11.20 g/dL (11.27-16.99) L 04/22/24 15:54 Hct 34.4 % (36-47) L 04/22/24 15:54 MCV 98.9 fl (85-98) H 04/22/24 15:54 MCH 32.2 pg (27-33) 04/22/24 15:54 MCHC 32.6 g/dL (30-55) 04/22/24 15:54 RDW 13.7 % (12.1-15.1) 04/22/24 15:54 Plt Count 169 10^3/cmm (157-399) 04/22/24 15:54 MPV 9.8 fL (7.4-10.4) 04/22/24 15:54 Neut % (Auto) 57.8 % 04/22/24 15:54 Lymph % (Auto) 20.7 % 04/22/24 15:54 [place] % (Auto) 12.7 % 04/22/24 15:54 Eos % (Auto) 7.7 % 04/22/24 15:54 Baso % (Auto) 0.9 % 04/22/24 15:54 Neut # (Auto) 2.63 10^3/uL (1.8-7.7) 04/22/24 15:54 Lymph # (Auto) 0.9 10^3/uL (0.8-4.8) 04/22/24 15:54 [place] # (Auto) 0.6 10^3/uL (0.2-0.9) 04/22/24 15:54 Eos # (Auto) 0.4 10^3/uL (0.0-0.8) 04/22/24 15:54 Baso # (Auto) 0.0 10^3/uL (0.0-0.1) 04/22/24 15:54 Nucleated RBC % (auto) 0 % 04/22/24 15:54 Nucleated RBCs # 0.0 /100WBC 04/22/24 15:54 Sodium 136 mmol/L (136-145) 04/22/24 15:54 Potassium 3.7 mmol/L (3.5-5.1) 04/22/24 15:54 Chloride 102 mmol/L (98-107) 04/22/24 15:54 Carbon Dioxide 23 mmol/L (22-29) 04/22/24 15:54 Anion Gap 14.7 (5-19) 04/22/24 15:54 BUN 13 mg/dL (8-23) 04/22/24 15:54 Creatinine 0.8 mg/dL (0.5-0.9) 04/22/24 15:54 GFR Calculation Not Reportable 04/22/24 15:54 Glucose 99 mg/dL (65-115) 04/22/24 15:54 Calculated Osmolality 282 mOsm/kg (285-295) L 04/22/24 15:54 Lactic Acid 2.4 mmol/L (0.5-2.2) H 04/22/24 15:54 Lactic Acid (Sepsis) 1.9 mmol/L (0.5-2.2) 04/22/24 18:09 Calcium 10.4 mg/dL (8.5-10.5) 04/22/24 15:54 Total Bilirubin 0.4 mg/dL (0.15-1.2) 04/22/24 15:54 AST 19 U/L (0-32) 04/22/24 15:54 ALT 14 U/L (0-33) 04/22/24 15:54 Alkaline Phosphatase 95 U/L (35-105) 04/22/24 15:54 Troponin T Baseline 16 ng/L (0-10) H 04/22/24 15:54 Troponin T 120 Minute 17.22 ng/L (0-10) H 04/22/24 18:09 Delta Troponin T 1.22 ABS# (0-10) 04/22/24 18:09 Total Protein 5.7 g/dL (6.6-8.7) L 04/22/24 15:54 Albumin 3.3 g/dL (3.5-5.2) L 04/22/24 15:54 Globulin 2.4 g/dL (1.3-4.6) 04/22/24 15:54 Urine Color Dark yellow (Yellow) A 04/22/24 17:30 Urine Appearance Turbid (CLEAR) A 04/22/24 17:30 Urine pH 7.0 (5-7) 04/22/24 17:30 Ur Specific [place] 1.019 (1.005-1.030) 04/22/24 17:30 Urine Protein 1+ (Negative) A 04/22/24 17:30 Urine Glucose (UA) Negative (Normal) 04/22/24 17:30 Urine Ketones Trace (Negative) 04/22/24 17:30 Urine Blood 1+ (Negative) A 04/22/24 17:30 Urine Nitrate Positive (Negative) A 04/22/24 17:30 Urine Bilirubin Negative (Negative) 04/22/24 17:30 Urine Urobilinogen 0.2 mg/dL (Negative) 04/22/24 17:30 Ur Leukocyte Esterase 3+ (Negative) A 04/22/24 17:30 Urine RBC 3-5 /hpf (0-2) 04/22/24 17:30 Urine WBC >100 /hpf (0-5) H 04/22/24 17:30 Ur Squamous Epith Cells 0-5 /hpf (0-5) 04/22/24 17:30 Urine Bacteria 3+ /hpf (NONE) H 04/22/24 17:30 Hyaline Casts 0-4 /lpf H 04/22/24 17:30 Coronavirus (PCR) Negative (Negative) 04/22/24 16:35 Influenza A (PCR) Negative (Negative) 04/22/24 16:35 Influenza Type B (PCR) Negative (Negative) 04/22/24 16:35 RSV (PCR) Negative (Negative) 04/22/24 16:35 All radiology interpretation(s) finalized by discharge Discharge Plan Discharge Patient Disposition: Admitted As Inpatient Clinical Impression: Urinary tract infection, Weakness Coding Level of Care Code ED District Commercial Superintendent for Chg Fwd Related Data Home Medications Medication Instructions Recorded Confirmed meclizine 25 mg tablet 25 mg PO TID PRN Dizziness 12/28/19 04/22/24 potassium chloride 10 mEq 10 meq PO DAILY 12/28/19 04/22/24 capsule,extended release tolterodine 4 mg capsule,extended 4 mg PO DAILY 12/28/19 04/22/24 release 24 hr denosumab 60 mg/mL subcutaneous 60 mg SUBCUT Q6M 06/26/20 04/22/24 syringe (Prolia) cyanocobalamin (vitamin B-12) 2,500 mcg PO DAILY 07/19/21 04/22/24 2,500 mcg tablet fluoxetine 40 mg capsule 40 mg PO DAILY 12/08/23 04/22/24 lorazepam 0.5 mg tablet 0.5 mg PO DAILY 12/08/23 04/22/24 budesonide 0.5 mg/2 mL suspension 0.5 mg inhalation BID PRN 12/15/23 04/22/24 for nebulization Shortness Of Breath ropinirole 0.25 mg tablet 0.25 mg PO DAILY 12/15/23 04/22/24 levothyroxine 125 mcg tablet 125 mcg PO DAILY 03/15/24 04/22/24 tizanidine 2 mg tablet 2 mg PO DAILY 03/15/24 04/22/24 acetaminophen 325 mg tablet 325 mg PO QID PRN Pain 04/22/24 04/22/24 fluticasone 250 mcg-salmeterol 50 1 inh inhalation BID 04/22/24 04/22/24 mcg/dose blistr powdr for inhalation (Advair Diskus) prednisone 5 mg tablet 5 mg PO DAILY 04/22/24 04/22/24 Previous Rx's Medication Instructions Recorded Nebulizer and accessory kit #1 ea 02/05/23 custom inserts #1 ea 08/06/23 apixaban 5 mg tablet (Eliquis) 5 mg PO BID #60 tabs 09/11/23 Allergies Allergy/AdvReac Type Severity Reaction Status Date / Time tetanus toxoid, adsorbed Allergy Severe unknown Verified 03/15/24 12:55 ciprofloxacin [From Cipro] Allergy Unknown ADR-Vomitin Verified 03/15/24 12:55 g erythromycin base Allergy Unknown ADR-Vomitin Verified 03/15/24 12:55 g gabapentin [From Neurontin] Allergy Unknown unknown Verified 03/15/24 12:55 hydrocodone [From Vicodin] Allergy Unknown unknown Verified 03/15/24 12:55 Influenza Virus Vaccines Allergy Unknown unknown Verified 03/15/24 12:55 tramadol [From Ultram] Allergy Unknown unknown Verified 03/15/24 12:55 aspirin Allergy stomach Verified 03/15/24 12:55 pain, unbearable egg Allergy unknown Verified 03/15/24 12:55 Fish Containing Products Allergy ALGY-Rash Verified 03/15/24 12:55 NSAIDS (Non-Steroidal Allergy heartburn, Verified 03/15/24 12:55 Anti-Inflamma stomach pain Tetanus Vaccines and Toxoid Allergy unknown Verified 03/15/24 12:55 adhesive AdvReac Unknown unknown Verified 03/15/24 12:55
[2024-04-22 16:05] LABS: Basophils % 0.9 %; Eosinophils # 0.4 10^3/uL (0.0-0.8); Eosinophils % 7.7 %; Hematocrit 34.4 % (36-47); Lymphocytes # 0.9 10^3/uL (0.8-4.8); Lymphocytes % 20.7 %; Mean Corpuscular HGB Conc 32.6 g/dL (30-55); Mean Corpuscular Hemoglobin 32.2 pg (27-33); Mean Corpuscular Volume 98.9 fl (85-98); Mean Platelet Volume 9.8 fL (7.4-10.4); Monocytes # 0.6 10^3/uL (0.2-0.9); Monocytes % 12.7 %; Neutrophils # 2.63 10^3/uL (1.8-7.7); Neutrophils % 57.8 %; Nucleated Red Blood Cells % 0 %; Platelet Count 169 10^3/cmm (157-399); Red Blood Count 3.48 10^6/uL (3.85-5.65); Red Cell Distribution Width 13.7 % (12.1-15.1); White Blood Count 4.55 10^3/uL (3.29-11.43)
[2024-04-22 16:20] LABS: Troponin(5th) Baseline 16 ng/L (0-10)
[2024-04-22 16:21] LABS: Lactic Sepsis W/Reflex 2.4 mmol/L (0.5-2.2)
[2024-04-22 16:27] LABS: Alanine Aminotransferase 14 U/L (0-33); Albumin Level 3.3 g/dL (3.5-5.2); Alkaline Phosphatase 95 U/L (35-105); Anion Gap 14.7 (5-19); Aspartate Amino Transferase 19 U/L (0-32); Blood Urea Nitrogen 13 mg/dL (8-23); Calcium 10.4 mg/dL (8.5-10.5); Carbon Dioxide 23 mmol/L (22-29); Chloride 102 mmol/L (98-107); Globulin 2.4 g/dL (1.3-4.6); Glucose 99 mg/dL (65-115); Osmolality Calculated 282 mOsm/kg (285-295); Potassium 3.7 mmol/L (3.5-5.1); Sodium 136 mmol/L (136-145); Total Bilirubin 0.4 mg/dL (0.15-1.2); Total Protein 5.7 g/dL (6.6-8.7)
[2024-04-22] MEDS: sodium chloride 0.9% 500 ML 999 ML IV (16:47)
[2024-04-22 17:51] LABS: Reflex Lactate Order REFLEX LACTIC ORDERD
--- NOTE | 2024-04-22 17:55 | ECG_ITS ---
Must See [place] Test Date: 2024-04-22 Pat Name: Janet Calvillo Department: Room: Gender: Female Bell Captain: : 1940 Requested By: Ese Albarado Order Number: [id number] Lexa MD: Ryann Boo M.D. Measurements Intervals [place] Rate: 94 P: 42 WY: 160 QRS: -37 QRSD: 142 T: 97 QT: 403 QTc: 506 Interpretive Statements SINUS RHYTHM INTRAVENTRICULAR CONDUCTION DELAY [130+ ms QRS DURATION] LATERAL MYOCARDIAL INFARCTION , PROBABLY RECENT [40+ ms Q WAVE AND/OR ST/T ABNORMALITY IN I/aVL/V5/V6] INFERIOR MYOCARDIAL INFARCTION , OF INDETERMINATE AGE [40+ ms Q WAVE AND/OR ST/T ABNORMALITY IN II/aVF] ACUTE DC Compared to ECG 04/22/2024 15:39:54 No significant changes Electronically Signed On 04-23-2024 21:53:47 PLASTERER TENDER by Ryann Boo M.D. [email or web address]
[2024-04-22 17:57] LABS: Covid PCR NEGATIVE (Negative); Influenza A NEGATIVE (Negative); Influenza B NEGATIVE (Negative); Respiratory Syncytial Virus Ce NEGATIVE (Negative)
[2024-04-22 18:03] LABS: Bilirubin Urine Negative (Negative); Blood Urine 1+ (Negative); Glucose Urine UA Negative (Normal); Ketones Urine Trace (Negative); Leukocyte Esterase Urine 3+ (Negative); Nitrate Urine Positive (Negative); Protein Urine 1+ (Negative); Specific Gravity, Urine 1.019 (1.005-1.030); Urine Appearance Turbid (CLEAR); Urine Color Dark Yellow (Yellow); Urobilinogen Urine 0.2 mg/dL (Negative)
[2024-04-22 18:09] LABS: Bacteria Urine 3+ /hpf; Hyaline Casts Urine 0-4 /lpf; Squamous Epithelial Cell Urine 0-5 /hpf (0-5); WBC Urine >100 /hpf (0-5)
[2024-04-22 18:18] LABS: Add Urine Culture? Yes
[2024-04-22 18:51] LABS: Lactic Acid level (Lactate) 1.9 mmol/L (0.5-2.2)
[2024-04-22 18:53] LABS: Troponin 5 2HR 17.22 ng/L (0-10); Troponin 5 2HR Delta 1.22 ABS# (0-10)
--- NOTE | 2024-04-22 19:08 | PC.NURSE ---
this nurse assumed pt care from Madison LESTER at 1900.
[2024-04-22] MEDS: sodium chloride 0.9% 1,000 ML 999 ML IV (19:24)
[2024-04-22] MEDS: cefepime 2,000 mg SDV 2000 MG IVP (19:24)
--- NOTE | 2024-04-22 19:44 | PM.HP ---
Providers/Chief Complaint Admitting Physician: Madisyn Oliver MD Primary Care Provider: Sánchez Macario Chief Complaint: weakness History of Present Illness Janet Calvillo is a 83 year old female who has history of DVT, severe aortic stenosis status post TAVR, invasive ductal carcinoma of the left breast, HFpEF, adrenal insufficiency, on chronic steroid lives with her daughter, presented with chief, generalized weakness and fatigue, in the ER she has been diagnosed with UTI. Patient uses a walker at baseline stating that she has had 15 falls July till now. She is on anticoagulating agent has history of TAVR. No syncopal events. No active chest pain. Not endorsing fever. Does endorse dysuria. On arrival she was hypotensive, looked extremely dehydrated, dehydration related lactic acid which improved with IV fluid hydration, no fever, no leukocytosis, no sign of endorgan damage, UA consistent with UTI, patient is stating that she had 1 episode of vomiting before ambulance picked her up. Patient is describing her dizziness as room spinning around her, I will stop meclizine request Angie-Hallpike maneuver? with physical therapy in the morning Patient take steroids for concern related to adrenal insufficiency, will give her stress dose steroids for now secondary to low blood pressure. Patient would like to discuss contraindication for anticoagulating agent with her recurrent falls. Review of Systems Const: Reports: chills Eyes: Denies: change in vision ENMT: Denies: throat pain Card: Denies: chest pain Resp: Denies: dyspnea GI: Reports: nausea and vomiting : Reports: difficulty voiding Musc: Reports: back pain Neuro: Reports: frequent falls, dizziness and vertigo Medications/Allergies Home Medications Medication Instructions Recorded Confirmed Last Taken Type meclizine 25 mg tablet 25 mg PO TID PRN Dizziness 12/28/19 04/22/24 09/04/23 History potassium chloride 10 mEq 10 meq PO DAILY 12/28/19 04/22/24 12/12/23 History capsule,extended release tolterodine 4 mg capsule,extended 4 mg PO DAILY 12/28/19 04/22/24 12/12/23 History release 24 hr denosumab 60 mg/mL subcutaneous 60 mg SUBCUT Q6M 06/26/20 04/22/24 08/06/23 06:00 History syringe (Prolia) cyanocobalamin (vitamin B-12) 2,500 mcg PO DAILY 07/19/21 04/22/24 12/12/23 History 2,500 mcg tablet Nebulizer and accessory kit #1 ea 02/05/23 04/22/24 Unknown Rx custom inserts #1 ea 08/06/23 04/22/24 Unknown Rx apixaban 5 mg tablet (Eliquis) 5 mg PO BID #60 tabs 09/11/23 04/22/24 12/12/23 Rx fluoxetine 40 mg capsule 40 mg PO DAILY 12/08/23 04/22/24 12/12/23 History lorazepam 0.5 mg tablet 0.5 mg PO DAILY 12/08/23 04/22/24 12/12/23 History budesonide 0.5 mg/2 mL suspension 0.5 mg inhalation BID PRN 12/15/23 04/22/24 Unknown History for nebulization Shortness Of Breath ropinirole 0.25 mg tablet 0.25 mg PO DAILY 12/15/23 04/22/24 12/12/23 History levothyroxine 125 mcg tablet 125 mcg PO DAILY 03/15/24 04/22/24 Unknown History tizanidine 2 mg tablet 2 mg PO DAILY 03/15/24 04/22/24 Unknown History acetaminophen 325 mg tablet 325 mg PO QID PRN Pain 04/22/24 04/22/24 Unknown History fluticasone 250 mcg-salmeterol 50 1 inh inhalation BID 04/22/24 04/22/24 Unknown History mcg/dose blistr powdr for inhalation (Advair Diskus) prednisone 5 mg tablet 5 mg PO DAILY 04/22/24 04/22/24 Unknown History Allergies Allergy/AdvReac Type Severity Reaction Status Date / Time tetanus toxoid, adsorbed Allergy Severe unknown Verified 03/15/24 12:55 ciprofloxacin [From Cipro] Allergy Unknown ADR-Vomitin Verified 03/15/24 12:55 g erythromycin base Allergy Unknown ADR-Vomitin Verified 03/15/24 12:55 g gabapentin [From Neurontin] Allergy Unknown unknown Verified 03/15/24 12:55 hydrocodone [From Vicodin] Allergy Unknown unknown Verified 03/15/24 12:55 Influenza Virus Vaccines Allergy Unknown unknown Verified 03/15/24 12:55 tramadol [From Ultram] Allergy Unknown unknown Verified 03/15/24 12:55 aspirin Allergy stomach Verified 03/15/24 12:55 pain, unbearable egg Allergy unknown Verified 03/15/24 12:55 Fish Containing Products Allergy ALGY-Rash Verified 03/15/24 12:55 NSAIDS (Non-Steroidal Allergy heartburn, Verified 03/15/24 12:55 Anti-Inflamma stomach pain Tetanus Vaccines and Toxoid Allergy unknown Verified 03/15/24 12:55 adhesive AdvReac Unknown unknown Verified 03/15/24 12:55 PFSH Acute PFSH: Medical History 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 Hypothyroidism COVID-2021 History of echocardiogram 06/2023 EF 60%, Grade I/IV diastolic dysfunction, severe AV stenosis 0.99, mean gradient 40.2 mmHg, peak velocity 4.19 ms 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 Primary osteoarthritis of left knee Iron deficiency anemia Dyslipidemia Port-A-Cath in place placed 12/2022 Adrenal insufficiency hospital stay 08/2023 Reversible airway obstruction Lesion of right [place] ureter History of recurrent UTI (urinary tract infection) Pulmonary nodules Interstitial lung disease Asthma Breast cancer Hydronephrosis of right kidney Osteoporosis Arthritis Aortic stenosis Hypertension DVT (deep venous thrombosis) Pulmonary embolism Obesity Surgical History History of cardiac catheterization 07/2023 no obstructive disease Hx of tubal ligation Hx of cystoscopy Hx of colonoscopy Age 65 Hx of cholecystectomy H/O: hysterectomy Hx of cataract surgery S/P tonsillectomy Family History Father , AT 92 Congestive heart failure (CHF) Mother , AT 100 of unknown cause Other CAD (coronary artery disease) Cancer Diabetes Hyperlipidemia Hypertension Stroke Denies family history of Psychiatric illness Chronic kidney disease (CKD) Suicide Family history of premature coronary artery disease Lung disease Social History Smoking and tobacco/nicotine status: never used tobacco/nicotine Alcohol intake: never Substance/Drug Use: never Marital status: / Current occupational status: retired and disabled Vitals/I&O/Wt Last Vital Signs Temp 97.6 F 04/22/24 15:38 Pulse 94 04/22/24 19:32 Resp 16 04/22/24 19:32 BP 99/55 04/22/24 19:32 Pulse Ox 93 04/22/24 19:32 O2 Del Method Room Air 04/22/24 17:35 04/22/24 04/22/24 04/22/24 06:59 14:59 22:59 Intake Total 500 / 500 Balance 500 / 500 Weight last 48 hrs Weight 95.254 kg Physical Exam Narrative: Patient is extremely dehydrated GCS 15 When I offered her water patient started coughing GCS 15 I did not appreciate any focal deficit She is able to move her extremities Able to answer my questions Pleasant and cooperative Dry mucous membrane S1, S2 variable Abdomen soft Currently on room air Data 04/22/24 15:54 04/22/24 15:54 Micro: Microbiology 04/22/24 18:05 Blood Culture - Preliminary Blood SPECIMEN COLLECTED 04/22/24 18:09 Blood Culture - Preliminary Blood SPECIMEN COLLECTED A&P Assessment and plan (1) Severe aortic valve stenosis: (2) Pulmonary embolism: Qualifiers: Pulmonary embolism type: unspecified Chronicity: chronic Acute cor pulmonale presence: without acute cor pulmonale Qualified Code(s): I27.82 - Chronic pulmonary embolism (3) DVT (deep venous thrombosis): Qualifiers: DVT location: lower extremity Affected thrombotic vein of extremity: unspecified lower extremity proximal vein Chronicity: chronic Laterality: bilateral Qualified Code(s): I82.5Y3 - Chronic embolism and thrombosis of unspecified deep veins of proximal lower extremity, bilateral (4) Hypothyroidism: Qualifiers: Hypothyroidism type: acquired Qualified Code(s): E03.9 - Hypothyroidism, unspecified (5) Adrenal insufficiency: (6) Urinary tract infection: (7) Iron deficiency anemia: Qualifiers: Iron deficiency anemia type: other iron deficiency Qualified Code(s): D50.8 - Other iron deficiency anemias (8) Primary osteoarthritis of left knee: (9) Interstitial lung disease: (10) Physical deconditioning: (11) Weakness: (12) Weakness: Plan UTI without sign of sepsis Hypotension with underlying chronic steroid use Concern for adrenal insufficiency will give her stress dose steroid IV fluids to be continued Clinically patient is extremely dry No active sign of meningitis or stroke Recurrent falls related to dizziness patient describes her dizziness as room spinning around her, I will stop her meclizine request physical therapy to do Union-Hallpike maneuver and possible Natacha's Patient uses a walker for ambulation, lives with her daughter She would like to discuss contraindication for continuation of Eliquis secondary to recurrent falls stating that she has had 15 falls since July last year Since she will be supervised in the hospital I will continue her Eliquis for now for her DVT/PE history History of GI bleed status post EGD which was unremarkable Iron-deficiency anemia: Stable Stage III breast cancer: Follows up with oncology patient will need a PET scan as a new baseline, has been referred to breast surgeon at [facility] status post neoadjuvant treatment for locally advanced breast cancer Full code Cardiac diet History of TAVR for aortic valve stenosis Resting tremors take ropinirole, does not have any diagnosis of Parkinson's Attestations Medical Necessity Statement*: Anticipating discharge within 48 hours Diagnoses Severe aortic valve stenosis I35.0 Chronic pulmonary embolism without acute cor pulmonale, unspecified pulmonary embolism type I27.82 Pulmonary embolism type: unspecified Chronicity: chronic Acute cor pulmonale presence: without acute cor pulmonale Chronic deep vein thrombosis (DVT) of proximal vein of both lower extremities I82.5Y3 DVT location: lower extremity Affected thrombotic vein of extremity: unspecified lower extremity proximal vein Chronicity: chronic Laterality: bilateral Acquired hypothyroidism E03.9 Hypothyroidism type: acquired Adrenal insufficiency E27.40 Urinary tract infection N39.0 Other iron deficiency anemia D50.8 Iron deficiency anemia type: other iron deficiency Primary osteoarthritis of left knee M17.12 Interstitial lung disease J84.9 Physical deconditioning R53.81 Weakness R53.1
--- NOTE | 2024-04-22 19:48 | CTR_ITS ---
PROCEDURE INFORMATION: Exam: CT Abdomen And Pelvis Without Contrast Exam date and time: 04/22/2024 7:59 PM Age: 83 years old Clinical indication: Other: Weakness; Additional info: UTI TECHNIQUE: Imaging protocol: Computed tomography of the abdomen and pelvis without contrast. Radiation optimization: All CT scans at this facility use at least one of these dose optimization techniques: automated exposure control; mA and/or kV adjustment per patient size (includes targeted exams where dose is matched to clinical indication); or iterative reconstruction. COMPARISON: PT PET skull to thigh SUBS [id number] 04/02/2024 4:06 PM RADIATION DOSE METRICS: Total DLP (mGy-cm): 824.42 FINDINGS: Lungs: The lung bases are clear. Heart: Heart size is within normal limits. There is no pericardial effusion or pericardial thickening. Liver: The liver is normal. No hepatic masses are identified. Gallbladder and biliary ducts: The gallbladder is surgically absent. There is no ductal dilatation. Pancreas: The pancreas is normal. Spleen: The spleen is normal. Adrenal glands: The adrenal glands are normal. Kidneys and ureters: No renal calcifications are identified. There is no hydronephrosis. Stomach and bowel: Mild fatty infiltration of the cecum and appendix. There is no large or small bowel obstruction. There is no evidence of bowel wall thickening. Appendix: A normal appendix is identified. Intraperitoneal space: No inflammatory changes are identified. There is no free fluid or fluid collection seen. There is no pneumoperitoneum. Vasculature: Atherosclerotic calcifications of the aorta are present. No aneurysm is identified. Lymph nodes: No enlarged lymph nodes are identified. Urinary bladder: The bladder is unremarkable. Reproductive: The uterus is absent. Bones/joints: No acute osseous abnormalities are seen. Soft tissues: Tiny periumbilical hernia containing only fat. CT/CT abdomen pelvis wo con [id number] IMPRESSION: 1. No acute intra-abdominal or pelvic process. 2. No evidence of urolithiasis. 3. Other nonemergent findings above.
[2024-04-22] MEDS: hydrocortisone 100 mg/2 mL SDV IVP (21:29)
[2024-04-22 21:32] LABS: Procalcitonin 0.13 ng/mL (0-0.5)
--- NOTE | 2024-04-22 21:38 | ECG_ITS ---
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 Measurements Intervals [place] Rate: 88 P: 42 ME: 154 QRS: -22 QRSD: 146 T: 96 QT: 428 QTc: 520 Interpretive Statements SINUS RHYTHM LEFT BUNDLE BRANCH BLOCK [120+ ms QRS DURATION, 80+ ms Q/S IN V1/V2, 85+ ms R IN I/aVL/V5/V6] Compared to ECG 04/22/2024 17:55:18 Left bundle-branch block now present Intraventricular conduction delay no longer present Myocardial infarct finding no longer present Electronically Signed On 04-23-2024 21:53:53 [employer]ARKING [employer] SUPER[employer] by Ryann Boo M.D. [id number]
[2024-04-22 22:23] LABS: Troponin 5 6HR 20.09 ng/L (0-10); Troponin 5 6HR Delta 4.09 ng/L (0-12)
[2024-04-23] VITALS: BP 129/93; PULSE 100; RESP 18; TEMP 37.3; O2SAT 93
[2024-04-23 04:00] VITALS: BP 108/55; PULSE 98; RESP 21; TEMP 36.8; O2SAT 96
[2024-04-23 06:57] LABS: Basophils % 0.3 %; Hematocrit 33.3 % (36-47); Lymphocytes # 0.3 10^3/uL (0.8-4.8); Lymphocytes % 8.4 %; Mean Corpuscular HGB Conc 31.2 g/dL (30-55); Mean Corpuscular Hemoglobin 31.5 pg (27-33); Mean Corpuscular Volume 100.9 fl (85-98); Mean Platelet Volume 10.1 fL (7.4-10.4); Monocytes # 0.1 10^3/uL (0.2-0.9); Monocytes % 3.4 %; Neutrophils # 2.82 10^3/uL (1.8-7.7); Neutrophils % 87.3 %; Nucleated Red Blood Cells % 0 %; Platelet Count 158 10^3/cmm (157-399); Red Cell Distribution Width 13.9 % (12.1-15.1); White Blood Count 3.23 10^3/uL (3.29-11.43)
[2024-04-23 07:00] LABS: Anion Gap 15.3 (5-19); Blood Urea Nitrogen 13 mg/dL (8-23); C Reactive Protein 54.8 mg/L (0.0-4.9); Carbon Dioxide 20 mmol/L (22-29); Chloride 107 mmol/L (98-107); Glucose 130 mg/dL (65-115); Magnesium 1.9 mg/dL (1.7-2.3); Osmolality Calculated 288 mOsm/kg (285-295); Potassium 4.3 mmol/L (3.5-5.1); Sodium 138 mmol/L (136-145)
[2024-04-23 07:36] VITALS: BP 101/63; PULSE 93; RESP 17; TEMP 36.7; O2SAT 91
[2024-04-23] MEDS: levothyroxine 125 mcg Tablet PO (08:28)
[2024-04-23] MEDS: ropinirole 0.25 mg Tablet PO (08:28)
[2024-04-23] MEDS: apixaban 5 mg Tablet PO ×2 (08:28→16:46)
[2024-04-23] MEDS: LORazepam 0.5 mg Tablet PO (08:28)
[2024-04-23] MEDS: cefTRIAXone 1,000 mg SDV 1000 MG IVP (08:28)
[2024-04-23] MEDS: hydrocortisone 100 mg/2 mL SDV IVP (08:29)
[2024-04-23 11:29] VITALS: BP 106/71; PULSE 94; RESP 16; TEMP 36.7; O2SAT 96
--- NOTE | 2024-04-23 14:11 | P.PN_ITS ---
Subjective 2 Subjective: This morning. Patient sitting up in chair. She is trying to work with physical therapy. Evaluation has not started yet. Is aware that she has a UTI. Would like to go to rehab if needed. Denies any active complaints at this time. Vitals/I&O/Wt Last Vital Signs Temp 98.0 F 04/23/24 11:29 Pulse 94 04/23/24 11:29 Resp 16 04/23/24 11:29 BP 106/71 04/23/24 11:29 Pulse Ox 96 04/23/24 11:29 O2 Del Method Room Air 04/23/24 11:29 04/22/24 04/23/24 04/23/24 22:59 06:59 14:59 Intake Total 1500 / 1500 240 / 1740 120 / 120 Output Total 200 / 200 Balance 1500 / 1500 40 / 1540 120 / 120 Weight last 48 hrs Weight 94.529 kg Weight 94.461 kg Weight 95.254 kg Physical Exam 2 Narrative: No acute distress, sitting up in chair. Appearing comfortable at this time Normal S1-S2 Lungs clear to auscultation bilaterally Abdomen soft No edema bilateral lower extremities. ? Able to move all 4 extremities. Was able to walk On room air. Data 04/23/24 06:08 04/23/24 06:08 Micro: Microbiology 04/22/24 18:05 Blood Culture - Preliminary Blood SPECIMEN COLLECTED 04/22/24 18:09 Blood Culture - Preliminary Blood SPECIMEN COLLECTED A&P Assessment and plan (1) Severe aortic valve stenosis: (2) Pulmonary embolism: Qualifiers: Pulmonary embolism type: unspecified Chronicity: chronic Acute cor pulmonale presence: without acute cor pulmonale Qualified Code(s): I27.82 - Chronic pulmonary embolism (3) DVT (deep venous thrombosis): Qualifiers: DVT location: lower extremity Affected thrombotic vein of extremity: u nspecified lower extremity proximal vein Chronicity: chronic Laterality: b ilateral Qualified Code(s): I82.5Y3 - Chronic embolism and thrombosis of unspecified deep veins of proximal lower extremity, bilateral (4) Hypothyroidism: Qualifiers: Hypothyroidism type: acquired Qualified Code(s): E03.9 - Hypothyroidism, unspecified (5) Adrenal insufficiency: (6) Urinary tract infection: (7) Iron deficiency anemia: Qualifiers: Iron deficiency anemia type: other iron deficiency Qualified Code(s): D 50.8 - Other iron deficiency anemias (8) Primary osteoarthritis of left knee: (9) Interstitial lung disease: (10) Physical deconditioning: (11) Weakness: (12) Weakness: Plan UTI without sign of sepsis Hypotension with underlying chronic steroid use Concern for adrenal insufficiency will give her stress dose steroid IV fluids to be continued Clinically patient is extremely dry No active sign of meningitis or stroke Recurrent falls related to dizziness patient describes her dizziness as room spinning around her, I will stop her meclizine request physical therapy to do Columbia-Hallpike maneuver and possible Natacha's Patient uses a walker for ambulation, lives with her daughter She would like to discuss contraindication for continuation of Eliquis secondary to recurrent falls stating that she has had 15 falls since July last year Since she will be supervised in the hospital I will continue her Eliquis for now for her DVT/PE history History of GI bleed status post EGD which was unremarkable Iron-deficiency anemia: Stable Stage III breast cancer: Follows up with oncology patient will need a PET scan as a new baseline, has been referred to breast surgeon at [facility] status post neoadjuvant treatment for locally advanced breast cancer Full code Cardiac diet 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 Normal saline 75 cc/h -I will stop stress dose steroids at this time. ? Switch to oral hydrocortisone ? Continue ceftriaxone daily ? Await urine culture ? Continue Eliquis at this time. ? Await PT consultation. Attestations 2 Medical Necessity Statement*: Anticipating discharge within 48 hours Diagnoses Severe aortic valve stenosis I35.0 Chronic pulmonary embolism without acute cor pulmonale, unspecified pulmonary embolism type I27.82 Pulmonary embolism type: unspecified Chronicity: chronic Acute cor pulmonale presence: without acute cor pulmonale Chronic deep vein thrombosis (DVT) of proximal vein of both lower extremities I82.5Y3 DVT location: lower extremity Affected thrombotic vein of extremity: unspecified lower extremity proximal vein Chronicity: chronic Laterality: bilateral Acquired hypothyroidism E03.9 Hypothyroidism type: acquired Adrenal insufficiency E27.40 Urinary tract infection N39.0 Other iron deficiency anemia D50.8 Iron deficiency anemia type: other iron deficiency Primary osteoarthritis of left knee M17.12 Interstitial lung disease J84.9 Physical deconditioning R53.81 Weakness R53.1
[2024-04-23 15:15] VITALS: BP 91/58; PULSE 92; RESP 16; TEMP 36.4; O2SAT 95
[2024-04-23] MEDS: hydrocortisone 10 mg Tablet 5 MG PO (16:46)
[2024-04-23 20:35] VITALS: BP 101/63; PULSE 100; RESP 17; TEMP 36.5; O2SAT 92
[2024-04-24 00:30] VITALS: BP 84/49; PULSE 89; RESP 16; TEMP 36.4; O2SAT 96
[2024-04-24 03:56] LABS: Basophils % 0.2 %; Eosinophils # 0.1 10^3/uL (0.0-0.8); Eosinophils % 1.5 %; Hematocrit 29.6 % (36-47); Lymphocytes # 0.9 10^3/uL (0.8-4.8); Lymphocytes % 17.8 %; Mean Corpuscular HGB Conc 32.4 g/dL (30-55); Mean Corpuscular Hemoglobin 32.5 pg (27-33); Mean Corpuscular Volume 100.3 fl (85-98); Mean Platelet Volume 10.3 fL (7.4-10.4); Monocytes # 0.6 10^3/uL (0.2-0.9); Monocytes % 11.1 %; Neutrophils # 3.61 10^3/uL (1.8-7.7); Nucleated Red Blood Cells % 0 %; Platelet Count 163 10^3/cmm (157-399); Red Blood Count 2.95 10^6/uL (3.85-5.65); Red Cell Distribution Width 13.9 % (12.1-15.1); White Blood Count 5.23 10^3/uL (3.29-11.43)
[2024-04-24 04:14] LABS: Anion Gap 10.5 (5-19); Blood Urea Nitrogen 13 mg/dL (8-23); Calcium 9.8 mg/dL (8.5-10.5); Carbon Dioxide 24 mmol/L (22-29); Chloride 106 mmol/L (98-107); Glucose 104 mg/dL (65-115); Magnesium 1.9 mg/dL (1.7-2.3); Osmolality Calculated 284 mOsm/kg (285-295); Potassium 3.5 mmol/L (3.5-5.1); Sodium 137 mmol/L (136-145)
[2024-04-24 04:41] VITALS: BP 102/61; PULSE 79; RESP 16; TEMP 36.6; O2SAT 93
[2024-04-24 07:35] VITALS: BP 105/63; PULSE 82; RESP 15; TEMP 36.8; O2SAT 94
[2024-04-24] MEDS: LORazepam 0.5 mg Tablet PO (08:53)
[2024-04-24] MEDS: hydrocortisone 10 mg Tablet PO (08:53)
[2024-04-24] MEDS: apixaban 5 mg Tablet PO ×2 (08:53→17:15)
[2024-04-24] MEDS: levothyroxine 125 mcg Tablet PO (08:53)
[2024-04-24] MEDS: cefTRIAXone 1,000 mg SDV 1000 MG IVP (08:53)
[2024-04-24] MEDS: ropinirole 0.25 mg Tablet PO (08:53)
[2024-04-24 11:56] VITALS: BP 97/59; PULSE 79; RESP 16; TEMP 36.4; O2SAT 96
--- NOTE | 2024-04-24 15:01 | PM.PN ---
Vitals/I&O/Wt Last Vital Signs Temp 97.6 F 04/24/24 11:56 Pulse 79 04/24/24 11:56 Resp 16 04/24/24 11:56 BP 97/59 04/24/24 11:56 Pulse Ox 96 04/24/24 11:56 O2 Del Method Room Air 04/24/24 11:56 04/24/24 04/24/24 04/24/24 06:59 14:59 22:59 Intake Total 480 / 480 Output Total 100 / 300 Balance -100 / 60 480 / 480 Weight last 48 hrs Weight 95.453 kg Weight 94.529 kg Weight 94.461 kg Weight 95.254 kg Physical Exam Narrative: No acute distress, sitting up in chair. Appearing comfortable at this time Normal S1-S2 Lungs clear to auscultation bilaterally Abdomen soft No edema bilateral lower extremities. ? Able to move all 4 extremities. Was able to walk On room air. Data 04/24/24 02:17 04/24/24 02:17 Micro: Microbiology 04/22/24 17:30 Urine Culture - Preliminary Urine,Clean Catch Gram Negative Rods 04/22/24 18:05 Blood Culture - Preliminary Blood NEGATIVE TO DATE 04/22/24 18:09 Blood Culture - Preliminary Blood NEGATIVE TO DATE A&P Assessment and plan (1) Severe aortic valve stenosis: (2) Pulmonary embolism: Qualifiers: Pulmonary embolism type: unspecified Chronicity: chronic Acute cor pulmonale presence: without acute cor pulmonale Qualified Code(s): I27.82 - Chronic pulmonary embolism (3) DVT (deep venous thrombosis): Qualifiers: DVT location: lower extremity Affected thrombotic vein of extremity: unspecified lower extremity proximal vein Chronicity: chronic Laterality: bilateral Qualified Code(s): I82.5Y3 - Chronic embolism and thrombosis of unspecified deep veins of proximal lower extremity, bilateral (4) Hypothyroidism: Qualifiers: Hypothyroidism type: acquired Qualified Code(s): E03.9 - Hypothyroidism, unspecified (5) Adrenal insufficiency: (6) Urinary tract infection: (7) Iron deficiency anemia: Qualifiers: Iron deficiency anemia type: other iron deficiency Qualified Code(s): D50.8 - Other iron deficiency anemias (8) Primary osteoarthritis of left knee: (9) Interstitial lung disease: (10) Physical deconditioning: (11) Weakness: (12) Weakness: Plan UTI without sign of sepsis Hypotension with underlying chronic steroid use Concern for adrenal insufficiency will give her stress dose steroid IV fluids to be continued Clinically patient is extremely dry No active sign of meningitis or stroke Recurrent falls related to dizziness patient describes her dizziness as room spinning around her, I will stop her meclizine request physical therapy to do Henry-Hallpike maneuver and possible Natacha's Patient uses a walker for ambulation, lives with her daughter She would like to discuss contraindication for continuation of Eliquis secondary to recurrent falls stating that she has had 15 falls since July last year Since she will be supervised in the hospital I will continue her Eliquis for now for her DVT/PE history History of GI bleed status post EGD which was unremarkable Iron-deficiency anemia: Stable Stage III breast cancer: Follows up with oncology patient will need a PET scan as a new baseline, has been referred to breast surgeon at [facility] status post neoadjuvant treatment for locally advanced breast cancer Full code Cardiac diet 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 Normal saline 75 cc/h -I will stop stress dose steroids at this time. ? Switch to oral hydrocortisone ? Continue ceftriaxone daily ? Await urine culture ? Continue Eliquis at this time. ? Await PT consultation. 04/24/2024 -Continue treat for UTI at this time ? Continue on hydrocortisone 5 AM and 5 PM. Follow-up with endocrinology at discharge ? Continue ceftriaxone. ? Await urine culture. Discussed with lab it will be available tomorrow. ? PT recommended home exercise program ? Continue Eliquis. ? Discharge home in next 24 hours. Attestations Medical Necessity Statement*: Await urine culture. Discharge home in a.m. Diagnoses Severe aortic valve stenosis I35.0 Chronic pulmonary embolism without acute cor pulmonale, unspecified pulmonary embolism type I27.82 Pulmonary embolism type: unspecified Chronicity: chronic Acute cor pulmonale presence: without acute cor pulmonale Chronic deep vein thrombosis (DVT) of proximal vein of both lower extremities I82.5Y3 DVT location: lower extremity Affected thrombotic vein of extremity: unspecified lower extremity proximal vein Chronicity: chronic Laterality: bilateral Acquired hypothyroidism E03.9 Hypothyroidism type: acquired Adrenal insufficiency E27.40 Urinary tract infection N39.0 Other iron deficiency anemia D50.8 Iron deficiency anemia type: other iron deficiency Primary osteoarthritis of left knee M17.12 Interstitial lung disease J84.9 Physical deconditioning R53.81 Weakness R53.1
[2024-04-24 16:24] VITALS: BP 105/69; PULSE 88; RESP 16; TEMP 36.7; O2SAT 97
[2024-04-24] MEDS: hydrocortisone 10 mg Tablet 5 MG PO (17:15)
[2024-04-24 20:00] VITALS: BP 91/67; PULSE 89; RESP 18; TEMP 36.4; O2SAT 95
[2024-04-25] VITALS: BP 91/54; PULSE 94; RESP 19; TEMP 36.3; O2SAT 95
[2024-04-25 04:00] VITALS: BP 98/59; PULSE 79; RESP 18; TEMP 36.3; O2SAT 95
[2024-04-25 08:00] VITALS: BP 91/53; PULSE 86; RESP 14; TEMP 36.3; O2SAT 93
[2024-04-25] MEDS: levothyroxine 125 mcg Tablet PO (08:25)
[2024-04-25] MEDS: cefTRIAXone 1,000 mg SDV 1000 MG IVP (08:25)
[2024-04-25] MEDS: hydrocortisone 10 mg Tablet PO (08:25)
[2024-04-25] MEDS: apixaban 5 mg Tablet PO (08:26)
[2024-04-25] MEDS: ropinirole 0.25 mg Tablet PO (08:26)
[2024-04-25] MEDS: LORazepam 0.5 mg Tablet PO (08:26)
--- NOTE | 2024-04-25 11:25 | PM.DCS ---
Discharge Providers Date of Admission: 04/22/24 19:41 Date of Discharge: April 25, 2024 Attending Provider at Admission: Madisyn Oliver MD Attending Provider at Discharge: Saundra Atkinson MD Primary Care Provider: Sánchez Macario Diagnoses at Discharge Discharge Diagnosis (1) Severe aortic valve stenosis: Status: Chronic (2) Pulmonary embolism: Status: Chronic Qualifiers: Acute cor pulmonale presence: without acute cor pulmonale Chronicity: chronic Pulmonary embolism type: unspecified Qualified Code(s): I27.82 - Chronic pulmonary embolism (3) DVT (deep venous thrombosis): Status: Chronic Qualifiers: Affected thrombotic vein of extremity: unspecified lower extremity proximal vein Chronicity: chronic DVT location: lower extremity Laterality: bilateral Qualified Code(s): I82.5Y3 - Chronic embolism and thrombosis of unspecified deep veins of proximal lower extremity, bilateral (4) Hypothyroidism: Status: Chronic Qualifiers: Hypothyroidism type: acquired Qualified Code(s): E03.9 - Hypothyroidism, unspecified (5) Adrenal insufficiency: Status: Acute Permanent problem details: hospital stay 08/2023 (6) Urinary tract infection: Status: Deleted (7) Iron deficiency anemia: Status: Chronic Qualifiers: Iron deficiency anemia type: other iron deficiency Qualified Code(s): D50.8 - Other iron deficiency anemias (8) Primary osteoarthritis of left knee: Status: Chronic (9) Interstitial lung disease: Status: Chronic (10) Physical deconditioning: Status: Acute (11) Weakness: Status: Acute Reason for Visit Reason for Visit: weakness Hospital Course Hospital Course Patient presented to the hospital with a UTI and was hypotensive. There was concern for adrenal insufficiency secondary to hypotension and being on chronic steroids as an outpatient. She was given stress dose steroids and transitioned over to hydrocortisone 20 in the morning and 10 at night. She was given follow-up with endocrinology at discharge. Ceftriaxone was used to treat the UTI during hospitalization however after urine culture results of Klebsiella ESBL she was sent home on Augmentin to which it was sensitive to. Nursing staff to work on endocrinology appointment. Discussed with Marina over the phone. There was also an issue with her hydrocortisone at the pharmacy. Pharmacy did not have the right hydrocortisone tablet. That prescription was also adjusted over the phone. Physical Exam Narrative: No acute distress, sitting up in chair. Appearing comfortable at this time Normal S1-S2 Lungs clear to auscultation bilaterally Abdomen soft No edema bilateral lower extremities. ? Able to move all 4 extremities. Was able to walk On room air. Discharge Data Studies Completed and Pending Completed Studies During Hospitalization Category Date Time Status CT abdomen pelvis wo con [id number] Routine Cat Scan 04/22/24 19:48 Completed XR chest 1V portable [id number] Stat Exams 04/22/24 15:38 Completed Pending at discharge Category Date Time Status Blood Culture Stat Lab 04/22/24 18:05 Results Radiology Impressions Chest X-Ray 04/22/24 15:38 IMPRESSION: 1. Linear bilateral lower chest pulmonary atelectasis, or scarring. 2. Borderline prominence of the cardiac silhouette. 3. Degenerative and postsurgical changes are demonstrated, as described above. Abdomen/Pelvis CT 04/22/24 19:48 IMPRESSION: 1. No acute intra-abdominal or pelvic process. 2. No evidence of urolithiasis. 3. Other nonemergent findings above. Laboratory Results WBC 5.23 10^3/uL (3.29-11.43) 04/24/24 02:17 RBC 2.95 10^6/uL (3.85-5.65) L 04/24/24 02:17 Hgb 9.60 g/dL (11.27-16.99) L 04/24/24 02:17 Hct 29.6 % (36-47) L 04/24/24 02:17 MCV 100.3 fl (85-98) H 04/24/24 02:17 MCH 32.5 pg (27-33) 04/24/24 02:17 MCHC 32.4 g/dL (30-55) 04/24/24 02:17 RDW 13.9 % (12.1-15.1) 04/24/24 02:17 Plt Count 163 10^3/cmm (157-399) 04/24/24 02:17 MPV 10.3 fL (7.4-10.4) 04/24/24 02:17 Neut % (Auto) 69.0 % 04/24/24 02:17 Lymph % (Auto) 17.8 % 04/24/24 02:17 Archer % (Auto) 11.1 % 04/24/24 02:17 Eos % (Auto) 1.5 % 04/24/24 02:17 Baso % (Auto) 0.2 % 04/24/24 02:17 Neut # (Auto) 3.61 10^3/uL (1.8-7.7) 04/24/24 02:17 Lymph # (Auto) 0.9 10^3/uL (0.8-4.8) 04/24/24 02:17 Archer # (Auto) 0.6 10^3/uL (0.2-0.9) 04/24/24 02:17 Eos # (Auto) 0.1 10^3/uL (0.0-0.8) 04/24/24 02:17 Baso # (Auto) 0.0 10^3/uL (0.0-0.1) 04/24/24 02:17 Nucleated RBC % (auto) 0 % 04/24/24 02:17 Nucleated RBCs # 0.0 /100WBC 04/24/24 02:17 Sodium 137 mmol/L (136-145) 04/24/24 02:17 Potassium 3.5 mmol/L (3.5-5.1) 04/24/24 02:17 Chloride 106 mmol/L (98-107) 04/24/24 02:17 Carbon Dioxide 24 mmol/L (22-29) 04/24/24 02:17 Anion Gap 10.5 (5-19) 04/24/24 02:17 BUN 13 mg/dL (8-23) 04/24/24 02:17 Creatinine 0.7 mg/dL (0.5-0.9) 04/24/24 02:17 GFR Calculation Not Reportable 04/24/24 02:17 Glucose 104 mg/dL (65-115) 04/24/24 02:17 Calculated Osmolality 284 mOsm/kg (285-295) L 04/24/24 02:17 Lactic Acid 2.4 mmol/L (0.5-2.2) H 04/22/24 15:54 Lactic Acid (Sepsis) 1.9 mmol/L (0.5-2.2) 04/22/24 18:09 Calcium 9.8 mg/dL (8.5-10.5) 04/24/24 02:17 Magnesium 1.9 mg/dL (1.7-2.3) 04/24/24 02:17 Total Bilirubin 0.4 mg/dL (0.15-1.2) 04/22/24 15:54 AST 19 U/L (0-32) 04/22/24 15:54 ALT 14 U/L (0-33) 04/22/24 15:54 Alkaline Phosphatase 95 U/L (35-105) 04/22/24 15:54 Troponin T Baseline 16 ng/L (0-10) H 04/22/24 15:54 Troponin T 120 Minute 17.22 ng/L (0-10) H 04/22/24 18:09 Delta Troponin T 1.22 ABS# (0-10) 04/22/24 18:09 Troponin T Hi Sens 6Hr 20.09 ng/L (0-10) H 04/22/24 21:56 Troponin T Hi Sens 6Hr Delta 4.09 ng/L (0-12) 04/22/24 21:56 C-Reactive Protein 54.8 mg/L (0.0-4.9) H 04/23/24 06:08 Total Protein 5.7 g/dL (6.6-8.7) L 04/22/24 15:54 Albumin 3.3 g/dL (3.5-5.2) L 04/22/24 15:54 Globulin 2.4 g/dL (1.3-4.6) 04/22/24 15:54 Procalcitonin 0.13 ng/mL (0-0.5) 04/22/24 18:09 Urine Color Dark yellow (Yellow) A 04/22/24 17:30 Urine Appearance Turbid (CLEAR) A 04/22/24 17:30 Urine pH 7.0 (5-7) 04/22/24 17:30 Ur Specific [place] 1.019 (1.005-1.030) 04/22/24 17:30 Urine Protein 1+ (Negative) A 04/22/24 17:30 Urine Glucose (UA) Negative (Normal) 04/22/24 17: Urine Ketones Trace (Negative) 04/22/24 17: Urine Blood 1+ (Negative) A 04/22/24 17:30 Urine Nitrate Positive (Negative) A 04/22/24 17:30 Urine Bilirubin Negative (Negative) 04/22/24 17:30 Urine Urobilinogen 0.2 mg/dL (Negative) 04/22/24 17:30 Ur Leukocyte Esterase 3+ (Negative) A 04/22/24 17:30 Urine RBC 3-5 /hpf (0-2) 04/22/24 17:30 Urine WBC >100 /hpf (0-5) H 04/22/24 17:30 Ur Squamous Epith Cells 0-5 /hpf (0-5) 04/22/24 17:30 Urine Bacteria 3+ /hpf (NONE) H 04/22/24 17:30 Hyaline Casts 0-4 /lpf H 04/22/24 17:30 Coronavirus (PCR) Negative (Negative) 04/22/24 16:35 Influenza A (PCR) Negative (Negative) 04/22/24 16:35 Influenza Type B (PCR) Negative (Negative) 04/22/24 16:35 RSV (PCR) Negative (Negative) 04/22/24 16:35 Vitals Last Vital Signs Temp 97.4 F L 04/25/24 08:00 Pulse 86 04/25/24 08:00 Resp 14 04/25/24 08:00 BP 91/53 04/25/24 08:00 Pulse Ox 93 04/25/24 08:00 O2 Del Method Room Air 04/25/24 08:00 Discharge Plan Discharge Patient Disposition: Home Condition: Stable Prescriptions: New hydrocortisone 10 mg Tablet 10 mg PO QPM Qty: 30 0RF hydrocortisone 10 mg Tablet 20 mg PO DAILY Qty: 60 0RF Continued meclizine 25 mg tablet 25 mg PO TID PRN (Reason: Dizziness) tolterodine 4 mg capsule,extended release 24hr 4 mg PO DAILY potassium chloride 10 mEq capsule, extended release 10 meq PO DAILY Prolia 60 mg/mL syringe 60 mg SUBCUT Q6M cyanocobalamin (vitamin B-12) 2,500 mcg tablet 2,500 mcg PO DAILY (DME) Nebulizer and accessory kit See Rx Instructions .Route .MEDSUPPLY Qty: 1 0RF Patient Comments: Patient states that they do not have the machine. Rx Instructions: As directed (DME) custom inserts See Rx Instructions .Route .MEDSUPPLY Qty: 1 0RF Rx Instructions: As directed tizanidine 2 mg tablet 2 mg PO DAILY levothyroxine 125 mcg tablet 125 mcg PO DAILY Eliquis 5 mg tablet 5 mg PO BID Qty: 60 0RF fluoxetine 40 mg capsule 40 mg PO DAILY Hold Instructions: Resume on 12/18/23. lorazepam 0.5 mg tablet 0.5 mg PO DAILY budesonide 0.5 mg/2 mL suspension for nebulization 0.5 mg inhalation BID PRN (Reason: Shortness Of Breath) ropinirole 0.25 mg tablet 0.25 mg PO DAILY acetaminophen 325 mg Tablet 325 mg PO QID PRN (Reason: Pain) fluticasone propion-salmeterol [Advair Diskus] 250-50 mcg/dose blister with device 1 inh INHALATION BID Held prednisone 5 mg tablet 5 mg PO DAILY Hold Instructions: see endocrinology and pcp Discharge Orders: Discharge Order (Routine); Ordered 04/25/24 Ordered By: Saundra Atkinson Other Ambulatory Orders: Physical Therapy Eval and Treat Outpatient (Order) Timeframe: 3 Days Facility: [facility] [place] - Location: Physical Therapy Ordered By: Saundra Atkinson Referrals: [facility] Outpatient Therapy [Outside] (Outpt PT will call you at home to arrange a time to come in for therapy. ) Sánchez Macario [Primary Care Provider] - (Please contact Dr. Macario's office to make a hospital follow-up appointment when they are open on 04/26/2024 at the number provided. Please ask to have an appointment within a week after discharge. ) Maverick Wilson MD [Physician] - 4-7 days Discharge Diet: Regular Discharge Activity: As per PT/OT instructions Patient Instructions: Amoxicillin/Clavulanate Potassium (By mouth) (Augmentin, Augmentin..., Hydrocortisone (By mouth) (Cortef, Alkindi Sprinkle), Pulmonary Embolism (GEN), Urinary Tract Infection in Women (GEN), Deep Vein Thrombosis (GEN), Opioid Safety Discharge Attestations Time Spent in Discharge Care*: greater than 30 min Status at Discharge: Cognitive status at discharge: cognitively intact, Behavioral status at discharge: cooperative, Quality Metrics Clinical Quality Measures [ No reported AMI, CVA or VTE this stay] Coding Level of Care Code Acute Code for Chg Fwd Diagnoses Severe aortic valve stenosis I35.0 Chronic pulmonary embolism without acute cor pulmonale, unspecified pulmonary embolism type I27.82 Acute cor pulmonale presence: without acute cor pulmonale Chronicity: chronic Pulmonary embolism type: unspecified Chronic deep vein thrombosis (DVT) of proximal vein of both lower extremities I82.5Y3 Affected thrombotic vein of extremity: unspecified lower extremity proximal vein Chronicity: chronic DVT location: lower extremity Laterality: bilateral Acquired hypothyroidism E03.9 Hypothyroidism type: acquired Adrenal insufficiency E27.40 Urinary tract infection N39.0 Other iron deficiency anemia D50.8 Iron deficiency anemia type: other iron deficiency Primary osteoarthritis of left knee M17.12 Interstitial lung disease J84.9 Physical deconditioning R53.81 Weakness R53.1
[2024-04-25 11:54] VITALS: BP 110/78; PULSE 85; RESP 16; TEMP 36.6; O2SAT 94
[2024-04-25 15:16] VITALS: BP 110/78; PULSE 85; RESP 16; TEMP 36.6; O2SAT 94
--- NOTE | 2024-04-25 16:04 | PC.NURSE ---
I received a call from [facility] asking to verify the Hydrocortisone ordered on d/c by Dr. Atkinson. They state they are unable to fill 2 Rx with the same medication and just needed an updated Rx combining both doses of Hydrocortisone. I provided a verbal order from Dr. Atkinson for patient to take Hydrocortisone 20 mg every morning, 10 mg every evening with quantity to equal 30 days. She states she will fill this for patient. I called and spoke with Dr. Atkinson and informed her of this change.
== END 2024-04-25 15:17 | disposition home or self-care (01) ==
LOC: ER 18:57 → MEDSURG 19:50
PROVIDERS: Admitting Provider Internal Medicine; Emergency Provider Emergency Medicine; PCP Family Medicine; Visit Provider Internal Medicine
DX: I35.0 Nonrheumatic aortic (valve) stenosis (principal); I27.82 Chronic pulmonary embolism; I82.5Y3 Chronic embolism and thrombosis of unspecified deep veins of proximal lower extremity, bilateral; E03.9 Hypothyroidism, unspecified; E27.40 Unspecified adrenocortical insufficiency; I50.30 Unspecified diastolic (congestive) heart failure; N39.0 Urinary tract infection, site not specified; D50.8 Other iron deficiency anemias; M17.12 Unilateral primary osteoarthritis, left knee; J84.9 Interstitial pulmonary disease, unspecified; R53.81 Other malaise; R53.1 Weakness; Z79.52 Long term (current) use of systemic steroids; I95.9 Hypotension, unspecified; R29.6 Repeated falls; C50.919 Malignant neoplasm of unspecified site of unspecified female breast; E86.0 Dehydration; R42 Dizziness and giddiness; E66.9 Obesity, unspecified; Z68.34 Body mass index [BMI] 34.0-34.9, adult
CPT/HCPCS: 36415; 71045; 74176; 80048; 80053; 81001; 83605; 83735; 84145; 84484; 85025; 86140; 87040; 87077; 87086; 87186; 87637; 93005; 93010; 96374; 97110; 97116; 97162; 99222; 99232; 99285; G0378; J0692; J0696; J1720; J7030; J7040; J8499

== ENCOUNTER 2024-05-17 10:17 | Oncology outpatient (recurring) (ONCR) | payer MEDICARE, MEDICAID, SELFPAY ==
[2024-05-17 10:40] LABS: Basophils % 0.5 %; Eosinophils # 0.1 10^3/uL (0.0-0.8); Eosinophils % 0.9 %; Lymphocytes # 0.4 10^3/uL (0.8-4.8); Lymphocytes % 5.1 %; Mean Corpuscular HGB Conc 31.4 g/dL (30-55); Mean Corpuscular Hemoglobin 31.6 pg (27-33); Mean Corpuscular Volume 100.6 fl (85-98); Mean Platelet Volume 9.7 fL (7.4-10.4); Monocytes # 0.4 10^3/uL (0.2-0.9); Monocytes % 4.9 %; Neutrophils # 7.15 10^3/uL (1.8-7.7); Neutrophils % 88.2 %; Nucleated Red Blood Cells % 0 %; Platelet Count 178 10^3/cmm (157-399); Red Blood Count 3.58 10^6/uL (3.85-5.65); Red Cell Distribution Width 14.8 % (12.1-15.1)
[2024-05-17 10:57] LABS: Alanine Aminotransferase 11 U/L (0-33); Albumin Level 3.5 g/dL (3.5-5.2); Alkaline Phosphatase 94 U/L (35-105); Anion Gap 16.4 (5-19); Aspartate Amino Transferase 18 U/L (0-32); Blood Urea Nitrogen 14 mg/dL (8-23); Calcium 9.5 mg/dL (8.5-10.5); Carbon Dioxide 22 mmol/L (22-29); Chloride 104 mmol/L (98-107); Creatinine Clr Calc Pharmacy 61.6718; Globulin 2.3 g/dL (1.3-4.6); Glucose 121 mg/dL (65-115); Osmolality Calculated 288 mOsm/kg (285-295); Potassium 4.4 mmol/L (3.5-5.1); Sodium 138 mmol/L (136-145); Total Bilirubin 0.3 mg/dL (0.15-1.2); Total Protein 5.8 g/dL (6.6-8.7)
== END 2024-05-21 23:59 | disposition home or self-care (01) ==
PROVIDERS: Visit Provider Internal Medicine Medical Oncology
DX: C50.412 Malignant neoplasm of upper-outer quadrant of left female breast (principal); Z17.1 Estrogen receptor negative status [ER-]; R91.1 Solitary pulmonary nodule; Z95.828 Presence of other vascular implants and grafts; Z92.25 Personal history of immunosuppression therapy; Z79.899 Other long term (current) drug therapy
CPT/HCPCS: 36591; 80053; 85025; 99214

== ENCOUNTER → 2024-07-08 15:14 | Outpatient (BNVA) | payer MEDICARE, MEDICAID, SELFPAY | PROVIDERS: Visit Provider Internal Medicine Cardiovascular Disease | DX: Z95.3 Presence of xenogenic heart valve (principal); I27.82 Chronic pulmonary embolism; I82.5Y3 Chronic embolism and thrombosis of unspecified deep veins of proximal lower extremity, bilateral; I10 Essential (primary) hypertension; E78.5 Hyperlipidemia, unspecified; E03.9 Hypothyroidism, unspecified | CPT/HCPCS: 99214 ==

== ENCOUNTER 2024-07-19 13:58 | Oncology outpatient (recurring) (ONCR) | payer MEDICARE, MEDICAID, SELFPAY ==
[2024-06-29 12:11] LABS: Basophils # 0.1 10^3/uL (0.0-0.1); Eosinophils # 0.2 10^3/uL (0.0-0.8); Eosinophils % 3.3 %; Hematocrit 35.4 % (36-47); Lymphocytes # 0.8 10^3/uL (0.8-4.8); Lymphocytes % 13.3 %; Mean Corpuscular HGB Conc 32.5 g/dL (30-55); Mean Corpuscular Hemoglobin 32.5 pg (27-33); Mean Platelet Volume 9.3 fL (7.4-10.4); Monocytes # 0.6 10^3/uL (0.2-0.9); Monocytes % 10.4 %; Neutrophils # 4.37 10^3/uL (1.8-7.7); Neutrophils % 71.8 %; Nucleated Red Blood Cells % 0 %; Platelet Count 239 10^3/cmm (157-399); Red Blood Count 3.54 10^6/uL (3.85-5.65); Red Cell Distribution Width 13.5 % (12.1-15.1); White Blood Count 6.08 10^3/uL (3.29-11.43)
[2024-06-29 12:36] LABS: Alanine Aminotransferase 8 U/L (0-33); Albumin Level 3.4 g/dL (3.5-5.2); Alkaline Phosphatase 78 U/L (35-105); Anion Gap 14.9 (5-19); Aspartate Amino Transferase 17 U/L (0-32); Blood Urea Nitrogen 7 mg/dL (8-23); Calcium 9.2 mg/dL (8.5-10.5); Carbon Dioxide 22 mmol/L (22-29); Chloride 108 mmol/L (98-107); Globulin 2.6 g/dL (1.3-4.6); Glucose 122 mg/dL (65-115); Osmolality Calculated 291 mOsm/kg (285-295); Potassium 3.9 mmol/L (3.5-5.1); Sodium 141 mmol/L (136-145); Total Bilirubin 0.2 mg/dL (0.15-1.2)
--- NOTE | 2024-06-29 14:19 | N.ONRAD NP_ITS ---
Radiation Oncology New Patient Visit Patient: Janet Calvillo MR#: [id number] : 1940, Age: 83 Sex: Female Dictated by: Dr. Nelida Ferguson Date of Service: 06/29/2024 Referring Physician(s) : Dr. 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 Chief Complaint / History of Present Illness: Patient is an 83-year-old lady who was found to have a mass in her breast in October 2022. She began chemotherapy at that time she has had multiple courses of multiple different types of chemotherapy along with immunotherapy. Her treatments were stopped and started based on the other things were happening to her. At 1 point she developed COVID and things were put on hold. Her most recent PET March showed that the mass was still present. She also had a subcentimeter nodule in the lung which had no SUV uptake. There was a small area in the femoral head that was questionable as well. She is here today to discuss the radiation portion of breast conserving therapy after having had surgery on June 03. At that time she had a lump removed and it was over 5 cm but the nodes were negative. Current Medications: acetaminophen 325 mg PO QID PRN apixaban (Eliquis) 5 mg PO BID budesonide 0.5 mg inhalation BID PRN [custom inserts As directed] cyanocobalamin (vitamin B-12) 2,500 mcg PO DAILY denosumab (Prolia) 60 mg SUBCUT Q6M fluoxetine 40 mg PO DAILY fluticasone propion-salmeterol 250-50 mcg/dose (Advair Diskus) 1 inh inhalation BID hydrocortisone 10 mg PO QPM hydrocortisone 20 mg (2 x 10 mg) PO DAILY levothyroxine 125 mcg PO DAILY lorazepam 0.5 mg PO DAILY meclizine 25 mg PO TID PRN [Nebulizer and accessory kit As directed] potassium chloride ER 10 mEq PO DAILY prednisone 5 mg PO DAILY ropinirole 0.25 mg PO DAILY tizanidine 2 mg PO DAILY Allergies: tetanus toxoid, adsorbed Allergy (Severe, Verified 05/17/24 10:49) unknown ciprofloxacin [From Cipro] Allergy (Unknown, Verified 05/17/24 10:49) ADR-Vomiting erythromycin base Allergy (Unknown, Verified 05/17/24 10:49) ADR-Vomiting gabapentin [From Neurontin] Allergy (Unknown, Verified 05/17/24 10:49) unknown hydrocodone [From Vicodin] Allergy (Unknown, Verified 05/17/24 10:49) unknown Influenza Virus Vaccines Allergy (Unknown, Verified 05/17/24 10:49) unknown tramadol [From Ultram] Allergy (Unknown, Verified 05/17/24 10:49) unknown aspirin Allergy (Verified 05/17/24 10:49) stomach pain, unbearable egg Allergy (Verified 05/17/24 10:49) unknown Fish Containing Products Allergy (Verified 05/17/24 10:49) ALGY-Rash NSAIDS (Non-Steroidal Anti-Inflamma Allergy (Verified 05/17/24 10:49) heartburn, stomach pain Tetanus Vaccines and Toxoid Allergy (Verified 05/17/24 10:49) unknown adhesive Adverse Reaction (Unknown, Verified 05/17/24 10:49) unknown Home Medical History: No history of collagen vascular disease. No previous radiation therapy. 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 Primary osteoarthritis of left knee Iron deficiency anemia Dyslipidemia Port-A-Cath in place placed 12/2022 Adrenal insufficiency hospital stay 08/2023 Reversible airway obstruction Lesion of right [place] band ureter History of recurrent UTI (urinary tract infection) Pulmonary nodules Interstitial lung disease Asthma Breast cancer Hydronephrosis of right kidney Osteoporosis Arthritis Aortic stenosis Hypertension DVT (deep venous thrombosis) Pulmonary embolism Obesity Surgical History: History of cardiac catheterization 07/2023 no obstructive disease Hx of tubal ligation Hx of cystoscopy Hx of colonoscopy Age 65 Hx of cholecystectomy H/O: hysterectomy Hx of cataract surgery S/P tonsillectomy Family History: Father , AT 92 Congestive heart failure (CHF) Mother , AT 100 of unknown cause Other CAD (coronary artery disease) Cancer Diabetes Hyperlipidemia Hypertension Stroke Social History: Smoking and tobacco/nicotine status: never used tobacco/nicotine Alcohol intake: never Substance/Drug Use: never Marital status: / Current occupational status: retired and disabled Current Complaints / Review of Systems: . Vital Signs: Performed on 06/29/2024 12:38 PM BMI - 33.411 kg/m2 (high), Height - 66 in, Weight - 207 lbs, Temperature - 97.5 f, Pulse - 84 /min, Respiration - 17 /min, O2 Sat - 97 %, Pain - 3, Fatigue - 0 and BP - 110/ 72 mm(hg). Physical Exam: General: Patient is in no apparent distress. She is companied by her grandson HEENT: Normocephalic atraumatic. Pupils are equal, sclera clear, extraocular muscles intact Skin: Warm and dry Breast: Examination of the left breast reveals the incision to be nicely healed. The breast itself is still is mildly erythematous centrally. She still has some glue along the incision as well. Extremities noted lymphedema is noted in the upper extremities Pulmonary: Respiratory rate is regular nonlabored Cardiovascular: Regular rate and rhythm Abdomen: Mildly protuberant android pattern Neurological: Alert and orient x 3. Gait and speech within normal limits Psych: Affect appropriate for current situation Performance Status: 90 Pathology: Infiltrating ductal carcinoma the breast Lab: Imaging: See HPI Impression: Stage T3 N0 infiltrating ductal carcinoma the breast Plan: This point I reviewed her pathology. We talked about all the things that she had been through. We reviewed the simulation process. We discussed the risks and side effects both acute and long-term. We discussed skin care during the treatment. All of her questions were answered. Secondary to her having significant amount of chemotherapy have recommended to her 4-week course of treatment. She verbalized understanding. She is agreed to proceed. Will have her return for simulation and begin her treatment shortly thereafter. Signed by: 06/29/2024 2:16:47 PM <<Signature on File>> Time spent with patient:45 CPT Code: * CPT Code: *
--- NOTE | 2024-07-14 14:54 | ONCRAD TMN_ITS ---
Radiation Oncology Weekly Treatment Management Patient: Rajinder Gonzales> MR#: [id number] : 1940> Attending Physician: Dr. Nelida Ferguson Date of Service: 07/14/2024 Fractions: 2 out of 20 Referring Physician(s) : Diagnosis: C50.912 - Malignant neoplasm of unspecified site of left female breast, Diagnosed 07/01/2024 (Active) Radiotherapy to date: Course: L breast, Treatment Site: Breast Lt, Ref. ID: Breast_L, Energy: 15X/6X, Dose/Fx (cGy): 266, #Fx: 2 / 16, Dose Correction (cGy): 0, Total Dose Delivered (cGy): 532, Start Date: 07/13/2024, Elapsed Days: 1 Reason for visit: The patient is being seen today as part of their regularly scheduled weekly on treatment visits to assess for acute toxicities from radiotherapy. Review of Systems: Patient has no complaints Vital Signs: Performed on 07/14/2024 2:15 PM BMI - 32.023 kg/m2 (high), Height - 66 in, Weight - 198.4 lbs, Temperature - 96.7 f, Pulse - 83 /min, Respiration - 18 /min, O2 Sat - 96 %, Pain - 0, Fatigue - 0 and BP - 94/ 67 mm(hg). Physical Exam: On exam her breast and skin is without changes Imaging: Radiation therapy imaging related to accurate target localization (i.e. KV, MV and CBCT) was reviewed. Appropriate changes, if any, were made to ensure treatment accuracy. Plan: Continue with her treatments despite Signed by: Dr. Nelida Ferguson 07/14/2024 2:52:57 PM
== END 2024-07-19 23:59 | disposition home or self-care (01) ==
PROVIDERS: Internal Medicine Medical Oncology; Visit Provider Radiology Radiation Oncology
DX: Z51.0 Encounter for antineoplastic radiation therapy (principal); C50.412 Malignant neoplasm of upper-outer quadrant of left female breast; Z17.1 Estrogen receptor negative status [ER-]
CPT/HCPCS: 36591; 77290; 77295; 77300; 77321; 77334; 77387; 77412; 80053; 85025; 99024; 99214

== ENCOUNTER 2024-08-10 12:37 | Oncology outpatient (recurring) (ONCR) | payer MEDICARE, MEDICAID, SELFPAY ==
--- NOTE | 2024-07-20 14:39 | ONCRAD TMN_ITS ---
Radiation Oncology Weekly Treatment Management Patient: Rajinder Gonzales> MR#: [id number] : 1940> Attending Physician: Dr. Nelida Ferguson Date of Service: 07/20/2024 Fractions: 6 out of 20 Referring Physician(s) : Diagnosis: C50.912 - Malignant neoplasm of unspecified site of left female breast, Diagnosed 07/01/2024 (Active) Radiotherapy to date: Course: L breast, Treatment Site: Breast Lt, Ref. ID: Breast_L, Energy: 15X/6X, Dose/Fx (cGy): 266, #Fx: 6 / 16, Dose Correction (cGy): 0, Total Dose Delivered (cGy): 1,596, Start Date: 07/13/2024, Elapsed Days: 7 Reason for visit: The patient is being seen today as part of their regularly scheduled weekly on treatment visits to assess for acute toxicities from radiotherapy. Review of Systems: Patient has no complaints Vital Signs: Performed on 07/20/2024 2:03 PM BMI - 32.023 kg/m2 (high), Height - 66 in, Weight - 198.4 lbs, Temperature - 96.8 f, Pulse - 85 /min, Respiration - 18 /min, O2 Sat - 97 %, Pain - 4, Fatigue - 0 and BP - 106/ 72 mm(hg). Physical Exam: Skin is without changes. Breast is mildly erythematous as it has been from her surgery. Nipple is inverted Imaging: Radiation therapy imaging related to accurate target localization (i.e. KV, MV and CBCT) was reviewed. Appropriate changes, if any, were made to ensure treatment accuracy. Plan: Continue with her treatments as planned Signed by: Dr. Nelida Ferguson 07/20/2024 2:37:01 PM
--- NOTE | 2024-07-27 15:22 | ONCRAD TMN_ITS ---
Radiation Oncology Weekly Treatment Management Patient: Janet Calvillo MR#: [id number] : 1940 Attending Physician: Dr. Eliceo Christensen Date of Service: 07/27/2024 Referring Physician(s) : Diagnosis: C50.912 - Malignant neoplasm of unspecified site of left female breast, Diagnosed 07/01/2024 (Active) Radiotherapy to date: Course: L breast, Treatment Site: Breast Lt, Ref. ID: Breast_L, Energy: 15X/6X, Dose/Fx (cGy): 266, #Fx: 16, Dose Correction (cGy): 0, Total Dose Delivered (cGy): 2,926, Start Date: 07/13/2024, Elapsed Days: 14 Reason for visit: The patient is being seen today as part of their regularly scheduled weekly on treatment visits to assess for acute toxicities from radiotherapy. Review of Systems: Some central sternal itch ( outside of treatment of left breast) No left breast pain or itch. . Not using any skin rx. Eating well. Vital Signs: Performed on 07/27/2024 2:20 PM BMI - 31.958 kg/m2 (high), Height - 66 in, Weight - 198 lbs, Temperature - 97.6 f, Pulse - 80 /min, Respiration - 17 /min, O2 Sat - 97 %, Pain - 0, Fatigue - 0 and BP - 129/ 85 mm(hg). Physical Exam: Minimal left lateral inferior breast erythema. Imaging: Radiation therapy imaging related to accurate target localization (i.e. KV, MV and CBCT) was reviewed. Appropriate changes, if any, were made to ensure treatment accuracy. Plan: Good tolerance of treatment. Continue as planned. Signed by: Dr. Eliceo Christensen 07/27/2024 3:21:48 PM
--- NOTE | 2024-08-03 14:39 | ONCRAD TMN_ITS ---
Radiation Oncology Weekly Treatment Management Patient: Rajinder Gonzales> MR#: [id number] : 1940> Attending Physician: Jackson Maier Date of Service: 08/03/2024 Referring Physician(s) : Diagnosis: C50.912 - Malignant neoplasm of unspecified site of left female breast, Diagnosed 07/01/2024 (Active) Radiotherapy to date: Course: L breast, Treatment Site: Breast Lt, Ref. ID: Breast_L, Energy: 15X/6X, Dose/Fx (cGy): 266, #Fx: 16 / 16, Dose Correction (cGy): 0, Total Dose Delivered (cGy): 4,256, Start Date: 07/13/2024, Elapsed Days: 21 Reason for visit: The patient is being seen today as part of their regularly scheduled weekly on treatment visits to assess for acute toxicities from radiotherapy. Review of Systems: Completed whole breast therapy today on the left side. No complaints. Vital Signs: Performed on 08/03/2024 1:54 PM BMI - 32.12 kg/m2 (high), Height - 66 in, Weight - 199 lbs, Temperature - 96.9 f, Pulse - 88 /min, Respiration - 18 /min, O2 Sat - 99 %, Pain - 0, Fatigue - 0 and BP - 127/ 63 mm(hg)(/low). Physical Exam: AAOx3. Skin has mild erythema. Patient to start creams today. Imaging: Radiation therapy imaging related to accurate target localization (i.e. KV, MV and CBCT) was reviewed. Appropriate changes, if any, were made to ensure treatment accuracy. Plan: Continue XRT Continue Aquaphor Boost therapy to start tomorrow. Signed by: Jackson Maier 08/03/2024 2:38:11 PM
[2024-08-09 14:41] LABS: Basophils % 0.7 %; Eosinophils # 0.1 10^3/uL (0.0-0.8); Eosinophils % 2.2 %; Lymphocytes # 0.5 10^3/uL (0.8-4.8); Lymphocytes % 9.2 %; Mean Corpuscular HGB Conc 32.8 g/dL (30-55); Mean Corpuscular Volume 97.6 fl (85-98); Mean Platelet Volume 9.7 fL (7.4-10.4); Monocytes # 0.4 10^3/uL (0.2-0.9); Monocytes % 7.2 %; Neutrophils # 4.48 10^3/uL (1.8-7.7); Neutrophils % 80.3 %; Nucleated Red Blood Cells % 0 %; Platelet Count 161 10^3/cmm (157-399); Red Blood Count 3.69 10^6/uL (3.85-5.65); Red Cell Distribution Width 13.2 % (12.1-15.1); White Blood Count 5.57 10^3/uL (3.29-11.43)
[2024-08-09 15:10] LABS: Alanine Aminotransferase 15 U/L (0-33); Albumin Level 3.4 g/dL (3.5-5.2); Alkaline Phosphatase 67 U/L (35-105); Anion Gap 11.7 (5-19); Aspartate Amino Transferase 20 U/L (0-32); Blood Urea Nitrogen 19 mg/dL (8-23); CA 15-3 28.5 U/mL (0-25); Calcium 9.1 mg/dL (8.5-10.5); Carbon Dioxide 22 mmol/L (22-29); Chloride 106 mmol/L (98-107); Globulin 2.8 g/dL (1.3-4.6); Glucose 106 mg/dL (65-115); Osmolality Calculated 283 mOsm/kg (285-295); Potassium 4.7 mmol/L (3.5-5.1); Sodium 135 mmol/L (136-145); Total Bilirubin 0.3 mg/dL (0.15-1.2); Total Protein 6.2 g/dL (6.6-8.7)
--- NOTE | 2024-08-10 17:06 | N.ONRD TS_ITS ---
Radiation Oncology Treatment Summary Patient: Rajinder>Janet> MR#: [id number] : 1940> Age: 84> Sex: Female Dictated by: Dr. Eliceo Christensen Date of Service: 08/10/2024 Referring Physician(s) : Diagnosis: C50.912 - Malignant neoplasm of unspecified site of left female breast, Diagnosed 07/01/2024 (Active) Radiotherapy to Date: Course: L breast, Treatment Site: Breast Lt, Ref. ID: Breast_L, Energy: 15X/6X, Dose/Fx (cGy): 266, #Fx: 16 / 16, Dose Correction (cGy): 0, Total Dose Delivered (cGy): 4,256, Start Date: 07/13/2024, End Date: 08/03/2024, Elapsed Days: 21 Treatment Site: L BreastBoost, Ref. ID: CTV, Energy: 6X, Dose/Fx (cGy): 250, #Fx: 4 / , Dose Correction (cGy): 0, Total Dose Delivered (cGy): 1,000, Start Date: 08/04/2024, End Date: 08/10/2024, Elapsed Days: 6 Clinical Summary: The patient tolerated RT well. She had some dry desquamation in her left inframammary fold. The left breast had some generalized erythema and tanning. She had no sxs. She did not use any skin moisturizer. Plan: End of treatment today. Follow up with medical oncology in 6 weeks to discuss systemic treatment. FU here PRN. Signed by: Dr. Eliceo Christensen>08/10/2024 5:05:45 PM <<Signature on File>>
== END 2024-08-18 23:59 | disposition home or self-care (01) ==
PROVIDERS: Internal Medicine Medical Oncology; Visit Provider Radiology Radiation Oncology
DX: Z51.0 Encounter for antineoplastic radiation therapy (principal); C50.412 Malignant neoplasm of upper-outer quadrant of left female breast; Z17.1 Estrogen receptor negative status [ER-]; Z79.899 Other long term (current) drug therapy; Z95.828 Presence of other vascular implants and grafts; R03.0 Elevated blood-pressure reading, without diagnosis of hypertension; Z92.25 Personal history of immunosuppression therapy
CPT/HCPCS: 36591; 77336; 77387; 77412; 80053; 85025; 86300; 99024; 99213

== ENCOUNTER 2024-09-01 08:08 | Oncology outpatient (recurring) (ONCR) | payer MEDICARE, MEDICAID, SELFPAY ==
[2024-09-01 08:46] LABS: Basophils % 0.9 %; Eosinophils # 0.5 10^3/uL (0.0-0.8); Hematocrit 37.4 % (36-47); Lymphocytes % 21.1 %; Mean Corpuscular HGB Conc 32.1 g/dL (30-55); Mean Corpuscular Hemoglobin 32.5 pg (27-33); Mean Corpuscular Volume 101.4 fl (85-98); Mean Platelet Volume 9.4 fL (7.4-10.4); Monocytes # 0.4 10^3/uL (0.2-0.9); Monocytes % 8.8 %; Nucleated Red Blood Cells % 0 %; Platelet Count 155 10^3/cmm (157-399); Red Blood Count 3.69 10^6/uL (3.85-5.65); Red Cell Distribution Width 13.5 % (12.1-15.1); White Blood Count 4.65 10^3/uL (3.29-11.43)
[2024-09-01 09:17] LABS: Alanine Aminotransferase 12 U/L (0-33); Albumin Level 3.4 g/dL (3.5-5.2); Alkaline Phosphatase 69 U/L (35-105); Anion Gap 17.3 (5-19); Aspartate Amino Transferase 19 U/L (0-32); Blood Urea Nitrogen 24 mg/dL (8-23); Calcium 9.4 mg/dL (8.5-10.5); Carbon Dioxide 21 mmol/L (22-29); Chloride 107 mmol/L (98-107); Globulin 2.5 g/dL (1.3-4.6); Glucose 124 mg/dL (65-115); Osmolality Calculated 297 mOsm/kg (285-295); Potassium 4.3 mmol/L (3.5-5.1); Sodium 141 mmol/L (136-145); Total Bilirubin 0.2 mg/dL (0.15-1.2); Total Protein 5.9 g/dL (6.6-8.7)
[2024-09-01] MEDS: pembrolizumab 200 MG in sodium chloride 0.9% 250 ML 516 MG IV (10:13)
[2024-09-01] MEDS: sodium chloride 0.9% 250 ML 100 ML IV (10:45)
[2024-09-01 11:03] VITALS: BP 119/63; PULSE 76; RESP 16; TEMP 36.7; O2SAT 96
== END 2024-09-01 23:59 | disposition home or self-care (01) ==
PROVIDERS: Nurse Practitioner Family; Visit Provider Radiology Radiation Oncology
DX: Z51.12 Encounter for antineoplastic immunotherapy (principal); C50.412 Malignant neoplasm of upper-outer quadrant of left female breast; Z17.1 Estrogen receptor negative status [ER-]; Z95.828 Presence of other vascular implants and grafts; I10 Essential (primary) hypertension; M89.9 Disorder of bone, unspecified; R91.8 Other nonspecific abnormal finding of lung field; Z95.2 Presence of prosthetic heart valve; Z79.52 Long term (current) use of systemic steroids; Z79.899 Other long term (current) drug therapy; J30.2 Other seasonal allergic rhinitis
CPT/HCPCS: 80053; 85025; 96413; 99214; J7050; J9271

== ENCOUNTER 2024-09-22 10:09 | Oncology outpatient (recurring) (ONCR) | payer MEDICARE, MEDICAID, SELFPAY ==
[2024-09-22 10:39] LABS: Basophils # 0.1 10^3/uL (0.0-0.1); Eosinophils # 0.3 10^3/uL (0.0-0.8); Eosinophils % 5.7 %; Hematocrit 36.8 % (36-47); Lymphocytes # 1.2 10^3/uL (0.8-4.8); Lymphocytes % 20.1 %; Mean Corpuscular HGB Conc 32.6 g/dL (30-55); Mean Corpuscular Hemoglobin 31.9 pg (27-33); Mean Corpuscular Volume 97.9 fl (85-98); Mean Platelet Volume 9.5 fL (7.4-10.4); Monocytes # 0.7 10^3/uL (0.2-0.9); Monocytes % 11.8 %; Neutrophils # 3.56 10^3/uL (1.8-7.7); Neutrophils % 61.1 %; Nucleated Red Blood Cells % 0 %; Platelet Count 168 10^3/cmm (157-399); Red Blood Count 3.76 10^6/uL (3.85-5.65); Red Cell Distribution Width 13.7 % (12.1-15.1); White Blood Count 5.83 10^3/uL (3.29-11.43)
[2024-09-22 11:01] LABS: Alanine Aminotransferase 13 U/L (0-33); Albumin Level 3.5 g/dL (3.5-5.2); Alkaline Phosphatase 63 U/L (35-105); Anion Gap 14.5 (5-19); Aspartate Amino Transferase 19 U/L (0-32); Blood Urea Nitrogen 31 mg/dL (8-23); CA 15-3 32.1 U/mL (0-25); Calcium 9.4 mg/dL (8.5-10.5); Carbon Dioxide 22 mmol/L (22-29); Chloride 107 mmol/L (98-107); Creatinine Clr Calc Pharmacy 59.8401; Globulin 2.8 g/dL (1.3-4.6); Glucose 88 mg/dL (65-115); Osmolality Calculated 294 mOsm/kg (285-295); Potassium 4.5 mmol/L (3.5-5.1); Sodium 139 mmol/L (136-145); Total Bilirubin 0.2 mg/dL (0.15-1.2); Total Protein 6.3 g/dL (6.6-8.7)
[2024-09-22] MEDS: pembrolizumab 200 MG in sodium chloride 0.9% 250 ML 516 MG IV (12:01)
== END 2024-09-22 23:59 | disposition home or self-care (01) ==
PROVIDERS: Visit Provider Nurse Practitioner Family
DX: Z51.12 Encounter for antineoplastic immunotherapy (principal); C50.412 Malignant neoplasm of upper-outer quadrant of left female breast; Z17.1 Estrogen receptor negative status [ER-]; R03.0 Elevated blood-pressure reading, without diagnosis of hypertension; R91.1 Solitary pulmonary nodule; M89.9 Disorder of bone, unspecified; Z98.890 Other specified postprocedural states; Z79.899 Other long term (current) drug therapy
CPT/HCPCS: 80053; 85025; 86300; 96413; 99213; A4222; J7050; J9271

== ENCOUNTER 2024-10-08 16:17 | Emergency (ER) | payer MEDICARE, MEDICAID, SELFPAY ==
[2024-10-08 16:23] VITALS: BP 113/76; PULSE 83; RESP 16; TEMP 36.6; O2SAT 97
--- NOTE | 2024-10-08 16:43 | XRR_ITS ---
PROCEDURE INFORMATION: Exam: XR Chest Exam date and time: 10/08/2024 5:26 PM Age: 84 years old Clinical indication: Cough and dyspnea; Prior surgery; Surgery date: 6+ months; Surgery type: Med port, aortic valve replacement; Additional info: Dyspnea/cough TECHNIQUE: Imaging protocol: Radiologic exam of the chest. Views: 1 view. COMPARISON: CR XR chest 1V portable [id number] 04/22/2024 4:07 PM FINDINGS: Tubes, catheters and devices: Inferior port catheter is in place with its tip in the region of the right atrium near the cavoatrial junction. Lungs: There are multiple bilateral new pulmonary nodules not seen on 04/22/2024 with least 5 nodules on the right measuring up to 2.1 cm in greatest diameter and a 2 cm sized nodule retrocardiac left lower lobe and possibly other smaller pulmonary nodules. These findings are worrisome for pulmonary metastasis. There is no pulmonary venous congestion. Pleural spaces: Unremarkable. No pleural effusion. No pneumothorax. Heart/Mediastinum: Heart is within normal limits of size. There are findings of TAVR. Bones/joints: Unremarkable. Soft tissues: There are postsurgical changes in the left breast with multiple surgical clips. XR/XR chest 1V portable [id number] IMPRESSION: Multiple bilateral pulmonary nodules worrisome for pulmonary metastasis.
--- NOTE | 2024-10-08 16:44 | ECG_ITS ---
[facility] Test Date: 2024-10-08 Pat Name: Janet Calvillo Department: Room: Gender: Female [employer] Room: : 1940 Requested By: Yordan Albarado Order Number: [id number] Lexa MD: Albert Torres M.D. Measurements Intervals [place]jo Rate: 76 P: 35 MS: 159 QRS: -31 QRSD: 147 T: 75 QT: 430 QTc: 486 Interpretive Statements SINUS RHYTHM LEFT AXIS DEVIATION [QRS AXIS < -30] LEFT BUNDLE BRANCH BLOCK [120+ ms QRS DURATION, 80+ ms Q/S IN V1/V2, 85+ ms R IN I/aVL/V5/V6] Compared to ECG 04/22/2024 21:10:26 Left-axis deviation now present Electronically Signed On 10-10-2024 19:26:36 CDT by Albert Torres M.D. [email or web address]
[2024-10-08 17:30] LABS: Basophils # 0.1 10^3/uL (0.0-0.1); Basophils % 1.1 %; Eosinophils # 0.4 10^3/uL (0.0-0.8); Eosinophils % 7.8 %; Hematocrit 39.2 % (36-47); Lymphocytes # 0.9 10^3/uL (0.8-4.8); Mean Corpuscular HGB Conc 33.2 g/dL (30-55); Mean Corpuscular Hemoglobin 31.6 pg (27-33); Mean Corpuscular Volume 95.1 fl (85-98); Mean Platelet Volume 9.1 fL (7.4-10.4); Monocytes # 0.6 10^3/uL (0.2-0.9); Monocytes % 11.5 %; Neutrophils % 62.4 %; Nucleated Red Blood Cells % 0 %; Platelet Count 179 10^3/cmm (157-399); Red Blood Count 4.12 10^6/uL (3.85-5.65); Red Cell Distribution Width 13.2 % (12.1-15.1); White Blood Count 5.29 10^3/uL (3.29-11.43)
--- NOTE | 2024-10-08 17:38 | W.ED.WEAKNES ---
Documented by User: Yordan Stewart DO 10/09/24 06:48 HPI - Weakness General: Chief complaint: Weakness Stated complaint: generalized weakness Time Seen by Provider: 10/08/24 17:34 History of Present Illness: 84-year-old female presents emergency room complaining of generalized weakness. She said the last few days has been quite a bit worse she has a history of stage II breast cancers diagnosed about 2 years ago she underwent lumpectomy and then radiation she is currently getting some immune therapy she has a port. 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 Previous aortic stenosis which was repaired by TAVR. Patient's notes that whenever she stands up she gets very lightheaded and dizzy and will nearly pass out if she does not sit back down. Has been progressively worsening last several days. 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 Primary osteoarthritis of left knee Iron deficiency anemia Dyslipidemia Port-A-Cath in place placed 12/2022 Adrenal insufficiency hospital stay 08/2023 Reversible airway obstruction Lesion of right k[place] de[place] ureter History of recurrent UTI (urinary tract infection) Pulmonary nodules Interstitial lung disease Asthma Breast cancer Hydronephrosis of right kidney Osteoporosis Arthritis Aortic stenosis Hypertension DVT (deep venous thrombosis) Pulmonary embolism Obesity Surgical History History of cardiac catheterization 07/2023 no obstructive disease Hx of tubal ligation Hx of cystoscopy Hx of colonoscopy Age 65 Hx of cholecystectomy H/O: hysterectomy Hx of cataract surgery S/P tonsillectomy Family History Father , AT 92 Congestive heart failure (CHF) Mother , AT 100 of unknown cause Other CAD (coronary artery disease) Cancer Diabetes Hyperlipidemia Hypertension Stroke Denies family history of Psychiatric illness Chronic kidney disease (CKD) Suicide Family history of premature coronary artery disease Lung disease Social History Smoking and tobacco/nicotine status: never used tobacco/nicotine Alcohol intake: never Substance/Drug Use: never Marital status: / Current occupational status: retired and disabled Physical Exam Const: GENERAL APPEARANCE: cooperative ORIENTATION/CONSCIOUSNESS: Yes awake, Yes oriented to person, Yes oriented to place and Yes oriented to time HENMT: COMMON NORMALS: normocephalic, atraumatic and hearing grossly normal bilaterally HEAD & SCALP: normocephalic and atraumatic Resp: COMMON NORMALS: normal respiratory effort, No retractions, No use of accessory muscles and clear to auscultation bilaterally AUSCULTATION: clear to auscultation bilaterally Cardio: COMMON NORMALS: regular rate, regular rhythm and No murmurs present (Cardio) RATE: regular rate RHYTHM: regular rhythm GI: COMMON NORMALS: Soft to palpation and No hepatosplenomegaly present AUSCULTATION: Yes normoactive bowel sounds PALPATION: Yes Soft to palpation, No Tenderness to palpation present (GI), No Guarding due to palpation present (GI) and Yes No hepatosplenomegaly present Extremity: COMMON NORMALS: normal to inspection, capillary refill normal, no clubbing, cyanosis or edema, no calf tenderness and no pedal edema Neuro: SENSORIUM/ORIENTATION: Yes oriented to person, Yes oriented to place and Yes oriented to time Skin: COMMON NORMALS: no rashes or lesions noted GENERAL SKIN EXAM: no rashes or lesions noted Course Vital Signs: Vital signs: Vital Signs Temperature 97.7 F 10/09/24 00:25 Pulse Rate 81 10/09/24 00:25 Respiratory Rate 19 H 10/09/24 00:25 Blood Pressure 107/69 10/09/24 00:25 Pulse Oximetry 94 10/09/24 00:25 Oxygen Delivery Me thod Room Air 10/08/24 22:00 MDM - Weakness Medical Decision Making Care signed out to Dr. Dominguez at change of shift. See final notes for diagnosis and disposition. Lab Data 10/08/24 17:18 10/08/24 17:18 Radiology Impressions Chest X-Ray 10/08/24 16:43 IMPRESSION: Multiple bilateral pulmonary nodules worrisome for pulmonary metastasis. Head CT 10/08/24 18:30 IMPRESSION: No acute intracranial finding Chest CTA 10/08/24 19:50 IMPRESSION: 1. Pulmonary metastasis as seen on recent chest radiograph 2. Small right pleural effusion 3. No evidence of pulmonary embolism. Laboratory Results WBC 5.29 10^3/uL (3.29-11.43) 10/08/24 17:18 RBC 4.12 10^6/uL (3.85-5.65) 10/08/24 17:18 Hgb 13.00 g/dL (11.27-16.99) 10/08/24 17:18 Hct 39.2 % (36-47) 10/08/24 17:18 MCV 95.1 fl (85-98) 10/08/24 17:18 MCH 31.6 pg (27-33) 10/08/24 17:18 MCHC 33.2 g/dL (30-55) 10/08/24 17:18 RDW 13.2 % (12.1-15.1) 10/08/24 17:18 Plt Count 179 10^3/cmm (157-399) 10/08/24 17:18 MPV 9.1 fL (7.4-10.4) 10/08/24 17:18 Neut % (Auto) 62.4 % 10/08/24 17:18 Lymph % (Auto) 17.0 % 10/08/24 17:18 Shannon % (Auto) 11.5 % 10/08/24 17:18 Eos % (Auto) 7.8 % 10/08/24 17:18 Baso % (Auto) 1.1 % 10/08/24 17:18 Neut # (Auto) 3.30 10^3/uL (1.8-7.7) 10/08/24 17:18 Lymph # (Auto) 0.9 10^3/uL (0.8-4.8) 10/08/24 17:18 Shannon # (Auto) 0.6 10^3/uL (0.2-0.9) 10/08/24 17:18 Eos # (Auto) 0.4 10^3/uL (0.0-0.8) 10/08/24 17:18 Baso # (Auto) 0.1 10^3/uL (0.0-0.1) 10/08/24 17:18 Nucleated RBC % (auto) 0 % 10/08/24 17:18 Nucleated RBCs # 0.0 /100WBC 10/08/24 17:18 Sodium 135 mmol/L (136-145) L 10/08/24 17:18 Potassium 3.9 mmol/L (3.5-5.1) 10/08/24 17:18 Chloride 101 mmol/L (98-107) 10/08/24 17:18 Carbon Dioxide 24 mmol/L (22-29) 10/08/24 17:18 Anion Gap 13.9 (5-19) 10/08/24 17:18 BUN 17 mg/dL (8-23) 10/08/24 17:18 Creatinine 0.8 mg/dL (0.5-0.9) 10/08/24 17:18 GFR Calculation Not Reportable 10/08/24 17:18 Glucose 115 mg/dL (65-115) 10/08/24 17:18 Calculated Osmolality 282 mOsm/kg (285-295) L 10/08/24 17:18 Calcium 9.2 mg/dL (8.5-10.5) 10/08/24 17:18 Total Bilirubin 0.2 mg/dL (0.15-1.2) 10/08/24 17:18 AST 21 U/L (0-32) 10/08/24 17:18 ALT 12 U/L (0-33) 10/08/24 17:18 Alkaline Phosphatase 72 U/L (35-105) 10/08/24 17:18 Total Protein 6.3 g/dL (6.6-8.7) L 10/08/24 17:18 Albumin 3.5 g/dL (3.5-5.2) 10/08/24 17:18 Globulin 2.8 g/dL (1.3-4.6) 10/08/24 17:18 Urine Color Yellow (Yellow) 10/08/24 18:05 Urine Appearance Clear (CLEAR) 10/08/24 18:05 Urine pH 6.5 (5-7) 10/08/24 18:05 Ur Specific Waller 1.020 (1.005-1.030) 10/08/24 18:05 Urine Protein Negative (Negative) 10/08/24 18:05 Urine Glucose (UA) Negative (Normal) 10/08/24 18:05 Urine Ketones Negative (Negative) 10/08/24 18:05 Urine Blood 2+ (Negative) A 10/08/24 18:05 Urine Nitrate Negative (Negative) 10/08/24 18:05 Urine Bilirubin Negative (Negative) 10/08/24 18:05 Urine Urobilinogen 0.2 mg/dL (Negative) 10/08/24 18:05 Ur Leukocyte Esterase 1+ (Negative) A 10/08/24 18:05 Urine RBC 51-100 /hpf (0-2) H 10/08/24 18:05 Urine WBC 11-20 /hpf (0-5) H 10/08/24 18:05 Ur Squamous Epith Cells 11-20 /hpf (0-5) H 10/08/24 18:05 Amorphous Sediment Not Reportable 10/08/24 18:05 Urine Bacteria None seen /hpf (NONE) 10/08/24 18:05 Hyaline Casts 0.81 /lpf 10/08/24 18:05 Discharge Plan Discharge Patient Disposition: Home Clinical Impression: Physical deconditioning, Weakness, Interstitial lung disease, 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 Condition: Stable Prescriptions: New albuterol sulfate 90 mcg/actuation HFA aerosol inhaler 2 inh INHALATION Q4H PRN (Reason: shortness of breath or wheezing) Qty: 6.7 1RF No Action meclizine 25 mg tablet 25 mg PO TID PRN (Reason: Dizziness) tolterodine 4 mg capsule,extended release 24hr 4 mg PO DAILY potassium chloride 10 mEq capsule, extended release 10 meq PO DAILY Prolia 60 mg/mL syringe 60 mg SUBCUT Q6M cyanocobalamin (vitamin B-12) 2,500 mcg tablet 2,500 mcg PO DAILY (DME) Nebulizer and accessory kit See Rx Instructions .Route .MEDSUPPLY Qty: 1 0RF Patient Comments: Patient states that they do not have the machine. Rx Instructions: As directed (DME) custom inserts See Rx Instructions .Route .MEDSUPPLY Qty: 1 0RF Rx Instructions: As directed tizanidine 2 mg tablet 2 mg PO DAILY levothyroxine 125 mcg tablet 125 mcg PO DAILY Eliquis 5 mg tablet 5 mg PO BID Qty: 60 0RF fluoxetine 40 mg capsule 40 mg PO DAILY lorazepam 0.5 mg tablet 0.5 mg PO DAILY budesonide 0.5 mg/2 mL suspension for nebulization 0.5 mg inhalation BID PRN (Reason: Shortness Of Breath) ropinirole 0.25 mg tablet 0.25 mg PO DAILY acetaminophen 325 mg Tablet 325 mg PO QID PRN (Reason: Pain) fluticasone propion-salmeterol [Advair Diskus] 250-50 mcg/dose blister with device 1 inh INHALATION BID hydrocortisone 10 mg Tablet 10 mg PO QPM Qty: 30 0RF hydrocortisone 10 mg Tablet 20 mg PO DAILY Qty: 60 0RF Discharge Orders: Discharge ED (Routine); Ordered 10/08/24 Ordered By: Bruce Dominguez Patient Instructions: Shortness of Breath (ED), Opioid Safety, Pain Management, Weakness (Generalized) Activity Restrictions/Additional Instructions: Return for worsening weakness, mental status changes, fever, any other concerning symptoms. Use the inhaler every 4 hours while awake for the first 48 hours scheduled, then as needed following that. Call your doctor for a follow-up appointment on Friday. Print Language: Swiss Coding Level of Care Code ED Business Professor for Chg Fwd Related Data Home Medications ?Medication ?Instructions ?Recorded ?Confirmed meclizine 25 mg tablet 25 mg PO TID PRN Dizziness 12/28/19 09/22/24 potassium chloride 10 mEq 10 meq PO DAILY 12/28/19 09/22/24 capsule,extended release tolterodine 4 mg capsule,extended 4 mg PO DAILY 12/28/19 09/22/24 release 24 hr denosumab 60 mg/mL subcutaneous 60 mg SUBCUT Q6M 06/26/20 09/22/24 syringe (Prolia) cyanocobalamin (vitamin B-12) 2,500 mcg PO DAILY 07/19/21 09/22/24 2,500 mcg tablet fluoxetine 40 mg capsule 40 mg PO DAILY 12/08/23 09/22/24 lorazepam 0.5 mg tablet 0.5 mg PO DAILY 12/08/23 09/22/24 budesonide 0.5 mg/2 mL suspension 0.5 mg inhalation BID PRN 12/15/23 09/22/24 for nebulization Shortness Of Breath ropinirole 0.25 mg tablet 0.25 mg PO DAILY 12/15/23 09/22/24 levothyroxine 125 mcg tablet 125 mcg PO DAILY 03/15/24 09/22/24 tizanidine 2 mg tablet 2 mg PO DAILY 03/15/24 09/22/24 acetaminophen 325 mg tablet 325 mg PO QID PRN Pain 04/22/24 09/22/24 fluticasone 250 mcg-salmeterol 50 1 inh inhalation BID 04/22/24 09/22/24 mcg/dose blistr powdr for inhalation (Advair Diskus) Previous Rx's ?Medication ?Instructions ?Recorded Nebulizer and accessory kit #1 ea 02/05/23 custom inserts #1 ea 08/06/23 apixaban 5 mg tablet (Eliquis) 5 mg PO BID #60 tabs 09/11/23 hydrocortisone 10 mg tablet 10 mg PO QPM #30 tabs 04/25/24 hydrocortisone 10 mg tablet 20 mg (2 x 10 mg) PO DAILY #60 tabs 04/25/24 albuterol sulfate 90 mcg/actuation 2 inh inhalation Q4H PRN shortness 10/08/24 aerosol inhaler of breath or wheezing #6.7 grams Allergies Allergy/AdvReac Type Severity Reaction Status Date / Time tetanus toxoid, adsorbed Allergy Severe unknown Verified 09/22/24 10:41 ciprofloxacin (From Cipro) Allergy Unknown ADR-Vomitin Verified 09/22/24 10:41 g erythromycin base Allergy Unknown ADR-Vomitin Verified 09/22/24 10:41 g gabapentin (From Neurontin) Allergy Unknown unknown Verified 09/22/24 10:41 hydrocodone (From Vicodin) Allergy Unknown unknown Verified 09/22/24 10:41 Influenza Virus Vaccines Allergy Unknown unknown Verified 09/22/24 10:41 tramadol (From Ultram) Allergy Unknown unknown Verified 09/22/24 10:41 aspirin Allergy stomach Verified 09/22/24 10:41 pain, unbearable egg Allergy unknown Verified 09/22/24 10:41 Fish Containing Products Allergy ALGY-Rash Verified 09/22/24 10:41 NSAIDS (Non-Steroidal Allergy heartburn, Verified 09/22/24 10:41 Anti-Inflamma stomach pain Tetanus Vaccines and Toxoid Allergy unknown Verified 09/22/24 10:41 adhesive AdvReac Unknown unknown Verified 09/22/24 10:41 Documented by User: Bruce Dominguez DO 10/09/24 03:02 HPI - Weakness General: Chief complaint: Weakness Stated complaint: generalized weakness Time Seen by Provider: 10/08/24 17:34 PFSH ED PFSH: Medical History 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 Hypothyroidism COVID-2021 History of echocardiogram 06/2023 EF 60%, Grade I/IV diastolic dysfunction, severe AV stenosis 0.99, mean gradient 40.2 mmHg, peak velocity 4.19 ms 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 Primary osteoarthritis of left knee Iron deficiency anemia Dyslipidemia Port-A-Cath in place placed 12/2022 Adrenal insufficiency hospital stay 08/2023 Reversible airway obstruction Lesion of right [place] de[place] ureter History of recurrent UTI (urinary tract infection) Pulmonary nodules Interstitial lung disease Asthma Breast cancer Hydronephrosis of right kidney Osteoporosis Arthritis Aortic stenosis Hypertension DVT (deep venous thrombosis) Pulmonary embolism Obesity Surgical History History of cardiac catheterization 07/2023 no obstructive disease Hx of tubal ligation Hx of cystoscopy Hx of colonoscopy Age 65 Hx of cholecystectomy H/O: hysterectomy Hx of cataract surgery S/P tonsillectomy Family History Father , AT 92 Congestive heart failure (CHF) Mother , AT 100 of unknown cause Other CAD (coronary artery disease) Cancer Diabetes Hyperlipidemia Hypertension Stroke Denies family history of Psychiatric illness Chronic kidney disease (CKD) Suicide Family history of premature coronary artery disease Lung disease Social History Smoking and tobacco/nicotine status: never used tobacco/nicotine Alcohol intake: never Substance/Drug Use: never Marital status: / Current occupational status: retired and disabled Course Vital Signs: Vital signs: Vital Signs Temperature 97.7 F 10/09/24 00:25 Pulse Rate 81 10/09/24 00:25 Respiratory Rate 19 H 10/09/24 00:25 Blood Pressure 107/69 10/09/24 00:25 Pulse Oximetry 94 10/09/24 00:25 Oxygen Delivery Me thod Room Air 10/08/24 22:00 MDM - Weakness Medical Decision Making Care signed out to Dr. Dominguez at change of shift. See final notes for diagnosis and disposition. Patient checked out to me at shift change. Vitals been stable. She has not been hypertensive any longer. She is orthostatically hypotensive, with blood pressure dropping from 130 systolic to 105 systolic on standing from sitting. She is given a liter bolus of fluid. She is improved because of this. She has not been hypoxic. She is walked in the [place], and does get short of breath, but oxygen saturations do not fall. Chest CTA does not reveal pulmonary embolus, but there is a small right pleural effusion and multiple pulmonary metastases not present on prior films. Head CT is negative. Without significant hypoxia on walking, able to get up, and no longer being hypotensive, benign laboratory, should be allowed discharge to home. Close outpatient follow-up, especially given her worsening metastasis. Lab Data 10/08/24 17:18 10/08/24 17:18 Radiology Impressions Chest X-Ray 10/08/24 16:43 IMPRESSION: Multiple bilateral pulmonary nodules worrisome for pulmonary metastasis. Head CT 10/08/24 18:30 IMPRESSION: No acute intracranial finding Chest CTA 10/08/24 19:50 IMPRESSION: 1. Pulmonary metastasis as seen on recent chest radiograph 2. Small right pleural effusion 3. No evidence of pulmonary embolism. Laboratory Results WBC 5.29 10^3/uL (3.29-11.43) 10/08/24 17:18 RBC 4.12 10^6/uL (3.85-5.65) 10/08/24 17:18 Hgb 13.00 g/dL (11.27-16.99) 10/08/24 17:18 Hct 39.2 % (36-47) 10/08/24 17:18 MCV 95.1 fl (85-98) 10/08/24 17:18 MCH 31.6 pg (27-33) 10/08/24 17:18 MCHC 33.2 g/dL (30-55) 10/08/24 17:18 RDW 13.2 % (12.1-15.1) 10/08/24 17:18 Plt Count 179 10^3/cmm (157-399) 10/08/24 17:18 MPV 9.1 fL (7.4-10.4) 10/08/24 17:18 Neut % (Auto) 62.4 % 10/08/24 17:18 Lymph % (Auto) 17.0 % 10/08/24 17:18 Shannon % (Auto) 11.5 % 10/08/24 17:18 Eos % (Auto) 7.8 % 10/08/24 17:18 Baso % (Auto) 1.1 % 10/08/24 17:18 Neut # (Auto) 3.30 10^3/uL (1.8-7.7) 10/08/24 17:18 Lymph # (Auto) 0.9 10^3/uL (0.8-4.8) 10/08/24 17:18 Shannon # (Auto) 0.6 10^3/uL (0.2-0.9) 10/08/24 17:18 Eos # (Auto) 0.4 10^3/uL (0.0-0.8) 10/08/24 17:18 Baso # (Auto) 0.1 10^3/uL (0.0-0.1) 10/08/24 17:18 Nucleated RBC % (auto) 0 % 10/08/24 17:18 Nucleated RBCs # 0.0 /100WBC 10/08/24 17:18 Sodium 135 mmol/L (136-145) L 10/08/24 17:18 Potassium 3.9 mmol/L (3.5-5.1) 10/08/24 17:18 Chloride 101 mmol/L (98-107) 10/08/24 17:18 Carbon Dioxide 24 mmol/L (22-29) 10/08/24 17:18 Anion Gap 13.9 (5-19) 10/08/24 17:18 BUN 17 mg/dL (8-23) 10/08/24 17:18 Creatinine 0.8 mg/dL (0.5-0.9) 10/08/24 17:18 GFR Calculation Not Reportable 10/08/24 17:18 Glucose 115 mg/dL (65-115) 10/08/24 17:18 Calculated Osmolality 282 mOsm/kg (285-295) L 10/08/24 17:18 Calcium 9.2 mg/dL (8.5-10.5) 10/08/24 17:18 Total Bilirubin 0.2 mg/dL (0.15-1.2) 10/08/24 17:18 AST 21 U/L (0-32) 10/08/24 17:18 ALT 12 U/L (0-33) 10/08/24 17:18 Alkaline Phosphatase 72 U/L (35-105) 10/08/24 17:18 Total Protein 6.3 g/dL (6.6-8.7) L 10/08/24 17:18 Albumin 3.5 g/dL (3.5-5.2) 10/08/24 17:18 Globulin 2.8 g/dL (1.3-4.6) 10/08/24 17:18 Urine Color Yellow (Yellow) 10/08/24 18:05 Urine Appearance Clear (CLEAR) 10/08/24 18:05 Urine pH 6.5 (5-7) 10/08/24 18:05 Ur Specific Waller 1.020 (1.005-1.030) 10/08/24 18:05 Urine Protein Negative (Negative) 10/08/24 18:05 Urine Glucose (UA) Negative (Normal) 10/08/24 18:05 Urine Ketones Negative (Negative) 10/08/24 18:05 Urine Blood 2+ (Negative) A 10/08/24 18:05 Urine Nitrate Negative (Negative) 10/08/24 18:05 Urine Bilirubin Negative (Negative) 10/08/24 18:05 Urine Urobilinogen 0.2 mg/dL (Negative) 10/08/24 18:05 Ur Leukocyte Esterase 1+ (Negative) A 10/08/24 18:05 Urine RBC 51-100 /hpf (0-2) H 10/08/24 18:05 Urine WBC 11-20 /hpf (0-5) H 10/08/24 18:05 Ur Squamous Epith Cells 11-20 /hpf (0-5) H 10/08/24 18:05 Amorphous Sediment Not Reportable 10/08/24 18:05 Urine Bacteria None seen /hpf (NONE) 10/08/24 18:05 Hyaline Casts 0.81 /lpf 10/08/24 18:05 All radiology interpretation(s) finalized by discharge Discharge Plan Discharge Patient Disposition: Home Clinical Impression: Physical deconditioning, Weakness, Interstitial lung disease, 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 Condition: Stable Prescriptions: New albuterol sulfate 90 mcg/actuation HFA aerosol inhaler 2 inh INHALATION Q4H PRN (Reason: shortness of breath or wheezing) Qty: 6.7 1RF No Action meclizine 25 mg tablet 25 mg PO TID PRN (Reason: Dizziness) tolterodine 4 mg capsule,extended release 24hr 4 mg PO DAILY potassium chloride 10 mEq capsule, extended release 10 meq PO DAILY Prolia 60 mg/mL syringe 60 mg SUBCUT Q6M cyanocobalamin (vitamin B-12) 2,500 mcg tablet 2,500 mcg PO DAILY (DME) Nebulizer and accessory kit See Rx Instructions .Route .MEDSUPPLY Qty: 1 0RF Patient Comments: Patient states that they do not have the machine. Rx Instructions: As directed (DME) custom inserts See Rx Instructions .Route .MEDSUPPLY Qty: 1 0RF Rx Instructions: As directed tizanidine 2 mg tablet 2 mg PO DAILY levothyroxine 125 mcg tablet 125 mcg PO DAILY Eliquis 5 mg tablet 5 mg PO BID Qty: 60 0RF fluoxetine 40 mg capsule 40 mg PO DAILY lorazepam 0.5 mg tablet 0.5 mg PO DAILY budesonide 0.5 mg/2 mL suspension for nebulization 0.5 mg inhalation BID PRN (Reason: Shortness Of Breath) ropinirole 0.25 mg tablet 0.25 mg PO DAILY acetaminophen 325 mg Tablet 325 mg PO QID PRN (Reason: Pain) fluticasone propion-salmeterol [Advair Diskus] 250-50 mcg/dose blister with device 1 inh INHALATION BID hydrocortisone 10 mg Tablet 10 mg PO QPM Qty: 30 0RF hydrocortisone 10 mg Tablet 20 mg PO DAILY Qty: 60 0RF Discharge Orders: Discharge ED (Routine); Ordered 10/08/24 Ordered By: Bruce Dominguez Patient Instructions: Shortness of Breath (ED), Opioid Safety, Pain Management, Weakness (Generalized) Activity Restrictions/Additional Instructions: Return for worsening weakness, mental status changes, fever, any other concerning symptoms. Use the inhaler every 4 hours while awake for the first 48 hours scheduled, then as needed following that. Call your doctor for a follow-up appointment on Friday. Print Language: Swiss Coding Level of Care Code ED Business Professor for Chg Fwd Related Data Home Medications ?Medication ?Instructions ?Recorded ?Confirmed meclizine 25 mg tablet 25 mg PO TID PRN Dizziness 12/28/19 09/22/24 potassium chloride 10 mEq 10 meq PO DAILY 12/28/19 09/22/24 capsule,extended release tolterodine 4 mg capsule,extended 4 mg PO DAILY 12/28/19 09/22/24 release 24 hr denosumab 60 mg/mL subcutaneous 60 mg SUBCUT Q6M 06/26/20 09/22/24 syringe (ProlSpoonity) cyanocobalamin (vitamin B-12) 2,500 mcg PO DAILY 07/19/21 09/22/24 2,500 mcg tablet fluoxetine 40 mg capsule 40 mg PO DAILY 12/08/23 09/22/24 lorazepam 0.5 mg tablet 0.5 mg PO DAILY 12/08/23 09/22/24 budesonide 0.5 mg/2 mL suspension 0.5 mg inhalation BID PRN 12/15/23 09/22/24 for nebulization Shortness Of Breath ropinirole 0.25 mg tablet 0.25 mg PO DAILY 12/15/23 09/22/24 levothyroxine 125 mcg tablet 125 mcg PO DAILY 03/15/24 09/22/24 tizanidine 2 mg tablet 2 mg PO DAILY 03/15/24 09/22/24 acetaminophen 325 mg tablet 325 mg PO QID PRN Pain 04/22/24 09/22/24 fluticasone 250 mcg-salmeterol 50 1 inh inhalation BID 04/22/24 09/22/24 mcg/dose blistr powdr for inhalation (Advair Diskus) Previous Rx's ?Medication ?Instructions ?Recorded Nebulizer and accessory kit #1 ea 02/05/23 custom inserts #1 ea 08/06/23 apixaban 5 mg tablet (Eliquis) 5 mg PO BID #60 tabs 09/11/23 hydrocortisone 10 mg tablet 10 mg PO QPM #30 tabs 04/25/24 hydrocortisone 10 mg tablet 20 mg (2 x 10 mg) PO DAILY #60 tabs 04/25/24 albuterol sulfate 90 mcg/actuation 2 inh inhalation Q4H PRN shortness 10/08/24 aerosol inhaler of breath or wheezing #6.7 grams Allergies Allergy/AdvReac Type Severity Reaction Status Date / Time tetanus toxoid, adsorbed Allergy Severe unknown Verified 09/22/24 10:41 ciprofloxacin (From Cipro) Allergy Unknown ADR-Vomitin Verified 09/22/24 10:41 g erythromycin base Allergy Unknown ADR-Vomitin Verified 09/22/24 10:41 g gabapentin (From Neurontin) Allergy Unknown unknown Verified 09/22/24 10:41 hydrocodone (From Vicodin) Allergy Unknown unknown Verified 09/22/24 10:41 Influenza Virus Vaccines Allergy Unknown unknown Verified 09/22/24 10:41 tramadol (From Ultram) Allergy Unknown unknown Verified 09/22/24 10:41 aspirin Allergy stomach Verified 09/22/24 10:41 pain, unbearable egg Allergy unknown Verified 09/22/24 10:41 Fish Containing Products Allergy ALGY-Rash Verified 09/22/24 10:41 NSAIDS (Non-Steroidal Allergy heartburn, Verified 09/22/24 10:41 Anti-Inflamma stomach pain Tetanus Vaccines and Toxoid Allergy unknown Verified 09/22/24 10:41 adhesive AdvReac Unknown unknown Verified 09/22/24 10:41
[2024-10-08 17:51] LABS: Alanine Aminotransferase 12 U/L (0-33); Albumin Level 3.5 g/dL (3.5-5.2); Alkaline Phosphatase 72 U/L (35-105); Anion Gap 13.9 (5-19); Aspartate Amino Transferase 21 U/L (0-32); Blood Urea Nitrogen 17 mg/dL (8-23); Calcium 9.2 mg/dL (8.5-10.5); Carbon Dioxide 24 mmol/L (22-29); Chloride 101 mmol/L (98-107); Creatinine Clr Calc Pharmacy 59.3903; Globulin 2.8 g/dL (1.3-4.6); Glucose 115 mg/dL (65-115); Osmolality Calculated 282 mOsm/kg (285-295); Potassium 3.9 mmol/L (3.5-5.1); Sodium 135 mmol/L (136-145); Total Bilirubin 0.2 mg/dL (0.15-1.2); Total Protein 6.3 g/dL (6.6-8.7)
[2024-10-08 18:08] VITALS: BP 105/67; BP 134/77; BP 137/70
[2024-10-08 18:09] VITALS: BP 130/78
[2024-10-08 18:24] LABS: Bilirubin Urine Negative (Negative); Blood Urine 2+ (Negative); Glucose Urine UA Negative (Normal); Ketones Urine Negative (Negative); Leukocyte Esterase Urine 1+ (Negative); Nitrate Urine Negative (Negative); Protein Urine Negative (Negative); Urine Appearance Clear (CLEAR); Urine Color Yellow (Yellow); Urobilinogen Urine 0.2 mg/dL (Negative); pH Urine 6.5 (5-7)
[2024-10-08 18:29] LABS: Add Urine Microscopic? YES; Bacteria Urine None Seen /hpf; Hyaline Casts Urine 0.81 /lpf; RBC Urine 51-100 /hpf (0-2)
--- NOTE | 2024-10-08 18:30 | CTR_ITS ---
PROCEDURE INFORMATION: Exam: CT Head Without Contrast Exam date and time: 10/08/2024 6:52 PM Age: 84 years old Clinical indication: C/O dizziness. ; Additional info: Dizzy TECHNIQUE: Imaging protocol: Computed tomography of the head without contrast. Radiation optimization: All CT scans at this facility use at least one of these dose optimization techniques: automated exposure control; mA and/or kV adjustment per patient size (includes targeted exams where dose is matched to clinical indication); or iterative reconstruction. COMPARISON: No relevant prior studies available. RADIATION DOSE METRICS: Total DLP (mGy-cm): 1033.5 FINDINGS: Brain: There is moderate cortical atrophy. Low-density changes in the white matter are consistent with nonspecific small vessel chronic ischemic change. There is no intracranial mass, hemorrhage or edema. Cerebral ventricles: No ventriculomegaly. Paranasal sinuses: Visualized sinuses are unremarkable. No fluid levels. Mastoid air cells: Visualized mastoid air cells are well aerated. Bones: Unremarkable. No acute fracture. Soft tissues: Unremarkable. CT/CT head wo con* [id number] IMPRESSION: No acute intracranial finding
[2024-10-08 18:35] VITALS: PULSE 77; O2SAT 98
[2024-10-08 19:20] VITALS: BP 95/57; PULSE 74; RESP 19; TEMP 36.6; O2SAT 98
--- NOTE | 2024-10-08 19:50 | CTR_ITS ---
PROCEDURE INFORMATION: Exam: CTA Chest With Contrast Exam date and time: 10/08/2024 8:07 PM Age: 84 years old Clinical indication: Cough and shortness of breath; Prior surgery; Surgery date: 6+ months; Surgery type: Aortic graft. Port a cath; Cough with SOB. History of breast cancer with lung mets. TECHNIQUE: Imaging protocol: Computed tomographic angiography of the chest with contrast. Exam focused on the arteries. 3D rendering (Not supervised by radiologist): MIP and/or 3D reconstructed images were created by the technologist. Radiation optimization: All CT scans at this facility use at least one of these dose optimization techniques: automated exposure control; mA and/or kV adjustment per patient size (includes targeted exams where dose is matched to clinical indication); or iterative reconstruction. Contrast material: OMNI 350; Contrast volume: 52 ml; Contrast route: INTRAVENOUS (IV); COMPARISON: CT angio chest PE protcl [id number] 12/08/2023 12:59 PM RADIATION DOSE METRICS: Total DLP (mGy-cm): 400.78 FINDINGS: Pulmonary arteries: There is no evidence of filling defects within the pulmonary arterial circulation to suggest pulmonary embolism. Aorta: There is mild ectasia ascending thoracic aorta measuring 4.1 cm not significantly changed. This most likely represent some post stenotic dilatation. There is no thoracic aortic aneurysm or dissection. Lungs: There has been development of numerous pulmonary nodules ranging from 2 mm to 2 cm in size, at least 16 on the left and 25 on the right. These are worrisome for pulmonary metastasis. Pleural spaces: There is small right pleural effusion. Heart: There are findings of TAVR. This is new from 08/06/2023. Lymph nodes: There is no evidence of lymphadenopathy. Diaphragm: There is a small hiatal hernia. Liver: There is some nodular irregularity of the posterior surface of the right lobe liver not significantly changed. Bones/joints: There is no evidence of acute fracture. Soft tissues: There are postsurgical changes in the left breast with resection of left breast mass, new compared with 12/08/2023. CT/CT angio chest PE protcl [id number] IMPRESSION: 1. Pulmonary metastasis as seen on recent chest radiograph 2. Small right pleural effusion 3. No evidence of pulmonary embolism.
[2024-10-08] MEDS: iohexol 350 mg/mL 500 mL Btl (per mL) IV (20:08)
[2024-10-08] MEDS: sodium chloride 0.9% 1,000 ML 999 ML IV (20:18)
[2024-10-08 22:00] VITALS: BP 130/79; PULSE 83; RESP 22; O2SAT 94
--- NOTE | 2024-10-09 00:22 | PC.NURSE ---
2199- pt ambulated with pulse ox down hallway and returned. pts spo2 stayed between 91-94% . pt with noted increased respirations but able to tolerated ambulation. provider notified. family notified of need for ride and states will send someone. pt i no obvious distress. pt resting comfortably in bed athis time.
[2024-10-09 00:25] VITALS: BP 107/69; PULSE 81; RESP 19; TEMP 36.5; O2SAT 94
== END 2024-10-09 00:36 | disposition home or self-care (01) ==
PROVIDERS: Family Medicine; Emergency Provider Emergency Medicine
DX: R53.1 Weakness (principal); R53.81 Other malaise; J84.9 Interstitial pulmonary disease, unspecified; C78.00 Secondary malignant neoplasm of unspecified lung; Z79.01 Long term (current) use of anticoagulants; I10 Essential (primary) hypertension; Z85.3 Personal history of malignant neoplasm of breast
CPT/HCPCS: 36415; 70450; 71045; 71275; 80053; 81001; 85025; 93005; 99285; J7030

== ENCOUNTER 2024-10-15 12:43 | Emergency (ER) | payer MEDICARE, MEDICAID, SELFPAY ==
--- OUTSIDE RECORDS SUMMARY | 2024-10-11 16:00 | XMS_ITS | Encounter Summary ---
Author Organization [facility] Address 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 More than three times a week 01/05/2020 How often do you get togethe r with friends or relatives? More than three times a week 01/05/2020 How often do you attend chur ch or caodaism services? Never 01/05/2020 Do you belong to any clubs o r organizations such as shinto groups, unions, fraternal or athletic groups, or school groups? Yes 01/05/2020 How often do you attend meet ings of the clubs or organizations you belong to? Never 01/05/2020 Are you , , di vorced, , never , or living with a partner? 01/05/2020 Financial Resource Strain Answer Date R ecorded How hard is it for you to pa y for the very basics like food, housing, medical care, and heating? Somewhat hard 09/25/2021 Food Insecurity Answer Date Recorded In the past 12 months, have you worried that your food would run out before you had money to buy more? Never true 09/25/2021 In the past 12 months, did y ou run out of food and didn't have money to buy more? Never true 09/25/2021 Transportation Needs Answer Date Record ed In the past 12 months, has l ack of transportation kept you from medical appointments or from getting medications? No 09/25/2021 Lack of Transportation (Non-Medical) Not on file 09/25/2021 Feeling Safe Answer Date Recorded Are you in a relationship wi th someone who hurts you emotionally and/or physically? No 05/06/2024 Food Insecurity Answer Date Recorded Patient needs follow up regardin 08/17/2024 Transportation Needs Answer Date Record ed Patient needs follow up regardin 08/17/2024 Housing Stability Answer Date Recorded Social/Environmental Concerns No concerns Utility Needs Answer Date Recorded Patient needs follow up regardin 08/17/2024 Education Answer Date Recorded What is the highest level of school you have completed or the highest degree you have received? 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 Gender Identity Not on file Sexual Orientation Not on file documented as of this encounter Last Filed Vital Signs Vital Sign Reading Time Taken Comments Blood Pressure 116/70 10/11/2024 3:36 PM CDT Pulse 95 10/11/2024 3:36 PM CDT Temperature 36.4 C (97.6 F) 10/11/2024 3:36 PM CDT Respiratory Rate 18 10/11/2024 3:36 PM CDT Oxygen Saturation 98% 10/11/2024 3:36 PM CDT Inhaled Oxygen Concentration - - Weight 92.5 kg (204 lb) 10/11/2024 3:36 PM CDT Height 167.6 cm (5' 6 ) 10/11/2024 3:36 PM CDT Body Mass Index 32.93 10/11/2024 3:36 PM CDT documented in this encounter Progress Notes * Imani Colbert, CHOIRMASTER - 10/11/2024 4:03 PM CDT [facility] 10/11/2024 Subjective: Janet Calvillo is a 84 y.o. female who comes today for evaluation of Possible UTI and Flank Pain . History of Present Illness The patient is an 84-year-old female who presents with concerns for a urinary tract infection. She reports experiencing back pain but does not have any discomfort during urination. Additionally,she mentions episodes of confusion and difficulty in articulating her thoughts. She has a known allergy to ciprofloxacin and erythromycin. She has a history of breast cancer and is currently undergoing treatment. She was previously unaware of the presence of lung nodules until she read about it in her medical records. She has a scheduled appointment with her oncologist on Friday. She takes potassium daily because she is on Lasix. She has been taking Eliquis for years. Review of Systems Constitutional: Negative for chills, fever and malaise/fatigue. HENT: Negative for congestion, ear pain and sore throat. Eyes: Negative for blurred vision. Respiratory: Negative for cough and shortness of breath. Cardiovascular: Negative for chest pain. Gastrointestinal: Negative for abdominal pain, blood in stool, constipation, diarrhea, nausea and vomiting. Genitourinary: Positive for flank pain and hematuria. Negative for dysuria, frequency and urgency. Musculoskeletal: Negative for joint pain and myalgias. Neurological: Negative for dizziness, loss of consciousness and headaches. All other systems reviewed and are negative. Objective: Vitals: 10/11/24 1536 Temp: 97.6 ??F (36.4 ??C) Pulse: 95 BP: 116/70 Resp: 18 SpO2: 98% Physical Exam Constitutional: General: She is not in acute distress. Appearance: Normal appearance. She is not ill-appearing or toxic-appearing. HENT: Head: Normocephalic and atraumatic. Right Ear: Tympanic membrane normal. Left Ear: Tympanic membrane normal. Nose: Nose normal. Mouth/Throat: Mouth: Mucous membranes are moist. Eyes: Extraocular Movements: Extraocular movements intact. Pupils: Pupils are equal, round, and reactive to light. Neck: Vascular: No JVD. Cardiovascular: Rate and Rhythm: Normal rate and regular rhythm. Pulses: Normal pulses. Heart sounds: Normal heart sounds. Pulmonary: Effort: Pulmonary effort is normal. No respiratory distress. Breath sounds: Normal breath sounds and air entry. No decreased air movement. No wheezing, rhonchi or rales. Abdominal: General: Abdomen is flat. Bowel sounds are normal. Palpations: Abdomen is soft. Tenderness: There is no abdominal tenderness. There is no right CVA tenderness or left CVA tenderness. Musculoskeletal: General: Normal range of motion. Cervical back: Normal range of motion and neck supple. Skin: General: Skin is warm and dry. Neurological: General: No focal deficit present. Mental Status: She is alert and oriented to person, place, and time. Psychiatric: Mood and Affect: Mood normal. Behavior: Behavior normal. Past medical history, surgical history and social history reviewed. Past Medical History: Diagnosis Date Anesthesia complication Woke up X1 during surgery, states Red hair takes more med to sedate Aortic stenosis Asthma Back pain Benign paroxysmal vertigo Breast cancer ([facility]) Bursitis right hip Cataract begining of cataracts bilateral Cataract Coronary artery disease Depression Emphysema of lung ([facility]) Encounter for medication monitoring CARMEL (generalized anxiety disorder) Headache History of fracture left hand,center toe left foot, center toe right foot, right ankle Hyperlipidemia Hypothyroidism Mononeuritis of unspecified site Motion sickness Nevus Pinched nerve right hip Pulmonary embolism ([facility]) Sciatica Tendon rupture, Achilles bilateral Thromboembolism ([facility]) right leg Urinary incontinence Procedures Assessment/Plan: ICD-10-CM ICD-9-CM 1. Flank pain R10.9 789.09 POC URINALYSIS DIPSTICK AUTOMATED 2. Urinary tract infection without hematuria, site unspecified N39.0 599.0 URINE CULTURE sulfamethoxazole-trimethoprim (BACTRIM DS) 800-160 mg tablet URINE CULTURE 3. Interstitial lung disease ([facility]) J84.9 515 4. 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 Immunocompromised state D84.9 279.9 Assessment & Plan 1. Urinary Tract Infection. - Urine sample exhibits signs of infection; culture will be sent for further analysis with results expected by tomorrow. - Initiated on Bactrim, a sulfa drug; advised to apply sunscreen due to potential sun sensitivity. - Prescription for Bactrim sent to pharmacy; instructed to take the first dose today. - Advised against increasing potassium intake and to avoid potassium-rich foods such as bananas andpotatoes; instructed to contact us immediately if experiencing heart palpitations or cramps for potential blood draw or antibiotic switch; instructed to inform us promptly if condition worsens or fever develops. 2. Breast Cancer. - Known history of breast cancer; currently undergoing treatment. - Unaware of lung nodules until reading medical records; scheduled appointment with oncologist on Friday. - Advised to discuss lung nodules with oncologist during the appointment. 3. Medication Management. - Taking potassium supplements daily - Also on Eliquis, which has been taken for years. - Informed that Bactrim can cause potassium levels to rise; advised to avoid potassium-rich foods and monitor for symptoms such as heart palpitations or cramps. ALVERTO Gan- This note was automatically generated by a Generative AI technology (iXpert), reviewed, edited, and finalized by ALVERTO Gan. The author of this note, patient (or authorized field sales representative), and all other persons present consent to the audio recording of this visit for charting documentation purposes. documented in this encounter Plan of Treatment Upcoming Encounters Date Type Department Care Team (Late st Contact Info) Description 10/26/2024 11:30 AM CDT Appointment [facility] [place] [address] [place] [address] 01/14/2025 2:00 PM CDT Office Visit [facility] Family Medicine [address] [place] [phone] Joan De Paz FNP [address] [place] [address] [place] [phone] 02/10/2025 11:30 AM CDT Appointment [facility] [address] [facility] [place] [address] Gallito Lance MD [address] [facility] [address] [place] [address] 02/10/2025 1:00 PM CDT Office Visit [facility] [address] [facility] [address] [place] [address] Sarita Oro, CHOIRMASTER [address] [facility] [address] [place] [address] documented as of this encounter Procedures Procedure Name Priority Date/Time Associated Diagnosis Comments URINE CULTURE Routine 10/11/2024 3:56 PM CDT Urinary tract infection without hematuria, site unspecified POC URINALYSIS DIPSTICK AUTOMATED Routine 10/11/2024 3:40 AM CDT Flank pain documented in this encounter Results * URINE CULTURE (10/11/2024 3:56 PM CDT) URINE CULTURE SEE NOTE [facility] Comment: CULTURE, URINE, ROUTINE Micro Number: [id number] Test Status: Final Specimen Source: Urine, clean catch Specimen Quality: Adequate Result: Mixed genital palma isolated. These superficial bacteria are not indicative of a urinary tract infection. No further organism identification is warranted on this specimen. If clinically indicated, recollect clean-catch, mid-stream urine and transfer immediately to Urine Culture Transport Tube. Test Performed at: [facility] [id number] [id number] Dillon Mcfarland MD Urine URINE SPECIMEN OBTAINED BY CLEAN CATCH PROCEDURE / Unknown 10/11/2024 3:56 PM CDT 10/12/2024 3:01 AM CDT Imani Colbert CHOIRMASTER [facility]CRO[facility] [place] Final Result [facility] [phone] [facility] [id number] [place] [id number] * (ABNORMAL) POC URINALYSIS DIPSTICK AUTOMATED (10/11/2024 3:40 AM CDT) COLOR UA POC [place](A) Pale to Dark Yellow [facility] CLARITY UA POC Turbid(A) Clear, Other [place] [facility] GLUCOSE UA POC Trace(A) Negative, Normal [facility] BILIRUBIN UA POC 1+(A) Negative [facility] KETONES UA POC 1+(A) Negative [facility] SPECIFIC GRAVITY UA POC 1.025 1.000 - 1.030 [facility] BLOOD UA POC 1+(A) Negative [facility] LINIC [facility] PH UA POC 5.0 5.0 - 8.0 [facility] IC [facility] PROTEIN UA POC 1+(A) Negative [facility] UROBILINOGEN UA POC 1.0 <2.0 mg/dL [facility] NITRITE UA POC Positive( A) Negative [facility] LEUKOCYTE ESTERASE UA POC Trace(A) Negative [facility] KIT LOT NUMBER POC [phone] [facility] KIT EXP DATE POC 5 [facility] Urine 10/11/2024 3:40 AM CDT Imani Colbert CHOIRMASTER POINT OF CARE TESTING Final Result [facility] CLIA# [id number] [address] [place] [address] documented in this encounter Visit Diagnoses Diagnosis Flank pain- Primary Abdominal pain, unspecified site Urinary tract infection without hematuria, site unspecified Interstitial lung disease (CMS/HCC) 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
[2024-10-15 12:46] VITALS: BP 129/81; PULSE 84; RESP 16; TEMP 36.6; O2SAT 95; BMI 32.3
--- OUTSIDE RECORDS SUMMARY | 2024-10-15 12:57 | XMS_ITS | Encounter Summary ---
Author Organization [facility] Address [address] [place] [address] Care Team Providers Care Associate Professor Of Philosophy Name Role Phone Fabiola Soto MD Primary Care Provider [phone] Encounter Details Date Type Department Care Team (Late st Contact Info) Description 10/03/[address] 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 diff 10/16/2020 10/16/2020 10/16/2020 11:1 0 AM CDT documented as of this encounter Care Teams Associate Professor Of Philosophy Relationship Specialty Start Date End Date Fabiola Soto MD [address] [facility] [address] [place] [address] PCP - General Family Practice 05/27/13 documented as of this encounter
--- OUTSIDE RECORDS SUMMARY | 2024-10-15 12:57 | XMS_ITS | Encounter Summary ---
Author Organization [facility] Address [address] [place] [address] Care Team Providers Care Driller Machine Name Role Phone Fabiola Soto MD Primary Care Provider [phone] Encounter Details Date Type Department Care Team (Late st Contact Info) Description 01/20/2019 Ancillary Orders [facility] [address] [facility] [address] [place] [address] Jorgito Mzea PA NO ADDRESS ON FILE Screening for breast cancer Social History Tobacco Use Types Packs/Day Years Used Date Smoking Tobacco: Never Smokeless Tobacco: Never Alcohol Use Standard Drinks/Week Comments No 0 (1 standard drink = 0.6 oz pur e alcohol) Comments No Sex and Gender Information Value Date Recorded Sex Assigned at Not on file 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 us [facility] ORDER[facility]LES Final Result * MAMMO PRIOR STUDY (10/25/2010 12:00 PM CDT) Narrative 01/20/2019 11:58 AM CDT This exam was auto finalized to allow images to be scanned to PACS. [facility] Final Result documented in this encounter Visit Diagnoses Diagnosis Screening for breast cancer Breast screening, unspecified Screening for breast cancer Breast screening, unspecified Screening for breast cancer Breast screening, unspecified documented in this encounter Additional Health Concerns Infection Onset Date Last Indicated Resolved Time R/O C. diff 10/16/2020 10/16/2020 10/16/2020 11:1 0 AM CDT Assessment Noted Time PHQ-9 Depression Total Score: 1 12/24/19 19 12:00 PM CDT documented as of this encounter Care Teams Driller Machine Relationship Specialty Start Date End Date Fabiola Soto MD [address] [address] PCP - General Family Practice 05/27/13 documented as of this encounter
--- OUTSIDE RECORDS SUMMARY | 2024-10-15 12:57 | XMS_ITS | Encounter Summary ---
Author Organization [facility] Address [address] [place] [address] Care Team Providers Care Production Drilling Machine Operator Name Role Phone Sánchez Macario MD Primary Care Provider [phone] [phone] Encounter Details Date Type Department Care Team (Late st Contact Info) Description 05/17/2021 Digital Self COVID-1 9 Monitoring [place] ABSTRACTION Provider, Abstract NO ADDRESS ON FILE Social History Tobacco Use Types Packs/Day Years [...] often do you attend chur ch or yazidi services? Never 01/05/2020 Do you belong to any clubs o r organizations such as cheondoism groups, unions, fraternal or athletic groups, or [...] housing, medical care, and heating? Somewhat hard 12/13/2020 Food Insecurity Answer Date Recorded In the past 12 months, have you worried that your food would run out before you had money to buy more? Never true 12/13/2020 In the past 12 months, did y ou run out of food and didn't have money to buy more? Never true 12/13/2020 Transportation Needs Answer Date Record ed In the past 12 months, has l ack of transportation kept you from medical appointments or from getting medications? No 11/20 In the past 12 months, has l ack of transportation kept you from meetings, work, or from getting things needed for daily living? No 12/13/2020 Comments No Sex and Gender Information Value Date Recorded Sex Assigned at Not on file Legal Sex Female 9:22 AM IT AUDITOR Gender Identity Not on file Sexual Orientation Not on file COVID-19 Exposure Response Date Recorded In the last month, have you been in contact with someone who was confirmed or suspected to have Coronavirus / COVID-19? Yes 05/18/2021 1:41 PM IT AUDITOR documented as of this encounter Plan of Treatment Upcoming Encounters Date Type Department Care Team (Late st Contact Info) Description 10/26/2024 11:30 AM CDT Appointment [facility] Outpatient Services [place] [address] [place] [phone] 01/14/2025 2:00 PM CDT Office Visit [facility] Family Medicine [place] [address] [place] [phone] Joan De Paz LOG ROPER [address] [place] [phone] 02/10/2025 11:30 AM CDT Appointment [facility] [address] [place] [address] Gallito Lance MD [address] [place] [phone] 02/10/2025 1:00 PM CDT Office Visit [facility] [address] [place] [phone] Sarita Oro, [facility] [address] [place] [phone] documented as of this encounter Visit Diagnoses Not on filedocumented in this encounter Additional Health Concerns Infection Onset Date Last Indicated Resolved Time COVID-19 05/11/2021 05/11/2021 05/31/2021 2:22 AM IT AUDITOR R/O Respiratory 06/07/2021 06/07/2021 06/07/2021 1 0:14 PM IT AUDITOR COVID-19 04/18/2023 04/18/2023 05/08/2023 1:16 AM IT AUDITOR R/O C. diff 09/04/2023 09/04/2023 09/04/2023 11:4 7 PM CDT R/O COVID-19 09/04/2023 09/04/2023 09/04/2023 6:46 PM CDT R/O COVID-19 11/11/2023 11/11/2023 11/11/2023 1:08 PM CDT Assessment Noted Time PHQ-9 Depression Total Score: 1 12/14/19 21 11:24 AM CDT documented as of this encounter Care Teams Production Drilling Machine Operator Relationship Specialty Start Date End Date Sánchez Macario MD [address] [phone] PCP - General Family Practice 04/10/21 documented as of this encounter
--- OUTSIDE RECORDS SUMMARY | 2024-10-15 12:57 | XMS_ITS | Encounter Summary ---
Author Organization [facility] Address [address] [place] [address] Care Team Providers Care Kitchenwhere Maker Name Role Phone Sánchez Macario MD Primary Care Provider [phone] Encounter Details Date Type Department Care Team (Late st Contact Info) Description 05/14/2021 Digital Self COVID-1 9 Monitoring [place] ABSTRACTION [...] often do you attend chur ch or pentecostal services? Never 01/05/2020 Do you belong to any clubs o r organizations such as jew groups, unions, fraternal or athletic groups, or [...] on file Legal Sex Female 9:22 AM CENTRAL SERVICES TECH Gender Identity Not on file Sexual Orientation Not on file COVID-19 Exposure Response Date Recorded In the last month, have you been in contact with someone who was confirmed or suspected to have Coronavirus / COVID-19? No / Unsure 05/11/2021 10:11 AM CENTRAL SERVICES TECH documented as of this encounter Plan of Treatment Upcoming Encounters Date Type Department Care Team (Late st Contact Info) Description 10/26/2024 11:30 AM CDT Appointment [facility] Outpatient Services [place] [address] [place] [phone] 01/14/2025 2:00 PM CDT Office Visit [facility] Family Medicine [place] [address] [place] [address] [place] [phone] Joan De Paz [facility] [address] [place] [phone] 02/10/2025 11:30 AM CDT Appointment [facility] [place] [address] [place] [address] Gallito Lance MD [address] [place] [phone] 02/10/2025 1:00 PM CDT Office Visit [facility] [address] [place] [phone] Sarita Oro, HURRICANE TRACKER [address] [facility] [address] [place] [phone] documented as of this encounter Visit Diagnoses Not on filedocumented in this encounter Additional Health Concerns Infection Onset Date Last Indicated Resolved Time COVID-19 05/11/2021 05/11/2021 05/31/2021 2:22 AM CENTRAL SERVICES TECH R/O Respiratory 06/07/2021 06/07/2021 06/07/2021 1 0:14 PM CENTRAL SERVICES TECH COVID-19 04/18/2023 04/18/2023 05/08/2023 1:16 AM CENTRAL SERVICES TECH R/O C. diff 09/04/2023 09/04/2023 09/04/2023 11:4 7 PM CDT R/O COVID-19 09/04/2023 09/04/2023 09/04/2023 6:46 PM CDT R/O COVID-19 11/11/2023 11/11/2023 11/11/2023 1:08 PM CDT Assessment Noted Time PHQ-9 Depression Total Score: 1 12/14/19 11:24 AM CDT documented as of this encounter Care Teams Kitchenwhere Maker Relationship Specialty Start Date End Date Sánchez Macario MD [address] [phone] PCP - General Family Practice 04/10/21 documented as of this encounter
--- OUTSIDE RECORDS SUMMARY | 2024-10-15 12:57 | XMS_ITS | Encounter Summary ---
Author Organization [facility] Address [address] [place] [address] Care Team Providers Care Parking Lot Chauffeur Name Role Phone Fabiola Soto MD Primary Care Provider [phone] Reason for Referral * Outpatient Services (Routine) - Closed Specialty Diagnoses / Procedures Referred By Cleopatra jimenez Referred To Contact Diagnoses Screening mammogram Procedures MAMMO SCREENING BILAT Philly Darling APRN NO ADDRESS ON FILE Referral ID Status Reason Start Date Expiration Date Visits Re quested Visits Authorized [id number] Closed 10/01/2010 03/30/2011 1 1 Encounter Details Date Type Department Care Team (Late st Contact Info) Description 10/01/2010 Ancillary Orders [facility] Imaging External Read [address] [place] [address] Philly Darling APRN NO ADDRESS ON FILE Screening mammogram Social History Tobacco Use Types Packs/Day Years Used Date Smoking Tobacco: Never Alcohol Use Standard Drinks/Week Comments Yes 4.2 (1 standard drink = 0.6 oz p ure alcohol) month Comments No Sex and Gender Information Value Date Recorded Sex Assigned at Not on file Legal Sex Female 5:07 AM FIRE CHIEF DEPUTY Gender Identity Not on file Sexual Orientation Not on file documented as of this encounter Plan of Treatment Not on file documented as of this encounter Results * MAMMO SCREENING BILAT (10/01/2010 12:50 PM CDT) Anatomical Region Laterality Modality Breast Bilateral Mammography Addenda Addendum by Kurt Granados MD on 10/15/2010 10:15 AM CDT ADDENDUM TO SCREENING MAMMOGRAM OF 09/26/10: Comparison studies are now available from [facility] dated 08/06/06 and 06/27/05. A moderate amount of tissue present, bilaterally. The nodule in the lateral posterior aspect of the right breast probably a low lying lymph node and simply being projected differently. The questionable area of nodularity in the right breast on the CC view centrally not definitely seen on prior studies. A small nodular density seen in the anterior aspect of the retroglandular fat on the left CC view is not definitely seen on the prior studies. The more posterior retroglandular fat entity on the left CC view is stable. The breast tissue is heterogeneous with underlying nodularity. SUMMARY: Areas of nodularity in both breasts which should undergo further evaluation. Since some of this could be compression effect, it would be reasonable to perform bilateral CC, MLO, and lateral views initially with digital imaging. Any further workup could then be undertaken as necessary. *Addendum dictated on 10/05/10 WAI/elvira Impressions 10/03/2010 4:17 PM CDT : Incomplete. Obtain priors. If they do not become available within the next 2-4 weeks, I would recommend the patient return for additional views. VIDA/elvira Narrative 10/03/2010 4:17 PM CDT BILATERAL SCREENING MAMMOGRAM: Bilateral CC and MLO views were obtained. We are in the process of trying to retrieve prior films from [facility]. Those are not available at the time of this reading. There is a moderate degree of parenchymal tissue. There are a number of scattered small well-defined nodules noted, bilaterally. One nodule very lateral in location in the posterior segment approximately at the 8 to 9 o'clock position and a second nodule on the right MLO view at the level of the nipple line centrally specifically deserve comparison with prior films. If the prior films do not become available for comparison, I would recommend that the patient return for bilateral true lateral projections and possible ultrasound on the right. This mammogram was also analyzed by the Computer Aided Detection system (CAD), [employer], Version 3.1. Procedure Note Elizabeth Rosas MD / Kurt Granados MD - 10/15/2010 BILATERAL SCREENING MAMMOGRAM: Bilateral CC and MLO views were obtained. We are in the process of tryingto retrieve prior films from [facility]. Those are not available at thetime of this reading. There is a moderate degree of parenchymal tissue. There are a number ofscattered small well-defined nodules noted, bilaterally. One nodule verylateral in location in the posterior segment approximately at the 8 to 9o'clock position and a second nodule on the right MLO view at the level ofthe nipple line centrally specifically deserve comparison with priorfilms. If the prior films do not become available for comparison, I wouldrecommend that the patient return for bilateral true lateral projectionsand possible ultrasound on the right. This mammogram was also analyzed by the Computer Aided Detection system(CAD), inter[employer] Ribbon[employer], Version 3.1. IMPRESSION: Incomplete. Obtain priors. If they do not become availablewithin the next 2-4 weeks, I would recommend the patient return foradditional views. KG/elvira Philly Darling APRN MAMMO ORDERABLES Edited Result - Final documented in this encounter Visit Diagnoses Diagnosis Screening mammogram Other screening mammogram documented in this encounter Additional Health Concerns Infection Onset Date Last Indicated Resolved Time R/O C. diff 10/16/2020 10/16/2020 10/16/2020 11:1 0 AM CDT documented as of this encounter Care Teams Parking Lot Chauffeur Relationship Specialty Start Date End Date Fabiola Soto MD [address] [phone] PCP - General Family Practice 05/27/13 documented as of this encounter
--- OUTSIDE RECORDS SUMMARY | 2024-10-15 12:57 | XMS_ITS ---
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 10/20/2023 Cancer Staging:Clinical stage from 03/27/2024:Stage IIIB(cT3, cN0, cM0, G3, ER-, MT-, HER2-) - Signed by Vale Palacios DO on 03/27/2024 Pathologic stage from 06/08/2024:Stage IIIA(pT3, pN0(sn), cM0, G3, ER-, MT-, HER2-) - Signed by Cristina Soto MD on 06/08/2024 Pulmonary nodules 10/20/2023 Primary osteoarthritis of left knee 10/20/2023 Iron deficiency anemia 10/20/2023 Immunocompromised state 10/20/2023 RLS (restless legs syndrome) 10/20/2023 Hip pain 10/14/2023 Frail elderly 04/18/2023 Thoracic aortic aneurysm without rupture 022 Dependence on other enabling machines and device s 06/19/2021 Interstitial lung disease 06/19/2021 Axillary mass, right 06/07/2021 Hydronephrosis of right kidney 06/05/2021 Aortic atherosclerosis 02/02/2020 Overview (08/18/2020): ADDED PER PVQ RESPONSE DOS 9.16.2019 Personal history of DVT (deep vein thrombosis) 0 05/02/2017 History of pulmonary embolism 05/02/2017 Familial tremor 04/06/2017 Seasonal affective disorder 12/19/2016 Peripheral edema 08/26/2016 Chronic anticoagulation 06/30/2016 Chronic pulmonary embolism 06/03/2016 Overview (08/17/2020): CHANGED PER PVQ RESPONSE DOS 9.16.2019 Osteoporosis 02/10/2014 Blue nevus of scalp 09/26/2013 Intertriginous candidiasis 09/26/2013 Lumbar pain 12/04/2012 Scoliosis 12/04/2012 Hypothyroidism 09/03/2012 Urinary incontinence 06/15/2012 Chronic deep vein thrombosis (DVT) 03/18/2012 Overview (08/17/2020): CHANGED PER PVQ RESPONSE DOS 9.16.2019 Sciatica 11/29/2011 Hyperlipidemia 10/24/2011 Benign paroxysmal vertigo 03/15/2011 Nevus 12/13/2010 Mononeuritis of unspecified site 06/29/2010 Tendon rupture, Achilles 06/29/2010 Severe aortic stenosis Current Treatment and Therapy Plans No current plan information found. Past Treatment and Therapy Plans No past plan information found. Lifetime Dose Tracking * Chemical Lifetime Dose Automatic Entry Manual Entr y Effective Dose 154.96 mSv 154.96 mSv 0 mSv Total DLP 11,927.38 DLP 11,927.38 DLP 0 DLP CTDIvol Max 313.5 mGy 313.5 mGy 0 mGy CTDIvol Min 248.46 mGy 248.46 mGy 0 mGy Air Kerma 151 mGy 0 mGy 151 mGy Dose Area Product (DAP) 40.3 Gy-cm2 0 Gy-cm2 40.3 Gy-cm2 Resolved Problems Problem Noted Date Diagnosed Date Resolved Date Left lateral ankle pain 10/14/2023 07/0 04/2023 Left anterior knee pain 10/14/2023 07/0 04/2023 Head injury without concussi on or intracranial hemorrhage 10/14/2023 10/20/2023 Fall at home, initial encounter 10/14/2023 10/20/2023 Acute cystitis with hematuria 06/05/2021 10/20/2023 Supratherapeutic INR 06/05/2021 024 Hypercalcemia 06/05/2021 10/20/2023 Right lower quadrant abdominal pain 06/05/2021 10/20/2023 Acute deep vein thrombosis ( DVT) of femoral vein of left lower extremity 06/11/2016 04/10/2021 Severe obesity (BMI 35.0-35. 9 with comorbidity) 04/05/2016 07/06/2024 Benign paroxysmal vertigo 07/21/2012 Encounter for medication monitoring 05/07/2012 02/20/2014 Bursitis right hip 06/29/2010
--- OUTSIDE RECORDS SUMMARY | 2024-10-15 12:57 | XMS_ITS | Encounter Summary ---
Author Organization [facility] Address [address] [place] [address] Care Team Providers Care Hog Cutter Name Role Phone Sánchez Macario MD Primary Care Provider [phone] [phone] Encounter Details Date Type Department Care Team (Late st Contact Info) Description 05/16/2021 Digital Self COVID-1 9 Monitoring STL ABSTRACTION [...] any clubs o r organizations such as tenriism groups, unions, fraternal or athletic groups, or [...] on file Legal Sex Female 9:22 AM COMPOSITION BOARD PRESS OPERATOR Gender Identity Not on file Sexual Orientation Not on file COVID-19 Exposure Response Date Recorded In the last month, have you been in contact with someone who was confirmed or suspected to have Coronavirus / COVID-19? Yes 05/18/2021 1:41 PM COMPOSITION BOARD PRESS OPERATOR documented as of this encounter Plan of Treatment Upcoming Encounters Date Type Department Care Team (Late st Contact Info) Description 10/26/2024 11:30 AM CDT Appointment [facility] Outpatient Services [place] [address] [place] [phone] 01/14/2025 2:00 PM CDT Office Visit [facility] Family Medicine [place] [address] [place] [phone] Joan De Paz CAMERA OPERATOR [address] [place] [phone] 02/10/2025 11:30 AM CDT Appointment [facility] [place] [address] [place] [address] Gallito Lance MD [address] [place] [phone] 02/10/2025 1:00 PM CDT Office Visit [facility] [address] [place] [phone] Sarita Oro, [facility] [address] [place] [phone] documented as of this encounter Visit Diagnoses Not on filedocumented in this encounter Additional Health Concerns Infection Onset Date Last Indicated Resolved Time COVID-19 05/11/2021 05/11/2021 05/31/2021 2:22 AM COMPOSITION BOARD PRESS OPERATOR R/O Respiratory 06/07/2021 06/07/2021 06/07/2021 1 0:14 PM COMPOSITION BOARD PRESS OPERATOR COVID-19 04/18/2023 04/18/2023 05/08/2023 1:16 AM COMPOSITION BOARD PRESS OPERATOR R/O C. diff 09/04/2023 09/04/2023 09/04/2023 11:4 7 PM CDT R/O COVID-19 09/04/2023 09/04/2023 09/04/2023 6:46 PM CDT R/O COVID-19 11/11/2023 11/11/2023 11/11/2023 1:08 PM CDT Assessment Noted Time PHQ-9 Depression Total Score: 1 12/14/19 21 11:24 AM CDT documented as of this encounter Care Teams Hog Cutter Relationship Specialty Start Date End Date Sánchez Macario MD [address] [phone] PCP - General Family Practice 04/10/21 documented as of this encounter
--- OUTSIDE RECORDS SUMMARY | 2024-10-15 12:57 | XMS_ITS | Encounter Summary ---
Author Organization [facility] Address [address] [place] [address] Care Team Providers Care Assembler Type Bar And Segment Name Role Phone Fabiola Soto MD Primary Care Provider +1 [phone] Encounter Details Date Type Department Care Team (Late st Contact Info) Description 09/18/2013 Ancillary Orders [facility] [place] [facility] [place] [address] [place] [address] Social History Tobacco Use Types Packs/Day Years Used Date Smoking Tobacco: Never Smokeless Tobacco: Never Alcohol Use Standard Drinks/Week Comments No 0 (1 standard drink = 0.6 oz pur e alcohol) Comments No Sex and Gender Information Value Date Recorded Sex Assigned at Not on file Legal Sex Female 5:07 AM SUPERVISOR INTELLIGENCE ANALYST Gender Identity Not on file Sexual Orientation Not on file Occupation Industry Job Start Date Job End Date Not on file Not on file Not on file Not on file documented as of this encounter Plan of Treatment Not on file documented as of this encounter Procedures Procedure Name Priority Date/Time Associated Diagnosis Comments CBC WITH DIFFERENTIAL Routine 09/18/2013 12:03 PM CDT ALT Routine 09/18/2013 12:03 PM CDT TSH Routine 09/18/2013 12:03 PM CDT IRON LEVEL Routine 09/18/2013 12:03 PM CDT HEMOGLOBIN A1C Routine 09/18/2013 12:03 PM CDT CREATININE Routine 09/18/2013 12:03 PM CDT LIPID PANEL Routine 09/18/2013 12:03 PM CDT documented in this encounter Results * IRON LEVEL (09/18/2013 12:03 PM CDT) IRON 84 50 - 170 ug/dL 09/18/2013 5:21 PM CDT [facility] [employer] [facility] Blood Collection / Unknown 09/18/2013 12:03 PM CDT 09/18/2013 12:03 PM CDT External Provider Mtnv CHEMISTRY ORDERABLES Jihan l Result Performing Organization Address [facility] Co de Phone Number [facility] [employer] [facility] CLIA # [id number] [address] [place] [address] * CREATININE (09/18/2013 12:03 PM CDT) Pathologist [facility] CREATININE 1.10 0.60 - 1.30 mg/dL 09/18/2013 1:41 PM CDT [facility] [employer] [facility] GFR 49 mL/min/1.7 3 sq meter 09/18/2013 1:41 PM CDT [facility] [employer] [facility] Comment: The GFR result is not clinically significant on patients <18 or >70 years of age. GFR, 59 mL/min/1.7 3 sq meter 09/18/2013 1:41 PM CDT [facility] [employer] [facility] Blood Collection / Unknown 09/18/2013 12:03 PM CDT 09/18/2013 12:03 PM CDT us External Provider Mtnv CHEMISTRY ORDERABLES Jihan l Result Performing Organization Address City/[facility]/ZIP Co de Phone Number [facility] CLIA # [id number] [address] [place] [address] * (ABNORMAL) ALT (09/18/2013 12:03 PM CDT) ALT 20(L) 30 - 65 U/L 09/18/2013 1:41 PM CDT [facility] [employer] [facility] [place] Blood Collection / Unknown 09/18/2013 12:03 PM CDT 09/18/2013 12:03 PM CDT us External Provider Mtnv CHEMISTRY ORDERABLES Jihan priya Result [facility] [place] CLIA # [id number] 100 [facility] [address] [place] [address] * (ABNORMAL) CBC WITH DIFFERENTIAL (09/18/2013 12:03 PM CDT) WBC 5.7 4.0 - 10.0 K/uL 09/18/2013 12:21 PM CDT [facility] [place] RBC 4.44 3.93 - 5.22 M/uL 09/18/2013 12:21 PM CDT [facility] [place] HEMOGLOBIN 13.6 11.2 - 15.7 g/dL 09/18/2013 12:21 PM CDT [facility] [place] HEMATOCRIT 41.5 34.1 - 44.9 % 09/18/2013 12:21 PM CDT [facility] [place] MCV 93.5 79.4 - 94.8 fL 09/18/2013 12:21 PM CDT [facility] [place] MCH 30.6 25.6 - 32.2 pg 09/18/2013 12:21 PM CDT [facility] [place] MCHC 32.8 32.2 - 35.5 g/dL 09/18/2013 12:21 PM CDT [facility] [place] RDW 13.4 11.0 - 14.5 % 09/18/2013 12:21 PM CDT [facility] [place] RDW-STDEV 44.1 36.9 - 56.9 fL 09/18/2013 12:21 PM CDT [facility] [place] PLATELETS 242 163 - 337 K/uL 09/18/2013 12:21 PM CDT [facility] [place] MPV 12.2 10.0 - 14.8 fL 09/18/2013 12:21 PM CDT [facility] [place] NEUTROPHILS 63 34 - 71 % 09/18/2013 12:21 PM CDT [facility] [place] LYMPHOCYTES 21 19 - 52 % 09/18/2013 12:21 PM CDT [facility] [place] MONOCYTES 10 5 - 13 % 09/18/2013 12:21 PM CDT [facility] [place] EOSINOPHILS 4 1 - 6 % 09/18/2013 12:21 PM CDT [facility] [place] BASOPHILS 1 0 - 1 % 09/18/2013 12:21 PM CDT [facility] [place] NEUTROPHIL ABSOLUTE 3.63 1.56 - 6.13 K/uL 09/18/2013 12:21 PM CDT [facility] [place] LYMPHOCYTE ABSOLUTE 1.21 1.20 - 3.40 K/uL 09/18/2013 12:21 PM CDT [facility] [place] MONOCYTE ABSOLUTE 0.59(H) 0.24 - 0.36 K/uL 09/18/2013 12:21 PM CDT [facility] [place] EOSINOPHIL ABSOLUTE 0.22 0.04 - 0.36 K/uL 09/18/2013 12:21 PM CDT [facility] [place] BASOPHILS ABSOLUTE 0.08 0.01 - 0.08 K/uL 09/18/2013 12:21 PM CDT [facility] [place] IMMATURE GRANULOCYTES 0 % 09/18/2013 12:21 PM CDT [facility] [place] IMMATURE GRANULOCYTES ABSOLUTE 0.00 K/uL 09/18/2013 12:21 PM CDT [facility] [place] Blood Collection / Unknown 09/18/2013 12:03 PM CDT 09/18/2013 12:03 PM CDT us External Provider Mtnv HEMATOLOGY ORDERABLES Fin al Result [facility] [place] CLIA # [id number] [address] [place] [address] * (ABNORMAL) TSH (09/18/2013 12:03 PM CDT) TSH 4.94(H) 0.30 - 4.80 uIU/mL 09/18/2013 1:41 PM CDT [facility] [place] Blood Collection / Unknown 09/18/2013 12:03 PM CDT 09/18/2013 12:03 PM CDT us External Provider Mtnv CHEMISTRY ORDERABLES Jihan l Result Performing Organization Address City/[facility]/ZIP Co de Phone Number [facility] [employer] [facility] CLIA # [id number] [address] [place] [address] * HEMOGLOBIN A1C (09/18/2013 12:03 PM CDT) HEMOGLOBIN A1C 5.7 4.5 - 6.2 % 09/18/2013 1:01 PM CDT [facility] [employer] [facility] EST. AVG GLUCOSE, A1C 117 mg/dL 09/18/2013 1:01 PM CDT [facility] [employer] [facility] Blood Collection / Unknown 09/18/2013 12:03 PM CDT 09/18/2013 12:03 PM CDT External Provider [employer] CHEMISTRY ORDERABLES Jihan l Result Performing Organization Address [facility] Co de Phone Number [facility] [employer] [facility] CLIA # [id number] [address] [place] [address] * (ABNORMAL) LIPID PANEL (09/18/2013 12:03 PM CDT) CHOLESTEROL 235(H) 130 - 200 mg/dL 09/18/2013 1:41 PM CDT [facility] TRIGLYCERIDE 121 30 - 200 mg/dL 09/18/2013 1:41 PM CDT [facility] HDL 51 35 - 80 mg/dL 09/18/2013 1:41 PM CDT [facility] [employer] [facility] LDL CALCULATED 160(H) 0 - 100 mg/dL 09/18/2013 1:41 PM CDT [facility] [employer] [facility] Blood Collection / Unknown 09/18/2013 12:03 PM CDT 09/18/2013 12:03 PM CDT Narrative [facility] Narr8 [facility] - 09/18/2013 1:41 PM CDT TOTAL CHOLESTEROL mg/dL Desirable <200 Borderline high 200-239 High >=240 TRIGLYCERIDES mg/dL Normal <150 Borderline high 150-199 High 200-499 Very high >=500 HDL CHOLESTEROL mg/dL Low <40 Normal 40-60 Desirable >60 LDL CHOLESTEROL mg/dL Optimal <100 Low risk 100-129 Borderline high 130-159 High 160-189 Very high >=190 Based on AHA/NCEP Guidelines us External Provider Mtnv CHEMISTRY ORDERABLES Jihan l Result [facility] [place] CLIA # [id number] [address] [address] documented in this encounter Visit Diagnoses Not on filedocumented in this encounter Additional Health Concerns Infection Onset Date Last Indicated Resolved Time R/O C. diff 10/16/2020 10/16/2020 10/16/2020 11:1 0 AM CDT documented as of this encounter Care Teams Assembler Type Bar And Segment Relationship Specialty Start Date End Date Fabiola Soto MD [address] [phone] PCP - General Family Practice 05/27/13 documented as of this encounter
--- OUTSIDE RECORDS SUMMARY | 2024-10-15 12:57 | XMS_ITS | Encounter Summary ---
Author Organization [facility] Address [address] [place] [address] Care Team Providers Care Folding Rules Printing Machine Operator Name Role Phone Sánchez Macario MD Primary Care Provider [phone] [phone] Encounter Details Date Type Department Care Team [...] often do you attend chur ch or jew services? Never 01/05/2020 Do you belong to any clubs o r organizations such as presybeterian groups, unions, fraternal or athletic groups, or [...] on file Legal Sex Female 9:22 AM NETWORK SYSTEMS ADMINISTRATOR Gender Identity Not on file Sexual Orientation Not on file COVID-19 Exposure Response Date Recorded In the last month, have you been in contact with someone who was confirmed or suspected to have Coronavirus / COVID-19? Yes 05/18/2021 1:41 PM NETWORK SYSTEMS ADMINISTRATOR documented as of this encounter Plan of Treatment Upcoming Encounters Date Type Department Care Team (Late st Contact Info) Description 10/26/2024 11:30 AM CDT Appointment [facility] Outpatient Services [place] [address] [place] [phone] 01/14/2025 2:00 PM CDT Office Visit [facility] Family Medicine [place] [address] [place] [phone] Joan De Paz TURF AND GROUNDS SUPERVISOR [address] [place] [phone] 02/10/2025 11:30 AM CDT Appointment [facility] [place] [address] [place] [address] Gallito Lance MD [address] [place] [phone] 02/10/2025 1:00 PM CDT Office Visit [facility] [address] [place] [phone] Sarita Oro, [facility] [address] [place] [phone] documented as of this encounter Visit Diagnoses Not on filedocumented in this encounter Additional Health Concerns Infection Onset Date Last Indicated Resolved Time COVID-19 05/11/2021 05/11/2021 05/31/2021 2:22 AM NETWORK SYSTEMS ADMINISTRATOR R/O Respiratory 06/07/2021 06/07/2021 06/07/2021 1 0:14 PM NETWORK SYSTEMS ADMINISTRATOR COVID-19 04/18/2023 04/18/2023 05/08/2023 1:16 AM NETWORK SYSTEMS ADMINISTRATOR R/O C. diff 09/04/2023 09/04/2023 09/04/2023 11:4 7 PM CDT R/O COVID-19 09/04/2023 09/04/2023 09/04/2023 6:46 PM CDT R/O COVID-19 11/11/2023 11/11/2023 11/11/2023 1:08 PM CDT Assessment Noted Time PHQ-9 Depression Total Score: 1 12/14/19 21 11:24 AM CDT documented as of this encounter Care Teams Folding Rules Printing Machine Operator Relationship Specialty Start Date End Date Sánchez Macario MD [address] [phone] PCP - General Family Practice 04/10/21 documented as of this encounter
--- OUTSIDE RECORDS SUMMARY | 2024-10-15 12:57 | XMS_ITS | Encounter Summary ---
Author Organization [facility] Address [address] [place] [address] Care Team Providers Care Oven Roaster Name Role Phone Sánchez Macario MD Primary Care Provider [phone] Encounter Details Date Type Department Care Team [...] often do you attend chur ch or mormonism services? Never 01/05/2020 Do you belong to any clubs o r organizations such as evangelical groups, unions, fraternal or athletic groups, or [...] on file Legal Sex Female 9:22 AM WIRE PULLER Gender Identity Not on file Sexual Orientation Not on file COVID-19 Exposure Response Date Recorded In the last month, have you been in contact with someone who was confirmed or suspected to have Coronavirus / COVID-19? No / Unsure 05/11/2021 10:11 AM WIRE PULLER documented as of this encounter Plan of Treatment Upcoming Encounters Date Type Department Care Team (Late st Contact Info) Description 10/26/2024 11:30 AM CDT Appointment [facility] Outpatient Services [place] [address] [place] [phone] 01/14/2025 2:00 PM CDT Office Visit [facility] Family Medicine [place] [address] [place] [address] [place] [phone] Jaon De Paz [facility] [address] [place] [phone] 02/10/2025 11:30 AM CDT Appointment [facility] [place] [address] [place] [address] Gallito Lance MD [address] [place] [phone] 02/10/2025 1:00 PM CDT Office Visit [facility] [address] [place] [phone] Sarita Oro, ROLL MACHINE OPERATOR [address] [facility] [address] [place] [phone] documented as of this encounter Visit Diagnoses Not on filedocumented in this encounter Additional Health Concerns Infection Onset Date Last Indicated Resolved Time COVID-19 05/11/2021 05/11/2021 05/31/2021 2:22 AM WIRE PULLER R/O Respiratory 06/07/2021 06/07/2021 06/07/2021 1 0:14 PM WIRE PULLER COVID-19 04/18/2023 04/18/2023 05/08/2023 1:16 AM WIRE PULLER R/O C. diff 09/04/2023 09/04/2023 09/04/2023 11:4 7 PM CDT R/O COVID-19 09/04/2023 09/04/2023 09/04/2023 6:46 PM CDT R/O COVID-19 11/11/2023 11/11/2023 11/11/2023 1:08 PM CDT Assessment Noted Time PHQ-9 Depression Total Score: 1 12/14/19 11:24 AM CDT documented as of this encounter Care Teams Oven Roaster Relationship Specialty Start Date End Date Sánchez Macario MD [address] [phone] PCP - General Family Practice 04/10/21 documented as of this encounter
--- OUTSIDE RECORDS SUMMARY | 2024-10-15 12:57 | XMS_ITS | Encounter Summary ---
Author Organization [facility] Address [address] [place] [address] Care Team Providers Care Proofer Name Role Phone Sánchez Macario MD Primary Care Provider [phone] Encounter Details Date Type Department Care Team [...] often do you attend chur ch or lutheran services? 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 Yes 05/18/2021 1:41 PM PACKING LINE OPERATOR documented as of this encounter Plan of Treatment Upcoming Encounters Date Type Department Care Team (Late st Contact Info) Description 10/26/2024 11:30 AM CDT Appointment [facility] Outpatient Services [place] [address] [place] [phone] 01/14/2025 2:00 PM CDT Office Visit [facility] Family Medicine [place] [address] [place] [phone] Joan De Paz TEST DRIVER [address] [place] [phone] 02/10/2025 11:30 AM CDT Appointment [facility] [address] [place] [address] Gallito Lance MD [address] [place] [phone] 02/10/2025 1:00 PM CDT Office Visit [facility] [address] [place] [phone] Sarita Oro, [facility] [address] [place] [phone] documented as of this encounter Visit Diagnoses Not on filedocumented in this encounter Additional Health Concerns Infection Onset Date Last Indicated Resolved Time COVID-19 05/11/2021 05/11/2021 05/31/2021 2:22 AM PACKING LINE OPERATOR R/O Respiratory 06/07/2021 06/07/2021 06/07/2021 1 0:14 PM PACKING LINE OPERATOR COVID-19 04/18/2023 04/18/2023 05/08/2023 1:16 AM PACKING LINE OPERATOR R/O C. diff 09/04/2023 09/04/2023 09/04/2023 11:4 7 PM CDT R/O COVID-19 09/04/2023 09/04/2023 09/04/2023 6:46 PM CDT R/O COVID-19 11/11/2023 11/11/2023 11/11/2023 1:08 PM CDT Assessment Noted Time PHQ-9 Depression Total Score: 1 12/14/19 21 11:24 AM CDT documented as of this encounter Care Teams Proofer Relationship Specialty Start Date End Date Sánchez Macario MD [address] [phone] PCP - General Family Practice 04/10/21 documented as of this encounter
--- OUTSIDE RECORDS SUMMARY | 2024-10-15 12:57 | XMS_ITS | Clinical Summary ---
Author Organization [facility] Address [address] [place] [address] Care Team Providers Care Signal Inspector Name Role Phone Fabiola Soto MD Primary Care Provider [phone] Allergies Active Allergy Reactions Criticality Noted Date Comments Adhesive Tape-Silicones Itching Low 09/24/2017 Aloe Vera Other (See Comments) 06/29/2010 Chemical burn Aspirin Nausea and Vomiting High 06/29/2010 Allergic to all nsaids, felt like bomb went off in stomach Ciprofloxacin Nausea and Vomiting Low 01/07/2014 Conjugated Estrogens Other (See Comments) 06/29 Allergic to horse serum Egg Rash,Nausea and Vomiting Low 07/04/2010 Erythromycin Nausea and Vomiting Low 06/29/2010 Gabapentin Other (See Comments) 06/29/2010 agitation Hydrocodone Other (See Comments) 06/29/2010 Makes her drunk Hymenoptera Allergenic Extract Swelling High 07/04/2010 Nsaids (Non-Steroidal Anti-Inflammatory Drug) Nausea and Vomiting Low 07/04/2010 Prednisone Hallucination Low 10/24/2011 Simvastatin Itching Low 10/27/2012 Soap Itching Low 01/28/2014 Tetanus Toxoid Other (See Comments) 07/04/2010 Horse serum- swollen basketball size, redness from waist to knee, (injection given in buttocks) Tramadol Nausea and Vomiting Low 06/29/2010 Vitamins-Lipotropics Itching Low 10/27/2012 Medications diphenhydrAMINE (BENADRYL) 25 mg Oral capsule Take 25 mg by mouth every 8 hours as needed. Active acetaminophen (TYLENOL EXTRA STRENGTH) 500 mg Oral tablet Take 1,000 mg by mouth 1 time daily as needed. Active MULTIVITAMIN (MULTIPLE VITAMINS ORAL) Take by mouth daily. Active CYANOCOBALAMIN, VITAMIN B-12, (VITAMIN B-12 ORAL) Take by mouth late in the day. Active MINERAL OIL/PETROLATUM, WHITE (ARTIFICIAL TEARS, RAJNI/MIN, OP)Indications: Medicare annual wellness visit, subsequent by Ophthalmic route. Active cholecalciferol , Vitamin D3, 2,000 unit Tablet Take by mouth daily. Active OTHERIndication s:Acute deep vein thrombosis (DVT) of femoral vein of left lower extremity ([facility]),Posto perative pulmonary embolism, subsequent encounter ([facility]) Bath step for entrance to the bath tub. 1 Each 7 Active RED YEAST RICE ORAL Take by mouth 2 times daily. Active calcium-vitamin D3 (CALTRATE 600+D) 600 mg(1,500mg) -200 unit Tablet Take 1 Tablet by mouth daily. Active OTHER Pharmapure Sugar Sixto 1 tablet po daily Active VENTOLIN HFA 90 mcg/actuation inhaler INHALE 2 PUFFS BY MOUTH EVERY 6 HOURS NEEDED FOR SHORTNESS OF BREATH 54 Gram 2 0 Active tolterodine (DETROL LA) 4 mg Extended Release 24 hour capsule TAKE 1 CAPSULE BY MOUTH DAILY 90 Capsule 1 1 Active FLUoxetine (PROzac) 20 mg capsuleIndicati ons:Seasonal affective disorder TAKE 1 CAPSULE(20 MG) BY MOUTH DAILY 90 Capsule 1 1 Active levothyroxine 100 mcg tablet TAKE 1 TABLET BY MOUTH EVERY MORNING 90 Tablet 1 1 Active potassium chloride (KLOR-CON) 10 mEq Extended Release tabletIndicatio ns:Peripheral edema TAKE 1 TABLET(10 MEQ) BY MOUTH DAILY WITH BREAKFAST 90 Tablet 1 1 Active warfarin (COUMADIN) 5 mg tablet Take 1 tablet twice daily as directed 180 Tablet 1 1 Active Additional Information Patient taking differently: ONE TIME ONLY, Take 1 tablet twice daily as directed,Indications: 1.5 tabs m,w,f, 2 tabs tu, th, sa, agee, Reported on 10/12/2020 meclizine (ANTIVERT) 25 mg tablet TAKE 1 TABLET BY MOUTH THREE TIMES DAILY NEEDED FOR DIZZINESS 90 Tablet 1 1 Active furosemide (LASIX) 40 mg tabletIndicatio ns:Peripheral edema,Shortness of breath Take 1/2 to 1 tablet daily 90 Tablet 1 Active cefdinir (OMNICEF) 300 mg capsule Take 1 Capsule (300 mg) by mouth every 12 hours. 10 Capsule 1 Active Hospital, Clinic, or Other Facility Administered Medication Ordered Dose Route Frequency Start Date End Date Status denosumab (PROLIA) 60 mg/mL injectable syringe 60 mgIndications:Age-rel ated osteoporosis without current pathological fracture 60 mg subCUT EVERY TWENTY-SIX WEEKS 04/15/2018 Active Active Problems Problem Noted Date Diagnosed Date Aortic atherosclerosis 02/02/2020 Overview (02/02/2020): ADDED PER PVQ RESPONSE DOS 01.05.2020 Personal history of DVT (deep vein thrombosis) 0 05/02/2017 History of pulmonary embolism 05/02/2017 Familial tremor 04/06/2017 Seasonal affective disorder 12/19/2016 Peripheral edema 08/26/2016 Chronic anticoagulation 06/30/2016 Acute deep vein thrombosis ( DVT) of femoral vein of left lower extremity 06/11/2016 Chronic pulmonary embolism 06/03/2016 Overview (02/02/2020): CHANGED PER PVQ RESPONSE DOS 01.05.2020 Morbid obesity with BMI of 40.0-44.9, adult 03/21 Osteoporosis 02/10/2014 Blue nevus of scalp 09/26/2013 Intertriginous candidiasis 09/26/2013 Lumbar pain 12/04/2012 Scoliosis 12/04/2012 Hypothyroidism 09/03/2012 Urinary incontinence 06/15/2012 Chronic deep vein thrombosis (DVT) 03/18/2012 Overview (02/02/2020): CHANGED PER PVQ RESPONSE DOS 01.05.2020 Sciatica 11/29/2011 Hyperlipidemia 10/24/2011 Benign paroxysmal vertigo 03/15/2011 Nevus 12/13/2010 Mononeuritis of unspecified site 06/29/2010 Bursitis right hip 06/29/2010 Tendon rupture, Achilles 06/29/2010 Resolved Problems Problem Noted Date Diagnosed Date Resolved Date Benign paroxysmal vertigo 07/21/2012 Encounter for medication monitoring 05/07/2012 02/20/2014 Immunizations Immunization Administration Dates Next Due (SHINGRIX)(50 YRS UP) ZOSTER VACCINE RECOMBINANT, 0.5 ML, IM 12/18/2018 Influenza Seasonal Unspecified Formulation IM PNEUMOVAX (PPSV23) pneumococ lea polysaccharide 23-valent Vaccine 09/07/2005 PREVNAR (PCV13) pneumococcal 13-valent conjugate Vaccine 09/05/2014 Family History Medical History Relation Name Comments Other Brother ELEVATED PSA Heart Disease Father Unknown Maternal Grandfather Unknown Maternal Grandmother Arthritis-osteo Mother Breast Cancer Mother Breast Cancer Other 1 MAT G AUNT Breast Cancer Other 2 MA AUNT Other Paternal Grandfather killed in accident Diabetes Paternal Grandmother Colon Cancer Neg Hx Ovarian Cancer Neg Hx Relation Name Status Comments Brother Alive Daughter 1 Alive Daughter 2 Alive Father Maternal Grandfather Maternal Grandmother Mother Other 1 MAT G AUNT Other 2 MA AUNT Paternal Grandfather Paternal Grandmother Sister NONE Social History Tobacco Use Types Packs/Day Years [...] often do you attend chur ch or shinto services? Never 01/05/2020 Do you belong to any clubs o r organizations such as mormonism groups, unions, fraternal or athletic groups, or [...] like food, housing, medical care, and heating? Hard 01/05/2020 Food Insecurity Answer Date Recorded Within the past 12 months, y ou worried that your food would run out before you got the money to buy more. Never true 01/05/20 20 Within the past 12 months, t he food you bought just didn't last and you didn't have money to get more. Never true 01/05/2020 Transportation Needs Answer Date Record ed In the past 12 months, has l ack of transportation kept you from medical appointments or from getting medications? No 12/20 In the past 12 months, has l ack of transportation kept you from meetings, work, or from getting things needed for daily living? No 01/05/2020 Education Answer Date Recorded What is the highest level of school you have completed or the highest degree you have received? 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 Gender Identity Not on file Sexual Orientation Not on file Occupation Industry Job Start Date Job End Date Not on file Not on file Not on file Not on file Last Filed Vital Signs Vital Sign Reading Time Taken Comments Blood Pressure 122/58 10/16/2020 11:22 AM CDT Pulse 71 10/16/2020 9:52 AM CDT Temperature 36.1 C (97 F) 10/16/2020 8:17 AM CDT Respiratory Rate 18 10/16/2020 11:22 AM CDT Oxygen Saturation 96% 10/16/2020 11:22 AM CDT Inhaled Oxygen Concentration - - Weight 112.9 kg (249 lb) 10/16/2020 8:17 AM CDT Height 162.6 cm (5' 4 ) 10/16/2020 8:17 AM CDT Body Mass Index 42.74 10/16/2020 8:17 AM CDT Plan of Treatment Health Maintenance Due Date Last Done Comments DTAP/TDAP/TD VACCINES (1 - Tdap) 07[birth year]09/1959 RSV VACCINE (60+ or ) (1 - 1-dose 75+ series) 07/09/2015 INFLUENZA VACCINE (#1) 2023 0, 03/11/2019, 06/03/2016 Medicare [place] ([place]) Preventative Visit/Annual Wellness Visit 04/21/2024 01/05/2020, 12/23/2018, 10/03/2017, Additional history exists OSTEOPOROSIS SCREENING 11/09/2028 4, 01/06/2019, 02/03/2014, Additional history exists PNEUMOCOCCAL VACCINE 50+ YEARS Completed 09/05/2014 , 09/07/2005 ZOSTER VACCINE Completed 12/18/2018, 08/03/2018 Procedures Procedure Name Priority Date/Time Associated Diagnosis Comments XR DEXA BONE DENSITY AXIAL 1 OR MORE SITES Routine 01/06/2019 1:43 PM CDT Osteoporosis, unspecified osteoporosis type, unspecified pathological fracture presence from Last 3 Months or Most Recently Relevant to Health Maintenance Results * XR DEXA BONE DENSITY AXIAL 1 OR MORE SITES (01/06/2019 1:43 PM CDT) Anatomical Region Laterality Modality Digital Radiogra phy 01/06/2019 1:43 PM CDT Impressions 01/06/2019 9:42 PM CDT IMPRESSION: 1. Compared to previous exam, there has been statistically significant increase in bone mineral density with findings consistent with osteoporosis; there is currently high risk for fracture with site of lowest density at the femoral neck. 2. Age matched Z-score of greater than -2.0 does not indicate accelerated bone demineralization. Definitions: T-score > -0.99 = Normal T-score -1.00 to -1.49 = mild osteopenia T-score -1.50 to -1.99 = moderate osteopenia T-score -2.00 to -2.49 = severe osteopenia T-score < -2.50 = osteoporosis N.B. Changes in density of <=0.05 g/cm2 are not statistically significant. RECOMMENDATIONS: Normal: Low risk for fracture - f/u in 2 years Mild/Mod osteopenia: Moderate risk for fracture - f/u in 1 year Severe osteopenia: Moderate/high risk for fracture - f/u in 1 year Osteoporosis: High risk for fracture - f/u in 1 year NOF guidelines recommend consideration of FDA-approved medical therapies in patients with FRAX determined 10-year probabilities of hip/major osteoporosis-related fractures equal or greater than 3%/20% respectively. Consider assessing fracture risk using the FRAX analysis tool for guidance of clinical management available online at www.shef.ac.uk/FRAX/. Enter Loop Trolley for Select DXA and the Femoral Neck BMD value. Narrative 01/06/2019 9:42 PM CDT Exam: XR DEXA BONE DENSITY AXIAL 1 OR MORE SITES Reason For Exam: See Diagnosis, osteoporosis screening. Diagnosis: Osteoporosis, unspecified osteoporosis type, unspecified pathological fracture presence Findings: The following absorptiometry data were obtained. The quality of this examination is acceptable with regards to count density, processed images, data display and lack of important artifacts (including but not limited to motion and attenuation artifacts). COMPARISON: 02/02/2014 L1-L4 BMD (g/cm2): 0.890 (Previously 0.917) Adult T-score: -1.4 (Previously -1.2) Adult Z-score: Normal (Previously Normal) Left Femoral Neck BMD (g/cm2): 0.587 (Previously 0.531) Adult T-score: -2.4 (Previously -2.9) Adult Z-score: Normal (Previously Normal) Left Total Hip BMD (g/cm2): 0.708 (Previously 0.780) Adult T-score: -1.9 (Previously -1.3) Adult Z-score: Normal (Previously Normal) Procedure Note Elbert Dhillon MD - 01/06/2019 Exam: XR DEXA BONE DENSITY AXIAL 1 OR MORE SITES Reason For Exam: See Diagnosis, osteoporosis screening. Diagnosis: Osteoporosis, unspecified osteoporosis type, unspecified pathological fracture presence Findings: The following absorptiometry data were obtained. The quality of this examination is acceptable with regards to count density, processed images, data display and lack of important artifacts (including but not limited to motion and attenuation artifacts). COMPARISON: 02/02/2014 L1-L4 BMD (g/cm2): 0.890 (Previously 0.917) Adult T-score: -1.4 (Previously -1.2) Adult Z-score: Normal (Previously Normal) Left Femoral Neck BMD (g/cm2): 0.587 (Previously 0.531) Adult T-score: -2.4 (Previously -2.9) Adult Z-score: Normal (Previously Normal) Left Total Hip BMD (g/cm2): 0.708 (Previously 0.780) Adult T-score: -1.9 (Previously -1.3) Adult Z-score: Normal (Previously Normal) IMPRESSION: 1. Compared to previous exam, there has been statistically significant increase in bone mineral density with findings consistent with osteoporosis; there is currently high risk for fracture with site of lowest density at the femoral neck. 2. Age matched Z-score of greater than -2.0 does not indicate accelerated bone demineralization. Definitions: T-score > -0.99 = Normal T-score -1.00 to -1.49 = mild osteopenia T-score -1.50 to -1.99 = moderate osteopenia T-score -2.00 to -2.49 = severe osteopenia T-score < -2.50 = osteoporosis N.B. Changes in density of <=0.05 g/cm2 are not statistically significant. RECOMMENDATIONS: Normal: Low risk for fracture - f/u in 2 years Mild/Mod osteopenia: Moderate risk for fracture - f/u in 1 year Severe osteopenia: Moderate/high risk for fracture - f/u in 1 year Osteoporosis: High risk for fracture - f/u in 1 year NOF guidelines recommend consideration of FDA-approved medical therapies in patients with FRAX determined 10-year probabilities of hip/major osteoporosis-related fractures equal or greater than 3%/20% respectively. Consider assessing fracture risk using the FRAX analysis tool for guidance of clinical management available online at www.shef.ac.uk/FRAX/. Enter Loop Trolley for Select DXA and the Femoral Neck BMD value. 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
--- OUTSIDE RECORDS SUMMARY | 2024-10-15 12:57 | XMS_ITS | Clinical Summary ---
Author Organization [facility] Address [address] [place] [address] [address] [place] [address] Care Team Providers Care Emery Wheel Molder Name Role Phone Sánchez Macario MD Primary Care Provider [phone] Allergies Active Allergy Reactions Criticality Noted Date Comments Adhesive Unknown 08/06/2023 Adhesive Tape-Silicones Itching Low 09/24/2017 Aloe Vera Other (See Comments) 06/29/2010 Chemical burn Aspirin Nausea and Vomiting High 06/29/2010 Allergic to all nsaids, felt like bomb went off in stomach Ciprofloxacin Nausea and Vomiting Low 01/07/2014 Conjugated Estrogens Other (See Comments) 06/29 Allergic to horse serum Egg Rash,Nausea and Vomiting Low 07/04/2010 Erythromycin Nausea and Vomiting Low 06/29/2010 Fish Containing Products Nausea and Vomiting,Fever Low 06/05/2021 Gabapentin Other (See Comments) 06/29/2010 agitation Hydrocodone Other (See Comments) 06/29/2010 Makes her drunk Hymenoptera Allergenic Extract Swelling High 07/04/2010 Influenza Virus Vaccines Unknown 08/06/2023 Nsaids (Non-Steroidal Anti-Inflammatory Drug) Nausea and Vomiting Low 07/04/2010 Prednisone Hallucination Low 10/24/2011 Simvastatin Itching Low 10/27/2012 Soap Itching Low 01/28/2014 Tetanus Toxoid Other (See Comments) 07/04/2010 Horse serum- swollen basketball size, redness from waist to knee, (injection given in buttocks) Vitamins-Lipotropics Itching Low 10/27/2012 Medications RED YEAST RICE ORAL Take by mouth 2 times daily. 019 Active albuterol sulfate (VENTOLIN HFA) 90 mcg/Actuation inhaler INHALE 2 PUFFS BY MOUTH EVERY 6 HOURS NEEDED FOR SHORTNESS OF BREATH 54 Gram 2 Active OTHER Pharmapure Sugar Sixto 1 tablet po daily Active cyanocobalamin 1,000 mcg Tablet Take by mouth late in the day. Active polyvinyl alcohol (ARTIFICIAL TEARS OP) by Ophthalmic route. Active Multivitamin Capsule Take by mouth daily. Active acetaminophen (TYLENOL) 500 mg tablet Take 1,000 mg by mouth 1 time daily as needed. Active diphenhydrAMINE (BENADRYL) 25 mg capsule Take 25 mg by mouth every 8 hours as needed. Active denosumab (PROLIA) 60 mg/mL Syringe Inject 60 mg by subcutaneous injection Every twentysix weeks. Active polycarbophil calcium (FIBERCON) 625 mg tablet Take 625 mg by mouth daily. Active docusate sodium (STOOL SOFTENER ORAL) Take 100 mg by mouth daily. Takes 2 in the morning Active Cranberry 400 mg Capsule Take 400 mg by mouth daily. Active OTHERIndications: Acute deep vein thrombosis (DVT) of femoral vein of left lower extremity ([facility]),Postope rative pulmonary embolism, subsequent encounter ([facility]) Bath step for entrance to the bath tub. 1 Each 0 Active cholecalciferol, Vitamin D3, (VITAMIN D3) 25 mcg (1,000 unit) Capsule daily. Active calcium as carbonate (Calcium 600) 1,500 mg (600 mg elemental) Tablet 1 tablet BEDTIME (route: oral) Active vitamin E 400 unit capsule Take 400 Units by mouth daily. Active cholecalciferol, Vitamin D3, 50 mcg (2,000 unit) Tablet Take by mouth daily. Active lidocaine-priloca ine (EMLA) 2.5-2.5 % Cream APPLY A QUARTER SIZE TO PORT SITE 30-45 MINUTES PRIOR TO APPOINTMENT. COVER WITH CELLOPHANE Active LORazepam (ATIVAN) 0.5 mg tabletIndications :CARMEL (generalized anxiety disorder) Take 1 Tablet (0.5 mg) by mouth 1 time daily as needed for Anxiety. 30 Tablet 5 Active budesonide (PULMICORT RESPULE) 0.5 mg/2 mL Suspension for Nebulization Take 2 mL (0.5 mg) by inhalation 2 times daily. 60 mL 11 024 Active fluticasone propion-salmetero L (ADVAIR DISKUS,WIXELA INHUB) 250-50 mcg/dose disk inhaler Take 1 Puff by inhalation 2 times daily. Active tolterodine (DETROL LA) 4 mg Extended Release 24 hour capsule TAKE 1 CAPSULE BY MOUTH AT BEDTIME 100 Capsule 2 025 Active rOPINIRole (REQUIP) 0.25 mg tabletIndications :RLS (restless legs syndrome) TAKE 1 TABLET(0.25 MG) BY MOUTH DAILY AT BEDTIME 100 Tablet 1 025 Active traMADoL (ULTRAM) 50 mg tabletIndications :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 (CMS/HCC) Take 1 Tablet (50 mg) by mouth every 6 hours as needed for Pain. 10 Tablet 06/04/19 25 2:49 PM BULLION WEIGHER 025 Active ondansetron (ZOFRAN ODT) 4 mg Tablet, Rapid Dissolve Take 1 Tablet (4 mg) by mouth every 8 hours as needed for Nausea/Emesis. Dissolve tablet on top of tongue, then swallow with saliva. 10 Tablet 1 06/04/19 25 2:49 PM BULLION WEIGHER 025 Active levothyroxine 137 mcg tabletIndications :Acquired hypothyroidism TAKE 1 TABLET(137 MCG) BY MOUTH DAILY 100 Tablet 2 025 Active apixaban (Eliquis) 5 mg tablet TAKE 1 TABLET(5 MG) BY MOUTH TWICE DAILY 200 Tablet 2 025 Active tiZANidine (ZANAFLEX) 2 mg TabletIndications :Primary osteoarthritis of left knee Take 1 Tablet (2 mg) by mouth every 8 hours as needed for Spasm or Pain. 90 Tablet 1 025 Active potassium CHLORIDE (KLOR-CON) 10 mEq Extended Release tabletIndications :Peripheral edema TAKE 1 TABLET(10 MEQ) BY MOUTH DAILY WITH BREAKFAST 90 Tablet 3 025 Active FLUoxetine (PROzac) 40 mg capsuleIndication s:Seasonal affective disorder TAKE 1 CAPSULE(40 MG) BY MOUTH DAILY 100 Capsule 1 025 Active meclizine (ANTIVERT) 25 mg tablet TAKE 1 TABLET(25 MG) BY MOUTH THREE TIMES DAILY NEEDED FOR DIZZINESS 90 Tablet 2 025 Active hydrocortisone (CORTEF) 20 mg tablet Take 1 (20 mg) tablet in the AM and 1/2 (10mg) tablet in the evening. 150 Tablet 025 Active sulfamethoxazole- trimethoprim (BACTRIM DS) 800-160 mg tabletIndications :Urinary tract infection without hematuria, site unspecified Take 1 Tablet by mouth 2 times daily for 7 days. 14 Tablet 025 2024 Active meclizine (ANTIVERT) 25 mg tablet TAKE 1 TABLET(25 MG) BY MOUTH THREE TIMES DAILY NEEDED FOR DIZZINESS 90 Tablet 2 024 2024 Discontinued hydrocortisone (CORTEF) 20 mg tablet Take 1 (20 mg) tablet in the AM and 1/2 (10mg) tablet in the evening. 150 Tablet 025 2024 Discontinued(R eorder) Active Problems Problem Noted Date Diagnosed Date [...] from 03/27/2024:Stage IIIB(cT3, cN0, cM0, G3, ER-, NC-, HER2-) - Signed by Vale Palacios DO on 03/27/2024 Pathologic stage from 06/08/2024:Stage IIIA(pT3, pN0(sn), cM0, G3, ER-, NC-, HER2-) - Signed by Cristina Soto MD [...] Tendon rupture, Achilles 06/29/2010 Severe aortic stenosis Resolved Problems Problem Noted Date Diagnosed Date [...] monitoring 05/07/2012 02/20/2014 Bursitis right hip 06/29/2010 Encounters Date Type Department Care Team Description 10/13/2024 Results Follow-Up [address] [address] Imani Colbert FNP POC URINALYSIS DIPSTICK AUTOMATED, URINE CULTURE 10/12/2024 External Device Data ST[facility] ABSTRACTION Provider, Abstract 10/11/2024 4:00 PM CDT Office Visit [address] [address] Imani Colbert FNP Flank pain (Primary Dx); Urinary tract infection without hematuria, site unspecified; Interstitial lung disease (CMS/HCC); 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 (CMS/HCC); Immunocompromised state 10/11/[address] [address] Sánchez Macario MD Clinical Consult Before Scheduling 10/04/[address] [address] Sánchez Macario MD 09/28/[address] [address] Sánchez Macario MD 09/14/2024 External Device Data ST[facility] ABSTRACTION Provider, Abstract 08/17/[address] [address] Sánchez Macario MD Seasonal affective disorder 08/17/[address] [address] Joan De Paz FNP Peripheral edema 08/17/[address] [address] Joan De Paz FNP Peripheral edema 08/10/2024 External Device Data [facility] ABSTRACTION Provider, Abstract 08/05/[address] [address] Sánchez Macario MD Primary osteoarthritis of left knee from Last 3 Months Immunizations Immunization Administration Dates Next Due (PREVNAR 20)(6 WKS UP) PNEUM OCOCCAL CONJUGATE VACCINE 20-VALENT (PCV20), POLYSACCHARIDE [id number] CONJUGATE, ADJUVANT 0.5 ML (PF) IM 07/06/2024 (SHINGRIX)(50 YRS UP) ZOSTER VACCINE RECOMBINANT, 0.5 ML, IM 12/18/2018 Influenza Seasonal Unspecified Formulation IM PNEUMOVAX (PPSV23) pneumococ lea polysaccharide 23-valent Vaccine 09/07/2005 PREVNAR (PCV13) pneumococcal 13-valent conjugate Vaccine 09/05/2014 Zoster Vaccine Live SQ 12/18/2018 Family History Medical History Relation Name Comments Other Brother ELEVATED PSA Heart Disease Father Unknown Maternal Grandfather Unknown Maternal Grandmother Arthritis-osteo Mother Breast Cancer Mother Breast Cancer Other 1 MA AUNT Breast Cancer Other 2 MAT G AUNT Other Paternal Grandfather killed in accident Diabetes Paternal Grandmother Colon Cancer Neg Hx Ovarian Cancer Neg Hx Relation Name Status Comments Brother Alive Daughter 1 Alive Daughter 2 Alive Father Maternal Grandfather Maternal Grandmother Mother Other 1 MA AUNT Other 2 MAT G AUNT Paternal Grandfather Paternal Grandmother Sister NONE [...] week 01/05/2020 How often do you attend [facility] or rastafarian services? Never 01/05/2020 Do you belong to any clubs o r organizations such as methodist groups, unions, fraternal or athletic groups, or [...] Master's degree (e.g., MA, MS, Omid, MEd, MILD DISABILITIES TEACHER, TYSHAWN) 06/05/2021 Comments No Sex and Gender Information Value Date Recorded Sex Assigned at Not on file Legal Sex Female 9:22 AM BULLION WEIGHER Gender Identity Not on file Sexual Orientation Not on file Last Filed Vital Signs [...] Mass Index 32.93 10/11/2024 3:36 PM CDT Plan of Treatment Upcoming Encounters Date Type Department Care Team (Late st Contact Info) Description 10/26/2024 11:30 AM CDT Appointment [facility] [place] [address] [place] [address] 01/14/2025 2:00 PM CDT Office Visit [facility] [place] [address] [place] [address] [place] [address] Joan De Paz [facility] [address] [place] [address] [place] [address] 02/10/2025 11:30 AM CDT Appointment [facility] [address] [place] [address] Gallito Lance MD [address] [facility] [address] [place] [address] 02/10/2025 1:00 PM CDT Office Visit [facility] [address] [facility] [address] [place] [phone] Sarita Oro, [facility] [address] [facility] [address] [place] [address] Health Maintenance Due Date Last Done Comments DTAP/TDAP/TD VACCINES (1 - Tdap) 07/09/1959 RSV VACCINE (60+ or ) (1 - 1-dose 75+ series) 07/09/2015 ZOSTER VACCINE (2 of 2) 02/12/2019 12/18/2018, 12/18 Medicare Advantage ([place]) Preventative Visit/Annual Wellness Visit 04/21/2024 02/04/2024, 09/30/2022, 09/25/2021, Additional history exists OSTEOPOROSIS SCREENING 11/09/2028 , 01/06/2019, 01/06/2019, Additional history exists Colorectal Cancer Screening Discontinued FIT-DNA Q 3 years Discontinued 12/26/2020 INFLUENZA VACCINE Completed 02/04/2024, , 08/13/2023, Additional history exists PNEUMOCOCCAL VACCINE 50+ YEARS Completed 0 07/06/2024, 09/05/2014, 09/07/2005 COLORECTAL SCREENING Discontinued FIT/FOBT Q 1 year Discontinued Flex Sig/CT Colonography Q 5 years Discontinued Medical Devices Implanted Type Area Waxing Machine Operator Device Identifier Shelf Expiration Date Model / Serial / Lot Clip Ligating Horizon Red 252672 - Csc - [id number] Implanted:Qty: 1 on 06/03/2024 by Vale Palacios DO at [facility] Clip Left: Breast [employer] [id number] 02/04/2029 / / [id number] Clip Ligating Horizon Med Ti 069091 - Csc - [id number] Implanted:Qty: 1 on 06/03/2024 by Vale Palacios DO at [facility] Clip Left: Breast TELEFLEX- WECK CLOSURE SYS [id number] 02/04/2029 [id number] / / [id number] Clip Ligating Horizon Sm 275389 - [id number] Implanted:Qty: 1 on 06/03/2024 by Vale Palacios DO at [facility] Clip Left: Breast TELE[employer]LEX INC [id number] 12/30/2026 / / [id number] Clip Ligating Horizon Med Ti 025998 - [facility] - [id number] Implanted:Qty: 1 on 06/03/2024 by Vale Palacios DO at [facility] Clip Left: Breast TELEFLEX- WECK CLOSURE SYS [id number] 11/23/2028 [id number] / / [id number] Clip Ligating Horizon Med Ti 679667 - Csc - [id number] Implanted:Qty: 1 on 06/03/2024 by Vale Palacios DO at [facility] Clip Left: Breast TELEFLEX- WECK CLOSURE SYS [id number] 01/06/2029 [id number] / / [id number] Closure Perclose Prostyle Sut Mediate 09052-76 - [id number] Implanted:Qty: 1 on 02/17/2024 by Gallito Lance MD at [facility] Closure Device Right: Groin FLYNN- VASC DEVICE [id number] 11/18/2025 62204-98 / / [id number] Closure Perclose Prostyle Sut Mediate 05612-92 - [id number] Implanted:Qty: 1 on 02/17/2024 by Gallito Lance MD at [facility] Closure Device Right: Groin FLYNN- VASC DEVICE [id number] 11/18/2025 76135-27 / / [id number] Closure Perclose Prostyle Sut Mediate 49185-46 - [id number] Implanted:Qty: 1 on 02/17/2024 by Gallito Lance MD at [facility] Closure Device Right: Groin FLYNN- VASC DEVICE [id number] 11/18/2025 57014-81 / / [id number] Dev Closure Angioseal 6fr Vip 610539 - [id number] Implanted:Qty: 1 on 02/17/2024 by Gallito Lance MD at [facility] Closure Device Left: Groin TERUMO- CARDIOVASC SYS 09/24/2024 [id number] / / [id number] Vlv Aort Evolut Fx Tavr 26mm Evolutfx-26 - [id number] Implanted:Qty: 1 on 02/17/2024 by Gallito Lance MD at [facility] Valve Left: Heart MEDTRONIC- HEART VALVE [id number] 07/06/2025 EVOLUTFX -26 / [id number] / Procedures Procedure Name Priority Date/Time Associated Diagnosis Comments URINE CULTURE Routine 10/11/2024 3:56 PM CDT Urinary tract infection without hematuria, site unspecified POC URINALYSIS DIPSTICK AUTOMATED Routine 10/11/2024 3:40 AM CDT Flank pain XR DEXA BONE DENSITY AXIAL 1 OR MORE SITES Routine 11/10/2023 11:10 AM CDT Osteoporosis, unspecified osteoporosis type, unspecified pathological fracture presence COLON CANCER SCREEN, STOOL DNA Routine 12/26/2020 2:45 PM CDT Screening for colon cancer from Last 3 Months or Most Recently Relevant to Health Maintenance Results * URINE CULTURE (10/11/2024 3:56 PM CDT) URINE CULTURE SEE NOTE [employer] Comment: CULTURE, URINE, ROUTINE Micro Number: [id number] Test Status: Final Specimen Source: Urine, clean catch Specimen Quality: Adequate Result: Mixed genital palma isolated. These superficial bacteria are not indicative of a urinary tract infection. No further organism identification is warranted on this specimen. If clinically indicated, recollect clean-catch, mid-stream urine and transfer immediately to Urine Culture Transport Tube. Test Performed at: [facility] [address] [place] [address] Dillon Mcfarland MD Urine URINE SPECIMEN OBTAINED BY CLEAN CATCH PROCEDURE / Unknown 10/11/2024 3:56 PM CDT 10/12/2024 3:01 AM CDT Imani Colbert [facility] MICROBIOLOGY - GENERAL ORDElayne SINHA Final Result [facility] [phone] [facility] [address] [place] [address] * (ABNORMAL) POC URINALYSIS DIPSTICK AUTOMATED (10/11/2024 3:40 AM CDT) COLOR UA POC [place](A) Pale to Dark Yellow [facility] CLARITY UA POC Turbid(A) Clear, Other [facility] GLUCOSE UA POC Trace(A) Negative, Normal [facility] BILIRUBIN UA POC 1+(A) Negative [facility] UA POC 1+(A) Negative [facility] SPECIFIC GRAVITY UA POC 1.025 1.000 - 1.030 [facility] BLOOD UA POC 1+(A) Negative [facility] PH UA POC 5.0 5.0 - 8.0 [facility] IC [facility] PROTEIN UA POC 1+(A) Negative [facility] UROBILINOGEN UA POC 1.0 <2.0 mg/dL [facility] NITRITE UA POC Positive( A) Negative [facility] LEUKOCYTE ESTERASE UA POC Trace(A) Negative [facility] KIT LOT NUMBER POC [id number] [facility] KIT EXP DATE POC [facility] Urine 10/11/2024 3:40 AM CDT Imani Colbert SAP BW CONSULTANT POINT OF CARE TESTING Final Result [facility] CLIA# [id number] [address] [place] [address] * (ABNORMAL) XR DEXA BONE DENSITY AXIAL 1 OR MORE SITES (11/10/2023 11:10 AM CDT) T-SCORE HIP (LEFT) -1.30(A) -1.0 - 1.0 INTERFACE SYSTEM T-SCORE SPINE -0.40 -1.0 - 1.0 INTER FACE SYSTEM Anatomical Region Laterality Modality Digital Radiogra phy, Mammography 11/10/2023 11:1 1 AM CDT Impressions 11/10/2023 11:52 AM CDT IMPRESSION: Bone mineral density values fall within the osteoporotic range as above. NOF guidelines recommend consideration of FDA-approved medical therapies in patients with FRAX determined 10-year probabilities of hip/major osteoporosis-related fractures equal or greater than 3%/20% respectively. Consider assessing fracture risk using the FRAX analysis tool for guidance of clinical management available online at www.shef.ac.uk/FRAX/. Enter Chu Shu for Select DXA and the Femoral Neck BMD value. Narrative 11/10/2023 11:52 AM CDT DEXA Evaluation of the Lumbar Spine and Left Proximal Femur Reason For Exam: See Diagnosis. Evaluation of bone mineral density. Diagnosis: Osteoporosis, unspecified osteoporosis type, unspecified pathological fracture presence. The following absorptiometry data were obtained. The quality of this examination is acceptable with regards to count density, processed images, data display and lack of important artifacts (including but not limited to motion and attenuation artifacts). Serial examination number 2. L1-L4 BMD (g/cm2): 1.006 Adult T-score: -0.4 LEFT FEMORAL NECK BMD (g/cm2): 0.51 Adult T-score: -3.1 LEFT TOTAL HIP BMD (g/cm2): 0.780 Adult T-score: -1.3 Procedure Note Anibal Deng MD - 11/10/2023 DEXA Evaluation of the Lumbar Spine and Left Proximal Femur Reason For Exam: See Diagnosis. Evaluation of bone mineral density. Diagnosis: Osteoporosis, unspecified osteoporosis type, unspecified pathological fracture presence. The following absorptiometry data were obtained. The quality of this examination is acceptable with regards to count density, processed images, data display and lack of important artifacts (including but not limited to motion and attenuation artifacts). Serial examination number 2. L1-L4 BMD (g/cm2): 1.006 Adult T-score: -0.4 LEFT FEMORAL NECK BMD (g/cm2): 0.51 Adult T-score: -3.1 LEFT TOTAL HIP BMD (g/cm2): 0.780 Adult T-score: -1.3 IMPRESSION: Bone mineral density values fall within the osteoporotic range as above. NOF guidelines recommend consideration of FDA-approved medical therapies in patients with FRAX determined 10-year probabilities of hip/major osteoporosis-related fractures equal or greater than 3%/20% respectively. Consider assessing fracture risk using the FRAX analysis tool for guidance of clinical management available online at www.shef.ac.uk/FRAX/. Enter Chu Shu for Select DXA and the Femoral Neck BMD value. Sánchez Macario MD DIAGNOSTIC IMAGING ORDERA TERRY Final Result * COLON CANCER SCREEN, STOOL DNA (12/26/2020 2:45 PM CDT) COLOGUARD RESULT Negative Negative [facility] Comment: NEGATIVE TEST RESULT. A negative Cologuard result indicates a low likelihood that a colorectal cancer (CRC) or advanced adenoma (adenomatous polyps with more advanced pre-malignant features) is present. The chance that a person with a negative Cologuard test has a colorectal cancer is less than 1 in 1500 (negative predictive value >99.9%) or has an advanced adenoma is less than 5.3% (negative predictive value 94.7%). These data are based on a prospective cross-sectional study of 10,000 individuals at average risk for colorectal cancer who were screened with both Cologuard and colonoscopy. (Piotr Rosario al, N Engl J Med 2014;370(14):8986-5366) The normal value (reference range) for this assay is negative. COLOGUARD RE-SCREENING RECOMMENDATION: Periodic colorectal cancer screening is an important part of preventive healthcare for asymptomatic individuals at average risk for colorectal cancer. Following a negative Cologuard result, the [place] Cancer Society and U.S. Multi-Society Task Force screening guidelines recommend a Cologuard re-screening interval of 3 years. References: [place] [employer] Society Guideline for Colorectal Cancer Screening: https://www.cancer.org/cancer/iumem-gjetgu-wicofp/qvnketoge-atppjnqfc-wdejlmy/ac s-rec ommendations.html.; Varun DK, May ZHONG, Denisse JassoK, Colorectal Cancer Screening: Recommendations for Physicians and Patients from the U.S. Multi-Society Task Force on Colorectal Cancer Screening , Am J Gastroenterology 2017; 112:6854-4043. TEST DESCRIPTION: Composite algorithmic analysis of stool DNA-biomarkers with hemoglobin immunoassay. Quantitative values of individual biomarkers are not reportable and are not associated with individual biomarker result reference ranges. Cologuard is intended for colorectal cancer screening of adults of either sex, 45 years or older, who are at average-risk for colorectal cancer (CRC). Cologuard has been approved for use by the U.S. FDA. The performance of Cologuard was established in a cross sectional study of average-risk adults aged 50-84. Cologuard performance in patients ages 45 to 49 years was estimated by sub-group analysis of near-age groups. Colonoscopies performed for a positive result may find as the most clinically significant lesion: colorectal cancer [4.0%], advanced adenoma (including sessile serrated polyps greater than or equal to 1cm diameter) [20%] or non- advanced adenoma [31%]; or no colorectal neoplasia [45%]. These estimates are derived from a prospective cross-sectional screening study of 10,000 individuals at average risk for colorectal cancer who were screened with both Cologuard and colonoscopy. (Piotr Pérez. et al, N Engl J Med 2014;370(14):0397-1082.) Cologuard may produce a false negative or false positive result (no colorectal cancer or precancerous polyp present at colonoscopy follow up). A negative Cologuard test result does not guarantee the absence of CRC or advanced adenoma (pre-cancer). The current Cologuard screening interval is every 3 years. ([place] [employer] Society and U.S. Multi-Society Task Force). Cologuard performance data in a 10,000 patient pivotal study using colonoscopy as the reference method can be accessed at the following location: www.[employer]/results. Additional description of the Cologuard test process, warnings and precautions can be found at www.cologuard.com. Stool STOOL SPECIMEN / Unknown 12/26/2020 2:45 PM CDT 12/28/2020 12:18 AM CDT Jorgito RIVERA BODY FLUIDS AND STOOLS Final Result [facility] CLIA # [id number] [address], [address] [place] [address] from Last 3 Months or Most Recently Relevant to Health Maintenance Insurance MEDICAID [place] [employer] [employer] HMO DSNP RX [facility] Medicare Part D Advance Directives For more information, please contact: [phone] Documents on File Type Date Recorded Patient Content Producer Expl anation Advance Directive POA 06/17/2016 12:16 PM Advance Directive POA * Full Code (Latest Code Status on File) Date Activated Date Inactivated Comments 07/06/2024 11:49 AM * Full Code Date Activated Date Inactivated Comments 06/03/2024 11:57 AM 06/04/2024 5:22 PM * Full Code Date Activated Date Inactivated Comments 02/17/2024 8:51 AM 02/19/2024 5:06 PM * Full Code Date Activated Date Inactivated Comments 06/07/2021 7:38 PM 06/15/2021 1:35 PM * Full Code Date Activated Date Inactivated Comments 06/05/2021 2:42 AM 06/07/2021 6:46 PM Care Teams Emery Wheel Molder Relationship Specialty Start Date End Date Sánchez Macario MD [address] [address] PCP - General Family Practice 04/10/21
--- OUTSIDE RECORDS SUMMARY | 2024-10-15 12:58 | XMS_ITS | Encounter Summary ---
Author Organization [facility] Address [address] [place] [address] Care Team Providers Care Filbert Grower Name Role Phone Sánchez Macario MD Primary Care Provider [phone] [phone] Encounter Details Date Type Department Care Team (Late st Contact Info) Description 05/21/2021 Digital Self COVID-1 9 Monitoring ST[place] ABSTRACTION [...] often do you attend chur ch or judaism services? Never 01/05/2020 Do you belong to any clubs o r organizations such as buddhist groups, unions, fraternal or athletic groups, or [...] on file Legal Sex Female 9:22 AM EDUCATIONAL ADMINISTRATOR Gender Identity Not on file Sexual Orientation Not on file COVID-19 Exposure Response Date Recorded In the last month, have you been in contact with someone who was confirmed or suspected to have Coronavirus / COVID-19? Yes 05/18/2021 1:41 PM EDUCATIONAL ADMINISTRATOR documented as of this encounter Plan of Treatment Upcoming Encounters Date Type Department Care Team (Late st Contact Info) Description 10/26/2024 11:30 AM CDT Appointment [facility] Outpatient Services [place] [address] [place] [phone] 01/14/2025 2:00 PM CDT Office Visit [facility] Family Medicine [place] [address] [place] [phone] Joan De Paz ANDROID IOS DEVELOPER [address] [place] [phone] 02/10/2025 11:30 AM CDT Appointment [facility] Echo [address] [place] [address] Gallito Lance MD [address] [place] [phone] 02/10/2025 1:00 PM CDT Office Visit [facility] [address] [place] [phone] Sarita Oro, [facility] [address] [place] [phone] documented as of this encounter Visit Diagnoses Not on filedocumented in this encounter Additional Health Concerns Infection Onset Date Last Indicated Resolved Time COVID-19 05/11/2021 05/11/2021 05/31/2021 2:22 AM EDUCATIONAL ADMINISTRATOR R/O Respiratory 06/07/2021 06/07/2021 06/07/2021 1 0:14 PM EDUCATIONAL ADMINISTRATOR COVID-19 04/18/2023 04/18/2023 05/08/2023 1:16 AM EDUCATIONAL ADMINISTRATOR R/O C. diff 09/04/2023 09/04/2023 09/04/2023 11:4 7 PM CDT R/O COVID-19 09/04/2023 09/04/2023 09/04/2023 6:46 PM CDT R/O COVID-19 11/11/2023 11/11/2023 11/11/2023 1:08 PM CDT Assessment Noted Time PHQ-9 Depression Total Score: 1 12/14/19 21 11:24 AM CDT documented as of this encounter Care Teams Filbert Grower Relationship Specialty Start Date End Date Sánchez Macario MD [address] [phone] PCP - General Family Practice 04/10/21 documented as of this encounter
--- OUTSIDE RECORDS SUMMARY | 2024-10-15 12:58 | XMS_ITS | Encounter Summary ---
Author Organization [facility] Address [address] [place] [address] Care Team Providers Care Geotechnical Operating Engineer Name Role Phone Sánchez Macario MD Primary Care Provider [phone] Reason for Visit * Reason Comments Clinical Consult Before Scheduling Encounter Details Date Type Department Care Team (Late st Contact Info) Description 10/11/[address] [facility] Medicine [address] [address] Sánchez Macario MD [address] [address] Clinical Consult Before Scheduling Social History Tobacco Use Types Packs/Day Years [...] any clubs o r organizations such as taoist groups, unions, fraternal or athletic groups, or [...] Master's degree (e.g., MA, MS, Omid, MEd, SAUSAGE TIER, TYSHAWN) 06/05/2021 Comments No Sex and Gender Information Value Date Recorded Sex Assigned at Not on file Legal Sex Female 9:22 AM CAR AND YARD SUPERVISOR Gender Identity Not on file Sexual Orientation Not on file documented as of this encounter Miscellaneous Notes * Telephone Encounter - Kristen Thompson - 10/11/2024 11:33 AM CDT I spoke with patient she said she has had kidney infections before. She is going to come to the walk in clinic. * Telephone Encounter - Karen Rowe - 10/11/2024 11:28 AM CDT Copied from [facility] #[id number]. Topic: Symptomatic Care >> Oct 11, 2024 11:24 AM Karen Vang wrote: Has this patient seen any provider (current or former) at the requested clinic in the past? Yes, Select the appropriate age range and symptom Patient has symptoms and is seeking care. Caller Name: Janet Calvillo Callback Number: [phone] (mobile) Call Notes: pain in back is 7 on pain scale - she is thinking a possible kidney infection Age Range/Symptom: Adult 18+ - Attempted transfer to N line and no answer, message routed to greenback. Called backline spoke to Kristen she took call documented in this encounter Plan of Treatment Upcoming Encounters Date Type Department Care Team (Late st Contact Info) Description 10/26/2024 11:30 AM CDT Appointment [facility] Outpatient Services [place] [address] [place] [address] 01/14/2025 2:00 PM CDT Office Visit [facility] Family Medicine [address] [phone] Joan De Paz FNP [address] [place] [phone] 02/10/2025 11:30 AM CDT Appointment [facility] Echo [address] [place] [address] Gallito Lance MD [address] [facility] [address] [place] [phone] 02/10/2025 1:00 PM CDT Office Visit [facility] Cardiology Heart [facility] [address] [facility] [address] [place] [phone] Sarita Oro FNP [address] [facility] [address] [place] [phone] documented as of this encounter Visit Diagnoses Not on filedocumented in this encounter Additional Health Concerns Assessment Noted Time PHQ-9 Depression Total Score: 1 07/02/19 25 2:44 PM CDT documented as of this encounter Care Teams Geotechnical Operating Engineer Relationship Specialty Start Date End Date Sánchez Macario MD [address] [phone] PCP - General Family Practice 04/10/21 documented as of this encounter
--- OUTSIDE RECORDS SUMMARY | 2024-10-15 12:58 | XMS_ITS | Encounter Summary ---
Author Organization [facility] Address [address] [place] [address] Care Team Providers Care Punch Hand Name Role Phone Fabiola Soto MD Primary Care Provider [phone] Encounter Details Date Type Department Care Team (Late st Contact Info) Description 04/22/2006 Outpatient Historical [facility] [address] [place] [address] AMBULANCE, [facility] Headache (Primary Dx) Social History Tobacco Use Types Packs/Day Years Used Date Smoking Tobacco: Never Assessed Comments Unknown Sex and Gender Information Value Date Recorded Sex Assigned at Not on file Legal Sex Female 5:07 AM SENIOR FIRMWARE ENGINEER Gender Identity Not on file Sexual Orientation Not on file documented as of this encounter Plan of Treatment Not on file documented as of this encounter Visit Diagnoses Diagnosis Headache(784.0)- Primary Headache documented in this encounter Additional Health Concerns Infection Onset Date Last Indicated Resolved Time R/O C. diff 10/16/2020 10/16/2020 10/16/2020 11:1 0 AM CDT documented as of this encounter Care Teams Punch Hand Relationship Specialty Start Date End Date Fabiola Soto MD [address] [facility] [address] [place] [phone] PCP - General Family Practice 05/27/13 documented as of this encounter
--- OUTSIDE RECORDS SUMMARY | 2024-10-15 12:58 | XMS_ITS | Encounter Summary ---
Author Organization [facility] Address [address] [place] [address] Care Team Providers Care Commercial Sales Manager Name Role Phone Sánchez Macario MD Primary Care Provider [phone] [phone] Encounter Details Date Type Department Care Team (Late st Contact Info) Description 05/25/2021 Digital Self COVID-1 9 Monitoring STL ABSTRACTION [...] often do you attend chur ch or worship services? Never 01/05/2020 Do you belong to any clubs o r organizations such as adventism groups, unions, fraternal or athletic groups, or [...] on file Legal Sex Female 9:22 AM FILTER CHANGING TECHNICIAN Gender Identity Not on file Sexual Orientation Not on file COVID-19 Exposure Response Date Recorded In the last month, have you been in contact with someone who was confirmed or suspected to have Coronavirus / COVID-19? Yes 05/18/2021 1:41 PM FILTER CHANGING TECHNICIAN documented as of this encounter Plan of Treatment Upcoming Encounters Date Type Department Care Team (Late st Contact Info) Description 10/26/2024 11:30 AM CDT Appointment [facility] Outpatient Services [place] [address] [place] [phone] 01/14/2025 2:00 PM CDT Office Visit [facility] Family Medicine [place] [address] [place] [phone] Joan De Paz TREE FELLER [address] [place] [phone] 02/10/2025 11:30 AM CDT Appointment [facility] Echo [address] [place] [address] Gallito Lance MD [address] [place] [phone] 02/10/2025 1:00 PM CDT Office Visit [facility] [address] [place] [phone] Sarita Oro, [facility] [address] [place] [phone] documented as of this encounter Visit Diagnoses Not on filedocumented in this encounter Additional Health Concerns Infection Onset Date Last Indicated Resolved Time COVID-19 05/11/2021 05/11/2021 05/31/2021 2:22 AM FILTER CHANGING TECHNICIAN R/O Respiratory 06/07/2021 06/07/2021 06/07/2021 1 0:14 PM FILTER CHANGING TECHNICIAN COVID-19 04/18/2023 04/18/2023 05/08/2023 1:16 AM FILTER CHANGING TECHNICIAN R/O C. diff 09/04/2023 09/04/2023 09/04/2023 11:4 7 PM CDT R/O COVID-19 09/04/2023 09/04/2023 09/04/2023 6:46 PM CDT R/O COVID-19 11/11/2023 11/11/2023 11/11/2023 1:08 PM CDT Assessment Noted Time PHQ-9 Depression Total Score: 1 12/14/19 21 11:24 AM CDT documented as of this encounter Care Teams Commercial Sales Manager Relationship Specialty Start Date End Date Sánchez Macario MD [address] [phone] PCP - General Family Practice 04/10/21 documented as of this encounter
--- OUTSIDE RECORDS SUMMARY | 2024-10-15 12:58 | XMS_ITS | Encounter Summary ---
Author Organization [facility] Address [address] [place] [address] Care Team Providers Care Manager Orange Name Role Phone Sánchez Macario MD Primary Care Provider [phone] [phone] Encounter Details Date Type Department Care Team (Late st Contact Info) Description 05/19/2021 Digital Self COVID-1 9 Monitoring STL ABSTRACTION [...] often do you attend chur ch or bahai services? Never 01/05/2020 Do you belong to any clubs o r organizations such as jain groups, unions, fraternal or athletic groups, or [...] on file Legal Sex Female 9:22 AM EQUIPMENT OPERATOR Gender Identity Not on file Sexual Orientation Not on file COVID-19 Exposure Response Date Recorded In the last month, have you been in contact with someone who was confirmed or suspected to have Coronavirus / COVID-19? Yes 05/18/2021 1:41 PM EQUIPMENT OPERATOR documented as of this encounter Plan of Treatment Upcoming Encounters Date Type Department Care Team (Late st Contact Info) Description 10/26/2024 11:30 AM CDT Appointment [facility] Outpatient Services [place] [address] [place] [phone] 01/14/2025 2:00 PM CDT Office Visit [facility] Family Medicine [place] [address] [place] [phone] Joan De Paz ARMATURE VARNISHER [address] [place] [phone] 02/10/2025 11:30 AM CDT Appointment [facility] [address] [place] [address] Gallito Lance MD [address] [place] [phone] 02/10/2025 1:00 PM CDT Office Visit [facility] [address] [place] [phone] Sarita Oro, [facility] [address] [place] [phone] documented as of this encounter Visit Diagnoses Not on filedocumented in this encounter Additional Health Concerns Infection Onset Date Last Indicated Resolved Time COVID-19 05/11/2021 05/11/2021 05/31/2021 2:22 AM EQUIPMENT OPERATOR R/O Respiratory 06/07/2021 06/07/2021 06/07/2021 1 0:14 PM EQUIPMENT OPERATOR COVID-19 04/18/2023 04/18/2023 05/08/2023 1:16 AM EQUIPMENT OPERATOR R/O C. diff 09/04/2023 09/04/2023 09/04/2023 11:4 7 PM CDT R/O COVID-19 09/04/2023 09/04/2023 09/04/2023 6:46 PM CDT R/O COVID-19 11/11/2023 11/11/2023 11/11/2023 1:08 PM CDT Assessment Noted Time PHQ-9 Depression Total Score: 1 12/14/19 21 11:24 AM CDT documented as of this encounter Care Teams Manager Orange Relationship Specialty Start Date End Date Sánchez Macario MD [address] [phone] PCP - General Family Practice 04/10/21 documented as of this encounter
--- OUTSIDE RECORDS SUMMARY | 2024-10-15 12:58 | XMS_ITS | Data Portability ---
Author Organization Zeenat Sahu [facility] Address [address] [place] [phone] Assessment No assessment recorded. Plan of Treatment Reminders Order Date Submit Date Provider Last Modified By Organization Details Last Modified Time Details Appointments None record ed. Lab None record ed. Referral None record ed. Procedures None record ed. Surgeries None record ed. Imaging None record ed. Medication Orders None record ed. Patient TargetsNo targets recorded. Patient Instructions Encounter Date Encounter Id Patient Instructions Last Modified By Organization Details Last Modified Time 09/17/2023 [id number] Hospital records reviewed. Admitted with septic shock and later developed adrenal insufficiency known aortic stenosis with plan for evaluation for TAVR Labs weekly x 4 weeks. Not available 09/22/2023 12:40:57 09/24/2023 [id number] stop several supplements with nausea. d/c lasix d/t low bp. 1 L NS now. [email or web address] Not available 09/25/2023 10:29:18 11/19/2023 [id number] records reviewed . Admitted for respiratory failure with COPD exacerbation, found to have parainfluenza infection. Tx with IV abx and steroids. Ascending aortic dilation 4.1cm in July. Blood pressure low, staff to monitor. Still on prednisone. Will order budesonide nebs bid, duonebs TID. Labs weekly x 4 weeks. f/u 1 week. [email or web address] Not available 11/20/2023 11:06:45 11/26/2023 [id number] doing well, breathing tx helped with cough. mood good. [email or web address] Not available 11/27/2023 11:59:45 Reason for Referral None Reported. Problems Name Problem SNOMED Code Status Onset Date Resolution Date Notes Provider Name and Address Organization Details Recorded Time Hospital inpatient stay within past 30 days 4479534019934 [facility] 13:50:57 Iatrogenic adrenal insufficie ncy 088989987 Active 2023 [facility] 4 13:52:10 Septic shock 28672137 Active 2023 CATALINA BAUER [facility] 4 13:52:11 Interstiti al lung disease 626161229 Active 2023 CATALINA BAUER [facility] 4 13:52:13 Infiltrati ng duct carcinoma of breast 301569733 Active 2023 CATALINA BAUER [facility] 4 13:52:28 Severe aortic valve stenosis 525405482 Active 2023 CATALINA BAUER [facility] 4 13:52:37 Essential hypertensi on 44341798 Active 2023 CATALINA BAUER [facility] 4 11:03:39 Pulmonary embolism 79813047 Active 2023 CATALINA BAUER [facility] 4 11:03:49 Chronic kidney disease stage 3 936244199 Active 2023 CATALINA BAUER [facility] 4 11:04:01 Depressive disorder 54659599 Active 2023 [facility] 4 11:04:08 Problem Notes None recorded. Medical Equipment None Reported. Medications Name Sig Start Date Stop Date Status Note LastModified by Organization Details LastModified Time fluoxetine 40 mg capsule active Not Available Not Available Not Available furosemide 40 mg tablet TAKE 1/2 TO 1 TABLET BY MOUTH DAILY active Not Available Not Available Not Available fluconazole 100 mg tablet TAKE 1 TABLET BY MOUTH EVERY DAY FOR 5 DAYS active Not Available Not Available No t Available fluticasone 250 mcg-salmeter ol 50 mcg/dose blistr powdr for inhalation INHALE 1 PUFF BY MOUTH TWICE DAILY active Not Available Not Available No t Available prednisone 10 mg tablet TAKE 1 TABLET BY MOUTH DAILY FOR 1 WEEK THEN DECREASE TO 1/2 TABLET DAILY active Not Available Not Available No t Available tizanidine 2 mg tablet active Not Available Not Available No t Available levalbuterol 0.63 mg/3 mL solution for nebulization USE ONE VAIL VIA NEBULIZER THREE TIMES DAILY NEEDED FOR SHORTNESS OF BREATH OR WHEEZING active Not Available Not Available Not Available tolterodine ER 4 mg capsule,exte nded release 24 hr TAKE 1 CAPSULE BY MOUTH AT BEDTIME active Not Available Not Available No t Available ondansetron HCl 4 mg tablet TAKE 1 TABLET BY MOUTH FOUR TIMES DAILY NEEDED FOR NAUSEA OR VOMITING active Not Available Not Available Not Available diphenoxylat e-atropine 2.5 mg-0.025 mg tablet TAKE 1 TABLET BY MOUTH TWICE DAILY NEEDED FOR DIARRHEA active Not Available Not Available No t Available potassium chloride ER 10 mEq tablet,exten ded release active Not Available Not Available Not Available prochlorpera zine maleate 10 mg tablet TAKE 1 TABLET BY MOUTH EVERY 4 HOURS NEEDED FOR NAUSEA active Not Available Not Available No t Available sulfamethoxa zole 800 mg-trimethop rim 160 mg tablet TAKE 1 TABLET BY MOUTH TWICE DAILY FOR 5 DAYS. active Not Available Not Available No t Available lidocaine-pr ilocaine 2.5 %-2.5 % topical cream APPLY A QUARTER SIZE TO PORT SITE 30-45 MINUTES PRIOR TO APPOINTMENT . COVER WITH CELLOPHANE active Not Available Not Available N ot Available lorazepam 0.5 mg tablet active Not Available Not Available Not Available ropinirole 0.25 mg tablet active Not Available Not Available Not Available meclizine 25 mg tablet active Not Available Not Available No t Available warfarin 5 mg tablet active Not Available Not Available No t Available levofloxacin 500 mg tablet TAKE 1 TABLET BY MOUTH DAILY FOR 7 DAYS active Not Available Not Available N ot Available albuterol sulfate HFA 90 mcg/actuatio n aerosol inhaler active Not Available Not Available Not Available ondansetron 4 mg disintegrati ng tablet DISSOLVE 1 TABLET ON THE TONGUE EVERY 6 HOURS NEEDED FOR NAUSEA OR VOMITING active Not Available Not Available No t Available fluoxetine 20 mg capsule active Not Available Not Available Not Available levothyroxin e 112 mcg tablet TAKE 1 TABLET BY MOUTH DAILY active Not Available Not Available Not Available oxycodone 5 mg tablet TAKE 1 TABLET BY MOUTH FOUR TIMES DAILY NEEDED FOR PAIN active Not Available Not Available No t Available enoxaparin 100 mg/mL subcutaneous syringe ADMINISTER 1 ML UNDER THE SKIN DAILY active Not Available Not Available No t Available Symbicort 80 mcg-4.5 mcg/actuatio n HFA aerosol inhaler INHALE 2 PUFFS BY MOUTH TWICE DAILY. active Not Available Not Available No t Available Eliquis 5 mg tablet active Not Available Not Available Not Available Lagevrio 200 mg capsule (EUA) TAKE 4 CAPSULES BY MOUTH EVERY 12 HOURS FOR 5 DAYS. active Not Available Not Available Not Available Vitals Date Recorded Body height Body mass index (BMI) Body weight Heart rate Respiratory rate Body temperature Oxygen saturation Oxygen saturation in Arterial blood by Pulse oximetry Systolic blood pressure Diastolic blood pressure Provider Name and Address Organization Details Last Updated DateTime 4 167.64 cm 41 kg/m2 262759. 46 g 85 /min 18 /min 98.2 [degF] 94 % 94 % 113 mm[Hg] 67 mm[Hg] [facility] 4 13:49:06 Date Recorded Body height Body mass index (BMI) Body weight Heart rate Respiratory rate Body temperature Oxygen saturation Oxygen saturation in Arterial blood by Pulse oximetry Systolic blood pressure Diastolic blood pressure Provider Name and Address Organization Details Last Updated DateTime 4 167.64 cm 41 kg/m2 155380. 46 g 84 /min 16 /min 97 [degF] 94 % 94 % 108 mm[Hg] 65 mm[Hg] [facility] 4 09:40:59 Date Recorded Body height Body mass index (BMI) Body weight Heart rate Respiratory rate Body temperature Oxygen saturation Oxygen saturation in Arterial blood by Pulse oximetry Systolic blood pressure Diastolic blood pressure Provider Name and Address Organization Details Last Updated DateTime 4 167.64 cm 35 kg/m2 64354.5 4 g 91 /min 18 /min 98.2 [degF] 94 % 94 % 111 mm[Hg] 60 mm[Hg] CATALINA BAUER [facility], [facility]at 11:57:35 Social History None recorded. Functional Status None recorded. Mental Status None recorded. Family History Nothing Reported. Medical History No medical history recorded. Gynecological HistoryNo gynecological history recorded. Obstetrics History GPAL:G 0 P 0 0 0 0 Past Encounters Encounter ID Performer Location Encounter Start Date Encounter Closed Date Diagnosis/Indication Diagnosis SNOMED-CT Code Diagnosis ICD10 Code Diagnosis Note [id number] Piotr Palmer [facility] ([facility]) [address] [place] [phone] 09/17/2023 11:29:53 09/22/2023 14:32:29 Hospital inpatient stay within past 30 days [id number] 106 Z76.89 Septic shock 66449456 R6 5.21 Iatrogenic adrenal insufficiency 733406231 E27.3 Interstiti al lung disease 312719314 J84.9 Infiltrati ng duct carcinoma of breast 393171304 C50.919 Severe aor tic valve stenosis 414058158 I35.0 [id number] Piotr Palmer DO [facility] ([facility]) [address] [place] [phone] 09/24/2023 08:12:39 09/30/2023 12:02:33 Interstitial lung disease 663322750 J84.9 Iatrogenic adrenal insufficiency 048062964 E27.3 Infiltrati ng duct carcinoma of breast 221361580 C50.919 Nausea 286322306 R11.0 Dehydration 22686982 E86 .0 [id number] Piotr Palmer DO [facility] ([facility]) [address] [place] [phone] 11/19/2023 16:38:37 11/24/2023 14:57:55 Hospital inpatient stay within past 30 days 3965562550 106 Z76.89 Severe aor tic valve stenosis 594657162 I35.0 Essential hypertension 26508234 I10 Pulmonary embolism 95852 003 I26.99 Chronic ki dney disease stage 3 265030891 N18.31 Depressive disorder 3548 9007 F32.A [id number] Piotr Palmer DO [facility] ([facility]) [address] [place] [address] 11/26/2023 11:18:04 11/27/2023 16:41:14 Interstitial lung disease 832568538 J84.9 Chronic ki dney disease stage 3 099102880 N18.31 Depressive disorder 3548 9007 F32.A Essential hypertension 99012955 I10 Health Concerns Section Related Observation LastModified by Organization Detai ls LastModified Time None Recorded Concern Status LastModified by Organization Details LastModified Time None Recorded Advance Directives Directive None Recorded Payers Insurance Date Sequence Insurance Name Policy Number Policy Mallory Covered Member ID Mallory Member ID Guarantor Name 09/25/2023 1 [place] Janet Calvillo [id number] Janet Calvillo 11/25/2023 [place] - [facility] (MEDICARE) Janet Calvillo [id number] Janet Calvillo 09/25/2023 1 [place] - PPO) [id number] Janet Calvillo [id number] Janet Calvillo 12/02/2023 1 [place] (MEDICARE REPLACEMENT HMO) [id number] Janet Calvillo [id number] Janet Calvillo 09/17/2023 1 [place] - [place]) Janet Calvillo [id number] Janet Calvillo Notes Date Note Type Note Provider Name and Address Organization Details Recorded Time 09/17/2023 text/html Care Management - GeneralReported bypatient.Prognosis:e xpected outcome: stabilize; prognosis: moderate Context:not current smoker Lifestyle Changes:exercises regularly Medication Therapy:compliant with follow-up visits; compliance with oral medication is good; understands effect of concurrent medications; understands potential side effects; understands missed doses Piotr Palmer DO [address] [place] [address], [phone], [facility] 09/22/2023 12:41:20 09/24/2023 text/html Care Management - GeneralReported bypatient.Prognosis:e xpected outcome: stabilize; prognosis: moderate Context:not current smoker Lifestyle Changes:exercises regularly Medication Therapy:compliant with follow-up visits; compliance with oral medication is good; understands effect of concurrent medications; understands potential side effects; understands missed doses Piotr Palmer DO [address] [place] [address], [phone], [facility] 09/29/2023 10:18:02 11/19/2023 text/html Care Management - GeneralReported bypatient.Prognosis:e xpected outcome: stabilize; prognosis: moderate Context:not current smoker Lifestyle Changes:exercises regularly Medication Therapy:compliant with follow-up visits; compliance with oral medication is good; understands effect of concurrent medications; understands potential side effects; understands missed doses Piotr Palmer DO [address] [place] [address], [phone], [facility] 11/24/2023 08:50:43 11/26/2023 text/html Care Management - GeneralReported bypatient.Prognosis:e xpected outcome: stabilize; prognosis: moderate Context:not current smoker Lifestyle Changes:exercises regularly Medication Therapy:compliant with follow-up visits; compliance with oral medication is good; understands effect of concurrent medications; understands potential side effects; understands missed doses Piotr Palmer DO [address] [place] [address], [phone], [facility] 12/01/2023 12:00:19 OBGyn Episode No OBEpisode recorded.
--- OUTSIDE RECORDS SUMMARY | 2024-10-15 12:58 | XMS_ITS | Encounter Summary ---
Author Organization [facility] Address [address] [place] [address] Care Team Providers Care Manufacturing Director Name Role Phone Sánchez Macario MD Primary Care Provider [phone] Encounter Details Date Type Department Care Team (Late st Contact Info) Description 05/24/2021 Digital Self COVID-1 9 Monitoring STL ABSTRACTION [...] often do you attend chur ch or yazidism services? Never 01/05/2020 Do you belong to any clubs o r organizations such as sikh groups, unions, fraternal or athletic groups, or [...] on file Legal Sex Female 9:22 AM CREASING MACHINE OPERATOR Gender Identity Not on file Sexual Orientation Not on file COVID-19 Exposure Response Date Recorded In the last month, have you been in contact with someone who was confirmed or suspected to have Coronavirus / COVID-19? Yes 05/18/2021 1:41 PM CREASING MACHINE OPERATOR documented as of this encounter Plan of Treatment Upcoming Encounters Date Type Department Care Team (Late st Contact Info) Description 10/26/2024 11:30 AM CDT Appointment [facility] [place] [address] [place] [phone] 01/14/2025 2:00 PM CDT Office Visit [facility] [place] [address] [place] [phone] Joan De Paz FINISHED CIGAR MAKER [address] [place] [phone] 02/10/2025 11:30 AM CDT Appointment [facility] [place] [address] [place] [address] Gallito Lance MD [address] [place] [phone] 02/10/2025 1:00 PM CDT Office Visit [facility] [address] [place] [phone] Sarita Oro, [facility] [address] [place] [phone] documented as of this encounter Visit Diagnoses Not on filedocumented in this encounter Additional Health Concerns Infection Onset Date Last Indicated Resolved Time COVID-19 05/11/2021 05/11/2021 05/31/2021 2:22 AM CREASING MACHINE OPERATOR R/O Respiratory 06/07/2021 06/07/2021 06/07/2021 1 0:14 PM CREASING MACHINE OPERATOR COVID-19 04/18/2023 04/18/2023 05/08/2023 1:16 AM CREASING MACHINE OPERATOR R/O C. diff 09/04/2023 09/04/2023 09/04/2023 11:4 7 PM CDT R/O COVID-19 09/04/2023 09/04/2023 09/04/2023 6:46 PM CDT R/O COVID-19 11/11/2023 11/11/2023 11/11/2023 1:08 PM CDT Assessment Noted Time PHQ-9 Depression Total Score: 1 12/14/19 21 11:24 AM CDT documented as of this encounter Care Teams Manufacturing Director Relationship Specialty Start Date End Date Sánchez Macario MD [address] [phone] PCP - General Family Practice 04/10/21 documented as of this encounter
--- OUTSIDE RECORDS SUMMARY | 2024-10-15 12:58 | XMS_ITS | Encounter Summary ---
Author Organization [facility] Address [address] [place] [address] Care Team Providers Care Pig Conveyor Operator Name Role Phone Fabiola Soto MD Primary Care Provider [phone] Encounter Details Date Type Department Care Team (Late st Contact Info) Description 08/29/2012 Ancillary Orders [facility] [place] [address] [place] [address] Social History Tobacco Use Types Packs/Day Years Used Date Smoking Tobacco: Never Smokeless Tobacco: Never Alcohol Use Standard Drinks/Week Comments No 0 (1 standard drink = 0.6 oz pur e alcohol) Comments No Sex and Gender Information Value Date Recorded Sex Assigned at Not on file Legal Sex Female 5:07 AM CORPORATE PLANNING MANAGER Gender Identity Not on file Sexual Orientation Not on file Occupation Industry Job Start Date Job End Date Not on file Not on file Not on file Not on file documented as of this encounter Plan of Treatment Not on file documented as of this encounter Procedures Procedure Name Priority Date/Time Associated Diagnosis Comments CBC WITHOUT DIFFERENTIAL Routine 08/29/2012 9:00 AM CDT ALT Routine 08/29/2012 9:00 AM CDT TSH Routine 08/29/2012 9:00 AM CDT HEMOGLOBIN A1C Routine 08/29/2012 9:00 AM CDT CREATININE Routine 08/29/2012 9:00 AM CDT LIPID PANEL Routine 08/29/2012 9:00 AM CDT documented in this encounter Results * CREATININE (08/29/2012 9:00 AM CDT) CREATININE 0.90 0.60 - 1.30 mg/dL 08/29/2012 3:19 PM CDT [facility] GFR 62 >=60 mL/min/1.7 3 sq meter 08/29/2012 3:19 PM CDT [facility] GFR, 75 >=60 mL/min/1.7 3 sq meter 08/29/2012 3:19 PM CDT [facility] Blood specimen (specimen) 08/29/2012 9:00 AM CDT 08/29/2012 1:48 PM CDT Narrative [facility] - 08/29/2012 3:19 PM CDT eGFR has not been validated for use in the elderly (> 70 years of age), women, patients with serious co-morbid conditions, or persons with extremes of body size or muscle mass and should also be interpreted with caution in patients with acute kidney failure, dialysis dependant patients, patients reporting exceptional dietary intake (e.g. vegetarian diet, high protein diets, creatine supplementation), and patients with severe liver disease. Based on National Kidney Disease Education Program Philly Darling APRN CHEMISTRY ORDERAB LES Final Result Performing Organization Address City/[facility]/ZIP Co de Phone Number [facility] CLIA # [id number] [address] [place] [address] * (ABNORMAL) ALT (08/29/2012 9:00 AM CDT) ALT 23(L) 30 - 65 U/L 08/29/2012 3:19 PM CDT [facility] Blood specimen (specimen) 08/29/2012 9:00 AM CDT 08/29/2012 1:48 PM CDT [facility] ATHLETIC TURF WORKER CHEMISTRY ORDERAB LES Final Result [facility] CLIA # [id number] [address] [address] * (ABNORMAL) CBC WITHOUT DIFFERENTIAL (08/29/2012 9:00 AM CDT) WBC 5.6 4.0 - 10.0 K/uL 08/29/2012 8:45 PM CDT [facility] RBC 4.45 3.93 - 5.22 M/uL 08/29/2012 8:45 PM CDT [facility] HEMOGLOBIN 13.7 11.2 - 15.7 g/dL 08/29/2012 8:45 PM CDT [facility] HEMATOCRIT 42.4 34.1 - 44.9 % 08/29/2012 8:45 PM CDT [facility] MCV 95.3(H) 79.4 - 94.8 fL 08/29/2012 8:45 PM CDT [facility] MCH 30.8 25.6 - 32.2 pg 08/29/2012 8:45 PM CDT [facility] MCHC 32.3 32.2 - 35.5 g/dL 08/29/2012 8:45 PM CDT [facility] PLATELETS 255 163 - 337 K/uL 08/29/2012 8:45 PM CDT [facility] MPV 11.5 10.0 - 14.8 fL 08/29/2012 8:45 PM CDT [facility] RDW 14.1 11.0 - 14.5 % 08/29/2012 8:45 PM CDT [facility] RDW-STDEV 47.2 37.0 - 54.0 fL 08/29/2012 8:45 PM CDT [facility] Blood specimen (specimen) 08/29/2012 9:00 AM CDT 08/29/2012 1:48 PM CDT us Philly Darling ATHLETIC TURF WORKER HEMATOLOGY ORDERA BLES Final Result [facility] CLIA # [id number] [address] [place] [address] * (ABNORMAL) TSH (08/29/2012 9:00 AM CDT) TSH 5.94(H) 0.30 - 4.80 uIU/mL 08/29/2012 3:19 PM CDT [facility] Blood specimen (specimen) 08/29/2012 9:00 AM CDT 08/29/2012 1:48 PM CDT [facility] Final Result Performing Organization Address City/[facility]/ZIP Co de Phone Number [facility] CLIA # [id number] [address] [place] [address] * HEMOGLOBIN A1C (08/29/2012 9:00 AM CDT) HEMOGLOBIN A1C 5.8 4.5 - 6.2 % 08/31/2012 9:51 AM CDT [facility] EST. AVG GLUCOSE, A1C 120 mg/dL 08/31/2012 9:51 AM CDT [facility] Blood specimen (specimen) 08/29/2012 9:00 AM CDT 08/29/2012 1:48 PM CDT [facility] CHEMISTRY ORDERAB LES Final Result [facility] CLIA # [id number] [address] [place] [address] * (ABNORMAL) LIPID PANEL (08/29/2012 9:00 AM CDT) CHOLESTEROL 218(H) 130 - 200 mg/dL 08/29/2012 3:19 PM CDT [facility] TRIGLYCERIDE 101 30 - 200 mg/dL 08/29/2012 3:19 PM CDT [facility] HDL 50 35 - 80 mg/dL 08/29/2012 3:19 PM CDT [facility] LDL CALCULATED 148(H) 0 - 100 mg/dL 08/29/2012 3:19 PM CDT [facility] Blood specimen (specimen) 08/29/2012 9:00 AM CDT 08/29/2012 1:48 PM CDT Narrative [facility] - 08/29/2012 3:19 PM CDT TOTAL CHOLESTEROL mg/dL Desirable <200 Borderline high 200-239 High >=240 TRIGLYCERIDES mg/dL Normal <150 Borderline high 150-199 High 200-499 Very high >=500 HDL CHOLESTEROL mg/dL Low <40 Normal 40-60 Desirable >60 LDL CHOLESTEROL mg/dL Optimal <100 Low risk 100-129 Borderline high 130-159 High 160-189 Very high >=190 Based on AHA/NCEP Guidelines Philly Darling ATHLETIC TURF WORKER CHEMISTRY ORDERAB LES Final Result [facility] CLIA # [id number] [address] [address] documented in this encounter Visit Diagnoses Not on filedocumented in this encounter Additional Health Concerns Infection Onset Date Last Indicated Resolved Time R/O C. diff 10/16/2020 10/16/2020 10/16/2020 11:1 0 AM CDT documented as of this encounter Care Teams Pig Conveyor Operator Relationship Specialty Start Date End Date Fabiola Soto MD [address] [phone] PCP - General Family Practice 05/27/13 documented as of this encounter
--- OUTSIDE RECORDS SUMMARY | 2024-10-15 12:58 | XMS_ITS | Encounter Summary ---
Author Organization [facility] Address [address] [place] [address] Care Team Providers Care Handcrew Foreman Name Role Phone Sánchez Macario MD Primary Care Provider +1 [phone] Encounter Details Date Type Department Care Team (Late st Contact Info) Description 05/20/2021 Digital Self COVID-1 9 Monitoring [place] ABSTRACTION [...] often do you attend chur ch or jainism services? Never 01/05/2020 Do you belong to [...] on file Legal Sex Female 9:22 AM MACHINE PACK ASSEMBLER Gender Identity Not on file Sexual Orientation Not on file COVID-19 Exposure Response Date Recorded In the last month, have you been in contact with someone who was confirmed or suspected to have Coronavirus / COVID-19? Yes 05/18/2021 1:41 PM MACHINE PACK ASSEMBLER documented as of this encounter Plan of Treatment Upcoming Encounters Date Type Department Care Team (Late st Contact Info) Description 10/26/2024 11:30 AM CDT Appointment [facility] Outpatient Services [place] [address] [place] [phone] 01/14/2025 2:00 PM CDT Office [facility] Family [facility] [place] [address] [place] [phone] Joan De Paz LITIGATION MANAGER [address] [place] [phone] 02/10/2025 11:30 AM CDT Appointment [facility] [place] [address] [place] [address] Gallito Lance MD [address] [place] [phone] 02/10/2025 1:00 PM CDT Office Visit [facility] [address] [place] [phone] Sarita Oro, [facility] [address] [place] [phone] documented as of this encounter Visit Diagnoses Not on filedocumented in this encounter Additional Health Concerns Infection Onset Date Last Indicated Resolved Time COVID-19 05/11/2021 05/11/2021 05/31/2021 2:22 AM MACHINE PACK ASSEMBLER R/O Respiratory 06/07/2021 06/07/2021 06/07/2021 1 0:14 PM MACHINE PACK ASSEMBLER COVID-19 04/18/2023 04/18/2023 05/08/2023 1:16 AM MACHINE PACK ASSEMBLER R/O C. diff 09/04/2023 09/04/2023 09/04/2023 11:4 7 PM CDT R/O COVID-19 09/04/2023 09/04/2023 09/04/2023 6:46 PM CDT R/O COVID-19 11/11/2023 11/11/2023 11/11/2023 1:08 PM CDT Assessment Noted Time PHQ-9 Depression Total Score: 1 12/14/19 21 11:24 AM CDT documented as of this encounter Care Teams Handcrew Foreman Relationship Specialty Start Date End Date Sánchez Macario MD [address] [phone] PCP - General Family Practice 04/10/21 documented as of this encounter
--- OUTSIDE RECORDS SUMMARY | 2024-10-15 12:58 | XMS_ITS | Encounter Summary ---
Author Organization [facility] Address [address] [place] [address] Care Team Providers Care Laborer Electroplating Name Role Phone Sánchez Macario MD Primary Care Provider [phone] [phone] Encounter Details Date Type Department Care Team (Late st Contact Info) Description 10/12/2024 External Device Data [place] ABSTRACTION Provider, Abstract NO ADDRESS ON [...] any clubs o r organizations such as anglican groups, unions, fraternal or athletic groups, or [...] Master's degree (e.g., MA, MS, Omid, MEd, ACCOUNT PROCESSOR, TYSHAWN) 06/05/2021 Comments No Sex and Gender Information Value Date Recorded Sex Assigned at Not on file Legal Sex Female 9:22 AM TRANSMITTER SUPERVISOR Gender Identity Not on file Sexual Orientation Not on file documented as of this encounter Plan of Treatment Upcoming Encounters Date Type Department Care Team (Late st Contact Info) Description 10/26/2024 11:30 AM CDT Appointment [facility] Outpatient Services [place] [address] [place] [phone] 01/14/2025 2:00 PM CDT Office Visit [facility] Family Medicine [place] [address] [place] [phone] Joan De Paz FNP [address] [place] [phone] 02/10/2025 11:30 AM CDT Appointment [facility] Echo [address] [place] [phone] Gallito Lance MD [address] [facility] [address] [place] [phone] 02/10/2025 1:00 PM CDT Office Visit [facility] [address] [facility] [address] [place] [address] Sarita Oro, [facility] [address] [facility] [address] [place] [address] documented as of this encounter Visit Diagnoses Not on filedocumented in this encounter Additional Health Concerns Assessment Noted Time PHQ-9 Depression Total Score: 1 07/02/19 25 2:44 PM CDT documented as of this encounter Care Teams Laborer Electroplating Relationship Specialty Start Date End Date Sánchez Macario MD [address] [phone] PCP - General Family Practice 04/10/21 documented as of this encounter
--- OUTSIDE RECORDS SUMMARY | 2024-10-15 12:58 | XMS_ITS | Encounter Summary ---
Author Organization [facility] Address [address] [place] [address] Care Team Providers Care Delinquent Account Clerk Name Role Phone Sánchez Macario MD Primary Care Provider [phone] [phone] Encounter Details Date Type Department Care Team [...] often do you attend chur ch or orthodox services? Never 01/05/2020 Do you belong to any clubs o r organizations such as mu-ism groups, unions, fraternal or athletic groups, or [...] on file Legal Sex Female 9:22 AM MOTION PICTURE EQUIPMENT SUPERVISOR Gender Identity Not on file Sexual Orientation Not on file COVID-19 Exposure Response Date Recorded In the last month, have you been in contact with someone who was confirmed or suspected to have Coronavirus / COVID-19? Yes 05/18/2021 1:41 PM MOTION PICTURE EQUIPMENT SUPERVISOR documented as of this encounter Plan of Treatment Upcoming Encounters Date Type Department Care Team (Late st Contact Info) Description 10/26/2024 11:30 AM CDT Appointment [facility] Outpatient Services [place] [address] [place] [phone] 01/14/2025 2:00 PM CDT Office Visit [facility] Family Medicine [place] [address] [place] [phone] Joan De Paz IMAGER [address] [place] [phone] 02/10/2025 11:30 AM CDT Appointment [facility] Echo [address] [place] [address] Gallito Lance MD [address] [place] [phone] 02/10/2025 1:00 PM CDT Office Visit [facility] [address] [place] [phone] Sarita Oro, [facility] [address] [place] [phone] documented as of this encounter Visit Diagnoses Not on filedocumented in this encounter Additional Health Concerns Infection Onset Date Last Indicated Resolved Time COVID-19 05/11/2021 05/11/2021 05/31/2021 2:22 AM MOTION PICTURE EQUIPMENT SUPERVISOR R/O Respiratory 06/07/2021 06/07/2021 06/07/2021 1 0:14 PM MOTION PICTURE EQUIPMENT SUPERVISOR COVID-19 04/18/2023 04/18/2023 05/08/2023 1:16 AM MOTION PICTURE EQUIPMENT SUPERVISOR R/O C. diff 09/04/2023 09/04/2023 09/04/2023 11:4 7 PM CDT R/O COVID-19 09/04/2023 09/04/2023 09/04/2023 6:46 PM CDT R/O COVID-19 11/11/2023 11/11/2023 11/11/2023 1:08 PM CDT Assessment Noted Time PHQ-9 Depression Total Score: 1 12/14/19 21 11:24 AM CDT documented as of this encounter Care Teams Delinquent Account Clerk Relationship Specialty Start Date End Date Sánchez Macario MD [address] [phone] PCP - General Family Practice 04/10/21 documented as of this encounter
--- OUTSIDE RECORDS SUMMARY | 2024-10-15 12:58 | XMS_ITS | Encounter Summary ---
Author Organization [facility] Address [address] [place] [address] Care Team Providers Care Psychiatry Instructor Name Role Phone Sánchez Macario MD Primary Care Provider [phone] [phone] Encounter Details Date Type Department Care Team [...] any clubs o r organizations such as episcopal groups, unions, fraternal or athletic groups, or [...] on file Legal Sex Female 9:22 AM POTTER OR CERAMIC ARTIST Gender Identity Not on file Sexual Orientation Not on file COVID-19 Exposure Response Date Recorded In the last month, have you been in contact with someone who was confirmed or suspected to have Coronavirus / COVID-19? Yes 05/18/2021 1:41 PM POTTER OR CERAMIC ARTIST documented as of this encounter Plan of Treatment Upcoming Encounters Date Type Department Care Team (Late st Contact Info) Description 10/26/2024 11:30 AM CDT Appointment [facility] Outpatient Services [place] [address] [place] [phone] 01/14/2025 2:00 PM CDT Office Visit [facility] Family Medicine [place] [address] [place] [phone] Joan De Paz HELP DESK REP [address] [place] [phone] 02/10/2025 11:30 AM CDT Appointment [facility] Echo [address] [place] [address] Gallito Lance MD [address] [place] [phone] 02/10/2025 1:00 PM CDT Office Visit [facility] [address] [place] [phone] Sarita Oro, [facility] [address] [place] [phone] documented as of this encounter Visit Diagnoses Not on filedocumented in this encounter Additional Health Concerns Infection Onset Date Last Indicated Resolved Time COVID-19 05/11/2021 05/11/2021 05/31/2021 2:22 AM POTTER OR CERAMIC ARTIST R/O Respiratory 06/07/2021 06/07/2021 06/07/2021 1 0:14 PM POTTER OR CERAMIC ARTIST COVID-19 04/18/2023 04/18/2023 05/08/2023 1:16 AM POTTER OR CERAMIC ARTIST R/O C. diff 09/04/2023 09/04/2023 09/04/2023 11:4 7 PM CDT R/O COVID-19 09/04/2023 09/04/2023 09/04/2023 6:46 PM CDT R/O COVID-19 11/11/2023 11/11/2023 11/11/2023 1:08 PM CDT Assessment Noted Time PHQ-9 Depression Total Score: 1 12/14/19 21 11:24 AM CDT documented as of this encounter Care Teams Psychiatry Instructor Relationship Specialty Start Date End Date Sánchez Macario MD [address] [phone] PCP - General Family Practice 04/10/21 documented as of this encounter
--- OUTSIDE RECORDS SUMMARY | 2024-10-15 12:58 | XMS_ITS | Encounter Summary ---
Author Organization [facility] Address [address] [place] [address] Care Team Providers Care Grad Intern Name Role Phone Fabiola Soto MD Primary Care Provider [phone]- [phone] Encounter Details Date Type Department Care Team (Late st Contact Info) Description 09/07/2011 Ancillary Orders [facility] General Laboratory Services [place] [address] [place] [address] Social History Tobacco Use Types Packs/Day Years Used Date Smoking Tobacco: Never Smokeless Tobacco: Never Alcohol Use Standard Drinks/Week Comments Yes 4.2 (1 standard drink = 0.6 oz p ure alcohol) month Comments No Sex and Gender Information Value Date Recorded Sex Assigned at Not on file Legal Sex Female 5:07 AM SENIOR ANDROID SOFTWARE ENGINEER Gender Identity Not on file Sexual Orientation Not on file documented as of this encounter Plan of Treatment Not on file documented as of this encounter Procedures Procedure Name Priority Date/Time Associated Diagnosis Comments CBC WITH DIFFERENTIAL Routine 09/07/2011 8:10 AM CDT IRON LEVEL Routine 09/07/2011 8:10 AM CDT FERRITIN Routine 09/07/2011 8:10 AM CDT LIPID PANEL Routine 09/07/2011 8:10 AM CDT COMPREHENSIVE METABOLIC PANEL Routine 09/07/2011 8:10 AM CDT documented in this encounter Results * (ABNORMAL) CBC WITH DIFFERENTIAL (09/07/2011 8:10 AM CDT) WBC 6.3 4.0 - 10.0 K/uL 09/07/2011 3:07 PM CDT [facility] [place] RBC 4.32 3.93 - 5.22 M/uL 09/07/2011 3:07 PM CDT [facility] [place] HEMOGLOBIN 13.3 11.2 - 15.7 g/dL 09/07/2011 3:07 PM CDT [facility] [place] HEMATOCRIT 40.3 34.1 - 44.9 % 09/07/2011 3:07 PM CDT [facility] [place] MCV 93.3 79.4 - 94.8 fL 09/07/2011 3:07 PM CDT [facility] [place] MCH 30.8 25.6 - 32.2 pg 09/07/2011 3:07 PM CDT [facility] [place] MCHC 33.0 32.2 - 35.5 g/dL 09/07/2011 3:07 PM CDT [facility] [place] RDW 13.8 11.0 - 14.5 % 09/07/2011 3:07 PM CDT [facility] [place] RDW-STDEV 46.0 fL 09/07/2011 3:07 PM CDT [facility] [place] PLATELETS 227 163 - 337 K/uL 09/07/2011 3:07 PM CDT [facility] [place] MPV 12.1 10.0 - 14.8 fL 09/07/2011 3:07 PM CDT [facility] [place] NEUTROPHILS 70 34 - 71 % 09/07/2011 3:07 PM CDT [facility] [place] LYMPHOCYTES 17(L) 19 - 52 % 09/07/2011 3:07 PM CDT [facility] [place] MONOCYTES 9 5 - 13 % 09/07/2011 3:07 PM CDT [facility] [place] EOSINOPHILS 5 1 - 6 % 09/07/2011 3:07 PM CDT [facility] [place] BASOPHILS 1 0 - 1 % 09/07/2011 3:07 PM CDT [facility] [place] NEUTROPHIL ABSOLUTE 4.38 1.56 - 6.13 K/uL 09/07/2011 3:07 PM CDT [facility] [place] LYMPHOCYTE ABSOLUTE 1.05(L) 1.20 - 3.40 K/uL 09/07/2011 3:07 PM CDT [facility] MONOCYTE ABSOLUTE 0.54(H) 0.24 - 0.36 K/uL 09/07/2011 3:07 PM CDT [facility] EOSINOPHIL ABSOLUTE 0.29 0.04 - 0.36 K/uL 09/07/2011 3:07 PM CDT [facility] BASOPHILS ABSOLUTE 0.03 0.01 - 0.08 K/uL 09/07/2011 3:07 PM CDT [facility] Blood specimen (specimen) 09/07/2011 8:10 AM CDT 09/07/2011 9:21 AM CDT [facility] OFFICE MACHINERY OR EQUIPMENT INSTALLER HEMATOLOGY ORDERA BLES Final Result [facility] CLIA # [id number] [address] [place] [address] * (ABNORMAL) COMPREHENSIVE METABOLIC PANEL (09/07/2011 8:10 AM CDT) SODIUM 141 136 - 145 mmol/L 09/07/2011 5:18 PM CDT [facility] POTASSIUM 3.8 3.5 - 5.1 mmol/L 09/07/2011 5:18 PM CDT [facility] CHLORIDE 106 98 - 107 mmol/L 09/07/2011 5:18 PM CDT [facility] CO2 25 21 - 32 mmol/L 09/07/2011 5:18 PM CDT [facility] CALCIUM 9.1 8.5 - 10.1 mg/dL 09/07/2011 5:18 PM CDT [facility] BUN 17 7 - 18 mg/dL 09/07/2011 5:18 PM CDT [facility] CREATININE 0.80 0.60 - 1.30 mg/dL 09/07/2011 5:18 PM CDT [facility] GLUCOSE 74 74 - 106 mg/dL 09/07/2011 5:18 PM CDT [facility] LABORATORY [facility] TOTAL PROTEIN 6.6 6.4 - 8.2 g/dL 09/07/2011 5:18 PM CDT [facility] ALBUMIN 3.3(L) 3.4 - 5.0 g/dL 09/07/2011 5:18 PM CDT [facility] BILIRUBIN TOTAL 0.3 0.2 - 1.0 mg/dL 09/07/2011 5:18 PM CDT [facility] ALKALINE PHOSPHATASE 110 50 - 136 U/L 09/07/2011 5:18 PM T [facility] AST 15 15 - 37 U/L 09/07/2011 5:18 PM CDT [facility] ALT 32 30 - 65 U/L 09/07/2011 5:18 PM CDT [facility] GFR 71 >=60 mL/min/1.7 3 sq meter 09/07/2011 5:18 PM T [facility] GFR, 86 >=60 mL/min/1.7 3 sq meter 09/07/2011 5:18 PM T [facility] Blood specimen (specimen) 09/07/2011 8:10 AM CDT 09/07/2011 9:21 AM CDT Narrative [facility] - 09/07/2011 5:18 PM CDT eGFR has not been validated [...] Based on National Kidney Disease Education Program us Philly Darling APRN CHEMISTRY ORDERAB LES Final Result [facility] CLIA # [id number] [address] [facility] [address] [place] [address] * (ABNORMAL) LIPID PANEL (09/07/2011 8:10 AM CDT) [facility] Signature CHOLESTEROL 204(H) 130 - 200 mg/dL 09/07/2011 5:18 PM CDT [facility] LABORATORY [facility] TRIGLYCERIDE 130 30 - 200 mg/dL 09/07/2011 5:18 PM CDT [facility] HDL 44 35 - 80 mg/dL 09/07/2011 5:18 PM CDT [facility] LDL CALCULATED 134(H) 0 - 100 mg/dL 09/07/2011 5:18 PM CDT [facility] Blood specimen (specimen) 09/07/2011 8:10 AM CDT 09/07/2011 9:21 AM CDT Narrative [facility] LABORATORY [facility] - 09/07/2011 5:18 PM CDT TOTAL CHOLESTEROL mg/dL Desirable <200 Borderline high 200-239 High >=240 TRIGLYCERIDES mg/dL Normal <150 Borderline high 150-199 High 200-499 Very high >=500 HDL CHOLESTEROL mg/dL Low <40 Normal 40-60 Desirable >60 LDL CHOLESTEROL mg/dL Optimal <100 Low risk 100-129 Borderline high 130-159 High 160-189 Very high >=190 Based on AHA/NCEP Guidelines Philly Darling APRN CHEMISTRY ORDERAB LES Final Result Performing Organization Address City/[facility]/ZIP Co de Phone Number [facility] CLIA # [id number] [address] [place] [address] * FERRITIN (09/07/2011 8:10 AM CDT) FERRITIN 81.0 8.0 - 252.0 ng/mL 09/07/2011 6:41 PM CDT [facility] [employer] [facility] Blood specimen (specimen) 09/07/2011 8:10 AM CDT 09/07/2011 9:21 AM CDT [facility] OFFICE MACHINERY OR EQUIPMENT INSTALLER CHEMISTRY ORDERAB LES Final Result Performing Organization Address City/[facility]/ZIP Co de Phone Number [facility] CLIA # [id number] [address] [place] [address] * IRON LEVEL (09/07/2011 8:10 AM CDT) IRON 58 50 - 170 ug/dL 09/07/2011 6:41 PM CDT [facility] LABOR[facility] Blood specimen (specimen) 09/07/2011 8:10 AM CDT 09/07/2011 9:21 AM CDT Philly Darling OFFICE MACHINERY OR EQUIPMENT INSTALLER CHEMISTRY ORDERAB LES Final Result [facility] LABORATORY [facility] CLIA # [id number] [address] [address] documented in this encounter Visit Diagnoses Not on filedocumented in this encounter Additional Health Concerns Infection Onset Date Last Indicated Resolved Time R/O C. diff 10/16/2020 10/16/2020 10/16/2020 11:1 0 AM CDT documented as of this encounter Care Teams Grad Intern Relationship Specialty Start Date End Date Fabiola Soto MD [address] [phone] PCP - General Family Practice 05/27/13 documented as of this encounter
--- OUTSIDE RECORDS SUMMARY | 2024-10-15 12:58 | XMS_ITS | Encounter Summary ---
Author Organization [facility] Address [address] [place] [address] Care Team Providers Care Paper Rewinder Operator Name Role Phone Sánchez Macario MD Primary Care Provider [phone] [phone] Encounter Details Date Type Department Care Team [...] often do you attend chur ch or sikh services? Never 01/05/2020 Do you belong to any clubs o r organizations such as nondenominational groups, unions, fraternal or athletic groups, or [...] on file Legal Sex Female 9:22 AM POLYGRAPH EXAMINER Gender Identity Not on file Sexual Orientation Not on file COVID-19 Exposure Response Date Recorded In the last month, have you been in contact with someone who was confirmed or suspected to have Coronavirus / COVID-19? Yes 05/18/2021 1:41 PM POLYGRAPH EXAMINER documented as of this encounter Plan of Treatment Upcoming Encounters Date Type Department Care Team (Late st Contact Info) Description 10/26/2024 11:30 AM CDT Appointment [facility] Outpatient Services [place] [address] [place] [phone] 01/14/2025 2:00 PM CDT Office Visit [facility] Family Medicine [place] [address] [place] [phone] Joan De Paz AUTOMOBILE DESIGNER [address] [place] [phone] 02/10/2025 11:30 AM CDT Appointment [facility] Echo [address] [place] [address] Gallito Lance MD [address] [place] [phone] 02/10/2025 1:00 PM CDT Office Visit [facility] [address] [place] [phone] Sarita Oro, [facility] [address] [place] [phone] documented as of this encounter Visit Diagnoses Not on filedocumented in this encounter Additional Health Concerns Infection Onset Date Last Indicated Resolved Time COVID-19 05/11/2021 05/11/2021 05/31/2021 2:22 AM POLYGRAPH EXAMINER R/O Respiratory 06/07/2021 06/07/2021 06/07/2021 1 0:14 PM POLYGRAPH EXAMINER COVID-19 04/18/2023 04/18/2023 05/08/2023 1:16 AM POLYGRAPH EXAMINER R/O C. diff 09/04/2023 09/04/2023 09/04/2023 11:4 7 PM CDT R/O COVID-19 09/04/2023 09/04/2023 09/04/2023 6:46 PM CDT R/O COVID-19 11/11/2023 11/11/2023 11/11/2023 1:08 PM CDT Assessment Noted Time PHQ-9 Depression Total Score: 1 12/14/19 21 11:24 AM CDT documented as of this encounter Care Teams Paper Rewinder Operator Relationship Specialty Start Date End Date Sánchez Macario MD [address] [phone] PCP - General Family Practice 04/10/21 documented as of this encounter
--- OUTSIDE RECORDS SUMMARY | 2024-10-15 12:58 | XMS_ITS | Encounter Summary ---
Author Organization [facility] Address [address] [place] [address] Care Team Providers Care Stereoplotter Operator Name Role Phone Sánchez Macario MD Primary Care Provider [phone] Reason for Visit * Reason Onset Date Comments Results 10/13/2024 Encounter Details Date Type Department Care Team (Late st Contact Info) Description 10/13/2024 Results Follow-Up [facility] [place] [address] [phone] Imani Colbert, [facility] [address] [address] POC URINALYSIS DIPSTICK AUTOMATED, URINE CULTURE Social History Tobacco Use Types Packs/Day Years [...] often do you attend chur ch or presybeterian services? Never 01/05/2020 Do you belong to any clubs o r organizations such as hinduism groups, unions, fraternal or athletic groups, or [...] Master's degree (e.g., MA, MS, Omid, MEd, OUT OF SCHOOL HOURS CARE WORKER, TYSHAWN) 06/05/2021 Comments No Sex and Gender Information Value Date Recorded Sex Assigned at Not on file Legal Sex Female 9:22 AM FBI FIELD AGENT Gender Identity Not on file Sexual Orientation Not on file documented as of this encounter Miscellaneous Notes * Telephone Encounter - Malika Hawkins RN - 10/13/2024 9:08 AM CDT 10/13/2024 9:08 AM Called and notified patients daughter whom is on the PHI of results. Voiced understanding. Malika LESTER * Telephone Encounter - Malika Hawkins RN - 10/13/2024 9:06 AM CDT ----- Message from Imani Brooksmp sent at 10/13/2024 9:02 AM CDT ----- No obvious bacteria in urine culture. Complete 5 days of abx then stop. documented in this encounter Plan of Treatment Upcoming Encounters Date Type Department Care Team (Late st Contact Info) Description 10/26/2024 11:30 AM CDT Appointment [facility] Outpatient Services [place] [address] [facility] [address] [place] [phone] 01/14/2025 2:00 PM CDT Office Visit [facility] Family [facility] [address] [place] [address] Joan De Paz SOLUTION PROFESSIONAL [address] [place] [address] 02/10/2025 11:30 AM CDT Appointment [facility] [place] [address] [place] [address] Gallito Lance MD [address] [facility] [address] [place] [phone] 02/10/2025 1:00 PM CDT Office Visit [facility] [address] [facility] [address] [place] [phone] Sarita Oro, [facility] [address] [facility] [address] [place] [phone] documented as of this encounter Visit Diagnoses Not on filedocumented in this encounter Additional Health Concerns Assessment Noted Time PHQ-9 Depression Total Score: 1 07/02/19 25 2:44 PM CDT documented as of this encounter Care Teams Stereoplotter Operator Relationship Specialty Start Date End Date Sánchez Macario MD [address] [facility] [address] [place] [phone] PCP - General Family Practice 04/10/21 documented as of this encounter
--- OUTSIDE RECORDS SUMMARY | 2024-10-15 12:58 | XMS_ITS | Encounter Summary ---
Author Organization [facility] Address [address] [place] [address] Care Team Providers Care Clothing Trades Workers Name Role Phone Sánchez Macario MD Primary Care Provider [phone] [phone] Encounter Details Date Type Department Care Team [...] often do you attend chur ch or alevism services? Never 01/05/2020 Do you belong to [...] on file Legal Sex Female 9:22 AM CRIME SCENE INVESTIGATOR Gender Identity Not on file Sexual Orientation Not on file COVID-19 Exposure Response Date Recorded In the last month, have you been in contact with someone who was confirmed or suspected to have Coronavirus / COVID-19? Yes 05/18/2021 1:41 PM CRIME SCENE INVESTIGATOR documented as of this encounter Plan of Treatment Upcoming Encounters Date Type Department Care Team (Late st Contact Info) Description 10/26/2024 11:30 AM CDT Appointment [facility] Outpatient Services [place] [address] [place] [phone] 01/14/2025 2:00 PM CDT Office Visit [facility] [place] [address] [place] [phone] Joan De Paz [employer] [address] [place] [phone] 02/10/2025 11:30 AM CDT Appointment [facility] [place] [address] [place] [address] Gallito Lance MD [address] [place] [phone] 02/10/2025 1:00 PM CDT Office Visit [facility] [address] [place] [phone] Sarita Oro, [facility] [address] [place] [phone] documented as of this encounter Visit Diagnoses Not on filedocumented in this encounter Additional Health Concerns Infection Onset Date Last Indicated Resolved Time COVID-19 05/11/2021 05/11/2021 05/31/2021 2:22 AM CRIME SCENE INVESTIGATOR R/O Respiratory 06/07/2021 06/07/2021 06/07/2021 1 0:14 PM CRIME SCENE INVESTIGATOR COVID-19 04/18/2023 04/18/2023 05/08/2023 1:16 AM CRIME SCENE INVESTIGATOR R/O C. diff 09/04/2023 09/04/2023 09/04/2023 11:4 7 PM CDT R/O COVID-19 09/04/2023 09/04/2023 09/04/2023 6:46 PM CDT R/O COVID-19 11/11/2023 11/11/2023 11/11/2023 1:08 PM CDT Assessment Noted Time PHQ-9 Depression Total Score: 1 12/14/19 21 11:24 AM CDT documented as of this encounter Care Teams Clothing Trades Workers Relationship Specialty Start Date End Date Sánchez Macario MD [address] [phone] PCP - General Family Practice 04/10/21 documented as of this encounter
--- NOTE | 2024-10-15 14:24 | CTR_ITS ---
PROCEDURE INFORMATION: Exam: CT Head Without Contrast Exam date and time: 10/15/2024 2:43 PM Age: 84 years old Clinical indication: Injury or trauma; Fall; Blunt trauma (contusions or hematomas); Injury details: HX of breast cancer; Additional info: Vertigo. Multiple falls TECHNIQUE: Imaging protocol: Computed tomography of the head without contrast. Radiation optimization: All CT scans at this facility use at least one of these dose optimization techniques: automated exposure control; mA and/or kV adjustment per patient size (includes targeted exams where dose is matched to clinical indication); or iterative reconstruction. COMPARISON: CT head wo con* [id number] 10/08/2024 6:52 PM RADIATION DOSE METRICS: Total DLP (mGy-cm): 1064.18 FINDINGS: Brain: No intracranial hemorrhage. There is global parenchymal volume loss. Periventricular white matter hypoattenuation is nonspecific but most likely due to small vessel disease. No evidence of acute territorial infarct or cerebral edema. No mass effect or midline shift. Cerebral ventricles: Prominent ventricles likely secondary to volume loss. Paranasal sinuses: Visualized sinuses are unremarkable. No fluid levels. Mastoid air cells: Visualized mastoid air cells are well aerated. Bones: Unremarkable. No acute fracture. Soft tissues: Unremarkable. CT/CT head wo con* [id number] IMPRESSION: No acute intracranial findings.
[2024-10-15 14:27] VITALS: BP 128/70; PULSE 74; RESP 16; O2SAT 97
--- NOTE | 2024-10-15 15:07 | W.ED.DIZZY ---
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 She said comes and goes at has made her almost fall a couple times recently. No head injuries. No other injuries. No altered mental status. No focal motor deficits. Related Data Home Medications ?Medication ?Instructions ?Recorded ?Confirmed meclizine 25 mg tablet 25 mg PO TID PRN Dizziness 12/28/19 09/22/24 potassium chloride 10 mEq 10 meq PO DAILY 12/28/19 09/22/24 capsule,extended release tolterodine 4 mg capsule,extended 4 mg PO DAILY 12/28/19 09/22/24 release 24 hr denosumab 60 mg/mL subcutaneous 60 mg SUBCUT Q6M 06/26/20 09/22/24 syringe ([place]) cyanocobalamin (vitamin B-12) 2,500 mcg PO DAILY 07/19/21 09/22/24 2,500 mcg tablet fluoxetine 40 mg capsule 40 mg PO DAILY 12/08/23 09/22/24 lorazepam 0.5 mg tablet 0.5 mg PO DAILY 12/08/23 09/22/24 budesonide 0.5 mg/2 mL suspension 0.5 mg inhalation BID PRN 12/15/23 09/22/24 for nebulization Shortness Of Breath ropinirole 0.25 mg tablet 0.25 mg PO DAILY 12/15/23 09/22/24 levothyroxine 125 mcg tablet 125 mcg PO DAILY 03/15/24 09/22/24 tizanidine 2 mg tablet 2 mg PO DAILY 03/15/24 09/22/24 acetaminophen 325 mg tablet 325 mg PO QID PRN Pain 04/22/24 09/22/24 fluticasone 250 mcg-salmeterol 50 1 inh inhalation BID 04/22/24 09/22/24 mcg/dose blistr powdr for inhalation (Advair Diskus) Previous Rx's ?Medication ?Instructions ?Recorded Nebulizer and accessory kit #1 ea 02/05/23 custom inserts #1 ea 08/06/23 apixaban 5 mg tablet (Eliquis) 5 mg PO BID #60 tabs 09/11/23 hydrocortisone 10 mg tablet 10 mg PO QPM #30 tabs 04/25/24 hydrocortisone 10 mg tablet 20 mg (2 x 10 mg) PO DAILY #60 tabs 04/25/24 albuterol sulfate 90 mcg/actuation 2 inh inhalation Q4H PRN shortness 10/08/24 aerosol inhaler of breath or wheezing #6.7 grams lorazepam 0.5 mg tablet (Ativan) 0.5 mg PO DAILY PRN vertigo #14 10/15/24 tabs meclizine 25 mg tablet 25 mg PO QID PRN dizziness #20 tabs 10/15/24 Allergies Allergy/AdvReac Type Severity Reaction Status Date / Time tetanus toxoid, adsorbed Allergy Severe unknown Verified 10/15/24 12:51 ciprofloxacin (From Cipro) Allergy Unknown ADR-Vomitin Verified 10/15/24 12:51 g erythromycin base Allergy Unknown ADR-Vomitin Verified 10/15/24 12:51 g gabapentin (From Neurontin) Allergy Unknown unknown Verified 10/15/24 12:51 hydrocodone (From Vicodin) Allergy Unknown unknown Verified 10/15/24 12:51 Influenza Virus Vaccines Allergy Unknown unknown Verified 10/15/24 12:51 tramadol (From Ultram) Allergy Unknown unknown Verified 10/15/24 12:51 aspirin Allergy stomach Verified 10/15/24 12:51 pain, unbearable egg Allergy unknown Verified 10/15/24 12:51 Fish Containing Products Allergy ALGY-Rash Verified 10/15/24 12:51 NSAIDS (Non-Steroidal Allergy heartburn, Verified 10/15/24 12:51 Anti-Inflamma stomach pain Tetanus Vaccines and Toxoid Allergy unknown Verified 10/15/24 12:51 adhesive AdvReac Unknown unknown Verified 10/15/24 12:51 Review of Systems Narrative: Constitutional symptoms: Negative except as documented in HPI. Skin symptoms: Negative except as documented in HPI. Eye symptoms: Negative except as documented in HPI. ENMT symptoms: Negative except as documented in HPI. Respiratory symptoms: Negative except as documented in HPI. Cardiovascular symptoms: Negative except as documented in HPI. Gastrointestinal symptoms: Negative except as documented in HPI. Genitourinary symptoms: Negative except as documented in HPI. Musculoskeletal symptoms: Negative except as documented in HPI. Neurologic symptoms: Negative except as documented in HPI. Psychiatric symptoms: Negative except as documented in HPI. Endocrine symptoms: Negative except as documented in HPI. 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 Primary osteoarthritis of left knee Iron deficiency anemia Dyslipidemia Port-A-Cath in place placed 12/2022 Adrenal insufficiency hospital stay 08/2023 Reversible airway obstruction Lesion of right [place] ureter History of recurrent UTI (urinary tract infection) Pulmonary nodules Interstitial lung disease Asthma Breast cancer Hydronephrosis of right kidney Osteoporosis Arthritis Aortic stenosis Hypertension DVT (deep venous thrombosis) Pulmonary embolism Obesity Surgical History History of cardiac catheterization 07/2023 no obstructive disease Hx of tubal ligation Hx of cystoscopy Hx of colonoscopy Age 65 Hx of cholecystectomy H/O: hysterectomy Hx of cataract surgery S/P tonsillectomy Family History Father , AT 92 Congestive heart failure (CHF) Mother , AT 100 of unknown cause Other CAD (coronary artery disease) Cancer Diabetes Hyperlipidemia Hypertension Stroke Denies family history of Psychiatric illness Chronic kidney disease (CKD) Suicide Family history of premature coronary artery disease Lung disease Social History Smoking and tobacco/nicotine status: never used tobacco/nicotine Alcohol intake: never Substance/Drug Use: never Marital status: / Current occupational status: retired and disabled Physical Exam Narrative: EXAM NARRATIVE: General: Alert, no acute distress. Skin: Warm, dry. Head: Normocephalic, atraumatic. Neck: Supple, trachea midline. Eye: Extraocular movements are intact. Ears, nose, mouth and throat: mucosa moist. Cardiovascular: Regular, Normal peripheral perfusion. Respiratory: Lungs are clear to auscultation, respirations are non-labored, breath sounds are equal, Symmetrical chest wall expansion. Gastrointestinal: Soft, Nontender, Non distended Musculoskeletal: Normal ROM, no deformity. Neurological: Alert and oriented, No focal neurological deficit observed. Psychiatric: Cooperative, appropriate mood & affect. Course Vital Signs: Vital signs: Vital Signs Temperature 97.8 F 10/15/24 12:46 Pulse Rate 78 10/15/24 15:34 Respiratory Rate 16 10/15/24 15:34 Blood Pressure 107/81 10/15/24 15:34 Pulse Oximetry 96 10/15/24 15:34 Oxygen Delivery Me thod Room Air 10/15/24 12:46 MDM - Dizziness Medical Decision Making Medical decision making: Differential diagnosis including but not limited to and based on the above HPI, review of systems and physical exam: for patient with complaint of dizziness: stroke, hypotension, hypertension, infection, vertigo, orthostasis Orders placed to evaluate differential diagnosis based on the above differential, HPI and physical exam CT head: No acute intracranial process. no intracranial hemorrhage, no evidence of infarct. no evidence of acute fracture.This was reviewed and interpreted by myself the ER physician. Assessment and plan: Vertigo ? Meclizine and Ativan at home. - Discharged home - Discussed plan with patient. Answered any questions. - Evaluation and treatment of this problem were appropriate in the emergency setting. Lab Data Radiology Impressions Head CT 10/15/24 14:24 IMPRESSION: No acute intracranial findings. All radiology interpretation(s) finalized by discharge Discharge Plan Discharge Patient Disposition: Home Clinical Impression: Vertigo Condition: Stable Prescriptions: New lorazepam [Ativan] 0.5 mg tablet 0.5 mg PO DAILY PRN (Reason: vertigo) Qty: 14 0RF meclizine 25 mg tablet 25 mg PO QID PRN (Reason: dizziness) Qty: 20 0RF No Action meclizine 25 mg tablet 25 mg PO TID PRN (Reason: Dizziness) tolterodine 4 mg capsule,extended release 24hr 4 mg PO DAILY potassium chloride 10 mEq capsule, extended release 10 meq PO DAILY Prolia 60 mg/mL syringe 60 mg SUBCUT Q6M cyanocobalamin (vitamin B-12) 2,500 mcg tablet 2,500 mcg PO DAILY (DME) Nebulizer and accessory kit See Rx Instructions .Route .MEDSUPPLY Qty: 1 0RF Patient Comments: Patient states that they do not have the machine. Rx Instructions: As directed (DME) custom inserts See Rx Instructions .Route .MEDSUPPLY Qty: 1 0RF Rx Instructions: As directed tizanidine 2 mg tablet 2 mg PO DAILY levothyroxine 125 mcg tablet 125 mcg PO DAILY Eliquis 5 mg tablet 5 mg PO BID Qty: 60 0RF fluoxetine 40 mg capsule 40 mg PO DAILY lorazepam 0.5 mg tablet 0.5 mg PO DAILY budesonide 0.5 mg/2 mL suspension for nebulization 0.5 mg inhalation BID PRN (Reason: Shortness Of Breath) ropinirole 0.25 mg tablet 0.25 mg PO DAILY acetaminophen 325 mg Tablet 325 mg PO QID PRN (Reason: Pain) fluticasone propion-salmeterol [Advair Diskus] 250-50 mcg/dose blister with device 1 inh INHALATION BID hydrocortisone 10 mg Tablet 10 mg PO QPM Qty: 30 0RF hydrocortisone 10 mg Tablet 20 mg PO DAILY Qty: 60 0RF albuterol sulfate 90 mcg/actuation HFA aerosol inhaler 2 inh INHALATION Q4H PRN (Reason: shortness of breath or wheezing) Qty: 6.7 1RF Discharge Orders: Discharge ED (Routine); Ordered 10/15/24 Ordered By: Ese Mayes Referrals: Sáncehz Macario [Primary Care Provider, Family Practice] Discharge Diet: Usual diet Discharge Activity: Increase activity as tolerated Patient Instructions: Benign Paroxysmal Positional Vertigo (ED), Opioid Safety, Pain Management, Patient Portal & Zhanna Instructions Activity Restrictions/Additional Instructions: Thank you for choosing [facility] for your healthcare needs today. You have been screened and evaluated and felt safe for discharge. Health conditions do change or evolve sometimes and as such it is important that you follow up with your Primary Doctor to be re checked, 3-5 days is a general good time frame for follow up. You are always welcome to return to the ED for re assessment if your symptoms are worsening or you have new concerns Print Language: Micronesian Coding Level of Care Code ED Accounting System Expert for Malu Cooper
[2024-10-15 15:34] VITALS: BP 107/81; PULSE 78; RESP 16; O2SAT 96
[2024-10-15 16:29] VITALS: BP 126/76; PULSE 80; RESP 16; O2SAT 98
== END 2024-10-15 16:34 | disposition home or self-care (01) ==
PROVIDERS: Emergency Provider Emergency Medicine; PCP Family Medicine
DX: R42 Dizziness and giddiness (principal); Z79.01 Long term (current) use of anticoagulants; Z85.3 Personal history of malignant neoplasm of breast; I10 Essential (primary) hypertension
CPT/HCPCS: 70450; 99284

== ENCOUNTER 2024-10-20 10:50 | Oncology outpatient (recurring) (ONCR) | payer MEDICARE, MEDICAID, SELFPAY ==
[2024-10-20 11:15] LABS: Hematocrit 37.7 % (36-47); Hemoglobin 12.40 g/dL (11.27-16.99); Mean Corpuscular HGB Conc 32.9 g/dL (30-55); Mean Corpuscular Hemoglobin 32.0 pg (27-33); Mean Corpuscular Volume 97.2 fl (85-98); Nucleated Red Blood Cells % 0 %; Platelet Count 248 10^3/cmm (157-399); Red Blood Count 3.88 10^6/uL (3.85-5.65); White Blood Count 6.12 10^3/uL (3.29-11.43)
[2024-10-20 11:44] LABS: Alanine Aminotransferase 15 U/L (0-33); Albumin Level 3.6 g/dL (3.5-5.2); Alkaline Phosphatase 74 U/L (35-105); Anion Gap 17.2 (5-19); Aspartate Amino Transferase 25 U/L (0-32); Blood Urea Nitrogen 16 mg/dL (8-23); Calcium 9.5 mg/dL (8.5-10.5); Carbon Dioxide 21 mmol/L (22-29); Chloride 101 mmol/L (98-107); Creatinine Clr Calc Pharmacy 52.5248; Globulin 3.0 g/dL (1.3-4.6); Glucose 96 mg/dL (65-115); Osmolality Calculated 281 mOsm/kg (285-295); Potassium 4.2 mmol/L (3.5-5.1); Sodium 135 mmol/L (136-145); Thyroid Stimulating Hormone 11.43 uIU/mL (0.27-4.20); Total Protein 6.6 g/dL (6.6-8.7)
[2024-10-20] MEDS: pembrolizumab 200 MG in sodium chloride 0.9% 250 ML 516 MG IV (12:50)
[2024-10-20 13:27] VITALS: BP 117/74; PULSE 92; RESP 16; TEMP 35.8
== END 2024-10-20 23:59 | disposition home or self-care (01) ==
PROVIDERS: PCP Family Medicine; Visit Provider Nurse Practitioner Family
DX: Z51.12 Encounter for antineoplastic immunotherapy (principal); C50.412 Malignant neoplasm of upper-outer quadrant of left female breast; Z17.1 Estrogen receptor negative status [ER-]; E03.9 Hypothyroidism, unspecified; R42 Dizziness and giddiness; Z79.899 Other long term (current) drug therapy
CPT/HCPCS: 80053; 84443; 85025; 96413; 99214; A4222; J7050; J9271

== ENCOUNTER 2024-10-25 09:06 | Emergency (ER) | payer MEDICARE, MEDICAID, SELFPAY ==
[2024-10-25 09:08] VITALS: BP 152/120; PULSE 117; RESP 16; TEMP 36.7; O2SAT 95; BMI 33.9
--- NOTE | 2024-10-25 09:10 | XR_ITS ---
WS: [id number] Exam: XR chest 1V portable [id number] Date/Time of Exam: 10/25/2024 9:10 AM Reason For Exam: Nausea vomiting Comparison 10/08/2024. Again noted are bilateral soft tissue nodules in both lungs. The lungs are fully expanded and otherwise clear. No infiltrates. The mediastinum is normal in contour. Normal heart size. No pleural effusion. A RIGHT subclavian port in at the cavoatrial junction. Cardiac valve replacement. Bony structures are intact. Surgical clips along the LEFT axilla. XR/XR chest 1V portable [id number] IMPRESSION: 1. Numerous soft tissue nodules in both lungs. Very little change since the las t study. 2. No acute infiltrate. Additional nonacute findings as noted above.
--- NOTE | 2024-10-25 09:12 | W.ED.DIZZY ---
HPI - Dizziness General: Chief Complaint: Dizziness Stated Complaint: n/v, dizziness Time Seen by Provider: 10/25/24 09:08 History of Present Illness: HPI Narrative: 84-year-old female presents emergency room with complaint of dizziness and shortness of breath. She has been having episodes of vomiting this have been going on for the last several days she has had a productive cough as well. She denies chest or abdominal pain at this time. No vomiting or diarrhea. Associated symptoms: Denies chest pain or chills Related Data Home Medications ?Medication ?Instructions ?Recorded ?Confirmed meclizine 25 mg tablet 25 mg PO TID PRN Dizziness 12/28/19 11/02/24 potassium chloride 10 mEq 10 meq PO DAILY 12/28/19 11/02/24 capsule,extended release tolterodine 4 mg capsule,extended 4 mg PO DAILY 12/28/19 11/02/24 release 24 hr denosumab 60 mg/mL subcutaneous 60 mg SUBCUT Q6M 06/26/20 11/02/24 syringe (ditloia) cyanocobalamin (vitamin B-12) 2,500 mcg PO DAILY 07/19/21 11/02/24 2,500 mcg tablet fluoxetine 40 mg capsule 40 mg PO DAILY 12/08/23 11/02/24 lorazepam 0.5 mg tablet 0.5 mg PO DAILY 12/08/23 11/02/24 budesonide 0.5 mg/2 mL suspension 0.5 mg inhalation BID PRN 12/15/23 11/02/24 for nebulization Shortness Of Breath ropinirole 0.25 mg tablet 0.25 mg PO DAILY 12/15/23 11/02/24 tizanidine 2 mg tablet 2 mg PO DAILY 03/15/24 11/02/24 acetaminophen 325 mg tablet 325 mg PO QID PRN Pain 04/22/24 11/02/24 fluticasone 250 mcg-salmeterol 50 1 inh inhalation BID 04/22/24 11/02/24 mcg/dose blistr powdr for inhalation (Advair Diskus) Previous Rx's ?Medication ?Instructions ?Recorded Nebulizer and accessory kit #1 ea 02/05/23 custom inserts #1 ea 08/06/23 apixaban 5 mg tablet (Eliquis) 5 mg PO BID #60 tabs 09/11/23 hydrocortisone 10 mg tablet 10 mg PO QPM #30 tabs 04/25/24 hydrocortisone 10 mg tablet 20 mg (2 x 10 mg) PO DAILY #60 tabs 04/25/24 albuterol sulfate 90 mcg/actuation 2 inh inhalation Q4H PRN shortness 10/08/24 aerosol inhaler of breath or wheezing #6.7 grams lorazepam 0.5 mg tablet (Ativan) 0.5 mg PO DAILY PRN vertigo #14 10/15/24 tabs meclizine 25 mg tablet 25 mg PO QID PRN dizziness #20 tabs 10/15/24 levothyroxine 150 mcg capsule 150 mcg PO DAILY #30 caps 10/20/24 lorazepam 1 mg tablet (Ativan) 1 mg PO Q8H PRN anxiety #10 tabs 10/25/24 Allergies Allergy/AdvReac Type Severity Reaction Status Date / Time tetanus toxoid, adsorbed Allergy Severe unknown Verified 11/02/24 10:14 ciprofloxacin (From Cipro) Allergy Unknown ADR-Vomitin Verified 11/02/24 10:14 g erythromycin base Allergy Unknown ADR-Vomitin Verified 11/02/24 10:14 g gabapentin (From Neurontin) Allergy Unknown unknown Verified 11/02/24 10:14 hydrocodone (From Vicodin) Allergy Unknown unknown Verified 11/02/24 10:14 Influenza Virus Vaccines Allergy Unknown unknown Verified 11/02/24 10:14 tramadol (From Ultram) Allergy Unknown unknown Verified 11/02/24 10:14 aspirin Allergy stomach Verified 11/02/24 10:14 pain, unbearable egg Allergy unknown Verified 11/02/24 10:14 Fish Containing Products Allergy ALGY-Rash Verified 11/02/24 10:14 NSAIDS (Non-Steroidal Allergy heartburn, Verified 11/02/24 10:14 Anti-Inflamma stomach pain Tetanus Vaccines and Toxoid Allergy unknown Verified 11/02/24 10:14 adhesive AdvReac Unknown unknown Verified 11/02/24 10:14 Review of Systems Const: Denies: fever(s) or chills Card: Denies: chest pain Resp: Denies: dyspnea GI: Denies: abdominal pain : Denies: dysuria, urinary frequency or urinary urgency Musc: Denies: neck pain or back pain Skin/Breast: Denies: rash PFSH ED PFSH: Medical History 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 Hypothyroidism COVID-2021 History of echocardiogram 06/2023 EF 60%, Grade I/IV diastolic dysfunction, severe AV stenosis 0.99, mean gradient 40.2 mmHg, peak velocity 4.19 ms 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 Primary osteoarthritis of left knee Iron deficiency anemia Dyslipidemia Port-A-Cath in place placed 12/2022 Adrenal insufficiency hospital stay 08/2023 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 History of recurrent UTI (urinary tract infection) Pulmonary nodules Interstitial lung disease Asthma Breast cancer Hydronephrosis of right kidney Osteoporosis Arthritis Aortic stenosis Hypertension DVT (deep venous thrombosis) Pulmonary embolism Obesity Surgical History History of cardiac catheterization 07/2023 no obstructive disease Hx of tubal ligation Hx of cystoscopy Hx of colonoscopy Age 65 Hx of cholecystectomy H/O: hysterectomy Hx of cataract surgery S/P tonsillectomy Family History Father , AT 92 Congestive heart failure (CHF) Mother , AT 100 of unknown cause Other CAD (coronary artery disease) Cancer Diabetes Hyperlipidemia Hypertension Stroke Denies family history of Psychiatric illness Chronic kidney disease (CKD) Suicide Family history of premature coronary artery disease Lung disease Social History Smoking and tobacco/nicotine status: never used tobacco/nicotine Alcohol intake: never Substance/Drug Use: never Marital status: / Current occupational status: retired and disabled Physical Exam Const: COMMON NORMALS: no acute distress GENERAL APPEARANCE: cooperative and comfortable ORIENTATION/CONSCIOUSNESS: Yes awake, Yes oriented to person, Yes oriented to place and Yes oriented to time HENMT: COMMON NORMALS: normocephalic, atraumatic and hearing grossly normal bilaterally HEAD & SCALP: normocephalic and atraumatic Resp: COMMON NORMALS: normal respiratory effort, No retractions, No use of accessory muscles and clear to auscultation bilaterally AUSCULTATION: clear to auscultation bilaterally Cardio: COMMON NORMALS: regular rate, regular rhythm and No murmurs present (Cardio) RATE: regular rate RHYTHM: regular rhythm GI: COMMON NORMALS: Soft to palpation and No hepatosplenomegaly present AUSCULTATION: Yes normoactive bowel sounds PALPATION: Yes Soft to palpation, No Tenderness to palpation present (GI), No Guarding due to palpation present (GI) and Yes No hepatosplenomegaly present Extremity: COMMON NORMALS: normal to inspection, capillary refill normal, no clubbing, cyanosis or edema, no calf tenderness and no pedal edema Neuro: SENSORIUM/ORIENTATION: Yes oriented to person, Yes oriented to place and Yes oriented to time Skin: COMMON NORMALS: no rashes or lesions noted GENERAL SKIN EXAM: no rashes or lesions noted Course Vital Signs: Vital signs: Vital Signs Temperature 98.1 F 10/25/24 09:08 Pulse Rate 113 H 10/25/24 13:53 Respiratory Rate 16 10/25/24 11:00 Blood Pressure 114/88 10/25/24 13:53 Pulse Oximetry 93 10/25/24 13:53 Oxygen Delivery Me thod Room Air 10/25/24 11:00 MDM - Dizziness Medical Decision Making Neurologically intact no focal deficit noted patient was hyperventilating when she arrived no other symptoms found. Laboratory tests otherwise unremarkable beyond her ABG showing hyperventilation lactic acid was elevated but that decreased. No signs of infection and she has no leukocytosis. Will discharge patient home have her follow-up with oncology as previously planned. Lab Data 10/25/24 10:07 10/25/24 10:07 Radiology Impressions Chest X-Ray 10/25/24 09:10 IMPRESSION: 1. Numerous soft tissue nodules in both lungs. Very little change since the last study. 2. No acute infiltrate. Additional nonacute findings as noted above. Head CT 10/25/24 09:22 IMPRESSION: 1. Diffuse atrophy and some volume loss. 2. No indication of intracranial mass, bleed or acute process. Laboratory Results WBC 7.92 10^3/uL (3.29-11.43) 10/25/24 10:07 RBC 3.65 10^6/uL (3.85-5.65) L 10/25/24 10:07 Hgb 11.60 g/dL (11.27-16.99) 10/25/24 10:07 Hct 36.1 % (36-47) 10/25/24 10:07 MCV 98.9 fl (85-98) H 10/25/24 10:07 MCH 31.8 pg (27-33) 10/25/24 10:07 MCHC 32.1 g/dL (30-55) 10/25/24 10:07 RDW 13.2 % (12.1-15.1) 10/25/24 10:07 Plt Count 205 10^3/cmm (157-399) 10/25/24 10:07 MPV 9.3 fL (7.4-10.4) 10/25/24 10:07 Neut % (Auto) 86.5 % 10/25/24 10:07 Lymph % (Auto) 5.2 % 10/25/24 10:07 [place] % (Auto) 4.9 % 10/25/24 10:07 Eos % (Auto) 2.7 % 10/25/24 10:07 Baso % (Auto) 0.3 % 10/25/24 10:07 Neut # (Auto) 6.86 10^3/uL (1.8-7.7) 10/25/24 10:07 Lymph # (Auto) 0.4 10^3/uL (0.8-4.8) L 10/25/24 10:07 [place] # (Auto) 0.4 10^3/uL (0.2-0.9) 10/25/24 10:07 Eos # (Auto) 0.2 10^3/uL (0.0-0.8) 10/25/24 10:07 Baso # (Auto) 0.0 10^3/uL (0.0-0.1) 10/25/24 10:07 Nucleated RBC % (auto) 0 % 10/25/24 10:07 Nucleated RBCs # 0.0 /100WBC 10/25/24 10:07 PT 16.80 SECONDS (12.1-14.9) H 10/25/24 10:07 INR 1.27 (0.8-1.2) H 10/25/24 10:07 Specimen Type Arterial 10/25/24 09:43 Sample Site Radial, right 10/25/24 09:43 ABG pH 7.63 (7.35-7.45) H* 10/25/24 09:43 ABG pCO2 16.1 mmHg (35-45) L* 10/25/24 09:43 ABG pO2 76.7 mmHg (80.0-100.0) L 10/25/24 09:43 ABG PO2/FiO2 Ratio 365 10/25/24 09:43 ABG HCO3 16.8 mmol/L (22-26) L 10/25/24 09:43 ABG O2 Saturation 98.4 10/25/24 09:43 ABG Base Excess -1.7 mmol/L (-2.0-2.0) 10/25/24 09:43 Maurice Test Pos 10/25/24 09:43 A-a O2 Gradient 6.6 mmHg (5-10) 10/25/24 09:43 Hematocrit 39.1 % (37-47) 10/25/24 09:43 Hgb O2 Saturation 97.2 % (95-100) 10/25/24 09:43 Carboxyhemoglobin 0.8 %THgb (0.4-20.1) 10/25/24 09:43 Methemoglobin 0.3 % (0.4-1.5) L 10/25/24 09:43 Total Hemoglobin 12.7 g/dL (12-16) 10/25/24 09:43 Sodium 138.0 mmol/L (131-143) 10/25/24 09:43 Potassium 3.5 mmol/L (3.5-5.0) 10/25/24 09:43 Glucose 105.0 mg/dL (70-115) 10/25/24 09:43 Ionized Calcium 1.2 mmol/L (1.1-1.4) 10/25/24 09:43 O2 Delivery Device Room air 10/25/24 09:43 FiO2 21.0 % 10/25/24 09:43 Sorter/Assay Tech ID Walci 10/25/24 09:43 Sodium 138 mmol/L (136-145) 10/25/24 10:07 Potassium 3.7 mmol/L (3.5-5.1) 10/25/24 10:07 Chloride 105 mmol/L (98-107) 10/25/24 10:07 Carbon Dioxide 19 mmol/L (22-29) L 10/25/24 10:07 Anion Gap 17.7 (5-19) 10/25/24 10:07 BUN 20 mg/dL (8-23) 10/25/24 10:07 Creatinine 0.8 mg/dL (0.5-0.9) 10/25/24 10:07 GFR Calculation Not Reportable 10/25/24 10:07 Glucose 88 mg/dL (65-115) 10/25/24 10:07 Calculated Osmolality 288 mOsm/kg (285-295) 10/25/24 10:07 Lactic Acid 3.4 mmol/L (0.5-2.2) H 10/25/24 10:07 Lactic Acid (Sepsis) 2.6 mmol/L (0.5-2.2) H 10/25/24 12:48 Calcium 8.9 mg/dL (8.5-10.5) 10/25/24 10:07 Total Bilirubin 0.4 mg/dL (0.15-1.2) 10/25/24 10:07 AST 19 U/L (0-32) 10/25/24 10:07 ALT 10 U/L (0-33) 10/25/24 10:07 Alkaline Phosphatase 63 U/L (35-105) 10/25/24 10:07 Total Protein 5.9 g/dL (6.6-8.7) L 10/25/24 10:07 Albumin 3.2 g/dL (3.5-5.2) L 10/25/24 10:07 Globulin 2.7 g/dL (1.3-4.6) 10/25/24 10:07 Lipase 23 U/L (13-60) 10/25/24 10:07 Urine Color Yellow (Yellow) 10/25/24 09:59 Urine Appearance Clear (CLEAR) 10/25/24 09:59 Urine pH 6.0 (5-7) 10/25/24 09:59 Ur Specific Bogart 1.021 (1.005-1.030) 10/25/24 09:59 Urine Protein Negative (Negative) 10/25/24 09:59 Urine Glucose (UA) Negative (Normal) 10/25/24 09:59 Urine Ketones Trace (Negative) 10/25/24 09:59 Urine Blood Negative (Negative) 10/25/24 09:59 Urine Nitrate Negative (Negative) 10/25/24 09:59 Urine Bilirubin Negative (Negative) 10/25/24 09:59 Urine Urobilinogen 1.0 mg/dL (Negative) 10/25/24 09:59 Ur Leukocyte Esterase Negative (Negative) 10/25/24 09:59 Urine RBC 0-2 /hpf (0-2) 10/25/24 09:59 Urine WBC 0-5 /hpf (0-5) 10/25/24 09:59 Ur Squamous Epith Cells 0-5 /hpf (0-5) 10/25/24 09:59 Amorphous Sediment Not Reportable 10/25/24 09:59 Urine Bacteria None seen /hpf (NONE) 10/25/24 09:59 Hyaline Casts 0.81 /lpf 10/25/24 09:59 Influenza A (PCR) Negative (Negative) 10/25/24 11:00 Influenza Type B (PCR) Negative (Negative) 10/25/24 11:00 RSV (PCR) Negative (Negative) 10/25/24 11:00 SARS-CoV-2 (PCR) Negative (Negative) 10/25/24 11:00 All radiology interpretation(s) finalized by discharge Discharge Plan Discharge Patient Disposition: Home Clinical Impression: Hyperventilation Condition: Stable Prescriptions: New lorazepam [Ativan] 1 mg tablet 1 mg PO Q8H PRN (Reason: anxiety) Qty: 10 0RF No Action meclizine 25 mg tablet 25 mg PO TID PRN (Reason: Dizziness) tolterodine 4 mg capsule,extended release 24hr 4 mg PO DAILY potassium chloride 10 mEq capsule, extended release 10 meq PO DAILY Prolia 60 mg/mL syringe 60 mg SUBCUT Q6M cyanocobalamin (vitamin B-12) 2,500 mcg tablet 2,500 mcg PO DAILY (DME) Nebulizer and accessory kit See Rx Instructions .Route .MEDSUPPLY Qty: 1 0RF Patient Comments: Patient states that they do not have the machine. Rx Instructions: As directed (DME) custom inserts See Rx Instructions .Route .MEDSUPPLY Qty: 1 0RF Rx Instructions: As directed levothyroxine 150 mcg capsule 150 mcg PO DAILY Qty: 30 6RF tizanidine 2 mg tablet 2 mg PO DAILY Eliquis 5 mg tablet 5 mg PO BID Qty: 60 0RF fluoxetine 40 mg capsule 40 mg PO DAILY lorazepam 0.5 mg tablet 0.5 mg PO DAILY budesonide 0.5 mg/2 mL suspension for nebulization 0.5 mg inhalation BID PRN (Reason: Shortness Of Breath) tamikorole 0.25 mg tablet 0.25 mg PO DAILY acetaminophen 325 mg Tablet 325 mg PO QID PRN (Reason: Pain) fluticasone propion-salmeterol [Advair Diskus] 250-50 mcg/dose blister with device 1 inh INHALATION BID hydrocortisone 10 mg Tablet 10 mg PO QPM Qty: 30 0RF hydrocortisone 10 mg Tablet 20 mg PO DAILY Qty: 60 0RF albuterol sulfate 90 mcg/actuation HFA aerosol inhaler 2 inh INHALATION Q4H PRN (Reason: shortness of breath or wheezing) Qty: 6.7 1RF lorazepam [Ativan] 0.5 mg tablet 0.5 mg PO DAILY PRN (Reason: vertigo) Qty: 14 0RF meclizine 25 mg tablet 25 mg PO QID PRN (Reason: dizziness) Qty: 20 0RF Discharge Orders: Discharge ED (Routine); Ordered 10/25/24 Ordered By: Yordan Stewart Referrals: Sánchez Macario [Primary Care Provider, Family Practice] Discharge Diet: Usual diet Discharge Activity: Increase activity as tolerated Patient Instructions: Opioid Safety, Pain Management, Patient Portal & Zhanna Instructions Activity Restrictions/Additional Instructions: Thank you for choosing [facility] for your healthcare needs today. It is very important that you follow up as instructed or that you return to the Emergency Department should you have concerns or if your condition changes or worsens in any way. You were seen in the emergency room with complaints of dizziness nausea and vomiting. Your vital signs remained stable you did show signs of hyperventilation on your laboratories first arrived no other significant abnormalities urine was normal chest x-ray normal. He did have an elevation of her lactic acidosis with her is no other sign of infection and is trending down after IV fluids. Will discharge home you can use lorazepam 1 every 8 hours as needed for anxiety follow-up with your primary care doctor return if you have further problems. Print Language: [place] Coding Level of Care Code ED Process Control Tech for Malu Cooper
--- OUTSIDE RECORDS SUMMARY | 2024-10-25 09:15 | XMS_ITS ---
Author Organization [facility] Address [address] [place] [address] [address] [place] [address] Care Team Providers Care Leather Grainer Name Role Phone Sánchez Macario MD Primary Care Provider [phone] Active Problems Problem Noted Date Diagnosed Date [...] from 03/27/2024:Stage IIIB(cT3, cN0, cM0, G3, ER-, NV-, HER2-) - Signed by Vale Palacios DO on 03/27/2024 Pathologic stage from 06/08/2024:Stage IIIA(pT3, pN0(sn), cM0, G3, ER-, NV-, HER2-) - Signed by Cristina Soto MD [...]
--- OUTSIDE RECORDS SUMMARY | 2024-10-25 09:15 | XMS_ITS | Encounter Summary ---
Author Organization [facility] Address [address] [place] [address] Care Team Providers Care Latin Dancer Name Role Phone Sánchez Macario MD Primary Care Provider [phone] Encounter Details Date Type Department Care Team [...] often do you attend chur ch or evangelical services? Never 01/05/2020 Do you belong to any clubs o r organizations such as druze groups, unions, fraternal or athletic groups, or [...] on file Legal Sex Female 9:22 AM STRATEGIC PLANNING SPECIALIST Gender Identity Not on file Sexual Orientation Not on file COVID-19 Exposure Response Date Recorded In the last month, have you been in contact with someone who was confirmed or suspected to have Coronavirus / COVID-19? No / Unsure 05/11/2021 10:11 AM STRATEGIC PLANNING SPECIALIST documented as of this encounter Plan of Treatment Upcoming Encounters Date Type Department Care Team (Late st Contact Info) Description 10/26/2024 11:30 AM CDT Appointment [facility] [place] [address] [place] [phone] 01/14/2025 2:00 PM CDT Office Visit [facility] [place] [address] [place] [address] [place] [phone] Joan De Paz [facility] [address] [place] [phone] 02/10/2025 11:30 AM CDT Appointment [facility] [address] [place] [address] Gallito Lance MD [address] [place] [phone] 02/10/2025 1:00 PM CDT Office Visit [facility] [address] [place] [phone] Sarita Oro, MOTION STUDY ENGINEER [address] [facility] [address] [place] [phone] documented as of this encounter Visit Diagnoses Not on filedocumented in this encounter Additional Health Concerns Infection Onset Date Last Indicated Resolved Time COVID-19 05/11/2021 05/11/2021 05/31/2021 2:22 AM STRATEGIC PLANNING SPECIALIST R/O Respiratory 06/07/2021 06/07/2021 06/07/2021 1 0:14 PM STRATEGIC PLANNING SPECIALIST COVID-19 04/18/2023 04/18/2023 05/08/2023 1:16 AM STRATEGIC PLANNING SPECIALIST R/O C. diff 09/04/2023 09/04/2023 09/04/2023 11:4 7 PM CDT R/O COVID-19 09/04/2023 09/04/2023 09/04/2023 6:46 PM CDT R/O COVID-19 11/11/2023 11/11/2023 11/11/2023 1:08 PM CDT Assessment Noted Time PHQ-9 Depression Total Score: 1 12/14/19 11:24 AM CDT documented as of this encounter Care Teams Latin Dancer Relationship Specialty Start Date End Date Sánchez Macario MD [address] [phone] PCP - General Family Practice 04/10/21 documented as of this encounter
--- OUTSIDE RECORDS SUMMARY | 2024-10-25 09:15 | XMS_ITS | Clinical Summary ---
Author Organization [facility] Address [address] [place] [address] [address] [place] [address] Care Team Providers Care Rod Mill Operator Name Role Phone Sánchez Macario MD Primary Care Provider [phone] Allergies Active Allergy Reactions Criticality Noted Date [...] of femoral vein of left lower extremity ([facility]),Postope rative pulmonary embolism, subsequent encounter ([facility]) Bath step for entrance [...] Pain. 10 Tablet 06/04/19 25 2:49 PM TEASELER 025 Active ondansetron (ZOFRAN ODT) 4 mg Tablet, Rapid Dissolve Take 1 Tablet (4 mg) by mouth every 8 hours as needed for Nausea/Emesis. Dissolve tablet on top of tongue, then swallow with saliva. 10 Tablet 1 06/04/19 25 2:49 PM TEASELER 025 Active levothyroxine 137 mcg tabletIndications :Acquired [...] in the evening. 150 Tablet 025 Active meclizine (ANTIVERT) 25 mg tablet TAKE 1 TABLET(25 MG) BY MOUTH THREE TIMES DAILY NEEDED FOR DIZZINESS 90 Tablet 2 024 2024 Discontinued hydrocortisone (CORTEF) 20 mg tablet Take 1 (20 mg) tablet in the AM and 1/2 (10mg) tablet in the evening. 150 Tablet 025 2024 Discontinued(R eorder) sulfamethoxazole- trimethoprim (BACTRIM DS) 800-160 mg tabletIndications :Urinary tract infection without hematuria, site unspecified Take 1 Tablet by mouth 2 times daily for 7 days. 14 Tablet 025 2024 Active Problems Problem Noted Date Diagnosed Date [...] from 03/27/2024:Stage IIIB(cT3, cN0, cM0, G3, ER-, CA-, HER2-) - Signed by Vale Palacios DO on 03/27/2024 Pathologic stage from 06/08/2024:Stage IIIA(pT3, pN0(sn), cM0, G3, ER-, CA-, HER2-) - Signed by Cristina Soto MD [...] Encounters Date Type Department Care Team Description 10/18/[address] [address] Sánchez Macario MD Clinical Consult Before Scheduling; Referral; Patient Communication 10/13/2024 Results Follow-Up [address] [phone] Imani Colbert FNP POC URINALYSIS DIPSTICK AUTOMATED, URINE CULTURE 10/12/2024 External Device Data STL ABSTRACTION Provider, Abstract 10/11/2024 4:00 PM CDT Office Visit [address] [address] Imani Colbert FNP Flank pain (Primary Dx); Urinary tract infection without hematuria, site unspecified; Interstitial lung disease (CMS/HCC); 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 (CMS/HCC); Immunocompromised state 10/11/[address] [address] Sánchez Macario MD Clinical Consult Before Scheduling 10/04/[address] [address] Sánchez Macario MD 09/28/[address] [address] Sánchez Macario MD 09/14/2024 External Device Data STL ABSTRACTION Provider, Abstract 08/17/[address] [address] Sánchez Macario MD Seasonal affective disorder 08/17/2024 [facility] [address] [phone] Joan De Paz FNP Peripheral edema 08/17/[address] [phone] Joan De Paz FNP Peripheral edema 08/10/2024 External Device Data STL ABSTRACTION Provider, Abstract 08/05/[address] [phone] Sánchez Macario MD Primary osteoarthritis of left knee from Last 3 Months Immunizations Immunization Administration Dates Next Due (PREVNAR 20)(6 WKS UP) PNEUM OCOCCAL CONJUGATE VACCINE 20-VALENT (PCV20), POLYSACCHARIDE [id number] CONJUGATE, ADJUVANT 0.5 ML (PF) IM 07/06/2024 [...] often do you attend chur ch or quaker services? Never 01/05/2020 Do you belong to any clubs o r organizations such as christianity groups, unions, fraternal or athletic groups, or [...] Master's degree (e.g., MA, MS, Omid, MEd, FRONT DESK, TYSHAWN) 06/05/2021 Comments No Sex and Gender Information Value Date Recorded Sex Assigned at Not on file Legal Sex Female 9:22 AM TEASELER Gender Identity Not on file Sexual Orientation [...] Info) Description 10/26/2024 11:30 AM CDT Appointment [facility] [place] [address] [place] [phone] 01/14/2025 2:00 PM CDT Office Visit [facility] [place] [address] [place] [address] [place] [address] Joan De Paz [facility] [address] [place] [address] [place] [address] 02/10/2025 11:30 AM CDT Appointment [facility] [place] [address] [place] [address] Gallito Lance MD [address] [address] 02/10/2025 1:00 PM CDT Office Visit [facility] [address] [facility] [address] [place] [phone] Sarita Oro, [facility] [address] [facility] [address] [place] [address] Health Maintenance Due Date Last Done Comments DTAP/TDAP/TD VACCINES (1 - Tdap) 07/09/1959 RSV VACCINE (60+ or ) (1 - 1-dose 75+ series) 07/09/2015 ZOSTER VACCINE (2 of 2) 02/12/2019 12/18/2018, 12/18 [place] ([place]) Preventative Visit/Annual Wellness Visit 04/21/2024 02/04/2024, 09/30/2022, 09/25/2021, Additional history exists INFLUENZA VACCINE (#1) 2024 4, 02/04/2024, 08/13/2023, Additional history exists OSTEOPOROSIS SCREENING 11/09/2028 4, 01/06/2019, 01/06/2019, Additional history exists Colorectal Cancer Screening Discontinued FIT-DNA Q 3 years Discontinued 12/26/2020 PNEUMOCOCCAL VACCINE 50+ YEARS Completed 0 07/06/2024, 09/05/2014, 09/07/2005 COLORECTAL SCREENING Discontinued FIT/FOBT Q 1 year Discontinued Flex Sig/CT Colonography Q 5 years Discontinued Medical Devices Implanted Type Area Care Aide Device Identifier Shelf Expiration Date Model / Serial / Lot Clip Ligating Horizon Red [id number] - [facility] - [id number] Implanted:Qty: 1 on 06/03/2024 by Vale Palacios DO at [facility] Clip Left: Breast [employer] [id number] 02/04/2029 / / [id number] Clip Ligating Horizon Med Ti [id number] - Csc - [id number] Implanted:Qty: 1 on 06/03/2024 by Vale Palacios DO at [facility] Clip Left: Breast TELEFLEX- WECK CLOSURE SYS [id number] 02/04/2029 / / [id number] Clip Ligating Horizon Sm [id number] - [id number] Implanted:Qty: 1 on 06/03/2024 by Vale Palacios DO at [facility] Clip Left: Breast [employer] [id number] 12/30/2026 / / [id number] Clip Ligating Horizon Med Ti 385275 - [facility] - [id number] Implanted:Qty: 1 on 06/03/2024 by Vale Palacios DO at [facility] Clip Left: Breast TELEFLEX- WECK CLOSURE SYS [id number] 11/23/2028 [id number] / / [id number] Clip Ligating Horizon Med Ti 558947 - Csc - [id number] Implanted:Qty: 1 on 06/03/2024 by Vale Palacios DO at [facility] Clip Left: Breast TELEFLEX- WECK CLOSURE SYS [id number] 01/06/2029 [id number] / / [id number] Closure Perclose Prostyle Sut Mediate 53768-50 - [id number] Implanted:Qty: 1 on 02/17/2024 by Gallito Lance MD at [facility] Closure Device Right: Groin FLYNN- VASC DEVICE [id number] 11/18/2025 44563-75 / / [id number] Closure Perclose Prostyle Sut Mediate 99241-43 - [id number] Implanted:Qty: 1 on 02/17/2024 by Gallito Lance MD at [facility] Closure Device Right: Groin FLYNN- VASC DEVICE [id number] 11/18/2025 59681-05 / / [id number] Closure Perclose Prostyle Sut Mediate 67726-34 - [id number] Implanted:Qty: 1 on 02/17/2024 by Gallito Lance MD at [facility] Closure Device Right: Groin FLYNN- VASC DEVICE [id number] 11/18/2025 76527-78 / / [id number] Closure Angioseal 6fr Vip 345566 - [id number] Implanted:Qty: 1 on 02/17/2024 by Gallito Lance MD at [facility] Closure Device Left: Groin TERUMO- CARDIOVASC SYS 09/24/2024 [id number] / / [id number] Vlv Aort Evolut Fx Tavr 26mm Evolutfx-26 - [id number] Implanted:Qty: 1 on 02/17/2024 by Gallito Lance MD at [facility] Valve Left: Heart MEDTRONIC- HEART VALVE [id number] 07/06/2025 EVOLUTFX -26 / [id number] / Procedures Procedure Name Priority Date/Time Associated [...] 3:56 PM CDT) URINE CULTURE SEE NOTE [facility] Comment: CULTURE, URINE, ROUTINE Micro Number: [id number] Test Status: Final Specimen Source: Urine, clean catch Specimen Quality: Adequate Result: Mixed genital palma isolated. These superficial bacteria are not indicative of a urinary tract infection. No further organism identification is warranted on this specimen. If clinically indicated, recollect clean-catch, mid-stream urine and transfer immediately to Urine Culture Transport Tube. Test Performed at: [facility] [address] [place] [address] [place] Mcfarland MD Urine URINE SPECIMEN OBTAINED BY CLEAN CATCH PROCEDURE / Unknown 10/11/2024 3:56 PM CDT 10/12/2024 3:01 AM CDT us Imani Colbert [facility] MICROBIOLOGY - GENERAL ORDElayne SINHA Final Result [facility] [phone] [facility] [address] [place] [address] * (ABNORMAL) POC URINALYSIS DIPSTICK AUTOMATED (10/11/2024 3:40 AM CDT) COLOR UA POC [place](A) Pale to Dark Yellow [facility] CLARITY UA POC Turbid(A) Clear, Other [facility] GLUCOSE UA POC Trace(A) Negative, Normal [facility] BILIRUBIN UA POC 1+(A) Negative [facility] UA POC 1+(A) Negative [facility] SPECIFIC GRAVITY UA POC 1.025 1.000 - 1.030 [facility] BLOOD UA POC 1+(A) Negative [facility] C LINIC [facility] PH UA POC 5.0 5.0 - 8.0 [facility] IC [facility] PROTEIN UA POC 1+(A) Negative [facility] UROBILINOGEN UA POC 1.0 <2.0 mg/dL [facility] NITRITE UA POC Positive( A) Negative [facility] LEUKOCYTE ESTERASE UA POC Trace(A) Negative [facility] KIT LOT NUMBER POC [phone] [facility] KIT EXP DATE POC [facility] Urine 10/11/2024 3:40 AM CDT Imani Colbert TECHNICAL CUSTOMER SUPPORT SPECIALIST POINT OF CARE TESTING Final Result [facility] CLIA# [id number] [address] [place] [address] * (ABNORMAL) XR DEXA BONE DENSITY AXIAL [...] clinical management available online at [email or web address] Enter AbilTo for Select DXA and the Femoral Neck [...] clinical management available online at [email or web address] Enter AbilTo for Select DXA and the Femoral Neck BMD value. Sánchez Macario MD DIAGNOSTIC IMAGING ORDERA BLES Final Result * COLON CANCER SCREEN, STOOL DNA (12/26/2020 2:45 PM CDT) Pathologist [facility] COLOGUARD RESULT Negative Negative EXA Copybar Comment: NEGATIVE TEST RESULT. A negative Cologuard [...] screened with both Cologuard and colonoscopy. (Piotr Christopher et al, N Engl J Med 2014;370(14):5593-2941) The normal value (reference range) for this assay is negative. COLOGUARD RE-SCREENING RECOMMENDATION: Periodic colorectal cancer screening is an important part of preventive healthcare for asymptomatic individuals at average risk for colorectal cancer. Following a negative Cologuard result, the [place] Cancer Society and U.S. Multi-Society Task Force screening guidelines recommend a Cologuard re-screening interval of 3 years. References: [place] [employer] Guideline for Colorectal Cancer Screening: https://www.cancer.org/cancer/xtzlt-wqniwr-exqxpi/asdwmexbn-thmyddyrc-kklazst/ac s-rec ommendations.html.; Varun DK, May CR, Denisse JassoK, Colorectal Cancer Screening: Recommendations for Physicians and Patients from the U.S. Multi-Society Task Force on Colorectal Cancer Screening , Am J Gastroenterology 2017; 112:8242-2161. TEST DESCRIPTION: Composite algorithmic analysis of stool [...] screened with both Cologuard and colonoscopy. (Piotr Christopher et al, N Engl J Med 2014;370(14):6451-1396.) Cologuard may produce a false negative or false positive result (no colorectal cancer or precancerous polyp present at colonoscopy follow up). A negative Cologuard test result does not guarantee the absence of CRC or advanced adenoma (pre-cancer). The current Cologuard screening interval is every 3 years. ([place] [employer] Society and U.S. Multi-Society Task Force). Cologuard performance data in a 10,000 patient pivotal study using colonoscopy as the reference method can be accessed at the following location: www.Envoimoinscher/results. Additional description of the Cologuard test process, warnings and precautions can be found at [email or web address] [email or web address]. Stool STOOL SPECIMEN / Unknown 12/26/2020 2:45 PM CDT 12/28/2020 12:18 AM CDT Jorgito RIVERA BODY FLUIDS AND STOOLS Final Result [place] # [id number] [address] [facility] [place] [address] from Last 3 Months or Most Recently Relevant to Health Maintenance Insurance MEDICAID [place] [facility] DUAL ADVANTAGE O [facility] Medicare Part D Advance Directives For more information, please contact: [phone] Documents on File Type Date Recorded Patient Telemetry Tech Expl anation Advance Directive POA 06/17/2016 12:16 [...] 2:42 AM 06/07/2021 6:46 PM Care Teams Rod Mill Operator Relationship Specialty Start Date End Date Sánchez Macario MD [address] [address] PCP - General Family Practice 04/10/21
--- OUTSIDE RECORDS SUMMARY | 2024-10-25 09:15 | XMS_ITS | Encounter Summary ---
Author Organization [facility] Address [address] [place] [address] Care Team Providers Care Director Of Surgery Name Role Phone Sánchez Macario MD Primary Care Provider [phone] Encounter Details Date Type Department Care Team [...] often do you attend chur ch or taoism services? Never 01/05/2020 Do you belong to any clubs o r organizations such as pentecostal groups, unions, fraternal or athletic groups, or [...] on file Legal Sex Female 9:22 AM SPARE HAND CARDING Gender Identity Not on file Sexual Orientation Not on file COVID-19 Exposure Response Date Recorded In the last month, have you been in contact with someone who was confirmed or suspected to have Coronavirus / COVID-19? Yes 05/18/2021 1:41 PM SPARE HAND CARDING documented as of this encounter Plan of Treatment Upcoming Encounters Date Type Department Care Team (Late st Contact Info) Description 10/26/2024 11:30 AM CDT Appointment [facility] [place] [address] [place] [phone] 01/14/2025 2:00 PM CDT Office Visit [facility] Family Medicine [place] [address] [place] [phone] Joan De Paz ATMOSPHERIC SCIENCES PROFESSOR [address] [place] [phone] 02/10/2025 11:30 AM CDT Appointment [facility] [address] [place] [address] Gallito Lance MD [address] [place] [address] 02/10/2025 1:00 PM CDT Office Visit [facility] [address] [place] [phone] Sarita Oro, [facility] [address] [place] [address] documented as of this encounter Visit Diagnoses Not on filedocumented in this encounter Additional Health Concerns Infection Onset Date Last Indicated Resolved Time COVID-19 05/11/2021 05/11/2021 05/31/2021 2:22 AM SPARE HAND CARDING R/O Respiratory 06/07/2021 06/07/2021 06/07/2021 1 0:14 PM SPARE HAND CARDING COVID-19 04/18/2023 04/18/2023 05/08/2023 1:16 AM SPARE HAND CARDING R/O C. diff 09/04/2023 09/04/2023 09/04/2023 11:4 7 PM CDT R/O COVID-19 09/04/2023 09/04/2023 09/04/2023 6:46 PM CDT R/O COVID-19 11/11/2023 11/11/2023 11/11/2023 1:08 PM CDT Assessment Noted Time PHQ-9 Depression Total Score: 1 12/14/19 21 11:24 AM CDT documented as of this encounter Care Teams Director Of Surgery Relationship Specialty Start Date End Date Sánchez Macario MD [address] [phone] PCP - General Family Practice 04/10/21 documented as of this encounter
--- OUTSIDE RECORDS SUMMARY | 2024-10-25 09:15 | XMS_ITS | Encounter Summary ---
Author Organization [facility] Address [address] [place] [address] Care Team Providers Care Psychological Operations Specialist Name Role Phone Sánchez Macario MD Primary Care Provider [phone] Encounter Details Date Type Department Care Team [...] often do you attend chur ch or anabaptist services? Never 01/05/2020 Do you belong to any clubs o r organizations such as jewish groups, unions, fraternal or athletic groups, or [...] on file Legal Sex Female 9:22 AM BILLING ADMINISTRATOR Gender Identity Not on file Sexual Orientation Not on file COVID-19 Exposure Response Date Recorded In the last month, have you been in contact with someone who was confirmed or suspected to have Coronavirus / COVID-19? Yes 05/18/2021 1:41 PM BILLING ADMINISTRATOR documented as of this encounter Plan of Treatment Upcoming Encounters Date Type Department Care Team (Late st Contact Info) Description 10/26/2024 11:30 AM CDT Appointment [facility] Out[facility] [place] [address] [place] [phone] 01/14/2025 2:00 PM CDT Office Visit [facility] Family Medicine [place] [address] [place] [phone] Joan De Paz TRANSITIONAL KINDERGARTEN TEACHER [address] [place] [phone] 02/10/2025 11:30 AM CDT Appointment [facility] [address] [place] [address] Gallito Lance MD [address] [place] [address] 02/10/2025 1:00 PM CDT Office Visit [facility] [address] [place] [phone] Sarita Oro, [facility] [address] [place] [address] documented as of this encounter Visit Diagnoses Not on filedocumented in this encounter Additional Health Concerns Infection Onset Date Last Indicated Resolved Time COVID-19 05/11/2021 05/11/2021 05/31/2021 2:22 AM BILLING ADMINISTRATOR R/O Respiratory 06/07/2021 06/07/2021 06/07/2021 1 0:14 PM BILLING ADMINISTRATOR COVID-19 04/18/2023 04/18/2023 05/08/2023 1:16 AM BILLING ADMINISTRATOR R/O C. diff 09/04/2023 09/04/2023 09/04/2023 11:4 7 PM CDT R/O COVID-19 09/04/2023 09/04/2023 09/04/2023 6:46 PM CDT R/O COVID-19 11/11/2023 11/11/2023 11/11/2023 1:08 PM CDT Assessment Noted Time PHQ-9 Depression Total Score: 1 12/14/19 21 11:24 AM CDT documented as of this encounter Care Teams Psychological Operations Specialist Relationship Specialty Start Date End Date Sánchez Macario MD [address] [phone] PCP - General Family Practice 04/10/21 documented as of this encounter
--- OUTSIDE RECORDS SUMMARY | 2024-10-25 09:15 | XMS_ITS | Encounter Summary ---
Author Organization [facility] Address [address] [place] [address] Care Team Providers Care Port Steward Name Role Phone Sánchez Macario MD Primary Care Provider [phone] [phone] Reason for Referral * Physical Therapy (Routine) - Pending Review Specialty Diagnoses / Procedures Referred By Contmarilynn t Referred To Contact Physical Therapy Diagnoses Vertigo Sánchez Macario MD [address] [address] Phone: tel: fax: [facility] [place] [address] [place] [address] Phone: tel: fax: Referral ID Status Reason Start Date Expiration Date V isits Requested Visits Authorized [id number] Pending Review 10/19/2024 10/19/2025 10 10 Reason for Visit * Reason Comments Clinical Consult Before Scheduling Referral Patient Communication Encounter Details Date Type Department Care Team (Late st Contact Info) Description 10/18/2024 Telephone [facility] [place] [address] [address] Sánchez Macario MD [address] [address] Clinical Consult Before Scheduling; Referral; Patient Communication Social History Tobacco Use Types Packs/Day Years [...] often do you attend chur ch or mormon services? Never 01/05/2020 Do you belong to any clubs o r organizations such as yazidi groups, unions, fraternal or athletic groups, or [...] Master's degree (e.g., MA, MS, Omid, MEd, SUPERVISOR KEYMODULE ASSEMBLY, TYSHAWN) 06/05/2021 Comments No Sex and Gender Information Value Date Recorded Sex Assigned at Not on file Legal Sex Female 9:22 AM VACUUM APPLICATOR OPERATOR Gender Identity Not on file Sexual Orientation Not on file documented as of this encounter Miscellaneous Notes * Telephone Encounter - Thomas Gonzalez - 10/20/2024 4:21 PM CDT Copied from CRM #[id number]. Topic: CPA Information Request >> Oct 20, 2024 4:20 PM Thomas Harvey wrote: Caller is returning phone call from clinic. Caller Name: daughter Patient/Caregiver Callback Number: Telephone Information: Mobile Not on file. Clinic Left Note In Chart Is there a note from the clinic requesting the caller be transferred when they call back? No Are the credentials of the caregiver who called the patient merchandiser seasonal? Yes Call Notes: Communicated information that is documented in the note. Caller does not want a call back from clinic. * Telephone Encounter - Kaitlin Odom LPN - 10/20/2024 8:52 AM CDT 10/20/2024 8:52 AM Returned call. No answer. Left voice mail/message to return our call. If patient/caregiver calls back, contact center Please let patient's daughter know that she can contact [facility] at [phone] regarding placement for patient. Kaitlin CACERES * Telephone Encounter - Clara Herman - 10/19/2024 11:34 AM CDT Copied from CRM #[id number]. Topic: Patient or Caregiver Communication Request >> Oct 19, 2024 11:29 AM Clara Montiel wrote: Patient or Caregiver calling to update Care team on status after a recent visit Caller: Radha(Daughter) Patient/Caregiver Callback Number: [phone] Call Notes: Radha is wanting to know if it is possible for her mom to go to the [facility] for 2 weeks for physical therapy? She states that she has done this before and did well with it. She is requesting a call back. * Telephone Encounter - Malika Hawkins RN - 10/19/2024 8:32 AM CDT 10/19/2024 8:32 AM Returned call and spoke with patient. Advised per provider: Referral ordered for vestibular therapy, we will find the closest available therapist trained in this specific type of therapy. Voiced understanding. Malika LESTER * Telephone Encounter - Inés Garcia LPN - 10/18/2024 10:56 AM CDT 10/18/2024 10:56 AM Adult patient complains of dizziness: Onset of new/worsening symptoms: Patient reports has been to ER in [place] and they did Ct of head and chest with negative results. She states the ER docs have told her she has Vertigo and needs PT to try and get over this. States the room is spinning and she usually falls to the left. Request to have PT in [place]. Dizziness is best described as: [x] Room is spinning [] Lightheaded [x] Generalized off balance: What causes the dizziness: [] Moving from lying to sitting position [] Moving from sitting to standing position [] Having a bowel movement [] Going up stairs [x] Turning head [] Exertional activity [] Not doing anything The patient has the following symptoms or concerns: [] Dimming vision [] Visual floaters [] Speech change [x] Confusion [] Syncopal episode [] Drowsiness [] Headaches [] Paresthesias [] History of HTN Recent home BP reading: [] History of hypotension Recent home BP reading: [] BP meds (high or low) Medication information: [] New medications or medication changes during the week before symptoms started Medication information including date of change: [] Has tried medication or treatment at home Medications/Treatments tried: Other pertinent information: / Status: Patient likely cannot become . Appointment not scheduled. Requests provider to advise Inés CACERES * Telephone Encounter - Airam Olmstead - 10/18/2024 10:55 AM CDT Copied from [facility] #[id number]. Topic: Symptomatic Care >> Oct 18, 2024 10:48 AM Airam Palacios wrote: Has this patient seen any provider (current or former) at the requested clinic in the past? Yes, Select the appropriate age range and symptom Patient has symptoms and is seeking care. Caller Name: Janet Calvillo Callback Number: Telephone Information: Mobile Not on file. Call Notes: Age Range/Symptom: Adult 18+ - Patient said she fell three times last week and hit her head each time. Transferred to [facility] line and Inés answered call. documented in this encounter Plan of Treatment Upcoming Encounters Date Type Department Care Team (Late st Contact Info) Description 10/26/2024 11:30 AM CDT Appointment [facility] [place] [address] [place] [phone] 01/14/2025 2:00 PM CDT Office Visit [facility] [place] [address] [place] [address] [place] [phone] Joan De Paz FNP [address] [place] [address] 02/10/2025 11:30 AM CDT Appointment [facility] [place] [address] [place] [address] Gallito Lance MD [address] [place] [address] 02/10/2025 1:00 PM CDT Office Visit [facility] [address] [place] [address] Sarita Oro, [facility] [address] [place] [address] Scheduled Referrals Name Type Priority Associated Diagnoses Orde r Schedule AMB REFERRAL TO PHYSICAL THERAPY Outpatient Referral Routine Vertigo Ordered: 10/19/2024 documented as of this encounter Visit Diagnoses Diagnosis Vertigo- Primary Dizziness and giddiness documented in this encounter Additional Health Concerns Assessment Noted Time PHQ-9 Depression Total Score: 1 07/02/19 25 2:44 PM CDT documented as of this encounter Care Teams Port Steward Relationship Specialty Start Date End Date Sánchez Macario MD [address] [facility] [address] [place] [phone] PCP - General Family Practice 04/10/21 documented as of this encounter
--- OUTSIDE RECORDS SUMMARY | 2024-10-25 09:15 | XMS_ITS | Clinical Summary ---
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 Never 01/05/2020 Do you belong to any clubs o r organizations such as gnosticist groups, unions, fraternal or athletic groups, or [...] Master's degree (e.g., MA, MS, Omid, MEd, COMMUNICATIONS SUPERINTENDENT, TYSHAWN) 01/05/2020 Comments No Sex and Gender Information Value Date Recorded Sex Assigned at Not on file Legal Sex Female 5:07 AM WHEEL PRESSER Gender Identity Not on file Sexual Orientation [...] ) (1 - 1-dose 75+ series) 07/09/2015 Medicare Advantage ([place]) Preventative Visit/Annual Wellness Visit 04/21/2024 01/05/2020, 12/23/2018, 10/03/2017, Additional history exists INFLUENZA VACCINE (#1) 2024 0, 03/11/2019, 06/03/2016 OSTEOPOROSIS SCREENING 11/09/2028 4, 01/06/2019, 02/03/2014, Additional [...] clinical management available online at [email or web address] Enter Qriously for Select DXA and the Femoral Neck [...] clinical management available online at [email or web address] Enter Qriously for Select DXA and the Femoral Neck BMD value. [facility] ORDERABLES Final Result from Last 3 Months or Most Recently Relevant to Health Maintenance Insurance [place] Advance Directives For more information, please contact: [phone] Documents on File Type Date Recorded Patient New Home Sales Consultant Expl anation Advance Directive POA 06/17/2016 12:15 PM Advance Directive POA Care Teams Manager Logistic Relationship Specialty Start Date End Date Fabiola Soto MD [address] [phone] PCP - General Family Practice 05/27/13
--- OUTSIDE RECORDS SUMMARY | 2024-10-25 09:15 | XMS_ITS | Encounter Summary ---
Author Organization [facility] Address [address] [place] [address] Care Team Providers Care Tooth Cutter Contact Wheel Name Role Phone Sánchez Macario MD Primary Care Provider [phone] Encounter Details Date Type Department Care Team [...] often do you attend chur ch or hoahaoism services? Never 01/05/2020 Do you belong to any clubs o r organizations such as moravian groups, unions, fraternal or athletic groups, or [...] on file Legal Sex Female 9:22 AM EMPLOYEE RELATION MANAGER Gender Identity Not on file Sexual Orientation Not on file COVID-19 Exposure Response Date Recorded In the last month, have you been in contact with someone who was confirmed or suspected to have Coronavirus / COVID-19? Yes 05/18/2021 1:41 PM EMPLOYEE RELATION MANAGER documented as of this encounter Plan of Treatment Upcoming Encounters Date Type Department Care Team (Late st Contact Info) Description 10/26/2024 11:30 AM CDT Appointment [facility] [place] [address] [place] [phone] 01/14/2025 2:00 PM CDT Office Visit [facility] [place] [address] [place] [phone] [address] De Paz MAINTENANCE OF WAY SUPERVISOR [address] [place] [phone] 02/10/2025 11:30 AM CDT Appointment [facility] [place] [address] [place] [address] Gallito Lance MD [address] [place] [address] 02/10/2025 1:00 PM CDT Office Visit [facility] [address] [place] [address] Sarita Oro, [facility] [address] [place] [address] documented as of this encounter Visit Diagnoses Not on filedocumented in this encounter Additional Health Concerns Infection Onset Date Last Indicated Resolved Time COVID-19 05/11/2021 05/11/2021 05/31/2021 2:22 AM EMPLOYEE RELATION MANAGER R/O Respiratory 06/07/2021 06/07/2021 06/07/2021 1 0:14 PM EMPLOYEE RELATION MANAGER COVID-19 04/18/2023 04/18/2023 05/08/2023 1:16 AM EMPLOYEE RELATION MANAGER R/O C. diff 09/04/2023 09/04/2023 09/04/2023 11:4 7 PM CDT R/O COVID-19 09/04/2023 09/04/2023 09/04/2023 6:46 PM CDT R/O COVID-19 11/11/2023 11/11/2023 11/11/2023 1:08 PM CDT Assessment Noted Time PHQ-9 Depression Total Score: 1 12/14/19 21 11:24 AM CDT documented as of this encounter Care Teams Tooth Cutter Contact Wheel Relationship Specialty Start Date End Date Sánchez Macario MD [address] [phone] PCP - General Family Practice 04/10/21 documented as of this encounter
--- OUTSIDE RECORDS SUMMARY | 2024-10-25 09:15 | XMS_ITS | Encounter Summary ---
Author Organization [facility] Address [address] [place] [address] Care Team Providers Care Family Assistant Name Role Phone Sánchez Macario MD Primary Care Provider [phone] [phone] Encounter Details Date Type Department Care Team [...] often do you attend chur ch or yazdanism services? Never 01/05/2020 Do you belong to any clubs o r organizations such as religion groups, unions, fraternal or athletic groups, or [...] on file Legal Sex Female 9:22 AM ELECTRICIAN APPRENTICE POWERHOUSE Gender Identity Not on file Sexual Orientation Not on file COVID-19 Exposure Response Date Recorded In the last month, have you been in contact with someone who was confirmed or suspected to have Coronavirus / COVID-19? Yes 05/18/2021 1:41 PM ELECTRICIAN APPRENTICE POWERHOUSE documented as of this encounter Plan of Treatment Upcoming Encounters Date Type Department Care Team (Late st Contact Info) Description 10/26/2024 11:30 AM CDT Appointment [facility] [place] [address] [place] [phone] 01/14/2025 2:00 PM CDT Office Visit [facility] [place] [address] [place] [phone] Joan eD Paz WEB METHODS DEVELOPER [address] [place] [phone] 02/10/2025 11:30 AM CDT Appointment [facility] [place] [address] [place] [address] Gallito Lance MD [address] [place] [address] 02/10/2025 1:00 PM CDT Office Visit [facility] [address] [place] [address] Sarita Oro, [facility] [address] [place] [phone] documented as of this encounter Visit Diagnoses Not on filedocumented in this encounter Additional Health Concerns Infection Onset Date Last Indicated Resolved Time COVID-19 05/11/2021 05/11/2021 05/31/2021 2:22 AM ELECTRICIAN APPRENTICE POWERHOUSE R/O Respiratory 06/07/2021 06/07/2021 06/07/2021 1 0:14 PM ELECTRICIAN APPRENTICE POWERHOUSE COVID-19 04/18/2023 04/18/2023 05/08/2023 1:16 AM ELECTRICIAN APPRENTICE POWERHOUSE R/O C. diff 09/04/2023 09/04/2023 09/04/2023 11:4 7 PM CDT R/O COVID-19 09/04/2023 09/04/2023 09/04/2023 6:46 PM CDT R/O COVID-19 11/11/2023 11/11/2023 11/11/2023 1:08 PM CDT Assessment Noted Time PHQ-9 Depression Total Score: 1 12/14/19 21 11:24 AM CDT documented as of this encounter Care Teams Family Assistant Relationship Specialty Start Date End Date Sánchez Macario MD [address] [phone] PCP - General Family Practice 04/10/21 documented as of this encounter
--- OUTSIDE RECORDS SUMMARY | 2024-10-25 09:15 | XMS_ITS | Encounter Summary ---
Author Organization [facility] Address [address] [place] [address] Care Team Providers Care Brand Representative Name Role Phone Sánchez Macario MD Primary Care Provider [phone] [phone] Encounter Details Date Type Department Care Team [...] any clubs o r organizations such as mandaeism groups, unions, fraternal or athletic groups, or [...] on file Legal Sex Female 9:22 AM LADLE CAR OPERATOR Gender Identity Not on file Sexual Orientation Not on file COVID-19 Exposure Response Date Recorded In the last month, have you been in contact with someone who was confirmed or suspected to have Coronavirus / COVID-19? Yes 05/18/2021 1:41 PM LADLE CAR OPERATOR documented as of this encounter Plan of Treatment Upcoming Encounters Date Type Department Care Team (Late st Contact Info) Description 10/26/2024 11:30 AM CDT Appointment [facility] [place] [address] [place] [phone] 01/14/2025 2:00 PM CDT Office Visit [facility] [place] [address] [place] [phone] Joan De Paz DECORATING INSPECTOR [address] [place] [phone] 02/10/2025 11:30 AM CDT Appointment [facility] [place] [address] [place] [address] Gallito Lance MD [address] [place] [address] 02/10/2025 1:00 PM CDT Office Visit [facility] [address] [place] [phone] Sarita Oro, [facility] [address] [place] [phone] documented as of this encounter Visit Diagnoses Not on filedocumented in this encounter Additional Health Concerns Infection Onset Date Last Indicated Resolved Time COVID-19 05/11/2021 05/11/2021 05/31/2021 2:22 AM LADLE CAR OPERATOR R/O Respiratory 06/07/2021 06/07/2021 06/07/2021 1 0:14 PM LADLE CAR OPERATOR COVID-19 04/18/2023 04/18/2023 05/08/2023 1:16 AM LADLE CAR OPERATOR R/O C. diff 09/04/2023 09/04/2023 09/04/2023 11:4 7 PM CDT R/O COVID-19 09/04/2023 09/04/2023 09/04/2023 6:46 PM CDT R/O COVID-19 11/11/2023 11/11/2023 11/11/2023 1:08 PM CDT Assessment Noted Time PHQ-9 Depression Total Score: 1 12/14/19 21 11:24 AM CDT documented as of this encounter Care Teams Brand Representative Relationship Specialty Start Date End Date Sánchez Macario MD [address] [phone] PCP - General Family Practice 04/10/21 documented as of this encounter
--- OUTSIDE RECORDS SUMMARY | 2024-10-25 09:15 | XMS_ITS | Encounter Summary ---
Author Organization [facility] Address [address] [place] [address] Care Team Providers Care Sales Effectiveness Manager Name Role Phone Fabiola Soto MD Primary Care Provider [phone] Encounter Details Date Type Department Care Team (Late st Contact Info) Description 09/07/2011 Ancillary Orders [facility] General Laboratory Services [place] [address] [place] [address] Social History Tobacco Use Types Packs/Day Years Used Date Smoking Tobacco: Never Smokeless Tobacco: Never Alcohol Use Standard Drinks/Week Comments Yes 4.2 (1 standard drink = 0.6 oz p ure alcohol) month Comments No Sex and Gender Information Value Date Recorded Sex Assigned at Not on file Legal Sex Female 5:07 AM DIRECTOR OF COMMUNICATIONS Gender Identity Not on file Sexual Orientation [...] - 10.0 K/uL 09/07/2011 3:07 PM CDT [facility] [place] RBC 4.32 3.93 - 5.22 M/uL 09/07/2011 3:07 PM CDT [facility] [place] HEMOGLOBIN 13.3 11.2 - 15.7 g/dL 09/07/2011 3:07 PM CDT [facility] [place] HEMATOCRIT 40.3 34.1 - 44.9 % 09/07/2011 3:07 PM CDT [facility] [place] MCV 93.3 79.4 - 94.8 fL 09/07/2011 3:07 PM CDT [facility] [place] MCH 30.8 25.6 - 32.2 pg 09/07/2011 3:07 PM CDT [facility] [place] MCHC 33.0 32.2 - 35.5 g/dL 09/07/2011 3:07 PM CDT [facility] [place] RDW 13.8 11.0 - 14.5 % 09/07/2011 3:07 PM CDT [facility] [place] RDW-STDEV 46.0 fL 09/07/2011 3:07 PM CDT [facility] [place] PLATELETS 227 163 - 337 K/uL 09/07/2011 3:07 PM CDT [facility] [place] MPV 12.1 10.0 - 14.8 fL 09/07/2011 3:07 PM CDT [facility] [place] NEUTROPHILS 70 34 - 71 % 09/07/2011 3:07 PM CDT [facility] [place] LYMPHOCYTES 17(L) 19 - 52 % 09/07/2011 3:07 PM CDT [facility] [place] MONOCYTES 9 5 - 13 % 09/07/2011 3:07 PM CDT [facility] [place] EOSINOPHILS 5 1 - 6 % 09/07/2011 3:07 PM CDT [facility] [place] BASOPHILS 1 0 - 1 % 09/07/2011 3:07 PM CDT [facility] [place] NEUTROPHIL ABSOLUTE 4.38 1.56 - 6.13 K/uL 09/07/2011 3:07 PM CDT [facility] [place] LYMPHOCYTE ABSOLUTE 1.05(L) 1.20 - 3.40 K/uL 09/07/2011 3:07 PM CDT [facility]ORAT[facility] [place] MONOCYTE ABSOLUTE 0.54(H) 0.24 - 0.36 K/uL 09/07/2011 3:07 PM CDT [facility] [place] EOSINOPHIL ABSOLUTE 0.29 0.04 - 0.36 K/uL 09/07/2011 3:07 PM CDT [facility] [place] BASOPHILS ABSOLUTE 0.03 0.01 - 0.08 K/uL 09/07/2011 3:07 PM CDT [facility] Blood specimen (specimen) 09/07/2011 8:10 AM CDT 09/07/2011 9:21 AM CDT Phillyrupesh Sotomayorray DIRECTOR OF BANDS HEMATOLOGY ORDERA BLES Final Result [facility] CLIA # [id number] [address] [place] [address] * (ABNORMAL) COMPREHENSIVE METABOLIC PANEL (09/07/2011 8:10 AM CDT) SODIUM 141 136 - 145 mmol/L 09/07/2011 5:18 PM CDT [facility] POTASSIUM 3.8 3.5 - 5.1 mmol/L 09/07/2011 5:18 PM CDT [facility] CHLORIDE 106 98 - 107 mmol/L 09/07/2011 5:18 PM CDT [facility] CO2 25 21 - 32 mmol/L 09/07/2011 5:18 PM CDT [facility] CALCIUM 9.1 8.5 - 10.1 mg/dL 09/07/2011 5:18 PM CDT [facility] [place] BUN 17 7 - 18 mg/dL 09/07/2011 5:18 PM CDT [facility] [place] CREATININE 0.80 0.60 - 1.30 mg/dL 09/07/2011 5:18 PM CDT [facility] [place] GLUCOSE 74 74 - 106 mg/dL 09/07/2011 5:18 PM CDT [facility]OR[facility] TOTAL PROTEIN 6.6 6.4 - 8.2 g/dL 09/07/2011 5:18 PM CDT [facility] ALBUMIN 3.3(L) 3.4 - 5.0 g/dL 09/07/2011 5:18 PM CDT [facility] BILIRUBIN TOTAL 0.3 0.2 - 1.0 mg/dL 09/07/2011 5:18 PM CDT [facility] ALKALINE PHOSPHATASE 110 50 - 136 U/L 09/07/2011 5:18 PM T [facility] AST 15 15 - 37 U/L 09/07/2011 5:18 PM CDT [facility] ALT 32 30 - 65 U/L 09/07/2011 5:18 PM CDT [facility] GFR 71 >=60 mL/min/1.7 3 sq meter 09/07/2011 5:18 PM T [facility] GFR, 86 >=60 mL/min/1.7 3 sq meter 09/07/2011 5:18 PM T [facility] Blood specimen (specimen) 09/07/2011 8:10 AM CDT 09/07/2011 9:21 AM CDT Narrative [facility] - 09/07/2011 5:18 PM CDT eGFR has [...] Darling APRN CHEMISTRY ORDERAB LES Final Result [facility] CLIA # [id number] [address] [facility] [address] [place] [address] * (ABNORMAL) LIPID PANEL (09/07/2011 8:10 AM CDT) [facility] Signature CHOLESTEROL 204(H) 130 - 200 mg/dL 09/07/2011 5:18 PM CDT [facility] LABORAT[facility] TRIGLYCERIDE 130 30 - 200 mg/dL 09/07/2011 5:18 PM CDT [facility] HDL 44 35 - 80 mg/dL 09/07/2011 5:18 PM CDT [facility] LDL CALCULATED 134(H) 0 - 100 mg/dL 09/07/2011 5:18 PM CDT [facility] Blood specimen (specimen) 09/07/2011 8:10 AM CDT 09/07/2011 9:21 AM CDT Narrative [facility] LABORATORY [facility] - 09/07/2011 5:18 PM CDT TOTAL CHOLESTEROL [...] ORDERAB LES Final Result Performing Organization Address City/[facility]/ZIP Co de Phone Number [facility] CLIA # [id number] [address] [place] [address] * FERRITIN (09/07/2011 8:10 AM CDT) FERRITIN 81.0 8.0 - 252.0 ng/mL 09/07/2011 6:41 PM CDT [facility] [employer] [facility] Blood specimen (specimen) 09/07/2011 8:10 AM CDT 09/07/2011 9:21 AM CDT [facility] DIRECTOR OF BANDS CHEMISTRY ORDERAB LES Final Result Performing Organization Address City/[facility]/ZIP Co de Phone Number [facility] CLIA # [id number] [address] [place] [address] * IRON LEVEL (09/07/2011 8:10 AM CDT) IRON 58 50 - 170 ug/dL 09/07/2011 6:41 PM CDT [facility] Blood specimen (specimen) 09/07/2011 8:10 AM CDT 09/07/2011 9:21 AM CDT Philly Darling DIRECTOR OF BANDS CHEMISTRY ORDERAB LES Final Result [facility] CLIA # [id number] [address] [address] documented in this encounter Visit Diagnoses Not on filedocumented in this encounter Additional Health Concerns Infection Onset Date Last Indicated Resolved Time R/O C. diff 10/16/2020 10/16/2020 10/16/2020 11:1 0 AM CDT documented as of this encounter Care Teams Sales Effectiveness Manager Relationship Specialty Start Date End Date Fabiola Soto MD [address] [phone] PCP - General Family Practice 05/27/13 documented as of this encounter
--- OUTSIDE RECORDS SUMMARY | 2024-10-25 09:15 | XMS_ITS | Encounter Summary ---
Author Organization [facility] Address [address] [place] [address] Care Team Providers Care Software Engineer Name Role Phone Sánchez Macario MD Primary Care Provider [phone] Encounter Details Date Type Department Care Team [...] often do you attend chur ch or confucianism services? Never 01/05/2020 Do you belong to [...] on file Legal Sex Female 9:22 AM BLENDER/BRAZE APPLICATOR Gender Identity Not on file Sexual Orientation Not on file COVID-19 Exposure Response Date Recorded In the last month, have you been in contact with someone who was confirmed or suspected to have Coronavirus / COVID-19? Yes 05/18/2021 1:41 PM BLENDER/BRAZE APPLICATOR documented as of this encounter Plan of Treatment Upcoming Encounters Date Type Department Care Team (Late st Contact Info) Description 10/26/2024 11:30 AM CDT Appointment [facility] Outpatient Services [place] [address] [place] [phone] 01/14/2025 2:00 PM CDT Office Visit [facility] Family Medicine [place] [address] [place] [phone] Joan De Paz CLINICAL NURSE MANAGER [address] [place] [phone] 02/10/2025 11:30 AM CDT Appointment [facility] [place] [address] [place] [address] Gallito Lance MD [address] [place] [phone] 02/10/2025 1:00 PM CDT Office Visit [facility] [address] [place] [phone] Sarita Oro, [facility] [address] [place] [phone] documented as of this encounter Visit Diagnoses Not on filedocumented in this encounter Additional Health Concerns Infection Onset Date Last Indicated Resolved Time COVID-19 05/11/2021 05/11/2021 05/31/2021 2:22 AM BLENDER/BRAZE APPLICATOR R/O Respiratory 06/07/2021 06/07/2021 06/07/2021 1 0:14 PM BLENDER/BRAZE APPLICATOR COVID-19 04/18/2023 04/18/2023 05/08/2023 1:16 AM BLENDER/BRAZE APPLICATOR R/O C. diff 09/04/2023 09/04/2023 09/04/2023 11:4 7 PM CDT R/O COVID-19 09/04/2023 09/04/2023 09/04/2023 6:46 PM CDT R/O COVID-19 11/11/2023 11/11/2023 11/11/2023 1:08 PM CDT Assessment Noted Time PHQ-9 Depression Total Score: 1 12/14/19 21 11:24 AM CDT documented as of this encounter Care Teams Software Engineer Relationship Specialty Start Date End Date Sánchez Macario MD [address] [phone] PCP - General Family Practice 04/10/21 documented as of this encounter
--- OUTSIDE RECORDS SUMMARY | 2024-10-25 09:15 | XMS_ITS | Encounter Summary ---
Author Organization [facility] Address [address] [place] [address] Care Team Providers Care Principal Strategist Name Role Phone Sánchez Macario MD Primary Care Provider [phone] Encounter Details Date Type Department Care Team [...] often do you attend chur ch or protestant services? Never 01/05/2020 Do you belong to [...] on file Legal Sex Female 9:22 AM WICK AND BASE ASSEMBLER Gender Identity Not on file Sexual Orientation Not on file COVID-19 Exposure Response Date Recorded In the last month, have you been in contact with someone who was confirmed or suspected to have Coronavirus / COVID-19? Yes 05/18/2021 1:41 PM WICK AND BASE ASSEMBLER documented as of this encounter Plan of Treatment Upcoming Encounters Date Type Department Care Team (Late st Contact Info) Description 10/26/2024 11:30 AM CDT Appointment [facility] Outpatient Services [place] [address] [place] [phone] 01/14/2025 2:00 PM CDT Office Visit [facility] Family Medicine [place] [address] [place] [phone] Joan De Paz CLOTH STOCK SORTER [address] [place] [phone] 02/10/2025 11:30 AM CDT Appointment [facility] Echo [address] [place] [address] Gallito Lance MD [address] [place] [phone] 02/10/2025 1:00 PM CDT Office Visit [facility] [address] [place] [phone] Sarita Oro, [facility] [address] [place] [phone] documented as of this encounter Visit Diagnoses Not on filedocumented in this encounter Additional Health Concerns Infection Onset Date Last Indicated Resolved Time COVID-19 05/11/2021 05/11/2021 05/31/2021 2:22 AM WICK AND BASE ASSEMBLER R/O Respiratory 06/07/2021 06/07/2021 06/07/2021 1 0:14 PM WICK AND BASE ASSEMBLER COVID-19 04/18/2023 04/18/2023 05/08/2023 1:16 AM WICK AND BASE ASSEMBLER R/O C. diff 09/04/2023 09/04/2023 09/04/2023 11:4 7 PM CDT R/O COVID-19 09/04/2023 09/04/2023 09/04/2023 6:46 PM CDT R/O COVID-19 11/11/2023 11/11/2023 11/11/2023 1:08 PM CDT Assessment Noted Time PHQ-9 Depression Total Score: 1 12/14/19 21 11:24 AM CDT documented as of this encounter Care Teams Principal Strategist Relationship Specialty Start Date End Date Sánchez Macario MD [address] [phone] PCP - General Family Practice 04/10/21 documented as of this encounter
--- OUTSIDE RECORDS SUMMARY | 2024-10-25 09:15 | XMS_ITS | Encounter Summary ---
Author Organization [facility] Address [address] [place] [address] Care Team Providers Care Combatant Diver Officer Name Role Phone Fabiola Soto MD Primary Care Provider [phone] Encounter Details Date Type Department Care Team (Late st Contact Info) Description 01/20/[address] [facility] [address] [facility] [address] [place] [address] Jorgito Meza PA NO ADDRESS ON FILE Screening for breast cancer Social History Tobacco Use Types Packs/Day Years Used Date Smoking Tobacco: Never Smokeless Tobacco: Never Alcohol Use Standard Drinks/Week Comments No 0 (1 standard drink = 0.6 oz pur e alcohol) Comments No Sex and Gender Information Value Date Recorded Sex Assigned at Not on file Legal Sex Female 5:07 AM TOOL CHECKER Gender Identity Not on file Sexual Orientation [...] documented as of this encounter Care Teams Combatant Diver Officer Relationship Specialty Start Date End Date Fabiola Soto MD [address] [phone] PCP - General Family Practice 05/27/13 documented as of this encounter
--- OUTSIDE RECORDS SUMMARY | 2024-10-25 09:15 | XMS_ITS | Encounter Summary ---
Author Organization [facility] Address [address] [place] [address] Care Team Providers Care Draw Frame Runner Name Role Phone Sánchez Macario MD Primary Care Provider [phone] Encounter Details Date Type Department Care Team [...] often do you attend chur ch or moravian services? Never 01/05/2020 Do you belong to any clubs o r organizations such as episcopalian groups, unions, fraternal or athletic groups, or [...] on file Legal Sex Female 9:22 AM GRAIN BUYER Gender Identity Not on file Sexual Orientation Not on file COVID-19 Exposure Response Date Recorded In the last month, have you been in contact with someone who was confirmed or suspected to have Coronavirus / COVID-19? Yes 05/18/2021 1:41 PM GRAIN BUYER documented as of this encounter Plan of Treatment Upcoming Encounters Date Type Department Care Team (Late st Contact Info) Description 10/26/2024 11:30 AM CDT Appointment [facility] Outpatient Services [place] [address] [place] [phone] 01/14/2025 2:00 PM CDT Office Visit [facility] Family Medicine [place] [address] [place] [phone] Joan De Paz DIRECTOR OF STUDENT LIFE [address] [place] [phone] 02/10/2025 11:30 AM CDT Appointment [facility] Echo [address] [place] [address] Gallito Lance MD [address] [place] [phone] 02/10/2025 1:00 PM CDT Office Visit [facility] [address] [place] [phone] Sarita Oro, [facility] [address] [place] [phone] documented as of this encounter Visit Diagnoses Not on filedocumented in this encounter Additional Health Concerns Infection Onset Date Last Indicated Resolved Time COVID-19 05/11/2021 05/11/2021 05/31/2021 2:22 AM GRAIN BUYER R/O Respiratory 06/07/2021 06/07/2021 06/07/2021 1 0:14 PM GRAIN BUYER COVID-19 04/18/2023 04/18/2023 05/08/2023 1:16 AM GRAIN BUYER R/O C. diff 09/04/2023 09/04/2023 09/04/2023 11:4 7 PM CDT R/O COVID-19 09/04/2023 09/04/2023 09/04/2023 6:46 PM CDT R/O COVID-19 11/11/2023 11/11/2023 11/11/2023 1:08 PM CDT Assessment Noted Time PHQ-9 Depression Total Score: 1 12/14/19 21 11:24 AM CDT documented as of this encounter Care Teams Draw Frame Runner Relationship Specialty Start Date End Date Sánchez Macario MD [address] [phone] PCP - General Family Practice 04/10/21 documented as of this encounter
--- OUTSIDE RECORDS SUMMARY | 2024-10-25 09:15 | XMS_ITS | Encounter Summary ---
Author Organization [facility] Address [address] [place] [address] Care Team Providers Care Asphalt Tar And Gravel Roofer Name Role Phone Sánchez Macario MD Primary Care Provider [phone] Encounter Details Date Type Department Care Team [...] on file Legal Sex Female 9:22 AM VALET SERVICE ATTENDANT Gender Identity Not on file Sexual Orientation Not on file COVID-19 Exposure Response Date Recorded In the last month, have you been in contact with someone who was confirmed or suspected to have Coronavirus / COVID-19? Yes 05/18/2021 1:41 PM VALET SERVICE ATTENDANT documented as of this encounter Plan of Treatment Upcoming Encounters Date Type Department Care Team (Late st Contact Info) Description 10/26/2024 11:[address] [facility] Outpatient Services [place] [address] [place] [phone] 01/14/2025 2:00 PM CDT Office Visit [facility] Family Medicine [employer] [address] [place] [phone] Joan De Paz TAX SERVICES MANAGER [address] [place] [phone] 02/10/2025 11:30 AM CDT Appointment [facility] [place] [address] [place] [address] Gallito Lance MD [address] [place] [phone] 02/10/2025 1:00 PM CDT Office Visit [facility] [address] [place] [phone] Sarita Oro, [facility] [address] [place] [phone] documented as of this encounter Visit Diagnoses Not on filedocumented in this encounter Additional Health Concerns Infection Onset Date Last Indicated Resolved Time COVID-19 05/11/2021 05/11/2021 05/31/2021 2:22 AM VALET SERVICE ATTENDANT R/O Respiratory 06/07/2021 06/07/2021 06/07/2021 1 0:14 PM VALET SERVICE ATTENDANT COVID-19 04/18/2023 04/18/2023 05/08/2023 1:16 AM VALET SERVICE ATTENDANT R/O C. diff 09/04/2023 09/04/2023 09/04/2023 11:4 7 PM CDT R/O COVID-19 09/04/2023 09/04/2023 09/04/2023 6:46 PM CDT R/O COVID-19 11/11/2023 11/11/2023 11/11/2023 1:08 PM CDT Assessment Noted Time PHQ-9 Depression Total Score: 1 12/14/19 21 11:24 AM CDT documented as of this encounter Care Teams Asphalt Tar And Gravel Roofer Relationship Specialty Start Date End Date Sánchez Macario MD [address] [phone] PCP - General Family Practice 04/10/21 documented as of this encounter
--- OUTSIDE RECORDS SUMMARY | 2024-10-25 09:15 | XMS_ITS | Encounter Summary ---
Author Organization [facility] Address [address] [place] [address] Care Team Providers Care Equalizer Operator Name Role Phone Fabiola Soto MD Primary Care Provider [phone] [phone] Encounter Details Date Type Department Care Team (Late st Contact Info) Description 09/18/2013 Ancillary Orders [facility] General Laboratory Services [place] [address] [place] [address] Social History Tobacco Use Types Packs/Day Years Used Date Smoking Tobacco: Never Smokeless Tobacco: Never Alcohol Use Standard Drinks/Week Comments No 0 (1 standard drink = 0.6 oz pur e alcohol) Comments No Sex and Gender Information Value Date Recorded Sex Assigned at Not on file Legal Sex Female 5:07 AM CUSTOMER SERVICE ENGINEER Gender Identity Not on file Sexual [...] - 170 ug/dL 09/18/2013 5:21 PM CDT [facility] [employer] [facility] Blood Collection / Unknown 09/18/2013 12:03 PM CDT 09/18/2013 12:03 PM CDT External Provider Mtnv CHEMISTRY ORDERABLES Jihan l Result Performing Organization Address [facility] Co de Phone Number [facility] [employer] [facility] CLIA # [id number] [address] [place] [address] * CREATININE (09/18/2013 12:03 PM CDT) Pathologist [facility] CREATININE 1.10 0.60 - 1.30 mg/dL 09/18/2013 1:41 PM CDT [facility] [employer] [facility] GFR 49 mL/min/1.7 3 sq meter 09/18/2013 1:41 PM CDT [facility] [employer] [facility] Comment: The GFR result is not clinically significant on patients <18 or >70 years of age. GFR, 59 mL/min/1.7 3 sq meter 09/18/2013 1:41 PM CDT [facility] [employer] [facility] Blood Collection / Unknown 09/18/2013 12:03 PM CDT 09/18/2013 12:03 PM CDT us External Provider Mtnv CHEMISTRY ORDERABLES Jihan l Result Performing Organization Address City/[facility]/ZIP Co de Phone Number [facility] CLIA # [id number] [address] [place] [address] * (ABNORMAL) ALT (09/18/2013 12:03 PM CDT) ALT 20(L) 30 - 65 U/L 09/18/2013 1:41 PM CDT [facility] [place] Blood Collection / Unknown 09/18/2013 12:03 PM CDT 09/18/2013 12:03 PM CDT us External Provider Mtnv CHEMISTRY ORDERABLES Jihan priya Result [facility] [place] CLIA # [id number] 100 [facility] [address] [place] [address] * (ABNORMAL) CBC WITH DIFFERENTIAL (09/18/2013 12:03 PM CDT) WBC 5.7 4.0 - 10.0 K/uL 09/18/2013 12:21 PM CDT [facility] [place] RBC 4.44 3.93 - 5.22 M/uL 09/18/2013 12:21 PM CDT [facility] [place] HEMOGLOBIN 13.6 11.2 - 15.7 g/dL 09/18/2013 12:21 PM CDT [facility] [place] HEMATOCRIT 41.5 34.1 - 44.9 % 09/18/2013 12:21 PM CDT [facility] [place] MCV 93.5 79.4 - 94.8 fL 09/18/2013 12:21 PM CDT [facility] [place] MCH 30.6 25.6 - 32.2 pg 09/18/2013 12:21 PM CDT [facility] [place] MCHC 32.8 32.2 - 35.5 g/dL 09/18/2013 12:21 PM CDT [facility] [place] RDW 13.4 11.0 - 14.5 % 09/18/2013 12:21 PM CDT [facility] [place] RDW-STDEV 44.1 36.9 - 56.9 fL 09/18/2013 12:21 PM CDT [facility] [place] PLATELETS 242 163 - 337 K/uL 09/18/2013 12:21 PM CDT [facility] [place] MPV 12.2 10.0 - 14.8 fL 09/18/2013 12:21 PM CDT [facility] [place] NEUTROPHILS 63 34 - 71 % 09/18/2013 12:21 PM CDT [facility] [place] LYMPHOCYTES 21 19 - 52 % 09/18/2013 12:21 PM CDT [facility] [place] MONOCYTES 10 5 - 13 % 09/18/2013 12:21 PM CDT [facility] [place] EOSINOPHILS 4 1 - 6 % 09/18/2013 12:21 PM CDT [facility] [place] BASOPHILS 1 0 - 1 % 09/18/2013 12:21 PM CDT [facility] [place] NEUTROPHIL ABSOLUTE 3.63 1.56 - 6.13 K/uL 09/18/2013 12:21 PM CDT [facility] [place] LYMPHOCYTE ABSOLUTE 1.21 1.20 - 3.40 K/uL 09/18/2013 12:21 PM CDT [facility] [place] MONOCYTE ABSOLUTE 0.59(H) 0.24 - 0.36 K/uL 09/18/2013 12:21 PM CDT [facility] [place] EOSINOPHIL ABSOLUTE 0.22 0.04 - 0.36 K/uL 09/18/2013 12:21 PM CDT [facility] [place] BASOPHILS ABSOLUTE 0.08 0.01 - 0.08 K/uL 09/18/2013 12:21 PM CDT [facility] [place] IMMATURE GRANULOCYTES 0 % 09/18/2013 12:21 PM CDT [facility] [place] IMMATURE GRANULOCYTES ABSOLUTE 0.00 K/uL 09/18/2013 12:21 PM CDT [facility] [place] Blood Collection / Unknown 09/18/2013 12:03 PM CDT 09/18/2013 12:03 PM CDT us External Provider Mtnv HEMATOLOGY ORDERABLES Fin al Result [facility] [place] CLIA # [id number] [address] [place] [address] * (ABNORMAL) TSH (09/18/2013 12:03 PM CDT) TSH 4.94(H) 0.30 - 4.80 uIU/mL 09/18/2013 1:41 PM CDT [facility] [place] Blood Collection / Unknown 09/18/2013 12:03 PM CDT 09/18/2013 12:03 PM CDT us External Provider Mtnv CHEMISTRY ORDERABLES Jihan l Result Performing Organization Address City/[facility]/ZIP Co de Phone Number [facility] [employer] [facility] CLIA # [id number] [address] [place] [address] * HEMOGLOBIN A1C (09/18/2013 12:03 PM CDT) HEMOGLOBIN A1C 5.7 4.5 - 6.2 % 09/18/2013 1:01 PM CDT [facility] [employer] [facility] EST. AVG GLUCOSE, A1C 117 mg/dL 09/18/2013 1:01 PM CDT [facility] [employer] [facility] Blood Collection / Unknown 09/18/2013 12:03 PM CDT 09/18/2013 12:03 PM CDT External Provider [facility]sn[facility] CHEMISTRY ORDERABLES Jihan l Result Performing Organization Address [facility] Co de Phone Number [facility] [employer] [facility] CLIA # [id number] [address] [place] [address] * (ABNORMAL) LIPID PANEL (09/18/2013 12:03 PM CDT) CHOLESTEROL 235(H) 130 - 200 mg/dL 09/18/2013 1:41 PM CDT [facility] TRIGLYCERIDE 121 30 - 200 mg/dL 09/18/2013 1:41 PM CDT [facility] HDL 51 35 - 80 mg/dL 09/18/2013 1:41 PM CDT [facility] [employer] [facility] LDL CALCULATED 160(H) 0 - 100 mg/dL 09/18/2013 1:41 PM CDT [facility] [employer] [facility] Blood Collection / Unknown 09/18/2013 12:03 PM CDT 09/18/2013 12:03 PM CDT Narrative [facility] [employer] [facility] - 09/18/2013 1:41 PM CDT [...] Jihan l Result [facility] [place] CLIA # [id number] [address] [address] documented in this encounter Visit Diagnoses Not on filedocumented in this encounter Additional Health Concerns Infection Onset Date Last Indicated Resolved Time R/O C. diff 10/16/2020 10/16/2020 10/16/2020 11:1 0 AM CDT documented as of this encounter Care Teams Equalizer Operator Relationship Specialty Start Date End Date Fabiola Soto MD [address] [phone] PCP - General Family Practice 05/27/13 documented as of this encounter
--- OUTSIDE RECORDS SUMMARY | 2024-10-25 09:15 | XMS_ITS | Encounter Summary ---
Author Organization [facility] Address [address] [place] [address] Care Team Providers Care Employment Specialist/Program Manager Name Role Phone Fabiola Soto MD Primary Care Provider [phone] Reason for Referral * Outpatient Services (Routine) - Closed Specialty Diagnoses / Procedures Referred By Cleopatra jimenez Referred To Contact Diagnoses Screening mammogram Procedures MAMMO SCREENING BILAT Philly Darling APRN NO ADDRESS ON FILE Referral ID Status Reason Start Date Expiration Date Visits Re quested Visits Authorized [id number] Closed 10/01/2010 03/30/2011 1 1 Encounter Details Date Type Department Care Team (Late st Contact Info) Description 10/01/2010 Ancillary Orders [facility] Imaging External Read [address] [place] [address] Philly Darling APRN NO ADDRESS ON FILE Screening mammogram Social History Tobacco Use Types Packs/Day Years Used Date Smoking Tobacco: Never Alcohol Use Standard Drinks/Week Comments Yes 4.2 (1 standard drink = 0.6 oz p ure alcohol) month Comments No Sex and Gender Information Value Date Recorded Sex Assigned at Not on file Legal Sex Female 5:07 AM TELEPHONE ANSWERER Gender Identity Not on file Sexual Orientation [...] 09/26/10: Comparison studies are now available from [facility] dated 08/06/06 and 06/27/05. A moderate amount [...] of trying to retrieve prior films from [facility]. Those are not available at the [...] by the Computer Aided Detection system (CAD), DueDiler, Version 3.1. Procedure Note Elizabeth Rosas MD / Kurt Granados MD - 10/15/2010 BILATERAL SCREENING MAMMOGRAM: Bilateral CC and MLO views were obtained. We are in the process of tryingto retrieve prior films from [facility]. Those are not available at thetime [...] analyzed by the Computer Aided Detection system(CAD), [employer] ImageClipCardcker, Version 3.1. IMPRESSION: Incomplete. Obtain priors. If [...] documented as of this encounter Care Teams Employment Specialist/Program Manager Relationship Specialty Start Date End Date Fabiola Soto MD [address] [phone] PCP - General Family Practice 05/27/13 documented as of this encounter
--- OUTSIDE RECORDS SUMMARY | 2024-10-25 09:15 | XMS_ITS | Encounter Summary ---
Author Organization [facility] Address [address] [place] [address] Care Team Providers Care Fireworks Display Specialist Name Role Phone Sánchez Macario MD Primary Care Provider [phone] Encounter Details Date Type Department Care Team [...] often do you attend chur ch or taoist services? Never 01/05/2020 Do you belong to [...] on file Legal Sex Female 9:22 AM LAMP SHADES SUPERVISOR Gender Identity Not on file Sexual Orientation Not on file COVID-19 Exposure Response Date Recorded In the last month, have you been in contact with someone who was confirmed or suspected to have Coronavirus / COVID-19? Yes 05/18/2021 1:41 PM LAMP SHADES SUPERVISOR documented as of this encounter Plan of Treatment Upcoming Encounters Date Type Department Care Team (Late st Contact Info) Description 10/26/2024 11:30 AM CDT Appointment [facility] Outpatient Services [place] [address] [place] [phone] 01/14/2025 2:00 PM CDT Office Visit [facility] Family Medicine [place] [address] [place] [phone] Joan De Paz PRODUCTION SUPPORT SPECIALIST [address] [place] [phone] 02/10/2025 11:30 AM CDT Appointment [facility] Echo [address] [place] [address] Gallito Lance MD [address] [place] [phone] 02/10/2025 1:00 PM CDT Office Visit [facility] [address] [place] [phone] Sarita Oro, [facility] [address] [place] [phone] documented as of this encounter Visit Diagnoses Not on filedocumented in this encounter Additional Health Concerns Infection Onset Date Last Indicated Resolved Time COVID-19 05/11/2021 05/11/2021 05/31/2021 2:22 AM LAMP SHADES SUPERVISOR R/O Respiratory 06/07/2021 06/07/2021 06/07/2021 1 0:14 PM LAMP SHADES SUPERVISOR COVID-19 04/18/2023 04/18/2023 05/08/2023 1:16 AM LAMP SHADES SUPERVISOR R/O C. diff 09/04/2023 09/04/2023 09/04/2023 11:4 7 PM CDT R/O COVID-19 09/04/2023 09/04/2023 09/04/2023 6:46 PM CDT R/O COVID-19 11/11/2023 11/11/2023 11/11/2023 1:08 PM CDT Assessment Noted Time PHQ-9 Depression Total Score: 1 12/14/19 21 11:24 AM CDT documented as of this encounter Care Teams Fireworks Display Specialist Relationship Specialty Start Date End Date Sánchez Macario MD [address] [phone] PCP - General Family Practice 04/10/21 documented as of this encounter
--- OUTSIDE RECORDS SUMMARY | 2024-10-25 09:15 | XMS_ITS | Encounter Summary ---
Author Organization [facility] Address [address] [place] [address] Care Team Providers Care Food Preparer Name Role Phone Sánchez Macario MD Primary Care Provider [phone] Encounter Details Date Type Department Care Team [...] often do you attend chur ch or christianity services? Never 01/05/2020 Do you belong to any clubs o r organizations such as roman catholic groups, unions, fraternal or athletic groups, or [...] on file Legal Sex Female 9:22 AM AGRICULTURAL SALES REPRESENTATIVE Gender Identity Not on file Sexual Orientation Not on file COVID-19 Exposure Response Date Recorded In the last month, have you been in contact with someone who was confirmed or suspected to have Coronavirus / COVID-19? Yes 05/18/2021 1:41 PM AGRICULTURAL SALES REPRESENTATIVE documented as of this encounter Plan of Treatment Upcoming Encounters Date Type Department Care Team (Late st Contact Info) Description 10/26/2024 11:30 AM CDT Appointment [facility] Outpatient Services [place] [address] [place] [phone] 01/14/2025 2:00 PM CDT Office Visit [facility] Family Medicine [place] [address] [place] [phone] Joan De Paz MEDICAL DERMATOLOGIST [address] [place] [phone] 02/10/2025 11:30 AM CDT Appointment [facility] Echo [address] [place] [address] Gallito Lance MD [address] [place] [phone] 02/10/2025 1:00 PM CDT Office Visit [facility] [address] [place] [phone] Sarita Oro, [facility] [address] [place] [phone] documented as of this encounter Visit Diagnoses Not on filedocumented in this encounter Additional Health Concerns Infection Onset Date Last Indicated Resolved Time COVID-19 05/11/2021 05/11/2021 05/31/2021 2:22 AM AGRICULTURAL SALES REPRESENTATIVE R/O Respiratory 06/07/2021 06/07/2021 06/07/2021 1 0:14 PM AGRICULTURAL SALES REPRESENTATIVE COVID-19 04/18/2023 04/18/2023 05/08/2023 1:16 AM AGRICULTURAL SALES REPRESENTATIVE R/O C. diff 09/04/2023 09/04/2023 09/04/2023 11:4 7 PM CDT R/O COVID-19 09/04/2023 09/04/2023 09/04/2023 6:46 PM CDT R/O COVID-19 11/11/2023 11/11/2023 11/11/2023 1:08 PM CDT Assessment Noted Time PHQ-9 Depression Total Score: 1 12/14/19 21 11:24 AM CDT documented as of this encounter Care Teams Food Preparer Relationship Specialty Start Date End Date Sánchez Macario MD [address] [phone] PCP - General Family Practice 04/10/21 documented as of this encounter
--- OUTSIDE RECORDS SUMMARY | 2024-10-25 09:15 | XMS_ITS | Encounter Summary ---
Author Organization [facility] Address [address] [place] [address] Care Team Providers Care Home Energy Inspector Name Role Phone Sánchez Macario MD Primary Care Provider [phone] Encounter Details Date Type Department Care Team [...] any clubs o r organizations such as yazdanism groups, unions, fraternal or athletic groups, or [...] on file Legal Sex Female 9:22 AM CROWN BUFFER Gender Identity Not on file Sexual Orientation Not on file COVID-19 Exposure Response Date Recorded In the last month, have you been in contact with someone who was confirmed or suspected to have Coronavirus / COVID-19? Yes 05/18/2021 1:41 PM CROWN BUFFER documented as of this encounter Plan of Treatment Upcoming Encounters Date Type Department Care Team (Late st Contact Info) Description 10/26/2024 11:30 AM CDT Appointment [facility] Outpatient Services [place] [address] [place] [phone] 01/14/2025 2:00 PM CDT Office Visit [facility] Family Medicine [place] [address] [place] [phone] Joan De Paz GRASS FARMER [address] [place] [phone] 02/10/2025 11:30 AM CDT Appointment [facility] Echo [address] [place] [address] Gallito Lance MD [address] [place] [phone] 02/10/2025 1:00 PM CDT Office Visit [facility] [address] [place] [phone] Sarita Oro, [facility] [address] [place] [phone] documented as of this encounter Visit Diagnoses Not on filedocumented in this encounter Additional Health Concerns Infection Onset Date Last Indicated Resolved Time COVID-19 05/11/2021 05/11/2021 05/31/2021 2:22 AM CROWN BUFFER R/O Respiratory 06/07/2021 06/07/2021 06/07/2021 1 0:14 PM CROWN BUFFER COVID-19 04/18/2023 04/18/2023 05/08/2023 1:16 AM CROWN BUFFER R/O C. diff 09/04/2023 09/04/2023 09/04/2023 11:4 7 PM CDT R/O COVID-19 09/04/2023 09/04/2023 09/04/2023 6:46 PM CDT R/O COVID-19 11/11/2023 11/11/2023 11/11/2023 1:08 PM CDT Assessment Noted Time PHQ-9 Depression Total Score: 1 12/14/19 21 11:24 AM CDT documented as of this encounter Care Teams Home Energy Inspector Relationship Specialty Start Date End Date Sánchez Macario MD [address] [phone] PCP - General Family Practice 04/10/21 documented as of this encounter
--- OUTSIDE RECORDS SUMMARY | 2024-10-25 09:15 | XMS_ITS | Encounter Summary ---
Author Organization [facility] Address [address] [place] [address] Care Team Providers Care Paper Roller Name Role Phone Sánchez Macario MD Primary Care Provider [phone] Encounter Details Date Type Department Care Team [...] often do you attend chur ch or anabaptism services? Never 01/05/2020 Do you belong to [...] on file Legal Sex Female 9:22 AM KNOCKOUT MAN Gender Identity Not on file Sexual Orientation Not on file COVID-19 Exposure Response Date Recorded In the last month, have you been in contact with someone who was confirmed or suspected to have Coronavirus / COVID-19? No / Unsure 05/11/2021 10:11 AM KNOCKOUT MAN documented as of this encounter Plan of Treatment Upcoming Encounters Date Type Department Care Team (Late st Contact Info) Description 10/26/2024 11:30 AM CDT Appointment [facility] Outpatient Services [place] [address] [place] [phone] 01/14/2025 2:00 PM CDT Office Visit [facility] Family Medicine [place] [address] [place] [address] [place] [phone] Joan De Paz [facility] [address] [place] [phone] 02/10/2025 11:30 AM CDT Appointment [facility] Echo [address] [place] [address] Gallito Lance MD [address] [place] [phone] 02/10/2025 1:00 PM CDT Office Visit [facility] [address] [place] [phone] Sarita Oro, SCIENTIFIC AFFAIRS MANAGER [address] [facility] [address] [place] [phone] documented as of this encounter Visit Diagnoses Not on filedocumented in this encounter Additional Health Concerns Infection Onset Date Last Indicated Resolved Time COVID-19 05/11/2021 05/11/2021 05/31/2021 2:22 AM KNOCKOUT MAN R/O Respiratory 06/07/2021 06/07/2021 06/07/2021 1 0:14 PM KNOCKOUT MAN COVID-19 04/18/2023 04/18/2023 05/08/2023 1:16 AM KNOCKOUT MAN R/O C. diff 09/04/2023 09/04/2023 09/04/2023 11:4 7 PM CDT R/O COVID-19 09/04/2023 09/04/2023 09/04/2023 6:46 PM CDT R/O COVID-19 11/11/2023 11/11/2023 11/11/2023 1:08 PM CDT Assessment Noted Time PHQ-9 Depression Total Score: 1 12/14/19 11:24 AM CDT documented as of this encounter Care Teams Paper Roller Relationship Specialty Start Date End Date Sánchez Macario MD [address] [phone] PCP - General Family Practice 04/10/21 documented as of this encounter
--- OUTSIDE RECORDS SUMMARY | 2024-10-25 09:15 | XMS_ITS | Encounter Summary ---
Author Organization [facility] Address [address] [place] [address] Care Team Providers Care Commercial Real Estate Agent Name Role Phone Fabiola Soto MD Primary Care Provider [phone] Encounter Details Date Type Department Care Team (Late st Contact Info) Description 04/22/2006 Outpatient Historical [facility] [address] [place] [address] AMBULANCE, [facility] Headache (Primary Dx) Social History Tobacco Use Types Packs/Day Years Used Date Smoking Tobacco: Never Assessed Comments Unknown Sex and Gender Information Value Date Recorded Sex Assigned at Not on file Legal Sex Female 5:07 AM HEEL COVERER MACHINE OPERATOR Gender Identity Not on file [...] as of this encounter Care Teams Commercial Real Estate Agent Relationship Specialty Start Date End Date Fabiola Soto MD [address] [facility] [place] [phone] PCP - General Family Practice 05/27/13 documented as of this encounter
--- OUTSIDE RECORDS SUMMARY | 2024-10-25 09:15 | XMS_ITS | Encounter Summary ---
Author Organization [facility] Address [address] [place] [address] Care Team Providers Care Photocopy Operator Name Role Phone Sánchez Macario MD Primary Care Provider [phone] Encounter Details Date Type Department Care Team [...] often do you attend chur ch or restorationism services? Never 01/05/2020 Do you belong to any clubs o r organizations such as catholic groups, unions, fraternal or athletic groups, [...] on file Legal Sex Female 9:22 AM MANAGER CODE Gender Identity Not on file Sexual Orientation Not on file COVID-19 Exposure Response Date Recorded In the last month, have you been in contact with someone who was confirmed or suspected to have Coronavirus / COVID-19? Yes 05/18/2021 1:41 PM MANAGER CODE documented as of this encounter Plan of Treatment Upcoming Encounters Date Type Department Care Team (Late st Contact Info) Description 10/26/2024 11:30 AM CDT Appointment [facility] [place] [address] [place] [phone] 01/14/2025 2:00 PM CDT Office Visit [facility] [place] [address] [place] [phone] Joan De Paz [facility] [address] [place] [phone] 02/10/2025 11:30 AM CDT Appointment [facility] [place] [address] [place] [address] Gallito Lance MD [address] [place] [phone] 02/10/2025 1:00 PM CDT Office Visit [facility] [address] [place] [phone] Sarita Oro, [facility] [address] [place] [phone] documented as of this encounter Visit Diagnoses Not on filedocumented in this encounter Additional Health Concerns Infection Onset Date Last Indicated Resolved Time COVID-19 05/11/2021 05/11/2021 05/31/2021 2:22 AM MANAGER CODE R/O Respiratory 06/07/2021 06/07/2021 06/07/2021 1 0:14 PM MANAGER CODE COVID-19 04/18/2023 04/18/2023 05/08/2023 1:16 AM MANAGER CODE R/O C. diff 09/04/2023 09/04/2023 09/04/2023 11:4 7 PM CDT R/O COVID-19 09/04/2023 09/04/2023 09/04/2023 6:46 PM CDT R/O COVID-19 11/11/2023 11/11/2023 11/11/2023 1:08 PM CDT Assessment Noted Time PHQ-9 Depression Total Score: 1 12/14/19 21 11:24 AM CDT documented as of this encounter Care Teams Photocopy Operator Relationship Specialty Start Date End Date Sánchez Macario MD [address] [phone] PCP - General Family Practice 04/10/21 documented as of this encounter
--- OUTSIDE RECORDS SUMMARY | 2024-10-25 09:15 | XMS_ITS | Encounter Summary ---
Author Organization [facility] Address [address] [place] [address] Care Team Providers Care Shipyard Painter Apprentice Name Role Phone Fabiola Soto MD Primary Care Provider [phone] Encounter Details Date Type Department Care Team (Late st Contact Info) Description 10/03/2010 Ancillary Orders [facility] [address] [facility] [address] [place] [address] Philly Darling APRN NO ADDRESS [...] on file Legal Sex Female 5:07 AM MEMORIAL ADVISER Gender Identity Not on file Sexual Orientation [...] documented as of this encounter Care Teams Shipyard Painter Apprentice Relationship Specialty Start Date End Date Fabiola Soto MD [address] [facility] [address] [place] [address] PCP - General Family Practice 05/27/13 documented as of this encounter
--- OUTSIDE RECORDS SUMMARY | 2024-10-25 09:16 | XMS_ITS | Encounter Summary ---
Author Organization [facility] Address [address] [place] [address] Care Team Providers Care Digital Controls Technical Officer Name Role Phone Fabiola Soto MD Primary Care Provider [phone] Encounter Details Date Type Department Care Team (Late st Contact Info) Description 08/29/2012 Ancillary Orders [facility] General Laboratory Services [place] [address] [place] [address] Social History Tobacco Use Types Packs/Day Years Used Date Smoking Tobacco: Never Smokeless Tobacco: Never Alcohol Use Standard Drinks/Week Comments No 0 (1 standard drink = 0.6 oz pur e alcohol) Comments No Sex and Gender Information Value Date Recorded Sex Assigned at Not on file Legal 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 Blood specimen (specimen) 08/29/2012 9:00 AM CDT 08/29/2012 1:48 PM CDT Narrative [facility] [employer] [facility] - 08/29/2012 3:19 PM CDT eGFR [...] ORDERAB LES Final Result Performing Organization Address City/[facility]/ZIP Co de Phone Number [facility] [employer] [facility] CLIA # [id number] [address] [place] [address] * (ABNORMAL) ALT (08/29/2012 9:00 AM CDT) ALT 23(L) 30 - 65 U/L 08/29/2012 3:19 PM CDT [facility] [employer] [facility] Blood specimen (specimen) 08/29/2012 9:00 AM CDT 08/29/2012 1:48 PM CDT [facility] DIAMOND CLEAVER CHEMISTRY ORDERAB LES Final Result [facility] [employer] [facility] CLIA # [id number] [address] [address] * (ABNORMAL) CBC WITHOUT DIFFERENTIAL (08/29/2012 9:00 AM CDT) WBC 5.6 4.0 - 10.0 K/uL 08/29/2012 8:45 PM CDT [facility] RBC 4.45 3.93 - 5.22 M/uL 08/29/2012 8:45 PM CDT [facility] HEMOGLOBIN 13.7 11.2 - 15.7 g/dL 08/29/2012 8:45 PM CDT [facility] HEMATOCRIT 42.4 34.1 - 44.9 % 08/29/2012 8:45 PM CDT [facility] MCV 95.3(H) 79.4 - 94.8 fL 08/29/2012 8:45 PM CDT [facility] MCH 30.8 25.6 - 32.2 pg 08/29/2012 8:45 PM CDT [facility] MCHC 32.3 32.2 - 35.5 g/dL 08/29/2012 8:45 PM CDT [facility] PLATELETS 255 163 - 337 K/uL 08/29/2012 8:45 PM CDT [facility] MPV 11.5 10.0 - 14.8 fL 08/29/2012 8:45 PM CDT [facility] RDW 14.1 11.0 - 14.5 % 08/29/2012 8:45 PM CDT [facility] RDW-STDEV 47.2 37.0 - 54.0 fL 08/29/2012 8:45 PM CDT [facility] Blood specimen (specimen) 08/29/2012 9:00 AM CDT 08/29/2012 1:48 PM CDT us Philly Darling DIAMOND CLEAVER HEMATOLOGY ORDERA BLES Final Result [facility] [employer] [facility] CLIA # [id number] [address] [place] [address] * (ABNORMAL) TSH (08/29/2012 9:00 AM CDT) TSH 5.94(H) 0.30 - 4.80 uIU/mL 08/29/2012 3:19 PM CDT [facility] [employer] [facility] Blood specimen (specimen) 08/29/2012 9:00 AM CDT 08/29/2012 1:48 PM CDT [facility] ORDERAB LES Final Result Performing Organization Address City/[facility]/ZIP Co de Phone Number [facility] [employer] [facility] CLIA # [id number] [address] [place] [address] * HEMOGLOBIN A1C (08/29/2012 9:00 AM CDT) HEMOGLOBIN A1C 5.8 4.5 - 6.2 % 08/31/2012 9:51 AM CDT [facility] [employer] [facility] EST. AVG GLUCOSE, A1C 120 mg/dL 08/31/2012 9:51 AM CDT [facility] [employer] [facility] Blood specimen (specimen) 08/29/2012 9:00 AM CDT 08/29/2012 1:48 PM CDT [facility] CHEMISTRY ORDERAB LES Final Result [facility] [employer] [facility] CLIA # [id number] [address] [place] [address] * (ABNORMAL) LIPID PANEL (08/29/2012 9:00 AM CDT) CHOLESTEROL 218(H) 130 - 200 mg/dL 08/29/2012 3:19 PM CDT [facility] [facility] TRIGLYCERIDE 101 30 - 200 mg/dL 08/29/2012 3:19 PM CDT [facility] [employer] [facility] HDL 50 35 - 80 mg/dL 08/29/2012 3:19 PM CDT [facility] [employer] [facility] LDL CALCULATED 148(H) 0 - 100 mg/dL 08/29/2012 3:19 PM CDT [facility] Blood specimen (specimen) 08/29/2012 9:00 AM CDT 08/29/2012 1:48 PM CDT Narrative [facility] [employer] [facility] - 08/29/2012 3:19 PM CDT TOTAL CHOLESTEROL mg/dL Desirable <200 Borderline high 200-239 High >=240 TRIGLYCERIDES mg/dL Normal <150 Borderline high 150-199 High 200-499 Very high >=500 HDL CHOLESTEROL mg/dL Low <40 Normal 40-60 Desirable >60 LDL CHOLESTEROL mg/dL Optimal <100 Low risk 100-129 Borderline high 130-159 High 160-189 Very high >=190 Based on AHA/NCEP Guidelines Philly Darling DIAMOND CLEAVER CHEMISTRY ORDERAB LES Final Result [facility] [employer] [facility] CLIA # [id number] [address] [address] documented in this encounter Visit Diagnoses Not on filedocumented in this encounter Additional Health Concerns Infection Onset Date Last Indicated Resolved Time R/O C. diff 10/16/2020 10/16/2020 10/16/2020 11:1 0 AM CDT documented as of this encounter Care Teams Digital Controls Technical Officer Relationship Specialty Start Date End Date Fabiola Soto MD [address] [address] PCP - General Family Practice 05/27/13 documented as of this encounter
--- OUTSIDE RECORDS SUMMARY | 2024-10-25 09:16 | XMS_ITS | Data Portability ---
Author Organization Zeenat Sahu [facility] Address [address] [place] [phone] Assessment No assessment recorded. Plan of Treatment [...] By Organization Details Last Modified Time 09/17/2023 [id number] Hospital records reviewed. Admitted with septic shock and later developed adrenal insufficiency known aortic stenosis with plan for evaluation for TAVR Labs weekly x 4 weeks. [email or web address] Not available 09/22/2023 12:40:57 09/24/2023 [id number] stop several supplements with nausea. d/c lasix d/t low bp. 1 L NS now. [email or web address] Not available 09/25/2023 10:29:18 11/19/2023 [id number] records reviewed . Admitted for respiratory failure with COPD exacerbation, found to have parainfluenza infection. Tx with IV abx and steroids. Ascending aortic dilation 4.1cm in July. Blood pressure low, staff to monitor. Still on prednisone. Will order budesonide nebs bid, duonebs TID. Labs weekly x 4 weeks. f/u 1 week. [email or web address] Not available 11/20/2023 11:06:45 11/26/2023 [id number] doing well, breathing tx helped with cough. mood good. Not available 11/27/2023 11:59:45 Reason for Referral None Reported. Problems Name Problem SNOMED Code Status Onset Date Resolution Date Notes Provider Name and Address Organization Details Recorded Time Hospital inpatient stay within past 30 days 0170162062920 [facility] 13:50:57 Iatrogenic adrenal insufficie ncy 085107959 [facility] 20[facility] 13:52:10 Septic shock 82399060 Active 2023 CATALINA BAUER [facility] 4 13:52:11 Interstiti al lung disease 080783159 Active 2023 CATALINA BAUER [facility] 4 13:52:13 Infiltrati ng duct carcinoma of breast 628426702 Active 2023 CATALINA BAUER [facility] 4 13:52:28 Severe aortic valve stenosis 569158922 Active 2023 CATALINA BAUER [facility] 4 13:52:37 Essential hypertensi on 11394862 Active 2023 CATALINA BAUER [facility] 4 11:03:39 Pulmonary embolism 13114753 Active 2023 CATALINA BAUER [facility] 4 11:03:49 Chronic kidney disease stage 3 635655992 Active 2023 CATALINA BAUER [facility] 4 11:04:01 Depressive disorder 04655612 [facility] 20[facility] 4 11:04:08 Problem Notes None recorded. [...] in Arterial blood by Pulse oximetry Systolic And Diastolic Provider Name and Address Organization Details Last Updated DateTime 4 167.64 cm 41 kg/m2 412839. 46 g 85 /min 18 /min 98.2 [degF] 94 % 94 % 113/67 mm[Hg] [facility] 4 13:49:06 Date Recorded Body height Body mass index (BMI) Body weight Heart rate Respiratory rate Body temperature Oxygen saturation Oxygen saturation in Arterial blood by Pulse oximetry Systolic And Diastolic Provider Name and Address Organization Details Last Updated DateTime 4 167.64 cm 41 kg/m2 510284. 46 g 84 /min 16 /min 97 [degF] 94 % 94 % 108/65 mm[Hg] [facility] 4 09:40:59 Date Recorded Body height Body mass index (BMI) Body weight Heart rate Respiratory rate Body temperature Oxygen saturation Oxygen saturation in Arterial blood by Pulse oximetry Systolic And Diastolic Provider Name and Address Organization Details Last Updated DateTime 4 167.64 cm 35 kg/m2 76021.5 4 g 91 /min 18 /min 98.2 [degF] 94 % 94 % 111/60 mm[Hg] CATALINA BAUER [facility] 11:57:35 Social History None recorded. Functional Status None recorded. Mental Status None recorded. Family History Nothing Reported. Medical History No medical history recorded. Gynecological HistoryNo gynecological history recorded. Obstetrics History GPAL:G 0 P 0 0 0 0 Past Encounters Encounter ID Performer Location Encounter Start Date Encounter Closed Date Diagnosis/Indication Diagnosis SNOMED-CT Code Diagnosis ICD10 Code Diagnosis Note [id number] Piotr Palmer DO [facility] ([facility]) [address] [place] [phone] 09/17/2023 11:29:53 09/22/2023 14:32:29 Hospital inpatient stay within past 30 days [id number] 106 Z76.89 Septic shock 55853938 R6 5.21 Iatrogenic adrenal insufficiency 870142092 E27.3 Interstiti al lung disease 945816669 J84.9 Infiltrati ng duct carcinoma of breast 775602187 C50.919 Severe aor tic valve stenosis 507586938 I35.0 [id number] Piotr Palmer [facility] ([facility]) [address] [place] [phone] 09/24/2023 08:12:39 09/30/2023 12:02:33 Interstitial lung disease 336017595 J84.9 Iatrogenic adrenal insufficiency 160880454 E27.3 Infiltrati ng duct carcinoma of breast 666769536 C50.919 Nausea 591574762 R11.0 Dehydration 34512439 E86 .0 [id number] Piotr Palmer [facility] ([facility]) [address] [place] [phone] 11/19/2023 16:38:37 11/24/2023 14:57:55 Hospital inpatient stay within past 30 days 1380730437 106 Z76.89 Severe aor tic valve stenosis 391275053 I35.0 Essential hypertension 90527948 I10 Pulmonary embolism 23238 003 I26.99 Chronic ki dney disease stage 3 506261974 N18.31 Depressive disorder 3548 9007 F32.A [id number] Piotr Palmer DO [facility] ([facility]) [address] [place] [address] 11/26/2023 11:18:04 11/27/2023 16:41:14 Interstitial lung disease 762030259 J84.9 Chronic ki dney disease stage 3 859996376 N18.31 Depressive disorder 3548 9007 F32.A Essential hypertension 66882273 I10 Health Concerns Section Related Observation LastModified by Organization Detai ls LastModified Time None Recorded Concern Status LastModified by Organization Details LastModified Time None Recorded Advance Directives Directive None Recorded Payers Insurance Date Sequence Insurance Name Policy Number Policy Mallory Covered Member ID Mallory Member ID Guarantor Name 09/25/2023 1 [place] Janet Calvillo [id number] Janet Calvillo 11/25/2023 [facility] [place] - [facility]MEDICARE) Janet Calvillo [id number] Janet Calvillo 09/25/2023 1 [place] - [place]) [id number] Janet Calvillo [id number] Janet Calvillo 12/02/2023 1 [place] (MEDICARE REPLACEMENT HMO) [id number] Janet Calvillo [id number] Janet Calvillo 09/17/2023 1 [place]) Janet Calvillo [id number] Janet Calvillo Notes Date Note Type Note Provider Name and Address Organization Details Recorded Time 09/17/2023 text/html Care Management - GeneralReported bypatient.Prognosis:e xpected outcome: stabilize; prognosis: moderate Context:not current smoker Lifestyle Changes:exercises regularly Medication Therapy:compliant with follow-up visits; compliance with oral medication is good; understands effect of concurrent medications; understands potential side effects; understands missed doses Piotr Palmer DO [address] [place] [address], [phone], [facility] 09/22/2023 12:41:20 09/24/2023 text/html Care Management - GeneralReported bypatient.Prognosis:e xpected outcome: stabilize; prognosis: moderate Context:not current smoker Lifestyle Changes:exercises regularly Medication Therapy:compliant with follow-up visits; compliance with oral medication is good; understands effect of concurrent medications; understands potential side effects; understands missed doses Piotr Palmer DO [address] [place] [address], [phone], [facility] Zeenat Nj 09/29/2023 10:18:02 11/19/2023 text/html Care Management - GeneralReported bypatient.Prognosis:e xpected outcome: stabilize; prognosis: moderate Context:not current smoker Lifestyle Changes:exercises regularly Medication Therapy:compliant with follow-up visits; compliance with oral medication is good; understands effect of concurrent medications; understands potential side effects; understands missed doses Piotr Palmer DO [address] [place] [address], [address] [place] [address], [facility] Zeenat Nj 11/24/2023 08:50:43 11/26/2023 text/html Care Management - GeneralReported bypatient.Prognosis:e xpected outcome: stabilize; prognosis: moderate Context:not current smoker Lifestyle Changes:exercises regularly Medication Therapy:compliant with follow-up visits; compliance with oral medication is good; understands effect of concurrent medications; understands potential side effects; understands missed doses Piotr Palmer DO [address] [place] [address], [phone], [facility] Zeenat Nj 12/01/2023 12:00:19 OBGyn Episode No OBEpisode recorded.
--- NOTE | 2024-10-25 09:17 | ECG_ITS ---
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 Measurements Intervals [place] Rate: 111 P: -48 WV: 247 QRS: -32 QRSD: 146 T: 128 QT: 375 QTc: 510 Interpretive Statements ECTOPIC ATRIAL TACHYCARDIA WITH FIRST DEGREE AV BLOCK POSSIBLE LEFT ATRIAL ENLARGEMENT [-0.1mV P-WAVE IN V1/V2] INTRAVENTRICULAR CONDUCTION DELAY [130+ ms QRS DURATION] INFERIOR MYOCARDIAL INFARCTION , OF INDETERMINATE AGE [40+ ms Q WAVE AND/OR ST/T ABNORMALITY IN II/aVF] Compared to ECG 10/08/2024 18:16:51 First degree AV block now present Intraventricular conduction delay now present Myocardial infarct finding now present Sinus rhythm no longer present Left-axis deviation no longer present Left bundle-branch block no longer present Electronically Signed On 10-26-2024 08:22:28 CDT by Shabbir Momin M.D. [email or web address]
--- NOTE | 2024-10-25 09:22 | CT_ITS ---
WS: [email or web address] Exam: CT head wo con* [id number] Date/Time of Exam: 10/25/2024 9:46 AM Reason For Exam: Dizziness vomiting DLP: All CT scans at [facility] use at least one of these dose optimization techniques: automated exposure control; mA and/or kV adjustment per patient size (includes targeted exams where dose is matched to clinical indication); or iterative reconstruction. Comparison 10/15/2024. No sign of space-occupying mass or acute intracranial bleed. No extra-axial fluid collections are noted. Diffuse atrophy noted. The brainstem and cerebellum are unremarkable. The skull is intact. The mastoids and facial sinuses are clear. Unremarkable orbits and optic globes. The scalp is unremarkable. CT/CT head wo con* [id number] IMPRESSION: 1. Diffuse atrophy and some volume loss. 2. No indication of intracranial mass, bleed or acute process.
[2024-10-25 09:54] LABS: Alveolar-Arterial Oxygen Gradi 6.6 mmHg (5-10); Arterial Blood Gas Hematocrit 39.1 % (37-47); Blood Gas Allen Test Pos; Blood Gas Operator Identificat WALCI; Blood Gas Sample Site Radial, right; Blood Gas Sample Type Arterial; Carboxyhemoglobin 0.8 %THgb (0.4-20.1); Glucose Level-ABG 105.0 mg/dL (70-115); HCO3 ABG 16.8 mmol/L (22-26); Ionized Calcium Level - ABG 1.2 mmol/L (1.1-1.4); Methemoglobin 0.3 % (0.4-1.5); Oxygen Saturation ABG 98.4; PO2 ABG 76.7 mmHg (80.0-100.0); PO2 FiO2 Ratio Arterial Blood 365; Potassium Level - ABG 3.5 mmol/L (3.5-5.0); Sodium Level - ABG 138.0 mmol/L (131-143)
[2024-10-25 09:55] VITALS: BP 117/87; PULSE 134; RESP 18; O2SAT 92
[2024-10-25 09:55] LABS: ABG PCO2 16.1 mmHg (35-45); ABG PH Result 7.63 (7.35-7.45)
[2024-10-25 10:17] LABS: Glucose Urine UA Negative (Normal); Nitrate Urine Negative (Negative); Specific Gravity, Urine 1.021 (1.005-1.030)
[2024-10-25 10:20] LABS: Add Urine Microscopic? YES
[2024-10-25 10:28] LABS: Hematocrit 36.1 % (36-47); Hemoglobin 11.60 g/dL (11.27-16.99); Mean Corpuscular HGB Conc 32.1 g/dL (30-55); Mean Corpuscular Hemoglobin 31.8 pg (27-33); Mean Corpuscular Volume 98.9 fl (85-98); Nucleated Red Blood Cells % 0 %; Platelet Count 205 10^3/cmm (157-399); Red Blood Count 3.65 10^6/uL (3.85-5.65); White Blood Count 7.92 10^3/uL (3.29-11.43)
[2024-10-25 10:32] LABS: UA Slide Review UA Slide Review Perf
[2024-10-25 10:42] LABS: INR 1.27 (0.8-1.2); Prothrombin Time 16.80 SECONDS (12.1-14.9)
[2024-10-25 10:48] LABS: Alanine Aminotransferase 10 U/L (0-33); Albumin Level 3.2 g/dL (3.5-5.2); Alkaline Phosphatase 63 U/L (35-105); Anion Gap 17.7 (5-19); Aspartate Amino Transferase 19 U/L (0-32); Blood Urea Nitrogen 20 mg/dL (8-23); Calcium 8.9 mg/dL (8.5-10.5); Carbon Dioxide 19 mmol/L (22-29); Chloride 105 mmol/L (98-107); Creatinine Clr Calc Pharmacy 60.8897; Globulin 2.7 g/dL (1.3-4.6); Glucose 88 mg/dL (65-115); Lipase 23 U/L (13-60); Osmolality Calculated 288 mOsm/kg (285-295); Potassium 3.7 mmol/L (3.5-5.1); Sodium 138 mmol/L (136-145); Total Protein 5.9 g/dL (6.6-8.7)
[2024-10-25 10:49] LABS: Lactic Sepsis W/Reflex 3.4 mmol/L (0.5-2.2)
[2024-10-25 10:50] VITALS: BP 154/104; PULSE 100; RESP 16; O2SAT 94
[2024-10-25 11:00] VITALS: BP 133/112; PULSE 109; RESP 16; O2SAT 92
[2024-10-25 12:06] LABS: Reflex Lactate Order REFLEX LACTIC ORDERD
[2024-10-25 12:06] LABS: Respiratory Syncytial Virus Ce NEGATIVE (Negative); SARS-CoV-2 PCR NEGATIVE (Negative)
[2024-10-25 13:20] LABS: Lactic Acid level (Lactate) 2.6 mmol/L (0.5-2.2)
[2024-10-25 13:53] VITALS: BP 114/88; PULSE 113; O2SAT 93
== END 2024-10-25 13:53 | disposition home or self-care (01) ==
PROVIDERS: Emergency Provider Family Medicine; PCP Family Medicine
DX: R06.4 Hyperventilation (principal); Z11.52 Encounter for screening for COVID-19; Z79.01 Long term (current) use of anticoagulants; E78.5 Hyperlipidemia, unspecified; I10 Essential (primary) hypertension; Z85.3 Personal history of malignant neoplasm of breast
CPT/HCPCS: 36415; 36600; 70450; 71045; 80051; 80053; 81001; 82330; 82805; 83605; 83690; 85025; 85610; 87637; 93005; 99285; J7030

== ENCOUNTER 2024-11-10 10:15 | Oncology outpatient (recurring) (ONCR) | payer MEDICARE, MEDICAID, SELFPAY ==
[2024-11-02 10:15] LABS: Hematocrit 38.1 % (36-47); Hemoglobin 12.50 g/dL (11.27-16.99); Mean Corpuscular HGB Conc 32.8 g/dL (30-55); Mean Corpuscular Hemoglobin 31.9 pg (27-33); Mean Corpuscular Volume 97.2 fl (85-98); Nucleated Red Blood Cells % 0 %; Platelet Count 262 10^3/cmm (157-399); Red Blood Count 3.92 10^6/uL (3.85-5.65); White Blood Count 7.08 10^3/uL (3.29-11.43)
[2024-11-02 10:45] LABS: Alanine Aminotransferase 15 U/L (0-33); Albumin Level 3.5 g/dL (3.5-5.2); Alkaline Phosphatase 66 U/L (35-105); Anion Gap 15.1 (5-19); Aspartate Amino Transferase 27 U/L (0-32); Blood Urea Nitrogen 16 mg/dL (8-23); CA 15-3 37.9 U/mL (0-25); Calcium 9.7 mg/dL (8.5-10.5); Carbon Dioxide 23 mmol/L (22-29); Chloride 106 mmol/L (98-107); Creatinine Clr Calc Pharmacy 58.6409; Globulin 2.7 g/dL (1.3-4.6); Glucose 108 mg/dL (65-115); Osmolality Calculated 292 mOsm/kg (285-295); Potassium 4.1 mmol/L (3.5-5.1); Sodium 140 mmol/L (136-145); Total Protein 6.2 g/dL (6.6-8.7)
--- NOTE | 2024-11-05 14:00 | PETR_ITS ---
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 Then, PET images were obtained. Attenuation corrected images were constructed using the CT scan. Fused images of PET and CT were reviewed. The standardized uptake values (SUV) reported below are maximum values within a region of interest, expressed in gm/ml. Exam includes orbital meatal line to mid-thigh. SUV normalization method: BodyWeight Radiopharmaceutical: 10.8 mCi F-18 FDG (Fluorodeoxyglucose), IV. Time of imaging post radiopharmaceutical administration: 46 minutes Injection site: LAC COMPARISON: PT PET skull to thigh SUBS [id number] 04/02/2024 4:06 PM FINDINGS: Tubes, catheters and devices: Right chest wall port tip terminates in the right atrium. Brain: Visualized brain has normal physiologic uptake. Pharynx: No abnormal uptake. Larynx: No abnormal uptake. Lungs, pleura and trachea: FDG avid small right pleural effusion with SUV max of 5.3. Bilateral hypermetabolic pulmonary nodules including 2.5 cm medial right lower lobe nodule (series 202, image 115) with SUV max of 10.4, and 1.4 cm left upper lobe nodule (image 96) with SUV max of 8.1. Heart: Status post aortic valve replacement. Mediastinal space: No abnormal uptake. Liver: No abnormal uptake. Gallbladder and biliary ducts: Status post cholecystectomy. Pancreas: No abnormal uptake. Spleen: No abnormal uptake. Adrenal glands: No abnormal uptake. Kidneys and ureters: Normal physiologic uptake. Stomach and bowel: No abnormal uptake. Vasculature: No abnormal uptake. Lymph nodes: FDG avid right retrocrural lymph node measuring 5 mm (image 143) with SUV max of 8.3, FDG avid right hilar lymph node measuring 1.8 cm (image 98) with SUV max of 6.7. Skeleton: No abnormal uptake in the visualized axial and appendicular skeleton. Soft tissues: Physiologic muscular uptake in the wmxoa-oadtcvd-jkxf-left arms. Mild skin thickening in the left breast, likely secondary to prior radiation. METRICS: Mediastinal blood pool: SUV max = 3.0 Liver uptake: SUV max = 3.8 PET/PET skull to thigh SUBS [id number] IMPRESSION: 1. Extensive pulmonary metastatic disease. 2. Small malignant right pleural effusion. 3. FDG avid subcentimeter retrocrural and right hilar lymph nodes, concerning for metastatic disease.
[2024-11-10 10:51] LABS: Hematocrit 38.9 % (36-47); Hemoglobin 12.40 g/dL (11.27-16.99); Mean Corpuscular HGB Conc 31.9 g/dL (30-55); Mean Corpuscular Hemoglobin 31.6 pg (27-33); Mean Corpuscular Volume 99.2 fl (85-98); Nucleated Red Blood Cells % 0 %; Platelet Count 222 10^3/cmm (157-399); Red Blood Count 3.92 10^6/uL (3.85-5.65); White Blood Count 7.52 10^3/uL (3.29-11.43)
[2024-11-10 11:29] LABS: Alanine Aminotransferase 12 U/L (0-33); Albumin Level 3.6 g/dL (3.5-5.2); Alkaline Phosphatase 69 U/L (35-105); Anion Gap 12.2 (5-19); Aspartate Amino Transferase 22 U/L (0-32); Blood Urea Nitrogen 13 mg/dL (8-23); Calcium 9.5 mg/dL (8.5-10.5); Carbon Dioxide 24 mmol/L (22-29); Chloride 106 mmol/L (98-107); Creatinine Clr Calc Pharmacy 58.6409; Globulin 2.9 g/dL (1.3-4.6); Glucose 96 mg/dL (65-115); Osmolality Calculated 286 mOsm/kg (285-295); Potassium 4.2 mmol/L (3.5-5.1); Sodium 138 mmol/L (136-145); Thyroid Stimulating Hormone 4.22 uIU/mL (0.27-4.20); Total Protein 6.5 g/dL (6.6-8.7)
[2024-11-10] MEDS: pembrolizumab 200 MG in sodium chloride 0.9% 250 ML 516 MG IV (12:54)
[2024-11-10 13:30] VITALS: BP 129/63; PULSE 96; RESP 17; TEMP 36.1; O2SAT 97
== END 2024-11-10 23:59 | disposition home or self-care (01) ==
PROVIDERS: Nurse Practitioner; PCP Family Medicine; Visit Provider Internal Medicine Medical Oncology
DX: Z53.9 Procedure and treatment not carried out, unspecified reason; Z51.12 Encounter for antineoplastic immunotherapy; C50.412 Malignant neoplasm of upper-outer quadrant of left female breast; Z17.1 Estrogen receptor negative status [ER-]; E78.5 Hyperlipidemia, unspecified; E03.9 Hypothyroidism, unspecified; R91.8 Other nonspecific abnormal finding of lung field; Z79.899 Other long term (current) drug therapy
CPT/HCPCS: 36591; 78815; 80053; 83615; 84443; 85025; 86300; 96413; 99214; A9552; J7050; J9271

== ENCOUNTER 2024-12-06 09:27 | Oncology outpatient (recurring) (ONCR) | payer MEDICARE, MEDICAID, SELFPAY ==
[2024-12-06 09:46] LABS: Hematocrit 35.9 % (36-47); Hemoglobin 11.70 g/dL (11.27-16.99); Mean Corpuscular HGB Conc 32.6 g/dL (30-55); Mean Corpuscular Hemoglobin 31.7 pg (27-33); Mean Corpuscular Volume 97.3 fl (85-98); Nucleated Red Blood Cells % 0 %; Platelet Count 205 10^3/cmm (157-399); Red Blood Count 3.69 10^6/uL (3.85-5.65); White Blood Count 5.90 10^3/uL (3.29-11.43)
[2024-12-06 10:14] LABS: Alanine Aminotransferase 14 U/L (0-33); Albumin Level 3.6 g/dL (3.5-5.2); Alkaline Phosphatase 68 U/L (35-105); Aspartate Amino Transferase 25 U/L (0-32); Blood Urea Nitrogen 20 mg/dL (8-23); CA 15-3 31.6 U/mL (0-25); Calcium 9.6 mg/dL (8.5-10.5); Carbon Dioxide 25 mmol/L (22-29); Chloride 102 mmol/L (98-107); Creatinine Clr Calc Pharmacy 58.3407; Globulin 2.9 g/dL (1.3-4.6); Glucose 98 mg/dL (65-115); Osmolality Calculated 283 mOsm/kg (285-295); Sodium 135 mmol/L (136-145); Thyroid Stimulating Hormone 2.52 uIU/mL (0.27-4.20); Total Protein 6.5 g/dL (6.6-8.7)
[2024-12-06 10:15] LABS: Anion Gap 11.8 (5-19); Potassium 3.8 mmol/L (3.5-5.1)
== END 2024-12-19 23:59 | disposition home or self-care (01) ==
PROVIDERS: PCP Family Medicine; Visit Provider Internal Medicine Medical Oncology
DX: C50.012 Malignant neoplasm of nipple and areola, left female breast (principal); C50.412 Malignant neoplasm of upper-outer quadrant of left female breast; Z17.1 Estrogen receptor negative status [ER-]; E03.9 Hypothyroidism, unspecified; R91.8 Other nonspecific abnormal finding of lung field; J90 Pleural effusion, not elsewhere classified; R06.02 Shortness of breath; Z79.899 Other long term (current) drug therapy; Z95.828 Presence of other vascular implants and grafts; Z92.3 Personal history of irradiation
CPT/HCPCS: 80053; 84443; 85025; 86300; 99214

== ENCOUNTER → 2024-12-21 14:13 | Outpatient (BNVA) | payer MEDICARE, MEDICAID, SELFPAY | PROVIDERS: PCP Family Medicine; Visit Provider Internal Medicine | DX: J90 Pleural effusion, not elsewhere classified (principal); R91.8 Other nonspecific abnormal finding of lung field; Z86.718 Personal history of other venous thrombosis and embolism; Z86.711 Personal history of pulmonary embolism; Z79.01 Long term (current) use of anticoagulants; R94.2 Abnormal results of pulmonary function studies; D89.89 Other specified disorders involving the immune mechanism, not elsewhere classified | CPT/HCPCS: 99205; Q3014 ==

== ENCOUNTER → 2024-12-22 10:39 | Outpatient (BNVA) | payer MEDICARE, MEDICAID, SELFPAY | PROVIDERS: PCP Family Medicine; Visit Provider Internal Medicine | DX: E27.40 Unspecified adrenocortical insufficiency (principal); R91.8 Other nonspecific abnormal finding of lung field; Z79.52 Long term (current) use of systemic steroids; J90 Pleural effusion, not elsewhere classified; E03.9 Hypothyroidism, unspecified; R53.1 Weakness | CPT/HCPCS: 99204 ==

== ENCOUNTER 2025-01-05 09:24 | Day surgery (SDC) | payer MEDICARE, MEDICAID, SELFPAY ==
[2025-01-05] VITALS (12 sets, daily range): BP systolic 88–123; BP diastolic 40–88; PULSE 71–88; RESP 10–20; TEMP 36.4–37.2; O2SAT 90–97; BMI 31.1
--- NOTE | 2025-01-05 11:55 | ANES.PREANE2 ---
Pre-Anesthetic Assessment Height/Weight: Height 1.68 m Weight 87.543 kg Temp Pulse Resp BP Pulse Ox O2 Del Method 98.1 F 71 20 H 123/60 92 Room Air 01/05/25 10:37 01/05/25 10:37 01/05/25 10:37 01/05/25 10:37 01/05/25 10:37 01/05/25 10:37 Operation Date: 01/05/25 12:20 Proposed Procedures p Bronchoscopy [id number] [id number] [id number] 04637 74124 99764 62684 63364 R91.8 R94.2(Not Applicable) - Tone Denny MD s Ion Robotic Assisted Bronchoscopy(Not Applicable) - MD eamon Lubin Ebus(Not Applicable) - Tone Denny MD Familial anesthetic complications: Red head Was Beta Sixto taken within 24 hours: N/A Was Clonidine taken within 24 hours: N/A Last intake: Intake Last Liquid Date 01/04/25 Last Liquid Time 19:00 Last Solid Date 01/04/25 Last Solid Time 18:00 Social No alcohol and No tobacco Exam alert, oriented x 3, clear to auscultation bilaterally and regular rate & rhythm Red head with high requirements Airway Mallampati: Class I Pulmonary Chronic Obstructive Pulmonary Disease CV/HEM TVAR Metabolic adrenal insufficiency hydrocortisone 50 to 100 mg recommended Anesthetic Plan ASA status: 4 Anesthesia: General Risk of > 500 ml blood loss (7ml/kg in children): No Medications/Allergies Home Medications ?Medication ?Instructions ?Recorded ?Confirmed ?Last Taken ?Type potassium chloride 10 mEq 10 meq PO DAILY 12/28/19 01/04/25 01/05/25 History capsule,extended release tolterodine 4 mg capsule,extended 4 mg PO DAILY 12/28/19 01/04/25 01/04/25 History release 24 hr denosumab 60 mg/mL subcutaneous 60 mg SUBCUT Q6M 06/26/20 01/04/25 06/10/24 History syringe (Prolia) cyanocobalamin (vitamin B-12) 2,500 mcg PO DAILY 07/19/21 01/04/25 01/05/25 History 2,500 mcg tablet custom inserts #1 ea 08/06/23 12/22/24 Unknown Rx apixaban 5 mg tablet (Eliquis) 5 mg PO BID #60 tabs 09/11/23 01/04/25 01/03/25 Rx fluoxetine 40 mg capsule 40 mg PO DAILY 12/08/23 01/04/25 01/05/25 History lorazepam 0.5 mg tablet 0.5 mg PO DAILY 12/08/23 01/04/25 01/05/25 History ropinirole 0.25 mg tablet 0.25 mg PO DAILY 12/15/23 01/04/25 01/05/25 History tizanidine 2 mg tablet 2 mg PO DAILY PRN Spasms 03/15/24 01/05/25 01/05/25 History acetaminophen 325 mg tablet 325 mg PO QID PRN Pain 04/22/24 01/04/25 Unknown History meclizine 25 mg tablet 25 mg PO QID PRN dizziness #20 tabs 10/15/24 01/04/25 01/05/25 Rx levothyroxine 150 mcg capsule 150 mcg PO DAILY #30 caps 10/20/24 01/04/25 01/05/25 Rx daxnozmtqpyh-kufekzms-FE-omega 1 cap PO DAILY 01/04/25 01/04/25 01/04/25 History 3,6,9 no.3 400 mcg capsule Allergies Allergy/AdvReac Type Severity Reaction Status Date / Time tetanus toxoid, adsorbed Allergy Severe unknown Verified 01/04/25 11:28 ciprofloxacin (From Cipro) Allergy Unknown ADR-Vomitin Verified 01/04/25 11:28 g erythromycin base Allergy Unknown ADR-Vomitin Verified 01/04/25 11:28 g gabapentin (From Neurontin) Allergy Unknown unknown Verified 01/04/25 11:28 Influenza Virus Vaccines Allergy Unknown unknown Verified 01/04/25 11:28 tramadol (From Ultram) Allergy Unknown unknown Verified 01/04/25 11:28 aspirin Allergy stomach Verified 01/04/25 11:28 pain, unbearable egg Allergy unknown Verified 01/04/25 11:28 Fish Containing Products Allergy ALGY-Rash Verified 01/04/25 11:28 NSAIDS (Non-Steroidal Allergy heartburn, Verified 01/04/25 11:28 Anti-Inflamma stomach pain Tetanus Vaccines and Toxoid Allergy unknown Verified 01/04/25 11:28 hydrocodone (From Vicodin) AdvReac Mild ADR-Nausea Verified 01/05/25 10:45 adhesive AdvReac Unknown unknown Verified 01/04/25 11:28 Current Medications Generic Name Dose Route Start Last Admin Trade Name Sampson PRN Reason Stop Dose Admin Sodium Chloride 1,000 mls @ 30 mls/hr 01/05/25 10:45 01/05/25 11:54 Sodium Chloride 0.9% IV 01/06/25 10:44 30 mls/hr .Q24H GREGORIO Administration PFSH Anesthesia Medical History Pulmonary nodules 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 Hypothyroidism COVID-2021 History of echocardiogram 06/2023 EF 60%, Grade I/IV diastolic dysfunction, severe AV stenosis 0.99, mean gradient 40.2 mmHg, peak velocity 4.19 ms 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 Primary osteoarthritis of left knee Iron deficiency anemia Dyslipidemia Port-A-Cath in place placed 12/2022 Adrenal insufficiency hospital stay 08/2023 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 History of recurrent UTI (urinary tract infection) Interstitial lung disease Asthma Breast cancer Hydronephrosis of right kidney Osteoporosis Arthritis Aortic stenosis Hypertension DVT (deep venous thrombosis) Pulmonary embolism Obesity Surgical History History of cardiac catheterization 07/2023 no obstructive disease Hx of tubal ligation Hx of cystoscopy Hx of colonoscopy Age 65 Hx of cholecystectomy H/O: hysterectomy Hx of cataract surgery S/P tonsillectomy Family History Father , AT 92 Congestive heart failure (CHF) Mother , AT 100 of unknown cause Other CAD (coronary artery disease) Cancer Diabetes Hyperlipidemia Hypertension Stroke Denies family history of Psychiatric illness Chronic kidney disease (CKD) Suicide Family history of premature coronary artery disease Lung disease Social History Smoking and tobacco/nicotine status: never used tobacco/nicotine Alcohol intake: never Substance/Drug Use: never Marital status: / Current occupational status: retired and disabled Data Anesthesia Cardiac Studies: Echocardiogram 12/24/24 Echocardiogram Ultrasound 10/06/20
--- NOTE | 2025-01-05 11:57 | SC_ITS ---
WS: [id number] C-ARM RADIOGRAPHS CHEST; 5-6 IMAGES HISTORY: BRONCH IN OR COMPARISON: None available. Intraoperative imaging during navigational bronchoscopy. SC/C-arm FL for Bronchoscopy IMPRESSION: Intraoperative imaging purposes for navigational bronchoscopy.
--- NOTE | 2025-01-05 12:46 | W.PM.OPSUD ---
Surgery/Procedure H&P Update DATE OF PROCEDURE: January 05, 2025 DATE H&P PERFORMED: 12/21/24 CHANGES TO PREVIOUS DOCUMENTATION: Patient was seen and examined this morning. No significant clinical changes since I saw her in clinic. Patient has been holding her apixaban since 01/03/2025 morning. Discussed with the patient the risks and the benefits of the bronchoscopy and she agreed to proceed forward. Also discussed with the patient about the right pleural effusion and we agreed to do diagnostic and therapeutic thoracentesis in case she has enough fluid to tap. I explained to the patient the risk include bleeding, collapsed lung, pain, lung injury, arrhythmia, cardiovascular collapse and and patient voiced understanding. Also explained to patient there is possibility of nondiagnostic sample. PLANNED PROCEDURE: Operation Date: 01/05/25 12:20 Proposed Procedures p Bronchoscopy 11007 22553 [id number] [id number] 87918 07694 87558 R91.8 R94.2(Not Applicable) - Tone Denny MD s Ion Robotic Assisted Bronchoscopy(Not Applicable) - Tone Denny MD s Ebus(Not Applicable) - Tone Denny MD
--- NOTE | 2025-01-05 13:02 | PC.NURSE ---
1300- TIME OUT DONE FOR RT THORACENTESIS
[2025-01-05] MEDS: lidocaine 2% INJ 20 mL XX (13:09)
[2025-01-05 13:46] LABS: Mononuclear %, Pleural Fluid 96 %; Mononuclear, Pleural Fluid # 0.902 10^3/uL; Polynuclear Cells, Pleural # 0.039 10^3/uL; Polynuclear Cells, Pleural % 4 %; WBC Pleural Fluid 941.000 /uL (0-1000)
[2025-01-05 13:47] LABS: Appearance, Pleural Fluid BLOODY (CLEAR); Color, Pleural Fluid Red (Pale Yellow); Cyto Order Verification Order Verified
--- NOTE | 2025-01-05 13:49 | PC.NURSE ---
CRYO BX DONE. SN:[id number]
[2025-01-05 13:55] LABS: PATH Referal YES
[2025-01-05 14:37] LABS: Pleural Fluid Cholesterol 85 mg/dL; Pleural Fluid Triglycerides 36 mg/dL; Right Pleural Fluid Right Lung
[2025-01-05 14:38] LABS: Fluid Laterality RIGHT
[2025-01-05 14:39] LABS: Cyto Order Verification Order Verified
--- NOTE | 2025-01-05 14:56 | XRR_ITS ---
PROCEDURE INFORMATION: Exam: XR Chest Exam date and time: 01/05/2025 3:14 PM Age: 84 years old Clinical indication: Device placement; Other: Bronch; Prior surgery; Surgery date: Post-operative (0-2 days); Additional info: Post bronch, when PT in pacu TECHNIQUE: Imaging protocol: Radiologic exam of the chest. Views: 1 view. COMPARISON: CT chest ION (PULM ONLY) [id number] 12/31/2024 2:39 PM FINDINGS: Tubes, catheters and devices: Right infusion port terminates in the right atrium. Lungs: Innumerable pulmonary masses larger and more numerous than before. Mild bibasilar infiltrates or atelectasis. Pleural spaces: Unremarkable. No pleural effusion. No pneumothorax. Heart/Mediastinum: See Vasculature finding. Vasculature: Mild cardiomegaly and uncoiling of the thoracic aorta. Bones/joints: Unremarkable. XR/XR chest 1V portable [id number] IMPRESSION: Progressive metastatic disease. No complication to bronchoscopy.
--- NOTE | 2025-01-05 14:58 | P.BOP_ITS ---
Interventional Pulmonary Immediate Brief Operative Note: * Date of Procedure:?January 05, 2025 * Preoperative Diagnosis:?Lung masses. Right pleural effusion * Postoperative Diagnosis:?[Same as pre-op] * Procedures Performed: * Right thoracentesis * Robotic bronchoscopy for lung masses biopsies and mediastinal staging EBUS * Surgeon / Lesson Instructor:?Tone Denny MD * Anesthesia: * ?General anesthesia * Findings: * Estimated Blood Loss (EBL):?[Minimal] * Specimens: * ?BAL fluid from the right lower lobe * ?TBNA from station(s) right lower lobe mass, right upper lobe mass, 11L and station 7 * ?Cryobiopsy from RLL mass, RUL mass * Right lower lobe mass brushing for cytology * Right pleural fluid for multiple studies * Complications:?None * Disposition:?Transferred to PACU in stable condition. Tone Denny MD, FACP Interventional Pulmonogist
--- NOTE | 2025-01-05 14:58 | W.PM.BPON ---
Interventional Pulmonary Immediate Brief Operative Note: Date of Procedure:?January 05, 2025 Preoperative Diagnosis:?Lung masses. Right pleural effusion Postoperative Diagnosis:?[Same as pre-op] Procedures Performed: Right thoracentesis Robotic bronchoscopy for lung masses biopsies and mediastinal staging EBUS Surgeon / Manager Division:?Tone Denny MD Anesthesia: ?General anesthesia Findings: Estimated Blood Loss (EBL):?[Minimal] Specimens: ?BAL fluid from the right lower lobe ?TBNA from station(s) right lower lobe mass, right upper lobe mass, 11L and station 7 ?Cryobiopsy from RLL mass, RUL mass Right lower lobe mass brushing for cytology Right pleural fluid for multiple studies Complications:?None Disposition:?Transferred to PACU in stable condition. Tone Denny MD, FACP Interventional Pulmonogist
[2025-01-05] MEDS: lidocaine 2% INJ 20 mL 40 ML (14:59)
[2025-01-05] MEDS: EPINEPHrine 1 MG in sodium chloride 0.9% 19 ML 4 MG XX (14:59)
--- NOTE | 2025-01-05 15:03 | PM.OP ---
Operative Report Date of procedure: January 05, 2025 Pre-op diagnosis: 1. Lung masses #2 right pleural effusion Post-op diagnosis: Same Procedure done: 1. Right thoracentesis 2. robotic bronchoscopy with mediastinal staging Surgeon: Tone Denny MD Estimated blood loss: Less than 10 cc Complications: None Findings: Procedures: Right thoracentesis and robotic bronchoscopy with complete mediastinal staging Attending: Tone Denny MD, FACP, FASN Indication: Right pleural effusion and lung nodules Anesthesia: General anesthesia per anesthesia team Procedure: Pre-Anesthesia Assessment Dickinson Protocol: Pre-procedure Verification: Prior to the procedure, the patient's identity was confirmed using full name, date of , and medical record number. Identity verification included a review of all relevant medical records, history, physical examination, medications, allergies, and previous anesthesia tolerance. Risks, benefits, sedation options, and associated risks were reviewed with the patient, and informed consent was obtained after addressing all questions. Time-Out: Immediately before the procedure, a time-out was conducted to confirm patient identification, procedure details, consent, image labeling, and the need for prophylactic antibiotics. This was verified by the physician, nurse, anesthesiologist, and tool and die maker level five. Outcome: The procedure was completed without difficulty, and the patient tolerated it well. Initially, while patient was sitting in bed, The thorax was scanned with portable ultrasound and demonstrated a moderate-sized right pleural effusion and a large left pleural effusion. We decided to proceed forward with therapeutic right thoracentesis. The patient was placed in a sitting/semirecumbent position. The site was marked, prepped and draped in the usual sterile fashion using chlorhexidine and local anesthesia was achieved with 10cc 1% lidocaine which was injected subcutaneously and deep to provide local anesthesia. A small incision was then made parallel and superior to the rib that the thoracentesis needle with catheter was inserted into the chest wall and advanced under constant aspiration. Upon aspiration of pleural fluid the 6 Bulgarian thoracentesis catheter was placed using Seldinger technique with recovery of about 700 ml of dark yellow-colored fluid. The catheter was then removed and Band-Aid was placed. The patient tolerated the procedure well without immediate complication. Then anesthesia proceeded with intubation and we proceeded with the bronchoscopy as below. Findings: A thorough airway exam was performed after passage of the bronchoscope. The trachea was anatomically normal. The right sided airway was anatomically normal without endobronchial lesions or secretions. The left sided airway was anatomically normal without endobronchial lesions or secretions. The prior bronchoscope was removed from the airway. The [employer] Robotic Bronchoscopy platform was moved into place. The robotic bronchoscope was inserted into the endotracheal tube with care. The position of the bronchoscope was registered to a pre-existing CT scan using shape-sensing virtual bronchoscopy technology (98914). We navigated towards the lesion in the RLL nodule using a pre-planned route using virtual bronchoscopy Prior to sampling, confirmation of lesion location was done using: - Radial ultrasound probe with an eccentric view (01480), - Fluroscopy with a tool overlying the lesion on at least one visual plane. - Virtual target located directly within the path of intended biopsy direction on shape sensing! - Cone Beam intraoperative CT was performed [address] imaging interpretation was utilized for guidance for needle placement. Imaging interpretation by me shows the persistent lesion as well as a tool within the lesion (83566) - CBCT data from the intraoperative imaging was integrated into the [employer] navigation software and the virtual lesion was updated. After confirming our location, we proceeded to sampling. Transbronchial needle aspiraiton (TBNA) was performed of the lesion using the [employer] TBNA 21G needle. A total of 6 passes were formed. (38220) Transbronchial biopsies of the lesion were performed using the captura 1.8 mm forceps and 1.1 cryoprobe). A total of 12 samples were obtained. (51496) Endobronchial brushings performed down the airway towards the lesion. A total of 2 brushings were obtained. (37915) A bronchoalveolar lavage was performed of the lobe containing the target lesion with 80 mL of saline instilled and 40 mL of effluent returned. Additional rinse from the robotic bronchoscope lumen was added to the sample after removal of the scope. (88047) Then, we navigated towards the lesion in the RUL nodule using a pre-planned route using virtual bronchoscopy Prior to sampling, confirmation of lesion location was done using: - Radial ultrasound probe with a concentric view (61094), - Fluroscopy with a tool overlying the lesion on at least one visual plane. - Virtual target located directly within the path of intended biopsy direction on shape sensing! - Cone Beam intraoperative CT was performed [address] imaging interpretation was utilized for guidance for needle placement. Imaging interpretation by me shows the persistent lesion as well as a tool within the lesion (37930) - CBCT data from the intraoperative imaging was integrated into the [employer] navigation software and the virtual lesion was updated. After confirming our location, we proceeded to sampling. Transbronchial needle aspiraiton (TBNA) was performed of the lesion using the ION TBNA 21G needle. A total of 6 passes were formed. (44373) Transbronchial biopsies of the lesion were performed using the captura 1.8 mm forceps and 1.1 cryoprobe). A total of 12 samples were obtained. (15620) I used new tools for every single nodule. So everything was changed for every nodule. Robotic scope was removed T scope was reinserted to achieve and inspected hemostasis and there was no significant bleeding. The prior bronchoscope was removed from the airway and the EBUS scope was inserted. A complete curvilinear EBUS procedure was performed of the following lymph nodes: Level 11L station was identified with the EBUS scope at the LLL/L hilum and 4 passes were made using a 22G Olympus TBNA needle. Level 4L station was identified with the EBUS scope which did not meet the criteria of sampling Level 7 station was identified with the EBUS scope at the medial LMSB/RMSB and 4 passes were made using a 22G Olympus TBNA needle. Level 4R station was identified with the EBUS scope at the lateral RMSB and did not meet criteria for sampling. Level 11R station was identified with the EBUS scope at the RBI/R hilum and did not meet the criteria for sampling. [place] Bleeding Scale Grade 1: Suctioning <1 minute. Bleeding of no clinical consequence to patient or provider. Following completion of all diagnostic and therapeutic procedures, hemostasis was verified. The scope was removed and procedure concluded. In summary, the following procedures were performed: 78795 [place] (Endobronchial Brushing(s), 04441 BAL, (Bronchoalveolar Lavage), 89389 TBBX, (Transbronchial biopsies, first lobe), 21108 TBBX +addl lobe, (Transbronchial biopsies, +addl lobe), 07176 pTBNA, (peripheral transbronchial needle aspiration), 87855 pTBNA +addl lobe, (peripheral transbronchial needle aspiration +1 addl lobe), 44424 cEBUS 1?2 lesions, (Central curvelinear EBUS), 77177 pEBUS (peripheral/radial EBUS), 90623 [place], (Navigation bronchoscopy, [employer], Cyphort), 30965: CT guidance for needle placement, 56920 ? Thoracentesis, needle or catheter, aspiration of the pleural space; with imaging guidance (i.e., ultrasound) Tone Denny MD, FACP, FASN Interventional Pulmonary Procedure:
== END 2025-01-05 17:40 | disposition home or self-care (01) ==
PROVIDERS: PCP Family Medicine; Visit Provider Internal Medicine
PROC: 0BJ08ZZ Inspection of Tracheobronchial Tree, Via Natural or Artificial Opening Endoscopic (ICD-10-PCS; CPT 31622; principal; 2025-01-05 12:00)
PROC: 0BJ08ZZ Inspection of Tracheobronchial Tree, Via Natural or Artificial Opening Endoscopic (ICD-10-PCS; CPT 31622; 2025-01-05 12:00)
PROC: BB4BZZZ Ultrasonography of Pleura (ICD-10-PCS; 2025-01-05 12:00)
PROC: (CPT 32554; 2025-01-05 12:00)
DX: C34.31 Malignant neoplasm of lower lobe, right bronchus or lung (principal); C34.11 Malignant neoplasm of upper lobe, right bronchus or lung; J90 Pleural effusion, not elsewhere classified; J44.9 Chronic obstructive pulmonary disease, unspecified; I10 Essential (primary) hypertension; I82.409 Acute embolism and thrombosis of unspecified deep veins of unspecified lower extremity; Z85.3 Personal history of malignant neoplasm of breast; E03.9 Hypothyroidism, unspecified; Z79.01 Long term (current) use of anticoagulants; D50.9 Iron deficiency anemia, unspecified; E78.5 Hyperlipidemia, unspecified; Z95.820 Peripheral vascular angioplasty status with implants and grafts; E66.9 Obesity, unspecified; Z68.31 Body mass index [BMI] 31.0-31.9, adult
CPT/HCPCS: 31623; 31628; 31629; 31632; 31633; 31652; 31654; 32555; 71045; 76000; 80503; 82042; 82465; 82945; 83615; 84157; 84478; 87015; 87116; 87206; 87801; 88112; 88173; 88305; 88309; 88342; 89050; A9270; J0169; J2405; J2704; J2919; J3010; J3490; J7030; J9999

== ENCOUNTER 2025-01-10 13:00 | Oncology outpatient (recurring) (ONCR) | payer MEDICARE, MEDICAID, SELFPAY ==
--- NOTE | 2024-12-24 14:15 | USCV_ITS ---
Janet Calvillo Age: 84 Gender: F : 1940 Exam Date: 12/24/2024 14:16 Ordering Phys: Tone Denny MD Technologist: Harrison Castro Exam Location: [facility] – [place], [place] Indication: hx of ao pros BP: 120 / 70 HR: 76 Rhythm: Sinus Technical Quality: Adequate MEASUREMENTS (Male / Female) Normal Values 2D ECHO LV Diastolic Diameter PLAX 3.7 cm 4.2 - 5.9 / 3.9 - 5.3 cm IVS Diastolic Thickness 1.3 cm 0.6 - 1.0 / 0.6 - 0.9 cm IVS Systolic Thickness 2.0 cm LVPW Diastolic Thickness 1.3 cm 0.6 - 1.0 / 0.6 - 0.9 cm LVPW Systolic Thickness 1.7 cm LVOT Diameter 2.0 cm LV Ejection Fraction 2D Teich 65.2 % LV Ejection Fraction MOD 4C 69.5 % LV Ejection Fraction MOD 2C 69.1 % LV Ejection Fraction 2C AL 68.3 % LA Diameter 3.5 cm RA Systolic Volume 4C AL 39.5 ml RA Systolic Volume 4C MOD 38.1 ml Aorta at Sinotubular Diameter 2.9 cm IVC Diameter 1.6 cm M-MODE LA Ao Ratio MM 1.2 AV Cusp Separation MM 1.9 cm DOPPLER AV Peak Velocity 155.0 cm/s LVOT Peak Velocity 103.0 cm/s AV Area Cont Eq vti 2.5 cm squared AV Area Cont Eq pk 2.1 cm squared MV Peak Velocity 181.0 cm/s TV Peak Velocity 233.5 cm/s TR Peak Velocity 310.0 cm/s TR Peak Gradient 38.4 mmHg TV Peak E Velocity 90.0 cm/s PV Peak Velocity 114.0 cm/s FINDINGS Left Ventricle Normal left ventricular size and systolic function, EF 60-65%. No regional wall motion abnormalities. Right Ventricle Normal right ventricular size and systolic function. Right Atrium Normal right atrial size. Left Atrium Normal left atrial size. Mitral Valve Mitral annular calcification. No significant stenosis. Mild mitral regurgitation Aortic Valve Bioprosthetic aortic valve. No significant stenosis or regurgitation Tricuspid Valve Mild tricuspid valve regurgitation. RVSP is 35-40mmHg. This is consistent with mild pulmonary hypertension Pulmonic Valve Not well visualized Pericardium Normal Aorta Normal in size IVC Appears to be normal CONCLUSIONS LV systolic function is normal with EF of 60-65% Mild mitral regurgitation Bioprosthetic aortic valve seen. No significant stenosis Mild tricuspid regurgitation. Mild pulmonary hypertension Shabbir Momin MD (Electronically Signed) Final Date: 02 January 2025 18:38 S
--- NOTE | 2024-12-31 14:30 | CT_ITS ---
WS: [id number] CT CHEST TECHNIQUE: Noncontrast CT of the chest with coronal and sagittal reformatted images. CLINICAL INFORMATION: Pre procedure COMPARISON: PET/CT 11/05/2024 DLP: [address] scans at [facility] use at least one of these dose optimization techniques: automated exposure control; mA and/or kV adjustment per patient size (includes targeted exams where dose is matched to clinical indication); or iterative reconstruction. FINDINGS: Innumerable bilateral pulmonary nodules scattered throughout both lungs more numerous in the RIGHT lung. Largest nodules measure approximately 3 to 3.5 cm cm. Some of these abut the pleura. Pulmonary nodules demonstrated increased FDG activity on the prior PET/CT compatible with metastatic disease. FDG avid RIGHT hilar lymphadenopathy. The number and size of pulmonary nodules appears progressed since the prior PET/CT. Surgical clips LEFT breast and axilla. Aortic calcification. Coronary calcification. Aortic root graft. RIGHT central venous catheter. Small RIGHT pleural effusion. No axillary lymphadenopathy. Cholecystectomy clips. Adrenal glands are normal. Thoracic kyphosis. CT/CT chest ION (PULM ONLY) 20879 IMPRESSION: 1. Images obtained for intraoperative bronchoscopy navigation
== END 2025-01-18 23:59 | disposition home or self-care (01) ==
PROVIDERS: PCP Family Medicine; Visit Provider Internal Medicine Medical Oncology
DX: Z45.2 Encounter for adjustment and management of vascular access device; C50.412 Malignant neoplasm of upper-outer quadrant of left female breast; Z17.1 Estrogen receptor negative status [ER-]; E03.9 Hypothyroidism, unspecified; Z95.828 Presence of other vascular implants and grafts; Z92.3 Personal history of irradiation; Z92.21 Personal history of antineoplastic chemotherapy; Z92.25 Personal history of immunosuppression therapy; Z53.9 Procedure and treatment not carried out, unspecified reason
CPT/HCPCS: 71250; 93306; 96523; 99214

== ENCOUNTER 2025-01-22 06:37 | Emergency (ER) | payer MEDICARE, MEDICAID, SELFPAY ==
[2025-01-22 06:38] VITALS: BP 129/67; PULSE 85; RESP 18; TEMP 36.6; O2SAT 91; BMI 31.4
--- OUTSIDE RECORDS SUMMARY | 2025-01-22 06:42 | XMS_ITS | Encounter Summary ---
Author Organization [facility] Address [address] [place] [address] Care Team Providers Care [employer] Name Role Phone Sánchez Macario MD Primary Care Provider [phone] [phone] Encounter Details Date Type Department Care Team [...] often do you attend chur ch or confucianist services? 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 No / Unsure 05/11/2021 10:11 AM MUSIC SUPERVISOR documented as of this encounter Plan of Treatment Upcoming Encounters Date Type Department Care Team (Late st Contact Info) Description 02/10/2025 11:30 AM CDT Appointment [facility] [address] [place] [address] Gallito Lance MD [address] [facility] [address] [place] [phone] 02/10/2025 1:00 PM CDT Office Visit [facility] [address] [facility] [address] [place] [phone] Sarita Oro, [facility] [address] [facility] [address] [place] [phone] 04/29/2025 4:00 PM MUSIC SUPERVISOR Office Visit [facility] [place] [address] [address] Sánchez Macario MD [address] [address] documented as of this encounter Visit Diagnoses Not on filedocumented in this encounter Additional Health Concerns Infection Onset Date Last Indicated Resolved Time COVID-19 05/11/2021 05/11/2021 05/31/2021 2:22 AM MUSIC SUPERVISOR R/O Respiratory 06/07/2021 06/07/2021 06/07/2021 1 0:14 PM MUSIC SUPERVISOR COVID-19 04/18/2023 04/18/2023 05/08/2023 1:16 AM MUSIC SUPERVISOR R/O C. diff 09/04/2023 09/04/2023 09/04/2023 11:4 7 PM CDT R/O COVID-19 09/04/2023 09/04/2023 09/04/2023 6:46 PM CDT R/O COVID-19 11/11/2023 11/11/2023 11/11/2023 1:08 PM CDT Assessment Noted Time PHQ-9 Depression Total Score: 1 12/14/19 21 11:24 AM CDT documented as of this encounter Care Teams [employer] Relationship Specialty Start Date End Date Sánchez Macario MD [address] [phone] PCP - General Family Practice 04/10/21 documented as of this encounter
--- OUTSIDE RECORDS SUMMARY | 2025-01-22 06:42 | XMS_ITS ---
Author Organization [facility] Address [address] [place] [address] [address] [place] [address] Care Team Providers Care Software Development Engineer Name Role Phone Sánchez Macario MD Primary Care Provider [phone] [phone] Active Problems Problem Noted Date Diagnosed Date [...] from 03/27/2024:Stage IIIB(cT3, cN0, cM0, G3, ER-, OR-, HER2-) - Signed by Vale Palacios DO on 03/27/2024 Pathologic stage from 06/08/2024:Stage IIIA(pT3, pN0(sn), cM0, G3, ER-, OR-, HER2-) - Signed by Cristina Soto MD [...] Min 248.46 mGy 248.46 mGy 0 mGy Fluoro 21 Minutes 0 Minutes 21 Minutes Air Kerma 151 mGy 0 mGy 151 [...]
--- OUTSIDE RECORDS SUMMARY | 2025-01-22 06:42 | XMS_ITS | Encounter Summary ---
Author Organization [facility] Address [address] [place] [address] Care Team Providers Care Roofer Name Role Phone Fabiola Soto MD Primary Care Provider [phone] Encounter Details Date Type Department Care Team (Late st Contact Info) Description 01/20/2019 Ancillary Orders [facility] [address] [facility] [address] [place] [address] Jorgito Meza PA NO ADDRESS [...] on file Legal Sex Female 5:07 AM COGNOS LEAD Gender Identity Not on file Sexual Orientation [...] documented as of this encounter Care Teams Roofer Relationship Specialty Start Date End Date Fabiola Soto MD [address] [phone] PCP - General Family Practice 05/27/13 documented as of this encounter
--- OUTSIDE RECORDS SUMMARY | 2025-01-22 06:42 | XMS_ITS | Clinical Summary ---
Author Organization [facility] Address [address] [facility] [address] [place] [address] Care Team Providers Care Insurance Sales Professional Name Role Phone Fabiola Soto MD Primary Care Provider [phone] [phone] Allergies Active Allergy Reactions Criticality Noted Date [...] (DVT) of femoral vein of left lower extremity,Posto perative pulmonary embolism, subsequent encounter ([facility]) Bath step for entrance to the bath [...] often do you attend chur ch or episcopalian services? 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 Enter [employer] for Select DXA and the Femoral Neck [...] clinical management available online at [email or web address].[email or web address]/. Enter [employer] for Select DXA and the Femoral Neck BMD value. [facility] ORDERABLES Final Result from Last 3 Months or Most Recently Relevant to Health Maintenance Insurance MEDICAID [facility] MCR Advance Directives For more information, please contact: [phone] Documents on File Type Date Recorded Patient Corn Breeder Expl anation Advance Directive POA 06/17/2016 12:15 PM Advance Directive POA Care Teams Insurance Sales Professional Relationship Specialty Start Date End Date Fabiola Soto MD [address] [phone] PCP - General Family Practice 05/27/13
--- OUTSIDE RECORDS SUMMARY | 2025-01-22 06:42 | XMS_ITS | Encounter Summary ---
Author Organization [facility] Address [address] [place] [address] Care Team Providers Care Sec Accountant Name Role Phone Fabiola Soto MD Primary Care Provider [phone] [phone] Encounter Details Date Type Department Care Team (Late st Contact Info) Description 09/18/2013 Ancillary Orders [facility] [place] [address] [place] [address] Social History Tobacco Use Types Packs/Day Years Used Date Smoking Tobacco: Never Smokeless Tobacco: Never Alcohol Use Standard Drinks/Week Comments No 0 (1 standard drink = 0.6 oz pur e alcohol) Comments No Sex and Gender Information Value Date Recorded Sex Assigned at Not on file Legal Sex Female 5:07 AM COMMUNICATION 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 Gender Identity Not on file Sexual [...] - 170 ug/dL 09/18/2013 5:21 PM CDT [facility] Blood Collection / Unknown 09/18/2013 12:03 PM CDT 09/18/2013 12:03 PM CDT External Provider Mtnv CHEMISTRY ORDERABLES Jihan l Result Performing Organization Address [facility] Co de Phone Number [facility] CLIA # [id number] [address] [place] [address] * CREATININE (09/18/2013 12:03 PM CDT) Pathologist [facility] CREATININE 1.10 0.60 - 1.30 mg/dL 09/18/2013 1:41 PM CDT [facility] GFR 49 mL/min/1.7 3 sq meter 09/18/2013 1:41 PM CDT [facility] Comment: The GFR result is not clinically significant on patients <18 or >70 years of age. GFR, 59 mL/min/1.7 3 sq meter 09/18/2013 1:41 PM CDT [facility] Blood Collection / Unknown 09/18/2013 12:03 PM CDT 09/18/2013 12:03 PM CDT us External Provider Mtnv CHEMISTRY ORDERABLES Jihan l Result Performing Organization Address City/[facility]/ZIP Co de Phone Number [facility] CLIA # [id number] [address] [place] [address] * (ABNORMAL) ALT (09/18/2013 12:03 PM CDT) ALT 20(L) 30 - 65 U/L 09/18/2013 1:41 PM CDT [facility] [place] Blood Collection / Unknown 09/18/2013 12:03 PM CDT 09/18/2013 12:03 PM CDT us External Provider Mtnv CHEMISTRY ORDERABLES Jihan priya Result [facility] [place] CLIA # [id number] [address] [facility] [address] [place] [address] * (ABNORMAL) CBC WITH DIFFERENTIAL (09/18/2013 12:03 PM CDT) WBC 5.7 4.0 - 10.0 K/uL 09/18/2013 12:21 PM CDT [facility] [place] RBC 4.44 3.93 - 5.22 M/uL 09/18/2013 12:21 PM CDT [facility] [place] HEMOGLOBIN 13.6 11.2 - 15.7 g/dL 09/18/2013 12:21 PM CDT [facility] [place] HEMATOCRIT 41.5 34.1 - 44.9 % 09/18/2013 12:21 PM CDT [facility] [place] MCV 93.5 79.4 - 94.8 fL 09/18/2013 12:21 PM CDT [facility] [place] MCH 30.6 25.6 - 32.2 pg 09/18/2013 12:21 PM CDT [facility] [place] MCHC 32.8 32.2 - 35.5 g/dL 09/18/2013 12:21 PM CDT [facility] [place] RDW 13.4 11.0 - 14.5 % 09/18/2013 12:21 PM CDT Richard Pauer - [facility] [place] RDW-STDEV 44.1 36.9 - 56.9 fL 09/18/2013 12:21 PM CDT [facility] [place] PLATELETS 242 163 - 337 K/uL 09/18/2013 12:21 PM CDT Richard Pauer - [facility] [place] MPV 12.2 10.0 - 14.8 fL 09/18/2013 12:21 PM CDT Richard Pauer [facility] [place] NEUTROPHILS 63 34 - 71 % 09/18/2013 12:21 PM CDT [facility] [place] LYMPHOCYTES 21 19 - 52 % 09/18/2013 12:21 PM CDT [facility] [place] MONOCYTES 10 5 - 13 % 09/18/2013 12:21 PM CDT [facility] [place] EOSINOPHILS 4 1 - 6 % 09/18/2013 12:21 PM CDT [facility] [place] BASOPHILS 1 0 - 1 % 09/18/2013 12:21 PM CDT [facility] [place] NEUTROPHIL ABSOLUTE 3.63 1.56 - 6.13 K/uL 09/18/2013 12:21 PM CDT [facility] [place] LYMPHOCYTE ABSOLUTE 1.21 1.20 - 3.40 K/uL 09/18/2013 12:21 PM CDT [facility] [place] MONOCYTE ABSOLUTE 0.59(H) 0.24 - 0.36 K/uL 09/18/2013 12:21 PM CDT [facility] [place] EOSINOPHIL ABSOLUTE 0.22 0.04 - 0.36 K/uL 09/18/2013 12:21 PM CDT [facility] [place] BASOPHILS ABSOLUTE 0.08 0.01 - 0.08 K/uL 09/18/2013 12:21 PM CDT [facility] [place] IMMATURE GRANULOCYTES 0 % 09/18/2013 12:21 PM CDT [facility] [place] IMMATURE GRANULOCYTES ABSOLUTE 0.00 K/uL 09/18/2013 12:21 PM CDT [facility] [place] Blood Collection / Unknown 09/18/2013 12:03 PM CDT 09/18/2013 12:03 PM CDT us External Provider Mtnv HEMATOLOGY ORDERABLES Fin al Result [facility] [place] CLIA # [id number] [address] [place] [address] * (ABNORMAL) TSH (09/18/2013 12:03 PM CDT) TSH 4.94(H) 0.30 - 4.80 uIU/mL 09/18/2013 1:41 PM CDT [facility] [place] Blood Collection / Unknown 09/18/2013 12:03 PM CDT 09/18/2013 12:03 PM CDT us External Provider Mtnv CHEMISTRY ORDERABLES Jihan l Result Performing Organization Address City/[facility]/ZIP Co de Phone Number [facility] CLIA # [id number] [address] [place] [address] * HEMOGLOBIN A1C (09/18/2013 12:03 PM CDT) HEMOGLOBIN A1C 5.7 4.5 - 6.2 % 09/18/2013 1:01 PM CDT [facility] EST. AVG GLUCOSE, A1C 117 mg/dL 09/18/2013 1:01 PM CDT [facility] Blood Collection / Unknown 09/18/2013 12:03 PM CDT 09/18/2013 12:03 PM CDT External Provider Monv CHEMISTRY ORDERABLES Jihan l Result Performing Organization Address [facility] Co de Phone Number [facility] CLIA # [id number] [address] [place] [address] * (ABNORMAL) LIPID PANEL (09/18/2013 12:03 PM CDT) CHOLESTEROL 235(H) 130 - 200 mg/dL 09/18/2013 1:41 PM CDT [facility] TRIGLYCERIDE 121 30 - 200 mg/dL 09/18/2013 1:41 PM CDT [facility] HDL 51 35 - 80 mg/dL 09/18/2013 1:41 PM CDT [facility] LDL CALCULATED 160(H) 0 - 100 mg/dL 09/18/2013 1:41 PM CDT [facility] [employer] [facility] Blood Collection / Unknown 09/18/2013 12:03 PM CDT 09/18/2013 12:03 PM CDT Narrative [facility] [employer] [facility] - 09/18/2013 1:41 PM CDT TOTAL CHOLESTEROL [...] Jihan l Result [facility] CLIA # [id number] [address] [address] documented in this encounter Visit Diagnoses Not on filedocumented in this encounter Additional Health Concerns Infection Onset Date Last Indicated Resolved Time R/O C. diff 10/16/2020 10/16/2020 10/16/2020 11:1 0 AM CDT documented as of this encounter Care Teams Sec Accountant Relationship Specialty Start Date End Date Fabiola Soto MD [address] [phone] PCP - General Family Practice 05/27/13 documented as of this encounter
--- OUTSIDE RECORDS SUMMARY | 2025-01-22 06:42 | XMS_ITS | Encounter Summary ---
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
--- OUTSIDE RECORDS SUMMARY | 2025-01-22 06:42 | XMS_ITS | Clinical Summary ---
Author Organization [facility] Address [address] [place] [address] [address] [place] [address] Care Team Providers Care Event Security Officer Name Role Phone Sánchez Macario MD Primary Care Provider [phone] Allergies Active Allergy Reactions Criticality Noted Date [...] (DVT) of femoral vein of left lower extremity,Postope rative pulmonary embolism, subsequent encounter ([facility]) Bath step for entrance to the [...] Pain. 10 Tablet 06/04/19 25 2:49 PM BOILER PLANT WORKER 025 Active ondansetron (ZOFRAN ODT) 4 mg Tablet, Rapid Dissolve Take 1 Tablet (4 mg) by mouth every 8 hours as needed for Nausea/Emesis. Dissolve tablet on top of tongue, then swallow with saliva. 10 Tablet 1 06/04/19 25 2:49 PM BOILER PLANT WORKER 025 Active levothyroxine 137 mcg tabletIndications :Acquired [...] WITH BREAKFAST 90 Tablet 3 025 Active meclizine (ANTIVERT) 25 mg tablet TAKE 1 TABLET(25 MG) BY MOUTH THREE TIMES DAILY NEEDED FOR DIZZINESS 90 Tablet 2 025 Active FLUoxetine (PROzac) 40 mg capsuleIndication s:Seasonal affective disorder TAKE 1 CAPSULE(40 MG) BY MOUTH DAILY 100 Capsule 1 08/08/2 025 Active hydrocortisone (CORTEF) 20 mg tablet TAKE 1 TABLET BY MOUTH ONCE DAILY IN THE MORNING AND 1/2 (ONE-HALF) ONCE DAILY IN THE EVENING 150 Tablet 025 Active hydrocortisone (CORTEF) 20 mg tablet Take 1 (20 mg) tablet in the AM and 1/2 (10mg) tablet in the evening. 150 Tablet 025 2024 Discontinued Active Problems Problem Noted Date Diagnosed Date [...] from 03/27/2024:Stage IIIB(cT3, cN0, cM0, G3, ER-, PA-, HER2-) - Signed by Vale Palacios DO on 03/27/2024 Pathologic stage from 06/08/2024:Stage IIIA(pT3, pN0(sn), cM0, G3, ER-, PA-, HER2-) - Signed by Cristina Soto MD [...] Overview (08/18/2020): ADDED PER PVQ RESPONSE DOS 9. Personal history of DVT (deep vein thrombosis) [...] Encounters Date Type Department Care Team Description 01/18/2025 External Device Data STL ABSTRACTION Provider, Abstract 01/17/2025 Abstract [facility] Medicine [place] [address] [address] Provider, Abstract 01/04/2025 Refill [facility] [address] [place] [address] Sánchez Macario MD 12/22/2024 External Device Data STL ABSTRACTION Provider, Abstract 12/14/2024 External Device Data STL ABSTRACTION Provider, Abstract 11/26/2024 Refill [facility] [address] [phone] Sánchez Macario MD Seasonal affective disorder 11/16/2024 External Device Data STL ABSTRACTION Provider, Abstract 11/08/2024 Orders Only [address] [address] Provider, Abstract 11/08/2024 Abstract [facility] [address] [address] Sánchez Macario MD 11/03/2024 External Device Data STL ABSTRACTION Provider, Abstract 11/01/2024 Abstract [facility] [address] [facility] [place] [address] Provider, Abstract 11/01/2024 Abstract [facility] [address] [facility] [place] [address] Provider, Abstract 10/26/2024 External Device Data STL ABSTRACTION Provider, Abstract from Last 3 Months Immunizations Immunization Administration Dates Next Due (PREVNAR 20)(6 WKS UP) PNEUM OCOCCAL CONJUGATE VACCINE 20-VALENT (PCV20), POLYSACCHARIDE PUI450 CONJUGATE, ADJUVANT 0.5 ML (PF) IM 07/06/2024 [...] often do you attend chur ch or uatsdin services? Never 01/05/2020 Do you belong to [...] Master's degree (e.g., MA, MS, Omid, MEd, PRINTING SCREEN ASSEMBLER, TYSHAWN) 06/05/2021 Comments No Sex and Gender Information Value Date Recorded Sex Assigned at Not on file Legal Sex Female 9:22 AM BOILER PLANT WORKER Gender Identity Not on file Sexual Orientation [...] Info) Description 02/10/2025 11:30 AM CDT Appointment [facility] [address] [facility] [place] [address] Gallito Lance MD [address] [facility] [address] [place] [address] 02/10/2025 1:00 PM CDT Office Visit [facility] [address] [facility] [address] [place] [address] Sarita Oro, [facility] [address] [facility] [address] [place] [address] 04/29/2025 4:00 PM BOILER PLANT WORKER Office Visit [facility] [address] [address] Sánchez Macario MD [address] [address] Health Maintenance Due Date Last Done Comments DTAP/TDAP/TD VACCINES (1 - Tdap) 07/09/1959 RSV VACCINE (60+ or ) (1 - 1-dose 75+ series) 07/09/2015 ZOSTER VACCINE (2 of 2) 02/12/2019 12/18/2018, 12/18 [place] Preventative Visit/Annual Wellness Visit 04/21/2024 02/04/2024, 09/30/2022, 09/25/2021, Additional history exists INFLUENZA VACCINE (#1) 2024 4, 08/09/2022, 04/10/2021, Additional history exists OSTEOPOROSIS SCREENING 11/09/2028 4, 01/06/2019, 01/06/2019, Additional history exists Colorectal Cancer Screening Discontinued FIT-DNA Q 3 years Discontinued 12/26/2020 PNEUMOCOCCAL VACCINE 50+ YEARS Completed 0 07/06/2024, 09/05/2014, 09/07/2005 COLORECTAL SCREENING Discontinued FIT/FOBT Q 1 year Discontinued Flex Sig/CT Colonography Q 5 years Discontinued Medical Devices Implanted Type Area Licensing Court Magistrate Device Identifier Shelf Expiration Date Model / Serial / Lot Clip Ligating Horizon Red [id number] - [facility] - [id number] Implanted:Qty: 1 on 06/03/2024 by Vale Palacios DO at [facility] Clip Left: Breast TELE[employer]LEX INC [id number] 02/04/2029 [id number] / / [id number] Clip Ligating Horizon Med Ti [id number] - [facility] - [id number] Implanted:Qty: 1 on 06/03/2024 by Vale Palacios DO at [facility] Clip Left: Breast TELEFLEX- WECK CLOSURE SYS [id number] 02/04/2029 [id number] / / [id number] Clip Ligating Horizon Sm [id number] - [id number] Implanted:Qty: 1 on 06/03/2024 by Vale Palacios DO at [facility] Clip Left: Breast TELE[employer]LEX INC [id number] 12/30/2026 / / [id number] Clip Ligating Horizon Med Ti [id number] - [facility] - [id number] Implanted:Qty: 1 on 06/03/2024 by Vale Palacios DO at [facility] Clip Left: Breast TELEFLEX- WECK CLOSURE SYS [id number] 11/23/2028 / / [id number] Clip Ligating Horizon Med Ti 677537 - Csc - [id number] Implanted:Qty: 1 on 06/03/2024 by Vale Palacios DO at [facility] Clip Left: Breast TELEFLEX- WECK CLOSURE SYS [id number] 01/06/2029 / / [id number] Closure Perclose Prostyle Sut Mediate 72855-68 - [id number] Implanted:Qty: 1 on 02/17/2024 by Gallito Lance MD at [facility] Closure Device Right: Groin FLYNN- VASC DEVICE [id number] 11/18/2025 00536-66 / / [id number] Closure Perclose Prostyle Sut Mediate 41884-63 - [id number] Implanted:Qty: 1 on 02/17/2024 by Gallito Lance MD at [facility] Closure Device Right: Groin FLYNN- VASC DEVICE [id number] 11/18/2025 19574-61 / / [id number] Closure Perclose Prostyle Sut Mediate 95582-48 - [id number] Implanted:Qty: 1 on 02/17/2024 by Gallito Lance MD at [facility] Closure Device Right: Groin FLYNN- VASC DEVICE [id number] 11/18/2025 17382-84 / / [id number] Closure Angioseal 6fr Vip [id number] - [id number] Implanted:Qty: 1 on 02/17/2024 by Gallito Lance MD at [facility] Closure Device Left: Groin TERUMO- CARDIOVASC SYS 09/24/2024 [id number] / / [id number] Vlv Aort Evolut Fx Tavr 26mm Evolutfx-26 - [id number] Implanted:Qty: 1 on 02/17/2024 by Gallito Lance MD at [facility] Valve Left: Heart MEDTRONIC- HEART VALVE [id number] 07/06/2025 EVOLUTFX -26 / [id number] / Procedures Procedure Name Priority Date/Time Associated Diagnosis Comments COMPREHENSIVE METABOLIC PANEL Routine 10/25/2024 10:34 AM CDT PROTIME-INR Routine 10/25/2024 XR DEXA BONE DENSITY AXIAL 1 OR MORE SITES Routine 11/10/2023 11:10 AM CDT Osteoporosis, unspecified osteoporosis type, unspecified pathological fracture presence COLON CANCER SCREEN, STOOL DNA Routine 12/26/2020 2:45 PM CDT Screening for colon cancer from Last 3 Months or Most Recently Relevant to Health Maintenance Results * COMPREHENSIVE METABOLIC PANEL (10/25/2024 10:34 AM CDT) Blood us Abstract Provider CHEMISTRY ORDERABLES Final Res ult * PROTIME-INR (10/25/2024) ABSTRACTED PROTIME 16.8 ABSTRACTED INR 1.27 Blood 10/25/2024 us Abstract Provider HEMATOLOGY ORDERABLES Final Re sult * (ABNORMAL) XR DEXA BONE DENSITY AXIAL [...] clinical management available online at [email or web address]/. Enter goOutMap for Select DXA and the Femoral Neck [...] clinical management available online at www.[email or web address].[email or web address]/[email or web address]/. Enter goOutMap for Select DXA and the Femoral Neck BMD value. Sánchez Macario MD DIAGNOSTIC IMAGING ORDERA BLES Final Result * COLON CANCER SCREEN, STOOL DNA (12/26/2020 2:45 PM CDT) [facility] COLOGUARD RESULT Negative Negative [facility] Comment: NEGATIVE TEST RESULT. A negative [...] (Piotr Rosario al, N Engl J Med 2014;370(14):3909-7461) The normal value (reference range) for this assay is negative. COLOGUARD RE-SCREENING RECOMMENDATION: Periodic colorectal cancer screening is an important part of preventive healthcare for asymptomatic individuals at average risk for colorectal cancer. Following a negative Cologuard result, the [place] Cancer Society and U.S. Multi-Society Task Force screening guidelines recommend a Cologuard re-screening interval of 3 years. References: [place] [employer] Society Guideline for Colorectal Cancer Screening: https://www.cancer.org/cancer/qlzrj-djwspw-fvjhax/pxymxhckt-gvceagcnr-exujfba/ac s-rec ommendations.html.; Varun DK, May CR, Denisse JassoK, Colorectal Cancer Screening: Recommendations for Physicians and Patients from the U.S. Multi-Society Task Force on Colorectal Cancer Screening , Am J Gastroenterology 2017; 112:1336-8725. TEST DESCRIPTION: Composite algorithmic analysis of stool [...] (Piotr Rosario al, N Engl J Med 2014;370(14):7660-9195.) Cologuard may produce a false negative or false positive result (no colorectal cancer or precancerous polyp present at colonoscopy follow up). A negative Cologuard test result does not guarantee the absence of CRC or advanced adenoma (pre-cancer). The current Cologuard screening interval is every 3 years. ([place] Cancer Society and U.S. Multi-Society Task Force). Cologuard performance data in a 10,000 patient pivotal study using colonoscopy as the reference method can be accessed at the following location: www.finalsite.[employer]/results. Additional description of the Cologuard test process, warnings and precautions can be found at www.[employer]. Stool STOOL SPECIMEN / Unknown 12/26/2020 2:45 PM CDT 12/28/2020 12:18 AM CDT Jorg[facility] RIVERA BODY FLUIDS AND STOOLS Final Result [facility] CLIA # [id number] [address] , [address] [place] [address] from Last 3 Months or Most Recently Relevant to Health Maintenance Insurance MEDICAID [place] D[place] [employer]V[place] O [facility] Medicare Part D Advance Directives For more information, please contact: [phone] Documents on File Type Date Recorded Patient Family Dentist Expl anation Advance Directive POA 06/17/2016 12:16 [...] 2:42 AM 06/07/2021 6:46 PM Care Teams Event Security Officer Relationship Specialty Start Date End Date Sánchez Macario MD [address] [address] PCP - General Family Practice 04/10/21
--- OUTSIDE RECORDS SUMMARY | 2025-01-22 06:42 | XMS_ITS | Encounter Summary ---
Author Organization [facility] Address [address] [place] [address] Care Team Providers Care Yardmaster Name Role Phone Fabiola Soto MD Primary Care Provider [phone] Reason for Referral * Outpatient Services (Routine) - Closed Specialty Diagnoses / Procedures Referred By Cleopatra jimenez Referred To Contact Diagnoses Screening mammogram Procedures MAMMO SCREENING BILAT Philly Darling APRN NO ADDRESS ON FILE Referral ID Status Reason Start Date Expiration Date Visits Re quested Visits Authorized [id number] Closed 10/01/2010 03/30/2011 1 1 Encounter Details Date Type Department Care Team (Late st Contact Info) Description 10/01/2010 Ancillary Orders [facility] Imaging External Read [address] [place] [address] Philly Darling APRN NO ADDRESS ON FILE Screening mammogram Social History Tobacco Use Types Packs/Day Years Used Date Smoking Tobacco: Never Alcohol Use Standard Drinks/Week Comments Yes 4.2 (1 standard drink = 0.6 oz p ure alcohol) month Comments No Sex and Gender Information Value Date Recorded Sex Assigned at Not on file Legal Sex Female 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 A moderate amount [...] of trying to retrieve prior films from [facility]. Those are not available at the time [...] by the Computer Aided Detection system (CAD), [employer], Version 3.1. Procedure Note Elizabeth Rosas MD / Kurt Granados MD - 10/15/2010 BILATERAL SCREENING MAMMOGRAM: Bilateral CC and MLO views were obtained. We are in the process of tryingto retrieve prior films from [facility]. Those are not available at thetime of [...] analyzed by the Computer Aided Detection system(CAD), [employer], Version 3.1. IMPRESSION: Incomplete. Obtain priors. If [...] documented as of this encounter Care Teams Yardmaster Relationship Specialty Start Date End Date Fabiola Soto MD [address] [phone] PCP - General Family Practice 05/27/13 documented as of this encounter
--- OUTSIDE RECORDS SUMMARY | 2025-01-22 06:42 | XMS_ITS | Encounter Summary ---
Author Organization [facility] Address [address] [place] [address] Care Team Providers Care Mail Clerks Supervisor Name Role Phone Sánchez Macario MD Primary Care Provider [phone] Encounter Details Date Type Department Care Team [...] any clubs o r organizations such as hindu groups, unions, fraternal or athletic groups, or [...] on file Legal Sex Female 9:22 AM FILLING AND PACKING SUPERVISOR Gender Identity Not on file Sexual Orientation Not on file COVID-19 Exposure Response Date Recorded In the last month, have you been in contact with someone who was confirmed or suspected to have Coronavirus / COVID-19? No / Unsure 05/11/2021 10:11 AM FILLING AND PACKING SUPERVISOR documented as of this encounter Plan of Treatment Upcoming Encounters Date Type Department Care Team (Late st Contact Info) Description 02/10/2025 11:30 AM CDT Appointment [facility] [address] [place] [address] Gallito Lance MD [address] [facility] [address] [place] [phone] 02/10/2025 1:00 PM CDT Office Visit [facility] [address] [facility] [address] [place] [address] Sarita Oro, [facility] [address] [facility] [address] [place] [phone] 04/29/2025 4:00 PM FILLING AND PACKING SUPERVISOR Office Visit [facility] Family [facility] [place] [address] [address] Sánchez Macario MD [address] [address] documented as of this encounter Visit Diagnoses Not on filedocumented in this encounter Additional Health Concerns Infection Onset Date Last Indicated Resolved Time COVID-19 05/11/2021 05/11/2021 05/31/2021 2:22 AM FILLING AND PACKING SUPERVISOR R/O Respiratory 06/07/2021 06/07/2021 06/07/2021 1 0:14 PM FILLING AND PACKING SUPERVISOR COVID-19 04/18/2023 04/18/2023 05/08/2023 1:16 AM FILLING AND PACKING SUPERVISOR R/O C. diff 09/04/2023 09/04/2023 09/04/2023 11:4 7 PM CDT R/O COVID-19 09/04/2023 09/04/2023 09/04/2023 6:46 PM CDT R/O COVID-19 11/11/2023 11/11/2023 11/11/2023 1:08 PM CDT Assessment Noted Time PHQ-9 Depression Total Score: 1 12/14/19 21 11:24 AM CDT documented as of this encounter Care Teams Mail Clerks Supervisor Relationship Specialty Start Date End Date Sánchez Macario MD [address] [phone] PCP - General Family Practice 04/10/21 documented as of this encounter
--- OUTSIDE RECORDS SUMMARY | 2025-01-22 06:43 | XMS_ITS | Encounter Summary ---
Author Organization [facility] Address [address] [place] [address] Care Team Providers Care Job Checker Name Role Phone Sánchez Macario MD Primary Care Provider [phone] Encounter Details Date Type Department Care Team [...] often do you attend chur ch or catholic services? Never 01/05/2020 Do you belong to [...] on file Legal Sex Female 9:22 AM COMBUSTION ENGINEER Gender Identity Not on file Sexual Orientation Not on file COVID-19 Exposure Response Date Recorded In the last month, have you been in contact with someone who was confirmed or suspected to have Coronavirus / COVID-19? Yes 05/18/2021 1:41 PM COMBUSTION ENGINEER documented as of this encounter Plan of Treatment Upcoming Encounters Date Type Department Care Team (Late st Contact Info) Description 02/10/2025 11:[address] [facility] Echo [address] [place] [phone] Gallito Lance MD [address] [facility] [address] [place] [phone] 02/10/2025 1:00 PM CDT Office Visit [facility] [address] [facility] [address] [place] [phone] Sarita Oro, [facility] [address] [facility] [address] [place] [phone] 04/29/2025 4:00 PM COMBUSTION ENGINEER Office Visit [facility] Family Medicine [place] [address] [address] Sánchez Macario MD [address] [phone] documented as of this encounter Visit Diagnoses Not on filedocumented in this encounter Additional Health Concerns Infection Onset Date Last Indicated Resolved Time COVID-19 05/11/2021 05/11/2021 05/31/2021 2:22 AM COMBUSTION ENGINEER R/O Respiratory 06/07/2021 06/07/2021 06/07/2021 1 0:14 PM COMBUSTION ENGINEER COVID-19 04/18/2023 04/18/2023 05/08/2023 1:16 AM COMBUSTION ENGINEER R/O C. diff 09/04/2023 09/04/2023 09/04/2023 11:4 7 PM CDT R/O COVID-19 09/04/2023 09/04/2023 09/04/2023 6:46 PM CDT R/O COVID-19 11/11/2023 11/11/2023 11/11/2023 1:08 PM CDT Assessment Noted Time PHQ-9 Depression Total Score: 1 12/14/19 11:24 AM CDT documented as of this encounter Care Teams Job Checker Relationship Specialty Start Date End Date Sánchez Macario MD [address] [phone] PCP - General Family Practice 04/10/21 documented as of this encounter
--- OUTSIDE RECORDS SUMMARY | 2025-01-22 06:43 | XMS_ITS | Encounter Summary ---
Author Organization [facility] Address [address] [place] [address] Care Team Providers Care Technology Professional Name Role Phone Sánchez Macario MD Primary Care Provider [phone] Encounter Details Date Type Department Care Team [...] often do you attend chur ch or latter-day services? Never 01/05/2020 Do you belong to [...] on file Legal Sex Female 9:22 AM GEMOLOGIST Gender Identity Not on file Sexual Orientation Not on file COVID-19 Exposure Response Date Recorded In the last month, have you been in contact with someone who was confirmed or suspected to have Coronavirus / COVID-19? Yes 05/18/2021 1:41 PM GEMOLOGIST documented as of this encounter Plan of Treatment Upcoming Encounters Date Type Department Care Team (Late st Contact Info) Description 02/10/2025 11:30 AM CDT Appointment [facility] Echo [address] [place] [phone] Gallito Lance MD [address] [facility] [address] [place] [phone] 02/10/2025 1:00 PM CDT Office Visit [facility] [address] [facility] [address] [place] [phone] Sarita Oro, [facility] [address] [facility] [address] [place] [phone] 04/29/2025 4:00 PM GEMOLOGIST Office Visit [facility] Family Medicine [place] [address] [phone] Sánchez Macario MD [address] [phone] documented as of this encounter Visit Diagnoses Not on filedocumented in this encounter Additional Health Concerns Infection Onset Date Last Indicated Resolved Time COVID-19 05/11/2021 05/11/2021 05/31/2021 2:22 AM GEMOLOGIST R/O Respiratory 06/07/2021 06/07/2021 06/07/2021 1 0:14 PM GEMOLOGIST COVID-19 04/18/2023 04/18/2023 05/08/2023 1:16 AM GEMOLOGIST R/O C. diff 09/04/2023 09/04/2023 09/04/2023 11:4 7 PM CDT R/O COVID-19 09/04/2023 09/04/2023 09/04/2023 6:46 PM CDT R/O COVID-19 11/11/2023 11/11/2023 11/11/2023 1:08 PM CDT Assessment Noted Time PHQ-9 Depression Total Score: 1 12/14/19 11:24 AM CDT documented as of this encounter Care Teams Technology Professional Relationship Specialty Start Date End Date Sánchez Macario MD [address] [phone] PCP - General Family Practice 04/10/21 documented as of this encounter
--- OUTSIDE RECORDS SUMMARY | 2025-01-22 06:43 | XMS_ITS | Encounter Summary ---
Author Organization [facility] Address [address] [place] [address] Care Team Providers Care Revenue Tax Specialist Name Role Phone Sánchez Macario MD Primary Care Provider [phone] Encounter Details Date Type Department Care Team [...] any clubs o r organizations such as samaritan groups, unions, fraternal or athletic groups, or [...] on file Legal Sex Female 9:22 AM EXHIBITION SPECIALIST Gender Identity Not on file Sexual Orientation Not on file COVID-19 Exposure Response Date Recorded In the last month, have you been in contact with someone who was confirmed or suspected to have Coronavirus / COVID-19? Yes 05/18/2021 1:41 PM EXHIBITION SPECIALIST documented as of this encounter Plan of Treatment Upcoming Encounters Date Type Department Care Team (Late st Contact Info) Description 02/10/2025 11:30 AM CDT Appointment [facility] [address] [place] [phone] Gallito Lance MD [address] [facility] [address] [place] [phone] 02/10/2025 1:00 PM CDT Office Visit [facility] [address] [facility] [address] [place] [phone] Sarita Oro, [facility] [address] [facility] [address] [place] [phone] 04/29/2025 4:00 PM EXHIBITION SPECIALIST Office Visit [facility] Family Medicine [place] [address] [phone] Sánchez Macario MD [address] [phone] documented as of this encounter Visit Diagnoses Not on filedocumented in this encounter Additional Health Concerns Infection Onset Date Last Indicated Resolved Time COVID-19 05/11/2021 05/11/2021 05/31/2021 2:22 AM EXHIBITION SPECIALIST R/O Respiratory 06/07/2021 06/07/2021 06/07/2021 1 0:14 PM EXHIBITION SPECIALIST COVID-19 04/18/2023 04/18/2023 05/08/2023 1:16 AM EXHIBITION SPECIALIST R/O C. diff 09/04/2023 09/04/2023 09/04/2023 11:4 7 PM CDT R/O COVID-19 09/04/2023 09/04/2023 09/04/2023 6:46 PM CDT R/O COVID-19 11/11/2023 11/11/2023 11/11/2023 1:08 PM CDT Assessment Noted Time PHQ-9 Depression Total Score: 1 12/14/19 11:24 AM CDT documented as of this encounter Care Teams Revenue Tax Specialist Relationship Specialty Start Date End Date Sánchez Macario MD [address] [phone] PCP - General Family Practice 04/10/21 documented as of this encounter
--- OUTSIDE RECORDS SUMMARY | 2025-01-22 06:43 | XMS_ITS | Encounter Summary ---
[facility] Organization [facility] Address [address] [place] [address] Care Team Providers Care Juice Weigher Name Role Phone Sánchez Macario MD Primary Care Provider +1 -[phone] Encounter Details Date Type Department Care Team [...] often do you attend chur ch or zoroastrianism services? Never 01/05/2020 Do you belong to any clubs o r organizations such as caodaism groups, unions, fraternal or athletic groups, or [...] on file Legal Sex Female 9:22 AM GERIATRIC NURSE Gender Identity Not on file Sexual Orientation Not on file COVID-19 Exposure Response Date Recorded In the last month, have you been in contact with someone who was confirmed or suspected to have Coronavirus / COVID-19? Yes 05/18/2021 1:41 PM GERIATRIC NURSE documented as of this encounter Plan of Treatment Upcoming Encounters Date Type Department Care Team (Late st Contact Info) Description 02/10/2025 11:30 AM CDT Appointment [facility] Echo [address] [place] [phone] Gallito Lance MD [address] [facility] [address] [place] [phone] 02/10/2025 1:00 PM CDT Office Visit [facility] [address] [facility] [address] [place] [phone] Sarita Oro, [facility] [address] [facility] [address] [place] [phone] 04/29/2025 4:00 PM GERIATRIC NURSE Office Visit [facility] [place] [address] [address] Sánchez Macario MD [address] [phone] documented as of this encounter Visit Diagnoses Not on filedocumented in this encounter Additional Health Concerns Infection Onset Date Last Indicated Resolved Time COVID-19 05/11/2021 05/11/2021 05/31/2021 2:22 AM GERIATRIC NURSE R/O Respiratory 06/07/2021 06/07/2021 06/07/2021 1 0:14 PM GERIATRIC NURSE COVID-19 04/18/2023 04/18/2023 05/08/2023 1:16 AM GERIATRIC NURSE R/O C. diff 09/04/2023 09/04/2023 09/04/2023 11:4 7 PM CDT R/O COVID-19 09/04/2023 09/04/2023 09/04/2023 6:46 PM CDT R/O COVID-19 11/11/2023 11/11/2023 11/11/2023 1:08 PM CDT Assessment Noted Time PHQ-9 Depression Total Score: 1 12/14/19 11:24 AM CDT documented as of this encounter Care Teams Juice Weigher Relationship Specialty Start Date End Date Sánchez Macario MD [address] [phone] PCP - General Family Practice 04/10/21 documented as of this encounter
--- OUTSIDE RECORDS SUMMARY | 2025-01-22 06:43 | XMS_ITS | Encounter Summary ---
Author Organization [facility] Address [address] [place] [address] Care Team Providers Care Bench Worker Name Role Phone Fabiola Soto MD Primary Care Provider [phone]- [phone] Encounter Details Date Type Department Care Team (Late st Contact Info) Description 04/22/2006 Outpatient Historical [facility] [address] [place] [address] AMBULANCE, [facility] Headache (Primary Dx) Social History Tobacco Use Types Packs/Day Years Used Date Smoking Tobacco: Never Assessed Comments Unknown Sex and Gender Information Value Date Recorded Sex Assigned at Not on file Legal Sex Female 5:07 AM BOOT LINER MAKER Gender Identity Not on file Sexual Orientation Not on file documented as of this encounter Plan of Treatment Not on file documented as of this encounter Visit Diagnoses Diagnosis Headache(784.0)- Primary Headache documented in this encounter Additional Health Concerns Infection Onset Date Last Indicated Resolved Time R/O C. diff 10/16/2020 10/16/2020 10/16/2020 11:1 0 AM CDT documented as of this encounter Care Teams Bench Worker Relationship Specialty Start Date End Date Fabiola Soto MD [address] [facility] [address] [place] [phone] PCP - General Family Practice 05/27/13 documented as of this encounter
--- OUTSIDE RECORDS SUMMARY | 2025-01-22 06:43 | XMS_ITS | Encounter Summary ---
Author Organization [facility] Address [address] [place] [address] Care Team Providers Care Corporate Driver Name Role Phone Sánchez Macario MD Primary Care Provider +1 [phone] Encounter Details Date Type Department Care Team [...] often do you attend chur ch or mosque services? Never 01/05/2020 Do you belong to [...] on file Legal Sex Female 9:22 AM MONOGRAM MACHINE OPERATOR Gender Identity Not on file Sexual Orientation Not on file COVID-19 Exposure Response Date Recorded In the last month, have you been in contact with someone who was confirmed or suspected to have Coronavirus / COVID-19? Yes 05/18/2021 1:41 PM MONOGRAM MACHINE OPERATOR documented as of this encounter Plan of Treatment Upcoming Encounters Date Type Department Care Team (Late st Contact Info) Description 02/10/2025 11:30 AM CDT Appointment [facility] Echo [address] [place] [phone] Gallito Lance MD [address] [facility] [address] [place] [phone] 02/10/2025 1:00 PM CDT Office Visit [facility] [address] [facility] [address] [place] [phone] Sarita Oro, [facility] [address] [facility] [address] [place] [phone] 04/29/2025 4:00 PM MONOGRAM MACHINE OPERATOR Office Visit [facility] Family Medicine [place] [address] [phone] Sánchez Macario MD [address] [phone] documented as of this encounter Visit Diagnoses Not on filedocumented in this encounter Additional Health Concerns Infection Onset Date Last Indicated Resolved Time COVID-19 05/11/2021 05/11/2021 05/31/2021 2:22 AM MONOGRAM MACHINE OPERATOR R/O Respiratory 06/07/2021 06/07/2021 06/07/2021 1 0:14 PM MONOGRAM MACHINE OPERATOR COVID-19 04/18/2023 04/18/2023 05/08/2023 1:16 AM MONOGRAM MACHINE OPERATOR R/O C. diff 09/04/2023 09/04/2023 09/04/2023 11:4 7 PM CDT R/O COVID-19 09/04/2023 09/04/2023 09/04/2023 6:46 PM CDT R/O COVID-19 11/11/2023 11/11/2023 11/11/2023 1:08 PM CDT Assessment Noted Time PHQ-9 Depression Total Score: 1 12/14/19 11:24 AM CDT documented as of this encounter Care Teams Corporate Driver Relationship Specialty Start Date End Date Sánchez Macario MD [address] [phone] PCP - General Family Practice 04/10/21 documented as of this encounter
--- OUTSIDE RECORDS SUMMARY | 2025-01-22 06:43 | XMS_ITS | Encounter Summary ---
Author Organization [facility] Address [address] [place] [address] Care Team Providers Care Lpn Rn Name Role Phone Sánchez Macario MD Primary Care Provider +1 -[phone] Encounter Details Date Type Department Care Team [...] often do you attend chur ch or roman catholic services? Never 01/05/2020 Do you belong [...] on file Legal Sex Female 9:22 AM PYROMETALLURGICAL ENGINEER Gender Identity Not on file Sexual Orientation Not on file COVID-19 Exposure Response Date Recorded In the last month, have you been in contact with someone who was confirmed or suspected to have Coronavirus / COVID-19? Yes 05/18/2021 1:41 PM PYROMETALLURGICAL ENGINEER documented as of this encounter Plan of Treatment Upcoming Encounters Date Type Department Care Team (Late st Contact Info) Description 02/10/2025 11:30 AM CDT Appointment [facility] Echo [address] [place] [phone] Gallito Lance MD [address] [facility] [address] [place] [phone] 02/10/2025 1:00 PM CDT Office Visit [facility] [address] [facility] [address] [place] [phone] Sarita Oro, [facility] [address] [facility] [address] [place] [phone] 04/29/2025 4:00 PM PYROMETALLURGICAL ENGINEER Office Visit [facility] Family Medicine [place] [address] [phone] Sánchez Macario MD [address] [phone] documented as of this encounter Visit Diagnoses Not on filedocumented in this encounter Additional Health Concerns Infection Onset Date Last Indicated Resolved Time COVID-19 05/11/2021 05/11/2021 05/31/2021 2:22 AM PYROMETALLURGICAL ENGINEER R/O Respiratory 06/07/2021 06/07/2021 06/07/2021 1 0:14 PM PYROMETALLURGICAL ENGINEER COVID-19 04/18/2023 04/18/2023 05/08/2023 1:16 AM PYROMETALLURGICAL ENGINEER R/O C. diff 09/04/2023 09/04/2023 09/04/2023 11:4 7 PM CDT R/O COVID-19 09/04/2023 09/04/2023 09/04/2023 6:46 PM CDT R/O COVID-19 11/11/2023 11/11/2023 11/11/2023 1:08 PM CDT Assessment Noted Time PHQ-9 Depression Total Score: 1 12/14/19 11:24 AM CDT documented as of this encounter Care Teams Lpn Rn Relationship Specialty Start Date End Date Sánchez Macario MD [address] [phone] PCP - General Family Practice 04/10/21 documented as of this encounter
--- OUTSIDE RECORDS SUMMARY | 2025-01-22 06:43 | XMS_ITS | Encounter Summary ---
Author Organization [employer] [facility] Address [address] [place] [address] Care Team Providers Care Cash Reconciliation Specialist Name Role Phone Sánchez Macario MD Primary Care Provider [phone] -[phone] Encounter Details Date Type Department Care Team [...] often do you attend chur ch or jewish services? Never 01/05/2020 Do you belong to any clubs o r organizations such as confucianism groups, unions, fraternal or athletic groups, or [...] on file Legal Sex Female 9:22 AM FIELD ADMINISTRATOR Gender Identity Not on file Sexual Orientation Not on file COVID-19 Exposure Response Date Recorded In the last month, have you been in contact with someone who was confirmed or suspected to have Coronavirus / COVID-19? Yes 05/18/2021 1:41 PM FIELD ADMINISTRATOR documented as of this encounter Plan of Treatment Upcoming Encounters Date Type Department Care Team (Late st Contact Info) Description 02/10/2025 11:30 AM CDT Appointment [facility] Echo [address] [place] [phone] Gallito Lance MD [address] [facility] [address] [place] [phone] 02/10/2025 1:00 PM CDT Office Visit [facility] [address] [facility] [address] [place] [phone] Sarita Oro, [facility] [address] [facility] [address] [place] [phone] 04/29/2025 4:00 PM FIELD ADMINISTRATOR Office Visit [facility] Family Medicine [place] [address] [phone] Sánchez Macario MD [address] [phone] documented as of this encounter Visit Diagnoses Not on filedocumented in this encounter Additional Health Concerns Infection Onset Date Last Indicated Resolved Time COVID-19 05/11/2021 05/11/2021 05/31/2021 2:22 AM FIELD ADMINISTRATOR R/O Respiratory 06/07/2021 06/07/2021 06/07/2021 1 0:14 PM FIELD ADMINISTRATOR COVID-19 04/18/2023 04/18/2023 05/08/2023 1:16 AM FIELD ADMINISTRATOR R/O C. diff 09/04/2023 09/04/2023 09/04/2023 11:4 7 PM CDT R/O COVID-19 09/04/2023 09/04/2023 09/04/2023 6:46 PM CDT R/O COVID-19 11/11/2023 11/11/2023 11/11/2023 1:08 PM CDT Assessment Noted Time PHQ-9 Depression Total Score: 1 12/14/19 11:24 AM CDT documented as of this encounter Care Teams Cash Reconciliation Specialist Relationship Specialty Start Date End Date Sánchez Macario MD [address] [phone] PCP - General Family Practice 04/10/21 documented as of this encounter
--- OUTSIDE RECORDS SUMMARY | 2025-01-22 06:43 | XMS_ITS | Encounter Summary ---
Author Organization [facility] Address [address] [place] [address] Care Team Providers Care Carpenter Wooden Tank Erecting Name Role Phone Sánchez Macario MD Primary Care Provider [phone] [phone] Encounter Details Date Type Department Care Team (Late st Contact Info) Description 01/18/2025 External Device Data [facility] ABSTRACTION [...] any clubs o r organizations such as latter day groups, unions, fraternal or athletic groups, or [...] Master's degree (e.g., MA, MS, Omid, MEd, RELIEF MATE, TYSHAWN) 06/05/2021 Comments No Sex and Gender Information Value Date Recorded Sex Assigned at Not on file Legal Sex Female 9:22 AM APPLICATION SPEC Gender Identity Not on file Sexual Orientation Not on file documented as of this encounter Plan of Treatment Upcoming Encounters Date Type Department Care Team (Late st Contact Info) Description 02/10/2025 11:30 AM CDT Appointment [facility] Echo [address] [place] [address] Gallito Lance MD [address] [facility] [address] [place] [phone] 02/10/2025 1:00 PM CDT Office Visit [facility] [address] [facility] [address] [place] [phone] Sarita Oro, STEEL DIE ENGRAVER [address] [facility] [address] [place] [phone] 04/29/2025 4:00 PM APPLICATION SPEC Office Visit [facility] Medicine [place] [address] [phone] Sánchez Macario MD [address] [phone] documented as of this encounter Visit Diagnoses Not on filedocumented in this encounter Additional Health Concerns Assessment Noted Time PHQ-9 Depression Total Score: 1 07/02/19 25 2:44 PM CDT documented as of this encounter Care Teams Carpenter Wooden Tank Erecting Relationship Specialty Start Date End Date Sánchez Macario MD [address] [phone] PCP - General Family Practice 04/10/21 documented as of this encounter
--- OUTSIDE RECORDS SUMMARY | 2025-01-22 06:43 | XMS_ITS | Encounter Summary ---
Author Organization [employer] Address [address] [place] [address] Care Team Providers Care Telecommunications Manager Name Role Phone Sánchez Macario MD Primary Care Provider +1 [phone] Encounter Details Date Type Department Care Team [...] often do you attend chur ch or sabianism services? Never 01/05/2020 Do you belong to any clubs o r organizations such as temple groups, unions, fraternal or athletic groups, or [...] on file Legal Sex Female 9:22 AM LINE PALLETIZER Gender Identity Not on file Sexual Orientation Not on file COVID-19 Exposure Response Date Recorded In the last month, have you been in contact with someone who was confirmed or suspected to have Coronavirus / COVID-19? Yes 05/18/2021 1:41 PM LINE PALLETIZER documented as of this encounter Plan of Treatment Upcoming Encounters Date Type Department Care Team (Late st Contact Info) Description 02/10/2025 11:30 AM CDT Appointment [facility] Echo [address] [place] [phone] Gallito Lance MD [address] [facility] [address] [place] [phone] 02/10/2025 1:00 PM CDT Office Visit [facility] [address] [facility] [address] [place] [phone] Sarita Oro, [facility] [address] [facility] [address] [place] [phone] 04/29/2025 4:00 PM LINE PALLETIZER Office Visit [facility] Family Medicine [place] [address] [phone] Sánchez Macario MD [address] [phone] documented as of this encounter Visit Diagnoses Not on filedocumented in this encounter Additional Health Concerns Infection Onset Date Last Indicated Resolved Time COVID-19 05/11/2021 05/11/2021 05/31/2021 2:22 AM LINE PALLETIZER R/O Respiratory 06/07/2021 06/07/2021 06/07/2021 1 0:14 PM LINE PALLETIZER COVID-19 04/18/2023 04/18/2023 05/08/2023 1:16 AM LINE PALLETIZER R/O C. diff 09/04/2023 09/04/2023 09/04/2023 11:4 7 PM CDT R/O COVID-19 09/04/2023 09/04/2023 09/04/2023 6:46 PM CDT R/O COVID-19 11/11/2023 11/11/2023 11/11/2023 1:08 PM CDT Assessment Noted Time PHQ-9 Depression Total Score: 1 12/14/19 11:24 AM CDT documented as of this encounter Care Teams Telecommunications Manager Relationship Specialty Start Date End Date Sánchez Macario MD [address] [phone] PCP - General Family Practice 04/10/21 documented as of this encounter
--- OUTSIDE RECORDS SUMMARY | 2025-01-22 06:43 | XMS_ITS | Encounter Summary ---
Author Organization [facility] Address [address] [place] [address] Care Team Providers Care Taxi Driver Name Role Phone Sánchez Macario MD Primary Care Provider +1 -[phone] Encounter Details Date Type Department Care Team (Late st Contact Info) Description 01/17/2025 Abstract [facility] Medicine [place] [address] [facility] [address] [place] [address] Provider, Abstract NO ADDRESS ON FILE Social [...] any clubs o r organizations such as zoroastrian groups, unions, fraternal or athletic groups, or [...] Master's degree (e.g., MA, MS, Omid, MEd, MANAGER FORMS, TYSHAWN) 06/05/2021 Comments No Sex and Gender Information Value Date Recorded Sex Assigned at Not on file Legal Sex Female 9:22 AM CUSTOMER EXPERT Gender Identity Not on file Sexual Orientation Not on file documented as of this encounter Plan of Treatment Upcoming Encounters Date Type Department Care Team (Late st Contact Info) Description 02/10/2025 11:30 AM CDT Appointment [facility] Echo [address] [place] [address] Gallito Lance MD [address] [facility] [address] [place] [phone] 02/10/2025 1:00 PM CDT Office Visit [facility] [address] [facility] [address] [place] [phone] Sarita Oro, MUSIC MINISTRIES DIRECTOR [address] [facility] [address] [place] [phone] 04/29/2025 4:00 PM CUSTOMER EXPERT Office Visit [facility] [address] [phone] Sánchez Macario MD [address] [place] [phone] documented as of this encounter Visit Diagnoses Not on filedocumented in this encounter Additional Health Concerns Assessment Noted Time PHQ-9 Depression Total Score: 1 07/02/19 25 2:44 PM CDT documented as of this encounter Care Teams Taxi Driver Relationship Specialty Start Date End Date Sánchez Macario MD [address] [phone] PCP - General Family Practice 04/10/21 documented as of this encounter
--- OUTSIDE RECORDS SUMMARY | 2025-01-22 06:43 | XMS_ITS | Encounter Summary ---
Author Organization [facility] Address [address] [place] [address] Care Team Providers Care Bronzer Name Role Phone Fabiola Soto MD Primary Care Provider +1 [phone] Encounter Details Date Type Department Care Team (Late st Contact Info) Description 09/07/[address] [facility] General Laboratory Services [place] [address] [place] [address] Social History Tobacco Use Types Packs/Day Years Used Date Smoking Tobacco: Never Smokeless Tobacco: Never Alcohol Use Standard Drinks/Week Comments Yes 4.2 (1 standard drink = 0.6 oz p ure alcohol) month Comments No Sex and Gender Information Value Date Recorded Sex Assigned at Not on file Legal Sex Female 5:07 AM HEAT TREATER HELPER Gender Identity Not on file Sexual Orientation [...] - 10.0 K/uL 09/07/2011 3:07 PM CDT [facility] [place] RBC 4.32 3.93 - 5.22 M/uL 09/07/2011 3:07 PM CDT [facility] [place] HEMOGLOBIN 13.3 11.2 - 15.7 g/dL 09/07/2011 3:07 PM CDT [facility] [place] HEMATOCRIT 40.3 34.1 - 44.9 % 09/07/2011 3:07 PM CDT [facility] [place] MCV 93.3 79.4 - 94.8 fL 09/07/2011 3:07 PM CDT [facility] [place] MCH 30.8 25.6 - 32.2 pg 09/07/2011 3:07 PM CDT [facility] [place] MCHC 33.0 32.2 - 35.5 g/dL 09/07/2011 3:07 PM CDT [facility] [place] RDW 13.8 11.0 - 14.5 % 09/07/2011 3:07 PM CDT [facility] [place] RDW-STDEV 46.0 fL 09/07/2011 3:07 PM CDT [facility] [place] PLATELETS 227 163 - 337 K/uL 09/07/2011 3:07 PM CDT [facility] [place] MPV 12.1 10.0 - 14.8 fL 09/07/2011 3:07 PM CDT [facility] [place] NEUTROPHILS 70 34 - 71 % 09/07/2011 3:07 PM CDT [facility] [place] LYMPHOCYTES 17(L) 19 - 52 % 09/07/2011 3:07 PM CDT [facility] [place] MONOCYTES 9 5 - 13 % 09/07/2011 3:07 PM CDT [facility] [place] EOSINOPHILS 5 1 - 6 % 09/07/2011 3:07 PM CDT [facility] [place] BASOPHILS 1 0 - 1 % 09/07/2011 3:07 PM CDT [facility] [place] NEUTROPHIL ABSOLUTE 4.38 1.56 - 6.13 K/uL 09/07/2011 3:07 PM CDT [facility] [place] LYMPHOCYTE ABSOLUTE 1.05(L) 1.20 - 3.40 K/uL 09/07/2011 3:07 PM CDT [facility] [place] MONOCYTE ABSOLUTE 0.54(H) 0.24 - 0.36 K/uL 09/07/2011 3:07 PM CDT [facility] [place] EOSINOPHIL ABSOLUTE 0.29 0.04 - 0.36 K/uL 09/07/2011 3:07 PM CDT [facility] BASOPHILS ABSOLUTE 0.03 0.01 - 0.08 K/uL 09/07/2011 3:07 PM CDT [facility] [place] Blood specimen (specimen) 09/07/2011 8:10 AM CDT 09/07/2011 9:21 AM CDT Phillyrupesh Sotomayorray ENVIRONMENTAL MANAGER HEMATOLOGY ORDERA BLES Final Result [facility] CLIA # [id number] [address] [place] [address] * (ABNORMAL) COMPREHENSIVE METABOLIC PANEL (09/07/2011 8:10 AM CDT) SODIUM 141 136 - 145 mmol/L 09/07/2011 5:18 PM CDT [facility] POTASSIUM 3.8 3.5 - 5.1 mmol/L 09/07/2011 5:18 PM CDT [facility] CHLORIDE 106 98 - 107 mmol/L 09/07/2011 5:18 PM CDT [facility] CO2 25 21 - 32 mmol/L 09/07/2011 5:18 PM CDT [facility] CALCIUM 9.1 8.5 - 10.1 mg/dL 09/07/2011 5:18 PM CDT [facility] [place] BUN 17 7 - 18 mg/dL 09/07/2011 5:18 PM CDT [facility] [place] [facility] CREATININE 0.80 0.60 - 1.30 mg/dL 09/07/2011 5:18 PM CDT [facility] [place] [facility] GLUCOSE 74 74 - 106 mg/dL 09/07/2011 5:18 PM CDT [facility] LAB[facility]ORY [facility] TOTAL PROTEIN 6.6 6.4 - 8.2 g/dL 09/07/2011 5:18 PM CDT [facility] ALBUMIN 3.3(L) 3.4 - 5.0 g/dL 09/07/2011 5:18 PM CDT [facility] BILIRUBIN TOTAL 0.3 0.2 - 1.0 mg/dL 09/07/2011 5:18 PM CDT [facility] ALKALINE PHOSPHATASE 110 50 - 136 U/L 09/07/2011 5:18 PM T [facility] AST 15 15 - 37 U/L 09/07/2011 5:18 PM CDT [facility] ALT 32 30 - 65 U/L 09/07/2011 5:18 PM CDT [facility] GFR 71 >=60 mL/min/1.7 3 sq meter 09/07/2011 5:18 PM T [facility] GFR, 86 >=60 mL/min/1.7 3 sq meter 09/07/2011 5:18 PM T [facility] Blood specimen (specimen) 09/07/2011 8:10 AM CDT 09/07/2011 9:21 AM CDT Narrative [facility] - 09/07/2011 5:18 PM CDT [...] Darling APRN CHEMISTRY ORDERAB LES Final Result [facility] CLIA # [id number] [address] [facility] [address] [place] [address] * (ABNORMAL) LIPID PANEL (09/07/2011 8:10 AM CDT) [facility] Signature CHOLESTEROL 204(H) 130 - 200 mg/dL 09/07/2011 5:18 PM CDT [facility] LABORATORY [facility] TRIGLYCERIDE 130 30 - 200 mg/dL 09/07/2011 5:18 PM CDT [facility] HDL 44 35 - 80 mg/dL 09/07/2011 5:18 PM CDT [facility] LDL CALCULATED 134(H) 0 - 100 mg/dL 09/07/2011 5:18 PM CDT [facility] Blood specimen (specimen) 09/07/2011 8:10 AM CDT 09/07/2011 9:21 AM CDT Narrative [facility] LABORATORY [facility] - 09/07/2011 5:18 PM CDT TOTAL CHOLESTEROL [...] ORDERAB LES Final Result Performing Organization Address City/[facility]/ZIP Co de Phone Number [facility] CLIA # [id number] [address] [place] [address] * FERRITIN (09/07/2011 8:10 AM CDT) FERRITIN 81.0 8.0 - 252.0 ng/mL 09/07/2011 6:41 PM CDT [facility] STATS Group [facility] Blood specimen (specimen) 09/07/2011 8:10 AM CDT 09/07/2011 9:21 AM CDT [facility] ENVIRONMENTAL MANAGER CHEMISTRY ORDERAB LES Final Result Performing Organization Address City/[facility]/ZIP Co de Phone Number [facility] CLIA # [id number] [address] [place] [address] * IRON LEVEL (09/07/2011 8:10 AM CDT) IRON 58 50 - 170 ug/dL 09/07/2011 6:41 PM CDT [facility] Blood specimen (specimen) 09/07/2011 8:10 AM CDT 09/07/2011 9:21 AM CDT Philly Darling ENVIRONMENTAL MANAGER CHEMISTRY ORDERAB LES Final Result [facility] LAB[facility]AT[facility] CLIA # [id number] [address] [address] documented in this encounter Visit Diagnoses Not on filedocumented in this encounter Additional Health Concerns Infection Onset Date Last Indicated Resolved Time R/O C. diff 10/16/2020 10/16/2020 10/16/2020 11:1 0 AM CDT documented as of this encounter Care Teams Bronzer Relationship Specialty Start Date End Date Fabiola Soto MD [address] [phone] PCP - General Family Practice 05/27/13 documented as of this encounter
--- OUTSIDE RECORDS SUMMARY | 2025-01-22 06:43 | XMS_ITS | Encounter Summary ---
Author Organization [facility] Address [address] [place] [address] Care Team Providers Care Icing Machine Operator Name Role Phone Sánchez Macario MD Primary Care Provider [phone] [phone] Encounter Details Date Type Department Care Team [...] often do you attend chur ch or sabianist services? Never 01/05/2020 Do you belong to [...] on file Legal Sex Female 9:22 AM CONCESSION MANAGER Gender Identity Not on file Sexual Orientation Not on file COVID-19 Exposure Response Date Recorded In the last month, have you been in contact with someone who was confirmed or suspected to have Coronavirus / COVID-19? Yes 05/18/2021 1:41 PM CONCESSION MANAGER documented as of this encounter Plan of Treatment Upcoming Encounters Date Type Department Care Team (Late st Contact Info) Description 02/10/2025 11:30 AM CDT Appointment [facility] Echo [address] [place] [phone] Gallito Lance MD [address] [facility] [address] [place] [phone] 02/10/2025 1:00 PM CDT Office Visit [facility] [address] [facility] [address] [place] [phone] Sarita Oro, [facility] [address] [facility] [address] [place] [phone] 04/29/2025 4:00 PM CONCESSION MANAGER Office Visit [facility] [place] [address] [address] Sánchez Macario MD [address] [phone] documented as of this encounter Visit Diagnoses Not on filedocumented in this encounter Additional Health Concerns Infection Onset Date Last Indicated Resolved Time COVID-19 05/11/2021 05/11/2021 05/31/2021 2:22 AM CONCESSION MANAGER R/O Respiratory 06/07/2021 06/07/2021 06/07/2021 1 0:14 PM CONCESSION MANAGER COVID-19 04/18/2023 04/18/2023 05/08/2023 1:16 AM CONCESSION MANAGER R/O C. diff 09/04/2023 09/04/2023 09/04/2023 11:4 7 PM CDT R/O COVID-19 09/04/2023 09/04/2023 09/04/2023 6:46 PM CDT R/O COVID-19 11/11/2023 11/11/2023 11/11/2023 1:08 PM CDT Assessment Noted Time PHQ-9 Depression Total Score: 1 12/14/19 11:24 AM CDT documented as of this encounter Care Teams Icing Machine Operator Relationship Specialty Start Date End Date Sánchez Macario MD [address] [phone] PCP - General Family Practice 04/10/21 documented as of this encounter
--- OUTSIDE RECORDS SUMMARY | 2025-01-22 06:43 | XMS_ITS | Encounter Summary ---
Author Organization [facility] Address [address] [place] [address] Care Team Providers Care Head Gauge Unit Operator Name Role Phone Sánchez Macario MD Primary Care Provider [phone] [phone] Encounter Details Date Type Department Care Team [...] often do you attend chur ch or holiness services? Never 01/05/2020 Do you belong to any clubs o r organizations such as anabaptist groups, unions, fraternal or athletic groups, or [...] on file Legal Sex Female 9:22 AM BARROW WORKER HELPER Gender Identity Not on file Sexual Orientation Not on file COVID-19 Exposure Response Date Recorded In the last month, have you been in contact with someone who was confirmed or suspected to have Coronavirus / COVID-19? Yes 05/18/2021 1:41 PM BARROW WORKER HELPER documented as of this encounter Plan of Treatment Upcoming Encounters Date Type Department Care Team (Late st Contact Info) Description 02/10/2025 11:30 AM CDT Appointment [facility] Echo [address] [place] [phone] Gallito Lance MD [address] [facility] [address] [place] [phone] 02/10/2025 1:00 PM CDT Office Visit [facility] [address] [facility] [address] [place] [phone] Sarita Oro, [facility] [address] [facility] [address] [place] [phone] 04/29/2025 4:00 PM BARROW WORKER HELPER Office Visit [facility] [place] [address] [phone] Sánchez Macario MD [address] [phone] documented as of this encounter Visit Diagnoses Not on filedocumented in this encounter Additional Health Concerns Infection Onset Date Last Indicated Resolved Time COVID-19 05/11/2021 05/11/2021 05/31/2021 2:22 AM BARROW WORKER HELPER R/O Respiratory 06/07/2021 06/07/2021 06/07/2021 1 0:14 PM BARROW WORKER HELPER COVID-19 04/18/2023 04/18/2023 05/08/2023 1:16 AM BARROW WORKER HELPER R/O C. diff 09/04/2023 09/04/2023 09/04/2023 11:4 7 PM CDT R/O COVID-19 09/04/2023 09/04/2023 09/04/2023 6:46 PM CDT R/O COVID-19 11/11/2023 11/11/2023 11/11/2023 1:08 PM CDT Assessment Noted Time PHQ-9 Depression Total Score: 1 12/14/19 11:24 AM CDT documented as of this encounter Care Teams Head Gauge Unit Operator Relationship Specialty Start Date End Date Sánchez Macario MD [address] [phone] PCP - General Family Practice 04/10/21 documented as of this encounter
--- OUTSIDE RECORDS SUMMARY | 2025-01-22 06:43 | XMS_ITS | Encounter Summary ---
Author Organization [facility] Address [address] [place] [address] Care Team Providers Care Ground Instructor Advanced Name Role Phone Sánchez Macario MD Primary Care Provider [phone] [phone] Encounter Details Date Type Department Care Team [...] often do you attend chur ch or latter day services? Never 01/05/2020 Do you belong to any clubs o r organizations such as rastafarian groups, unions, fraternal or athletic groups, or [...] on file Legal Sex Female 9:22 AM DINING ROOM ATTENDANT Gender Identity Not on file Sexual Orientation Not on file COVID-19 Exposure Response Date Recorded In the last month, have you been in contact with someone who was confirmed or suspected to have Coronavirus / COVID-19? Yes 05/18/2021 1:41 PM DINING ROOM ATTENDANT documented as of this encounter Plan of Treatment Upcoming Encounters Date Type Department Care Team (Late st Contact Info) Description 02/10/2025 11:30 AM CDT Appointment [facility] Echo [address] [place] [phone] Gallito Lance MD [address] [facility] [address] [place] [phone] 02/10/2025 1:00 PM CDT Office Visit [facility] [address] [facility] [address] [place] [phone] Sarita Oro, [facility] [address] [facility] [address] [place] [phone] 04/29/2025 4:00 PM DINING ROOM ATTENDANT Office Visit [facility] Family Medicine [place] [address] [phone] Sánchez Macario MD [address] [phone] documented as of this encounter Visit Diagnoses Not on filedocumented in this encounter Additional Health Concerns Infection Onset Date Last Indicated Resolved Time COVID-19 05/11/2021 05/11/2021 05/31/2021 2:22 AM DINING ROOM ATTENDANT R/O Respiratory 06/07/2021 06/07/2021 06/07/2021 1 0:14 PM DINING ROOM ATTENDANT COVID-19 04/18/2023 04/18/2023 05/08/2023 1:16 AM DINING ROOM ATTENDANT R/O C. diff 09/04/2023 09/04/2023 09/04/2023 11:4 7 PM CDT R/O COVID-19 09/04/2023 09/04/2023 09/04/2023 6:46 PM CDT R/O COVID-19 11/11/2023 11/11/2023 11/11/2023 1:08 PM CDT Assessment Noted Time PHQ-9 Depression Total Score: 1 12/14/19 11:24 AM CDT documented as of this encounter Care Teams Ground Instructor Advanced Relationship Specialty Start Date End Date Sánchez Macario MD [address] [phone] PCP - General Family Practice 04/10/21 documented as of this encounter
--- OUTSIDE RECORDS SUMMARY | 2025-01-22 06:43 | XMS_ITS | Encounter Summary ---
Author Organization [facility] Address [address] [place] [address] Care Team Providers Care Defence Intelligence Analyst Name Role Phone Sánchez Macario MD Primary Care Provider [phone] [phone] Encounter Details Date Type Department Care Team [...] often do you attend chur ch or gnosticist services? Never 01/05/2020 Do you belong to any clubs o r organizations such as voodoo groups, unions, fraternal or athletic groups, or [...] on file Legal Sex Female 9:22 AM LIGHT BULB REPLACER Gender Identity Not on file Sexual Orientation Not on file COVID-19 Exposure Response Date Recorded In the last month, have you been in contact with someone who was confirmed or suspected to have Coronavirus / COVID-19? Yes 05/18/2021 1:41 PM LIGHT BULB REPLACER documented as of this encounter Plan of Treatment Upcoming Encounters Date Type Department Care Team (Late st Contact Info) Description 02/10/2025 11:30 AM CDT Appointment [facility] Echo [address] [place] [phone] Gallito Lance MD [address] [facility] [address] [place] [phone] 02/10/2025 1:00 PM CDT Office Visit [facility] [address] [facility] [address] [place] [phone] Sarita Oro, [facility] [address] [facility] [address] [place] [phone] 04/29/2025 4:00 PM LIGHT BULB REPLACER Office Visit [facility] [place] [address] [phone] Sánchez Macario MD [address] [phone] documented as of this encounter Visit Diagnoses Not on filedocumented in this encounter Additional Health Concerns Infection Onset Date Last Indicated Resolved Time COVID-19 05/11/2021 05/11/2021 05/31/2021 2:22 AM LIGHT BULB REPLACER R/O Respiratory 06/07/2021 06/07/2021 06/07/2021 1 0:14 PM LIGHT BULB REPLACER COVID-19 04/18/2023 04/18/2023 05/08/2023 1:16 AM LIGHT BULB REPLACER R/O C. diff 09/04/2023 09/04/2023 09/04/2023 11:4 7 PM CDT R/O COVID-19 09/04/2023 09/04/2023 09/04/2023 6:46 PM CDT R/O COVID-19 11/11/2023 11/11/2023 11/11/2023 1:08 PM CDT Assessment Noted Time PHQ-9 Depression Total Score: 1 12/14/19 11:24 AM CDT documented as of this encounter Care Teams Defence Intelligence Analyst Relationship Specialty Start Date End Date Sánchez Macario MD [address] [phone] PCP - General Family Practice 04/10/21 documented as of this encounter
--- OUTSIDE RECORDS SUMMARY | 2025-01-22 06:43 | XMS_ITS | Encounter Summary ---
Author Organization [facility] Address [address] [place] [address] Care Team Providers Care Aggregate Conveyor Operator Name Role Phone Sánchez Macario MD Primary Care Provider [phone] [phone] Encounter Details Date Type Department Care Team [...] often do you attend chur ch or denominational services? Never 01/05/2020 Do you belong to any clubs o r organizations such as gnosticism groups, unions, fraternal or athletic groups, or [...] on file Legal Sex Female 9:22 AM SOFTWOOD FALLER Gender Identity Not on file Sexual Orientation Not on file COVID-19 Exposure Response Date Recorded In the last month, have you been in contact with someone who was confirmed or suspected to have Coronavirus / COVID-19? Yes 05/18/2021 1:41 PM SOFTWOOD FALLER documented as of this encounter Plan of Treatment Upcoming Encounters Date Type Department Care Team (Late st Contact Info) Description 02/10/2025 11:30 AM CDT Appointment [facility] Echo [address] [place] [phone] Gallito Lance MD [address] [facility] [address] [place] [phone] 02/10/2025 1:00 PM CDT Office Visit [facility] [address] [facility] [address] [place] [phone] Sarita Oro, [facility] [address] [facility] [address] [place] [phone] 04/29/2025 4:00 PM SOFTWOOD FALLER Office Visit [facility] [place] [address] [phone] Sánchez Macario MD [address] [phone] documented as of this encounter Visit Diagnoses Not on filedocumented in this encounter Additional Health Concerns Infection Onset Date Last Indicated Resolved Time COVID-19 05/11/2021 05/11/2021 05/31/2021 2:22 AM SOFTWOOD FALLER R/O Respiratory 06/07/2021 06/07/2021 06/07/2021 1 0:14 PM SOFTWOOD FALLER COVID-19 04/18/2023 04/18/2023 05/08/2023 1:16 AM SOFTWOOD FALLER R/O C. diff 09/04/2023 09/04/2023 09/04/2023 11:4 7 PM CDT R/O COVID-19 09/04/2023 09/04/2023 09/04/2023 6:46 PM CDT R/O COVID-19 11/11/2023 11/11/2023 11/11/2023 1:08 PM CDT Assessment Noted Time PHQ-9 Depression Total Score: 1 12/14/19 11:24 AM CDT documented as of this encounter Care Teams Aggregate Conveyor Operator Relationship Specialty Start Date End Date Sánchez Macario MD [address] [phone] PCP - General Family Practice 04/10/21 documented as of this encounter
--- OUTSIDE RECORDS SUMMARY | 2025-01-22 06:44 | XMS_ITS | Encounter Summary ---
Author Organization [facility] Address [address] [place] [address] Care Team Providers Care Rent And Miscellaneous Remittance Clerk Name Role Phone Sánchez Macario MD Primary Care Provider [phone] [phone] Encounter Details Date Type Department Care Team (Late st Contact Info) Description 11/01/2024 Abstract [facility] [address] [facility] [place] [phone] Provider, Abstract NO ADDRESS ON FILE Social [...] often do you attend chur ch or druze services? Never 01/05/2020 Do you belong to [...] Master's degree (e.g., MA, MS, Omid, MEd, FUR DRUMMER, TYSHAWN) 06/05/2021 Comments No Sex and Gender Information Value Date Recorded Sex Assigned at Not on file Legal Sex Female 9:22 AM CONTROL AND RECOVERY COMBAT RESCUE Gender Identity Not on file Sexual Orientation Not on file documented as of this encounter Plan of Treatment Upcoming Encounters Date Type Department Care Team (Late st Contact Info) Description 02/10/2025 11:30 AM CDT Appointment [facility] Echo [address] [place] [address] Gallito Lance MD [address] [place] [phone] 02/10/2025 1:00 PM CDT Office Visit [facility] [address] [facility] [address] [place] [phone] Sarita Oro, LEASING COORDINATOR [address] [facility] [address] [place] [phone] 04/29/2025 4:00 PM CONTROL AND RECOVERY COMBAT RESCUE Office Visit [facility] [address] [phone] Sánchez Macario MD [address] [place] [phone] documented as of this encounter Visit Diagnoses Not on filedocumented in this encounter Additional Health Concerns Assessment Noted Time PHQ-9 Depression Total Score: 1 07/02/19 25 2:44 PM CDT documented as of this encounter Care Teams Rent And Miscellaneous Remittance Clerk Relationship Specialty Start Date End Date Sánchez Macario MD [address] [phone] PCP - General Family Practice 04/10/21 documented as of this encounter
--- OUTSIDE RECORDS SUMMARY | 2025-01-22 06:44 | XMS_ITS | Encounter Summary ---
Author Organization [facility] Address [address] [place] [address] Care Team Providers Care Master Scheduler Name Role Phone Fabiola Soto MD Primary Care Provider [phone] Encounter Details Date Type Department Care Team (Late st Contact Info) Description 08/29/2012 Ancillary Orders [facility] General Laboratory Services [place] [address] [place] [address] Social History Tobacco Use Types Packs/Day Years Used Date Smoking Tobacco: Never Smokeless Tobacco: Never Alcohol Use Standard Drinks/Week Comments No 0 (1 standard drink = 0.6 oz pur e alcohol) Comments No Sex and Gender Information Value Date Recorded Sex Assigned at Not on file Legal Sex Female 5:07 AM [employer] Gender Identity Not on file Sexual [...] - 1.30 mg/dL 08/29/2012 3:19 PM CDT [facility] GFR 62 >=60 mL/min/1.7 3 sq meter 08/29/2012 3:19 PM CDT [facility] GFR, 75 >=60 mL/min/1.7 3 sq meter 08/29/2012 3:19 PM CDT [facility] Blood specimen (specimen) 08/29/2012 9:00 AM CDT 08/29/2012 1:48 PM CDT Narrative [facility] - 08/29/2012 3:19 PM CDT eGFR [...] ORDERAB LES Final Result Performing Organization Address City/[facility]/ZIP Co de Phone Number [facility] CLIA # [id number] [address] [place] [address] * (ABNORMAL) ALT (08/29/2012 9:00 AM CDT) ALT 23(L) 30 - 65 U/L 08/29/2012 3:19 PM CDT [facility] Blood specimen (specimen) 08/29/2012 9:00 AM CDT 08/29/2012 1:48 PM CDT [facility] MONITORING COORDINATOR CHEMISTRY ORDERAB LES Final Result [facility] CLIA # [id number] [address] [address] * (ABNORMAL) CBC WITHOUT DIFFERENTIAL (08/29/2012 9:00 AM CDT) WBC 5.6 4.0 - 10.0 K/uL 08/29/2012 8:45 PM CDT [facility] RBC 4.45 3.93 - 5.22 M/uL 08/29/2012 8:45 PM CDT [facility] HEMOGLOBIN 13.7 11.2 - 15.7 g/dL 08/29/2012 8:45 PM CDT [facility] HEMATOCRIT 42.4 34.1 - 44.9 % 08/29/2012 8:45 PM CDT [facility] MCV 95.3(H) 79.4 - 94.8 fL 08/29/2012 8:45 PM CDT [facility] MCH 30.8 25.6 - 32.2 pg 08/29/2012 8:45 PM CDT [facility] MCHC 32.3 32.2 - 35.5 g/dL 08/29/2012 8:45 PM CDT [facility] PLATELETS 255 163 - 337 K/uL 08/29/2012 8:45 PM CDT [facility] MPV 11.5 10.0 - 14.8 fL 08/29/2012 8:45 PM CDT [facility] RDW 14.1 11.0 - 14.5 % 08/29/2012 8:45 PM CDT [facility] RDW-STDEV 47.2 37.0 - 54.0 fL 08/29/2012 8:45 PM CDT [facility] Blood specimen (specimen) 08/29/2012 9:00 AM CDT 08/29/2012 1:48 PM CDT us Philly Darling MONITORING COORDINATOR HEMATOLOGY ORDERA BLES Final Result [facility] CLIA # [id number] [address] [place] [address] * (ABNORMAL) TSH (08/29/2012 9:00 AM CDT) TSH 5.94(H) 0.30 - 4.80 uIU/mL 08/29/2012 3:19 PM CDT [facility] Blood specimen (specimen) 08/29/2012 9:00 AM CDT 08/29/2012 1:48 PM [facility]T [facility] Final Result Performing Organization Address City/[facility]/ZIP Co de Phone Number [facility] CLIA # [id number] [address] [place] [address] * HEMOGLOBIN A1C (08/29/2012 9:00 AM CDT) HEMOGLOBIN A1C 5.8 4.5 - 6.2 % 08/31/2012 9:51 AM CDT [facility] EST. AVG GLUCOSE, A1C 120 mg/dL 08/31/2012 9:51 AM CDT [facility] Blood specimen (specimen) 08/29/2012 9:00 AM CDT 08/29/2012 1:48 PM CDT [facility] LES Final Result [facility] CLIA # [id number] [address] [place] [address] * (ABNORMAL) LIPID PANEL (08/29/2012 9:00 AM CDT) CHOLESTEROL 218(H) 130 - 200 mg/dL 08/29/2012 3:19 PM CDT [facility] TRIGLYCERIDE 101 30 - 200 mg/dL 08/29/2012 3:19 PM CDT [facility] HDL 50 35 - 80 mg/dL 08/29/2012 3:19 PM CDT [facility] LDL CALCULATED 148(H) 0 - 100 mg/dL 08/29/2012 3:19 PM CDT [facility] Blood specimen (specimen) 08/29/2012 9:00 AM CDT 08/29/2012 1:48 PM CDT Narrative [facility] - 08/29/2012 3:19 PM CDT TOTAL CHOLESTEROL mg/dL Desirable <200 Borderline high 200-239 High >=240 TRIGLYCERIDES mg/dL Normal <150 Borderline high 150-199 High 200-499 Very high >=500 HDL CHOLESTEROL mg/dL Low <40 Normal 40-60 Desirable >60 LDL CHOLESTEROL mg/dL Optimal <100 Low risk 100-129 Borderline high 130-159 High 160-189 Very high >=190 Based on AHA/NCEP Guidelines Philly Darling MONITORING COORDINATOR CHEMISTRY ORDERAB LES Final Result [facility] CLIA # [id number] [address] [address] documented in this encounter Visit Diagnoses Not on filedocumented in this encounter Additional Health Concerns Infection Onset Date Last Indicated Resolved Time R/O C. diff 10/16/2020 10/16/2020 10/16/2020 11:1 0 AM CDT documented as of this encounter Care Teams Master Scheduler Relationship Specialty Start Date End Date Fabiola Soto MD [address] [address] PCP - General Family Practice 05/27/13 documented as of this encounter
--- OUTSIDE RECORDS SUMMARY | 2025-01-22 06:44 | XMS_ITS | Data Portability ---
Author Organization Zeenat Sahu [facility] Address [address] [place] [id number] Assessment No assessment recorded. Plan of Treatment [...] By Organization Details Last Modified Time 09/17/2023 [id number] Hospital records reviewed. Admitted with septic shock and later developed adrenal insufficiency known aortic stenosis with plan for evaluation for TAVR Labs weekly x 4 weeks. [email or web address] Not available 09/22/2023 12:40:57 09/24/2023 [id number] stop several supplements with nausea. d/c lasix d/t low bp. 1 L NS now. [email or web address] Not available 09/25/2023 10:29:18 11/19/2023 [id number] records reviewed . Admitted for respiratory failure with COPD exacerbation, found to have parainfluenza infection. Tx with IV abx and steroids. Ascending aortic dilation 4.1cm in July. Blood pressure low, staff to monitor. Still on prednisone. Will order budesonide nebs bid, duonebs TID. Labs weekly x 4 weeks. f/u 1 week. Not available 11/20/2023 11:06:45 11/26/2023 [id number] doing well, breathing tx helped with cough. mood good. Not available 11/27/2023 11:59:45 Reason for Referral None Reported. Problems Name Problem SNOMED Code Status Onset Date Resolution Date Notes Provider Name and Address Organization Details Recorded Time Hospital inpatient stay within past 30 days 5253308923474 [facility] 13:50:57 Iatrogenic adrenal insufficie ncy 622457811 [facility] 20[facility] 13:52:10 Septic shock 26131166 Active [address] [facility] 4 13:52:11 Interstiti al lung disease 679706716 Active [address] [facility] 4 13:52:13 Infiltrati ng duct carcinoma of breast 760356669 Active [address] [facility] 4 13:52:28 Severe aortic valve stenosis 471712008 Active [address] [facility] 4 13:52:37 Essential hypertensi on 18182278 Active [address] [facility] 4 11:03:39 Pulmonary embolism 09711444 Active [address] [facility] 4 11:03:49 Chronic kidney disease stage 3 697608787 Active [address] [facility] 4 11:04:01 Depressive disorder 70261788 [facility] 2023 [facility] 11:04:08 Problem Notes None recorded. [...] Updated DateTime 4 167.64 cm 41 kg/m2 444409. 46 g 85 /min 18 /min 98.2 [degF] 94 % 94 % 113/67 mm[Hg] [facility] 4 13:49:06 Date Recorded Body height Body mass index (BMI) Body weight Heart rate Respiratory rate Body temperature Oxygen saturation Oxygen saturation in Arterial blood by Pulse oximetry Systolic And Diastolic Provider Name and Address Organization Details Last Updated DateTime 4 167.64 cm 41 kg/m2 509975. 46 g 84 /min 16 /min 97 [degF] 94 % 94 % 108/65 mm[Hg] [facility] 4 09:40:59 Date Recorded Body height Body mass index (BMI) Body weight Heart rate Respiratory rate Body temperature Oxygen saturation Oxygen saturation in Arterial blood by Pulse oximetry Systolic And Diastolic Provider Name and Address Organization Details Last Updated DateTime 4 167.64 cm 35 kg/m2 52822.5 4 g 91 /min 18 /min 98.2 [degF] 94 % 94 % 111/60 mm[Hg] CATALINA BAUER [facility] 11:57:35 Social History None recorded. Functional Status None recorded. Mental Status None recorded. Family History Nothing Reported. Medical History No medical history recorded. Gynecological HistoryNo gynecological history recorded. Obstetrics History GPAL:G 0 P 0 0 0 0 Past Encounters Encounter ID Performer Location Encounter Start Date Encounter Closed Date Diagnosis/Indication Diagnosis SNOMED-CT Code Diagnosis ICD10 Code Diagnosis IMO Codes Diagnosis Note [id number] Piotr Palmer DO [facility] ([facility]) [address] [place] [address] 09/17/2023 11:29:53 09/22/2023 14:32:29 Hospital inpatient stay within past 30 days [id number] 106 Z76.89 Septic shock 43025234 R6 5.21 Iatrogenic adrenal insufficiency 424959085 E27.3 Interstiti al lung disease 780328107 J84.9 Infiltrati ng duct carcinoma of breast 289531653 C50.919 Severe aor tic valve stenosis 138692920 I35.0 [id number] Piotr Palmer [facility] ([facility]) [address] [place] [address] 09/24/2023 08:12:39 09/30/2023 12:02:33 Interstitial lung disease 777141507 J84.9 Iatrogenic adrenal insufficiency 715908667 E27.3 Infiltrati ng duct carcinoma of breast 774255573 C50.919 Nausea 549212692 R11.0 Dehydration 22325611 E86 .0 [id number] Piotr Palmer [facility] ([facility]) [address] [place] [address] 11/19/2023 16:38:37 11/24/2023 14:57:55 Hospital inpatient stay within past 30 days 9537549661 106 Z76.89 Severe aor tic valve stenosis 146776931 I35.0 Essential hypertension 98208675 I10 Pulmonary embolism 91223 003 I26.99 Chronic ki dney disease stage 3 058188376 N18.31 Depressive disorder 3548 9007 F32.A [id number] Piotr Palmer [facility] ([facility]) [address] [place] [address] 11/26/2023 11:18:04 11/27/2023 16:41:14 Interstitial lung disease 969699719 J84.9 Chronic ki dney disease stage 3 256717809 N18.31 Depressive disorder 3548 9007 F32.A Essential hypertension 11013400 I10 Health Concerns Section Related Observation LastModified by Organization Detai ls LastModified Time None Recorded Concern Status LastModified by Organization Details LastModified Time None Recorded Advance Directives Directive None Recorded Payers Insurance Date Sequence Insurance Name Policy Number Policy Mallory Covered Member ID Mallory Member ID Guarantor Name 09/25/2023 1 [place] Janet Calvillo [id number] Janet Calvillo 11/25/2023 [place] - [facility] (MEDICARE) Janet Calvillo [id number] Janet Calvillo 09/25/2023 1 [place] - [place]) [id number] Janet Calvillo [id number] Janet Calvillo 12/02/2023 1 [place] (MEDICARE REPLACEMENT HMO) [id number] Janet Calvillo [id number] Janet Calvillo 09/17/2023 1 [place] - [place]) Janet Calvillo [id number] Janet Calvillo Notes Date Note Type Note Provider Name and Address Organization Details Recorded Time 09/17/2023 text/html Care Management - GeneralReported by PatientHPIFor prognosis, patient reportsexpected outcome: stabilizeandprognosis: moderate. For context, patient reportsnot current smoker. For lifestyle changes, patient reportsexercises regularly. For medication therapy, patient reportscompliant with follow-up visits,compliance with oral medication is good,understands effect of concurrent medications,understand s potential side effects, andunderstands missed doses.ROS as noted in the HPI Piotr Palmer DO [address] [place] [address], [phone], [facility] 09/22/2023 12:41:20 09/24/2023 text/html Care Management - GeneralReported by [facility], patient reportsexpected outcome: stabilizeandprognosis: moderate. For context, patient reportsnot current smoker. For lifestyle changes, patient reportsexercises regularly. For medication therapy, patient reportscompliant with follow-up visits,compliance with oral medication is good,understands effect of concurrent medications,understand s potential side effects, andunderstands missed doses.ROS as noted in the [facility] Piotr Palmer[address], [address], [facility] 09/29/2023 10:18:02 11/19/2023 text/html Care Management - GeneralReported by [facility], patient reportsexpected outcome: stabilizeandprognosis: moderate. For context, patient reportsnot current smoker. For lifestyle changes, patient reportsexercises regularly. For medication therapy, patient reportscompliant with follow-up visits,compliance with oral medication is good,understands effect of concurrent medications,understand s potential side effects, andunderstands missed doses.ROS as noted in the [facility] Piotr Delong[address], [address], [facility] 11/24/2023 08:50:43 11/26/2023 text/html Care Management - GeneralReported by [facility], patient reportsexpected outcome: stabilizeandprognosis: moderate. For context, patient reportsnot current smoker. For lifestyle changes, patient reportsexercises regularly. For medication therapy, patient reportscompliant with follow-up visits,compliance with oral medication is good,understands effect of concurrent medications,understand s potential side effects, andunderstands missed doses.ROS as noted in the [facility] Piotr Del[address], [address], [facility] 12/01/2023 12:00:19 OBGyn Episode No OBEpisode recorded.
--- NOTE | 2025-01-22 06:49 | W.ED.NAVMDI ---
HPI - Nausea/Vomiting/Diarrhea General: Chief complaint: Nausea/Vomiting/Diarrhea Stated complaint: diarrhea Time Seen by Provider: 01/22/25 06:38 Source: patient Mode of arrival: ambulatory Limitations: no limitations History of Present Illness: 84-year-old female with a history of breast cancer states that she had vomiting along with diarrhea that started early in the morning. States she has had 3 episodes of diarrhea 1 episode of vomiting. She denies any pain denies any fever states she has some mild fatigue denies any blood in her stool or vomit. Associated nausea: Yes Associated symtoms: Reports nausea; Denies chest pain or dysuria Related Data Home Medications ?Medication ?Instructions ?Recorded ?Confirmed potassium chloride 10 mEq 10 meq PO DAILY 12/28/19 01/19/25 capsule,extended release tolterodine 4 mg capsule,extended 4 mg PO DAILY 12/28/19 01/19/25 release 24 hr denosumab 60 mg/mL subcutaneous 60 mg SUBCUT .[id number] 06/26/20 01/19/25 syringe (Prolia) cyanocobalamin (vitamin B-12) 2,500 mcg PO DAILY 07/19/21 01/19/25 2,500 mcg tablet fluoxetine 40 mg capsule 40 mg PO DAILY 12/08/23 01/19/25 lorazepam 0.5 mg tablet 0.5 mg PO DAILY 12/08/23 01/19/25 ropinirole 0.25 mg tablet 0.25 mg PO DAILY 12/15/23 01/19/25 tizanidine 2 mg tablet 2 mg PO DAILY PRN Spasms 03/15/24 01/19/25 acetaminophen 325 mg tablet 325 mg PO QID PRN Pain 04/22/24 01/19/25 jqhyznoludhu-jpgydgrm-[id number]-omega 1 cap PO DAILY 01/04/25 01/19/25 3,6,9 no.3 400 mcg capsule Previous Rx's ?Medication ?Instructions ?Recorded custom inserts #1 ea 08/06/23 apixaban 5 mg tablet (Eliquis) 5 mg PO BID #60 tabs 09/11/23 meclizine 25 mg tablet 25 mg PO QID PRN dizziness #20 tabs 10/15/24 levothyroxine 150 mcg capsule 150 mcg PO DAILY #30 caps 10/20/24 ondansetron 4 mg disintegrating 4 mg PO Q6H PRN nausea and 01/22/25 tablet vomiting #14 tabs Allergies Allergy/AdvReac Type Severity Reaction Status Date / Time tetanus toxoid, adsorbed Allergy Severe unknown Verified 01/19/25 09:48 ciprofloxacin (From Cipro) Allergy Unknown ADR-Vomitin Verified 01/19/25 09:48 g erythromycin base Allergy Unknown ADR-Vomitin Verified 01/19/25 09:48 g gabapentin (From Neurontin) Allergy Unknown unknown Verified 01/19/25 09:48 Influenza Virus Vaccines Allergy Unknown unknown Verified 01/19/25 09:48 tramadol (From Ultram) Allergy Unknown unknown Verified 01/19/25 09:48 aspirin Allergy stomach Verified 01/19/25 09:48 pain, unbearable egg Allergy unknown Verified 01/19/25 09:48 Fish Containing Products Allergy ALGY-Rash Verified 01/19/25 09:48 NSAIDS (Non-Steroidal Allergy heartburn, Verified 01/19/25 09:48 Anti-Inflamma stomach pain Tetanus Vaccines and Toxoid Allergy unknown Verified 01/19/25 09:48 hydrocodone (From Vicodin) AdvReac Mild ADR-Nausea Verified 01/19/25 09:48 adhesive AdvReac Unknown unknown Verified 01/19/25 09:48 Review of Systems Const: Denies: fever(s), chills, body aches or change in appetite Card: Denies: chest pain Resp: Denies: dyspnea GI: Reports: nausea, vomiting and diarrhea; Denies: abdominal pain : Denies: dysuria Musc: Denies: neck pain or back pain PFS ED PFSH: Medical History Pulmonary nodules 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 Hypothyroidism COVID-2021 History of echocardiogram 06/2023 EF 60%, Grade I/IV diastolic dysfunction, severe AV stenosis 0.99, mean gradient 40.2 mmHg, peak velocity 4.19 ms 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 Primary osteoarthritis of left knee Iron deficiency anemia Dyslipidemia Port-A-Cath in place placed 12/2022 Adrenal insufficiency hospital stay 08/2023 Reversible airway obstruction Lesion of right [place] ureter History of recurrent UTI (urinary tract infection) Interstitial lung disease Asthma Breast cancer Hydronephrosis of right kidney Osteoporosis Arthritis Aortic stenosis Hypertension DVT (deep venous thrombosis) Pulmonary embolism Obesity Surgical History History of cardiac catheterization 07/2023 no obstructive disease Hx of tubal ligation Hx of cystoscopy Hx of colonoscopy Age 65 Hx of cholecystectomy H/O: hysterectomy Hx of cataract surgery S/P tonsillectomy Family History Father , AT 92 Congestive heart failure (CHF) Mother , AT 100 of unknown cause Other CAD (coronary artery disease) Cancer Diabetes Hyperlipidemia Hypertension Stroke Denies family history of Psychiatric illness Chronic kidney disease (CKD) Suicide Family history of premature coronary artery disease Lung disease Social History Smoking and tobacco/nicotine status: never used tobacco/nicotine Alcohol intake: never Substance/Drug Use: never Marital status: / Current occupational status: retired and disabled Physical Exam Const: COMMON NORMALS: no acute distress, patient oriented x3 and healthy appearing HENMT: COMMON NORMALS: normocephalic and atraumatic HEAD & SCALP: normocephalic and atraumatic Eye: COMMON NORMALS: conjunctivae normal CONJUNCTIVA: Yes conjunctivae normal Neck/C-Spine: COMMON NORMALS: full ROM and supple Chest: COMMONS NORMALS: normal inspection of the chest Resp: COMMON NORMALS: normal respiratory effort, No retractions, No use of accessory muscles and clear to auscultation bilaterally AUSCULTATION: clear to auscultation bilaterally Cardio: COMMON NORMALS: regular rate, regular rhythm and No murmurs present (Cardio) RATE: regular rate RHYTHM: regular rhythm GI: COMMON NORMALS: Normal to inspection, nondistended, normoactive bowel sounds present, Soft to palpation, non-tender and no masses PALPATION: Yes Soft to palpation Extremity: COMMON NORMALS: normal to inspection and full ROM Neuro: COMMON NORMALS: patient oriented x3, moves all extremities and no focal motor deficits Psych: COMMON NORMALS: mental status grossly normal, Normal thought process present and cooperative THOUGHT PROCESS: Normal thought process present Skin: COMMON NORMALS: no rashes or lesions noted and no wounds GENERAL SKIN EXAM: no rashes or lesions noted Course Vital Signs: Vital signs: Vital Signs Temperature 97.8 F 01/22/25 06:38 Pulse Rate 77 10/04/25 07:03 Respiratory Rate 18 01/22/25 06:38 Blood Pressure 129/67 01/22/25 07:03 Pulse Oximetry 94 01/22/25 07:03 Oxygen Delivery Me thod Room Air 01/22/25 06:38 MDM - Nausea/Vomiting/Diarrhea Medical Decision Making Patient presents with vomiting along with diarrhea is likely gastroenteritis. Her abdominal exam here is benign she has no signs of obstruction or infectious diarrhea no blood in her stool. Did review her lab work which was normal normal white count no signs of dehydration she feels much improved after Zofran and IV fluids she is able to tolerate p.o. I did go over her labs with her we will prescribe her Zofran for home she is to eat a bland diet she is stable for discharge she is follow-up with PCP and return if worsening she understands agrees to plan. Medical Records I reviewed the patient's medical records. Lab Data I reviewed the patient's lab results. 01/22/25 06:52 01/22/25 06:52 Laboratory Results WBC 5.78 10^3/uL (3.29-11.43) 01/22/25 06:52 RBC 3.83 10^6/uL (3.85-5.65) L 01/22/25 06:52 Hgb 12.00 g/dL (11.27-16.99) 01/22/25 06:52 Hct 37.3 % (36-47) 01/22/25 06:52 MCV 97.4 fl (85-98) 01/22/25 06:52 MCH 31.3 pg (27-33) 01/22/25 06:52 MCHC 32.2 g/dL (30-55) 01/22/25 06:52 RDW 13.0 % (12.1-15.1) 01/22/25 06:52 Plt Count 216 10^3/cmm (157-399) 01/22/25 06:52 MPV 9.3 fL (7.4-10.4) 01/22/25 06:52 Neut % (Auto) 63.2 % 01/22/25 06:52 Lymph % (Auto) 16.3 % 01/22/25 06:52 [place] % (Auto) 13.1 % 01/22/25 06:52 Eos % (Auto) 6.1 % 01/22/25 06:52 Baso % (Auto) 1.0 % 01/22/25 06:52 Neut # (Auto) 3.65 10^3/uL (1.8-7.7) 01/22/25 06:52 Lymph # (Auto) 0.9 10^3/uL (0.8-4.8) 01/22/25 06:52 [place] # (Auto) 0.8 10^3/uL (0.2-0.9) 01/22/25 06:52 Eos # (Auto) 0.4 10^3/uL (0.0-0.8) 01/22/25 06:52 Baso # (Auto) 0.1 10^3/uL (0.0-0.1) 01/22/25 06:52 Nucleated RBC % (auto) 0 % 01/22/25 06:52 Nucleated RBCs # 0.0 /100WBC 01/22/25 06:52 Sodium 134 mmol/L (136-145) L 01/22/25 06:52 Potassium 3.9 mmol/L (3.5-5.1) 01/22/25 06:52 Chloride 99 mmol/L (98-107) 01/22/25 06:52 Carbon Dioxide 26 mmol/L (22-29) 01/22/25 06:52 Anion Gap 12.9 (5-19) 01/22/25 06:52 BUN 19 mg/dL (8-23) 01/22/25 06:52 Creatinine 0.8 mg/dL (0.5-0.9) 01/22/25 06:52 GFR Calculation Not Reportable 01/22/25 06:52 Glucose 96 mg/dL (65-115) 01/22/25 06:52 Calculated Osmolality 280 mOsm/kg (285-295) L 01/22/25 06:52 Calcium 10.5 mg/dL (8.5-10.5) 01/22/25 06:52 Total Bilirubin 0.3 mg/dL (0.15-1.2) 01/22/25 06:52 AST 30 U/L (0-32) 01/22/25 06:52 ALT 16 U/L (0-33) 01/22/25 06:52 Alkaline Phosphatase 87 U/L (35-105) 01/22/25 06:52 Total Protein 6.4 g/dL (6.6-8.7) L 01/22/25 06:52 Albumin 3.5 g/dL (3.5-5.2) 01/22/25 06:52 Globulin 2.9 g/dL (1.3-4.6) 01/22/25 06:52 Lipase 23 U/L (13-60) 01/22/25 06:52 No radiology studies performed this visit Discharge Plan Discharge Patient Disposition: Home Clinical Impression: Vomiting Qualifiers: Vomiting type: unspecified Nausea presence: with nausea Qualified Code(s): R11.2 - Nausea with vomiting, unspecified Diarrhea Qualifiers: Diarrhea type: unspecified type Qualified Code(s): R19.7 - Diarrhea, unspecified Condition: Stable Prescriptions: New ondansetron 4 mg tablet,disintegrating 4 mg PO Q6H PRN (Reason: nausea and vomiting) Qty: 14 0RF No Action tolterodine 4 mg capsule,extended release 24hr 4 mg PO DAILY potassium chloride 10 mEq capsule, extended release 10 meq PO DAILY Prolia 60 mg/mL syringe 60 mg SUBCUT .[id number] cyanocobalamin (vitamin B-12) 2,500 mcg tablet 2,500 mcg PO DAILY (DME) custom inserts See Rx Instructions .Route .MEDSUPPLY Qty: 1 0RF Rx Instructions: As directed levothyroxine 150 mcg capsule 150 mcg PO DAILY Qty: 30 6RF tizanidine 2 mg tablet 2 mg PO DAILY PRN (Reason: Spasms) Eliquis 5 mg tablet 5 mg PO BID Qty: 60 0RF fluoxetine 40 mg capsule 40 mg PO DAILY lorazepam 0.5 mg tablet 0.5 mg PO DAILY ropinirole 0.25 mg tablet 0.25 mg PO DAILY acetaminophen 325 mg Tablet 325 mg PO QID PRN (Reason: Pain) meclizine 25 mg tablet 25 mg PO QID PRN (Reason: dizziness) Qty: 20 0RF hd-on-JB-omega 3,6,9 no.3 400 mcg Capsule 1 cap PO DAILY Discharge Orders: Discharge ED (Routine); Ordered 01/22/25 Ordered By: Everette Renee Referrals: Sánchez Macario [Primary Care Provider, Family Practice] - 4-7 days Discharge Diet: Advance as tolerated Discharge Activity: Resume usual activity Patient Instructions: Acute Nausea and Vomiting (ED), Acute Diarrhea (ED) Print Language: Mongolian Coding Level of Care Code ED Customer Care Assistant for Malu Cooper
[2025-01-22 06:57] LABS: Hematocrit 37.3 % (36-47); Hemoglobin 12.00 g/dL (11.27-16.99); Mean Corpuscular HGB Conc 32.2 g/dL (30-55); Mean Corpuscular Hemoglobin 31.3 pg (27-33); Mean Corpuscular Volume 97.4 fl (85-98); Nucleated Red Blood Cells % 0 %; Platelet Count 216 10^3/cmm (157-399); Red Blood Count 3.83 10^6/uL (3.85-5.65); White Blood Count 5.78 10^3/uL (3.29-11.43)
[2025-01-22] MEDS: ondansetron 2 mg/ML SDV 2 mL 4 MG IVP (06:58)
[2025-01-22 07:03] VITALS: BP 129/67; PULSE 77; O2SAT 94
[2025-01-22 07:20] LABS: Alanine Aminotransferase 16 U/L (0-33); Albumin Level 3.5 g/dL (3.5-5.2); Alkaline Phosphatase 87 U/L (35-105); Anion Gap 12.9 (5-19); Aspartate Amino Transferase 30 U/L (0-32); Blood Urea Nitrogen 19 mg/dL (8-23); Calcium 10.5 mg/dL (8.5-10.5); Carbon Dioxide 26 mmol/L (22-29); Chloride 99 mmol/L (98-107); Creatinine Clr Calc Pharmacy 58.6409; Globulin 2.9 g/dL (1.3-4.6); Glucose 96 mg/dL (65-115); Lipase 23 U/L (13-60); Osmolality Calculated 280 mOsm/kg (285-295); Potassium 3.9 mmol/L (3.5-5.1); Sodium 134 mmol/L (136-145); Total Protein 6.4 g/dL (6.6-8.7)
--- NOTE | 2025-01-22 07:51 | PC.NURSE ---
PO challenge successful, pt denies n/v.
--- NOTE | 2025-01-22 07:55 | PC.NURSE ---
attempted to call pt's daughter and home phone, no answer. pt unsure of number to call for ride home.
[2025-01-22 08:00] VITALS: BP 129/67; PULSE 86; O2SAT 92
== END 2025-01-22 09:25 | disposition home or self-care (01) ==
PROVIDERS: Emergency Provider Emergency Medicine; PCP Family Medicine
DX: R11.2 Nausea with vomiting, unspecified (principal); R19.7 Diarrhea, unspecified; Z79.01 Long term (current) use of anticoagulants; E78.5 Hyperlipidemia, unspecified; I10 Essential (primary) hypertension; Z85.3 Personal history of malignant neoplasm of breast
CPT/HCPCS: 36415; 80053; 83690; 85025; 96361; 96374; 99284; J2405; J7030

== ENCOUNTER 2025-01-28 11:40 | Emergency (ER) | payer MEDICARE, MEDICAID, SELFPAY ==
[2025-01-28] VITALS (9 sets, daily range): BP systolic 101–132; BP diastolic 59–99; PULSE 85–90; RESP 16–18; TEMP 36.7; O2SAT 87–97; BMI 31.4
--- NOTE | 2025-01-28 11:45 | ECG_ITS ---
[facility] Test Date: 2025-01-28 Pat Name: Janet Calvillo Department: Room: Gender: Female Director Banking: : [id number] Requested By: Yordan Albarado Order Number: [id number] Reading MD: WILFRID LEE Measurements Intervals [place] Rate: 87 P: 46 OR: 166 QRS: -24 QRSD: 148 T: 90 QT: 417 QTc: 502 Interpretive Statements SINUS RHYTHM LEFT BUNDLE BRANCH BLOCK [120+ ms QRS DURATION, 80+ ms Q/S IN V1/V2, 85+ ms R IN I/aVL/V5/V6] Compared to ECG 10/25/2024 09:17:53 Left bundle-branch block now present First degree AV block no longer present Intraventricular conduction delay no longer present Myocardial infarct finding no longer present Electronically Signed On 01-30-2025 23:20:03 CDT by WILFRID LEE [id number]
--- NOTE | 2025-01-28 11:45 | XRR_ITS ---
PROCEDURE INFORMATION: Exam: XR Chest Exam date and time: 01/28/2025 12:08 PM Age: 84 years old Clinical indication: Cough and dyspnea; Additional info: Dyspnea/cough TECHNIQUE: Imaging protocol: Radiologic exam of the chest. Views: 1 view. COMPARISON: CR XR chest 1V portable [id number] 01/05/2025 3:14 PM FINDINGS: Tubes, catheters and devices: Right-sided central venous line/port similar to prior study. Lungs: Interval increased opacity right hemithorax suggesting moderate right pleural effusion with associated infiltrate and/or atelectasis. Persistent nodular opacities lungs bilaterally. Slight infiltrate and/or atelectasis left lung base. Pleural spaces: No large or obvious pneumothorax seen. Heart/Mediastinum: Heart size difficult to evaluate due to opacity right hemithorax obscuring portions of right arm margin, appears grossly similar to prior study. Evidence of prior aortic valve replacement. Vasculature: Atherosclerotic disease. Bones/joints: Degenerative changes spine. Soft tissues: Clips project along left lateral chest wall/axilla similar to prior study. XR/XR chest 1V portable [id number] IMPRESSION: 1. Interval increased opacity right hemithorax suggesting moderate right pleural effusion with associated infiltrate and/or atelectasis. Slight infiltrate and/or atelectasis left lung base. 2. Persistent nodular opacities lungs bilaterally.
--- NOTE | 2025-01-28 12:00 | W.ED.GENADLT ---
HPI - General Adult General: Chief complaint: Shortness of Breath/Dyspnea Stated complaint: SOB Time Seen by Provider: 01/28/25 11:41 History of Present Illness: 84-year-old female presents emergency room complaining of increasing shortness of breath. She is normally on oxygen she is now requiring 4 L. She has previously had thoracentesis for right pleural effusion earlier this month. She denies any chest pain no hemoptysis. Patient has a known history of metastatic lung cancer recently had thoracentesis for pleural effusion. She normally has not been on oxygen. She otherwise has not had any fever sweats chills or chest pain Associated symptoms: Reports dyspnea; Deny chest pain or rash Related Data Home Medications ?Medication ?Instructions ?Recorded ?Confirmed potassium chloride 10 mEq 10 meq PO DAILY 12/28/19 01/28/25 capsule,extended release tolterodine 4 mg capsule,extended 4 mg PO DAILY 12/28/19 01/28/25 release 24 hr denosumab 60 mg/mL subcutaneous 60 mg SUBCUT .[id number] 06/26/20 01/28/25 syringe (Prolia) cyanocobalamin (vitamin B-12) 2,500 mcg PO QAM 07/19/21 01/28/25 2,500 mcg tablet fluoxetine 40 mg capsule 40 mg PO DAILY 12/08/23 01/28/25 ropinirole 0.25 mg tablet 0.25 mg PO DAILY 12/15/23 01/28/25 tizanidine 2 mg tablet 2 mg PO DAILY PRN Spasms 03/15/24 01/28/25 acetaminophen 325 mg tablet 325 mg PO QID PRN Pain 04/22/24 01/28/25 hydrocortisone 20 mg tablet See Rx Instructions .Route .COMPLEX 01/22/25 01/28/25 levothyroxine 150 mcg tablet 150 mcg PO QAM 01/22/25 01/28/25 lorazepam 1 mg tablet 1 mg PO Q8H PRN Anxiety 01/22/25 01/28/25 multivitamin with minerals 1 tab PO DAILY 01/22/25 01/28/25 cranberry 500 mg capsule 500 mg PO QAM 01/28/25 01/28/25 lactobacillus combination no.4 3 3,000 mmu cells PO DAILY 01/28/25 01/28/25 billion cell capsule (Probiotic) loperamide 2 mg capsule 2 mg PO Q4H PRN Diarrhea 01/28/25 01/28/25 magnesium oxide 400 mg PO BID 01/28/25 01/28/25 red yeast rice 600 mg capsule 600 mg PO BID 01/28/25 01/28/25 vitamin E 268 mg (400 unit) capsule 268 mg PO DAILY 01/28/25 01/28/25 vitamins-lipotropics tablet 1 tab PO BID 01/28/25 01/28/25 Previous Rx's ?Medication ?Instructions ?Recorded custom inserts #1 ea 08/06/23 apixaban 5 mg tablet (Eliquis) 5 mg PO BID #60 tabs 09/11/23 meclizine 25 mg tablet 25 mg PO QID PRN dizziness #20 tabs 10/15/24 ondansetron 4 mg disintegrating 4 mg PO Q6H PRN nausea and 01/22/25 tablet vomiting #14 tabs Allergies Allergy/AdvReac Type Severity Reaction Status Date / Time tetanus toxoid, adsorbed Allergy Severe unknown Verified 01/19/25 09:48 ciprofloxacin (From Cipro) Allergy Unknown ADR-Vomitin Verified 01/19/25 09:48 g erythromycin base Allergy Unknown ADR-Vomitin Verified 01/19/25 09:48 g gabapentin (From Neurontin) Allergy Unknown unknown Verified 01/19/25 09:48 Influenza Virus Vaccines Allergy Unknown unknown Verified 01/19/25 09:48 tramadol (From Ultram) Allergy Unknown unknown Verified 01/19/25 09:48 aspirin Allergy stomach Verified 01/19/25 09:48 pain, unbearable egg Allergy unknown Verified 01/19/25 09:48 Fish Containing Products Allergy ALGY-Rash Verified 01/19/25 09:48 NSAIDS (Non-Steroidal Allergy heartburn, Verified 01/19/25 09:48 Anti-Inflamma stomach pain Tetanus Vaccines and Toxoid Allergy unknown Verified 01/19/25 09:48 hydrocodone (From Vicodin) AdvReac Mild ADR-Nausea Verified 01/19/25 09:48 adhesive AdvReac Unknown unknown Verified 01/19/25 09:48 Review of Systems Const: Denies: fever(s) or chills Card: Reports: dyspnea on exertion; Denies: chest pain Resp: Reports: dyspnea GI: Denies: abdominal pain : Denies: dysuria, urinary frequency or urinary urgency Musc: Denies: neck pain or back pain Skin/Breast: Denies: rash PFSH ED PFSH: Medical History Pulmonary nodules 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 Primary osteoarthritis of left knee Iron deficiency anemia Dyslipidemia Port-A-Cath in place placed 12/2022 Adrenal insufficiency hospital stay 08/2023 Reversible airway obstruction Lesion of right [place] ureter History of recurrent UTI (urinary tract infection) Interstitial lung disease Asthma Breast cancer Hydronephrosis of right kidney Osteoporosis Arthritis Aortic stenosis Hypertension DVT (deep venous thrombosis) Pulmonary embolism Obesity Surgical History History of cardiac catheterization 07/2023 no obstructive disease Hx of tubal ligation Hx of cystoscopy Hx of colonoscopy Age 65 Hx of cholecystectomy H/O: hysterectomy Hx of cataract surgery S/P tonsillectomy Family History Father , AT 92 Congestive heart failure (CHF) Mother , AT 100 of unknown cause Other CAD (coronary artery disease) Cancer Diabetes Hyperlipidemia Hypertension Stroke Denies family history of Psychiatric illness Chronic kidney disease (CKD) Suicide Family history of premature coronary artery disease Lung disease Social History Smoking and tobacco/nicotine status: never used tobacco/nicotine Alcohol intake: never Substance/Drug Use: never Marital status: / Current occupational status: retired and disabled Physical Exam Const: GENERAL APPEARANCE: cooperative ORIENTATION/CONSCIOUSNESS: Yes awake, Yes oriented to person, Yes oriented to place and Yes oriented to time HENMT: COMMON NORMALS: normocephalic, atraumatic and hearing grossly normal bilaterally HEAD & SCALP: normocephalic and atraumatic Resp: OTHER: Crackles on the left diminished breath sounds in the right lower two thirds with egophony dullness to percussion Cardio: COMMON NORMALS: regular rate, regular rhythm and No murmurs present (Cardio) RATE: regular rate RHYTHM: regular rhythm GI: COMMON NORMALS: Soft to palpation and No hepatosplenomegaly present AUSCULTATION: Yes normoactive bowel sounds PALPATION: Yes Soft to palpation, No Tenderness to palpation present (GI), No Guarding due to palpation present (GI) and Yes No hepatosplenomegaly present Extremity: COMMON NORMALS: normal to inspection, capillary refill normal, no clubbing, cyanosis or edema, no calf tenderness and no pedal edema Neuro: SENSORIUM/ORIENTATION: Yes oriented to person, Yes oriented to place and Yes oriented to time Skin: COMMON NORMALS: no rashes or lesions noted GENERAL SKIN EXAM: no rashes or lesions noted Course Vital Signs: Vital signs: Vital Signs Temperature 98.1 F 01/28/25 11:42 Pulse Rate 88 01/28/25 18:06 Respiratory Rate 16 01/28/25 18:06 Blood Pressure 113/71 01/28/25 18:06 Pulse Oximetry 91 01/28/25 18:06 Oxygen Delivery Me thod Nasal Cannula 01/28/25 11:42 Oxygen Flow Rate 2 01/28/25 17:24 MDM - General Adult Medical Decision Making Patient has large right pleural effusion discussed Dr. Brown she reviewed the films ultrasound done she was able to do thoracentesis and remove 1 L of bloody fluid. Patient recently had lab work done on fluids and then was dumped this time. She does have some improvement and we are able to titrate her oxygen down. She lives at home her grandson lives with her but is not there full-time. She does not feel she can manage it any longer on her own do not have indication for admission to the hospital patient is willing to go to halfway. Medical Records I reviewed the patient's medical records. Lab Data I reviewed the patient's lab results. 01/28/25 12:27 01/28/25 12:27 Radiology Impressions Thoracentesis Ultrasound 01/28/25 13:13 IMPRESSION: 1. RIGHT thoracentesis yielding 1000 cc of fluid. 2. Chest radiograph to follow to evaluate for pneumothorax. Chest X-Ray 01/28/25 15:31 IMPRESSION: No pneumothorax status post RIGHT thoracentesis. Patient has numerous metastatic pulmonary nodules. Laboratory Results WBC 5.82 10^3/uL (3.29-11.43) 01/28/25 12:27 RBC 3.74 10^6/uL (3.85-5.65) L 01/28/25 12: Hgb 11.80 g/dL (11.27-16.99) 01/28/25 12: Hct 35.6 % (36-47) L 01/28/25 12: MCV 95.2 fl (85-98) 01/28/25 12: MCH 31.6 pg (27-33) 01/28/25 12: MCHC 33.1 g/dL (30-55) 01/28/25 12: RDW 12.7 % (12.1-15.1) 01/28/25: Plt Count 222 10^3/cmm (157-399) 01/28/25: MPV 9.3 fL (7.4-10.4) 01/28/25: Neut % (Auto) 72.8 % 01/28/25 12: Lymph % (Auto) 11.5 % 01/28/25: Linn % (Auto) 10.5 % 01/28/25 12: Eos % (Auto) 4.3 % 01/28/25: Baso % (Auto) 0.7 % 01/28/25: Neut # (Auto) 4.24 10^3/uL (1.8-7.7) 01/28/25 12: Lymph # (Auto) 0.7 10^3/uL (0.8-4.8) L 01/28/25: Linn # (Auto) 0.6 10^3/uL (0.2-0.9) 01/28/25 12: Eos # (Auto) 0.3 10^3/uL (0.0-0.8) 01/28/25: Baso # (Auto) 0.0 10^3/uL (0.0-0.1) 01/28/25: Nucleated RBC % (auto) 0 % 01/28/25: Nucleated RBCs # 0.0 /100WBC 01/28/25 12: Sodium 131 mmol/L (136-145) L 01/28/25 12: Potassium 3.6 mmol/L (3.5-5.1) 01/28/25 12: Chloride 92 mmol/L (98-107) L 01/28/25 12:27 Carbon Dioxide 26 mmol/L (22-29) 01/28/25 12:27 Anion Gap 16.6 (5-19) 01/28/25 12:27 BUN 11 mg/dL (8-23) 01/28/25 12: Creatinine 0.8 mg/dL (0.5-0.9) 01/28/25 12:27 GFR Calculation Not Reportable 01/28/25 12:27 Glucose 107 mg/dL (65-115) 01/28/25 12:27 Calculated Osmolality 272 mOsm/kg (285-295) L 01/28/25 12: Calcium 10.6 mg/dL (8.5-10.5) H 01/28/25 12: Total Bilirubin 0.3 mg/dL (0.15-1.2) 01/28/25 12: AST 32 U/L (0-32) 01/28/25 12: ALT 16 U/L (0-33) 01/28/25 12:27 Alkaline Phosphatase 96 U/L (35-105) 01/28/25 12:27 Total Protein 6.5 g/dL (6.6-8.7) L 01/28/25 12:27 Albumin 3.6 g/dL (3.5-5.2) 01/28/25 12: Globulin 2.9 g/dL (1.3-4.6) 01/28/25 12:27 Urine Color Dark yellow (Yellow) A 01/28/25 13:58 Urine Appearance Cloudy (CLEAR) A 01/28/25 13:58 Urine pH 5.5 (5-7) 01/28/25 13:58 Ur Specific Goodman 1.025 (1.005-1.030) 01/28/25 13:58 Urine Protein 1+ (Negative) A 01/28/25 13:58 Urine Glucose (UA) Negative (Normal) 01/28/25 13:58 Urine Ketones 1+ (Negative) H 01/28/25 13:58 Urine Blood 3+ (Negative) A 01/28/25 13:58 Urine Nitrate Negative (Negative) 01/28/25 13:58 Urine Bilirubin Negative (Negative) 01/28/25 13:58 Urine Urobilinogen 1.0 mg/dL (Negative) 01/28/25 13:58 Ur Leukocyte Esterase 2+ (Negative) A 01/28/25 13:58 Urine RBC 25-40 /hpf (0-2) H 01/28/25 13:58 Urine WBC 10-15 /hpf (0-5) H 01/28/25 13:58 Ur Squamous Epith Cells 5-10 /hpf (0-5) H 01/28/25 13:58 Calcium Oxalate Crystal 5-10 /hpf H 01/28/25 13:58 Amorphous Sediment Not Reportable 01/28/25 13:58 Urine Bacteria 2+ /hpf (NONE) H 01/28/25 13:58 Hyaline Casts 5-10 /lpf H 01/28/25 13:58 All radiology interpretation(s) finalized by discharge Discharge Plan Discharge Patient Disposition: Home Clinical Impression: Pleural effusion, right, Pulmonary nodules, 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, Severe aortic valve stenosis, Breast cancer metastasized to lung Condition: Stable Prescriptions: No Action tolterodine 4 mg capsule,extended release 24hr 4 mg PO DAILY potassium chloride 10 mEq capsule, extended release 10 meq PO DAILY Prolia 60 mg/mL syringe 60 mg SUBCUT .[id number] cyanocobalamin (vitamin B-12) 2,500 mcg tablet 2,500 mcg PO QAM (DME) custom inserts See Rx Instructions .Route .MEDSUPPLY Qty: 1 0RF Rx Instructions: As directed tizanidine 2 mg tablet 2 mg PO DAILY PRN (Reason: Spasms) Eliquis 5 mg tablet 5 mg PO BID Qty: 60 0RF ondansetron 4 mg tablet,disintegrating 4 mg PO Q6H PRN (Reason: nausea and vomiting) Qty: 14 0RF levothyroxine 150 mcg tablet 150 mcg PO QAM hydrocortisone 20 mg tablet See Rx Instructions .ROUTE .COMPLEX Rx Instructions: TAKE 1 TABLET BY MOUTH IN THE MORNING AND 1/2 (ONE-HALF) TABLET IN THE EVENING. lorazepam 1 mg tablet 1 mg PO Q8H PRN (Reason: Anxiety) multivitamin with minerals Tablet 1 tab PO DAILY fluoxetine 40 mg capsule 40 mg PO DAILY ropinirole 0.25 mg tablet 0.25 mg PO DAILY acetaminophen 325 mg Tablet 325 mg PO QID PRN (Reason: Pain) meclizine 25 mg tablet 25 mg PO QID PRN (Reason: dizziness) Qty: 20 0RF loperamide [Imodium] 2 mg Capsule 2 mg PO Q4H PRN (Reason: Diarrhea) Rx Instructions: administer after each loose stool until symptoms controlled; do not exceed 8 mg per 24 hrs vitamin E 268 mg (400 unit) Capsule 268 mg PO DAILY cranberry 500 mg Capsule 500 mg PO QAM Rx Instructions: administer with meals Lipoflavonoid Tablet 1 tab PO BID red yeast rice 600 mg Capsule 600 mg PO BID Rx Instructions: give with meal/snack Probiotic 3 billion cell Capsule 3,000 mmu cells PO DAILY Rx Instructions: administer with a meal magnesium oxide 400 mg magnesium Tablet 400 mg PO BID Discharge Orders: Discharge ED (Routine); Ordered 01/28/25 Ordered By: Yordan Stewart Other Ambulatory Orders: DME: Oxygen (Order) Location: None Selected Ordered By: Yordan Stewart Referrals: Sánchez Macario [Primary Care Provider, Family Practice] Discharge Diet: Usual diet Discharge Activity: Limit activity as instructed Patient Instructions: Opioid Safety, Pain Management, Patient Portal & Zhanna Instructions Activity Restrictions/Additional Instructions: Thank you for choosing [facility] for your healthcare needs today. It is very important that you follow up as instructed or that you return to the Emergency Department should you have concerns or if your condition changes or worsens in any way. Emergency department visits are focused on emergent conditions, in some cases you may require further evaluation on an outpatient basis. You were seen in the emergency room with complaints shortness of breath this was caused by a large right pleural effusion (fluid in the lung cavity). This fluid is from the breast cancer that has metastasized to the lung. We did remove some of fluid in the emergency room but is likely to recur. You will now need oxygen continuously. Recommend looking at increased levels of care such as halfway to help with your daily activities of living. We had discussed in you had expressed plans to make arrangements to be admitted to the halfway from home. (Please note that included in your discharge packet is information concerning opioid safety and pain management. This information is given to all patients were discharged from the ER regardless of their discharge diagnosis or the medicines they usually take or are prescribed.) Print Language: Venezuelan Coding Level of Care Code ED Underground [employer]er for Malu Cooper
[2025-01-28 12:33] LABS: Hematocrit 35.6 % (36-47); Hemoglobin 11.80 g/dL (11.27-16.99); Mean Corpuscular HGB Conc 33.1 g/dL (30-55); Mean Corpuscular Hemoglobin 31.6 pg (27-33); Mean Corpuscular Volume 95.2 fl (85-98); Nucleated Red Blood Cells % 0 %; Platelet Count 222 10^3/cmm (157-399); Red Blood Count 3.74 10^6/uL (3.85-5.65); White Blood Count 5.82 10^3/uL (3.29-11.43)
[2025-01-28 12:48] LABS: Alanine Aminotransferase 16 U/L (0-33); Albumin Level 3.6 g/dL (3.5-5.2); Alkaline Phosphatase 96 U/L (35-105); Anion Gap 16.6 (5-19); Aspartate Amino Transferase 32 U/L (0-32); Blood Urea Nitrogen 11 mg/dL (8-23); Calcium 10.6 mg/dL (8.5-10.5); Carbon Dioxide 26 mmol/L (22-29); Chloride 92 mmol/L (98-107); Creatinine Clr Calc Pharmacy 58.6409; Globulin 2.9 g/dL (1.3-4.6); Glucose 107 mg/dL (65-115); Osmolality Calculated 272 mOsm/kg (285-295); Potassium 3.6 mmol/L (3.5-5.1); Sodium 131 mmol/L (136-145); Total Protein 6.5 g/dL (6.6-8.7)
--- NOTE | 2025-01-28 13:13 | US_ITS ---
WS: [id number] ULTRASOUND-GUIDED THORACENTESIS, RIGHT HISTORY: Right pleural effusion Procedure, risks, and complications were explained to the patient. With the patient in an upright position, the skin over the RIGHT posterior thorax was cleansed with ChloraPrep and anesthetized with 1% buffered lidocaine. A 5 Spanish Yueh needle is inserted into the pleural fluid without complication. Approximately 1000 cc of light red pleural fluid is removed without difficulty. Patient is on Eliquis and this was not withheld prior to the procedure. Patient is aware of the risk. / thoracentesis [id number] IMPRESSION: 1. RIGHT thoracentesis yielding 1000 cc of fluid. 2. Chest radiograph to follow to evaluate for pneumothorax.
--- NOTE | 2025-01-28 13:22 | PC.PHAR ---
Addendum entered by Kaitlin Jaquez 01/28/25 13:26: [facility] current med list 01/28/25 1:25pm Addendum entered by Kaitlin Jaquez 01/28/25 13:23: [phone] Original Note: Pt uses [facility] for medication set up
[2025-01-28 14:06] LABS: Glucose Urine UA Negative (Normal); Nitrate Urine Negative (Negative); Specific Gravity, Urine 1.025 (1.005-1.030)
[2025-01-28 14:18] LABS: UA Manual Slide Review YES
[2025-01-28 14:19] LABS: Add Urine Microscopic? YES
--- NOTE | 2025-01-28 15:31 | XR_ITS ---
WS: [id number] PORTABLE CHEST HISTORY: post thoracentesis COMPARISON: Study earlier the same day. No pneumothorax status post RIGHT thoracentesis. There is a small residual RIGHT pleural effusion and/or atelectasis at the lung base. Numerous pulmonary nodules are noted throughout both lungs. Cardiac size: Normal. Mediastinum/Aorta: Mild atherosclerosis aorta. No osseous abnormality seen. Right-sided Mediport. Aortic valve replacement. XR/XR chest 1V portable [id number] IMPRESSION: No pneumothorax status post RIGHT thoracentesis. Patient has numerous metastatic pulmonary nodules.
--- NOTE | 2025-01-31 09:05 | PC.SOCIAL ---
TYLER spoke with nursing staff at [facility] on Friday at 1630; they reported that their intake team had left and couldn't accept patient. TYLER called [facility] at this time, SS not available. Called Ariella to f/u on referral; voicemail left and asked that she follow up with patient's family.
== END 2025-01-28 18:06 | disposition home or self-care (01) ==
PROVIDERS: Emergency Provider Family Medicine; PCP Family Medicine
DX: J90 Pleural effusion, not elsewhere classified (principal); R91.8 Other nonspecific abnormal finding of lung field; C50.412 Malignant neoplasm of upper-outer quadrant of left female breast; C78.00 Secondary malignant neoplasm of unspecified lung; I35.0 Nonrheumatic aortic (valve) stenosis; Z79.01 Long term (current) use of anticoagulants; E78.5 Hyperlipidemia, unspecified; I10 Essential (primary) hypertension; Z99.81 Dependence on supplemental oxygen
CPT/HCPCS: 32555; 71045; 80053; 81001; 85025; 87077; 87086; 87186; 93005; 94760; 99285

== ENCOUNTER 2025-02-07 04:52 | Emergency (ER) | payer MEDICARE, MEDICAID, SELFPAY ==
[2025-02-07 04:53] VITALS: BP 117/79; PULSE 99; RESP 20; TEMP 36.5; O2SAT 98; BMI 31.4
--- NOTE | 2025-02-07 04:58 | XRR_ITS ---
PROCEDURE INFORMATION: Exam: XR Right Ribs with PA Chest Exam date and time: 02/07/2025 4:58 AM Age: 84 years old Clinical indication: Injury or trauma; Rib area; Blunt trauma (contusions or hematomas); Prior surgery; Surgery date: 6+ months; Surgery type: Port a cath. Tavr; C/O RT sided rib pain after a fall yesterday evening. History of breast cancer with lung mets. TECHNIQUE: Imaging protocol: Radiologic exam of the right ribs with PA chest. Views: 3 views COMPARISON: CR XR chest 1V portable [id number] 01/28/2025 3:31 PM FINDINGS: Tubes, catheters and devices: Medication port is seen on the right with its tip overlying the SVC. Lungs: There are multiple lung nodules compatible with metastatic disease. There is opacity at the right lung base obscuring the right hemidiaphragm. This may reflect layering pleural fluid, atelectasis, pneumonia or a combination. Pleural spaces: Suspect right pleural effusion. Heart/Mediastinum: The heart is enlarged. There is calcified plaque involving the aorta. There is a valvular prosthesis present. Bones/joints: There is a fracture involving the right 6th rib. No additional fractures are appreciated. XR/XR ribs RT mn 3V w CXR1V [id number] IMPRESSION: 1. Bilateral pulmonary nodules compatible with metastatic disease similar to that seen on prior exam. 2. Right basilar opacity worse on today's exam. 3. Fracture involving the right 6th rib.
--- OUTSIDE RECORDS SUMMARY | 2025-02-07 05:00 | XMS_ITS | Encounter Summary ---
Author Organization [facility] Address [address] [place] [address] Care Team Providers Care Lard Renderer Name Role Phone Sánchez Macario MD Primary Care Provider [phone] Encounter Details Date Type Department Care Team [...] on file Legal Sex Female 9:22 AM MERCHANDISING REPRESENTATIVE Gender Identity Not on file Sexual Orientation Not on file COVID-19 Exposure Response Date Recorded In the last month, have you been in contact with someone who was confirmed or suspected to have Coronavirus / COVID-19? No / Unsure 05/11/2021 10:11 AM MERCHANDISING REPRESENTATIVE documented as of this encounter Plan of Treatment Upcoming Encounters Date Type Department Care Team (Late st Contact Info) Description 02/10/2025 11:30 AM CDT Appointment [facility] [address] [place] [address] Gallito Lance MD [address] [facility] [address] [place] [phone] 02/10/2025 1:00 PM CDT Office Visit [facility] [address] [facility] [address] [place] [phone] Sarita Oro, [facility] [address] [facility] [address] [place] [phone] 04/29/2025 4:00 PM MERCHANDISING REPRESENTATIVE Office Visit [facility] [place] [address] [phone] Sánchez Macario MD [address] [phone] documented as of this encounter Visit Diagnoses Not on filedocumented in this encounter Additional Health Concerns Infection Onset Date Last Indicated Resolved Time COVID-19 05/11/2021 05/11/2021 05/31/2021 2:22 AM MERCHANDISING REPRESENTATIVE R/O Respiratory 06/07/2021 06/07/2021 06/07/2021 1 0:14 PM MERCHANDISING REPRESENTATIVE COVID-19 04/18/2023 04/18/2023 05/08/2023 1:16 AM MERCHANDISING REPRESENTATIVE R/O C. diff 09/04/2023 09/04/2023 09/04/2023 11:4 7 PM CDT R/O COVID-19 09/04/2023 09/04/2023 09/04/2023 6:46 PM CDT R/O COVID-19 11/11/2023 11/11/2023 11/11/2023 1:08 PM CDT Assessment Noted Time PHQ-9 Depression Total Score: 1 12/14/19 21 11:24 AM CDT documented as of this encounter Care Teams Lard Renderer Relationship Specialty Start Date End Date Sánchez Macario MD [address] [phone] PCP - General Family Practice 04/10/21 documented as of this encounter
--- OUTSIDE RECORDS SUMMARY | 2025-02-07 05:00 | XMS_ITS | Encounter Summary ---
Author Organization [facility] Address [address] [place] [address] Care Team Providers Care Musical Instrument Maker Name Role Phone Sánchez Macario MD Primary Care Provider [phone] Encounter Details Date Type Department Care Team [...] often do you attend chur ch or jehovah's witness services? Never 01/05/2020 Do you belong to [...] on file Legal Sex Female 9:22 AM AUDIT MGR Gender Identity Not on file Sexual Orientation Not on file COVID-19 Exposure Response Date Recorded In the last month, have you been in contact with someone who was confirmed or suspected to have Coronavirus / COVID-19? Yes 05/18/2021 1:41 PM AUDIT MGR documented as of this encounter Plan of Treatment Upcoming Encounters Date Type Department Care Team (Late st Contact Info) Description 02/10/2025 11:30 AM CDT Appointment [facility] [address] [place] [phone] Gallito Lance MD [address] [facility] [address] [place] [phone] 02/10/2025 1:00 PM CDT Office Visit [facility] [address] [facility] [address] [place] [phone] Sarita Oro, [facility] [address] [facility] [address] [place] [phone] 04/29/2025 4:00 PM AUDIT MGR Office Visit [facility] [place] [address] [phone] Sánchez Macario MD [address] [phone] documented as of this encounter Visit Diagnoses Not on filedocumented in this encounter Additional Health Concerns Infection Onset Date Last Indicated Resolved Time COVID-19 05/11/2021 05/11/2021 05/31/2021 2:22 AM AUDIT MGR R/O Respiratory 06/07/2021 06/07/2021 06/07/2021 1 0:14 PM AUDIT MGR COVID-19 04/18/2023 04/18/2023 05/08/2023 1:16 AM AUDIT MGR R/O C. diff 09/04/2023 09/04/2023 09/04/2023 11:4 7 PM CDT R/O COVID-19 09/04/2023 09/04/2023 09/04/2023 6:46 PM CDT R/O COVID-19 11/11/2023 11/11/2023 11/11/2023 1:08 PM CDT Assessment Noted Time PHQ-9 Depression Total Score: 1 12/14/19 11:24 AM CDT documented as of this encounter Care Teams Musical Instrument Maker Relationship Specialty Start Date End Date Sánchez Macario MD [address] [phone] PCP - General Family Practice 04/10/21 documented as of this encounter
--- OUTSIDE RECORDS SUMMARY | 2025-02-07 05:00 | XMS_ITS | Encounter Summary ---
Author Organization [facility] Address [address] [place] [address] Care Team Providers Care Welding Equipment Sales Representative Name Role Phone Fabiola Soto MD Primary Care Provider [phone] [phone] Reason for Referral * Outpatient Services (Routine) - Closed Specialty Diagnoses / Procedures Referred By Cleopatra jimenez Referred To Contact Diagnoses Screening mammogram Procedures MAMMO SCREENING BILAT Philly Darling APRN NO ADDRESS ON FILE Referral ID Status Reason Start Date Expiration Date Visits Re quested Visits Authorized [id number] Closed 10/01/2010 03/30/2011 1 1 Encounter Details Date Type Department Care Team (Late st Contact Info) Description 10/01/2010 Ancillary Orders [facility] Imaging External Read [address] [place] [address] Philly Darling APRN NO ADDRESS ON FILE Screening mammogram Social History Tobacco Use Types Packs/Day Years Used Date Smoking Tobacco: Never Alcohol Use Standard Drinks/Week Comments Yes 4.2 (1 standard drink = 0.6 oz p ure alcohol) month Comments No Sex and Gender Information Value Date Recorded Sex Assigned at Not on file Legal Sex Female 5:07 AM INSPECTOR HOT FORGINGS Gender Identity Not on file Sexual Orientation [...] 09/26/10: Comparison studies are now available from [facility] dated 08/06/06 and 06/27/05. A moderate amount [...] of trying to retrieve prior films from [facility]. Those are not available at the [...] by the Computer Aided Detection system (CAD), 72xuaner, Version 3.1. Procedure Note Elizabeth Rosas MD / Kurt Granados MD - 10/15/2010 BILATERAL SCREENING MAMMOGRAM: Bilateral CC and MLO views were obtained. We are in the process of tryingto retrieve prior films from [facility]. Those are not available at thetime [...] analyzed by the Computer Aided Detection system(CAD), StudyApps ImageDefine My Stylecker, Version 3.1. IMPRESSION: Incomplete. Obtain priors. If [...] documented as of this encounter Care Teams Welding Equipment Sales Representative Relationship Specialty Start Date End Date Fabiola Soto MD [address] [phone] PCP - General Family Practice 05/27/13 documented as of this encounter
--- OUTSIDE RECORDS SUMMARY | 2025-02-07 05:00 | XMS_ITS | Encounter Summary ---
Author Organization [facility] Address [address] [place] [address] Care Team Providers Care Gantry Crane Operator Name Role Phone Sánchez Macario MD Primary Care Provider [phone] [phone] Encounter Details Date Type Department Care Team [...] any clubs o r organizations such as protestant groups, unions, fraternal or athletic groups, or [...] on file Legal Sex Female 9:22 AM MMD UNIT TEACHER Gender Identity Not on file Sexual Orientation Not on file COVID-19 Exposure Response Date Recorded In the last month, have you been in contact with someone who was confirmed or suspected to have Coronavirus / COVID-19? Yes 05/18/2021 1:41 PM MMD UNIT TEACHER documented as of this encounter Plan of Treatment Upcoming Encounters Date Type Department Care Team (Late st Contact Info) Description 02/10/2025 11:30 AM CDT Appointment [facility] Echo [address] [place] [phone] Gallito Lance MD [address] [facility] [address] [place] [phone] 02/10/2025 1:00 PM CDT Office Visit [facility] [address] [facility] [address] [place] [phone] Sarita rOo, [facility] [address] [facility] [address] [place] [phone] 04/29/2025 4:00 PM MMD UNIT TEACHER Office Visit [facility] Family Medicine [place] [address] [phone] Sánchez Macario MD [address] [phone] documented as of this encounter Visit Diagnoses Not on filedocumented in this encounter Additional Health Concerns Infection Onset Date Last Indicated Resolved Time COVID-19 05/11/2021 05/11/2021 05/31/2021 2:22 AM MMD UNIT TEACHER R/O Respiratory 06/07/2021 06/07/2021 06/07/2021 1 0:14 PM MMD UNIT TEACHER COVID-19 04/18/2023 04/18/2023 05/08/2023 1:16 AM MMD UNIT TEACHER R/O C. diff 09/04/2023 09/04/2023 09/04/2023 11:4 7 PM CDT R/O COVID-19 09/04/2023 09/04/2023 09/04/2023 6:46 PM CDT R/O COVID-19 11/11/2023 11/11/2023 11/11/2023 1:08 PM CDT Assessment Noted Time PHQ-9 Depression Total Score: 1 12/14/19 11:24 AM CDT documented as of this encounter Care Teams Gantry Crane Operator Relationship Specialty Start Date End Date Sánchez Macario MD [address] [phone] PCP - General Family Practice 04/10/21 documented as of this encounter
--- OUTSIDE RECORDS SUMMARY | 2025-02-07 05:00 | XMS_ITS | Encounter Summary ---
Author Organization [facility] Address [address] [place] [address] Care Team Providers Care Gliding Pilot Instructor Name Role Phone Fabiola Soto MD Primary Care Provider +1 [phone] Encounter Details Date Type Department Care Team (Late st Contact Info) Description 09/18/[address] [facility] General Laboratory Services [place] [address] [place] [address] Social History Tobacco Use Types Packs/Day Years Used Date Smoking Tobacco: Never Smokeless Tobacco: Never Alcohol Use Standard Drinks/Week Comments No 0 (1 standard drink = 0.6 oz pur e alcohol) Comments No Sex and Gender Information Value Date Recorded Sex Assigned at Not on file Legal Sex Female 5:07 AM MUNICIPAL FIREFIGHTER Gender Identity Not on file Sexual Orientation [...] - 170 ug/dL 09/18/2013 5:21 PM CDT [facility] [employer] [facility] Blood Collection / Unknown 09/18/2013 12:03 PM CDT 09/18/2013 12:03 PM CDT External Provider Mtnv CHEMISTRY ORDERABLES Jihan l Result Performing Organization Address [facility] [[email or web address]] Co de Phone Number [facility] [employer] [facility] CLIA # [id number] [address] [place] [address] * CREATININE (09/18/2013 12:03 PM CDT) Pathologist [facility] CREATININE 1.10 0.60 - 1.30 mg/dL 09/18/2013 1:41 PM CDT [facility] [employer] [facility] GFR 49 mL/min/1.7 3 sq meter 09/18/2013 1:41 PM CDT [facility] [employer] [facility] Comment: The GFR result is not clinically significant on patients <18 or >70 years of age. GFR, 59 mL/min/1.7 3 sq meter 09/18/2013 1:41 PM CDT [facility] [employer] [facility] Blood Collection / Unknown 09/18/2013 12:03 PM CDT 09/18/2013 12:03 PM CDT us External Provider Mtnv CHEMISTRY ORDERABLES Jihan l Result Performing Organization Address City/[facility]/ZIP Co de Phone Number [facility] [[email or web address]] CLIA # [id number] [address] [place] [phone] * (ABNORMAL) ALT (09/18/2013 12:03 PM CDT) ALT 20(L) 30 - 65 U/L 09/18/2013 1:41 PM CDT [facility] [employer] [facility] [place] Blood Collection / Unknown 09/18/2013 12:03 PM CDT 09/18/2013 12:03 PM CDT us External Provider Mtnv CHEMISTRY ORDERABLES Jihan priya Result [facility] [place] CLIA # [id number] 100 [facility] [address] [place] [address] * (ABNORMAL) CBC WITH DIFFERENTIAL (09/18/2013 12:03 PM CDT) WBC 5.7 4.0 - 10.0 K/uL 09/18/2013 12:21 PM CDT [facility] [place] RBC 4.44 3.93 - 5.22 M/uL 09/18/2013 12:21 PM CDT [facility] [place] HEMOGLOBIN 13.6 11.2 - 15.7 g/dL 09/18/2013 12:21 PM CDT [facility] [place] HEMATOCRIT 41.5 34.1 - 44.9 % 09/18/2013 12:21 PM CDT [facility] [place] MCV 93.5 79.4 - 94.8 fL 09/18/2013 12:21 PM CDT [facility] [place] MCH 30.6 25.6 - 32.2 pg 09/18/2013 12:21 PM CDT [facility] [place] MCHC 32.8 32.2 - 35.5 g/dL 09/18/2013 12:21 PM CDT [facility] [place] RDW 13.4 11.0 - 14.5 % 09/18/2013 12:21 PM CDT [employer] [facility] [place] RDW-STDEV 44.1 36.9 - 56.9 fL 09/18/2013 12:21 PM CDT [facility] [place] PLATELETS 242 163 - 337 K/uL 09/18/2013 12:21 PM CDT [employer] [facility] [place] MPV 12.2 10.0 - 14.8 fL 09/18/2013 12:21 PM CDT [employer] [facility] [place] NEUTROPHILS 63 34 - 71 % 09/18/2013 12:21 PM CDT [facility] [place] LYMPHOCYTES 21 19 - 52 % 09/18/2013 12:21 PM CDT [facility] [place] MONOCYTES 10 5 - 13 % 09/18/2013 12:21 PM CDT [facility] [place] EOSINOPHILS 4 1 - 6 % 09/18/2013 12:21 PM CDT [facility] [place] BASOPHILS 1 0 - 1 % 09/18/2013 12:21 PM CDT [facility] [place] NEUTROPHIL ABSOLUTE 3.63 1.56 - 6.13 K/uL 09/18/2013 12:21 PM CDT [facility] [place] LYMPHOCYTE ABSOLUTE 1.21 1.20 - 3.40 K/uL 09/18/2013 12:21 PM CDT [facility] [place] MONOCYTE ABSOLUTE 0.59(H) 0.24 - 0.36 K/uL 09/18/2013 12:21 PM CDT [facility] [place] EOSINOPHIL ABSOLUTE 0.22 0.04 - 0.36 K/uL 09/18/2013 12:21 PM CDT [facility] [place] BASOPHILS ABSOLUTE 0.08 0.01 - 0.08 K/uL 09/18/2013 12:21 PM CDT [facility] [place] IMMATURE GRANULOCYTES 0 % 09/18/2013 12:21 PM CDT [facility] [place] IMMATURE GRANULOCYTES ABSOLUTE 0.00 K/uL 09/18/2013 12:21 PM CDT [facility] [place] Blood Collection / Unknown 09/18/2013 12:03 PM CDT 09/18/2013 12:03 PM CDT us External Provider Mtnv HEMATOLOGY ORDERABLES Fin al Result [facility] [place] CLIA # [id number] [address] [place] [address] * (ABNORMAL) TSH (09/18/2013 12:03 PM CDT) TSH 4.94(H) 0.30 - 4.80 uIU/mL 09/18/2013 1:41 PM CDT [facility] [place] Blood Collection / Unknown 09/18/2013 12:03 PM CDT 09/18/2013 12:03 PM CDT us External Provider [employer] CHEMISTRY ORDERABLES Jihan l Result Performing Organization Address City/[facility]/ZIP Co de Phone Number [facility] [employer] [facility] CLIA # [id number] [address] [place] [address] * HEMOGLOBIN A1C (09/18/2013 12:03 PM CDT) HEMOGLOBIN A1C 5.7 4.5 - 6.2 % 09/18/2013 1:01 PM CDT [facility] [employer] [facility] EST. AVG GLUCOSE, A1C 117 mg/dL 09/18/2013 1:01 PM CDT [facility] [employer] [facility] Blood Collection / Unknown 09/18/2013 12:03 PM CDT 09/18/2013 12:03 PM CDT External Provider Conv CHEMISTRY ORDERABLES Jihan l Result Performing Organization Address [facility] [[email or web address]] Co de Phone Number [facility] [employer] [facility] CLIA # [id number] [address] [place] [phone] * (ABNORMAL) LIPID PANEL (09/18/2013 12:03 PM CDT) CHOLESTEROL 235(H) 130 - 200 mg/dL 09/18/2013 1:41 PM CDT [facility] TRIGLYCERIDE 121 30 - 200 mg/dL 09/18/2013 1:41 PM CDT [facility] HDL 51 35 - 80 mg/dL 09/18/2013 1:41 PM CDT [facility] [employer] [facility] LDL CALCULATED 160(H) 0 - 100 mg/dL 09/18/2013 1:41 PM CDT [facility] [employer] [facility] Blood Collection / Unknown 09/18/2013 12:03 PM CDT 09/18/2013 12:03 PM CDT Narrative [facility] [employer] [facility] - 09/18/2013 1:41 PM [...] Jihan l Result [facility] CLIA # [id number] [address] [address] documented in this encounter Visit Diagnoses Not on filedocumented in this encounter Additional Health Concerns Infection Onset Date Last Indicated Resolved Time R/O C. diff 10/16/2020 10/16/2020 10/16/2020 11:1 0 AM CDT documented as of this encounter Care Teams Gliding Pilot Instructor Relationship Specialty Start Date End Date Fabiola Soto MD [address] [phone] PCP - General Family Practice 05/27/13 documented as of this encounter
--- OUTSIDE RECORDS SUMMARY | 2025-02-07 05:00 | XMS_ITS | Encounter Summary ---
Author Organization [facility] Address [address] [place] [address] Care Team Providers Care Final Finisher Name Role Phone Sánchez Macario MD Primary Care Provider [phone] [phone] Encounter Details Date Type Department Care Team [...] often do you attend chur ch or cheondoism services? Never 01/05/2020 Do you belong to any clubs o r organizations such as congregation groups, unions, fraternal or athletic groups, or [...] on file Legal Sex Female 9:22 AM POWER PLANT INSPECTOR Gender Identity Not on file Sexual Orientation Not on file COVID-19 Exposure Response Date Recorded In the last month, have you been in contact with someone who was confirmed or suspected to have Coronavirus / COVID-19? Yes 05/18/2021 1:41 PM POWER PLANT INSPECTOR documented as of this encounter Plan of Treatment Upcoming Encounters Date Type Department Care Team (Late st Contact Info) Description 02/10/2025 11:30 AM CDT Appointment [facility] Echo [address] [place] [phone] Gallito Lance MD [address] [facility] [address] [place] [phone] 02/10/2025 1:00 PM CDT Office Visit [facility] [address] [facility] [address] [place] [phone] Sarita Oro, [facility] [address] [facility] [address] [place] [phone] 04/29/2025 4:00 PM POWER PLANT INSPECTOR Office Visit [facility] Family Medicine [place] [address] [phone] Sánchez Macario MD [address] [phone] documented as of this encounter Visit Diagnoses Not on filedocumented in this encounter Additional Health Concerns Infection Onset Date Last Indicated Resolved Time COVID-19 05/11/2021 05/11/2021 05/31/2021 2:22 AM POWER PLANT INSPECTOR R/O Respiratory 06/07/2021 06/07/2021 06/07/2021 1 0:14 PM POWER PLANT INSPECTOR COVID-19 04/18/2023 04/18/2023 05/08/2023 1:16 AM POWER PLANT INSPECTOR R/O C. diff 09/04/2023 09/04/2023 09/04/2023 11:4 7 PM CDT R/O COVID-19 09/04/2023 09/04/2023 09/04/2023 6:46 PM CDT R/O COVID-19 11/11/2023 11/11/2023 11/11/2023 1:08 PM CDT Assessment Noted Time PHQ-9 Depression Total Score: 1 12/14/19 11:24 AM CDT documented as of this encounter Care Teams Final Finisher Relationship Specialty Start Date End Date Sánchez Macario MD [address] [phone] PCP - General Family Practice 04/10/21 documented as of this encounter
--- OUTSIDE RECORDS SUMMARY | 2025-02-07 05:00 | XMS_ITS | Encounter Summary ---
Author Organization [facility] Address [address] [place] [address] Care Team Providers Care Bellhop Captain Name Role Phone Sánchez Macario MD Primary Care Provider [phone] [phone] Encounter Details Date Type Department Care Team [...] any clubs o r organizations such as mormon groups, unions, fraternal or athletic groups, or [...] on file Legal Sex Female 9:22 AM PANEL LAY UP WORKER Gender Identity Not on file Sexual Orientation Not on file COVID-19 Exposure Response Date Recorded In the last month, have you been in contact with someone who was confirmed or suspected to have Coronavirus / COVID-19? Yes 05/18/2021 1:41 PM PANEL LAY UP WORKER documented as of this encounter Plan of Treatment Upcoming Encounters Date Type Department Care Team (Late st Contact Info) Description 02/10/2025 11:30 AM CDT Appointment [facility] Echo [address] [place] [phone] Gallito Lance MD [address] [facility] [address] [place] [phone] 02/10/2025 1:00 PM CDT Office Visit [facility] [address] [facility] [address] [place] [phone] Sarita Oro, [facility] [address] [facility] [address] [place] [phone] 04/29/2025 4:00 PM PANEL LAY UP WORKER Office Visit [facility] Family Medicine [place] [address] [phone] Sánchez Macario MD [address] [phone] documented as of this encounter Visit Diagnoses Not on filedocumented in this encounter Additional Health Concerns Infection Onset Date Last Indicated Resolved Time COVID-19 05/11/2021 05/11/2021 05/31/2021 2:22 AM PANEL LAY UP WORKER R/O Respiratory 06/07/2021 06/07/2021 06/07/2021 1 0:14 PM PANEL LAY UP WORKER COVID-19 04/18/2023 04/18/2023 05/08/2023 1:16 AM PANEL LAY UP WORKER R/O C. diff 09/04/2023 09/04/2023 09/04/2023 11:4 7 PM CDT R/O COVID-19 09/04/2023 09/04/2023 09/04/2023 6:46 PM CDT R/O COVID-19 11/11/2023 11/11/2023 11/11/2023 1:08 PM CDT Assessment Noted Time PHQ-9 Depression Total Score: 1 12/14/19 11:24 AM CDT documented as of this encounter Care Teams Bellhop Captain Relationship Specialty Start Date End Date Sánchez Macario MD [address] [phone] PCP - General Family Practice 04/10/21 documented as of this encounter
--- OUTSIDE RECORDS SUMMARY | 2025-02-07 05:00 | XMS_ITS | Encounter Summary ---
Author Organization [facility] Address [address] [place] [address] Care Team Providers Care Furniture Finisher Name Role Phone Sánchez Macario MD Primary Care Provider [phone] [phone] Encounter Details Date Type Department Care Team [...] often do you attend chur ch or baptism services? Never 01/05/2020 Do you belong to any clubs o r organizations such as quaker groups, unions, fraternal or athletic groups, or [...] on file Legal Sex Female 9:22 AM FOREST PATHOLOGY PROFESSOR Gender Identity Not on file Sexual Orientation Not on file COVID-19 Exposure Response Date Recorded In the last month, have you been in contact with someone who was confirmed or suspected to have Coronavirus / COVID-19? Yes 05/18/2021 1:41 PM FOREST PATHOLOGY PROFESSOR documented as of this encounter Plan of Treatment Upcoming Encounters Date Type Department Care Team (Late st Contact Info) Description 02/10/2025 11:30 AM CDT Appointment [facility] Echo [address] [place] [phone] Gallito Lance MD [address] [facility] [address] [place] [phone] 02/10/2025 1:00 PM CDT [facility] Visit [facility] [address] [facility] [address] [place] [phone] Sarita Oro, [facility] [address] [facility] [address] [place] [phone] 04/29/2025 4:00 PM FOREST PATHOLOGY PROFESSOR Office Visit [facility] Family Medicine [place] [address] [phone] Sánchez Macario MD [address] [phone] documented as of this encounter Visit Diagnoses Not on filedocumented in this encounter Additional Health Concerns Infection Onset Date Last Indicated Resolved Time COVID-19 05/11/2021 05/11/2021 05/31/2021 2:22 AM FOREST PATHOLOGY PROFESSOR R/O Respiratory 06/07/2021 06/07/2021 06/07/2021 1 0:14 PM FOREST PATHOLOGY PROFESSOR COVID-19 04/18/2023 04/18/2023 05/08/2023 1:16 AM FOREST PATHOLOGY PROFESSOR R/O C. diff 09/04/2023 09/04/2023 09/04/2023 11:4 7 PM CDT R/O COVID-19 09/04/2023 09/04/2023 09/04/2023 6:46 PM CDT R/O COVID-19 11/11/2023 11/11/2023 11/11/2023 1:08 PM CDT Assessment Noted Time PHQ-9 Depression Total Score: 1 12/14/19 11:24 AM CDT documented as of this encounter Care Teams Furniture Finisher Relationship Specialty Start Date End Date Sánchez Macario MD [address] [phone] PCP - General Family Practice 04/10/21 documented as of this encounter
--- OUTSIDE RECORDS SUMMARY | 2025-02-07 05:00 | XMS_ITS | Encounter Summary ---
Author Organization [facility] Address [address] [place] [address] Care Team Providers Care Stock Clipper Name Role Phone Sánchez Macario MD Primary Care Provider [phone] [phone] Encounter Details Date Type Department Care Team [...] often do you attend chur ch or restoration services? Never 01/05/2020 Do you belong to any clubs o r organizations such as jehovah's witness groups, unions, fraternal or athletic groups, or [...] on file Legal Sex Female 9:22 AM ONLINE MARKETING STRATEGIST Gender Identity Not on file Sexual Orientation Not on file COVID-19 Exposure Response Date Recorded In the last month, have you been in contact with someone who was confirmed or suspected to have Coronavirus / COVID-19? Yes 05/18/2021 1:41 PM ONLINE MARKETING STRATEGIST documented as of this encounter Plan of Treatment Upcoming Encounters Date Type Department Care Team (Late st Contact Info) Description 02/10/2025 11:30 AM CDT Appointment [facility] Echo [address] [place] [phone] Gallito Lance MD [address] [facility] [address] [place] [phone] 02/10/2025 1:00 PM CDT Office Visit [facility] [address] [facility] [address] [place] [phone] Sarita Oro, [facility] [address] [facility] [address] [place] [phone] 04/29/2025 4:00 PM ONLINE MARKETING STRATEGIST Office Visit [facility] Family Medicine [place] [address] [phone] Sánchez Macario MD [address] [phone] documented as of this encounter Visit Diagnoses Not on filedocumented in this encounter Additional Health Concerns Infection Onset Date Last Indicated Resolved Time COVID-19 05/11/2021 05/11/2021 05/31/2021 2:22 AM ONLINE MARKETING STRATEGIST R/O Respiratory 06/07/2021 06/07/2021 06/07/2021 1 0:14 PM ONLINE MARKETING STRATEGIST COVID-19 04/18/2023 04/18/2023 05/08/2023 1:16 AM ONLINE MARKETING STRATEGIST R/O C. diff 09/04/2023 09/04/2023 09/04/2023 11:4 7 PM CDT R/O COVID-19 09/04/2023 09/04/2023 09/04/2023 6:46 PM CDT R/O COVID-19 11/11/2023 11/11/2023 11/11/2023 1:08 PM CDT Assessment Noted Time PHQ-9 Depression Total Score: 1 12/14/19 11:24 AM CDT documented as of this encounter Care Teams Stock Clipper Relationship Specialty Start Date End Date Sánchez Macario MD [address] [phone] PCP - General Family Practice 04/10/21 documented as of this encounter
--- OUTSIDE RECORDS SUMMARY | 2025-02-07 05:00 | XMS_ITS | Clinical Summary ---
Author Organization [facility] Address [address] [place] [address] [address] [place] [address] Care Team Providers Care Workers Compensation Claims Supervisor Name Role Phone Fabiola Soto MD Primary Care Provider +1- [phone] Allergies Active Allergy Reactions Criticality Noted Date [...] lower extremity,Posto perative pulmonary embolism, subsequent encounter ([facility]) Bath step for entrance to [...] Master's degree (e.g., MA, MS, Omid, MEd, ACTUARIAL INTERNSHIP, TYSHAWN) 01/05/2020 Comments No Sex and Gender Information Value Date Recorded Sex Assigned at Not on file Legal Sex Female 5:07 AM PAPER PATTERN INSPECTOR Gender Identity Not on file Sexual [...] - 1-dose 75+ series) 07/09/2015 Medicare [place] ([place]) Preventative Visit/Annual Wellness Visit 04/21/2024 01/05/2020, 12/23/2018, 10/03/2017, Additional history exists INFLUENZA VACCINE (#1) 2024 0, 03/11/2019, 06/03/2016 OSTEOPOROSIS SCREENING 11/09/2028 4, 01/06/2019, 02/03/2014, Additional history exists ZOSTER VACCINE Completed 12/18/2018, 08/03/2018 PNEUMOCOCCAL VACCINE 50+ YEARS Completed 0 07/06/2024, 09/05/2014, 09/07/2005 Procedures Procedure Name Priority Date/Time Associated Diagnosis [...] clinical management available online at www.shef.ac.uk/[email or web address] Enter [email or web address]com for Select DXA and the Femoral Neck [...] clinical management available online at www.shef.ac.uk/[email or web address] Enter [email or web address][employer][email or web address] for Select DXA and the Femoral Neck BMD value. us [facility] ORDERABLES Final Result from Last 3 Months or Most Recently Relevant to Health Maintenance Insurance [place] BCBS M[place] Advance Directives For more information, please contact: [phone] Documents on File Type Date Recorded Patient Developmental Training Counselor Expl anation Advance Directive POA 06/17/2016 12:15 PM Advance Directive POA Care Teams Workers Compensation Claims Supervisor Relationship Specialty Start Date End Date Fabiola Soto MD [address] [phone] PCP - General Family Practice 05/27/13
--- OUTSIDE RECORDS SUMMARY | 2025-02-07 05:00 | XMS_ITS | Encounter Summary ---
Author Organization [facility] Address [address] [place] [address] Care Team Providers Care County Engineer Name Role Phone Fabiola Soto MD Primary Care Provider [phone]- [phone] Encounter Details Date Type Department Care Team (Late st Contact Info) Description 04/22/2006 Outpatient Historical [facility] [address] [place] [address] AMBULANCE, [facility] Headache (Primary Dx) Social History Tobacco Use Types Packs/Day Years Used Date Smoking Tobacco: Never Assessed Comments Unknown Sex and Gender Information Value Date Recorded Sex Assigned at Not on file Legal Sex Female 5:07 AM HUMAN SERVICES INSTRUCTOR Gender Identity Not on file Sexual Orientation Not on file documented as of this encounter Plan of Treatment Not on file documented as of this encounter Visit Diagnoses Diagnosis Headache(784.0)- Primary Headache documented in this encounter Additional Health Concerns Infection Onset Date Last Indicated Resolved Time R/O C. diff 10/16/2020 10/16/2020 10/16/2020 11:1 0 AM CDT documented as of this encounter Care Teams County Engineer Relationship Specialty Start Date End Date Fabiola Soto MD [address] [facility] [address] [place] [phone] PCP - General Family Practice 05/27/13 documented as of this encounter
--- OUTSIDE RECORDS SUMMARY | 2025-02-07 05:00 | XMS_ITS | Encounter Summary ---
Author Organization [email or web address] Address [address] [place] [address] Care Team Providers Care Refrigeration Engineering Teacher Name Role Phone Sánchez Macario MD Primary Care Provider +1 -[phone] Encounter Details Date Type Department Care Team [...] often do you attend chur ch or amish services? Never 01/05/2020 Do you belong to [...] on file Legal Sex Female 9:22 AM CENTER SPECIALISTS Gender Identity Not on file Sexual Orientation Not on file COVID-19 Exposure Response Date Recorded In the last month, have you been in contact with someone who was confirmed or suspected to have Coronavirus / COVID-19? No / Unsure 05/11/2021 10:11 AM CENTER SPECIALISTS documented as of this encounter Plan of Treatment Upcoming Encounters Date Type Department Care Team (Late st Contact Info) Description 02/10/2025 11:30 AM CDT Appointment [facility] [address] [place] [address] Gallito Lance MD [address] [facility] [address] [place] [phone] 02/10/2025 1:00 PM CDT Office Visit [facility] [address] [facility] [address] [place] [phone] Sarita Oro, [facility] [address] [facility] [address] [place] [phone] 04/29/2025 4:00 PM CENTER SPECIALISTS Office Visit [facility] Family Medicine [place] [address] [phone] Sánchez Macario MD [address] [phone] documented as of this encounter Visit Diagnoses Not on filedocumented in this encounter Additional Health Concerns Infection Onset Date Last Indicated Resolved Time COVID-19 05/11/2021 05/11/2021 05/31/2021 2:22 AM [facility] R/O Respiratory 06/07/2021 06/07/2021 06/07/2021 1 0:14 PM [facility]ENTER [facility] COVID-19 04/18/2023 04/18/2023 05/08/2023 1:16 AM [facility] R/O C. diff 09/04/2023 09/04/2023 09/04/2023 11:4 7 PM CDT R/O COVID-19 09/04/2023 09/04/2023 09/04/2023 6:46 PM CDT R/O COVID-19 11/11/2023 11/11/2023 11/11/2023 1:08 PM CDT Assessment Noted Time PHQ-9 Depression Total Score: 1 12/14/19 21 11:24 AM CDT documented as of this encounter Care Teams Refrigeration Engineering Teacher Relationship Specialty Start Date End Date Sánchez Macario MD [address] [phone] PCP - General Family Practice 04/10/21 documented as of this encounter
--- OUTSIDE RECORDS SUMMARY | 2025-02-07 05:00 | XMS_ITS | Encounter Summary ---
Author Organization [facility] Address [address] [place] [address] Care Team Providers Care Rainbow Trout Farm Manager Name Role Phone Sánchez Macario MD Primary Care Provider [phone] -[phone] Encounter Details Date Type Department Care Team [...] on file Legal Sex Female 9:22 AM WEB PRODUCTION ASSISTANT Gender Identity Not on file Sexual Orientation Not on file COVID-19 Exposure Response Date Recorded In the last month, have you been in contact with someone who was confirmed or suspected to have Coronavirus / COVID-19? Yes 05/18/2021 1:41 PM WEB PRODUCTION ASSISTANT documented as of this encounter Plan of Treatment Upcoming Encounters Date Type Department Care Team (Late st Contact Info) Description 02/10/2025 11:30 AM CDT Appointment [facility] Echo [address] [place] [phone] Gallito Lance MD [address] [facility] [place] [facility] [address] [place] [phone] 02/10/2025 1:00 PM CDT Office Visit [facility] [address] [facility] [place] [facility] [address] [place] [phone] Sarita Oro, [facility] [address] [facility] [place] [facility] [address] [place] [phone] 04/29/2025 4:00 PM WEB PRODUCTION ASSISTANT Office Visit [facility] Family Medicine [place] [address] [phone] Sánchez Macario MD [address] [phone] documented as of this encounter Visit Diagnoses Not on filedocumented in this encounter Additional Health Concerns Infection Onset Date Last Indicated Resolved Time COVID-19 05/11/2021 05/11/2021 05/31/2021 2:22 AM WEB PRODUCTION ASSISTANT R/O Respiratory 06/07/2021 06/07/2021 06/07/2021 1 0:14 PM WEB PRODUCTION ASSISTANT COVID-19 04/18/2023 04/18/2023 05/08/2023 1:16 AM WEB PRODUCTION ASSISTANT R/O C. diff 09/04/2023 09/04/2023 09/04/2023 11:4 7 PM CDT R/O COVID-19 09/04/2023 09/04/2023 09/04/2023 6:46 PM CDT R/O COVID-19 11/11/2023 11/11/2023 11/11/2023 1:08 PM CDT Assessment Noted Time PHQ-9 Depression Total Score: 1 12/14/19 11:24 AM CDT documented as of this encounter Care Teams Rainbow Trout Farm Manager Relationship Specialty Start Date End Date Sánchez Macario MD [address] [phone] PCP - General Family Practice 04/10/21 documented as of this encounter
--- OUTSIDE RECORDS SUMMARY | 2025-02-07 05:00 | XMS_ITS ---
Author Organization [facility] Address [address] [place] [address] [address] [place] [address] Care Team Providers Care Hotel Security Officer Name Role Phone Sánchez Macario MD Primary Care Provider +1 -[phone] Active Problems Problem Noted Date Diagnosed Date [...] from 03/27/2024:Stage IIIB(cT3, cN0, cM0, G3, ER-, WA-, HER2-) - Signed by Vale Palacios DO on 03/27/2024 Pathologic stage from 06/08/2024:Stage IIIA(pT3, pN0(sn), cM0, G3, ER-, WA-, HER2-) - Signed by Cirstina Soto MD on 06/08/2024 Pulmonary nodules 10/20/2023 [...]
--- OUTSIDE RECORDS SUMMARY | 2025-02-07 05:00 | XMS_ITS | Encounter Summary ---
Author Organization [facility] Address [address] [place] [address] Care Team Providers Care Marble Coper Name Role Phone Sánchez Macario MD Primary Care Provider +1 [phone] Encounter Details Date Type Department Care Team [...] on file Legal Sex Female 9:22 AM KENNEL HAND Gender Identity Not on file Sexual Orientation Not on file COVID-19 Exposure Response Date Recorded In the last month, have you been in contact with someone who was confirmed or suspected to have Coronavirus / COVID-19? Yes 05/18/2021 1:41 PM KENNEL HAND documented as of this encounter Plan of Treatment Upcoming Encounters Date Type Department Care Team (Late st Contact Info) Description 02/10/2025 11:30 AM CDT Appointment [facility] Echo [address] [place] [phone] Gallito Lance MD [address] [facility] [address] [place] [phone] 02/10/2025 1:00 PM CDT Office Visit [facility] [address] [facility] [address] [place] [phone] Sarita Oro, [facility] [address] [facility] [address] [place] [phone] 04/29/2025 4:00 PM KENNEL HAND Office Visit [facility] Family Medicine [place] [address] [phone] Sánchez Macario MD [address] [phone] documented as of this encounter Visit Diagnoses Not on filedocumented in this encounter Additional Health Concerns Infection Onset Date Last Indicated Resolved Time COVID-19 05/11/2021 05/11/2021 05/31/2021 2:22 AM KENNEL HAND R/O Respiratory 06/07/2021 06/07/2021 06/07/2021 1 0:14 PM KENNEL HAND COVID-19 04/18/2023 04/18/2023 05/08/2023 1:16 AM KENNEL HAND R/O C. diff 09/04/2023 09/04/2023 09/04/2023 11:4 7 PM CDT R/O COVID-19 09/04/2023 09/04/2023 09/04/2023 6:46 PM CDT R/O COVID-19 11/11/2023 11/11/2023 11/11/2023 1:08 PM CDT Assessment Noted Time PHQ-9 Depression Total Score: 1 12/14/19 11:24 AM CDT documented as of this encounter Care Teams Marble Coper Relationship Specialty Start Date End Date Sánchez Macario MD [address] [phone] PCP - General Family Practice 04/10/21 documented as of this encounter
--- OUTSIDE RECORDS SUMMARY | 2025-02-07 05:00 | XMS_ITS | Encounter Summary ---
Author Organization [facility] Address [address] [place] [address] Care Team Providers Care Glove Parts Cutter Name Role Phone Fabiola Soto MD Primary Care Provider +1- [phone] Encounter Details Date Type Department Care Team (Late st Contact Info) Description 09/07/2011 Ancillary Orders [facility] General Laboratory Services [place] [address] [place] [address] Social History Tobacco Use Types Packs/Day Years Used Date Smoking Tobacco: Never Smokeless Tobacco: Never Alcohol Use Standard Drinks/Week Comments Yes 4.2 (1 standard drink = 0.6 oz p ure alcohol) month Comments No Sex and Gender Information Value Date Recorded Sex Assigned at Not on file Legal Sex Female 5:07 AM AUTOMOBILE MECHANIC Gender Identity Not on file Sexual Orientation [...] - 10.0 K/uL 09/07/2011 3:07 PM CDT [facility] [place] RBC 4.32 3.93 - 5.22 M/uL 09/07/2011 3:07 PM CDT [employer] [facility] [place] HEMOGLOBIN 13.3 11.2 - 15.7 g/dL 09/07/2011 3:07 PM CDT [facility] [place] HEMATOCRIT 40.3 34.1 - 44.9 % 09/07/2011 3:07 PM CDT [employer] [facility] [place] MCV 93.3 79.4 - 94.8 fL 09/07/2011 3:07 PM CDT [facility] [place] MCH 30.8 25.6 - 32.2 pg 09/07/2011 3:07 PM CDT [facility] [place] MCHC 33.0 32.2 - 35.5 g/dL 09/07/2011 3:07 PM CDT [facility] [place] RDW 13.8 11.0 - 14.5 % 09/07/2011 3:07 PM CDT [facility] [place] RDW-STDEV 46.0 fL 09/07/2011 3:07 PM CDT [employer] [facility] [place] PLATELETS 227 163 - 337 K/uL 09/07/2011 3:07 PM CDT [facility] [place] MPV 12.1 10.0 - 14.8 fL 09/07/2011 3:07 PM CDT [facility] [place] NEUTROPHILS 70 34 - 71 % 09/07/2011 3:07 PM CDT [facility] [place] LYMPHOCYTES 17(L) 19 - 52 % 09/07/2011 3:07 PM CDT [employer] [facility] [place] MONOCYTES 9 5 - 13 % 09/07/2011 3:07 PM CDT [employer] [facility] [place] EOSINOPHILS 5 1 - 6 % 09/07/2011 3:07 PM CDT [employer] [facility] [place] BASOPHILS 1 0 - 1 % 09/07/2011 3:07 PM CDT [facility] [place] NEUTROPHIL ABSOLUTE 4.38 1.56 - 6.13 K/uL 09/07/2011 3:07 PM CDT [facility] [place] LYMPHOCYTE ABSOLUTE 1.05(L) 1.20 - 3.40 K/uL 09/07/2011 3:07 PM CDT [facility] [place] MONOCYTE ABSOLUTE 0.54(H) 0.24 - 0.36 K/uL 09/07/2011 3:07 PM CDT [facility] [place] EOSINOPHIL ABSOLUTE 0.29 0.04 - 0.36 K/uL 09/07/2011 3:07 PM CDT [facility] [place] BASOPHILS ABSOLUTE 0.03 0.01 - 0.08 K/uL 09/07/2011 3:07 PM CDT [facility] Blood specimen (specimen) 09/07/2011 8:10 AM CDT 09/07/2011 9:21 AM CDT Phillyrupesh Sotomayorray PRODUCT DEVELOPMENT TECHNICIAN HEMATOLOGY ORDERA BLES Final Result [facility] CLIA # [id number] [address] [place] [phone] * (ABNORMAL) COMPREHENSIVE METABOLIC PANEL (09/07/2011 8:10 AM CDT) SODIUM 141 136 - 145 mmol/L 09/07/2011 5:18 PM CDT [facility] POTASSIUM 3.8 3.5 - 5.1 mmol/L 09/07/2011 5:18 PM CDT [facility] CHLORIDE 106 98 - 107 mmol/L 09/07/2011 5:18 PM CDT [facility] CO2 25 21 - 32 mmol/L 09/07/2011 5:18 PM CDT [facility] CALCIUM 9.1 8.5 - 10.1 mg/dL 09/07/2011 5:18 PM CDT [facility] [place] BUN 17 7 - 18 mg/dL 09/07/2011 5:18 PM CDT [facility] [place] CREATININE 0.80 0.60 - 1.30 mg/dL 09/07/2011 5:18 PM CDT [facility] [place] [place] GLUCOSE 74 74 - 106 mg/dL 09/07/2011 5:18 PM CDT [facility] TOTAL PROTEIN 6.6 6.4 - 8.2 g/dL 09/07/2011 5:18 PM CDT [facility] ALBUMIN 3.3(L) 3.4 - 5.0 g/dL 09/07/2011 5:18 PM CDT [facility] BILIRUBIN TOTAL 0.3 0.2 - 1.0 mg/dL 09/07/2011 5:18 PM CDT [facility] ALKALINE PHOSPHATASE 110 50 - 136 U/L 09/07/2011 5:18 PM T [facility] AST 15 15 - 37 U/L 09/07/2011 5:18 PM CDT [facility] ALT 32 30 - 65 U/L 09/07/2011 5:18 PM CDT [facility] GFR 71 >=60 mL/min/1.7 3 sq meter 09/07/2011 5:18 PM T [facility] GFR, 86 >=60 mL/min/1.7 3 sq meter 09/07/2011 5:18 PM T [facility] Blood specimen (specimen) 09/07/2011 8:10 AM CDT 09/07/2011 9:21 AM CDT Narrative [facility] - 09/07/2011 5:18 PM CDT eGFR [...] Darling APRN CHEMISTRY ORDERAB LES Final Result [facility] CLIA # [id number] [address] [facility] [address] [place] [address] * (ABNORMAL) LIPID PANEL (09/07/2011 8:10 AM CDT) [facility] Signature CHOLESTEROL 204(H) 130 - 200 mg/dL 09/07/2011 5:18 PM CDT [facility] TRIGLYCERIDE 130 30 - 200 mg/dL 09/07/2011 5:18 PM CDT [facility] HDL 44 35 - 80 mg/dL 09/07/2011 5:18 PM CDT [facility] LDL CALCULATED 134(H) 0 - 100 mg/dL 09/07/2011 5:18 PM CDT [facility] Blood specimen (specimen) 09/07/2011 8:10 AM CDT 09/07/2011 9:21 AM CDT Narrative [facility] - 09/07/2011 5:18 PM CDT TOTAL CHOLESTEROL [...] ORDERAB LES Final Result Performing Organization Address City/[facility]/ZIP Co de Phone Number [facility] CLIA # [id number] [address] [place] [phone] * FERRITIN (09/07/2011 8:10 AM CDT) FERRITIN 81.0 8.0 - 252.0 ng/mL 09/07/2011 6:41 PM CDT [facility] If You Can [facility] Blood specimen (specimen) 09/07/2011 8:10 AM CDT 09/07/2011 9:21 AM CDT [facility] PRODUCT DEVELOPMENT TECHNICIAN CHEMISTRY ORDERAB LES Final Result Performing Organization Address City/[facility]/ZIP Co de Phone Number [facility] CLIA # [id number] [address] [place] [address] * IRON LEVEL (09/07/2011 8:10 AM CDT) IRON 58 50 - 170 ug/dL 09/07/2011 6:41 PM CDT [facility] Blood specimen (specimen) 09/07/2011 8:10 AM CDT 09/07/2011 9:21 AM CDT Philly Darling PRODUCT DEVELOPMENT TECHNICIAN CHEMISTRY ORDERAB LES Final Result [facility] CLIA # [id number] [address] [address] documented in this encounter Visit Diagnoses Not on filedocumented in this encounter Additional Health Concerns Infection Onset Date Last Indicated Resolved Time R/O C. diff 10/16/2020 10/16/2020 10/16/2020 11:1 0 AM CDT documented as of this encounter Care Teams Glove Parts Cutter Relationship Specialty Start Date End Date Fabiola Soto MD [address] [phone] PCP - General Family Practice 05/27/13 documented as of this encounter
--- OUTSIDE RECORDS SUMMARY | 2025-02-07 05:00 | XMS_ITS | Encounter Summary ---
Author Organization [facility] Address [address] [place] [address] Care Team Providers Care Final Block Press Operator Name Role Phone Sánchez Macario MD Primary Care Provider +1 -[phone] Encounter Details Date Type Department Care Team [...] often do you attend chur ch or samaritan services? Never 01/05/2020 Do you belong to any clubs o r organizations such as baptist groups, unions, fraternal or athletic groups, or [...] on file Legal Sex Female 9:22 AM CORE MAN Gender Identity Not on file Sexual Orientation Not on file COVID-19 Exposure Response Date Recorded In the last month, have you been in contact with someone who was confirmed or suspected to have Coronavirus / COVID-19? Yes 05/18/2021 1:41 PM CORE MAN documented as of this encounter Plan of Treatment Upcoming Encounters Date Type Department Care Team (Late st Contact Info) Description 02/10/2025 11:30 AM CDT Appointment [facility] Echo [address] [place] [phone] Gallito Lance MD [address] [facility] [address] [place] [phone] 02/10/2025 1:00 PM CDT Office Visit [facility] [address] [facility] [address] [place] [phone] Sarita Oro, [facility] [address] [facility] [address] [place] [phone] 04/29/2025 4:00 PM CORE MAN Office Visit [facility] Family Medicine [place] [address] [phone] Sánchez Macario MD [address] [phone] documented as of this encounter Visit Diagnoses Not on filedocumented in this encounter Additional Health Concerns Infection Onset Date Last Indicated Resolved Time COVID-19 05/11/2021 05/11/2021 05/31/2021 2:22 AM CORE MAN R/O Respiratory 06/07/2021 06/07/2021 06/07/2021 1 0:14 PM CORE MAN COVID-19 04/18/2023 04/18/2023 05/08/2023 1:16 AM CORE MAN R/O C. diff 09/04/2023 09/04/2023 09/04/2023 11:4 7 PM CDT R/O COVID-19 09/04/2023 09/04/2023 09/04/2023 6:46 PM CDT R/O COVID-19 11/11/2023 11/11/2023 11/11/2023 1:08 PM CDT Assessment Noted Time PHQ-9 Depression Total Score: 1 12/14/19 11:24 AM CDT documented as of this encounter Care Teams Final Block Press Operator Relationship Specialty Start Date End Date Sánchez Macario MD [address] [phone] PCP - General Family Practice 04/10/21 documented as of this encounter
--- OUTSIDE RECORDS SUMMARY | 2025-02-07 05:00 | XMS_ITS | Encounter Summary ---
Author Organization [facility] Address [address] [place] [address] Care Team Providers Care Annealing Furnace Operator Name Role Phone Sánchez Macario MD Primary Care Provider [phone] [phone] Encounter Details Date Type Department Care Team [...] often do you attend chur ch or advent services? Never 01/05/2020 Do you belong to [...] on file Legal Sex Female 9:22 AM PREPARED FOODS TEAM LEADER Gender Identity Not on file Sexual Orientation Not on file COVID-19 Exposure Response Date Recorded In the last month, have you been in contact with someone who was confirmed or suspected to have Coronavirus / COVID-19? Yes 05/18/2021 1:41 PM PREPARED FOODS TEAM LEADER documented as of this encounter Plan of Treatment Upcoming Encounters Date Type Department Care Team (Late st Contact Info) Description 02/10/2025 11:30 AM CDT Appointment [facility] [address] [place] [phone] Gallito Lance MD [address] [facility] [address] [place] [phone] 02/10/2025 1:00 PM CDT Office Visit [facility] [address] [facility] [address] [place] [phone] Sarita Oro, [facility] [address] [facility] [address] [place] [phone] 04/29/2025 4:00 PM PREPARED FOODS TEAM LEADER Office Visit [facility] [place] [address] [phone] Sánchez Macraio MD [address] [phone] documented as of this encounter Visit Diagnoses Not on filedocumented in this encounter Additional Health Concerns Infection Onset Date Last Indicated Resolved Time COVID-19 05/11/2021 05/11/2021 05/31/2021 2:22 AM PREPARED FOODS TEAM LEADER R/O Respiratory 06/07/2021 06/07/2021 06/07/2021 1 0:14 PM PREPARED FOODS TEAM LEADER COVID-19 04/18/2023 04/18/2023 05/08/2023 1:16 AM PREPARED FOODS TEAM LEADER R/O C. diff 09/04/2023 09/04/2023 09/04/2023 11:4 7 PM CDT R/O COVID-19 09/04/2023 09/04/2023 09/04/2023 6:46 PM CDT R/O COVID-19 11/11/2023 11/11/2023 11/11/2023 1:08 PM CDT Assessment Noted Time PHQ-9 Depression Total Score: 1 12/14/19 11:24 AM CDT documented as of this encounter Care Teams Annealing Furnace Operator Relationship Specialty Start Date End Date Sánchez Macario MD [address] [phone] PCP - General Family Practice 04/10/21 documented as of this encounter
--- OUTSIDE RECORDS SUMMARY | 2025-02-07 05:00 | XMS_ITS | Encounter Summary ---
Author Organization [facility] Address [address] [place] [address] Care Team Providers Care Personal Financial Representative Name Role Phone Sánchez Macario MD Primary Care Provider [phone] [phone] Encounter Details Date Type Department Care Team [...] any clubs o r organizations such as baptism groups, unions, fraternal or athletic groups, or [...] on file Legal Sex Female 9:22 AM VISE HAND Gender Identity Not on file Sexual Orientation Not on file COVID-19 Exposure Response Date Recorded In the last month, have you been in contact with someone who was confirmed or suspected to have Coronavirus / COVID-19? Yes 05/18/2021 1:41 PM VISE HAND documented as of this encounter Plan of Treatment Upcoming Encounters Date Type Department Care Team (Late st Contact Info) Description 02/10/2025 11:[address] [facility] Echo [address] [place] [phone] Gallito Lance MD [address] [facility] [address] [place] [phone] 02/10/2025 1:00 PM CDT Office Visit [facility] [address] [facility] [address] [place] [phone] Sarita Oro, [facility] [address] [facility] [address] [place] [phone] 04/29/2025 4:00 PM VISE HAND Office Visit [facility] [place] [address] [phone] Sánchez Macario MD [address] [phone] documented as of this encounter Visit Diagnoses Not on filedocumented in this encounter Additional Health Concerns Infection Onset Date Last Indicated Resolved Time COVID-19 05/11/2021 05/11/2021 05/31/2021 2:22 AM VISE HAND R/O Respiratory 06/07/2021 06/07/2021 06/07/2021 1 0:14 PM VISE HAND COVID-19 04/18/2023 04/18/2023 05/08/2023 1:16 AM VISE HAND R/O C. diff 09/04/2023 09/04/2023 09/04/2023 11:4 7 PM CDT R/O COVID-19 09/04/2023 09/04/2023 09/04/2023 6:46 PM CDT R/O COVID-19 11/11/2023 11/11/2023 11/11/2023 1:08 PM CDT Assessment Noted Time PHQ-9 Depression Total Score: 1 12/14/19 11:24 AM CDT documented as of this encounter Care Teams Personal Financial Representative Relationship Specialty Start Date End Date Sánchez Macario MD [address] [phone] PCP - General Family Practice 04/10/21 documented as of this encounter
--- OUTSIDE RECORDS SUMMARY | 2025-02-07 05:00 | XMS_ITS | Clinical Summary ---
Author Organization [facility] Address [address] [place] [address] [address] [place] [address] Care Team Providers Care C Java Developer Name Role Phone Sánchez Macario MD Primary Care Provider [phone] [phone] Allergies Active Allergy Reactions Criticality Noted Date [...] ORAL Take by mouth 2 times daily. 05/10/19 Active albuterol sulfate (VENTOLIN HFA) 90 mcg/Actuation inhaler INHALE 2 PUFFS BY MOUTH EVERY 6 HOURS NEEDED FOR SHORTNESS OF BREATH 54 Gram 2 01/30/20 20 Active OTHER Pharmapure Sugar Sixto 1 tablet po daily 12/24/19 19 Active cyanocobalamin 1,000 mcg Tablet Take by [...] mg by subcutaneous injection Every twentysix weeks. 04/15/20 18 Active polycarbophil calcium (FIBERCON) 625 mg tablet Take 625 mg by mouth daily. Active docusate sodium (STOOL SOFTENER ORAL) Take 100 mg by mouth daily. Takes 2 in the morning Active Cranberry 400 mg Capsule Take 400 mg by mouth daily. Active OTHERIndications:A cute deep vein thrombosis (DVT) of femoral vein of left lower extremity,Postoper ative pulmonary embolism, subsequent encounter ([facility]) Bath step for entrance to the bath tub. 1 Each 0 06/11/19 17 Active cholecalciferol, Vitamin D3, (VITAMIN D3) 25 mcg (1,000 unit) Capsule daily. 07/05/19 22 Active calcium as carbonate (Calcium 600) 1,500 mg (600 mg elemental) Tablet 1 tablet BEDTIME (route: oral) 07/05/19 22 Active vitamin E 400 unit capsule Take 400 Units by mouth daily. 07/05/19 22 Active cholecalciferol, Vitamin D3, 50 mcg (2,000 unit) Tablet Take by mouth daily. 06/20/19 16 Active lidocaine-prilocai ne (EMLA) 2.5-2.5 % Cream APPLY A QUARTER SIZE TO PORT SITE 30-45 MINUTES PRIOR TO APPOINTMENT. COVER WITH CELLOPHANE 07/21/19 24 Active LORazepam (ATIVAN) 0.5 mg tabletIndications: CARMEL (generalized anxiety disorder) Take 1 Tablet (0.5 mg) by mouth 1 time daily as needed for Anxiety. 30 Tablet 5 10/22/19 24 Active budesonide (PULMICORT RESPULE) 0.5 mg/2 mL Suspension for Nebulization Take 2 mL (0.5 mg) by inhalation 2 times daily. 60 mL 11 01/19/20 24 Active fluticasone propion-salmeteroL (ADVAIR DISKUS,WIXELA INHUB) 250-50 mcg/dose disk inhaler Take 1 Puff by inhalation 2 times daily. 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 10 Tablet 5 2:49 PM DATA MANAGEMENT 06/04/19 25 Active ondansetron (ZOFRAN ODT) 4 mg Tablet, Rapid Dissolve Take 1 Tablet (4 mg) by mouth every 8 hours as needed for Nausea/Emesis. Dissolve tablet on top of tongue, then swallow with saliva. 10 Tablet 1 5 2:49 PM DATA MANAGEMENT 06/04/19 25 Active levothyroxine 137 mcg tabletIndications: Acquired hypothyroidism TAKE 1 TABLET(137 MCG) BY MOUTH DAILY 100 Tablet 2 07/08/19 25 Active apixaban (Eliquis) 5 mg tablet TAKE 1 TABLET(5 MG) BY MOUTH TWICE DAILY 200 Tablet 2 07/09/19 25 Active tiZANidine (ZANAFLEX) 2 mg TabletIndications: Primary osteoarthritis of left knee Take 1 Tablet (2 mg) by mouth every 8 hours as needed for Spasm or Pain. 90 Tablet 1 08/06/19 25 Active potassium CHLORIDE (KLOR-CON) 10 mEq Extended Release tabletIndications: Peripheral edema TAKE 1 TABLET(10 MEQ) BY MOUTH DAILY WITH BREAKFAST 90 Tablet 3 08/18/19 25 Active meclizine (ANTIVERT) 25 mg tablet TAKE 1 TABLET(25 MG) BY MOUTH THREE TIMES DAILY NEEDED FOR DIZZINESS 90 Tablet 2 09/30/19 25 Active FLUoxetine (PROzac) 40 mg capsuleIndications :Seasonal affective disorder TAKE 1 CAPSULE(40 MG) BY MOUTH DAILY 100 Capsule 1 11/27/19 25 Active hydrocortisone (CORTEF) 20 mg tablet TAKE 1 TABLET BY MOUTH ONCE DAILY IN THE MORNING AND 1/2 (ONE-HALF) ONCE DAILY IN THE EVENING 150 Tablet 01/06/20 Active Active Problems Problem Noted Date Diagnosed [...] Encounters Date Type Department Care Team Description 02/01/2025 Orders Only [facility] HIM [address] [place] [address] Provider, Abstract 01/26/2025 Orders Only [facility] Information [facility] [address] [place] [address] Provider, Abstract 01/18/2025 External Device Data STL ABSTRACTION Provider, Abstract 01/17/2025 Abstract [facility] [address] [place] [phone] Provider, Abstract 01/04/[address] [place] [address] Sánchez Macario MD 12/22/2024 External Device Data STL ABSTRACTION Provider, Abstract 12/14/2024 External Device Data STL ABSTRACTION Provider, Abstract 11/26/2024 Refill [facility] [address] [place] [address] Sánchez Macario MD Seasonal affective disorder 11/16/2024 External Device Data STL ABSTRACTION Provider, Abstract 11/08/2024 Orders Only [address] [phone] Provider, Abstract 11/08/[address] [place] [address] Sánchez Macario MD from Last 3 Months Immunizations Immunization Administration Dates Next Due (PREVNAR 20)(6 WKS UP) PNEUM OCOCCAL CONJUGATE VACCINE 20-VALENT (PCV20), POLYSACCHARIDE [id number] CONJUGATE, ADJUVANT 0.5 ML (PF) IM 07/06/2024 [...] degree (e.g., MA, MS, Omid, MEd, SUPERVISOR STAVE CUTTING, TYSHAWN) 06/05/2021 Comments No Sex and Gender Information Value Date Recorded Sex Assigned at Not on file Legal Sex Female 9:22 AM DATA MANAGEMENT Gender Identity Not on file Sexual Orientation [...] Info) Description 02/10/2025 11:30 AM CDT Appointment [facility] Echo [address] [facility] [place] [address] Gallito Lance MD [address] [place] [phone] 02/10/2025 1:00 PM CDT Office Visit [facility] [address] [place] [phone] Sarita Oro, [facility] [address] [place] [phone] 04/29/2025 4:00 PM DATA MANAGEMENT Office Visit [facility] [address] [phone] Sánchez Macario MD [address] [place] [phone] Health Maintenance Due Date Last Done Comments DTAP/TDAP/TD VACCINES (1 - Tdap) 07/09/1959 RSV VACCINE (60+ or ) (1 - 1-dose 75+ series) 07/09/2015 ZOSTER VACCINE (2 of 2) 02/12/2019 12/18/2018, 12/18 [place] ([place]) Preventative Visit/Annual Wellness Visit 04/21/2024 02/04/2024, 09/30/2022, [...] years Discontinued Medical Devices Implanted Type Area Refueling Ramp Attendant Device Identifier Shelf Expiration Date Model / Serial / Lot Clip Ligating Horizon Red [id number] - [facility] [place] - [id number] Implanted:Qty: 1 on 06/03/2024 by Vale Palacios DO at [facility] Clip Left: Breast [employer]LE[employer] [id number] 02/04/2029 / / [id number] Clip Ligating Horizon Med Ti 704560 - Csc - [id number] Implanted:Qty: 1 on 06/03/2024 by Vale Palacios DO at [facility] Clip Left: Breast TELEFLEX- WECK CLOSURE SYS [id number] 02/04/2029 / / [id number] Clip Ligating Horizon Sm 652856 - [id number] Implanted:Qty: 1 on 06/03/2024 by Vale Palacios DO at [facility] Clip Left: Breast TELE[employer]LEX INC [id number] 12/30/2026 [id number] / / [id number] Clip Ligating Horizon Med Ti 479826 - Csc - [id number] Implanted:Qty: 1 on 06/03/2024 by Vale Palacios DO at [facility] Clip Left: Breast TELEFLEX- WECK CLOSURE SYS [id number] 11/23/2028 / / [id number] Clip Ligating Horizon Med Ti 336627 - Csc - [id number] Implanted:Qty: 1 on 06/03/2024 by Vale Palacios DO at [facility] Clip Left: Breast TELEFLEX- WECK CLOSURE SYS [id number] 01/06/2029 / / [id number] Closure Perclose Prostyle Sut Mediate 83736-43 - [id number] Implanted:Qty: 1 on 02/17/2024 by Gallito Lance MD at [facility] Closure Device Right: Groin FLYNN- VASC DEVICE [id number] 11/18/2025 68100-42 / / [id number] Closure Perclose Prostyle Sut Mediate 75396-84 - [id number] Implanted:Qty: 1 on 02/17/2024 by Gallito Lance MD at [facility] Closure Device Right: Groin FLYNN- VASC DEVICE [id number] 11/18/2025 72213-50 / / [id number] Closure Perclose Prostyle Sut Mediate 31173-96 - [id number] Implanted:Qty: 1 on 02/17/2024 by Gallito Lance MD at [facility] Closure Device Right: Groin FLYNN- VASC DEVICE [id number] 11/18/2025 28860-33 / / [id number] Dev Closure Angioseal 6fr Vip 753925 - [id number] Implanted:Qty: 1 on 02/17/2024 by Gallito Lance MD at [facility] Closure Device Left: Groin TERUMO- CARDIOVASC SYS 09/24/2024 [id number] / / [id number] Vlv Aort Evolut Fx Tavr 26mm Evolutfx-26 - [id number] Implanted:Qty: 1 on 02/17/2024 by Gallito Lance MD at [facility] Valve Left: Heart MEDTRONIC- HEART VALVE [id number] 07/06/2025 EVOLUTFX -26 / [id number] / Procedures Procedure Name Priority Date/Time Associated Diagnosis Comments COMPREHENSIVE METABOLIC PANEL Routine 01/28/2025 1:22 PM CDT COMPREHENSIVE METABOLIC PANEL Routine 01/22/2025 11:39 AM CDT XR DEXA BONE DENSITY AXIAL 1 OR MORE SITES Routine 11/10/2023 11:10 AM CDT Osteoporosis, unspecified osteoporosis type, unspecified pathological fracture presence COLON CANCER SCREEN, STOOL DNA Routine 12/26/2020 2:45 PM CDT Screening for colon cancer from Last 3 Months or Most Recently Relevant to Health Maintenance Results * COMPREHENSIVE METABOLIC PANEL (01/28/2025 1:22 PM CDT) Only the most recent of2 resultswithin the time period is included. Blood us Abstract Provider CHEMISTRY ORDERABLES Final Res ult * (ABNORMAL) XR DEXA BONE DENSITY AXIAL [...] clinical management available online at [email or web address] Enter [employer] for Select DXA and the Femoral Neck [...] clinical management available online at [email or web address] Enter [employer] for Select DXA and the Femoral Neck BMD value. Sánchez Macario MD DIAGNOSTIC IMAGING ORDERA BLES Final Result * COLON CANCER SCREEN, STOOL DNA (12/26/2020 2:45 PM CDT) COLOGUARD RESULT Negative Negative [facility] Comment: NEGATIVE TEST RESULT. A negative [...] (Piotr Rosario al, N Engl J Med 2014;370(14):2560-2466) The normal value (reference range) for this assay is negative. COLOGUARD RE-SCREENING RECOMMENDATION: Periodic colorectal cancer screening is an important part of preventive healthcare for asymptomatic individuals at average risk for colorectal cancer. Following a negative Cologuard result, the [place] Cancer Society and U.S. Multi-Society Task Force screening guidelines recommend a Cologuard re-screening interval of 3 years. References: [place] [employer] Society Guideline for Colorectal Cancer Screening: https://www.cancer.org/cancer/lukpe-ipruyl-eiuynq/xqplzhpoc-bkagjcsce-jeceush/ac s-rec ommendations.html.; Varun DK, May CR, Denisse JassoK, Colorectal Cancer Screening: Recommendations for Physicians and Patients from the U.S. Multi-Society Task Force on Colorectal Cancer Screening , Am J Gastroenterology 2017; 112:6037-0946. TEST DESCRIPTION: Composite algorithmic analysis of stool [...] (Piotr Rosario al, N Engl J Med 2014;370(14):4878-0334.) Cologuard may produce a false negative or false positive result (no colorectal cancer or precancerous polyp present at colonoscopy follow up). A negative Cologuard test result does not guarantee the absence of CRC or advanced adenoma (pre-cancer). The current Cologuard screening interval is every 3 years. ([place] Cancer Society and U.S. Multi-Society Task Force). Cologuard performance data in a 10,000 patient pivotal study using colonoscopy as the reference method can be accessed at the following location: [email or web address].[employer]booked Ltd/results. Additional description of the Cologuard test process, warnings and precautions can be found at [email or web address] [email or web address]. Stool STOOL SPECIMEN / Unknown 12/26/2020 2:45 PM CDT 12/28/2020 12:18 AM CDT Jorgito RIVERA BODY FLUIDS AND STOOLS Final Result [facility] CLIA # [id number] [address] , [address] [place] [address] from Last 3 Months or Most Recently Relevant to Health Maintenance Insurance MEDICAID [place] DUAL [employer]AGE O [facility] Medicare Part D Advance Directives For more information, please contact: [phone] Documents on File Type Date Recorded Patient Screen Printing Supervisor Expl anation Advance Directive POA 06/17/2016 12:16 [...] 2:42 AM 06/07/2021 6:46 PM Care Teams C Java Developer Relationship Specialty Start Date End Date Sánchez Macario MD [address] [phone] PCP - General Family Practice 04/10/21
--- OUTSIDE RECORDS SUMMARY | 2025-02-07 05:00 | XMS_ITS | Encounter Summary ---
Author Organization [facility] Address [address] [place] [address] Care Team Providers Care Tape Keller Operator Name Role Phone Fabiola Soto MD Primary Care Provider [phone]- [phone] Encounter Details Date Type Department Care Team (Late st Contact Info) Description 10/03/2010 Ancillary Orders [facility] [address] [facility] [address] [place] [address] Philly Darling APRN NO ADDRESS [...] on file Legal Sex Female 5:07 AM OIL FIELD TECHNICIAN Gender Identity Not on file Sexual [...] documented as of this encounter Care Teams Tape Keller Operator Relationship Specialty Start Date End Date Fabiola Soto MD [address] [facility] [place] [address] PCP - General Family Practice 05/27/13 documented as of this encounter
--- OUTSIDE RECORDS SUMMARY | 2025-02-07 05:00 | XMS_ITS | Encounter Summary ---
Author Organization [facility] Address [address] [place] [address] Care Team Providers Care Feed Mixer Name Role Phone Sánchez Macario MD Primary Care Provider +1 [phone] Encounter Details Date Type Department Care Team [...] often do you attend chur ch or jain services? Never 01/05/2020 Do you belong to [...] on file Legal Sex Female 9:22 AM WRAPPER DIPPER Gender Identity Not on file Sexual Orientation Not on file COVID-19 Exposure Response Date Recorded In the last month, have you been in contact with someone who was confirmed or suspected to have Coronavirus / COVID-19? Yes 05/18/2021 1:41 PM WRAPPER DIPPER documented as of this encounter Plan of Treatment Upcoming Encounters Date Type Department Care Team (Late st Contact Info) Description 02/10/2025 11:30 AM CDT Appointment [facility] Echo [address] [place] [phone] Gallito Lance MD [address] [facility] [address] [place] [address] 02/10/2025 1:00 PM CDT Office Visit [facility] [address] [facility] [address] [place] [phone] Sarita Oro, [facility] [address] [facility] [address] [place] [phone] 04/29/2025 4:00 PM WRAPPER DIPPER Office Visit [facility] [place] [address] [phone] Sánchez Macario MD [address] [phone] documented as of this encounter Visit Diagnoses Not on filedocumented in this encounter Additional Health Concerns Infection Onset Date Last Indicated Resolved Time COVID-19 05/11/2021 05/11/2021 05/31/2021 2:22 AM WRAPPER DIPPER R/O Respiratory 06/07/2021 06/07/2021 06/07/2021 1 0:14 PM WRAPPER DIPPER COVID-19 04/18/2023 04/18/2023 05/08/2023 1:16 AM WRAPPER DIPPER R/O C. diff 09/04/2023 09/04/2023 09/04/2023 11:4 7 PM CDT R/O COVID-19 09/04/2023 09/04/2023 09/04/2023 6:46 PM CDT R/O COVID-19 11/11/2023 11/11/2023 11/11/2023 1:08 PM CDT Assessment Noted Time PHQ-9 Depression Total Score: 1 12/14/19 11:24 AM CDT documented as of this encounter Care Teams Feed Mixer Relationship Specialty Start Date End Date Sánchez Macario MD [address] [phone] PCP - General Family Practice 04/10/21 documented as of this encounter
--- OUTSIDE RECORDS SUMMARY | 2025-02-07 05:00 | XMS_ITS | Encounter Summary ---
Author Organization [facility] Address [address] [place] [address] Care Team Providers Care Evidence Technician Name Role Phone Sánchez Macario MD Primary Care Provider [phone] [phone] Encounter Details Date Type Department Care Team [...] often do you attend chur ch or buddhism services? Never 01/05/2020 Do you belong to [...] on file Legal Sex Female 9:22 AM LABOR CONCILIATOR Gender Identity Not on file Sexual Orientation Not on file COVID-19 Exposure Response Date Recorded In the last month, have you been in contact with someone who was confirmed or suspected to have Coronavirus / COVID-19? Yes 05/18/2021 1:41 PM LABOR CONCILIATOR documented as of this encounter Plan of Treatment Upcoming Encounters Date Type Department Care Team (Late st Contact Info) Description 02/10/2025 11:30 AM CDT Appointment Echo [address] [place] [phone] Gallito Lance MD [address] [facility] [address] [place] [phone] 02/10/2025 1:00 PM CDT Office Visit [facility] [address] [facility] [address] [place] [phone] Sarita Oro, [facility] [address] [facility] [address] [place] [phone] 04/29/2025 4:00 PM LABOR CONCILIATOR Office Visit [facility] [place] [address] [address] Sánchez Macario MD [address] [phone] documented as of this encounter Visit Diagnoses Not on filedocumented in this encounter Additional Health Concerns Infection Onset Date Last Indicated Resolved Time COVID-19 05/11/2021 05/11/2021 05/31/2021 2:22 AM LABOR CONCILIATOR R/O Respiratory 06/07/2021 06/07/2021 06/07/2021 1 0:14 PM LABOR CONCILIATOR COVID-19 04/18/2023 04/18/2023 05/08/2023 1:16 AM LABOR CONCILIATOR R/O C. diff 09/04/2023 09/04/2023 09/04/2023 11:4 7 PM CDT R/O COVID-19 09/04/2023 09/04/2023 09/04/2023 6:46 PM CDT R/O COVID-19 11/11/2023 11/11/2023 11/11/2023 1:08 PM CDT Assessment Noted Time PHQ-9 Depression Total Score: 1 12/14/19 11:24 AM CDT documented as of this encounter Care Teams Evidence Technician Relationship Specialty Start Date End Date Sánchez Macario MD [address] [phone] PCP - General Family Practice 04/10/21 documented as of this encounter
--- OUTSIDE RECORDS SUMMARY | 2025-02-07 05:00 | XMS_ITS | Encounter Summary ---
Author Organization [facility] Address [address] [place] [address] Care Team Providers Care House Coordinator Name Role Phone Fabiola Soto MD Primary Care Provider [phone] Encounter Details Date Type Department Care Team (Late st Contact Info) Description 01/20/2019 Ancillary Orders [facility] [address] [facility] [address] [place] [address] Jorgito Meza PA NO ADDRESS [...] on file Legal Sex Female 5:07 AM TIE PULLER Gender Identity Not on file Sexual [...] documented as of this encounter Care Teams House Coordinator Relationship Specialty Start Date End Date Fabiola Soto MD [address] [address] PCP - General Family Practice 05/27/13 documented as of this encounter
--- OUTSIDE RECORDS SUMMARY | 2025-02-07 05:01 | XMS_ITS | Encounter Summary ---
Author Organization [facility] Address [address] [place] [address] Care Team Providers Care Shoe Shanker Name Role Phone Sánchez Macario MD Primary Care Provider [phone] [phone] Encounter Details Date Type Department Care Team (Late st Contact Info) Description 01/26/2025 Orders Only [facility] Health Information Management [place] [address] [place] [address] Provider, Abstract NO ADDRESS ON FILE Social [...] any clubs o r organizations such as christian groups, unions, fraternal or athletic groups, or [...] Master's degree (e.g., MA, MS, Omid, MEd, COMMERCIAL LINES ACCOUNT MANAGER, TYSHAWN) 06/05/2021 Comments No Sex and Gender Information Value Date Recorded Sex Assigned at Not on file Legal Sex Female 9:22 AM ORTHOPAEDIC PHYSICIAN ASSISTANT Gender Identity Not on file Sexual Orientation Not on file documented as of this encounter Plan of Treatment Upcoming Encounters Date Type Department Care Team (Late st Contact Info) Description 02/10/2025 11:30 AM CDT Appointment [facility] [address] [place] [address] Gallito Lance MD [address] [facility] [address] [place] [address] 02/10/2025 1:00 PM CDT Office Visit [facility] [address] [facility] [address] [place] [address] Sarita Oro, PLATE STACKER HAND [address] [facility] [address] [place] [address] 04/29/2025 4:00 PM ORTHOPAEDIC PHYSICIAN ASSISTANT Office Visit [facility] [address] [address] Sánchez Macario MD [address] [place] [address] documented as of this encounter Procedures Procedure Name Priority Date/Time Associated Diagnosis Comments COMPREHENSIVE METABOLIC PANEL Routine 01/22/2025 11:39 AM CDT documented in this encounter Results * COMPREHENSIVE METABOLIC PANEL (01/22/2025 11:39 AM CDT) Blood us Abstract Provider CHEMISTRY ORDERABLES Final Res ult documented in this encounter Visit Diagnoses Not on filedocumented in this encounter Additional Health Concerns Assessment Noted Time PHQ-9 Depression Total Score: 1 07/02/19 25 2:44 PM CDT documented as of this encounter Care Teams Shoe Shanker Relationship Specialty Start Date End Date Sánchez Macario MD [address] [address] PCP - General Family Practice 04/10/21 documented as of this encounter
--- OUTSIDE RECORDS SUMMARY | 2025-02-07 05:01 | XMS_ITS | Encounter Summary ---
Author Organization [facility] Address [address] [place] [address] Care Team Providers Care Caretaker Resort Name Role Phone Sánchez Macario MD Primary Care Provider [phone] [phone] Encounter Details Date Type Department Care Team (Late st Contact Info) Description 02/01/[address] [facility] [address] [place] [address] Provider, Abstract NO ADDRESS ON FILE Social [...] any clubs o r organizations such as lutheran groups, unions, fraternal or athletic groups, or [...] Master's degree (e.g., MA, MS, Omid, MEd, WILDLIFE CONSERVATION OFFICER, TYSHAWN) 06/05/2021 Comments No Sex and Gender Information Value Date Recorded Sex Assigned at Not on file Legal Sex Female 9:22 AM HAIR CLIPPER POWER Gender Identity Not on file Sexual Orientation Not on file documented as of this encounter Plan of Treatment Upcoming Encounters Date Type Department Care Team (Late st Contact Info) Description 02/10/2025 11:[address] [facility] [address] [place] [address] Gallito Lance MD [address] [place] [address] 02/10/2025 1:00 PM CDT Office Visit [facility] [address] [facility] [address] [place] [address] Sarita Oro, TESTER VIBRATOR EQUIPMENT [address] [facility] [address] [place] [address] 04/29/2025 4:00 PM HAIR CLIPPER POWER Office Visit [facility] [place] [address] [address] Sánchez Macario MD [address] [place] [address] documented as of this encounter Procedures Procedure Name Priority Date/Time Associated Diagnosis Comments COMPREHENSIVE METABOLIC PANEL Routine 01/28/2025 1:22 PM CDT documented in this encounter Results * COMPREHENSIVE METABOLIC PANEL (01/28/2025 1:22 PM CDT) Blood us Abstract Provider CHEMISTRY ORDERABLES Final Res ult documented in this encounter Visit Diagnoses Not on filedocumented in this encounter Additional Health Concerns Assessment Noted Time PHQ-9 Depression Total Score: 1 07/02/19 25 2:44 PM CDT documented as of this encounter Care Teams Caretaker Resort Relationship Specialty Start Date End Date Sánchez Macario MD [address] [address] PCP - General Family Practice 04/10/21 documented as of this encounter
--- OUTSIDE RECORDS SUMMARY | 2025-02-07 05:01 | XMS_ITS | Encounter Summary ---
Author Organization [facility] Address [address] [place] [address] Care Team Providers Care Recycling Technician Name Role Phone Sánchez Macario MD Primary Care Provider [phone] [phone] Encounter Details Date Type Department Care Team (Late st Contact Info) Description 11/01/2024 Abstract [facility] [address] [facility] [place] [address] Provider, Abstract NO ADDRESS ON FILE Social [...] Master's degree (e.g., MA, MS, Omid, MEd, PRINCIPAL LAW CLERK, TYSHAWN) 06/05/2021 Comments No Sex and Gender Information Value Date Recorded Sex Assigned at Not on file Legal Sex Female 9:22 AM PRODUCTION CLOTH CUTTER Gender Identity Not on file Sexual Orientation Not on file documented as of this encounter Plan of Treatment Upcoming Encounters Date Type Department Care Team (Late st Contact Info) Description 02/10/2025 11:30 AM CDT Appointment [facility] Echo [address] [place] [address] Gallito Lance MD [address] [place] [address] 02/10/2025 1:00 PM CDT Office Visit [facility] [address] [facility] [address] [place] [address] Sarita Oro, RN INFUSION [address] [facility] [address] [place] [address] 04/29/2025 4:00 PM PRODUCTION CLOTH CUTTER Office Visit [facility] [address] [address] Sánchez Macario MD [address] [place] [address] documented as of this encounter Visit Diagnoses Not on filedocumented in this encounter Additional Health Concerns Assessment Noted Time PHQ-9 Depression Total Score: 1 07/02/19 25 2:44 PM CDT documented as of this encounter Care Teams Recycling Technician Relationship Specialty Start Date End Date Sánchez Macario MD [address] [address] PCP - General Family Practice 04/10/21 documented as of this encounter
--- OUTSIDE RECORDS SUMMARY | 2025-02-07 05:01 | XMS_ITS | Data Portability ---
Author Organization Zeenat S[facility] Address [address] [place] [address] Assessment No assessment recorded. Plan of Treatment [...] By Organization Details Last Modified Time 09/17/2023 [id number] Hospital records reviewed. Admitted with septic shock and later developed adrenal insufficiency known aortic stenosis with plan for evaluation for TAVR Labs weekly x 4 weeks. [email or web address] Not available 09/22/2023 12:40:57 09/24/2023 [id number] stop several supplements with nausea. d/c lasix d/t low bp. 1 L NS now. Not available 09/25/2023 10:29:18 11/19/2023 [id number] records reviewed . Admitted for respiratory failure with COPD exacerbation, found to have parainfluenza infection. Tx with IV abx and steroids. Ascending aortic dilation 4.1cm in July. Blood pressure low, staff to monitor. Still on prednisone. Will order budesonide nebs bid, duonebs TID. Labs weekly x 4 weeks. f/u 1 week. [email or web address] Not available 11/20/2023 11:06:45 11/26/2023 [id number] doing well, breathing tx helped with cough. mood good. Not available 11/27/2023 11:59:45 Reason for Referral None Reported. Problems Name Problem SNOMED Code Status Onset Date Resolution Date Notes Provider Name and Address Organization Details Recorded Time Hospital inpatient stay within past 30 days 4415885321182 Active 2023 [facility] 13:50:57 Iatrogenic adrenal insufficie ncy 925058796 Active 2023 [facility] 4 13:52:10 Septic shock 23670570 Active 2023 CATALINA BAUER [facility] 4 13:52:11 Interstiti al lung disease 419404717 Active 2023 CATALINA BAUER [facility] 4 13:52:13 Infiltrati ng duct carcinoma of breast 293207582 Active 2023 CATALINA BAUER [facility] 4 13:52:28 Severe aortic valve stenosis 332526684 Active 2023 CATALINA BAUER [facility] 4 13:52:37 Essential hypertensi on 37305631 Active 2023 CATALINA BAUER [facility] 4 11:03:39 Pulmonary embolism 94406903 Active 2023 CATALINA BAUER [facility] 4 11:03:49 Chronic kidney disease stage 3 367829667 Active 2023 CATALINA BAUER [facility] 4 11:04:01 Depressive disorder 13316714 Active 2023 [facility] 4 11:04:08 Problem Notes None recorded. [...] Updated DateTime 4 167.64 cm 41 kg/m2 653614. 46 g 85 /min 18 /min 98.2 [degF] 94 % 94 % 113/67 mm[Hg] [facility] 4 13:49:06 Date Recorded Body height Body mass index (BMI) Body weight Heart rate Respiratory rate Body temperature Oxygen saturation Oxygen saturation in Arterial blood by Pulse oximetry Systolic And Diastolic Provider Name and Address Organization Details Last Updated DateTime 4 167.64 cm 41 kg/m2 595653. 46 g 84 /min 16 /min 97 [degF] 94 % 94 % 108/65 mm[Hg] [facility] 4 09:40:59 Date Recorded Body height Body mass index (BMI) Body weight Heart rate Respiratory rate Body temperature Oxygen saturation Oxygen saturation in Arterial blood by Pulse oximetry Systolic And Diastolic Provider Name and Address Organization Details Last Updated DateTime 4 167.64 cm 35 kg/m2 82367.5 4 g 91 /min 18 /min 98.2 [degF] 94 % 94 % 111/60 mm[Hg] [facility] BAU[facility] 11:57:35 Social History None recorded. Functional Status None recorded. Mental Status None recorded. Family History Nothing Reported. Medical History No medical history recorded. Gynecological HistoryNo gynecological history recorded. Obstetrics History GPAL:G 0 P 0 0 0 0 Past Encounters Encounter ID Performer Location Encounter Start Date Encounter Closed Date Diagnosis/Indication Diagnosis SNOMED-CT Code Diagnosis ICD10 Code Diagnosis IMO Codes Diagnosis Note [id number] Piotr Palmer DO [facility] [address] [place] [address] 09/17/2023 11:29:53 09/22/2023 14:32:29 Hospital inpatient stay within past 30 days 1517371913 106 Z76.89 Septic shock 40245814 R6 5.21 Iatrogenic adrenal insufficiency 475249165 E27.3 Interstiti al lung disease 372746044 J84.9 Infiltrati ng duct carcinoma of breast 673465342 C50.919 Severe aor tic valve stenosis 643272418 I35.0 [id number] Piotr Palmer [facility] ([facility]) [address] [place] [address] 09/24/2023 08:12:39 09/30/2023 12:02:33 Interstitial lung disease 830279006 J84.9 Iatrogenic adrenal insufficiency 168095921 E27.3 Infiltrati ng duct carcinoma of breast 080444742 C50.919 Nausea 296073190 R11.0 Dehydration 00620367 E86 .0 [id number] Piotr Palmer [facility] ([facility]) [address] [place] [address] 11/19/2023 16:38:37 11/24/2023 14:57:55 Hospital inpatient stay within past 30 days 8101051089 106 Z76.89 Severe aor tic valve stenosis 833255021 I35.0 Essential hypertension 20338914 I10 Pulmonary embolism 82886 003 I26.99 Chronic ki dney disease stage 3 740718578 N18.31 Depressive disorder 3548 9007 F32.A [id number] Piotr Palmer [facility] ([facility]) [address] [place] [address] 11/26/2023 11:18:04 11/27/2023 16:41:14 Interstitial lung disease 381665657 J84.9 Chronic ki dney disease stage 3 752971572 N18.31 Depressive disorder 3548 9007 F32.A Essential hypertension 82706190 I10 Health Concerns Section Related Observation LastModified by Organization Detai ls LastModified Time None Recorded Concern Status LastModified by Organization Details LastModified Time None Recorded Advance Directives Directive None Recorded Payers Insurance Date Sequence Insurance Name Policy Number Policy Mallory Covered Member ID Mallory Member ID Guarantor Name 09/25/2023 1 [place] Janet Calvillo [id number] Janet Calvillo 11/25/2023 [place] - [facility] (MEDICARE) Janet Calvillo [id number] Janet Calvillo 09/25/2023 1 [place] - [place]) [id number] Janet Calvillo [id number] Janet Calvillo 12/02/2023 1 [place] (MEDICARE REPLACEMENT HMO) [id number] Janet Calvillo [id number] Janet Calvillo 09/17/2023 1 [place] - [place]) Janet Calvillo [id number] Janet Calvillo Notes Date Note Type [...] noted in the HPI Piotr Palmer DO [address] [place] [address], [address], [facility] 09/22/2023 12:41:20 09/24/2023 text/html Care Management - GeneralReported by [facility], patient reportsexpected outcome: stabilizeandprognosis: moderate. For context, patient reportsnot current smoker. For lifestyle changes, patient reportsexercises regularly. For medication therapy, patient reportscompliant with follow-up visits,compliance with oral medication is good,understands effect of concurrent medications,understand s potential side effects, andunderstands missed doses.ROS as noted in the [facility] Piotr Palmer[address], [address], [facility] 09/29/2023 10:18:02 11/19/2023 text/html Care Management - GeneralReported by [facility], patient reportsexpected outcome: stabilizeandprognosis: moderate. For context, patient reportsnot current smoker. For lifestyle changes, patient reportsexercises regularly. For medication therapy, patient reportscompliant with follow-up visits,compliance with oral medication is good,understands effect of concurrent medications,understand s potential side effects, andunderstands missed doses.ROS as noted in the [facility] Piotr Delong[address], [address], [facility] 11/24/2023 08:50:43 11/26/2023 text/html Care Management - GeneralReported by [facility], patient reportsexpected outcome: stabilizeandprognosis: moderate. For context, patient reportsnot current smoker. For lifestyle changes, patient reportsexercises regularly. For medication therapy, patient reportscompliant with follow-up visits,compliance with oral medication is good,understands effect of concurrent medications,understand s potential side effects, andunderstands missed doses.ROS as noted in the [facility] Piotr [address], [address], [facility] 12/01/2023 12:00:19 OBGyn Episode No OBEpisode recorded.
--- OUTSIDE RECORDS SUMMARY | 2025-02-07 05:01 | XMS_ITS | Encounter Summary ---
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 Name Role Phone Fabiola Soto MD Primary Care Provider [phone] Encounter Details Date Type Department Care Team (Late st Contact Info) Description 08/29/2012 Ancillary Orders [facility] General Laboratory Services [place] [address] [place] [address] Social History Tobacco Use Types Packs/Day Years Used Date Smoking Tobacco: Never Smokeless Tobacco: Never Alcohol Use Standard Drinks/Week Comments No 0 (1 standard drink = 0.6 oz pur e alcohol) Comments No Sex and Gender Information Value Date Recorded Sex Assigned at Not on file 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 Gender Identity Not on file Sexual Orientation [...] - 1.30 mg/dL 08/29/2012 3:19 PM CDT [facility] GFR 62 >=60 mL/min/1.7 3 sq meter 08/29/2012 3:19 PM CDT [facility] GFR, 75 >=60 mL/min/1.7 3 sq meter 08/29/2012 3:19 PM CDT [facility] [employer] [facility] Blood specimen (specimen) 08/29/2012 9:00 AM CDT 08/29/2012 1:48 PM CDT Narrative [facility] [employer] [facility] - 08/29/2012 3:19 PM CDT eGFR has [...] ORDERAB LES Final Result Performing Organization Address City/[facility]/ZIP Co de Phone Number [facility] [employer] [facility] CLIA # [id number] [address] [place] [address] * (ABNORMAL) ALT (08/29/2012 9:00 AM CDT) ALT 23(L) 30 - 65 U/L 08/29/2012 3:19 PM CDT [facility] [employer] [facility] Blood specimen (specimen) 08/29/2012 9:00 AM CDT 08/29/2012 1:48 PM CDT [facility] [place] CHEMISTRY ORDERAB LES Final Result [facility] [employer] [facility] CLIA # [id number] [address] [address] * (ABNORMAL) CBC WITHOUT DIFFERENTIAL (08/29/2012 9:00 AM CDT) WBC 5.6 4.0 - 10.0 K/uL 08/29/2012 8:45 PM CDT [facility] RBC 4.45 3.93 - 5.22 M/uL 08/29/2012 8:45 PM CDT [facility] HEMOGLOBIN 13.7 11.2 - 15.7 g/dL 08/29/2012 8:45 PM CDT [facility] HEMATOCRIT 42.4 34.1 - 44.9 % 08/29/2012 8:45 PM CDT [facility] MCV 95.3(H) 79.4 - 94.8 fL 08/29/2012 8:45 PM CDT [facility] MCH 30.8 25.6 - 32.2 pg 08/29/2012 8:45 PM CDT [facility] MCHC 32.3 32.2 - 35.5 g/dL 08/29/2012 8:45 PM CDT [facility] PLATELETS 255 163 - 337 K/uL 08/29/2012 8:45 PM CDT [facility] MPV 11.5 10.0 - 14.8 fL 08/29/2012 8:45 PM CDT [facility] RDW 14.1 11.0 - 14.5 % 08/29/2012 8:45 PM CDT [facility] RDW-STDEV 47.2 37.0 - 54.0 fL 08/29/2012 8:45 PM CDT [facility] Blood specimen (specimen) 08/29/2012 9:00 AM CDT 08/29/2012 1:48 PM CDT us Philly Darling [place] [place] HEMATOLOGY ORDERA BLES Final Result [facility] [employer] [facility] CLIA # [id number] [address] [place] [address] * (ABNORMAL) TSH (08/29/2012 9:00 AM CDT) TSH 5.94(H) 0.30 - 4.80 uIU/mL 08/29/2012 3:19 PM CDT [facility] [employer] [facility] Blood specimen (specimen) 08/29/2012 9:00 AM CDT 08/29/2012 1:48 PM CDT [facility] ORDERAB LES Final Result Performing Organization Address City/[facility]/ZIP Co de Phone Number [facility] [employer] [facility] CLIA # [id number] [address] [place] [address] * HEMOGLOBIN A1C (08/29/2012 9:00 AM CDT) HEMOGLOBIN A1C 5.8 4.5 - 6.2 % 08/31/2012 9:51 AM CDT [facility] [employer] [facility] EST. AVG GLUCOSE, A1C 120 mg/dL 08/31/2012 9:51 AM CDT [facility] [employer] [facility] Blood specimen (specimen) 08/29/2012 9:00 AM CDT 08/29/2012 1:48 PM CDT [facility] CHE[facility] ORDERAB LES Final Result [facility] [employer] [facility] CLIA # [id number] [address] [place] [address] * (ABNORMAL) LIPID PANEL (08/29/2012 9:00 AM CDT) CHOLESTEROL 218(H) 130 - 200 mg/dL 08/29/2012 3:19 PM CDT [facility] [employer] [facility] TRIGLYCERIDE 101 30 - 200 mg/dL 08/29/2012 3:19 PM CDT [facility] [employer] [facility] HDL 50 35 - 80 mg/dL 08/29/2012 3:19 PM CDT [facility] [employer] [facility] LDL CALCULATED 148(H) 0 - 100 mg/dL 08/29/2012 3:19 PM CDT [facility] Blood specimen (specimen) 08/29/2012 9:00 AM CDT 08/29/2012 1:48 PM CDT Narrative [facility] [employer] [facility] - 08/29/2012 3:19 PM CDT TOTAL CHOLESTEROL mg/dL Desirable <200 Borderline high 200-239 High >=240 TRIGLYCERIDES mg/dL Normal <150 Borderline high 150-199 High 200-499 Very high >=500 HDL CHOLESTEROL mg/dL Low <40 Normal 40-60 Desirable >60 LDL CHOLESTEROL mg/dL Optimal <100 Low risk 100-129 Borderline high 130-159 High 160-189 Very high >=190 Based on AHA/NCEP Guidelines Philly Darling [place] CHEMISTRY ORDERAB LES Final Result [facility] [employer] [facility] CLIA # [id number] [address] [address] documented in this encounter Visit Diagnoses Not on filedocumented in this encounter Additional Health Concerns Infection Onset Date Last Indicated Resolved Time R/O C. diff 10/16/2020 10/16/2020 10/16/2020 11:1 0 AM CDT documented as of this encounter Care Teams Carbon Coating Machine Operator Relationship Specialty Start Date End Date Fabiola Soto MD [address] [address] PCP - General Family Practice 05/27/13 documented as of this encounter
--- NOTE | 2025-02-07 05:02 | W.ED.FALL ---
HPI - Fall General: Chief Complaint: Fall Stated Complaint: FALL Time Seen by Provider: 02/07/25 04:54 Source: patient and EMS Mode of arrival: EMS Limitations: no limitations History of Present Illness: 84-year-old female states she had gotten up to go to the bathroom last night roughly 5 to 6 hours ago tripped and fell. States she did hit the right side of her ribs has been having right sided rib pain since then. States at rest her pain is minimal roughly 2 out of 10 but it is much worse with deep breaths and palpation. Denies any other injuries denies hitting her head. She has been ambulatory since the event Associated symptoms-after fall: Reports chest pain Related Data Home Medications ?Medication ?Instructions ?Recorded ?Confirmed potassium chloride 10 mEq 10 meq PO DAILY 12/28/19 01/28/25 capsule,extended release tolterodine 4 mg capsule,extended 4 mg PO DAILY 12/28/19 01/28/25 release 24 hr denosumab 60 mg/mL subcutaneous 60 mg SUBCUT .[id number] 06/26/20 01/28/25 syringe (Prolia) cyanocobalamin (vitamin B-12) 2,500 mcg PO QAM 07/19/21 01/28/25 2,500 mcg tablet fluoxetine 40 mg capsule 40 mg PO DAILY 12/08/23 01/28/25 ropinirole 0.25 mg tablet 0.25 mg PO DAILY 12/15/23 01/28/25 tizanidine 2 mg tablet 2 mg PO DAILY PRN Spasms 03/15/24 01/28/25 acetaminophen 325 mg tablet 325 mg PO QID PRN Pain 04/22/24 01/28/25 hydrocortisone 20 mg tablet See Rx Instructions .Route .COMPLEX 01/22/25 01/28/25 levothyroxine 150 mcg tablet 150 mcg PO QAM 01/22/25 01/28/25 lorazepam 1 mg tablet 1 mg PO Q8H PRN Anxiety 01/22/25 01/28/25 multivitamin with minerals 1 tab PO DAILY 01/22/25 01/28/25 cranberry 500 mg capsule 500 mg PO QAM 01/28/25 01/28/25 lactobacillus combination no.4 3 3,000 mmu cells PO DAILY 01/28/25 01/28/25 billion cell capsule (Probiotic) loperamide 2 mg capsule 2 mg PO Q4H PRN Diarrhea 01/28/25 01/28/25 magnesium oxide 400 mg PO BID 01/28/25 01/28/25 red yeast rice 600 mg capsule 600 mg PO BID 01/28/25 01/28/25 vitamin E 268 mg (400 unit) capsule 268 mg PO DAILY 01/28/25 01/28/25 vitamins-lipotropics tablet 1 tab PO BID 01/28/25 01/28/25 Previous Rx's ?Medication ?Instructions ?Recorded custom inserts #1 ea 08/06/23 apixaban 5 mg tablet (Eliquis) 5 mg PO BID #60 tabs 09/11/23 meclizine 25 mg tablet 25 mg PO QID PRN dizziness #20 tabs 10/15/24 ondansetron 4 mg disintegrating 4 mg PO Q6H PRN nausea and 01/22/25 tablet vomiting #14 tabs hydrocodone 5 mg-acetaminophen 325 1 tab PO Q6H PRN pain #14 tabs 02/07/25 mg tablet Allergies Allergy/AdvReac Type Severity Reaction Status Date / Time tetanus toxoid, adsorbed Allergy Severe unknown Verified 02/07/25 05:01 ciprofloxacin (From Cipro) Allergy Unknown ADR-Vomitin Verified 02/07/25 05:01 g erythromycin base Allergy Unknown ADR-Vomitin Verified 02/07/25 05:01 g gabapentin (From Neurontin) Allergy Unknown unknown Verified 02/07/25 05:01 Influenza Virus Vaccines Allergy Unknown unknown Verified 02/07/25 05:01 tramadol (From Ultram) Allergy Unknown unknown Verified 02/07/25 05:01 aspirin Allergy stomach Verified 02/07/25 05:01 pain, unbearable egg Allergy unknown Verified 02/07/25 05:01 Fish Containing Products Allergy ALGY-Rash Verified 02/07/25 05:01 NSAIDS (Non-Steroidal Allergy heartburn, Verified 02/07/25 05:01 Anti-Inflamma stomach pain Tetanus Vaccines and Toxoid Allergy unknown Verified 01/19/25 09:48 hydrocodone (From Vicodin) AdvReac Mild ADR-Nausea Verified 01/19/25 09:48 adhesive AdvReac Unknown unknown Verified 01/19/25 09:48 Review of Systems Card: Reports: chest pain PFS ED PFSH: Medical History Pulmonary nodules 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 Primary osteoarthritis of left knee Iron deficiency anemia Dyslipidemia Port-A-Cath in place placed 12/2022 Adrenal insufficiency hospital stay 08/2023 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 History of recurrent UTI (urinary tract infection) Interstitial lung disease Asthma Breast cancer Hydronephrosis of right kidney Osteoporosis Arthritis Aortic stenosis Hypertension DVT (deep venous thrombosis) Pulmonary embolism Obesity Surgical History History of cardiac catheterization 07/2023 no obstructive disease Hx of tubal ligation Hx of cystoscopy Hx of colonoscopy Age 65 Hx of cholecystectomy H/O: hysterectomy Hx of cataract surgery S/P tonsillectomy Family History Father , AT 92 Congestive heart failure (CHF) Mother , AT 100 of unknown cause Other CAD (coronary artery disease) Cancer Diabetes Hyperlipidemia Hypertension Stroke Denies family history of Psychiatric illness Chronic kidney disease (CKD) Suicide Family history of premature coronary artery disease Lung disease Social History Smoking and tobacco/nicotine status: never used tobacco/nicotine Alcohol intake: never Substance/Drug Use: never Marital status: / Current occupational status: retired and disabled Physical Exam Const: COMMON NORMALS: no acute distress, patient oriented x3 and healthy appearing HENMT: COMMON NORMALS: normocephalic and atraumatic HEAD & SCALP: normocephalic and atraumatic Eye: COMMON NORMALS: conjunctivae normal CONJUNCTIVA: Yes conjunctivae normal Neck/C-Spine: COMMON NORMALS: full ROM and supple Chest: COMMONS NORMALS: normal inspection of the chest Resp: COMMON NORMALS: normal respiratory effort, No retractions, No use of accessory muscles and clear to auscultation bilaterally AUSCULTATION: clear to auscultation bilaterally Cardio: COMMON NORMALS: regular rate RATE: regular rate Extremity: COMMON NORMALS: normal to inspection and full ROM Neuro: COMMON NORMALS: patient oriented x3, moves all extremities and no focal motor deficits Psych: COMMON NORMALS: mental status grossly normal, Normal thought process present and cooperative THOUGHT PROCESS: Normal thought process present Skin: COMMON NORMALS: no rashes or lesions noted and no wounds GENERAL SKIN EXAM: no rashes or lesions noted Course Vital Signs: Vital signs: Vital Signs Temperature 97.7 F 02/07/25 04:53 Pulse Rate 99 02/07/25 04:53 Respiratory Rate 20 H 02/07/25 04:53 Blood Pressure 117/79 02/07/25 04:53 Pulse Oximetry 98 02/07/25 04:53 Oxygen Delivery Me thod Nasal Cannula 02/07/25 04:53 Oxygen Flow Rate 2 02/07/25 04:53 MDM - Fall Medical Decision Making Patient presents for right-sided chest pain after a fall. Differential includes pneumothorax, rib fracture. Patient's x-ray shows no signs of pneumothorax does have lung mets that are known has a right sixth rib fracture her oxygen sat here is normal she is stable for discharge at this time we will place her on incentive spirometry will prescribe her hydrocodone she is to follow-up with PCP in 3 to 5 days and return if worsening she understands and agrees to plan. Medical Records I reviewed the patient's medical records. All radiology interpretation(s) finalized by discharge ED provider radiology interpretation(s): xr ribs: right 6th rib fx no pneumothorax Discharge Plan Discharge Patient Disposition: Home Clinical Impression: Closed rib fracture Qualifiers: Encounter type: initial encounter Rib fracture type: single rib Laterality: right Qualified Code(s): S22.31XA - Fracture of one rib, right side, initial encounter for closed fracture Condition: Stable Prescriptions: New hydrocodone-acetaminophen 5-325 mg tablet 1 tab PO Q6H PRN (Reason: pain) Qty: 14 0RF No Action tolterodine 4 mg capsule,extended release 24hr 4 mg PO DAILY potassium chloride 10 mEq capsule, extended release 10 meq PO DAILY Prolia 60 mg/mL syringe 60 mg SUBCUT .[id number] cyanocobalamin (vitamin B-12) 2,500 mcg tablet 2,500 mcg PO QAM (DME) custom inserts See Rx Instructions .Route .MEDSUPPLY Qty: 1 0RF Rx Instructions: As directed tizanidine 2 mg tablet 2 mg PO DAILY PRN (Reason: Spasms) Eliquis 5 mg tablet 5 mg PO BID Qty: 60 0RF ondansetron 4 mg tablet,disintegrating 4 mg PO Q6H PRN (Reason: nausea and vomiting) Qty: 14 0RF levothyroxine 150 mcg tablet 150 mcg PO QAM hydrocortisone 20 mg tablet See Rx Instructions .ROUTE .COMPLEX Rx Instructions: TAKE 1 TABLET BY MOUTH IN THE MORNING AND 1/2 (ONE-HALF) TABLET IN THE EVENING. lorazepam 1 mg tablet 1 mg PO Q8H PRN (Reason: Anxiety) multivitamin with minerals Tablet 1 tab PO DAILY fluoxetine 40 mg capsule 40 mg PO DAILY ropinirole 0.25 mg tablet 0.25 mg PO DAILY acetaminophen 325 mg Tablet 325 mg PO QID PRN (Reason: Pain) meclizine 25 mg tablet 25 mg PO QID PRN (Reason: dizziness) Qty: 20 0RF loperamide [Imodium] 2 mg Capsule 2 mg PO Q4H PRN (Reason: Diarrhea) Rx Instructions: administer after each loose stool until symptoms controlled; do not exceed 8 mg per 24 hrs vitamin E 268 mg (400 unit) Capsule 268 mg PO DAILY cranberry 500 mg Capsule 500 mg PO QAM Rx Instructions: administer with meals Lipoflavonoid Tablet 1 tab PO BID red yeast rice 600 mg Capsule 600 mg PO BID Rx Instructions: give with meal/snack Probiotic 3 billion cell Capsule 3,000 mmu cells PO DAILY Rx Instructions: administer with a meal magnesium oxide 400 mg magnesium Tablet 400 mg PO BID Discharge Orders: Discharge ED (Routine); Ordered 02/07/25 Ordered By: Everette Renee Referrals: Sánchez Macario [Primary Care Provider, [facility]] - 4-7 days Discharge Diet: Advance as tolerated Discharge Activity: Resume usual activity Patient Instructions: Rib Fracture (ED), Opioid Safety Print Language: Tajik Coding Level of Care Code ED Sales Agent Casualty Insurance for Malu Cooper
[2025-02-07] MEDS: HYDROcodone-acetaminophen 5-325 mg Tablet 1 TAB PO (05:21)
[2025-02-07 05:23] VITALS: BP 117/72; PULSE 85; RESP 21; TEMP 36.5; O2SAT 98
[2025-02-07 05:26] VITALS: BP 117/72; PULSE 85; RESP 22; TEMP 36.5; O2SAT 99
[2025-02-07 05:44] VITALS: BP 114/84; PULSE 85; O2SAT 98
[2025-02-07 06:12] VITALS: BP 114/84; O2SAT 93
[2025-02-07 06:30] VITALS: O2SAT 90
== END 2025-02-07 06:55 | disposition home or self-care (01) ==
PROVIDERS: Emergency Provider Emergency Medicine; PCP Family Medicine
DX: S22.31XA Fracture of one rib, right side, initial encounter for closed fracture (principal); Z79.01 Long term (current) use of anticoagulants; E78.5 Hyperlipidemia, unspecified; Z85.3 Personal history of malignant neoplasm of breast; W01.0XXA Fall on same level from slipping, tripping and stumbling without subsequent striking against object, initial encounter
CPT/HCPCS: 71101; 99283; 99291; J9999

== ENCOUNTER 2025-02-08 13:45 | Oncology outpatient (recurring) (ONCR) | payer MEDICARE, MEDICAID, SELFPAY ==
[2025-02-08 14:04] LABS: Hematocrit 39.5 % (36-47); Hemoglobin 12.60 g/dL (11.27-16.99); Mean Corpuscular HGB Conc 31.9 g/dL (30-55); Mean Corpuscular Hemoglobin 30.9 pg (27-33); Mean Corpuscular Volume 96.8 fl (85-98); Nucleated Red Blood Cells % 0 %; Platelet Count 311 10^3/cmm (157-399); Red Blood Count 4.08 10^6/uL (3.85-5.65); White Blood Count 11.12 10^3/uL (3.29-11.43)
[2025-02-08 14:33] LABS: Alanine Aminotransferase 13 U/L (0-33); Albumin Level 3.5 g/dL (3.5-5.2); Alkaline Phosphatase 94 U/L (35-105); Anion Gap 15.1 (5-19); Aspartate Amino Transferase 28 U/L (0-32); Blood Urea Nitrogen 18 mg/dL (8-23); CA 15-3 36.8 U/mL (0-25); Calcium 10.4 mg/dL (8.5-10.5); Carbon Dioxide 28 mmol/L (22-29); Chloride 98 mmol/L (98-107); Creatinine Clr Calc Pharmacy 50.4343; Globulin 3.2 g/dL (1.3-4.6); Glucose 137 mg/dL (65-115); Osmolality Calculated 288 mOsm/kg (285-295); Potassium 4.1 mmol/L (3.5-5.1); Sodium 137 mmol/L (136-145); Total Protein 6.7 g/dL (6.6-8.7)
== END 2025-02-18 23:59 | disposition home or self-care (01) ==
PROVIDERS: PCP Family Medicine; Visit Provider Internal Medicine Medical Oncology
DX: C50.412 Malignant neoplasm of upper-outer quadrant of left female breast (principal); Z17.1 Estrogen receptor negative status [ER-]; C78.00 Secondary malignant neoplasm of unspecified lung; E03.9 Hypothyroidism, unspecified; Z92.3 Personal history of irradiation; Z92.25 Personal history of immunosuppression therapy
CPT/HCPCS: 36591; 80053; 85025; 86300; 99212; 99215

== ENCOUNTER 2025-02-16 16:58 | Observation (INO) | payer MEDICARE, MEDICAID, SELFPAY ==
--- OUTSIDE RECORDS SUMMARY | 2024-10-25 06:25 | XMS_ITS | Encounter Summary ---
Author Organization [facility] Address [address] [place] [address] Care Team Providers Care Ammonium Hydroxide Operator Name Role Phone Sánchez Macario MD Primary Care Provider [phone] Encounter Details Date Type Department Care Team (Late st Contact Info) Description 10/25/2024 6:25 AM CDT Hospital Encounter [facility] Emergency Medical Services [address] [address] Ambulance, [address] [address] Arrived Social History Tobacco Use Types Packs/Day Years [...] often do you attend chur ch or hinduism services? Never 01/05/2020 Do you belong to any clubs o r organizations such as restorationist groups, unions, fraternal or athletic groups, or [...] Master's degree (e.g., MA, MS, Omid, MEd, HUMAN RESOURCES ADVISOR, TYSHAWN) 06/05/2021 Comments No Sex and Gender Information Value Date Recorded Sex Assigned at Not on file Legal Sex Female 9:22 AM ONCOLOGY NURSE NAVIGATOR Gender Identity Not on file Sexual Orientation Not on file documented as of this encounter Plan of Treatment Upcoming Encounters Date Type Department Care Team (Late st Contact Info) Description 02/17/2025 9:00 AM CDT Office Visit [facility] [address] [facility] [address] [place] [phone] Sarita Oro, [facility] [address] [facility] [address] [place] [phone] 04/29/2025 4:00 PM ONCOLOGY NURSE NAVIGATOR Office Visit [facility] [address] [phone] Sánchez Macario MD [address] [phone] documented as of this encounter Visit Diagnoses Not on filedocumented in this encounter Additional Health Concerns Assessment Noted Time PHQ-9 Depression Total Score: 1 07/02/19 25 2:44 PM CDT documented as of this encounter Care Teams Ammonium Hydroxide Operator Relationship Specialty Start Date End Date Sánchez Macario MD [address] [phone] PCP - General Family Practice 04/10/21 documented as of this encounter
--- NOTE | 2025-02-16 16:59 | XRR_ITS ---
PROCEDURE INFORMATION: Exam: XR Chest Exam date and time: 02/16/2025 5:06 PM Age: 84 years old Clinical indication: Shortness of breath; Prior surgery; Surgery date: 6+ months; Surgery type: Chun cath; Additional info: Edema TECHNIQUE: Imaging protocol: Radiologic exam of the chest. Views: 1 view. COMPARISON: CR (CHEST, ) 02/07/2025 4:58 AM FINDINGS: Tubes, catheters and devices: Right chest wall infusion port in place. Lungs: Redemonstration of the multiple metastatic nodules in the left lung and in the visualized right upper lobe. Pleural spaces: Interval increase in the size of the large right-sided pleural effusion. Heart/Mediastinum: Right cardiomediastinal silhouette obscured. Vasculature: Atherosclerotic calcifications of the aortic arch. Bones/joints: No significant focal osseous lesions. Right 6th rib fracture not well visualized on this exam. XR/XR chest 1V portable [id number] IMPRESSION: 1. Interval increase in the size of the large right-sided pleural effusion. 2. Redemonstration of the multiple metastatic nodules in the left lung and in the visualized right upper lobe.
--- NOTE | 2025-02-16 16:59 | ECG_ITS ---
[facility] Date[facility] 2025-02-16 Pat Name: Janet Calvillo Department: Room: Gender: Female Rockboard Lather: : 1940 Requested By: Ese Albarado Order Number: [id number] Lindquist MD: Carl Moya M.D. Measurements Intervals [place] Rate: 86 P: 45 VA: 158 QRS: -34 QRSD: 140 T: 128 QT: 395 QTc: 474 Interpretive Statements SINUS RHYTHM LEFT AXIS DEVIATION [QRS AXIS < -30] LEFT BUNDLE BRANCH BLOCK [120+ ms QRS DURATION, 80+ ms Q/S IN V1/V2, 85+ ms R IN I/aVL/V5/V6] Compared to ECG 01/28/2025 11:53:08 NO SIGNIFICANT CHANGE Electronically Signed On 02-19-2025 20:23:12 CDT by Carl Moya M.D. [email or web address]
[2025-02-16 17:02] VITALS: BP 142/87; PULSE 88; RESP 18; TEMP 36.6; O2SAT 96
--- OUTSIDE RECORDS SUMMARY | 2025-02-16 17:09 | XMS_ITS | Encounter Summary ---
Author Organization [facility] Address [address] [place] [address] Care Team Providers Care Western Felt Hat Blocker Name Role Phone Fabiola Soto MD Primary Care Provider [phone] Encounter Details Date Type Department Care Team (Late st Contact Info) Description 01/20/2019 Ancillary Orders [facility] [address] [phone] Jorgito Meza PA NO ADDRESS ON FILE Screening for breast cancer Social History Tobacco Use Types Packs/Day Years Used Date Smoking Tobacco: Never Smokeless Tobacco: Never Alcohol Use Standard Drinks/Week Comments No 0 (1 standard drink = 0.6 oz pur e alcohol) Comments No Sex and Gender Information Value Date Recorded Sex Assigned at Not on file Legal Sex Female 5:07 AM PRODUCT MANAGER Gender Identity Not on file Sexual [...] documented as of this encounter Care Teams Western Felt Hat Blocker Relationship Specialty Start Date End Date Fabiola Soto MD [address] [address] PCP - General Family Practice 05/27/13 documented as of this encounter
--- OUTSIDE RECORDS SUMMARY | 2025-02-16 17:09 | XMS_ITS | Encounter Summary ---
Author Organization [facility] Address [address] [place] [address] Care Team Providers Care Buildings And Grounds Coordinator Name Role Phone Fabiola Soto MD Primary Care Provider [phone] Reason for Referral * Outpatient Services (Routine) - Closed Specialty Diagnoses / Procedures Referred By Cleopatra jimenez Referred To Contact Diagnoses Screening mammogram Procedures MAMMO SCREENING BILAT Philly Darilng APRN NO ADDRESS ON FILE Referral ID Status Reason Start Date Expiration Date Visits Re quested Visits Authorized [id number] Closed 10/01/2010 03/30/2011 1 1 Encounter Details Date Type Department Care Team (Late st Contact Info) Description 10/01/2010 Ancillary Orders [facility] External Read [address] [place] [address] Philly Darling APRN NO ADDRESS ON FILE Screening mammogram Social History Tobacco Use Types Packs/Day Years Used Date Smoking Tobacco: Never Alcohol Use Standard Drinks/Week Comments Yes 4.2 (1 standard drink = 0.6 oz p ure alcohol) month Comments No Sex and Gender Information Value Date Recorded Sex Assigned at Not on file Legal Sex Female 5:07 AM BILINGUAL PATIENT SUPPORT CASEWORKER Gender Identity Not on file Sexual Orientation [...] 09/26/10: Comparison studies are now available from [facility] dated 08/06/06 and 06/27/05. A [...] of trying to retrieve prior films from [facility]. Those are not available at the time [...] by the Computer Aided Detection system (CAD), [employer], Version 3.1. Procedure Note Elizabeth Rosas MD / Kurt Granados MD - 10/15/2010 BILATERAL SCREENING MAMMOGRAM: Bilateral CC and MLO views were obtained. We are in the process of tryingto retrieve prior films from [facility]. Those are not available at thetime of [...] analyzed by the Computer Aided Detection system(CAD), [employer] ImageRicebookcker, Version 3.1. IMPRESSION: Incomplete. Obtain priors. If [...] documented as of this encounter Care Teams Buildings And Grounds Coordinator Relationship Specialty Start Date End Date Fabiola Soto MD [address] [phone] PCP - General Family Practice 05/27/13 documented as of this encounter
--- OUTSIDE RECORDS SUMMARY | 2025-02-16 17:09 | XMS_ITS | Encounter Summary ---
Author Organization [facility] Address [address] [place] [address] Care Team Providers Care Igniter Capper Name Role Phone Sánchez Macario MD Primary Care Provider [phone] Encounter Details Date Type Department Care Team [...] on file Legal Sex Female 9:22 AM TILE SPRAYER Gender Identity Not on file Sexual Orientation Not on file COVID-19 Exposure Response Date Recorded In the last month, have you been in contact with someone who was confirmed or suspected to have Coronavirus / COVID-19? Yes 05/18/2021 1:41 PM TILE SPRAYER documented as of this encounter Plan of Treatment Upcoming Encounters Date Type Department Care Team (Late st Contact Info) Description 02/17/2025 9:00 AM CDT Office Visit [facility] [address] [facility] [address] [place] [phone] Sarita Oro, [facility] [address] [facility] [address] [place] [phone] 04/29/2025 4:00 PM TILE SPRAYER Office Visit [facility] Medicine [address] [address] Sánchez Macario MD [address] [phone] documented as of this encounter Visit Diagnoses Not on filedocumented in this encounter Additional Health Concerns Infection Onset Date Last Indicated Resolved Time COVID-19 05/11/2021 05/11/2021 05/31/2021 2:22 AM TILE SPRAYER R/O Respiratory 06/07/2021 06/07/2021 06/07/2021 1 0:14 PM TILE SPRAYER COVID-19 04/18/2023 04/18/2023 05/08/2023 1:16 AM TILE SPRAYER R/O C. diff 09/04/2023 09/04/2023 09/04/2023 11:4 7 PM CDT R/O COVID-19 09/04/2023 09/04/2023 09/04/2023 6:46 PM CDT R/O COVID-19 11/11/2023 11/11/2023 11/11/2023 1:08 PM CDT Assessment Noted Time PHQ-9 Depression Total Score: 1 12/14/19 11:24 AM CDT documented as of this encounter Care Teams Igniter Capper Relationship Specialty Start Date End Date Sánchez Macario MD [address] [phone] PCP - General Family Practice 04/10/21 documented as of this encounter
--- OUTSIDE RECORDS SUMMARY | 2025-02-16 17:09 | XMS_ITS | Encounter Summary ---
Author Organization [facility] Address [address] [place] [address] Care Team Providers Care Chamber Walker Name Role Phone Sánchez Macario MD Primary Care Provider [phone] Encounter Details Date Type Department Care Team [...] any clubs o r organizations such as orthodox groups, unions, fraternal or athletic groups, or [...] on file Legal Sex Female 9:22 AM WATER SUPERINTENDENT Gender Identity Not on file Sexual Orientation Not on file COVID-19 Exposure Response Date Recorded In the last month, have you been in contact with someone who was confirmed or suspected to have Coronavirus / COVID-19? Yes 05/18/2021 1:41 PM WATER SUPERINTENDENT documented as of this encounter Plan of Treatment Upcoming Encounters Date Type Department Care Team (Late st Contact Info) Description 02/17/2025 9:00 AM CDT Office Visit [facility] [address] [facility] [address] [place] [phone] Sarita Oro, [facility] [address] [facility] [address] [place] [phone] 04/29/2025 4:00 PM WATER SUPERINTENDENT Office Visit [facility] Medicine [address] [phone] Sánchez Macario MD [address] [phone] documented as of this encounter Visit Diagnoses Not on filedocumented in this encounter Additional Health Concerns Infection Onset Date Last Indicated Resolved Time COVID-19 05/11/2021 05/11/2021 05/31/2021 2:22 AM WATER SUPERINTENDENT R/O Respiratory 06/07/2021 06/07/2021 06/07/2021 1 0:14 PM WATER SUPERINTENDENT COVID-19 04/18/2023 04/18/2023 05/08/2023 1:16 AM WATER SUPERINTENDENT R/O C. diff 09/04/2023 09/04/2023 09/04/2023 11:4 7 PM CDT R/O COVID-19 09/04/2023 09/04/2023 09/04/2023 6:46 PM CDT R/O COVID-19 11/11/2023 11/11/2023 11/11/2023 1:08 PM CDT Assessment Noted Time PHQ-9 Depression Total Score: 1 12/14/19 11:24 AM CDT documented as of this encounter Care Teams Chamber Walker Relationship Specialty Start Date End Date Sánchez Macario MD [address] [phone] PCP - General Family Practice 04/10/21 documented as of this encounter
--- OUTSIDE RECORDS SUMMARY | 2025-02-16 17:09 | XMS_ITS | Encounter Summary ---
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
--- OUTSIDE RECORDS SUMMARY | 2025-02-16 17:09 | XMS_ITS | Encounter Summary ---
Author Organization [facility] Address [address] [place] [address] Care Team Providers Care Valet Attendant Name Role Phone Sánchez Macario MD Primary Care Provider [phone] Encounter Details Date Type Department Care Team [...] any clubs o r organizations such as muslim groups, unions, fraternal or athletic groups, or [...] on file Legal Sex Female 9:22 AM OAKES MACHINE OPERATOR Gender Identity Not on file Sexual Orientation Not on file COVID-19 Exposure Response Date Recorded In the last month, have you been in contact with someone who was confirmed or suspected to have Coronavirus / COVID-19? Yes 05/18/2021 1:41 PM OAKES MACHINE OPERATOR documented as of this encounter Plan of Treatment Upcoming Encounters Date Type Department Care Team (Late st Contact Info) Description 02/17/2025 9:00 AM CDT Office Visit [facility] [address] [facility] [address] [place] [phone] Sarita Oro, [facility] [address] [facility] [address] [place] [phone] 04/29/2025 4:00 PM OAKES MACHINE OPERATOR Office Visit [facility] Medicine [address] [phone] Sánchez Macario MD [address] [phone] documented as of this encounter Visit Diagnoses Not on filedocumented in this encounter Additional Health Concerns Infection Onset Date Last Indicated Resolved Time COVID-19 05/11/2021 05/11/2021 05/31/2021 2:22 AM OAKES MACHINE OPERATOR R/O Respiratory 06/07/2021 06/07/2021 06/07/2021 1 0:14 PM OAKES MACHINE OPERATOR COVID-19 04/18/2023 04/18/2023 05/08/2023 1:16 AM OAKES MACHINE OPERATOR R/O C. diff 09/04/2023 09/04/2023 09/04/2023 11:4 7 PM CDT R/O COVID-19 09/04/2023 09/04/2023 09/04/2023 6:46 PM CDT R/O COVID-19 11/11/2023 11/11/2023 11/11/2023 1:08 PM CDT Assessment Noted Time PHQ-9 Depression Total Score: 1 12/14/19 11:24 AM CDT documented as of this encounter Care Teams Valet Attendant Relationship Specialty Start Date End Date Sánchez Macario MD [address] [phone] PCP - General Family Practice 04/10/21 documented as of this encounter
--- OUTSIDE RECORDS SUMMARY | 2025-02-16 17:09 | XMS_ITS | Encounter Summary ---
Author Organization [facility] Address [address] [place] [address] Care Team Providers Care Special Certificate Dictator Name Role Phone Sánchez Macario MD Primary Care Provider +1 [phone] Encounter Details Date Type Department Care Team [...] on file Legal Sex Female 9:22 AM ENDODONTIST Gender Identity Not on file Sexual Orientation Not on file COVID-19 Exposure Response Date Recorded In the last month, have you been in contact with someone who was confirmed or suspected to have Coronavirus / COVID-19? Yes 05/18/2021 1:41 PM ENDODONTIST documented as of this encounter Plan of Treatment Upcoming Encounters Date Type Department Care Team (Late st Contact Info) Description 02/17/2025 9:00 AM CDT Office Visit [facility] [address] [facility] [address] [place] [address] Sarita Oro, [facility] [address] [facility] [address] [place] [address] 04/29/2025 4:00 PM ENDODONTIST Office Visit [facility] [address] [address] Sánchez Macario MD [address] [address] documented as of this encounter Visit Diagnoses Not on filedocumented in this encounter Additional Health Concerns Infection Onset Date Last Indicated Resolved Time COVID-19 05/11/2021 05/11/2021 05/31/2021 2:22 AM ENDODONTIST R/O Respiratory 06/07/2021 06/07/2021 06/07/2021 1 0:14 PM ENDODONTIST COVID-19 04/18/2023 04/18/2023 05/08/2023 1:16 AM ENDODONTIST R/O C. diff 09/04/2023 09/04/2023 09/04/2023 11:4 7 PM CDT R/O COVID-19 09/04/2023 09/04/2023 09/04/2023 6:46 PM CDT R/O COVID-19 11/11/2023 11/11/2023 11/11/2023 1:08 PM CDT Assessment Noted Time PHQ-9 Depression Total Score: 1 12/14/19 11:24 AM CDT documented as of this encounter Care Teams Special Certificate Dictator Relationship Specialty Start Date End Date Sánchez Macario MD [address] [address] PCP - General Family Practice 04/10/21 documented as of this encounter
--- OUTSIDE RECORDS SUMMARY | 2025-02-16 17:09 | XMS_ITS | Encounter Summary ---
Author Organization [facility] Address [address] [place] [address] Care Team Providers Care Rapid Transit Operator Name Role Phone Sánchez Macario MD Primary Care Provider +1 [phone] Encounter Details Date Type Department Care Team [...] often do you attend chur ch or pentecostalism services? Never 01/05/2020 Do you belong to [...] on file Legal Sex Female 9:22 AM FIRE EXTINGUISHER CHARGER Gender Identity Not on file Sexual Orientation Not on file COVID-19 Exposure Response Date Recorded In the last month, have you been in contact with someone who was confirmed or suspected to have Coronavirus / COVID-19? Yes 05/18/2021 1:41 PM FIRE EXTINGUISHER CHARGER documented as of this encounter Plan of Treatment Upcoming Encounters Date Type Department Care Team (Late st Contact Info) Description 02/17/2025 9:00 AM CDT Office Visit [facility] [address] [facility] [address] [place] [address] Sarita Oro, [facility] [address] [facility] [address] [place] [address] 04/29/2025 4:00 PM FIRE EXTINGUISHER CHARGER Office Visit [facility] [address] [address] Sánchez Macario MD [address] [address] documented as of this encounter Visit Diagnoses Not on filedocumented in this encounter Additional Health Concerns Infection Onset Date Last Indicated Resolved Time COVID-19 05/11/2021 05/11/2021 05/31/2021 2:22 AM FIRE EXTINGUISHER CHARGER R/O Respiratory 06/07/2021 06/07/2021 06/07/2021 1 0:14 PM FIRE EXTINGUISHER CHARGER COVID-19 04/18/2023 04/18/2023 05/08/2023 1:16 AM FIRE EXTINGUISHER CHARGER R/O C. diff 09/04/2023 09/04/2023 09/04/2023 11:4 7 PM CDT R/O COVID-19 09/04/2023 09/04/2023 09/04/2023 6:46 PM CDT R/O COVID-19 11/11/2023 11/11/2023 11/11/2023 1:08 PM CDT Assessment Noted Time PHQ-9 Depression Total Score: 1 12/14/19 11:24 AM CDT documented as of this encounter Care Teams Rapid Transit Operator Relationship Specialty Start Date End Date Sánchez Macario MD [address] [address] PCP - General Family Practice 04/10/21 documented as of this encounter
--- OUTSIDE RECORDS SUMMARY | 2025-02-16 17:09 | XMS_ITS | Clinical Summary ---
Author Organization [facility] Address [address] [place] [address] [address] [place] [address] Care Team Providers Care District Loss Prevention Manager Name Role Phone Sánchez Macario MD Primary Care Provider [phone] [phone] Allergies Active Allergy Reactions Criticality Noted Date [...] lower extremity,Postoper ative pulmonary embolism, subsequent encounter ([facility]) Bath step for entrance to [...] Anxiety. 30 Tablet 5 10/22/19 24 Active fluticasone propion-salmeteroL (ADVAIR DISKUS,WIXELA INHUB) [...] for Pain. 10 Tablet 5 2:49 PM CUTTING AND SPLICING SUPERVISOR 06/04/19 25 Active ondansetron (ZOFRAN ODT) 4 mg Tablet, Rapid Dissolve Take 1 Tablet (4 mg) by mouth every 8 hours as needed for Nausea/Emesis. Dissolve tablet on top of tongue, then swallow with saliva. 10 Tablet 1 5 2:49 PM CUTTING AND SPLICING SUPERVISOR 06/04/19 25 Active levothyroxine 137 mcg tabletIndications: [...] DAILY IN THE EVENING 150 Tablet 01/06/20 25 Active budesonide (PULMICORT RESPULE) 0.5 mg/2 mL Suspension for Nebulization Take 2 mL (0.5 mg) by inhalation 2 times daily. 60 mL 5 02/12/20 25 Active budesonide (PULMICORT RESPULE) 0.5 mg/2 mL Suspension for Nebulization Take 2 mL (0.5 mg) by inhalation 2 times daily. 60 mL 11 01/19/20 24 025 Discontin ued(Reord er) Active Problems Problem Noted Date Diagnosed Date [...] from 03/27/2024:Stage IIIB(cT3, cN0, cM0, G3, ER-, CT-, HER2-) - Signed by Vale Palacios DO on 03/27/2024 Pathologic stage from 06/08/2024:Stage IIIA(pT3, pN0(sn), cM0, G3, ER-, CT-, HER2-) - Signed by Cristina Soto MD [...] Overview (08/18/2020): ADDED PER PVQ RESPONSE DOS 01.05.2020 Personal [...] Encounters Date Type Department Care Team Description 02/11/2025 Telephone [facility] [place] [address] [address] Sánchez Macario MD Patient Communication 02/11/[address] [address] Sánchez Macario MD 02/08/2025 Telephone [facility] [address] [place] [address] Sarita Oro, [facility] Information 02/01/2025 Orders Only [facility] [address] [place] [address] Provider, Abstract 01/28/2025 - 01/28/2025 11:59 PM CDT Hospital Encounter [facility] [place] [address] [place] [address] Ambulance, [facility] Discharge Disposition: [facility] 01/26/2025 Orders Only [facility] Health Information Management [place] [address] [place] [address] Provider, Abstract 01/22/2025 - 01/22/2025 11:59 PM CDT Hospital Encounter [facility] [place] [id number] [place] [address] Ambulance, [facility] Discharge Disposition: [facility] 01/18/2025 External Device Data ST[facility] ABSTRACTION Provider, Abstract 01/17/[address] [address] Provider, Abstract 01/04/[address] [address] Sánchez Macario MD 12/22/2024 External Device Data [place] ABSTRACTION Provider, Abstract 12/14/2024 External Device Data [place] ABSTRACTION Provider, Abstract 11/26/[address] [address] Sánchez Macario MD Seasonal affective disorder 11/16/2024 External Device Data [place] ABSTRACTION Provider, Abstract from Last 3 Months Immunizations Immunization Administration Dates Next Due (PREVNAR 20)(6 WKS UP) PNEUM OCOCCAL CONJUGATE VACCINE 20-VALENT (PCV20), POLYSACCHARIDE [id number] CONJUGATE, ADJUVANT 0.5 ML (PF) IM 07/06/2024 [...] any clubs o r organizations such as judaism groups, unions, fraternal or athletic groups, or [...] Master's degree (e.g., MA, MS, Omid, MEd, EYEGLASS FRAMES INSPECTOR, TYSHAWN) 06/05/2021 Comments No Sex and Gender Information Value Date Recorded Sex Assigned at Not on file Legal Sex Female 9:22 AM CUTTING AND SPLICING SUPERVISOR Gender Identity Not on file Sexual [...] Description 02/17/2025 9:00 AM CDT Office Visit [facility] [address] [facility] [address] [place] [address] Sarita Oro, [facility] [address] [facility] [address] [place] [address] 04/29/2025 4:00 PM CUTTING AND SPLICING SUPERVISOR Office Visit [facility] [address] [address] Sánchez Macario MD [address] [address] Health Maintenance Due Date Last [...] years Discontinued Medical Devices Implanted Type Area Service Administrator Device Identifier Shelf Expiration Date Model / Serial / Lot Clip Ligating Horizon Red 053116 - Csc - [id number] Implanted:Qty: 1 on 06/03/2024 by Vale Palacios DO at [facility] Clip Left: Breast TELE[employer] [id number] 02/04/2029 [id number] / / [id number] Clip Ligating Horizon Med Ti 004006 - Csc - [id number] Implanted:Qty: 1 on 06/03/2024 by Vale Palacios DO at [facility] Clip Left: Breast TELEFLEX- WECK CLOSURE SYS [id number] 02/04/2029 498261 / / [id number] Clip Ligating Horizon Sm 744155 - [id number] Implanted:Qty: 1 on 06/03/2024 by Vale Palacios DO at [facility] Clip Left: Breast TELE[employer]LEX [employer] [id number] 12/30/2026 [id number] / / [id number] Clip Ligating Horizon Med Ti 533176 - Csc - [id number] Implanted:Qty: 1 on 06/03/2024 by Vale Palacios DO at [facility] Clip Left: Breast TELEFLEX- WECK CLOSURE SYS [id number] 11/23/2028 413878 / / [id number] Clip Ligating Horizon Med Ti 128589 - Csc - [id number] Implanted:Qty: 1 on 06/03/2024 by Vale Palacios DO at [facility] Clip Left: Breast TELEFLEX- WECK CLOSURE SYS [id number] 01/06/2029 448364 / / [id number] Closure Perclose Prostyle Sut Mediate 09390-31 - [id number] Implanted:Qty: 1 on 02/17/2024 by Gallito Lance MD at [facility] Closure Device Right: Groin FLYNN- VASC DEVICE [id number] 11/18/2025 90602-29 / / [id number] Closure Perclose Prostyle Sut Mediate 54406-23 - [id number] Implanted:Qty: 1 on 02/17/2024 by Gallito Lance MD at [facility] Closure Device Right: Groin FLYNN- VASC DEVICE [id number] 11/18/2025 56899-62 / / [id number] Closure Perclose Prostyle Sut Mediate 56986-22 - [id number] Implanted:Qty: 1 on 02/17/2024 by Gallito Lance MD at [facility] Closure Device Right: Groin FLYNN- VASC DEVICE [id number] 11/18/2025 49860-97 / / [id number] Dev Closure Angioseal 6fr Vip 353968 - [id number] Implanted:Qty: 1 on 02/17/2024 by Gallito Lance MD at [facility] Closure Device Left: Groin TERUMO- CARDIOVASC SYS 09/24/2024 084290 / / [id number] Vlv Aort Evolut Fx Tavr 26mm Evolutfx-26 - [id number] Implanted:Qty: 1 on 02/17/2024 by Gallito Lance MD at [facility] Valve Left: Heart MEDTRONIC- HEART VALVE [id number] 07/06/2025 EVOLUTFX -26 / [id number] / Procedures Procedure Name Priority Date/Time Associated [...] clinical management available online at [email or web address]/. Enter Wizer for Select DXA and the Femoral Neck [...] clinical management available online at www.shef.[email or web address]/FRAX/. Enter Wizer for Select DXA and the Femoral Neck BMD value. Sánchez Macario MD DIAGNOSTIC IMAGING ORDERA BLES Final Result * COLON CANCER SCREEN, STOOL DNA (12/26/2020 2:45 PM CDT) [facility] COLOGUARD RESULT Negative Negative Kickfire Comment: NEGATIVE TEST RESULT. A negative Cologuard [...] Christopher et al, N Engl J Med 2014;370(14):3865-6629) The normal value (reference range) for this assay is negative. COLOGUARD RE-SCREENING RECOMMENDATION: Periodic colorectal cancer screening is an important part of preventive healthcare for asymptomatic individuals at average risk for colorectal cancer. Following a negative Cologuard result, the [place] Cancer Society and U.S. Multi-Society Task Force screening guidelines recommend a Cologuard re-screening interval of 3 years. References: [place] Cancer Society Guideline for Colorectal Cancer Screening: https://www.cancer.org/cancer/necti-dxzmgs-hakeja/kewzxgbgg-ezkgphxvr-whtprmh/ac s-rec ommendations.html.; Varun DK, May CR, Denisse JassoK, Colorectal Cancer Screening: Recommendations for Physicians and Patients from the U.S. Multi-Society Task Force on Colorectal Cancer Screening , Am J Gastroenterology 2017; 112:1058-3110. TEST DESCRIPTION: Composite algorithmic analysis of stool [...] (Piotr Rosario al, N Engl J Med 2014;370(14):7636-8879.) Cologuard may produce a false negative or false positive result (no colorectal cancer or precancerous polyp present at colonoscopy follow up). A negative Cologuard test result does not guarantee the absence of CRC or advanced adenoma (pre-cancer). The current Cologuard screening interval is every 3 years. ([place] Cancer Society and U.S. Multi-Society Task Force). Cologuard performance data in a 10,000 patient pivotal study using colonoscopy as the reference method can be accessed at the following location: www.Airspan.Perfect Pizza/results. Additional description of the Cologuard test process, warnings and precautions can be found at www.Product Hunt.com. Stool STOOL SPECIMEN / Unknown 12/26/2020 2:45 PM CDT 12/28/2020 12:18 AM CDT Jorgito RIVERA BODY FLUIDS AND STOOLS Final Result [facility] CLIA # [id number] [address] , [address] [place] [address] from Last 3 Months or Most Recently Relevant to Health Maintenance Insurance [place] Member Subscriber Plan / Payer (Ef fective 2020-Present) Name:Janet Calvillo Relation to Subscriber:Self Name:Janet Calvillo Payer ID:Not on file Group ID:Not on file Type:Medicaid Address: [address] DUAL ADVANTAGE O [facility] Medicare Part D Advance Directives For more information, please contact: [phone] Documents on File Type Date Recorded Patient Blending Tank Tender Expl anation Advance Directive POA 06/17/2016 12:16 [...] 2:42 AM 06/07/2021 6:46 PM Care Teams District Loss Prevention Manager Relationship Specialty Start Date End Date Sánchez Macario MD [address] [phone] PCP - General Family Practice 04/10/21
--- OUTSIDE RECORDS SUMMARY | 2025-02-16 17:09 | XMS_ITS | Encounter Summary ---
Author Organization [facility] Address [address] [place] [address] Care Team Providers Care Interior Design Coordinator Name Role Phone Sánchez Macario MD Primary Care Provider +1 -[phone] Encounter Details Date Type Department Care Team [...] any clubs o r organizations such as hoahaoism groups, unions, fraternal or athletic groups, or [...] on file Legal Sex Female 9:22 AM PASTRY SUPERVISOR Gender Identity Not on file Sexual Orientation Not on file COVID-19 Exposure Response Date Recorded In the last month, have you been in contact with someone who was confirmed or suspected to have Coronavirus / COVID-19? No / Unsure 05/11/2021 10:11 AM PASTRY SUPERVISOR documented as of this encounter Plan of Treatment Upcoming Encounters Date Type Department Care Team (Late st Contact Info) Description 02/17/2025 9:00 AM CDT Office Visit [facility] [address] [facility] [address] [place] [address] Sarita Oro, [facility] [address] [facility] [address] [place] [address] 04/29/2025 4:00 PM PASTRY SUPERVISOR Office Visit [facility] [address] [address] Sánchez Macario MD [address] [address] documented as of this encounter Visit Diagnoses Not on filedocumented in this encounter Additional Health Concerns Infection Onset Date Last Indicated Resolved Time COVID-19 05/11/2021 05/11/2021 05/31/2021 2:22 AM PASTRY SUPERVISOR R/O Respiratory 06/07/2021 06/07/2021 06/07/2021 1 0:14 PM PASTRY SUPERVISOR COVID-19 04/18/2023 04/18/2023 05/08/2023 1:16 AM PASTRY SUPERVISOR R/O C. diff 09/04/2023 09/04/2023 09/04/2023 11:4 7 PM CDT R/O COVID-19 09/04/2023 09/04/2023 09/04/2023 6:46 PM CDT R/O COVID-19 11/11/2023 11/11/2023 11/11/2023 1:08 PM CDT Assessment Noted Time PHQ-9 Depression Total Score: 1 12/14/19 11:24 AM CDT documented as of this encounter Care Teams Interior Design Coordinator Relationship Specialty Start Date End Date Sánchez Macario MD [address] [address] PCP - General Family Practice 04/10/21 documented as of this encounter
--- OUTSIDE RECORDS SUMMARY | 2025-02-16 17:09 | XMS_ITS ---
Author Organization [facility] Address [address] [place] [address] [address] [place] [address] Care Team Providers Care Masseur/Masseuse Name Role Phone Sánchez Macario MD Primary Care Provider +1 -[phone] Active Problems Problem Noted Date Diagnosed Date [...]
--- OUTSIDE RECORDS SUMMARY | 2025-02-16 17:09 | XMS_ITS | Clinical Summary ---
Author Organization [facility] Address [address] [place] [address] [address] [place] [address] Care Team Providers Care Art Studio Teacher Name Role Phone Fabiola Soto MD Primary Care Provider [phone]- [phone] Allergies Active Allergy Reactions Criticality Noted Date [...] lower extremity,Posto perative pulmonary embolism, subsequent encounter ([facility]) Bath step for [...] any clubs o r organizations such as latter-day groups, unions, fraternal or athletic groups, or [...] Master's degree (e.g., MA, MS, Omid, MEd, SCIENTIFIC ASSOCIATE, TYSHAWN) 01/05/2020 Comments No Sex and Gender Information Value Date Recorded Sex Assigned at Not on file Legal Sex Female 5:07 AM SAP SECURITY CONSULTANT Gender Identity Not on file Sexual Orientation [...] - 1-dose 75+ series) 07/09/2015 [place]) Preventative Visit/Annual Wellness Visit 04/21/2024 01/05/2020, 12/23/2018, [...] clinical management available online at www.[email or web address]/. Enter Safehis for Select DXA and the Femoral Neck [...] clinical management available online at www.shef.[email or web address]/FRAX/. Enter Safehis for Select DXA and the Femoral Neck BMD value. us Jorgito RIVERA DIAGNOSTIC IMAGING ORDERABLES Final Result from Last 3 Months or Most Recently Relevant to Health Maintenance Insurance [place] BCBS M[place] Advance Directives For more information, please contact: [phone] Documents on File Type Date Recorded Patient Fortune Cookie Maker Expl anation Advance Directive POA 06/17/2016 12:15 PM Advance Directive POA Care Teams Art Studio Teacher Relationship Specialty Start Date End Date Fabiola Soto MD [address] [phone] PCP - General Family Practice 05/27/13
--- OUTSIDE RECORDS SUMMARY | 2025-02-16 17:09 | XMS_ITS | Encounter Summary ---
Author Organization [facility] Address [address] [place] [address] Care Team Providers Care Fast Food Crew Lead Name Role Phone Sánchez Macario MD Primary Care Provider +1 [phone] Encounter Details Date Type Department Care Team [...] often do you attend chur ch or buddhist services? Never 01/05/2020 Do you belong to [...] on file Legal Sex Female 9:22 AM OPERATING ENGINEER Gender Identity Not on file Sexual Orientation Not on file COVID-19 Exposure Response Date Recorded In the last month, have you been in contact with someone who was confirmed or suspected to have Coronavirus / COVID-19? No / Unsure 05/11/2021 10:11 AM OPERATING ENGINEER documented as of this encounter Plan of Treatment Upcoming Encounters Date Type Department Care Team (Late st Contact Info) Description 02/17/2025 9:00 AM CDT Office Visit [facility] [address] [facility] [address] [place] [address] Sarita Oro, [facility] [address] [facility] [address] [place] [address] 04/29/2025 4:00 PM OPERATING ENGINEER Office Visit [facility] [address] [address] Sánchez Macario MD [address] [address] documented as of this encounter Visit Diagnoses Not on filedocumented in this encounter Additional Health Concerns Infection Onset Date Last Indicated Resolved Time COVID-19 05/11/2021 05/11/2021 05/31/2021 2:22 AM OPERATING ENGINEER R/O Respiratory 06/07/2021 06/07/2021 06/07/2021 1 0:14 PM OPERATING ENGINEER COVID-19 04/18/2023 04/18/2023 05/08/2023 1:16 AM OPERATING ENGINEER R/O C. diff 09/04/2023 09/04/2023 09/04/2023 11:4 7 PM CDT R/O COVID-19 09/04/2023 09/04/2023 09/04/2023 6:46 PM CDT R/O COVID-19 11/11/2023 11/11/2023 11/11/2023 1:08 PM CDT Assessment Noted Time PHQ-9 Depression Total Score: 1 12/14/19 11:24 AM CDT documented as of this encounter Care Teams Fast Food Crew Lead Relationship Specialty Start Date End Date Sánchez Macario MD [address] [address] PCP - General Family Practice 04/10/21 documented as of this encounter
--- OUTSIDE RECORDS SUMMARY | 2025-02-16 17:09 | XMS_ITS | Encounter Summary ---
Author Organization [facility] Address [address] [place] [address] Care Team Providers Care Residential Door Unit Installer Name Role Phone Fabiola Soto MD Primary Care Provider [phone]- [phone] Encounter Details Date Type Department Care Team (Late st Contact Info) Description 09/07/2011 Ancillary Orders [facility] General Laboratory Services [place] [address] [place] [address] Social History Tobacco Use Types Packs/Day Years Used Date Smoking Tobacco: Never Smokeless Tobacco: Never Alcohol Use Standard Drinks/Week Comments Yes 4.2 (1 standard drink = 0.6 oz p ure alcohol) month Comments No Sex and Gender Information Value Date Recorded Sex Assigned at Not on file Legal Sex Female 5:07 AM MEAT SOAKER Gender Identity Not on file Sexual Orientation [...] - 10.0 K/uL 09/07/2011 3:07 PM CDT [facility] [place] RBC 4.32 3.93 - 5.22 M/uL 09/07/2011 3:07 PM CDT [facility] [place] HEMOGLOBIN 13.3 11.2 - 15.7 g/dL 09/07/2011 3:07 PM CDT [facility] [place] HEMATOCRIT 40.3 34.1 - 44.9 % 09/07/2011 3:07 PM CDT [facility] [place] MCV 93.3 79.4 - 94.8 fL 09/07/2011 3:07 PM CDT [facility] [place] MCH 30.8 25.6 - 32.2 pg 09/07/2011 3:07 PM CDT [facility] [employer] [facility] [place] MCHC 33.0 32.2 - 35.5 g/dL 09/07/2011 3:07 PM CDT [employer] [facility] [facility] [place] RDW 13.8 11.0 - 14.5 % 09/07/2011 3:07 PM CDT [employer] [facility] [employer] [facility] [place] RDW-STDEV 46.0 fL 09/07/2011 3:07 PM CDT [facility] [place] PLATELETS 227 163 - 337 K/uL 09/07/2011 3:07 PM CDT [employer] [facility] [employer] [facility] [place] MPV 12.1 10.0 - 14.8 fL 09/07/2011 3:07 PM CDT [facility] [employer] [facility] [place] NEUTROPHILS 70 34 - 71 % 09/07/2011 3:07 PM CDT [facility] [employer] [facility] [place] LYMPHOCYTES 17(L) 19 - 52 % 09/07/2011 3:07 PM CDT [facility] [place] MONOCYTES 9 5 - 13 % 09/07/2011 3:07 PM CDT [facility] [place] EOSINOPHILS 5 1 - 6 % 09/07/2011 3:07 PM CDT [facility] [place] BASOPHILS 1 0 - 1 % 09/07/2011 3:07 PM CDT [employer] [facility] [facility] [place] NEUTROPHIL ABSOLUTE 4.38 1.56 - 6.13 K/uL 09/07/2011 3:07 PM CDT [employer] [facility] [employer] [facility] [place] LYMPHOCYTE ABSOLUTE 1.05(L) 1.20 - 3.40 K/uL 09/07/2011 3:07 PM CDT [facility] LABORATORY [facility] [place] MONOCYTE ABSOLUTE 0.54(H) 0.24 - 0.36 K/uL 09/07/2011 3:07 PM CDT [facility] LABORATORY [facility] [place] EOSINOPHIL ABSOLUTE 0.29 0.04 - 0.36 K/uL 09/07/2011 3:07 PM CDT [facility] LABORATORY [facility] [place] BASOPHILS ABSOLUTE 0.03 0.01 - 0.08 K/uL 09/07/2011 3:07 PM CDT [facility] LABORATORY [facility] [place] Blood specimen (specimen) 09/07/2011 8:10 AM CDT 09/07/2011 9:21 AM CDT Phillyrupesh Sotomayorray MUS[employer]ER HEMATOLOGY ORDERA BLES Final Result [facility] [place] CLIA # [id number] [address] [place] [address] * (ABNORMAL) COMPREHENSIVE METABOLIC PANEL (09/07/2011 8:10 AM CDT) SODIUM 141 136 - 145 mmol/L 09/07/2011 5:18 PM CDT [facility] [place] POTASSIUM 3.8 3.5 - 5.1 mmol/L 09/07/2011 5:18 PM CDT [facility] [place] CHLORIDE 106 98 - 107 mmol/L 09/07/2011 5:18 PM CDT [facility] LABORATORY [facility] [place] CO2 25 21 - 32 mmol/L 09/07/2011 5:18 PM CDT [facility] LABORATORY [facility] [place] CALCIUM 9.1 8.5 - 10.1 mg/dL 09/07/2011 5:18 PM CDT [facility] LABORATORY [facility] [place] BUN 17 7 - 18 mg/dL 09/07/2011 5:18 PM CDT [facility] LABORATORY [facility] [place] CREATININE 0.80 0.60 - 1.30 mg/dL 09/07/2011 5:18 PM CDT [facility] LABORATORY [facility] [place] GLUCOSE 74 74 - 106 mg/dL 09/07/2011 5:18 PM CDT [facility] LABORATORY [facility] TOTAL PROTEIN 6.6 6.4 - 8.2 g/dL 09/07/2011 5:18 PM CDT [facility] ALBUMIN 3.3(L) 3.4 - 5.0 g/dL 09/07/2011 5:18 PM CDT [facility] BILIRUBIN TOTAL 0.3 0.2 - 1.0 mg/dL 09/07/2011 5:18 PM CDT [facility] ALKALINE PHOSPHATASE 110 50 - 136 U/L 09/07/2011 5:18 PM T [facility] AST 15 15 - 37 U/L 09/07/2011 5:18 PM CDT [facility] ALT 32 30 - 65 U/L 09/07/2011 5:18 PM CDT [facility] GFR 71 >=60 mL/min/1.7 3 sq meter 09/07/2011 5:18 PM T [facility] GFR, 86 >=60 mL/min/1.7 3 sq meter 09/07/2011 5:18 PM T [facility] Blood specimen (specimen) 09/07/2011 8:10 AM CDT 09/07/2011 9:21 AM CDT Narrative [facility] - 09/07/2011 5:18 PM CDT eGFR has [...] Darling APRN CHEMISTRY ORDERAB LES Final Result [facility] CLIA # [id number] 100 [facility] [address] [place] [address] * (ABNORMAL) LIPID PANEL (09/07/2011 8:10 AM CDT) [facility] Signature CHOLESTEROL 204(H) 130 - 200 mg/dL 09/07/2011 5:18 PM CDT [facility] LABORATORY [facility] [place] TRIGLYCERIDE 130 30 - 200 mg/dL 09/07/2011 5:18 PM CDT [facility] HDL 44 35 - 80 mg/dL 09/07/2011 5:18 PM CDT [facility] LDL CALCULATED 134(H) 0 - 100 mg/dL 09/07/2011 5:18 PM CDT [facility] Blood specimen (specimen) 09/07/2011 8:10 AM CDT 09/07/2011 9:21 AM CDT Narrative [facility] LABORATORY [facility] - 09/07/2011 5:18 PM CDT TOTAL CHOLESTEROL [...] ORDERAB LES Final Result Performing Organization Address City/[facility]/ZIP Co de Phone Number [facility] CLIA # [id number] [address] [place] [address] * FERRITIN (09/07/2011 8:10 AM CDT) FERRITIN 81.0 8.0 - 252.0 ng/mL 09/07/2011 6:41 PM CDT [facility] [email or web address] [facility] Blood specimen (specimen) 09/07/2011 8:10 AM CDT 09/07/2011 9:21 AM CDT [facility] MUSIC MIXER CHEMISTRY ORDERAB LES Final Result Performing Organization Address City/[facility]/ZIP Co de Phone Number [facility] CLIA # [id number] [address] [place] [address] * IRON LEVEL (09/07/2011 8:10 AM CDT) IRON 58 50 - 170 ug/dL 09/07/2011 6:41 PM CDT [facility] LABORATORY [facility] Blood specimen (specimen) 09/07/2011 8:10 AM CDT 09/07/2011 9:21 AM CDT Philly Darling MUSIC MIXER CHEMISTRY ORDERAB LES Final Result [facility] LABORATORY [facility] CLIA # [id number] [address] [address] documented in this encounter Visit Diagnoses Not on filedocumented in this encounter Additional Health Concerns Infection Onset Date Last Indicated Resolved Time R/O C. diff 10/16/2020 10/16/2020 10/16/2020 11:1 0 AM CDT documented as of this encounter Care Teams Residential Door Unit Installer Relationship Specialty Start Date End Date Fabiola Soto MD [address] [address] PCP - General Family Practice 05/27/13 documented as of this encounter
--- OUTSIDE RECORDS SUMMARY | 2025-02-16 17:09 | XMS_ITS | Encounter Summary ---
Author Organization [facility] Address [address] [place] [address] Care Team Providers Care General Labor Forklift Operator Name Role Phone Fabiola Soto MD Primary Care Provider [phone]- [phone] Encounter Details Date Type Department Care Team (Late st Contact Info) Description 04/22/2006 Outpatient Historical [facility] [address] [place] [address] AMBULANCE, [facility] Headache (Primary Dx) Social History Tobacco Use Types Packs/Day Years Used Date Smoking Tobacco: Never Assessed Comments Unknown Sex and Gender Information Value Date Recorded Sex Assigned at Not on file Legal Sex Female 5:07 AM FRAME SAMPLE AND PATTERN SUPERVISOR Gender Identity Not on file Sexual [...] documented as of this encounter Care Teams General Labor Forklift Operator Relationship Specialty Start Date End Date Fabiola Soto MD [address] [facility] [address] [place] [id number] PCP - General Family Practice 05/27/13 documented as of this encounter
--- OUTSIDE RECORDS SUMMARY | 2025-02-16 17:09 | XMS_ITS | Encounter Summary ---
Author Organization [facility] Address [address] [place] [address] Care Team Providers Care Darkroom Technician Name Role Phone Fabiola Soto MD Primary Care Provider [phone] Encounter Details Date Type Department Care Team (Late st Contact Info) Description 09/18/2013 Ancillary Orders [facility] General Laboratory Services [place] [address] [place] [address] Social History Tobacco Use Types Packs/Day Years Used Date Smoking Tobacco: Never Smokeless Tobacco: Never Alcohol Use Standard Drinks/Week Comments No 0 (1 standard drink = 0.6 oz pur e alcohol) Comments No Sex and Gender Information Value Date Recorded Sex Assigned at Not on file Legal Sex Female 5:07 AM WET PAN OPERATOR Gender Identity Not on file Sexual [...] - 170 ug/dL 09/18/2013 5:21 PM CDT [facility] [employer] [facility] Blood Collection / Unknown 09/18/2013 12:03 PM CDT 09/18/2013 12:03 PM CDT External Provider Mtnv CHEMISTRY ORDERABLES Jihan l Result Performing Organization Address [facility] Co de Phone Number [facility] [employer] [facility] CLIA # [id number] [address] [place] [address] * CREATININE (09/18/2013 12:03 PM CDT) Pathologist [facility] CREATININE 1.10 0.60 - 1.30 mg/dL 09/18/2013 1:41 PM CDT [facility] [employer] [facility] GFR 49 mL/min/1.7 3 sq meter 09/18/2013 1:41 PM CDT [facility] [employer] [facility] Comment: The GFR result is not clinically significant on patients <18 or >70 years of age. GFR, 59 mL/min/1.7 3 sq meter 09/18/2013 1:41 PM CDT [facility] [employer] [facility] Blood Collection / Unknown 09/18/2013 12:03 PM CDT 09/18/2013 12:03 PM CDT us External Provider Mtn[employer] CHEMISTRY ORDERABLES Jihan l Result Performing Organization Address City/[facility]/ZIP Co de Phone Number [facility] CLIA # [id number] [address] [place] [address] * (ABNORMAL) ALT (09/18/2013 12:03 PM CDT) ALT 20(L) 30 - 65 U/L 09/18/2013 1:41 PM CDT [facility] [employer] [facility] [place] Blood Collection / Unknown 09/18/2013 12:03 PM CDT 09/18/2013 12:03 PM CDT us External Provider Mtnv CHEMISTRY ORDERABLES Jihan priya Result [facility] [facility] - [place] CLIA # [id number] 100 [facility] 60 [place] [address] * (ABNORMAL) CBC WITH DIFFERENTIAL (09/18/2013 12:03 PM CDT) WBC 5.7 4.0 - 10.0 K/uL 09/18/2013 12:21 PM CDT [facility] [place] RBC 4.44 3.93 - 5.22 M/uL 09/18/2013 12:21 PM CDT [facility] [facility] [place] HEMOGLOBIN 13.6 11.2 - 15.7 g/dL 09/18/2013 12:21 PM CDT [facility] [place] HEMATOCRIT 41.5 34.1 - 44.9 % 09/18/2013 12:21 PM CDT [facility] [place] MCV 93.5 79.4 - 94.8 fL 09/18/2013 12:21 PM CDT [facility] [place] MCH 30.6 25.6 - 32.2 pg 09/18/2013 12:21 PM CDT [facility] [place] MCHC 32.8 32.2 - 35.5 g/dL 09/18/2013 12:21 PM CDT [facility] [place] RDW 13.4 11.0 - 14.5 % 09/18/2013 12:21 PM CDT [employer] [facility] - [place] RDW-STDEV 44.1 36.9 - 56.9 fL 09/18/2013 12:21 PM CDT [facility] [place] PLATELETS 242 163 - 337 K/uL 09/18/2013 12:21 PM CDT [employer] [facility] [place] MPV 12.2 10.0 - 14.8 fL 09/18/2013 12:21 PM CDT [employer] [facility] [place] NEUTROPHILS 63 34 - 71 % 09/18/2013 12:21 PM CDT [facility] [place] LYMPHOCYTES 21 19 - 52 % 09/18/2013 12:21 PM CDT [facility]ORY [facility] [place] MONOCYTES 10 5 - 13 % 09/18/2013 12:21 PM [facility]T [facility] [place] EOSINOPHILS 4 1 - 6 % 09/18/2013 12:21 PM CDT [facility]ORY [facility] [place] BASOPHILS 1 0 - 1 % 09/18/2013 12:21 PM CDT [facility] [place] NEUTROPHIL ABSOLUTE 3.63 1.56 - 6.13 K/uL 09/18/2013 12:21 PM CDT [facility] LAB[facility]ATORY SERVICES - [place] LYMPHOCYTE ABSOLUTE 1.21 1.20 - 3.40 K/uL 09/18/2013 12:21 PM CDT [facility]ATORY [facility] - [place] MONOCYTE ABSOLUTE 0.59(H) 0.24 - 0.36 K/uL 09/18/2013 12:21 PM CDT [facility]ORY [facility] [place] EOSINOPHIL ABSOLUTE 0.22 0.04 - 0.36 K/uL 09/18/2013 12:21 PM CDT [facility] [place] BASOPHILS ABSOLUTE 0.08 0.01 - 0.08 K/uL 09/18/2013 12:21 PM CDT [facility] LAB[facility]ATORY [facility] - [place] IMMATURE GRANULOCYTES 0 % 09/18/2013 12:21 PM CDT [facility] LAB[facility]ATORY [facility] - [place] IMMATURE GRANULOCYTES ABSOLUTE 0.00 K/uL 09/18/2013 12:21 PM CDT [facility] [place] Blood Collection / Unknown 09/18/2013 12:03 PM CDT 09/18/2013 12:03 PM CDT us External Provider Mtnv HEMATOLOGY ORDERABLES Fin al Result [facility]ORY [facility] - [place] CLIA # [id number] [address] [place] [address] * (ABNORMAL) TSH (09/18/2013 12:03 PM CDT) TSH 4.94(H) 0.30 - 4.80 uIU/mL 09/18/2013 1:41 PM CDT [facility] [place] Blood Collection / Unknown 09/18/2013 12:03 PM CDT 09/18/2013 12:03 PM CDT us External Provider [employer] CHEMISTRY ORDERABLES Jihan l Result Performing Organization Address City/[facility]/ZIP Co de Phone Number [facility] [employer] [facility] CLIA # [id number] [address] [place] [address] * HEMOGLOBIN A1C (09/18/2013 12:03 PM CDT) HEMOGLOBIN A1C 5.7 4.5 - 6.2 % 09/18/2013 1:01 PM CDT [facility] [employer] [facility] EST. AVG GLUCOSE, A1C 117 mg/dL 09/18/2013 1:01 PM CDT [facility] [employer] [facility] Blood Collection / Unknown 09/18/2013 12:03 PM CDT 09/18/2013 12:03 PM CDT External Provider [employer] CHEMISTRY ORDERABLES Jihan l Result Performing Organization Address [facility] Co de Phone Number [facility] [employer] [facility] CLIA # [id number] [address] [place] [address] * (ABNORMAL) LIPID PANEL (09/18/2013 12:03 PM CDT) CHOLESTEROL 235(H) 130 - 200 mg/dL 09/18/2013 1:41 PM CDT [facility] TRIGLYCERIDE 121 30 - 200 mg/dL 09/18/2013 1:41 PM CDT [facility] HDL 51 35 - 80 mg/dL 09/18/2013 1:41 PM CDT [facility] [employer] [facility] LDL CALCULATED 160(H) 0 - 100 mg/dL 09/18/2013 1:41 PM CDT [facility] [employer] [facility] Blood Collection / Unknown 09/18/2013 12:03 PM CDT 09/18/2013 12:03 PM CDT Narrative [facility] LABORATORY [employer] [facility] - 09/18/2013 1:41 PM CDT [...] Jihan l Result [facility] [place] CLIA # [id number] [address] [address] documented in this encounter Visit Diagnoses Not on filedocumented in this encounter Additional Health Concerns Infection Onset Date Last Indicated Resolved Time R/O C. diff 10/16/2020 10/16/2020 10/16/2020 11:1 0 AM CDT documented as of this encounter Care Teams Darkroom Technician Relationship Specialty Start Date End Date Fabiola Soto MD [address] [address] PCP - General Family Practice 05/27/13 documented as of this encounter
--- OUTSIDE RECORDS SUMMARY | 2025-02-16 17:09 | XMS_ITS | Encounter Summary ---
Author Organization [facility] Address [address] [place] [address] Care Team Providers Care Semiconductor Development Technician Name Role Phone Sánchez Macario MD Primary Care Provider [phone] Encounter Details Date Type Department Care Team [...] often do you attend chur ch or tenriism services? Never 01/05/2020 Do you belong to [...] on file Legal Sex Female 9:22 AM OFFICE SYSTEM ANALYST Gender Identity Not on file Sexual Orientation Not on file COVID-19 Exposure Response Date Recorded In the last month, have you been in contact with someone who was confirmed or suspected to have Coronavirus / COVID-19? Yes 05/18/2021 1:41 PM OFFICE SYSTEM ANALYST documented as of this encounter Plan of Treatment Upcoming Encounters Date Type Department Care Team (Late st Contact Info) Description 02/17/2025 9:00 AM CDT Office Visit [facility] [address] [facility] [address] [place] [address] Sarita Oro, [facility] [address] [facility] [address] [place] [phone] 04/29/2025 4:00 PM OFFICE SYSTEM ANALYST Office Visit [facility] Medicine [address] [address] Sánchez Macario MD [address] [address] documented as of this encounter Visit Diagnoses Not on filedocumented in this encounter Additional Health Concerns Infection Onset Date Last Indicated Resolved Time COVID-19 05/11/2021 05/11/2021 05/31/2021 2:22 AM OFFICE SYSTEM ANALYST R/O Respiratory 06/07/2021 06/07/2021 06/07/2021 1 0:14 PM OFFICE SYSTEM ANALYST COVID-19 04/18/2023 04/18/2023 05/08/2023 1:16 AM OFFICE SYSTEM ANALYST R/O C. diff 09/04/2023 09/04/2023 09/04/2023 11:4 7 PM CDT R/O COVID-19 09/04/2023 09/04/2023 09/04/2023 6:46 PM CDT R/O COVID-19 11/11/2023 11/11/2023 11/11/2023 1:08 PM CDT Assessment Noted Time PHQ-9 Depression Total Score: 1 12/14/19 11:24 AM CDT documented as of this encounter Care Teams Semiconductor Development Technician Relationship Specialty Start Date End Date Sánchez Macario MD [address] [phone] PCP - General Family Practice 04/10/21 documented as of this encounter
--- OUTSIDE RECORDS SUMMARY | 2025-02-16 17:10 | XMS_ITS | Encounter Summary ---
Author Organization [facility] Address [address] [place] [address] Care Team Providers Care Laboratory Courier Name Role Phone Sánchez Macario MD Primary Care Provider [phone] [phone] Encounter Details Date Type Department Care Team [...] any clubs o r organizations such as restorationism groups, unions, fraternal or athletic groups, or [...] on file Legal Sex Female 9:22 AM LAW EXAMINER Gender Identity Not on file Sexual Orientation Not on file COVID-19 Exposure Response Date Recorded In the last month, have you been in contact with someone who was confirmed or suspected to have Coronavirus / COVID-19? Yes 05/18/2021 1:41 PM LAW EXAMINER documented as of this encounter Plan of Treatment Upcoming Encounters Date Type Department Care Team (Late st Contact Info) Description 02/17/2025 9:00 AM CDT Office Visit [facility] [address] [facility] [address] [place] [phone] Sarita Oro, [facility] [address] [facility] [address] [place] [phone] 04/29/2025 4:00 PM LAW EXAMINER Office Visit [facility] Medicine [address] [address] Sánchez Macario MD [address] [phone] documented as of this encounter Visit Diagnoses Not on filedocumented in this encounter Additional Health Concerns Infection Onset Date Last Indicated Resolved Time COVID-19 05/11/2021 05/11/2021 05/31/2021 2:22 AM LAW EXAMINER R/O Respiratory 06/07/2021 06/07/2021 06/07/2021 1 0:14 PM LAW EXAMINER COVID-19 04/18/2023 04/18/2023 05/08/2023 1:16 AM LAW EXAMINER R/O C. diff 09/04/2023 09/04/2023 09/04/2023 11:4 7 PM CDT R/O COVID-19 09/04/2023 09/04/2023 09/04/2023 6:46 PM CDT R/O COVID-19 11/11/2023 11/11/2023 11/11/2023 1:08 PM CDT Assessment Noted Time PHQ-9 Depression Total Score: 1 12/14/19 11:24 AM CDT documented as of this encounter Care Teams Laboratory Courier Relationship Specialty Start Date End Date Sánchez Macario MD [address] [address] PCP - General Family Practice 04/10/21 documented as of this encounter
--- OUTSIDE RECORDS SUMMARY | 2025-02-16 17:10 | XMS_ITS | Encounter Summary ---
Author Organization [facility] Address [address] [place] [address] Care Team Providers Care Documentation Manager Name Role Phone Fabiola Soto MD Primary Care Provider [phone] Encounter Details Date Type Department Care Team (Late st Contact Info) Description 08/29/2012 Ancillary Orders [facility] General Laboratory Services [place] [address] [place] [address] Social History Tobacco Use Types Packs/Day Years Used Date Smoking Tobacco: Never Smokeless Tobacco: Never Alcohol Use Standard Drinks/Week Comments No 0 (1 standard drink = 0.6 oz pur e alcohol) Comments No Sex and Gender Information Value Date Recorded Sex Assigned at Not on file 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 Gender Identity Not on file Sexual [...] - 1.30 mg/dL 08/29/2012 3:19 PM CDT [facility] GFR 62 >=60 mL/min/1.7 3 sq meter 08/29/2012 3:19 PM CDT [facility] GFR, 75 >=60 mL/min/1.7 3 sq meter 08/29/2012 3:19 PM CDT [facility] [email or web address] [facility] Blood specimen (specimen) 08/29/2012 9:00 AM CDT 08/29/2012 1:48 PM CDT Narrative [facility] [email or web address] [facility] - 08/29/2012 3:19 PM CDT eGFR has [...] ORDERAB LES Final Result Performing Organization Address City/[facility]/ZIP Co de Phone Number [facility] [email or web address] [facility] CLIA # [id number] [address] [place] [address] * (ABNORMAL) ALT (08/29/2012 9:00 AM CDT) ALT 23(L) 30 - 65 U/L 08/29/2012 3:19 PM CDT [facility] [email or web address] [facility] Blood specimen (specimen) 08/29/2012 9:00 AM CDT 08/29/2012 1:48 PM CDT [facility] CHEMISTRY ORDERAB LES Final Result [facility] [email or web address] [facility] CLIA # [id number] [address] [address] * (ABNORMAL) CBC WITHOUT DIFFERENTIAL (08/29/2012 9:00 AM CDT) WBC 5.6 4.0 - 10.0 K/uL 08/29/2012 8:45 PM CDT [facility] RBC 4.45 3.93 - 5.22 M/uL 08/29/2012 8:45 PM CDT [facility] HEMOGLOBIN 13.7 11.2 - 15.7 g/dL 08/29/2012 8:45 PM CDT [facility] HEMATOCRIT 42.4 34.1 - 44.9 % 08/29/2012 8:45 PM CDT [facility] MCV 95.3(H) 79.4 - 94.8 fL 08/29/2012 8:45 PM CDT [facility] MCH 30.8 25.6 - 32.2 pg 08/29/2012 8:45 PM CDT [facility] MCHC 32.3 32.2 - 35.5 g/dL 08/29/2012 8:45 PM CDT [facility] PLATELETS 255 163 - 337 K/uL 08/29/2012 8:45 PM CDT [facility] MPV 11.5 10.0 - 14.8 fL 08/29/2012 8:45 PM CDT [facility] RDW 14.1 11.0 - 14.5 % 08/29/2012 8:45 PM CDT [facility] RDW-STDEV 47.2 37.0 - 54.0 fL 08/29/2012 8:45 PM CDT [facility] Blood specimen (specimen) 08/29/2012 9:00 AM CDT 08/29/2012 1:48 PM CDT us Philly Darling [facility] HEMATOLOGY ORDERA BLES Final Result [facility] [email or web address] [facility] CLIA # [id number] [address] [place] [address] * (ABNORMAL) TSH (08/29/2012 9:00 AM CDT) TSH 5.94(H) 0.30 - 4.80 uIU/mL 08/29/2012 3:19 PM CDT [facility] [email or web address] [facility] Blood specimen (specimen) 08/29/2012 9:00 AM CDT 08/29/2012 1:48 PM CDT [facility] ORDERAB LES Final Result Performing Organization Address City/[facility]/ZIP Co de Phone Number [facility] [email or web address] [facility] CLIA # [id number] [address] [place] [address] * HEMOGLOBIN A1C (08/29/2012 9:00 AM CDT) HEMOGLOBIN A1C 5.8 4.5 - 6.2 % 08/31/2012 9:51 AM CDT [facility] [email or web address] [facility] EST. AVG GLUCOSE, A1C 120 mg/dL 08/31/2012 9:51 AM CDT [facility] [email or web address] [facility] Blood specimen (specimen) 08/29/2012 9:00 AM CDT 08/29/2012 1:48 PM CDT [facility] CHE[facility] ORDERAB LES Final Result [facility] [email or web address] [facility] CLIA # [id number] [address] [place] [address] * (ABNORMAL) LIPID PANEL (08/29/2012 9:00 AM CDT) CHOLESTEROL 218(H) 130 - 200 mg/dL 08/29/2012 3:19 PM CDT [facility] [email or web address] [facility] TRIGLYCERIDE 101 30 - 200 mg/dL 08/29/2012 3:19 PM CDT [facility] [email or web address] [facility] HDL 50 35 - 80 mg/dL 08/29/2012 3:19 PM CDT [facility] [email or web address] [facility] LDL CALCULATED 148(H) 0 - 100 mg/dL 08/29/2012 3:19 PM CDT [facility] Blood specimen (specimen) 08/29/2012 9:00 AM CDT 08/29/2012 1:48 PM CDT Narrative [facility] [email or web address] [facility] - 08/29/2012 3:19 PM CDT TOTAL CHOLESTEROL mg/dL Desirable <200 Borderline high 200-239 High >=240 TRIGLYCERIDES mg/dL Normal <150 Borderline high 150-199 High 200-499 Very high >=500 HDL CHOLESTEROL mg/dL Low <40 Normal 40-60 Desirable >60 LDL CHOLESTEROL mg/dL Optimal <100 Low risk 100-129 Borderline high 130-159 High 160-189 Very high >=190 Based on AHA/NCEP Guidelines Philly Darling [employer] CHEMISTRY ORDERAB LES Final Result [facility] [email or web address] [facility] CLIA # [id number] [address] [address] documented in this encounter Visit Diagnoses Not on filedocumented in this encounter Additional Health Concerns Infection Onset Date Last Indicated Resolved Time R/O C. diff 10/16/2020 10/16/2020 10/16/2020 11:1 0 AM CDT documented as of this encounter Care Teams Documentation Manager Relationship Specialty Start Date End Date Fabiola Soto MD [address] [address] PCP - General Family Practice 05/27/13 documented as of this encounter
--- OUTSIDE RECORDS SUMMARY | 2025-02-16 17:10 | XMS_ITS | Encounter Summary ---
Author Organization [facility] Address [address] [place] [address] Care Team Providers Care Concrete Mixer Name Role Phone Sánchez Macario MD Primary Care Provider [phone] Reason for Visit * Reason Onset Date Comments Patient Communication 02/11/2025 Encounter Details Date Type Department Care Team (Late st Contact Info) Description 02/11/2025 Telephone [facility] Medicine [address] [address] Sánchez Macario MD [facility] [address] [address] Patient Communication Social History Tobacco Use Types [...] often do you attend chur ch or islam services? 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 Discussed per daughter patient is not allergic to steroids and would like medication filled. Voiced understanding. Karla LESTER * Telephone Encounter - Karla Jay RN - 02/11/2025 10:34 AM CDT 02/11/2025 10:34 AM Returned call and spoke with caregiver. Discussed that the Budesonide is what she needed refilled. Discussed that pharmacy called and said that she had an allergy to steroids. Daughter states that she does not have an allergy to steroids. The prednisone was a very strong dose and she only had a fewissues but she doesn't have an allergy and is unsure where the pharmacy got that. Voiced understanding. Karla RN * Telephone Encounter - Karla Francois - 02/11/2025 10:20 AM CDT [facility]- [facility] States that patient has that she is allergic to steroids. Rocío stated that patient has taken hydrocortisone in the past. Pharmacy states that they dont fill for patient often and wants to know if the provider still wantsthe patient to take Budesonide or if provider wants to call in something different? Please advise pharmacy. Karla Francois, 02/11/2025 10:22 AM documented in this encounter Plan of Treatment Upcoming Encounters Date Type Department Care Team (Late st Contact Info) Description 02/17/2025 9:00 AM CDT Office Visit [facility] [address] [facility] [address] [place] [address] Sarita Oro, [facility] [address] [facility] [address] [place] [address] 04/29/2025 4:00 PM DEPENDENCY COUNSELOR Office Visit [facility] [address] [address] Sánchez Macario MD [address] [address] documented as of this encounter Visit Diagnoses Not on filedocumented in this encounter Additional Health Concerns Assessment Noted Time PHQ-9 Depression Total Score: 1 03/13/20 25 2:44 PM CDT documented as of this encounter Care Teams Concrete Mixer Relationship Specialty Start Date End Date Sánchez Macario MD [address] [address] PCP - General Family Practice 04/10/21 documented as of this encounter
--- OUTSIDE RECORDS SUMMARY | 2025-02-16 17:10 | XMS_ITS | Encounter Summary ---
Author Organization [facility] Address 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 Yes 05/18/2021 1:41 PM LPN documented as of this encounter Plan of Treatment Upcoming Encounters Date Type Department Care Team (Late st Contact Info) Description 02/17/2025 9:00 AM CDT Office Visit [facility] [address] [facility] [address] [place] [address] Sarita Oro, [facility] [address] [facility] [address] [place] [address] 04/29/2025 4:00 PM LPN Office Visit [facility] Medicine [address] [address] Sánchez Macario MD [address] [address] documented as of this encounter Visit Diagnoses Not on filedocumented in this encounter Additional Health Concerns Infection Onset Date Last Indicated Resolved Time COVID-19 05/11/2021 05/11/2021 05/31/2021 2:22 AM LPN R/O Respiratory 06/07/2021 06/07/2021 06/07/2021 1 0:14 PM LPN COVID-19 04/18/2023 04/18/2023 05/08/2023 1:16 AM LPN R/O C. diff 09/04/2023 09/04/2023 09/04/2023 11:4 7 PM CDT R/O COVID-19 09/04/2023 09/04/2023 09/04/2023 6:46 PM CDT R/O COVID-19 11/11/2023 11/11/2023 11/11/2023 1:08 PM CDT Assessment Noted Time PHQ-9 Depression Total Score: 1 12/14/19 11:24 AM CDT documented as of this encounter Care Teams Director Of Industrial Relations Relationship Specialty Start Date End Date Sánchez Macario MD [address] [address] PCP - General Family Practice 04/10/21 documented as of this encounter
--- OUTSIDE RECORDS SUMMARY | 2025-02-16 17:10 | XMS_ITS | Data Portability ---
Author Organization Zeenat S[facility] Address [address] [place] [address] Assessment No assessment recorded. Plan of Treatment [...] By Organization Details Last Modified Time 09/17/2023 [id number] Hospital records reviewed. Admitted with septic shock and later developed adrenal insufficiency known aortic stenosis with plan for evaluation for TAVR Labs weekly x 4 weeks. [email or web address] Not available 09/22/2023 12:40:57 09/24/2023 [id number] stop several supplements with nausea. d/c lasix d/t low bp. 1 L NS now. [email or web address] Not available 09/25/2023 10:29:18 11/19/2023 [id number] records reviewed . Admitted for respiratory failure with COPD exacerbation, found to have parainfluenza infection. Tx with IV abx and steroids. Ascending aortic dilation 4.1cm in July. Blood pressure low, staff to monitor. Still on prednisone. Will order budesonide nebs bid, duonebs TID. Labs weekly x 4 weeks. f/u 1 week. [email or web address] Not available 11/20/2023 11:06:45 11/26/2023 [id number] doing well, breathing tx helped with cough. mood good. [email or web address] Not available 11/27/2023 11:59:45 Reason for Referral None Reported. Problems Name Problem SNOMED Code Status Onset Date Resolution Date Notes Provider Name and Address Organization Details Recorded Time Hospital inpatient stay within past 30 days 3447275333313 [facility] 13:50:57 Iatrogenic adrenal insufficie ncy 316186343 [facility] 13:52:10 Septic shock 55089349 Active 2023 [facility] 4 13:52:11 Interstiti al lung disease 769370454 Active 2023 [facility] BAU[facility] 4 13:52:13 Infiltrati ng duct carcinoma of breast 110940829 Active 2023 [facility] BAU[facility] 4 13:52:28 Severe aortic valve stenosis 849014644 Active 2023 [facility] BAU[facility] 4 13:52:37 Essential hypertensi on 97708958 Active 2023 [facility] BAU[facility] 4 11:03:39 Pulmonary embolism 46607072 Active 2023 [facility] BAU[facility] 4 11:03:49 Chronic kidney disease stage 3 242536369 Active 2023 [facility] BAUER [facility] 4 11:04:01 Depressive disorder 85024517 [facility] 20[facility] 11:04:08 Problem Notes None recorded. [...] Updated DateTime 4 167.64 cm 41 kg/m2 183235. 46 g 85 /min 18 /min 98.2 [degF] 94 % 94 % 113/67 mm[Hg] [facility] 4 13:49:06 Date Recorded Body height Body mass index (BMI) Body weight Heart rate Respiratory rate Body temperature Oxygen saturation Oxygen saturation in Arterial blood by Pulse oximetry Systolic And Diastolic Provider Name and Address Organization Details Last Updated DateTime 4 167.64 cm 41 kg/m2 456020. 46 g 84 /min 16 /min 97 [degF] 94 % 94 % 108/65 mm[Hg] [facility] 4 09:40:59 Date Recorded Body height Body mass index (BMI) Body weight Heart rate Respiratory rate Body temperature Oxygen saturation Oxygen saturation in Arterial blood by Pulse oximetry Systolic And Diastolic Provider Name and Address Organization Details Last Updated DateTime 4 167.64 cm 35 kg/m2 27736.5 4 g 91 /min 18 /min 98.2 [degF] 94 % 94 % 111/60 mm[Hg] [facility] 11:57:35 Social History None recorded. Functional Status None recorded. Mental Status None recorded. Family History Nothing Reported. Medical History No medical history recorded. Gynecological HistoryNo gynecological history recorded. Obstetrics History GPAL:G 0 P 0 0 0 0 Past Encounters Encounter ID Performer Location Encounter Start Date Encounter Closed Date Diagnosis/Indication Diagnosis SNOMED-CT Code Diagnosis ICD10 Code Diagnosis IMO Codes Diagnosis Note [id number] Piotr Palmer DO [facility] ([facility]) [address] [place] [address] 09/17/2023 11:29:53 09/22/2023 14:32:29 Hospital inpatient stay within past 30 days [id number] 106 Z76.89 Septic shock 66275640 R6 5.21 Iatrogenic adrenal insufficiency 876339988 E27.3 Interstiti al lung disease 389401459 J84.9 Infiltrati ng duct carcinoma of breast 047601477 C50.919 Severe aor tic valve stenosis 982845194 I35.0 [id number] Piotr Palmer [facility] ([facility]) [address] [place] [address] 09/24/2023 08:12:39 09/30/2023 12:02:33 Interstitial lung disease 473979443 J84.9 Iatrogenic adrenal insufficiency 464914363 E27.3 Infiltrati ng duct carcinoma of breast 382049583 C50.919 Nausea 100611072 R11.0 Dehydration 42748832 E86 .0 [id number] Piotr Palmer [facility] ([facility]) [address] [place] [address] 11/19/2023 16:38:37 11/24/2023 14:57:55 Hospital inpatient stay within past 30 days [id number] 106 Z76.89 Severe aor tic valve stenosis 184264164 I35.0 Essential hypertension 70879007 I10 Pulmonary embolism 23848 003 I26.99 Chronic ki dney disease stage 3 975165829 N18.31 Depressive disorder 3548 9007 F32.A [id number] Piotr Palmer [facility] ([facility]) [address] [place] [address] 11/26/2023 11:18:04 11/27/2023 16:41:14 Interstitial lung disease 775077401 J84.9 Chronic ki dney disease stage 3 556971065 N18.31 Depressive disorder 3548 9007 F32.A Essential hypertension 29318482 I10 Health Concerns Section Related Observation LastModified by Organization Detai ls LastModified Time None Recorded Concern Status LastModified by Organization Details LastModified Time None Recorded Advance Directives Directive None Recorded Payers Insurance Date Sequence Insurance Name Policy Number Policy Mallory Covered Member ID Mallory Member ID Guarantor Name 09/25/2023 1 [place] Janet Calvillo [id number] Janet Calvillo 11/25/2023 [place] - [facility] (MEDICARE) Janet Calvillo [id number] Janet Calvillo 09/25/2023 1 [place] - [place]) [id number] Janet Calvillo [id number] Janet Calvillo 12/02/2023 1 [place] (MEDICARE REPLACEMENT HMO) [id number] Janet Calvillo [id number] Janet Calvillo 09/17/2023 1 [place] - [place]) Jaent Calvillo [id number] Janet Calvillo Notes Date Note Type [...] noted in the HPI Piotr Palmer DO [address] [place] [address], [address], [facility] 09/22/2023 12:41:20 09/24/2023 text/html Care Management - GeneralReported by [facility], patient reportsexpected outcome: stabilizeandprognosis: moderate. For context, patient reportsnot current smoker. For lifestyle changes, patient reportsexercises regularly. For medication therapy, patient reportscompliant with follow-up visits,compliance with oral medication is good,understands effect of concurrent medications,understand s potential side effects, andunderstands missed doses.ROS as noted in the [facility] Piotr Palmer[address], [address], [facility] 09/29/2023 10:18:02 11/19/2023 text/html Care Management - GeneralReported by [facility], patient reportsexpected outcome: stabilizeandprognosis: moderate. For context, patient reportsnot current smoker. For lifestyle changes, patient reportsexercises regularly. For medication therapy, patient reportscompliant with follow-up visits,compliance with oral medication is good,understands effect of concurrent medications,understand s potential side effects, andunderstands missed doses.ROS as noted in the [facility] Piotr Delong[address], [address], [facility] 11/24/2023 08:50:43 11/26/2023 text/html Care Management - GeneralReported by [facility], patient reportsexpected outcome: stabilizeandprognosis: moderate. For context, patient reportsnot current smoker. For lifestyle changes, patient reportsexercises regularly. For medication therapy, patient reportscompliant with follow-up visits,compliance with oral medication is good,understands effect of concurrent medications,understand s potential side effects, andunderstands missed doses.ROS as noted in the [facility] Piotr Delong[address], [address], [facility] 12/01/2023 12:00:19 OBGyn Episode No OBEpisode recorded.
--- OUTSIDE RECORDS SUMMARY | 2025-02-16 17:10 | XMS_ITS | Encounter Summary ---
Author Organization [facility] Address [address] [place] [address] Care Team Providers Care Systems Analysis Manager Name Role Phone Sánchez Macario MD Primary Care Provider [phone] Encounter Details Date Type Department Care Team [...] on file Legal Sex Female 9:22 AM AUTO BATTERY BUILDER Gender Identity Not on file Sexual Orientation Not on file COVID-19 Exposure Response Date Recorded In the last month, have you been in contact with someone who was confirmed or suspected to have Coronavirus / COVID-19? Yes 05/18/2021 1:41 PM AUTO BATTERY BUILDER documented as of this encounter Plan of Treatment Upcoming Encounters Date Type Department Care Team (Late st Contact Info) Description 02/17/2025 9:00 AM CDT Office Visit [facility] [address] [facility] [address] [place] [address] Sarita Oro, [facility] [address] [facility] [address] [place] [address] 04/29/2025 4:00 PM AUTO BATTERY BUILDER Office Visit [facility] Medicine [address] [address] Sánchez Macario MD [address] [address] documented as of this encounter Visit Diagnoses Not on filedocumented in this encounter Additional Health Concerns Infection Onset Date Last Indicated Resolved Time COVID-19 05/11/2021 05/11/2021 05/31/2021 2:22 AM AUTO BATTERY BUILDER R/O Respiratory 06/07/2021 06/07/2021 06/07/2021 1 0:14 PM AUTO BATTERY BUILDER COVID-19 04/18/2023 04/18/2023 05/08/2023 1:16 AM AUTO BATTERY BUILDER R/O C. diff 09/04/2023 09/04/2023 09/04/2023 11:4 7 PM CDT R/O COVID-19 09/04/2023 09/04/2023 09/04/2023 6:46 PM CDT R/O COVID-19 11/11/2023 11/11/2023 11/11/2023 1:08 PM CDT Assessment Noted Time PHQ-9 Depression Total Score: 1 12/14/19 11:24 AM CDT documented as of this encounter Care Teams Systems Analysis Manager Relationship Specialty Start Date End Date Sánchez Macario MD [address] [address] PCP - General Family Practice 04/10/21 documented as of this encounter
--- OUTSIDE RECORDS SUMMARY | 2025-02-16 17:10 | XMS_ITS | Encounter Summary ---
Author Organization [facility] Address [address] [place] [address] Care Team Providers Care Addiction Therapist Name Role Phone Sánchez Macario MD Primary Care Provider [phone] [phone] Encounter Details Date Type Department Care Team (Late st Contact Info) Description 11/01/2024 Abstract [facility] [address] [facility] [place] [id number] Provider, Abstract NO ADDRESS ON FILE Social [...] Master's degree (e.g., MA, MS, Omid, MEd, MEAT CURER, TYSHAWN) 06/05/2021 Comments No Sex and Gender Information Value Date Recorded Sex Assigned at Not on file Legal Sex Female 9:22 AM ACCREDITATION MANAGER Gender Identity Not on file Sexual Orientation Not on file documented as of this encounter Plan of Treatment Upcoming Encounters Date Type Department Care Team (Late st Contact Info) Description 02/17/2025 9:00 AM CDT Office Visit [facility] [address] [facility] [address] [place] [phone] Sarita Oro, [facility] [address] [facility] [address] [place] [phone] 04/29/2025 4:00 PM ACCREDITATION MANAGER Office Visit [facility] [place] [address] [phone] Sánchez Macario MD [address] [phone] documented as of this encounter Visit Diagnoses Not on filedocumented in this encounter Additional Health Concerns Assessment Noted Time PHQ-9 Depression Total Score: 1 07/02/19 25 2:44 PM CDT documented as of this encounter Care Teams Addiction Therapist Relationship Specialty Start Date End Date Sánchez Macario MD [address] [phone] PCP - General Family Practice 04/10/21 documented as of this encounter
--- OUTSIDE RECORDS SUMMARY | 2025-02-16 17:10 | XMS_ITS | Encounter Summary ---
Author Organization [facility] Address [address] [place] [address] Care Team Providers Care Manager Supply Chain Planning Name Role Phone Sánchez Macario MD Primary Care Provider [phone] [phone] Encounter Details Date Type Department Care Team [...] often do you attend chur ch or orthodoxy services? Never 01/05/2020 Do you belong to [...] on file Legal Sex Female 9:22 AM METAL ROOM DENTAL TECHNICIAN Gender Identity Not on file Sexual Orientation Not on file COVID-19 Exposure Response Date Recorded In the last month, have you been in contact with someone who was confirmed or suspected to have Coronavirus / COVID-19? Yes 05/18/2021 1:41 PM METAL ROOM DENTAL TECHNICIAN documented as of this encounter Plan of Treatment Upcoming Encounters Date Type Department Care Team (Late st Contact Info) Description 02/17/2025 9:00 AM CDT Office Visit [facility] [address] [facility] [address] [place] [phone] Sarita Oro, [facility] [address] [facility] [address] [place] [phone] 04/29/2025 4:00 PM METAL ROOM DENTAL TECHNICIAN Office Visit [facility] Medicine [address] [phone] Sánchez Macario MD [address] [phone] documented as of this encounter Visit Diagnoses Not on filedocumented in this encounter Additional Health Concerns Infection Onset Date Last Indicated Resolved Time COVID-19 05/11/2021 05/11/2021 05/31/2021 2:22 AM METAL ROOM DENTAL TECHNICIAN R/O Respiratory 06/07/2021 06/07/2021 06/07/2021 1 0:14 PM METAL ROOM DENTAL TECHNICIAN COVID-19 04/18/2023 04/18/2023 05/08/2023 1:16 AM METAL ROOM DENTAL TECHNICIAN R/O C. diff 09/04/2023 09/04/2023 09/04/2023 11:4 7 PM CDT R/O COVID-19 09/04/2023 09/04/2023 09/04/2023 6:46 PM CDT R/O COVID-19 11/11/2023 11/11/2023 11/11/2023 1:08 PM CDT Assessment Noted Time PHQ-9 Depression Total Score: 1 12/14/19 11:24 AM CDT documented as of this encounter Care Teams Manager Supply Chain Planning Relationship Specialty Start Date End Date Sánchez Macario MD [address] [phone] PCP - General Family Practice 04/10/21 documented as of this encounter
--- OUTSIDE RECORDS SUMMARY | 2025-02-16 17:10 | XMS_ITS | Encounter Summary ---
Author Organization [facility] Address [address] [place] [address] Care Team Providers Care Rolfer Name Role Phone Sánchez Macario MD Primary Care Provider [phone] [phone] Encounter Details Date Type Department Care Team [...] file Legal Sex Female 9:22 AM CROWN ASSEMBLY MACHINE SET UP MECHANIC Gender Identity Not on file Sexual Orientation Not on file COVID-19 Exposure Response Date Recorded In the last month, have you been in contact with someone who was confirmed or suspected to have Coronavirus / COVID-19? Yes 05/18/2021 1:41 PM CROWN ASSEMBLY MACHINE SET UP MECHANIC documented as of this encounter Plan of Treatment Upcoming Encounters Date Type Department Care Team (Late st Contact Info) Description 02/17/2025 9:00 AM CDT Office Visit [facility] [address] [facility] [address] [place] [phone] Sarita Oro, [facility] [address] [facility] [address] [place] [phone] 04/29/2025 4:00 PM CROWN ASSEMBLY MACHINE SET UP MECHANIC Office Visit [facility] Medicine [address] [phone] Sánchez Macario MD [address] [phone] documented as of this encounter Visit Diagnoses Not on filedocumented in this encounter Additional Health Concerns Infection Onset Date Last Indicated Resolved Time COVID-19 05/11/2021 05/11/2021 05/31/2021 2:22 AM CROWN ASSEMBLY MACHINE SET UP MECHANIC R/O Respiratory 06/07/2021 06/07/2021 06/07/2021 1 0:14 PM CROWN ASSEMBLY MACHINE SET UP MECHANIC COVID-19 04/18/2023 04/18/2023 05/08/2023 1:16 AM CROWN ASSEMBLY MACHINE SET UP MECHANIC R/O C. diff 09/04/2023 09/04/2023 09/04/2023 11:4 7 PM CDT R/O COVID-19 09/04/2023 09/04/2023 09/04/2023 6:46 PM CDT R/O COVID-19 11/11/2023 11/11/2023 11/11/2023 1:08 PM CDT Assessment Noted Time PHQ-9 Depression Total Score: 1 12/14/19 11:24 AM CDT documented as of this encounter Care Teams Rolfer Relationship Specialty Start Date End Date Sánchez Macario MD [address] [phone] PCP - General Family Practice 04/10/21 documented as of this encounter
--- OUTSIDE RECORDS SUMMARY | 2025-02-16 17:10 | XMS_ITS | Encounter Summary ---
Author Organization [facility] Address [address] [place] [address] Care Team Providers Care Sdc Teacher Name Role Phone Sánchez Macario MD Primary Care Provider [phone] Reason for Visit * Reason Comments Medication Refill Encounter Details Date Type Department Care Team (Late st Contact Info) Description 02/11/2025 Refill [facility] Medicine [address] [phone] Sánchez Macario MD [facility] [address] [phone] Social History Tobacco Use Types Packs/Day Years [...] Master's degree (e.g., MA, MS, Omid, MEd, DESKTOP OPERATOR, TYSHAWN) 06/05/2021 Comments No Sex and Gender Information Value Date Recorded Sex Assigned at Not on file Legal Sex Female 9:22 AM FIELD PROFESSIONAL Gender Identity Not on file Sexual Orientation Not on file documented as of this encounter Miscellaneous Notes * Telephone Encounter - Scott Page - 02/11/2025 9:48 AM CDT Copied from [facility] #[id number]. Topic: Medication Request >> Feb 11, 2025 9:46 AM Scott Robles wrote: Caller Name: Radha (On PHI) Callback Number: [phone] Medication (Ask patient/caregiver to spell if possible): Nebulizer Solution Note: All medication prescriptions can be requested using one [facility] Preferred Pharmacy: [facility] [address] [place] [address], [place] - [address] [facility] [address] [facility] [address] [facility] [id number] Call Notes: Caller requesting refill for patient, stating it is a nebulizer solution and not entirely sure which one, mentioned Albuterol or a combination solution Did caller contact the correct clinic for prescribing provider? Yes Ask caller if the refill is for a controlled medication. Is this for a controlled Medication? Unsure Is there an encounter open? No documented in this encounter Plan of Treatment Upcoming Encounters Date Type Department Care Team (Late st Contact Info) Description 02/17/2025 9:00 AM CDT Office Visit [facility] [address] [facility] [address] [place] [phone] [facility] [address] [facility] [address] [place] [phone] 04/29/2025 4:00 PM FIELD PROFESSIONAL Office Visit [facility] [address] [phone] Sánchez Macario MD [address] [phone] documented as of this encounter Visit Diagnoses Not on filedocumented in this encounter Additional Health Concerns Assessment Noted Time PHQ-9 Depression Total Score: 1 07/02/19 25 2:44 PM CDT documented as of this encounter Care Teams Sdc Teacher Relationship Specialty Start Date End Date Sánchez Macario MD [address] [phone] PCP - General Family Practice 04/10/21 documented as of this encounter
--- OUTSIDE RECORDS SUMMARY | 2025-02-16 17:10 | XMS_ITS | Encounter Summary ---
Author Organization [facility] Address 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 Yes 05/18/2021 1:41 PM RETAIL AND RESTAURANT ASSOCIATE documented as of this encounter Plan of Treatment Upcoming Encounters Date Type Department Care Team (Late st Contact Info) Description 02/17/2025 9:00 AM CDT Office Visit [facility] [address] [facility] [address] [place] [phone] Sarita Oro, [facility] [address] [facility] [address] [place] [phone] 04/29/2025 4:00 PM RETAIL AND RESTAURANT ASSOCIATE Office Visit [facility] Medicine [address] [phone] Sánchez Macario MD [address] [phone] documented as of this encounter Visit Diagnoses Not on filedocumented in this encounter Additional Health Concerns Infection Onset Date Last Indicated Resolved Time COVID-19 05/11/2021 05/11/2021 05/31/2021 2:22 AM RETAIL AND RESTAURANT ASSOCIATE R/O Respiratory 06/07/2021 06/07/2021 06/07/2021 1 0:14 PM RETAIL AND RESTAURANT ASSOCIATE COVID-19 04/18/2023 04/18/2023 05/08/2023 1:16 AM RETAIL AND RESTAURANT ASSOCIATE R/O C. diff 09/04/2023 09/04/2023 09/04/2023 11:4 7 PM CDT R/O COVID-19 09/04/2023 09/04/2023 09/04/2023 6:46 PM CDT R/O COVID-19 11/11/2023 11/11/2023 11/11/2023 1:08 PM CDT Assessment Noted Time PHQ-9 Depression Total Score: 1 12/14/19 11:24 AM CDT documented as of this encounter Care Teams Lan Engineer Relationship Specialty Start Date End Date Sánchez Macario MD [address] [phone] PCP - General Family Practice 04/10/21 documented as of this encounter
--- OUTSIDE RECORDS SUMMARY | 2025-02-16 17:10 | XMS_ITS | Encounter Summary ---
Author Organization [facility] Address [address] [place] [address] Care Team Providers Care Drapery Worker Name Role Phone Sánchez Macario MD Primary Care Provider [phone] [phone] Encounter Details Date Type Department Care Team [...] on file Legal Sex Female 9:22 AM EMBEDDED NURSE Gender Identity Not on file Sexual Orientation Not on file COVID-19 Exposure Response Date Recorded In the last month, have you been in contact with someone who was confirmed or suspected to have Coronavirus / COVID-19? Yes 05/18/2021 1:41 PM EMBEDDED NURSE documented as of this encounter Plan of Treatment Upcoming Encounters Date Type Department Care Team (Late st Contact Info) Description 02/17/2025 9:00 AM CDT Office Visit [facility] [address] [facility] [address] [place] [phone] Sarita Oro, [facility] [address] [facility] [address] [place] [phone] 04/29/2025 4:00 PM EMBEDDED NURSE Office Visit [facility] Medicine [address] [phone] Sánchez Macario MD [address] [phone] documented as of this encounter Visit Diagnoses Not on filedocumented in this encounter Additional Health Concerns Infection Onset Date Last Indicated Resolved Time COVID-19 05/11/2021 05/11/2021 05/31/2021 2:22 AM EMBEDDED NURSE R/O Respiratory 06/07/2021 06/07/2021 06/07/2021 1 0:14 PM EMBEDDED NURSE COVID-19 04/18/2023 04/18/2023 05/08/2023 1:16 AM EMBEDDED NURSE R/O C. diff 09/04/2023 09/04/2023 09/04/2023 11:4 7 PM CDT R/O COVID-19 09/04/2023 09/04/2023 09/04/2023 6:46 PM CDT R/O COVID-19 11/11/2023 11/11/2023 11/11/2023 1:08 PM CDT Assessment Noted Time PHQ-9 Depression Total Score: 1 12/14/19 11:24 AM CDT documented as of this encounter Care Teams Drapery Worker Relationship Specialty Start Date End Date Sánchez Macario MD [address] [phone] PCP - General Family Practice 04/10/21 documented as of this encounter
--- NOTE | 2025-02-16 17:13 | W.ED.SOB ---
HPI - SOB/Dyspnea General: Chief Complaint: Shortness of Breath/Dyspnea Stated Complaint: fluid build up Time Seen by Provider: 02/16/25 16:59 History of Present Illness: HPI Narrative: 84-year-old female with a history of recurrent right pleural effusion, TAVR, chronic hypoxemic respiratory failure on 2 L nasal cannula at all times, COPD, hypothyroidism, hyperlipidemia, pulmonary embolism, chronic anticoagulation on Eliquis, and hypertension who presents to the emergency room with worsening shortness of breath and concern that she needs paracentesis for recurrent pleural effusion. Home health did come by and at that time she was requiring more oxygen. Now she is in the mid to upper 90s on her home 2 L. No chest pain. No altered mental status. No focal motor deficits. No fevers. Related Data Home Medications ?Medication ?Instructions ?Recorded ?Confirmed potassium chloride 10 mEq 10 meq PO DAILY 12/28/19 02/08/25 capsule,extended release tolterodine 4 mg capsule,extended 4 mg PO DAILY 12/28/19 02/08/25 release 24 hr denosumab 60 mg/mL subcutaneous 60 mg SUBCUT .[id number] 06/26/20 02/08/25 syringe (Prolia) cyanocobalamin (vitamin B-12) 2,500 mcg PO QAM 07/19/21 02/08/25 2,500 mcg tablet fluoxetine 40 mg capsule 40 mg PO DAILY 12/08/23 02/08/25 ropinirole 0.25 mg tablet 0.25 mg PO DAILY 12/15/23 02/08/25 tizanidine 2 mg tablet 2 mg PO DAILY PRN Spasms 03/15/24 02/08/25 acetaminophen 325 mg tablet 325 mg PO QID PRN Pain 04/22/24 02/08/25 hydrocortisone 20 mg tablet See Rx Instructions .Route .COMPLEX 01/22/25 02/08/25 levothyroxine 150 mcg tablet 150 mcg PO QAM 01/22/25 02/08/25 lorazepam 1 mg tablet 1 mg PO Q8H PRN Anxiety 01/22/25 02/08/25 multivitamin with minerals 1 tab PO DAILY 01/22/25 02/08/25 cranberry 500 mg capsule 500 mg PO QAM 01/28/25 02/08/25 lactobacillus combination no.4 3 3,000 mmu cells PO DAILY 01/28/25 02/08/25 billion cell capsule (Probiotic) loperamide 2 mg capsule 2 mg PO Q4H PRN Diarrhea 01/28/25 02/08/25 magnesium oxide 400 mg PO BID 01/28/25 02/08/25 red yeast rice 600 mg capsule 600 mg PO BID 01/28/25 02/08/25 vitamin E 268 mg (400 unit) capsule 268 mg PO DAILY 01/28/25 02/08/25 vitamins-lipotropics tablet 1 tab PO BID 01/28/25 02/08/25 Previous Rx's ?Medication ?Instructions ?Recorded custom inserts #1 ea 08/06/23 apixaban 5 mg tablet (Eliquis) 5 mg PO BID #60 tabs 09/11/23 meclizine 25 mg tablet 25 mg PO QID PRN dizziness #20 tabs 10/15/24 hydrocodone 5 mg-acetaminophen 325 1 tab PO Q6H PRN pain #14 tabs 02/07/25 mg tablet ondansetron 4 mg disintegrating 4 mg PO Q6H PRN nausea and 02/08/25 tablet vomiting #60 tabs prochlorperazine maleate 10 mg 10 mg PO Q4H PRN mild nausea #30 02/11/25 tablet (Compazine) tabs Allergies Allergy/AdvReac Type Severity Reaction Status Date / Time tetanus toxoid, adsorbed Allergy Severe unknown Verified 02/16/25 17:09 ciprofloxacin (From Cipro) Allergy Unknown ADR-Vomitin Verified 02/16/25 17:09 g erythromycin base Allergy Unknown ADR-Vomitin Verified 02/16/25 17:09 g gabapentin (From Neurontin) Allergy Unknown unknown Verified 02/16/25 17:09 Influenza Virus Vaccines Allergy Unknown unknown Verified 02/16/25 17:09 tramadol (From Ultram) Allergy Unknown unknown Verified 02/16/25 17:09 aspirin Allergy stomach Verified 02/16/25 17:09 pain, unbearable egg Allergy unknown Verified 02/16/25 17:09 Fish Containing Products Allergy ALGY-Rash Verified 02/16/25 17:09 NSAIDS (Non-Steroidal Allergy heartburn, Verified 02/16/25 17:09 Anti-Inflamma stomach pain Tetanus Vaccines and Toxoid Allergy unknown Verified 02/16/25 17:09 hydrocodone (From Vicodin) AdvReac Mild ADR-Nausea Verified 02/16/25 17:09 adhesive AdvReac Unknown unknown Verified 02/16/25 17:09 Review of Systems Narrative: Constitutional symptoms: Negative except as documented in HPI. Skin symptoms: Negative except as documented in HPI. Eye symptoms: Negative except as documented in HPI. ENMT symptoms: Negative except as documented in HPI. Respiratory symptoms: Negative except as documented in HPI. Cardiovascular symptoms: Negative except as documented in HPI. Gastrointestinal symptoms: Negative except as documented in HPI. Genitourinary symptoms: Negative except as documented in HPI. Musculoskeletal symptoms: Negative except as documented in HPI. Neurologic symptoms: Negative except as documented in HPI. Psychiatric symptoms: Negative except as documented in HPI. Endocrine symptoms: Negative except as documented in HPI. PFSH ED PFSH: Medical History (Updated 02/16/25 @ 19:47 by Ese Mayes MD) Pulmonary nodules 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 Hypothyroidism COVID-2021 History of echocardiogram 06/2023 EF 60%, Grade I/IV diastolic dysfunction, severe AV stenosis 0.99, mean gradient 40.2 mmHg, peak velocity 4.19 ms 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 Primary osteoarthritis of left knee Iron deficiency anemia Dyslipidemia Port-A-Cath in place placed 12/2022 Adrenal insufficiency hospital stay 08/2023 Reversible airway obstruction Lesion of right [place] ureter History of recurrent UTI (urinary tract infection) Interstitial lung disease Asthma Breast cancer Hydronephrosis of right kidney Osteoporosis Arthritis Aortic stenosis Hypertension DVT (deep venous thrombosis) Pulmonary embolism Obesity Surgical History History of cardiac catheterization 07/2023 no obstructive disease Hx of tubal ligation Hx of cystoscopy Hx of colonoscopy Age 65 Hx of cholecystectomy H/O: hysterectomy Hx of cataract surgery S/P tonsillectomy Family History Father , AT 92 Congestive heart failure (CHF) Mother , AT 100 of unknown cause Other CAD (coronary artery disease) Cancer Diabetes Hyperlipidemia Hypertension Stroke Denies family history of Psychiatric illness Chronic kidney disease (CKD) Suicide Family history of premature coronary artery disease Lung disease Social History Smoking and tobacco/nicotine status: never used tobacco/nicotine Alcohol intake: never Substance/Drug Use: never Marital status: / Current occupational status: retired and disabled Physical Exam Narrative: EXAM NARRATIVE: General: Alert, no acute distress. Skin: Warm, dry. Head: Normocephalic, atraumatic. Neck: Supple, trachea midline. Eye: Extraocular movements are intact. Ears, nose, mouth and throat: mucosa moist. Cardiovascular: Regular, Normal peripheral perfusion. Respiratory: Diminished breath sounds on the right, respirations are non-labored, breath sounds are equal, Symmetrical chest wall expansion. Gastrointestinal: Soft, Nontender, Non distended Musculoskeletal: Normal ROM, no deformity. Neurological: Alert and oriented, No focal neurological deficit observed. Psychiatric: Cooperative, appropriate mood & affect. Course Vital Signs: Vital signs: Vital Signs Temperature 97.9 F 02/16/25 17:02 Pulse Rate 86 02/16/25 19:04 Respiratory Rate 20 H 02/16/25 19:04 Blood Pressure 128/91 02/16/25 19:04 Pulse Oximetry 96 02/16/25 19:04 Oxygen Delivery Me thod Nasal Cannula 02/16/25 19:04 Oxygen Flow Rate 2 02/16/25 17:02 MDM - SOB/Dyspnea Medical Decision Making Medical decision making: Patient's reason for coming to the emergency room: Worsening shortness of breath. Acute on chronic hypoxemia at home. Social determinants: Retired. Lives at home alone. I reviewed the patient's medical record. 84-year-old female with a history of recurrent right pleural effusion, TAVR, chronic hypoxemic respiratory failure on 2 L nasal cannula at all times, COPD, hypothyroidism, hyperlipidemia, pulmonary embolism, chronic anticoagulation on Eliquis, and hypertension I reviewed the patient's current home meds Patient is chronically anticoagulated on Eliquis. I reviewed December oncology note by Dr. Avalos. 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 He talked about CarboTaxol and Keytruda. Finished in July 2023. Plan at that time was to DC Keytruda and come back in 2 weeks to discuss treatment. I do not see that she did this. Alternate historians: EMS to give some history as well. Differential diagnosis for patient with shortness of breath includes but is not limited to and based on the above HPI, review of systems and physical exam: Pneumonia. Bronchitis. Asthma or COPD with acute exacerbation. Acute coronary syndrome / OK. Pulmonary embolism. Anxiety. Congestive heart failure. Viral infections including influenza and Covid-19. Atrial fibrillation. Anxiety. Pleural effusion. Pneumothorax. Orders placed to evaluate differential diagnosis based on the above differential, HPI and physical exam EKG: Time 1707. Rate 86. Normal sinus rhythm, No ST-T changes, no ectopy, left bundle branch block, This was reviewed and interpreted by myself the ER physician at 1710. This was present earlier in the month. Repeat EKG: Time 1847. Rate 85. Normal sinus rhythm, No ST-T changes, no ectopy, left bundle branch block, This was reviewed and interpreted by myself the ER physician at 1851. No changes from EKG done previously today in the emergency room Chest x-ray: Worsening right pleural effusion. Multiple metastatic nodules in the left lung. And right upper lobe. This was reviewed and interpreted by myself the emergency room physician. I also reviewed the radiology report. Lab Review: Laboratory results were reviewed and interpreted by myself the emergency room physician. No leukocytosis. No anemia. No renal failure. Coags are mildly elevated with an INR 1.66. Initial troponin is 13 with no change on repeat. proBNP is 825. Assessment of risk: Level of risk: High risk factor. Metastatic cancer. Elderly. Lives at home alone. Anticoagulated. Oxygen saturations were dropping at home. She would be high risk for fall and even if she went home at this point. Hospitalization considerations: Admitting to observation with plans for ultrasound-guided thoracentesis tomorrow. Reexamination: Patient remained stable. No increased work of breathing. No altered mental status. No focal motor deficits. At rest she only requires 2 L but with any movement she drops. Consultation: I spoke with Dr. Porras who is on-call for the hospitalist service who agrees to admission. Assessment and plan: Pleural effusion Metastatic breast cancer Acute on chronic hypoxemic respiratory failure ?Patient stable at rest on 2 L nasal cannula. -I discussed the patient with the hospitalist on-call who is admitting the patient. - Discussed findings and plan with patient. Answered any questions. - All laboratory values were reviewed and interpreted personally by myself, the ER physician - All imaging was reviewed and interpreted personally by myself, the ER physician. - Evaluation and treatment of this problem were appropriate in the emergency setting Lab Data 02/16/25 17:15 02/16/25 17:15 Labs/Radiology: Radiology Impressions Chest X-Ray 02/16/25 16:59 IMPRESSION: 1. Interval increase in the size of the large right-sided pleural effusion. 2. Redemonstration of the multiple metastatic nodules in the left lung and in the visualized right upper lobe. Laboratory Results WBC 8.46 10^3/uL (3.29-11.43) 02/16/25 17:15 RBC 3.92 10^6/uL (3.85-5.65) 02/16/25 17:15 Hgb 12.00 g/dL (11.27-16.99) 02/16/25 17:15 Hct 38.7 % (36-47) 02/16/25 17:15 MCV 98.7 fl (85-98) H 02/16/25 17:15 MCH 30.6 pg (27-33) 02/16/25 17:15 MCHC 31.0 g/dL (30-55) 02/16/25 17:15 RDW 13.2 % (12.1-15.1) 02/16/25 17:15 Plt Count 240 10^3/cmm (157-399) 02/16/25 17:15 MPV 10.4 fL (7.4-10.4) 02/16/25 17:15 Neut % (Auto) 86.5 % 02/16/25 17:15 Lymph % (Auto) 4.7 % 02/16/25 17:15 [place] % (Auto) 6.6 % 02/16/25 17:15 Eos % (Auto) 1.1 % 02/16/25 17:15 Baso % (Auto) 0.7 % 02/16/25 17:15 Neut # (Auto) 7.32 10^3/uL (1.8-7.7) 02/16/25 17:15 Lymph # (Auto) 0.4 10^3/uL (0.8-4.8) L 02/16/25 17:15 [place] # (Auto) 0.6 10^3/uL (0.2-0.9) 02/16/25 17:15 Eos # (Auto) 0.1 10^3/uL (0.0-0.8) 02/16/25 17:15 Baso # (Auto) 0.1 10^3/uL (0.0-0.1) 02/16/25 17:15 Nucleated RBC % (auto) 0 % 02/16/25 17:15 Nucleated RBCs # 0.0 /100WBC 02/16/25 17:15 PT 20.60 SECONDS (12.1-14.9) H 02/16/25 17:15 INR 1.66 (0.8-1.2) H 02/16/25 17:15 APTT 33.3 SECONDS (23.9-36.7) 02/16/25 17:15 Sodium 138 mmol/L (136-145) 02/16/25 17:15 Potassium 4.5 mmol/L (3.5-5.1) 02/16/25 17:15 Chloride 100 mmol/L (98-107) 02/16/25 17:15 Carbon Dioxide 29 mmol/L (22-29) 02/16/25 17:15 Anion Gap 13.5 (5-19) 02/16/25 17:15 BUN 23 mg/dL (8-23) 02/16/25 17:15 Creatinine 1.0 mg/dL (0.5-0.9) H 02/16/25 17:15 GFR Calculation Not Reportable 02/16/25 17:15 Glucose 137 mg/dL (65-115) H 02/16/25 17:15 Calculated Osmolality 292 mOsm/kg (285-295) 02/16/25 17:15 Calcium 10.7 mg/dL (8.5-10.5) H 02/16/25 17:15 Total Bilirubin 0.4 mg/dL (0.15-1.2) 02/16/25 17:15 AST 29 U/L (0-32) 02/16/25 17:15 ALT 13 U/L (0-33) 02/16/25 17:15 Alkaline Phosphatase 98 U/L (35-105) 02/16/25 17:15 Troponin T Baseline 14 ng/L (0-10) H 02/16/25 17:15 Troponin T 120 Minute 13.17 ng/L (0-10) H 02/16/25 19:06 Delta Troponin T -0.83 ABS# (0-10) L 02/16/25 19:06 NT-Pro-B Natriuret Pep 825 pg/mL (0-450) H 02/16/25 17:15 Total Protein 6.0 g/dL (6.6-8.7) L 02/16/25 17:15 Albumin 3.3 g/dL (3.5-5.2) L 02/16/25 17:15 Globulin 2.7 g/dL (1.3-4.6) 02/16/25 17:15 All radiology interpretation(s) finalized by discharge Discharge Plan Discharge Patient Disposition: Placed in Observation Admit Provider: Shayna Porras Clinical Impression: Pleural effusion, right, Acute on chronic hypoxic respiratory failure Coding Level of Care Code ED [employer] for [employer]
[2025-02-16 17:26] LABS: Hematocrit 38.7 % (36-47); Hemoglobin 12.00 g/dL (11.27-16.99); Mean Corpuscular HGB Conc 31.0 g/dL (30-55); Mean Corpuscular Hemoglobin 30.6 pg (27-33); Mean Corpuscular Volume 98.7 fl (85-98); Nucleated Red Blood Cells % 0 %; Platelet Count 240 10^3/cmm (157-399); Red Blood Count 3.92 10^6/uL (3.85-5.65); White Blood Count 8.46 10^3/uL (3.29-11.43)
[2025-02-16 17:30] VITALS: BP 142/87; PULSE 87; RESP 20; O2SAT 96
[2025-02-16 17:35] LABS: INR 1.66 (0.8-1.2); Prothrombin Time 20.60 SECONDS (12.1-14.9)
[2025-02-16 17:36] LABS: Partial Thromboplastin Time 33.3 SECONDS (23.9-36.7)
[2025-02-16 17:47] LABS: Troponin(5th) Baseline 14 ng/L (0-10)
[2025-02-16 17:59] LABS: Alanine Aminotransferase 13 U/L (0-33); Albumin Level 3.3 g/dL (3.5-5.2); Alkaline Phosphatase 98 U/L (35-105); Anion Gap 13.5 (5-19); Aspartate Amino Transferase 29 U/L (0-32); Blood Urea Nitrogen 23 mg/dL (8-23); Calcium 10.7 mg/dL (8.5-10.5); Carbon Dioxide 29 mmol/L (22-29); Chloride 100 mmol/L (98-107); Creatinine Clr Calc Pharmacy 44.2736; Globulin 2.7 g/dL (1.3-4.6); Glucose 137 mg/dL (65-115); NT Pro B Type Natriuretic Pept 825 pg/mL (0-450); Osmolality Calculated 292 mOsm/kg (285-295); Potassium 4.5 mmol/L (3.5-5.1); Sodium 138 mmol/L (136-145); Total Protein 6.0 g/dL (6.6-8.7)
--- NOTE | 2025-02-16 18:59 | ECG_ITS ---
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
[2025-02-16 19:04] VITALS: BP 128/91; PULSE 86; RESP 20; O2SAT 96
--- NOTE | 2025-02-16 19:34 | PM.HP ---
Providers/Chief Complaint Admitting Physician: ADWOA BLANCO DO--- admitted before 12 midnight Primary Care Provider: Sánchez Macario Chief Complaint: fluid build up History of Present Illness Janet Calvillo is a 84 year old female with medical history significant for breast cancer that is metastatic to the lung with recurrent pleural effusion. Patient normally goes to outpatient cancer Center for pleural tap. Today he had been noted patient could not take the shortness of breath anymore. Patient is on home O2 at 2 L continuously but even at 2 L patient relates that she cannot move without being out of breath and she will desat from 2 L into the 80s. She states still. It was been noted that when patient is at rest pulse oximetry goes to 95%. This patient is 84 years old and not a good practice to send the patient home at this time though we do not have interventional radiology at this time to perform the thoracentesis but they will be here in the morning. Will optimize overnight and have patient go through thoracentesis and drain the right side. Right pleural effusion had been greater than the one on the left side. Patient had been evaluated in the emergency room there is not much to walk on except for issues with hypoxemia and shortness of breath due to pleural effusion. Patient denies any chest pain and seems very happy and calm with no confusion. Review of Systems Narrative: System review upon 10 organ reviewed we are entirely unremarkable except for respiratory disorder because of shortness of breath and hypoxemia secondary to increasing pleural effusion. Medications/Allergies Home Medications ?Medication ?Instructions ?Recorded ?Confirmed ?Last Taken ?Type potassium chloride 10 mEq 10 meq PO DAILY 12/28/19 02/08/25 01/27/25 History capsule,extended release tolterodine 4 mg capsule,extended 4 mg PO DAILY 12/28/19 02/08/25 01/27/25 History release 24 hr denosumab 60 mg/mL subcutaneous 60 mg SUBCUT .[id number] 06/26/20 02/08/25 06/10/24 History syringe (Prolia) cyanocobalamin (vitamin B-12) 2,500 mcg PO QAM 07/19/21 02/08/25 01/27/25 History 2,500 mcg tablet custom inserts #1 ea 08/06/23 02/08/25 Unknown Rx apixaban 5 mg tablet (Eliquis) 5 mg PO BID #60 tabs 09/11/23 02/08/2501/27/25 Rx fluoxetine 40 mg capsule 40 mg PO DAILY 12/08/23 02/08/25 01/27/25 History ropinirole 0.25 mg tablet 0.25 mg PO DAILY 12/15/23 02/08/25 01/27/25 History tizanidine 2 mg tablet 2 mg PO DAILY PRN Spasms 03/15/24 02/08/25 01/05/25 History acetaminophen 325 mg tablet 325 mg PO QID PRN Pain 04/22/24 02/08/25 Unknown History meclizine 25 mg tablet 25 mg PO QID PRN dizziness #20 tabs 10/15/24 02/08/25 01/05/25 Rx hydrocortisone 20 mg tablet See Rx Instructions .Route .COMPLEX 01/22/25 02/08/25 01/27/25 History levothyroxine 150 mcg tablet 150 mcg PO QAM 01/22/25 02/08/25 01/27/25 History lorazepam 1 mg tablet 1 mg PO Q8H PRN Anxiety 01/22/25 02/08/25 Unknown History multivitamin with minerals 1 tab PO DAILY 01/22/25 02/08/25 01/27/25 History cranberry 500 mg capsule 500 mg PO QAM 01/28/25 02/08/25 01/28/25 History lactobacillus combination no.4 3 3,000 mmu cells PO DAILY 01/28/25 02/08/25 01/28/25 History billion cell capsule (Probiotic) loperamide 2 mg capsule 2 mg PO Q4H PRN Diarrhea 01/28/25 02/08/25 01/28/25 History magnesium oxide 400 mg PO BID 01/28/25 02/08/25 01/28/25 History red yeast rice 600 mg capsule 600 mg PO BID 01/28/25 02/08/25 01/28/25 History vitamin E 268 mg (400 unit) capsule 268 mg PO DAILY 01/28/25 02/08/25 01/28/25 History vitamins-lipotropics tablet 1 tab PO BID 01/28/25 02/08/25 01/28/25 History hydrocodone 5 mg-acetaminophen 325 1 tab PO Q6H PRN pain #14 tabs 02/07/25 02/08/25 Unknown Rx mg tablet ondansetron 4 mg disintegrating 4 mg PO Q6H PRN nausea and 02/08/25 02/08/25 Unknown Rx tablet vomiting #60 tabs prochlorperazine maleate 10 mg 10 mg PO Q4H PRN mild nausea #30 02/11/25 Unknown Rx tablet (Compazine) tabs Allergies Allergy/AdvReac Type Severity Reaction Status Date / Time tetanus toxoid, adsorbed Allergy Severe unknown Verified 02/16/25 17:09 ciprofloxacin (From Cipro) Allergy Unknown ADR-Vomitin Verified 02/16/25 17:09 g erythromycin base Allergy Unknown ADR-Vomitin Verified 02/16/25 17:09 g gabapentin (From Neurontin) Allergy Unknown unknown Verified 02/16/25 17:09 Influenza Virus Vaccines Allergy Unknown unknown Verified 02/16/25 17:09 tramadol (From Ultram) Allergy Unknown unknown Verified 02/16/25 17:09 aspirin Allergy stomach Verified 02/16/25 17:09 pain, unbearable egg Allergy unknown Verified 02/16/25 17:09 Fish Containing Products Allergy ALGY-Rash Verified 02/16/25 17:09 NSAIDS (Non-Steroidal Allergy heartburn, Verified 02/16/25 17:09 Anti-Inflamma stomach pain Tetanus Vaccines and Toxoid Allergy unknown Verified 02/16/25 17:09 hydrocodone (From Vicodin) AdvReac Mild ADR-Nausea Verified 02/16/25 17:09 adhesive AdvReac Unknown unknown Verified 02/16/25 17:09 PFSH Acute PFSH: Medical History Pulmonary nodules 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 Hypothyroidism COVID-2021 History of echocardiogram 06/2023 EF 60%, Grade I/IV diastolic dysfunction, severe AV stenosis 0.99, mean gradient 40.2 mmHg, peak velocity 4.19 ms 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 Primary osteoarthritis of left knee Iron deficiency anemia Dyslipidemia Port-A-Cath in place placed 12/2022 Adrenal insufficiency hospital stay 08/2023 Reversible airway obstruction Lesion of right [place] ureter History of recurrent UTI (urinary tract infection) Interstitial lung disease Asthma Breast cancer Hydronephrosis of right kidney Osteoporosis Arthritis Aortic stenosis Hypertension DVT (deep venous thrombosis) Pulmonary embolism Obesity Surgical History History of cardiac catheterization 07/2023 no obstructive disease Hx of tubal ligation Hx of cystoscopy Hx of colonoscopy Age 65 Hx of cholecystectomy H/O: hysterectomy Hx of cataract surgery S/P tonsillectomy Family History Father , AT 92 Congestive heart failure (CHF) Mother , AT 100 of unknown cause Other CAD (coronary artery disease) Cancer Diabetes Hyperlipidemia Hypertension Stroke Denies family history of Psychiatric illness Chronic kidney disease (CKD) Suicide Family history of premature coronary artery disease Lung disease Social History Smoking and tobacco/nicotine status: never used tobacco/nicotine Alcohol intake: never Substance/Drug Use: never Marital status: / Current occupational status: retired and disabled Vitals/I&O/Wt Last Vital Signs Temp 97.9 F 02/16/25 17:02 Pulse 86 02/16/25 19:04 Resp 20 H 02/16/25 19:04 BP 128/91 02/16/25 19:04 Pulse Ox 96 02/16/25 19:04 O2 Del Method Nasal Cannula 02/16/25 19:04 O2 Flow Rate 2 02/16/25 17:02 Weight last 48 hrs Weight 78.471 kg Physical Exam Narrative: Patient is not ill-appearing but weak. Case has been discussed with the patient and she understood the plan of care. HEENT normocephalic atraumatic neck neck is supple cardiovascular heart rate is regular lungs are pretty much clear but diminished at the bases abdomen soft nontender nondistended unremarkable extremities are intact no edema has good pulses neurology has no focality patient is pretty much alert awake oriented x 3. Lab studies where unremarkable. Data 02/16/25 21:13 02/16/25 17:15 A&P Assessment and plan 1. Hypoxemia: 2. Pulmonary nodules: 3. Pleural effusion, right: 4. Hypoxic respiratory failure: 5. COPD exacerbation: 6. Status post transcatheter aortic valve replacement (TAVR) using bioprosthesis: 7. Shortness of breath: 8. Breast CA: 9. Pulmonary embolism: 10. DVT (deep venous thrombosis): 11. Exertional shortness of breath: Plan: #1 Expanding bilateral pleural effusion right greater than left with symptomatology - Will admit patient to general medical floor on oxygen - Patient is on chronic home oxygen at 2 L but now very symptomatic on it because of expanding pleural effusion mostly on the right side. - I have ordered interventional procedure and consulted the interventional for the morning to have right sided thoracentesis to drain as much as possible the pleural fluid and for cell count along with cultures - Patient needed to be observed after the thoracentesis tomorrow before discharging. - Make sure that patient is hemodynamically stable and not hypotensive at the time of discharge - Patient should be able to walk around with no symptomatology prior to discharge tomorrow #2 Chronic illnesses such as history of PE/DVT/COPD/TAVR/ --Should be handled with ongoing medical custodial and medication inpatient medical list of the medicines -Please update so that medication can be reconciled while in house. PDMP PDMP Reviewed: Not Reviewed Attestations Medical Necessity Statement*: Patient is with expanding right-sided pleural effusion course and exertional shortness of breath and hypoxemia even on home O2 at 2 L should be allowed at least an observation stay 23 hours stay to optimize care prior to sending patient home. Coding Level of Care Code 55674 Diagnoses Hypoxemia R09.02 Pulmonary nodules R91.8 Pleural effusion, right J90 Hypoxic respiratory failure J96.91 COPD exacerbation J44.1 Status post transcatheter aortic valve replacement (TAVR) using bioprosthesis Z95.3 Shortness of breath R06.02 Breast CA C50.919 Pulmonary embolism I26.99 DVT (deep venous thrombosis) I82.409 Exertional shortness of breath R06.02 Time Spent (min) 60
[2025-02-16 19:43] LABS: Troponin 5 2HR 13.17 ng/L (0-10); Troponin 5 2HR Delta -0.83 ABS# (0-10)
[2025-02-16 21:25] LABS: Hematocrit 39.8 % (36-47); Hemoglobin 12.20 g/dL (11.27-16.99); Mean Corpuscular HGB Conc 30.7 g/dL (30-55); Mean Corpuscular Hemoglobin 30.7 pg (27-33); Mean Corpuscular Volume 100.0 fl (85-98); Nucleated Red Blood Cells % 0 %; Platelet Count 238 10^3/cmm (157-399); Red Blood Count 3.98 10^6/uL (3.85-5.65); White Blood Count 8.05 10^3/uL (3.29-11.43)
[2025-02-16 22:10] VITALS: BP 110/67; PULSE 82; PULSE 83; RESP 18; O2SAT 96
[2025-02-16 23:00] VITALS: BP 124/84; PULSE 85; O2SAT 95
[2025-02-16 23:21] LABS: Troponin 5 6HR 13.55 ng/L (0-10)
[2025-02-16 23:24] LABS: Troponin 5 6HR Delta -0.45 ng/L (0-12)
[2025-02-16 23:30] VITALS: BP 114/81; PULSE 83; O2SAT 97
[2025-02-17] VITALS (11 sets, daily range): BP systolic 105–127; BP diastolic 60–81; PULSE 82–94; RESP 16–22; TEMP 36.4–36.9; O2SAT 90–98
[2025-02-17 05:18] LABS: Hematocrit 37.0 % (36-47); Hemoglobin 11.50 g/dL (11.27-16.99); Mean Corpuscular HGB Conc 31.1 g/dL (30-55); Mean Corpuscular Hemoglobin 30.5 pg (27-33); Mean Corpuscular Volume 98.1 fl (85-98); Nucleated Red Blood Cells % 0 %; Platelet Count 215 10^3/cmm (157-399); Red Blood Count 3.77 10^6/uL (3.85-5.65); White Blood Count 6.07 10^3/uL (3.29-11.43)
[2025-02-17 05:45] LABS: Alanine Aminotransferase 12 U/L (0-33); Albumin Level 3.1 g/dL (3.5-5.2); Alkaline Phosphatase 93 U/L (35-105); Anion Gap 14.0 (5-19); Aspartate Amino Transferase 26 U/L (0-32); Blood Urea Nitrogen 22 mg/dL (8-23); Calcium 10.6 mg/dL (8.5-10.5); Carbon Dioxide 29 mmol/L (22-29); Chloride 102 mmol/L (98-107); Creatinine Clr Calc Pharmacy 56.7385; Globulin 2.8 g/dL (1.3-4.6); Glucose 86 mg/dL (65-115); Magnesium 2.1 mg/dL (1.7-2.3); Osmolality Calculated 295 mOsm/kg (285-295); Potassium 4.0 mmol/L (3.5-5.1); Sodium 141 mmol/L (136-145); Total Protein 5.9 g/dL (6.6-8.7)
--- NOTE | 2025-02-17 09:30 | US_ITS ---
WS: [id number] ULTRASOUND-GUIDED THORACENTESIS CLINICAL INFORMATION: recurrent right pleural effusion COMPARISON: None. PROCEDURE: Informed consent: The risks, benefits, and alternatives of the procedure were discussed with the patient. Verbal and written consent was obtained. Timeout: A timeout was performed to confirm the correct patient, procedure, and site. Site: RIGHT chest Preparation: A suitable skin site was identified. The patient was prepped and draped in usual sterile fashion. Lidocaine 1% was used for local anesthesia. Catheter: 4 [place] One-Step catheter. Fluid Volume: 1000 ml Color: Bloody serous Discarded safely. Sent to the laboratory for analysis. Complications: None. / thoracentesis [id number] IMPRESSION: Uncomplicated ultrasound-guided RIGHT thoracentesis with removal of 1000 cc.
--- NOTE | 2025-02-17 13:25 | PM.PN ---
Subjective Subjective: 84-year-old female states that she had breast cancer diagnosed 2021 in September but then was sick with COVID lost 30 pounds and was just trying to survive through 2022. She had 2 rounds of chemotherapy in 2023 and states she had to break for aortic valve replacement. She has had history of aortic valve stenosis followed by Dr. Boo and DVT and PE as well as asthma. From Dr. Avalos's note patient had an enlarging left breast mass October 2022 lobulated suspicious mass 2.5 x 3.5 on mammogram 10/28/2022. Ultrasound-guided biopsy showed grade 3 invasive ductal carcinoma on 11/13/2022 she had neoadjuvant therapy 01/08/2023. April 02, 2024 she had FDG avid left breast mass. Patient had left breast lumpectomy by Dr. Palacios at [facility]. Whole breast radiation treatments from July 13 through July to 2024 PET scan 11/05/2024 showed extensive pulmonary lesions FDG avid. Patient had bronchoscopy January 05, 2025 she has also had bronch and December. Patient has cancer in right lung and pleural fluid admitted for thoracentesis which is pending. Patient reports a poor appetite Vitals/I&O/Wt Last Vital Signs Temp 98.4 F 02/17/25 11:02 Pulse 93 02/17/25 11:02 Resp 17 02/17/25 11:02 BP 118/79 02/17/25 11:02 Pulse Ox 98 02/17/25 11:02 O2 Del Method Nasal Cannula 02/17/25 11:02 O2 Flow Rate 3 02/17/25 11:02 02/16/25 02/17/25 02/17/25 22:59 06:59 14:59 Intake Total 120 / 120 Output Total 60 / 60 Balance -60 / -60 120 / 120 Weight last 48 hrs Weight 82.696 kg Weight 85.638 kg Weight 78.471 kg Physical Exam Narrative: General well-developed well-nourished female in no acute cardiopulmonary distress CV regular rate and rhythm 3/6 systolic ejection murmur best heard at the right upper sternal border Lungs left lung is clear right lung crackles and some air movement at the very right upper lung but diminished in the right lower lung field Abdomen positive bowel tones soft nontender Calves trace ankle edema Data 02/17/25 05:09 02/17/25 05:09 A&P Assessment and plan 1. Hypoxemia: Large right pleural effusion will support with oxygen pending thoracentesis 2. Pulmonary nodules: Known metastatic lung disease 3. Pleural effusion, right: Known metastatic breast cancer 4. Status post transcatheter aortic valve replacement (TAVR) using bioprosthesis: Stable 5. 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 Chronic pulmonary embolism without acute cor pulmonale, unspecified pulmonary embolism type: Patient is anticoagulation with Eliquis 5 mg twice a day is chronic but currently held 7. Chronic deep vein thrombosis (DVT) of proximal vein of both lower extremities: As above Plan: Per request of Steven Jalloh interventional radiologist have changed the CT-guided thoracentesis to ultrasound-guided thoracentesis right lung. 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, estrogen receptor negative C50.012; Z17.1 Breast location: nipple Estrogen receptor status: negative Patient sex: female Laterality: left Chronic pulmonary embolism without acute cor pulmonale, unspecified pulmonary embolism type I27.82 Pulmonary embolism type: unspecified Chronicity: chronic Acute cor pulmonale presence: without acute cor pulmonale Chronic deep vein thrombosis (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
--- NOTE | 2025-02-17 15:23 | PC.NURSE ---
Dr. Jalloh in with patient discussing thoracentesis. Patient consents to procedure. Time out preferred by Dr. Jalloh, [employer], chargeback specialist and myself at 1525. Patient is sitting on the side of the bed comfortably. Pulse ox is 96% on 3L NC with a HR of 111 at beginning of procedure. Patient is currently draining; tolerating procedure well. Patient's vitals remain stable, O2 at 95% on 3L NC with a HR of 90. 1539 procedure is complete; patient tolerated well. Resting comfortably in bed now, chest XR ordered per Dr Jalloh just waiting imaging and results, will continue to monitor patient.
--- NOTE | 2025-02-17 15:37 | XR_ITS ---
WS: [id number] CHEST XRAY TECHNIQUE: Portable chest. CLINICAL INFORMATION: post R thoracentesis COMPARISON: 02/16/2025 FINDINGS: Heart: Cardiomegaly. RIGHT central venous catheter. aVR Lungs: Improved RIGHT pleural effusion postthoracentesis. Compressive atelectasis and subtotal consolidation RIGHT lower lobe. LEFT lung is well aerated with multiple pulmonary metastasis similar to previous. Surgical clips LEFT axilla. Bones: Osteopenia. XR/XR chest 1V portable [id number] IMPRESSION: 1. Improved RIGHT pleural effusion postthoracentesis. Consolidation RIGHT lowe r lobe. No pneumothorax.
[2025-02-17 16:00] LABS: Cyto Order Verification No Order
[2025-02-17 16:01] LABS: Appearance, Pleural Fluid CLOUDY (CLEAR); Color, Pleural Fluid Red (Pale Yellow); PATH Referral YES
[2025-02-17 16:02] LABS: Fluid Laterality RIGHT PEURAL; PATH Referal YES
[2025-02-17 16:06] LABS: Mononuclear %, Pleural Fluid 96 %; Mononuclear, Pleural Fluid # 0.870 10^3/uL; Polynuclear Cells, Pleural # 0.037 10^3/uL; Polynuclear Cells, Pleural % 4 %; WBC Pleural Fluid 907.000 /uL (0-1000)
--- NOTE | 2025-02-17 17:17 | PC.PHAR ---
Patient states she has Rina from [facility] help with Medication . I called and didn't receive a call back
[2025-02-18] VITALS (12 sets, daily range): BP systolic 107–132; BP diastolic 60–84; PULSE 90–106; RESP 16–30; TEMP 36.4–37.2; O2SAT 92–97
--- NOTE | 2025-02-18 07:39 | PC.NURSE ---
Late entry 02/18/2025 at 0530. Provider was notified that pt was experiencing dyspnea at rest with labored breathing and increased O2 demand. Vital signs reported and documented. No new order received. Will continue to monitor.
--- NOTE | 2025-02-18 11:53 | PM.DCS ---
Discharge Providers Date of Admission: 02/16/25 19:23 Date of Discharge: February 18, 2025 Attending Provider at Admission: Shayna Porras MD Attending Provider at Discharge: Eben Mills MD Consults: Sapphire Mckeon MD pulmonology Primary Care Provider: Sánchez Macario Diagnoses at Discharge Discharge Diagnosis 1. Hypoxemia: Details from hospital stay: Patient requiring 3 L per nasal cannula. She is more tachycardic post thoracentesis I suspect due to fluid shift. 2. Pulmonary nodules: Details from hospital stay: Recurrent breast 3. Pleural effusion, right: Details from hospital stay: I have started low-dose furosemide 20 mg daily and bumped her potassium replacement from 10 milliequivalents up to 20 mill equivalents. I have consulted Dr. Mckeon to help manage this problem outpatient and I am attempting to make referral for PleurX catheter. I also spoke with Dr. Avalos regarding the malignant pleural effusion and history of PE and DVT on anticoagulation. He is going to make sure the patient is seen upcoming we can get chemotherapy started soon as possible. Patient was seen by Dr. Sapphire Mckeon in consultation and will follow-up with her outpatient I have placed a call to Dr. Chiquis Wray at [place] [id number] [phone] and also 1 to [facility] in [place] for the nursing supervisor filtration. I am trying to arrange a outpatient PleurX catheter. Patient and her daughter want to discharge from the hospital today and will follow-up outpatient. When procedure is scheduled they will need to hold the Eliquis for 48 hours 4. Status post transcatheter aortic valve replacement (TAVR) using bioprosthesis: Details from hospital stay: Unchanged 5. 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 Chronic pulmonary embolism without acute cor pulmonale, unspecified pulmonary embolism type: Details from hospital stay: Continue on apixaban 5 mg twice a day for now due to high risk of recurrent PE and DVT however she is also at risk of worsening bleeding and her pleural effusion 7. 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 Patient normally goes to outpatient cancer Center for pleural tap. Today he had been noted patient could not take the shortness of breath anymore. Patient is on home O2 at 2 L continuously but even at 2 L patient relates that she cannot move without being out of breath and she will desat from 2 L into the 80s. She states still. It was been noted that when patient is at rest pulse oximetry goes to 95%. This patient is 84 years old and not a good practice to send the patient home at this time though we do not have interventional radiology at this time to perform the thoracentesis but they will be here in the morning. Will optimize overnight and have patient go through thoracentesis and drain the right side. Right pleural effusion had been greater than the one on the left side. Patient had been evaluated in the emergency room there is not much to walk on except for issues with hypoxemia and shortness of breath due to pleural effusion. Hospital Course Hospital Course 84-year-old female states that she had breast cancer diagnosed 2021 in September but then was sick with COVID lost 30 pounds and was just trying to survive through 2022. She had 2 rounds of chemotherapy in 2023 and states she had to break for aortic valve replacement. She has had history of aortic valve stenosis followed by Dr. Boo and DVT and PE as well as asthma. From Dr. Avalos's note patient had an enlarging left breast mass October 2022 lobulated suspicious mass 2.5 x 3.5 on mammogram 10/28/2022. Ultrasound-guided biopsy showed grade 3 invasive ductal carcinoma on 11/13/2022 she had neoadjuvant therapy 01/08/2023. April 02, 2024 she had FDG avid left breast mass. Patient had left breast lumpectomy by Dr. Palacios at [facility]. Whole breast radiation treatments from July 13 through July to 2024 PET scan 11/05/2024 showed extensive pulmonary lesions FDG avid. Patient had bronchoscopy January 05, 2025 she has also had bronch and [place]. Patient has cancer in right lung and pleural fluid admitted for thoracentesis which is pending. Patient had thoracentesis January 28, 2025 and again yesterday on February 17, 2025. This was bloody both times and will continue to accumulate unless the chemotherapy is effective. I spoke with the patient and also with Dr. Mckeon and we recommend that she has a PleurX catheter. That is not a procedure done by Dr. Mckeon or interventional radiology here at [facility]. I am attempting to make referral to [facility] Dr. Wray and am awaiting callback to see if that is a procedure that they do at [phone] I have asked discharge planning to arrange a outpatient PleurX catheter at [facility] if that is possible Physical Exam Narrative: General well-developed well-nourished female in no acute cardiopulmonary distress CV regular rate and rhythm 3/6 systolic ejection murmur best heard at the right upper sternal border Lungs left lung is clear right lung crackles and some air movement at the right upper lung but diminished in the right lower lung field Abdomen positive bowel tones soft nontender Calves trace ankle edema Discharge Data Studies Completed and Pending Completed Studies During Hospitalization Category Date Time Status XR chest 1V portable [id number] Stat Exams 02/16/25 16:59 Completed XR chest 1V portable [id number] Stat Exams 02/17/25 15:37 Completed US thoracentesis [id number] Routine Ultrasound 02/17/25 09:30 Completed Pending at discharge Category Date Time Status Amylase, Pleural Fluid Routine Lab 02/17/25 15:46 Received Radiology Impressions Thoracentesis Ultrasound 02/17/25 09:30 IMPRESSION: Uncomplicated ultrasound-guided RIGHT thoracentesis with removal of 1000 cc. Chest X-Ray 02/17/25 15:37 IMPRESSION: 1. Improved RIGHT pleural effusion postthoracentesis. Consolidation RIGHT lower lobe. No pneumothorax. Laboratory Results WBC 6.07 10^3/uL (3.29-11.43) 02/17/25 05:09 RBC 3.77 10^6/uL (3.85-5.65) L 02/17/25 05:09 Hgb 11.50 g/dL (11.27-16.99) 02/17/25 05:09 Hct 37.0 % (36-47) 02/17/25 05:09 MCV 98.1 fl (85-98) H 02/17/25 05:09 MCH 30.5 pg (27-33) 02/17/25 05:09 MCHC 31.1 g/dL (30-55) 02/17/25 05:09 RDW 13.2 % (12.1-15.1) 02/17/25 05:09 Plt Count 215 10^3/cmm (157-399) 02/17/25 05:09 MPV 10.3 fL (7.4-10.4) 02/17/25 05:09 Neut % (Auto) 72.7 % 02/17/25 05:09 Lymph % (Auto) 9.7 % 02/17/25 05:09 [place] % (Auto) 9.7 % 02/17/25 05:09 Eos % (Auto) 6.6 % 02/17/25 05:09 Baso % (Auto) 1.0 % 02/17/25 05:09 Neut # (Auto) 4.41 10^3/uL (1.8-7.7) 02/17/25 05:09 Lymph # (Auto) 0.6 10^3/uL (0.8-4.8) L 02/17/25 05:09 [place] # (Auto) 0.6 10^3/uL (0.2-0.9) 02/17/25 05:09 Eos # (Auto) 0.4 10^3/uL (0.0-0.8) 02/17/25 05:09 Baso # (Auto) 0.1 10^3/uL (0.0-0.1) 02/17/25 05:09 Nucleated RBC % (auto) 0 % 02/17/25 05:09 Total Counted Not Reportable 02/17/25 15:46 Nucleated RBCs # 0.0 /100WBC 02/17/25 05:09 PT 20.60 SECONDS (12.1-14.9) H 02/16/25 17:15 INR 1.66 (0.8-1.2) H 02/16/25 17:15 APTT 33.3 SECONDS (23.9-36.7) 02/16/25 17:15 Sodium 141 mmol/L (136-145) 02/17/25 05:09 Potassium 4.0 mmol/L (3.5-5.1) 02/17/25 05:09 Chloride 102 mmol/L (98-107) 02/17/25 05:09 Carbon Dioxide 29 mmol/L (22-29) 02/17/25 05:09 Anion Gap 14.0 (5-19) 02/17/25 05:09 BUN 22 mg/dL (8-23) 02/17/25 05:09 Creatinine 0.8 mg/dL (0.5-0.9) 02/17/25 05:09 GFR Calculation Not Reportable 02/17/25 05:09 Glucose 86 mg/dL (65-115) 02/17/25 05:09 Calculated Osmolality 295 mOsm/kg (285-295) 02/17/25 05:09 Calcium 10.6 mg/dL (8.5-10.5) H 02/17/25 05:09 Phosphorus 2.9 mg/dL (2.5-4.5) 02/17/25 05:09 Magnesium 2.1 mg/dL (1.7-2.3) 02/17/25 05:09 Total Bilirubin 0.3 mg/dL (0.15-1.2) 02/17/25 05:09 AST 26 U/L (0-32) 02/17/25 05:09 ALT 12 U/L (0-33) 02/17/25 05:09 Alkaline Phosphatase 93 U/L (35-105) 02/17/25 05:09 Troponin T Baseline 14 ng/L (0-10) H 02/16/25 17:15 Troponin T 120 Minute 13.17 ng/L (0-10) H 02/16/25 19:06 Delta Troponin T -0.83 ABS# (0-10) L 02/16/25 19:06 Troponin T Hi Sens 6Hr 13.55 ng/L (0-10) H 02/16/25 22:59 Troponin T Hi Sens 6Hr Delta -0.45 ng/L (0-12) L 02/16/25 22:59 NT-Pro-B Natriuret Pep 825 pg/mL (0-450) H 02/16/25 17:15 Total Protein 5.9 g/dL (6.6-8.7) L 02/17/25 05:09 Albumin 3.1 g/dL (3.5-5.2) L 02/17/25 05:09 Globulin 2.8 g/dL (1.3-4.6) 02/17/25 05:09 Fld Crystal Laterality Right peural 02/17/25 15:46 Pleural Color Red (Pale Yellow) H 02/17/25 15:46 Pleural Appearance Cloudy (CLEAR) 02/17/25 15:46 Pleural pH 7.50 (6.5-7.5) 02/17/25 15:46 Pleural WBC 907.000 /uL (0-1000) 02/17/25 15:46 Pleural RBC 69.000 10^3/uL 02/17/25 15:46 Pleural Mononuc # Auto 0.870 10^3/uL 02/17/25 15:46 Pleural Other Cells Not Reportable 02/17/25 15:46 Pleural Polynuclear % 4 % 02/17/25 15:46 Pleural Polynuclear # 0.037 10^3/uL 02/17/25 15:46 Pleural Mononuclear % 96 % 02/17/25 15:46 Pleural Other Cells Rt Not Reportable 02/17/25 15:46 Pleural LDH 1331 U/L 02/17/25 15:46 Pleural Glucose 99.0 mg/dL 02/17/25 15:46 Path Cons w/Slide Yes 02/17/25 15:46 Pathology Message Yes 02/17/25 15:46 Vitals Last Vital Signs Temp 97.9 F 02/18/25 11:31 Pulse 102 H 02/18/25 11:31 Resp 20 H 02/18/25 11:31 BP 120/82 02/18/25 11:31 Pulse Ox 96 02/18/25 11:31 O2 Del Method Nasal Cannula 02/18/25 11:31 O2 Flow Rate 4 02/18/25 05:30 Discharge Plan Discharge Patient Disposition: Home Condition: Stable Prescriptions: New furosemide [Lasix] 20 mg tablet 20 mg PO DAILY Qty: 30 0RF polyethylene glycol 3350 [Miralax] 17 gram/dose powder 4 g PO DAILY Qty: 238 0RF Continued tolterodine 4 mg capsule,extended release 24hr 4 mg PO DAILY Prolia 60 mg/mL syringe 60 mg SUBCUT .[id number] cyanocobalamin (vitamin B-12) 2,500 mcg tablet 2,500 mcg PO QAM (DME) custom inserts See Rx Instructions .Route .MEDSUPPLY Qty: 1 0RF Rx Instructions: As directed tizanidine 2 mg tablet 2 mg PO DAILY PRN (Reason: Spasms) ondansetron 4 mg tablet,disintegrating 4 mg PO Q6H PRN (Reason: nausea and vomiting) Qty: 60 6RF Rx Instructions: 1-2 tablets as needed every 6 hours as needed for nausea prochlorperazine maleate [Compazine] 10 mg tablet 10 mg PO Q4H PRN (Reason: mild nausea) Qty: 30 3RF Eliquis 5 mg tablet 5 mg PO BID Qty: 60 0RF levothyroxine 150 mcg tablet 150 mcg PO QAM hydrocortisone 20 mg tablet See Rx Instructions .ROUTE .COMPLEX Rx Instructions: TAKE 1 TABLET BY MOUTH IN THE MORNING AND 1/2 (ONE-HALF) TABLET IN THE EVENING. multivitamin with minerals Tablet 1 tab PO DAILY fluoxetine 40 mg capsule 40 mg PO DAILY ropinirole 0.25 mg tablet 0.25 mg PO DAILY acetaminophen 325 mg Tablet 325 mg PO QID PRN (Reason: Pain) meclizine 25 mg tablet 25 mg PO QID PRN (Reason: dizziness) Qty: 20 0RF loperamide [Imodium] 2 mg Capsule 2 mg PO Q4H PRN (Reason: Diarrhea) Rx Instructions: administer after each loose stool until symptoms controlled; do not exceed 8 mg per 24 hrs vitamin E 268 mg (400 unit) Capsule 268 mg PO DAILY cranberry 500 mg Capsule 500 mg PO QAM Rx Instructions: administer with meals Lipoflavonoid Tablet 1 tab PO BID red yeast rice 600 mg Capsule 600 mg PO BID Rx Instructions: give with meal/snack Probiotic 3 billion cell Capsule 3,000 mmu cells PO DAILY Rx Instructions: administer with a meal magnesium oxide 400 mg magnesium Tablet 400 mg PO BID hydrocodone-acetaminophen 5-325 mg tablet 1 tab PO Q6H PRN (Reason: pain) Qty: 14 0RF calcium carbonate [Calcium 600] 600 mg calcium (1,500 mg) Tablet 600 mg PO DAILY docusate sodium [Colace] 100 mg Capsule 100 mg PO BID cholecalciferol (vitamin D3) [Vitamin D3] 125 mcg (5,000 unit) Tablet 125 mcg PO DAILY psyllium husk [Daily Fiber] 0.4 gram Capsule 0.4 g PO DAILY Changed potassium chloride 10 mEq capsule, extended release 20 meq PO DAILY Qty: 30 0RF 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 OK for DC: Hospitalist Other Ambulatory Orders: Basic Metabolic Panel (Routine) Timeframe: 1 Week Facility: [facility] - Location: Lab - Main Lab Ordered By: Eben Mills Referrals: Sapphire Mckeon MD [Physician, Pulmonology] - 1 week Luis Avalos MD [Hospitalist, Oncology] - 4-7 days Sánchez Macario [Primary Care Provider, Family Practice] - 4-7 days Discharge Diet: Regular Discharge Activity: Increase activity as tolerated Patient Instructions: Breast Cancer in Women (GEN), Pleural Effusion (GEN), Pericardial Effusion (GEN), Thoracentesis (GEN), Opioid Safety, Patient Portal & Zhanna Instructions Activity Restrictions/Additional Instructions: You have a malignant pleural effusion which means that you have fluid between your lung and chest wall accumulating because of the breast cancer that has spread to that space. This fluid will continue to reaccumulate until chemotherapy is effective. You need to have a PleurX catheter which is a drain that will allow this to be drained without having to undergo a thoracentesis. We are attempting to make a referral for you to have this done as we do not perform this procedure here at [facility] I have also started you on furosemide 20 mg daily as you are not on a diuretic and increased your potassium chloride to 20 mEq from 10 mill equivalents. Additionally you are on a blood thinner Eliquis due to history of lung and leg blood clots which are important to treat. You are at risk of developing more clots especially with your cancer We do find the fluid drawn from your lung to be bloody and that is a potential risk that needs to be evaluated frequently by your physician and cancer specialist. Once you have a date for your PleurX catheter you will need to hold your Eliquis for 48 hours before your procedure Discharge Attestations Time Spent in Discharge Care*: greater than 30 min Time Spent in Smoking Cessation: Patient is not a smoker Status at Discharge: Cognitive status at discharge: cognitively intact, Behavioral status at discharge: cooperative, Quality Metrics Clinical Quality Measures [ No reported AMI, CVA or VTE this stay] Coding Level of Care Code 22291 Diagnoses Hypoxemia R09.02 Pulmonary nodules R91.8 Pleural effusion, right J90 Status post transcatheter aortic valve replacement (TAVR) using bioprosthesis Z95.3 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, estrogen receptor negative C50.012; Z17.1 Breast location: nipple Estrogen receptor status: negative Laterality: left Patient sex: female Chronic pulmonary embolism without acute cor pulmonale, unspecified pulmonary embolism type I27.82 Acute cor pulmonale presence: without acute cor pulmonale Chronicity: chronic Pulmonary embolism type: unspecified Chronic deep vein thrombosis (DVT) of proximal vein of both lower extremities I82.5Y3 Affected thrombotic vein of extremity: unspecified lower extremity proximal vein Chronicity: chronic DVT location: lower extremity Laterality: bilateral Time Spent (min) 55
--- NOTE | 2025-02-18 15:55 | PM.CONSULT ---
Providers/Reason For Consult Consulting Physician/Specialty*: Dr Mills Reason for Consult*: Recurrent pleural effusion Attending Physician: Eben Mills MD Primary Care Provider: Sánchez Macario History of Present Illness History of Present Illness Janet Calvillo is a 84 year old female breast cancer with past medical history of recurrent right-sided pleural effusion status postthoracentesis 3 times in the last 1 month, status post TAVR, left breast cancer, Dr. Avalos patient admitted to the hospital with increased shortness of breath found to have right pleural effusion and underwent thoracentesis yesterday for the third time in a month for recurrent malignant pleural effusion 1000 mL fluid removed. Patient feels well uses 2 to 3 L of oxygen via mask which feels more comfortable for her. Medications/Allergies Home Medications ?Medication ?Instructions ?Recorded ?Confirmed ?Last Taken ?Type tolterodine 4 mg capsule,extended 4 mg PO DAILY 12/28/19 02/18/25 02/16/25 History release 24 hr denosumab 60 mg/mL subcutaneous 60 mg SUBCUT .[id number] 06/26/20 02/18/25 06/10/24 History syringe (Prolia) cyanocobalamin (vitamin B-12) 2,500 mcg PO QAM 07/19/21 02/18/25 02/16/25 History 2,500 mcg tablet custom inserts #1 ea 08/06/23 02/18/25 Unknown Rx apixaban 5 mg tablet (Eliquis) 5 mg PO BID #60 tabs 09/11/23 02/18/25 01/27/25 Rx fluoxetine 40 mg capsule 40 mg PO DAILY 12/08/23 02/18/25 02/16/25 History ropinirole 0.25 mg tablet 0.25 mg PO DAILY 12/15/23 02/18/25 02/16/25 History tizanidine 2 mg tablet 2 mg PO DAILY PRN Spasms 03/15/24 02/18/25 02/16/25 History acetaminophen 325 mg tablet 325 mg PO QID PRN Pain 04/22/24 02/18/25 Unknown History meclizine 25 mg tablet 25 mg PO QID PRN dizziness #20 tabs 10/15/24 02/18/25 01/05/25 Rx hydrocortisone 20 mg tablet See Rx Instructions .Route .COMPLEX 01/22/25 02/18/25 01/27/25 History levothyroxine 150 mcg tablet 150 mcg PO QAM 01/22/25 02/18/25 02/16/25 07:00 History multivitamin with minerals 1 tab PO DAILY 01/22/25 02/18/25 02/15/25 History cranberry 500 mg capsule 500 mg PO QAM 01/28/25 02/18/25 02/16/25 History lactobacillus combination no.4 3 3,000 mmu cells PO DAILY 01/28/25 02/18/25 02/16/25 History billion cell capsule (Probiotic) loperamide 2 mg capsule 2 mg PO Q4H PRN Diarrhea 01/28/25 02/18/25 01/28/25 History magnesium oxide 400 mg PO BID 01/28/25 02/18/25 02/16/25 History red yeast rice 600 mg capsule 600 mg PO BID 01/28/25 02/18/25 02/16/25 History vitamin E 268 mg (400 unit) capsule 268 mg PO DAILY 01/28/25 02/18/25 02/16/25 History vitamins-lipotropics tablet 1 tab PO BID 01/28/25 02/18/25 02/16/25 History hydrocodone 5 mg-acetaminophen 325 1 tab PO Q6H PRN pain #14 tabs 02/07/25 02/18/25 Unknown Rx mg tablet ondansetron 4 mg disintegrating 4 mg PO Q6H PRN nausea and 02/08/25 02/18/25 Unknown Rx tablet vomiting #60 tabs prochlorperazine maleate 10 mg 10 mg PO Q4H PRN mild nausea #30 02/11/25 02/18/25 Unknown Rx tablet (Compazine) tabs calcium carbonate (Calcium 600) 600 mg PO DAILY 02/18/25 02/18/25 02/16/25 History cholecalciferol (vitamin D3) 125 125 mcg PO DAILY 02/18/25 02/18/25 02/16/25 History mcg (5,000 unit) tablet (Vitamin D3) docusate sodium 100 mg capsule 100 mg PO BID 02/18/25 02/18/25 02/16/25 History (Colace) furosemide 20 mg tablet (Lasix) 20 mg PO DAILY #30 tabs 02/18/25 Unknown Rx polyethylene glycol 3350 17 4 g PO DAILY #238 grams 02/18/25 Unknown Rx gram/dose oral powder (Miralax) potassium chloride 10 mEq 20 meq (2 x 10 mEq) PO DAILY #30 02/18/25 02/18/25 02/16/25 Rx capsule,extended release caps psyllium husk 0.4 gram capsule 0.4 g PO DAILY 02/18/25 02/18/25 02/16/25 History (Daily Fiber) Allergies Allergy/AdvReac Type Severity Reaction Status Date / Time tetanus toxoid, adsorbed Allergy Severe unknown Verified 02/16/25 17:09 ciprofloxacin (From Cipro) Allergy Unknown ADR-Vomitin Verified 02/16/25 17:09 g erythromycin base Allergy Unknown ADR-Vomitin Verified 02/16/25 17:09 g gabapentin (From Neurontin) Allergy Unknown unknown Verified 02/16/25 17:09 Influenza Virus Vaccines Allergy Unknown unknown Verified 02/16/25 17:09 tramadol (From Ultram) Allergy Unknown unknown Verified 02/16/25 17:09 aspirin Allergy stomach Verified 02/16/25 17:09 pain, unbearable egg Allergy unknown Verified 02/16/25 17:09 Fish Containing Products Allergy ALGY-Rash Verified 02/16/25 17:09 NSAIDS (Non-Steroidal Allergy heartburn, Verified 02/16/25 17:09 Anti-Inflamma stomach pain Tetanus Vaccines and Toxoid Allergy unknown Verified 02/16/25 17:09 hydrocodone (From Vicodin) AdvReac Mild ADR-Nausea Verified 02/16/25 17:09 adhesive AdvReac Unknown unknown Verified 02/16/25 17:09 Current Medications Generic Name Dose Route Start Last Admin Trade Name Freq PRN Reason Stop Dose Admin Docusate Sodium 100 mg 02/17/25 05:00 02/18/25 05:13 Docusate Sodium 100 Mg Capsule PO Not Given BID GREGORIO Pantoprazole Sodium 40 mg 02/17/25 05:00 02/18/25 05:[address] 40 Mg Tablet PO 40 mg DAILY GREGORIO Administration Senna 17.2 mg 02/16/25 21:04 02/17/25 20:17 Sennosides 8.6 Mg Tablet PO 17.2 mg BEDTIME GREGORIO Administration PFSH Acute PFSH: Medical History (Updated 02/18/25 @ 11:52 by Eben Mills MD) Pleural effusion Pulmonary nodules 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 Hypothyroidism COVID-2021 History of echocardiogram 06/2023 EF 60%, Grade I/IV diastolic dysfunction, severe AV stenosis 0.99, mean gradient 40.2 mmHg, peak velocity 4.19 ms 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 Primary osteoarthritis of left knee Iron deficiency anemia Dyslipidemia Port-A-Cath in place placed 12/2022 Adrenal insufficiency hospital stay 08/2023 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 History of recurrent UTI (urinary tract infection) Interstitial lung disease Asthma Breast cancer Hydronephrosis of right kidney Osteoporosis Arthritis Aortic stenosis Hypertension DVT (deep venous thrombosis) Pulmonary embolism Obesity Surgical History History of cardiac catheterization 07/2023 no obstructive disease Hx of tubal ligation Hx of cystoscopy Hx of colonoscopy Age 65 Hx of cholecystectomy H/O: hysterectomy Hx of cataract surgery S/P tonsillectomy Family History Father , AT 92 Congestive heart failure (CHF) Mother , AT 100 of unknown cause Other CAD (coronary artery disease) Cancer Diabetes Hyperlipidemia Hypertension Stroke Denies family history of Psychiatric illness Chronic kidney disease (CKD) Suicide Family history of premature coronary artery disease Lung disease Social History Smoking and tobacco/nicotine status: never used tobacco/nicotine Alcohol intake: never Substance/Drug Use: never Marital status: / Current occupational status: retired and disabled Vitals/I&O/Wt Last Vital Signs Temp 97.9 F 02/18/25 11:31 Pulse 102 H 02/18/25 11:31 Resp 20 H 02/18/25 11:31 BP 120/82 02/18/25 11:31 Pulse Ox 96 02/18/25 11:31 O2 Del Method Nasal Cannula 02/18/25 11:31 O2 Flow Rate 4 02/18/25 05:30 02/18/25 02/18/25 02/18/25 06:59 14:59 22:59 Intake Total 120 / 120 Balance 120 / 120 Weight last 48 hrs Weight 189 lb 11.2 oz Weight 182 lb 5 oz Weight 188 lb 12.8 oz Weight 173 lb Physical Exam Narrative: Per RN General: alert, NAD obese HEENT: EOMI Pulmonary: Diminished breath sounds bilaterally Cardiovascular: rrr, nl s1s2, Abdomen: soft, nt, nd, no r/g, Extremities: no edema Neurologic: grossly intact Agree with above exam Data 02/17/25 05:09 02/17/25 05:09 A&P Assessment and plan 1. Pleural effusion, right: Plan: # Recurrent right-sided pleural effusion malignant secondary to breast cancer-most likely due to breast cancer. - She has received at least 3 thoracentesis in the last 1 month. I discussed with Dr. Mills regarding the need for PleurX catheter while she undergoes chemotherapy to reduce hospitalizations. We will try to get her an appointment date at [place] before discharge if possible for PleurX catheter placement. If not, this will be scheduled as outpatient. # Breast cancer stage IV with mets to the lungs status post robotic bronchoscopy with mediastinal staging 01/05/2025. Showing metastatic poorly differentiated carcinoma consistent with breast. Patient has undergone multiple rounds of chemotherapy since 2022. Dr. Avalos is an oncologist. # Severe aortic stenosis status post TAVR # Post COVID 2019 with some interstitial lung disease like changes # Chronic respiratory failure # Asthma # History of DVT and PE Thank you for the consult Medical decision making level-high High MDM includes number and complexity of problems actively addressed during encounter, amount and/or complexity of data reviewed/ordered [ previous or external records, resulted lab(s)/test(s), ordered lab(s)/test(s), independent historian, independent test interpretation and other healthcare professional discussion] and described risk of complication, morbidity or mortality of management as documented This documentation was created by [employer] apprentice architect software (known for inherent apprentice architect error). Every effort was made to assure accuracy of apprentice architect. Any obvious errors or omissions should be clarified with the author of the document Telemedicine Consent Patient seen today via Telemedicine by agreement and consent of patient.? Telemedicine technology used during the visit includes audio and, as available, review of images.? The patient encounter is appropriate and reasonable under the circumstances given the patient?s particular presentation at this time.? The patient has been advised of the potential risks and limitations of this mode of treatment (including but not limited to the absence of in-person examination) and has agreed to be treated in a remote fashion in spite of them.? Any, and all, of the patient?s/patient?s family?s questions on this issue have been answered and I have made no promises or guarantees to the patient. PDMP PDMP Reviewed: Not Reviewed Coding Level of Care Code 25179 Diagnoses Pleural effusion, right J90
--- NOTE | 2025-02-18 20:45 | PC.NURSE ---
Discharge instructions were given to daughter. Daughter verbalized understanding and denied any further medical concerns/questions regarding patient's conditions. Pt left with daughter by wheelchair. vital signs documented.
[2025-02-20 19:50] LABS: Amylase, Pleural Fluid 19 U/L
== END 2025-02-18 20:30 | disposition home or self-care (01) ==
LOC: ER 17:32 → ER IP 19:43 → MEDSURG 02-17 01:31
PROVIDERS: Admitting Provider Internal Medicine; Emergency Provider Emergency Medicine; PCP Family Medicine; Visit Provider Internal Medicine
DX: R09.02 Hypoxemia (principal); R91.8 Other nonspecific abnormal finding of lung field; J90 Pleural effusion, not elsewhere classified; Z95.3 Presence of xenogenic heart valve; C50.012 Malignant neoplasm of nipple and areola, left female breast; Z17.1 Estrogen receptor negative status [ER-]; I82.5Y3 Chronic embolism and thrombosis of unspecified deep veins of proximal lower extremity, bilateral; Z79.891 Long term (current) use of opiate analgesic; Z79.01 Long term (current) use of anticoagulants; Z99.81 Dependence on supplemental oxygen; Z85.3 Personal history of malignant neoplasm of breast; E03.9 Hypothyroidism, unspecified; E78.5 Hyperlipidemia, unspecified; I10 Essential (primary) hypertension; E66.9 Obesity, unspecified; Z68.30 Body mass index [BMI] 30.0-30.9, adult; Z95.828 Presence of other vascular implants and grafts
CPT/HCPCS: 32555; 36415; 71045; 80053; 80503; 82150; 82945; 83615; 83735; 83880; 83986; 84100; 84484; 85025; 85610; 85730; 89050; 93005; 99285; G0378; J9999; Q3014

== ENCOUNTER 2025-03-11 08:19 | Day surgery (SDC) | payer MEDICARE, MEDICAID, SELFPAY ==
[2025-03-11 08:42] VITALS: BP 111/70; PULSE 87; RESP 18; TEMP 36.4; O2SAT 99
--- NOTE | 2025-03-11 08:46 | US_ITS ---
WS: [id number] ULTRASOUND-GUIDED THORACENTESIS, RIGHT HISTORY: pleural effusion Procedure, risks, and complications were explained to the patient. With the patient in an upright position, the skin over the RIGHT posterior thorax was cleansed with ChloraPrep and anesthetized with 1% buffered lidocaine. A 5 Khmer Yueh needle is inserted into the pleural fluid without complication. Approximately 800 cc of dark red pleural fluid is removed without difficulty. / thoracentesis [id number] IMPRESSION: 1. RIGHT thoracentesis yielding 800 cc of fluid. 2. Chest radiograph to follow to evaluate for pneumothorax.
--- NOTE | 2025-03-11 08:57 | XR_ITS ---
WS: [id number] PORTABLE CHEST HISTORY: Post thoracentesis, RIGHT COMPARISON: 02/17/2025 No pneumothorax status post RIGHT thoracentesis. Small residual pleural effusion versus pleural thickening at the RIGHT lung base. Numerous metastatic lung nodules are noted. Compressive atelectasis at the RIGHT lung base. Cardiac size: Normal. Mediastinum/Aorta: Mild atherosclerosis aorta. No osseous abnormality seen. RIGHT jugular Port-A-Cath. Aortic valve replacement. XR/XR chest 1V portable [id number] IMPRESSION: 1. No pneumothorax status post RIGHT thoracentesis. 2. Patient has known metastatic pulmonary nodules.
--- NOTE | 2025-03-11 09:08 | SUR.OPER ---
Dr. Brown at bedside to perform right US guided thoracentesis. Time out performed. Site prepped in sterile fashion. 800 mL bloody fluid removed. O2 sat remained 99% on 4L oxygen via nasal cannula during procedure, as per home use. Pressure held at procedure site and bandaid applied as dressing. CXR complete post procedure. No pneumo noted. No bleeding noted on bandaid to right back. Ok to discharge home per Dr. Brown. Pt instructed to return to ED for bleeding from procedure site, increased shortness of breath, or pain. Pt off unit via wheelchair to be taken home by pt daughter via personal vehicle.
== END 2025-03-11 09:40 | disposition home or self-care (01) ==
LOC: GILAB 08:21
PROVIDERS: Radiology Diagnostic Radiology; PCP Family Medicine; Visit Provider Nurse Practitioner Family
PROC: (CPT 32554; principal; 2025-03-11 09:00)
DX: J90 Pleural effusion, not elsewhere classified (principal)
CPT/HCPCS: 32555; 71045

== ENCOUNTER 2025-03-15 08:30 | Oncology outpatient (recurring) (ONCR) | payer MEDICARE, MEDICAID, SELFPAY ==
[2025-02-22 09:20] LABS: Hematocrit 37.6 % (36-47); Hemoglobin 12.00 g/dL (11.27-16.99); Mean Corpuscular HGB Conc 31.9 g/dL (30-55); Mean Corpuscular Hemoglobin 30.2 pg (27-33); Mean Corpuscular Volume 94.5 fl (85-98); Nucleated Red Blood Cells % 0 %; Platelet Count 301 10^3/cmm (157-399); Red Blood Count 3.98 10^6/uL (3.85-5.65); White Blood Count 9.55 10^3/uL (3.29-11.43)
[2025-02-22 09:51] LABS: Alanine Aminotransferase 10 U/L (0-33); Albumin Level 3.3 g/dL (3.5-5.2); Alkaline Phosphatase 110 U/L (35-105); Anion Gap 16.2 (5-19); Aspartate Amino Transferase 25 U/L (0-32); Blood Urea Nitrogen 20 mg/dL (8-23); CA 15-3 39.2 U/mL (0-25); Calcium 10.4 mg/dL (8.5-10.5); Carbon Dioxide 28 mmol/L (22-29); Chloride 96 mmol/L (98-107); Globulin 3.5 g/dL (1.3-4.6); Glucose 121 mg/dL (65-115); Osmolality Calculated 288 mOsm/kg (285-295); Potassium 3.2 mmol/L (3.5-5.1); Sodium 137 mmol/L (136-145); Total Protein 6.8 g/dL (6.6-8.7)
[2025-02-22] MEDS: ondansetron 2 mg/ML SDV 2 mL 8 MG IVP (10:56)
[2025-02-22] MEDS: dexamethasone 4 mg/mL INJ 5 mL 12 MG IVP (10:57)
[2025-02-22 11:29] VITALS: BP 109/74; PULSE 87; RESP 16; TEMP 36.3; O2SAT 90
[2025-02-22] MEDS: paclitaxel protein-bound 190 MG in empty flexible container 1 EACH 76 MG IV (11:31)
[2025-02-22 14:33] VITALS: BP 110/81; PULSE 97; RESP 17; TEMP 36.5; O2SAT 93
[2025-03-07 09:29] LABS: Hematocrit 34.3 % (36-47); Hemoglobin 10.80 g/dL (11.27-16.99); Mean Corpuscular HGB Conc 31.5 g/dL (30-55); Mean Corpuscular Hemoglobin 30.9 pg (27-33); Mean Corpuscular Volume 98.3 fl (85-98); Nucleated Red Blood Cells % 0 %; Platelet Count 251 10^3/cmm (157-399); Red Blood Count 3.49 10^6/uL (3.85-5.65); White Blood Count 4.59 10^3/uL (3.29-11.43)
[2025-03-07 09:52] LABS: Alanine Aminotransferase 19 U/L (0-33); Albumin Level 3.3 g/dL (3.5-5.2); Alkaline Phosphatase 134 U/L (35-105); Anion Gap 11.1 (5-19); Aspartate Amino Transferase 26 U/L (0-32); Blood Urea Nitrogen 17 mg/dL (8-23); Calcium 10.4 mg/dL (8.5-10.5); Carbon Dioxide 30 mmol/L (22-29); Chloride 102 mmol/L (98-107); Globulin 2.6 g/dL (1.3-4.6); Glucose 100 mg/dL (65-115); Osmolality Calculated 290 mOsm/kg (285-295); Potassium 4.1 mmol/L (3.5-5.1); Sodium 139 mmol/L (136-145); Total Protein 5.9 g/dL (6.6-8.7)
[2025-03-07] MEDS: dexamethasone 4 mg/mL INJ 5 mL 12 MG IVP (11:56)
[2025-03-07] MEDS: ondansetron 2 mg/ML SDV 2 mL 8 MG IVP (11:57)
[2025-03-07] MEDS: paclitaxel protein-bound 190 MG in empty flexible container 1 EACH 76 MG IV (12:18)
[2025-03-07 13:16] VITALS: BP 106/73; PULSE 86; RESP 17; TEMP 36.8; O2SAT 96
[2025-03-15 08:46] LABS: Hematocrit 30.9 % (36-47); Hemoglobin 10.00 g/dL (11.27-16.99); Mean Corpuscular HGB Conc 32.4 g/dL (30-55); Mean Corpuscular Hemoglobin 30.4 pg (27-33); Mean Corpuscular Volume 93.9 fl (85-98); Nucleated Red Blood Cells % 0 %; Platelet Count 192 10^3/cmm (157-399); Red Blood Count 3.29 10^6/uL (3.85-5.65); White Blood Count 4.30 10^3/uL (3.29-11.43)
[2025-03-15 09:13] LABS: Alanine Aminotransferase 24 U/L (0-33); Albumin Level 3.4 g/dL (3.5-5.2); Alkaline Phosphatase 109 U/L (35-105); Anion Gap 10.7 (5-19); Aspartate Amino Transferase 21 U/L (0-32); Blood Urea Nitrogen 15 mg/dL (8-23); Calcium 10.2 mg/dL (8.5-10.5); Carbon Dioxide 30 mmol/L (22-29); Chloride 100 mmol/L (98-107); Creatinine Clr Calc Pharmacy 0; Globulin 2.5 g/dL (1.3-4.6); Glucose 102 mg/dL (65-115); Osmolality Calculated 285 mOsm/kg (285-295); Potassium 3.7 mmol/L (3.5-5.1); Sodium 137 mmol/L (136-145); Total Protein 5.9 g/dL (6.6-8.7)
[2025-03-15] MEDS: dexamethasone 4 mg/mL INJ 5 mL 12 MG IVP (10:48)
[2025-03-15] MEDS: ondansetron 2 mg/ML SDV 2 mL 8 MG IVP (10:51)
[2025-03-15] MEDS: paclitaxel protein-bound 190 MG in empty flexible container 1 EACH 76 MG IV (11:27)
== END 2025-03-15 23:59 | disposition home or self-care (01) ==
PROVIDERS: Nurse Practitioner; PCP Family Medicine; Visit Provider Internal Medicine Medical Oncology
DX: Z51.11 Encounter for antineoplastic chemotherapy; C50.412 Malignant neoplasm of upper-outer quadrant of left female breast; Z17.1 Estrogen receptor negative status [ER-]; C78.00 Secondary malignant neoplasm of unspecified lung; E03.9 Hypothyroidism, unspecified; J90 Pleural effusion, not elsewhere classified; Z79.52 Long term (current) use of systemic steroids; Z79.899 Other long term (current) drug therapy; Z92.3 Personal history of irradiation; Z92.25 Personal history of immunosuppression therapy; Z53.9 Procedure and treatment not carried out, unspecified reason
CPT/HCPCS: 80053; 85025; 86300; 96367; 96375; 96413; 99214; 99215; J1100; J2405; J3480; J3490; J7040; J7050; J9264; J9999

== ENCOUNTER 2025-04-12 09:02 | Oncology outpatient (recurring) (ONCR) | payer MEDICARE, MEDICAID, SELFPAY ==
[2025-03-24 10:29] LABS: Hematocrit 29.5 % (36-47); Hemoglobin 9.30 g/dL (11.27-16.99); Mean Corpuscular HGB Conc 31.5 g/dL (30-55); Mean Corpuscular Hemoglobin 30.2 pg (27-33); Mean Corpuscular Volume 95.8 fl (85-98); Nucleated Red Blood Cells % 0.9 %; Platelet Count 210 10^3/cmm (157-399); Red Blood Count 3.08 10^6/uL (3.85-5.65); White Blood Count 3.44 10^3/uL (3.29-11.43)
[2025-03-24 10:48] LABS: Alanine Aminotransferase 23 U/L (0-33); Albumin Level 3.4 g/dL (3.5-5.2); Alkaline Phosphatase 90 U/L (35-105); Anion Gap 12.0 (5-19); Aspartate Amino Transferase 25 U/L (0-32); Blood Urea Nitrogen 23 mg/dL (8-23); Calcium 9.9 mg/dL (8.5-10.5); Carbon Dioxide 26 mmol/L (22-29); Chloride 105 mmol/L (98-107); Globulin 2.4 g/dL (1.3-4.6); Glucose 113 mg/dL (65-115); Osmolality Calculated 292 mOsm/kg (285-295); Potassium 4.0 mmol/L (3.5-5.1); Sodium 139 mmol/L (136-145); Total Protein 5.8 g/dL (6.6-8.7)
--- NOTE | 2025-03-24 11:32 | XR_ITS ---
WS: [id number] Exam: XR chest 3V [id number] Date/Time of Exam: 03/24/2025 11:43 AM Reason For Exam: eval for thoracentesis Comparison 03/11/2025. Small posterior RIGHT basal pleural effusion noted less than noted on the last exam. Bilateral metastatic pulmonary nodules are identified. No consolidating infiltrates. Heart size is normal. Aortic valve replacement. Right subclavian port extending into the RIGHT atrium. Surgical clips along the LEFT axilla. Bony structures are intact as visualized. XR/XR chest 3V [id number] IMPRESSION: 1. Small posterior RIGHT basal pleural effusion less than noted on the last exa m. 2. Multiple pulmonary metastatic nodules with at least one prominent metastatic mass in the mid RIGHT lung. 3. No pneumothorax.
[2025-03-24 14:17] LABS: CA 15-3 42.6 U/mL (0-25)
[2025-03-29 14:00] LABS: Hematocrit 30.5 % (36-47); Hemoglobin 9.40 g/dL (11.27-16.99); Mean Corpuscular HGB Conc 30.8 g/dL (30-55); Mean Corpuscular Hemoglobin 29.8 pg (27-33); Mean Corpuscular Volume 96.8 fl (85-98); Nucleated Red Blood Cells % 0 %; Platelet Count 191 10^3/cmm (157-399); Red Blood Count 3.15 10^6/uL (3.85-5.65); White Blood Count 4.60 10^3/uL (3.29-11.43)
[2025-03-29 14:19] LABS: Alanine Aminotransferase 17 U/L (0-33); Albumin Level 3.5 g/dL (3.5-5.2); Alkaline Phosphatase 82 U/L (35-105); Anion Gap 11.1 (5-19); Aspartate Amino Transferase 18 U/L (0-32); Blood Urea Nitrogen 21 mg/dL (8-23); Calcium 9.7 mg/dL (8.5-10.5); Carbon Dioxide 28 mmol/L (22-29); Chloride 103 mmol/L (98-107); Globulin 2.1 g/dL (1.3-4.6); Glucose 109 mg/dL (65-115); Osmolality Calculated 290 mOsm/kg (285-295); Potassium 4.1 mmol/L (3.5-5.1); Sodium 138 mmol/L (136-145); Total Protein 5.6 g/dL (6.6-8.7)
[2025-03-29] MEDS: dexamethasone 4 mg/mL INJ 5 mL 12 MG IVP (15:08)
[2025-03-29] MEDS: ondansetron 2 mg/ML SDV 2 mL 8 MG IVP (15:09)
[2025-03-29] MEDS: FLEXIBLE CONTAINER IV (15:52)
[2025-03-29] MEDS: PACLITAXEL PROTEIN BOUND IV (15:52)
[2025-03-29 16:48] VITALS: BP 96/60; PULSE 83; RESP 17; TEMP 36.5; O2SAT 99
[2025-04-05 12:35] LABS: Hematocrit 28.3 % (36-47); Hemoglobin 8.90 g/dL (11.27-16.99); Mean Corpuscular HGB Conc 31.4 g/dL (30-55); Mean Corpuscular Hemoglobin 30.2 pg (27-33); Mean Corpuscular Volume 95.9 fl (85-98); Nucleated Red Blood Cells % 0 %; Platelet Count 178 10^3/cmm (157-399); Red Blood Count 2.95 10^6/uL (3.85-5.65); White Blood Count 3.88 10^3/uL (3.29-11.43)
[2025-04-05 12:55] LABS: Alanine Aminotransferase 29 U/L (0-33); Albumin Level 3.2 g/dL (3.5-5.2); Alkaline Phosphatase 82 U/L (35-105); Anion Gap 14.2 (5-19); Aspartate Amino Transferase 25 U/L (0-32); Blood Urea Nitrogen 25 mg/dL (8-23); Calcium 9.7 mg/dL (8.5-10.5); Carbon Dioxide 26 mmol/L (22-29); Chloride 103 mmol/L (98-107); Globulin 2.4 g/dL (1.3-4.6); Glucose 89 mg/dL (65-115); Osmolality Calculated 292 mOsm/kg (285-295); Potassium 4.2 mmol/L (3.5-5.1); Sodium 139 mmol/L (136-145); Total Protein 5.6 g/dL (6.6-8.7)
[2025-04-05] MEDS: dexamethasone 4 mg/mL INJ 5 mL 12 MG IVP (13:25)
[2025-04-05] MEDS: ondansetron 2 mg/ML SDV 2 mL 8 MG IVP (13:27)
[2025-04-05] MEDS: FLEXIBLE CONTAINER IV (13:54)
[2025-04-05] MEDS: PACLITAXEL PROTEIN BOUND IV (13:54)
[2025-04-05 14:35] VITALS: BP 132/65; PULSE 80; RESP 16; TEMP 36.3; O2SAT 96
[2025-04-12 09:34] LABS: Hematocrit 29.3 % (36-47); Hemoglobin 9.40 g/dL (11.27-16.99); Mean Corpuscular HGB Conc 32.1 g/dL (30-55); Mean Corpuscular Hemoglobin 31.1 pg (27-33); Mean Corpuscular Volume 97.0 fl (85-98); Nucleated Red Blood Cells % 0.8 %; Platelet Count 260 10^3/cmm (157-399); Red Blood Count 3.02 10^6/uL (3.85-5.65); White Blood Count 2.61 10^3/uL (3.29-11.43)
[2025-04-12 10:09] LABS: Alanine Aminotransferase 16 U/L (0-33); Albumin Level 3.5 g/dL (3.5-5.2); Alkaline Phosphatase 87 U/L (35-105); Anion Gap 13.0 (5-19); Aspartate Amino Transferase 17 U/L (0-32); Blood Urea Nitrogen 29 mg/dL (8-23); CA 15-3 44.9 U/mL (0-25); Calcium 9.9 mg/dL (8.5-10.5); Carbon Dioxide 26 mmol/L (22-29); Chloride 105 mmol/L (98-107); Globulin 2.2 g/dL (1.3-4.6); Glucose 90 mg/dL (65-115); Osmolality Calculated 295 mOsm/kg (285-295); Potassium 4.0 mmol/L (3.5-5.1); Sodium 140 mmol/L (136-145); Total Protein 5.7 g/dL (6.6-8.7)
== END 2025-04-20 23:59 | disposition home or self-care (01) ==
PROVIDERS: Nurse Practitioner; PCP Family Medicine; Visit Provider Internal Medicine Medical Oncology
DX: Z53.9 Procedure and treatment not carried out, unspecified reason; C50.412 Malignant neoplasm of upper-outer quadrant of left female breast; Z17.1 Estrogen receptor negative status [ER-]; C78.01 Secondary malignant neoplasm of right lung; E03.9 Hypothyroidism, unspecified; Z79.899 Other long term (current) drug therapy; D70.1 Agranulocytosis secondary to cancer chemotherapy; T45.1X5A Adverse effect of antineoplastic and immunosuppressive drugs, initial encounter
CPT/HCPCS: 71047; 80053; 85025; 86300; 96375; 96413; 99214; J1100; J2405; J3490; J7050; J9264; J9999